=== PATIENT | female | born 1940 | race Caucasian/White ===

== ENCOUNTER → 2018-03-22 08:29 | Outpatient (CLI) | payer MEDICARE, SELFPAY ==
[2018-03-22 12:20] LABS: Absolute Lymphocyte Count 1.37 X10^3/ul (0.83-4.51); Absolute Neutrophil Count 1.4 X10^3/uL (2.0-7.7); Basophil# 0.06 X10^3/uL; Basophil% 1.7 % (0-1); Eosinophil# 0.22 X10^3/uL; Eosinophils% 6.2 % (0-5); Hematocrit 38.2 % (37-47); Hemoglobin 12.8 g/dl (12.0-15.0); Lymphocyte # 1.37 X10^3/ul (4.0); Lymphocyte % 38.5 % (19-41); Mean Corp Hgb Conc 33.5 g/gl (32-36); Mean Corpuscular Volume 83.6 fL (81-99); Monocyte# 0.47 X10^3/uL; Monocyte% 13.2 % (0-10); Neutrophil # 1.43 X10^3/uL (2.7-7.7); Neutrophil % 40.1 % (47-70); Platelet Count 198 K/mm3 (150-450); RBC Distribution Width CV 13.5 % (11.6-14.6); RBC Distribution Width SD 40.8 fl (35.1-43.9); Red Blood Count 4.57 M/mm3 (4.2-5.4); White Blood Count 3.6 K/mm3 (4.4-11.0)
[2018-03-22 12:26] LABS: POSITIVE COUNT NO; POSITIVE DIFFERENTIAL NO; POSITIVE MORPHOLOGY NO
[2018-03-22 12:29] LABS: Anion Gap 8 (5-15); BUN 16 mg/dL (7-18); BUN/Creat Ratio 24.5 RATIO (10-20); Calcium,Total 9.2 mg/dL (8.5-10.1); Chloride 95 mmol/L (98-107); Cholesterol 213 mg/dL (200); Creatinine, Serum 0.65 mg/dL (0.55-1.02); EST Glomerular Filtration Rate 93 mL/min (>60); Est Glom Filt Rate - Afr Amer 113 mL/min (>60); Glucose 96 mg/dL (74-106); High Density Lipoprotein 111 mg/dL; Sodium Level 131 mmol/L (136-145); T4 Free Direct 1.42 ng/dL (0.76-1.46); Thyroid Stim Hormone (TSH) 1.17 uIU/mL (0.358-3.74); Triglycerides 45 mg/dL; Very Low Density Lipoprotein 9 mg/dL (5-40)
== END ==
PROVIDERS: Family Provider Family Medicine; PCP Family Medicine; Visit Provider Family Medicine
DX: E11.9 Type 2 diabetes mellitus without complications (principal); I10 Essential (primary) hypertension; E03.9 Hypothyroidism, unspecified
CPT/HCPCS: 36415; 80048; 80061; 84439; 84443; 85025

== ENCOUNTER → 2018-09-07 10:05 | Outpatient (CLI) | payer MEDICARE, SELFPAY ==
--- NOTE | 2018-09-07 10:21 | CDU_ITS ---
Reason For Study: Vertigo Rt. Velocities/BP Lt. Velocities/BP Prox CCA 79.2/8.79 cm/sec. Prox CCA 112/13.4 cm/sec. Mid CCA 92.6/14.1 cm/sec. Mid CCA 130/17.3 cm/sec. Dist CCA 91.5/13.5 cm/sec. Dist CCA 97.4/15.7 cm/sec. Prox ICA 169/22.3 cm/sec. Prox ICA 128/18.9 cm/sec. Mid ICA 156/20.6 cm/sec. Mid ICA 75.4/21.2 cm/sec. Dist ICA 106/25.5 cm/sec. Dist ICA 93.5/21.2 cm/sec. Rt. ICA/CCA = 1.85. Lt. ICA/CCA = 1.14. Prox ECA 541 cm/sec. Prox ECA 145 cm/sec. Rt. Vert. 82.1 cm/sec. Lt. Vert. 53.4/88.25 cm/sec. Right Extracranial There is homogeneous, smooth atherosclerotic plaque noted in the right common carotid artery. There is heterogeneous, irregular atherosclerotic plaque noted in the right internal carotid artery. The atherosclerotic plaque causes acoustic shadowing. There is intimal thickening but no significant atherosclerotic plaque noted in the right external carotid artery. Antegrade flow is noted in the right vertebral artery. Left Extracranial There is intimal thickening but no significant atherosclerotic plaque noted in the left common carotid artery. There is heterogeneous, irregular atherosclerotic plaque noted in the left internal carotid artery. There is heterogeneous, irregular atherosclerotic plaque noted in the left external carotid artery. Antegrade flow is noted in the left vertebral artery. Procedure Carotid Duplex [id number]. Exam performed in department. 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 Severe stenosis right external carotid Irregular plague at the proximal left internal carotid with 50-69% stenosis. Mild disease left external carotid Patent and antegrade vertebrals bilaterally though higher resistence on the right. Progression of bilateral internal carotid disease is noted from the remote exam of 03/19/09. Ordering Physician: Lyle Oconnell Referring Physician: Daniel Garcia Performed By: Nuzhat Mejia RVT and Student
== END ==
PROVIDERS: Family Provider Family Medicine; PCP Family Medicine; Referring Provider Internal Medicine Cardiovascular Disease; Visit Provider Internal Medicine Cardiovascular Disease
DX: R42 Dizziness and giddiness (principal); R09.89 Other specified symptoms and signs involving the circulatory and respiratory systems
CPT/HCPCS: 93880

== ENCOUNTER → 2018-09-12 11:40 | Outpatient (CLI) | payer MEDICARE, SELFPAY ==
[2018-09-12 12:38] LABS: Hematocrit 38.3 % (37-47); Hemoglobin 12.8 g/dl (12.0-15.0); Mean Corp Hgb Conc 33.4 g/gl (32-36); Mean Corpuscular Hgb 28.6 pg (27.0-32.0); Mean Corpuscular Volume 85.5 fL (81-99); Mean Platelet Vol. 10.5 fl (6.2-12.0); Platelet Count 199 K/mm3 (150-450); RBC Distribution Width CV 12.9 % (11.6-14.6); RBC Distribution Width SD 39.5 fl (35.1-43.9); Red Blood Count 4.48 M/mm3 (4.2-5.4); White Blood Count 4.3 K/mm3 (4.4-11.0)
[2018-09-12 12:42] LABS: Scan Indicated on CBC? Y/N NO
== END ==
PROVIDERS: Family Provider Family Medicine; PCP Family Medicine; Referring Provider Internal Medicine Cardiovascular Disease; Visit Provider Internal Medicine Cardiovascular Disease
DX: R09.89 Other specified symptoms and signs involving the circulatory and respiratory systems (principal); R23.8 Other skin changes
CPT/HCPCS: 36415; 85027

== ENCOUNTER → 2018-12-08 13:40 | Outpatient (CLI) | payer MEDICARE, SELFPAY ==
[2018-09-29 09:36] VITALS: BMI 20.1
--- NOTE | 2018-12-08 13:43 | RAD_ITS ---
STUDY: X-RAY CHEST REASON FOR EXAM: Female, 78 years old. Cough. TECHNIQUE: PA and lateral views of the chest were obtained. Good film quality COMPARISON: X-ray April 26, 2015 FINDINGS: The lungs are clear and expanded. There is no demonstrated pleural abnormality. Normal size heart. Normal mediastinum and dave. Normal visualized pulmonary arteries. Normal visualized aortic arch and descending thoracic aorta. There is prominent dextroscoliosis of the thoracolumbar spine. Normal visualized ribs, clavicles, and shoulders. There is no demonstrated abnormality of the visualized soft tissue structures of the upper abdomen. RAD/Chest PA and Lateral IMPRESSION: No active chest disease. Electronically Signed: Lyle Iqbal, at 12:01 EST Tel , Service support ,
== END ==
PROVIDERS: Family Provider Family Medicine; PCP Family Medicine; Referring Provider Family Medicine; Visit Provider Family Medicine
DX: J18.9 Pneumonia, unspecified organism (principal)
CPT/HCPCS: 71046

== ENCOUNTER → 2019-01-02 12:58 | Outpatient (CLI) | payer MEDICARE, SELFPAY ==
[2018-12-21 10:32] VITALS: BMI 21.0
--- NOTE | 2019-01-02 13:03 | ECHOD_ITS ---
Reason For Study: MURMUR Procedure This was a 2D Doppler, Color Flow transthoracic echocardiogram. Exam performed in department. Left Ventricle Normal size and thickness. The estimated ejection fraction is 65 %. Stage 2 diastolic dysfunction. No regional wall motion abnormalities noted. Right Ventricle Normal size and thickness. Normal systolic function. Atria The left atrium is moderately enlarged. The right atrium is severely enlarged. Normal atrial septum. Mitral Valve Severe mitral annular calcification extending into the posterior leaflet. Mild diffuse mitral valve thickening. Trivial mitral valve insufficiency. Tricuspid Valve Normal tricuspid valve. Mild (1+) tricuspid valve insufficiency. Right ventricular systolic pressure estimated to be 44 mmHg. Mild pulmonary hypertension. Aortic Valve Trisinus/trileaflet aortic valve. Aortic sclerosis, no stenosis. Pulmonic Valve Normal pulmonic valve. Trivial pulmonic valve insufficiency. Great Vessels Normal aortic root. Normal arch. Normal inferior vena cava. Inferior vena cava collapse with sniff. Pericardium/Pleural No pericardial effusion. MMode/2D Measurements & Calculations LVIDd: 4.1 cm IVSd: 1.0 cm Ao root diam: 2.1 cm LVIDs: 2.4 cm LVPWd: 0.99 cm RVDd: 2.8 cm FS: 42.5 % LAV(MOD-sp4): 87.9 ml LVAd ap4: 24.7 cm2 SV(MOD-sp4): 46.2 ml EDV(MOD-sp4): 70.2 ml EDV(sp4-el): 74.0 ml LVAs ap4: 12.6 cm2 ESV(MOD-sp4): 24.1 ml ESV(sp4-el): 23.6 ml EF(MOD-sp4): 65.7 % EF(sp4-el): 68.1 % SV(sp4-el): 50.4 ml LA A4 area: 25.6 cm2 LA dimension(2D): 3.8 cm RA A4 area: 22.4 cm2 Time Measurements MV dec time: 0.39 sec Doppler Measurements & Calculations MV E max juancarlos: 129.0 cm/sec Lat Peak E' Juancarlos: 5.4 cm/sec Med Peak E' Juancarlos: 8.1 cm/sec MV A max juancarlos: 68.0 cm/sec E/E' lat: 24.1 E/E' med: 15.9 MV E/A: 1.9 MV V2 max: 151.1 cm/sec Ao V2 max: 142.0 cm/sec LV V1 max: 86.9 cm/sec MV max P.1 mmHg Ao max P.1 mmHg LV V1 max P.0 mmHg MV V2 mean: 73.3 cm/sec Ao V2 mean: 99.8 cm/sec LV V1 mean P.9 mmHg MV mean P.6 mmHg Ao mean P.4 mmHg LV V1 mean: 66.0 cm/sec MV V2 VTI: 40.4 cm Ao V2 VTI: 35.4 cm LV V1 VTI: 24.7 cm PA V2 max: 71.1 cm/sec PI end-d juancarlos: 63.7 cm/sec TR max juancarlos: 291.9 cm/sec TR max P.1 mmHg MV P1/2t-pr_phl: 76.3 msec Interpretation Summary The estimated ejection fraction is 65 %. Stage 2 diastolic dysfunction. The left atrium is moderately enlarged. The right atrium is severely enlarged. Trivial mitral valve insufficiency. Mild (1+) tricuspid valve insufficiency. Right ventricular systolic pressure estimated to be 44 mmHg. Mild pulmonary hypertension. Compared to echo report dated 12/14/2014, LV function has remained the same, but RVSP has gone from 28 to 44 mm Hg. Ordering Physician: Janice Chavez/Lyle Oconnell Referring Physician: BERNARD MALIK Performed By: Karlene Lubin, UTE, RVT
== END ==
PROVIDERS: Family Provider Family Medicine; PCP Family Medicine; Referring Provider Physician Assistant Medical; Visit Provider Physician Assistant Medical
DX: R01.1 Cardiac murmur, unspecified (principal)
CPT/HCPCS: 93306

== ENCOUNTER 2019-02-13 07:28 | Day surgery (SDC) | payer MEDICARE, SELFPAY ==
[2019-02-01 10:10] VITALS: BMI 19.7
[2019-02-13 07:47] VITALS: BP 126/64; PULSE 55; RESP 18; TEMP 36.8; O2SAT 100; BMI 20.7
[2019-02-13 08:01] LABS: Bedside Glucose 141 mg/dL (70-110)
--- NOTE | 2019-02-13 08:30 | RAD_ITS ---
FLUOROSCOPIC GUIDED CERVICAL FACET C4-C7 LEFT PAIN BLOCK INJECTION: REASON FOR EXAM: Female, 78 years old. Neck pain FLUOROSCOPY TIME (if supplied): 17.8 S 1.22 MGY TECHNIQUE: Intraoperative fluoroscopy. For intraoperative views. COMPARISON: None. FINDINGS: Degenerative changes are noted in the cervical spine RAD/Cerv Spine 2 or 3 Views IMPRESSION: Successful cervical spine fluoroscopic guided injection. Electronically Signed: Aditya Calvert, at 14:11 EDT Tel , Service support ,
[2019-02-13] MEDS: MethylPREDNISolone Acetate 80 MG/ML Vial (08:48)
[2019-02-13] MEDS: Bupivacaine 0.25% 30 ML Vial (08:48)
[2019-02-13 08:57] VITALS: BP 126/64; BP 134/51; PULSE 55; RESP 16; TEMP 36.5; O2SAT 98
[2019-02-13 09:05] VITALS: BP 126/64; BP 133/51; PULSE 62; RESP 16; O2SAT 98
[2019-02-13 09:10] VITALS: BP 126/64; BP 133/51; PULSE 65; RESP 16; O2SAT 98
[2019-02-13 09:15] VITALS: BP 126/64; BP 159/62; PULSE 68; RESP 16; TEMP 36.6; O2SAT 100
[2019-02-13 10:07] VITALS: BP 126/64
--- NOTE | 2019-02-13 10:55 | OP.PCM_ITS ---
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 Report of Operation Date of Procedure: 02/13/19 Pre-Operative Diagnosis: Cervical spondylosis, cervical degenerative disc disease, cervical facet arthropathy Post-Operative Diagnosis: Cervical spondylosis, cervical degenerative disc disease, cervical facet arthropathy Surgery/Procedure Performed:: Right sided cervical facet steroid injection C4, C5, C6, C7 Description of Surgical Findings:: PROCEDURE: Right-sided cervical facet steroid injection C4, C5, C6, C7 PREOPERATIVE DIAGNOSES: Cervical spondylosis, cervical degenerative disc disease, and cervical facet arthropathy POSTOPERATIVE DIAGNOSES: Cervical spondylosis, cervical degenerative disc disease, and cervical facet arthropathy ANESTHESIA: MAC COMPLICATIONS: None BLOOD LOSS: Minimal PROCEDURE IN DETAIL: History and physical today was reviewed. Risks and benefits of the procedure were explained. The patient understood, agreed to our procedure, and informed consent was obtained. IV inserted per routine protocol. The patient was taken to the operating room, placed in a prone position with a pillow positioned underneath the chest. The neck area was prepped and draped in a sterile fashion using iodine x3. Under fluoroscopy guidance, on AP view, C4 through C7 vertebral bodies were visualized, at approximately 10 degrees starting on the right C4 ending on the right C7 passing through the C5- C6 using a 25-gauge 3-1/2 inch spinal needle the needle was advanced via the skin through the needle's maneuver and directed towards the epiphyseal junction of each corresponding vertebra once the tip of the needle was at the vicinity of the medial branch and contact with the bone after negative aspiration for blood or CSF and confirmation AP oblique as well as lateral view a total of 4 cc of preservative-free 0.25% Marcaine with 80 mg of Depo-Medrol were injected in divided doses between those 4 levels the needles were then removed intact patient experienced no sinus symptoms of intrathecal or intravascular injection patient experienced no paresthesia the procedure was completed without any apparent difficulty any complication the patient appeared to tolerate well. ASSESSMENT AND PLAN: This is an 78-year-old Female with cervical spondylosis, cervical degenerative disc disease, and cervical facet arthropathy, status post right-sided cervical facet steroid injection C4 through C7. The patient will continue her current medications. The patient will follow up in approximately 2 weeks fo reevaluation.
== END 2019-02-13 10:08 | disposition home or self-care (01) ==
LOC: SDC 07:31 → AC 07:31
PROVIDERS: Family Provider Family Medicine; PCP Family Medicine; Referring Provider Anesthesiology Pain Medicine; Visit Provider Anesthesiology Pain Medicine
PROC: 3E0U3BZ Introduction of Anesthetic Agent into Joints, Percutaneous Approach (ICD-10-PCS; CPT 64490; principal; 2019-02-13 08:25)
DX: M47.892 Other spondylosis, cervical region (principal); M50.321 Other cervical disc degeneration at C4-C5 level; M46.82 Other specified inflammatory spondylopathies, cervical region; F32.9 Major depressive disorder, single episode, unspecified; F41.9 Anxiety disorder, unspecified; I34.1 Nonrheumatic mitral (valve) prolapse; I10 Essential (primary) hypertension; I48.92 Unspecified atrial flutter; E78.5 Hyperlipidemia, unspecified; E03.9 Hypothyroidism, unspecified; M19.90 Unspecified osteoarthritis, unspecified site; M51.36 Other intervertebral disc degeneration, lumbar region; M48.061 Spinal stenosis, lumbar region without neurogenic claudication; R73.03 Prediabetes; Z79.82 Long term (current) use of aspirin; Z79.891 Long term (current) use of opiate analgesic; Z79.01 Long term (current) use of anticoagulants; Z79.899 Other long term (current) drug therapy
CPT/HCPCS: 64491; 64492; 64490; 72040; 82962; J7120

== ENCOUNTER → 2019-03-01 14:27 | Outpatient (CLI) | payer MEDICARE, SELFPAY ==
[2019-02-13 07:47] VITALS: BMI 20.7
--- NOTE | 2019-03-01 14:33 | RAD_ITS ---
STUDY: X-RAY - THORACIC SPINE REASON FOR EXAM: Female, 78 years old. Chronic back pain. TECHNIQUE: 2 view(s) of the thoracic spine were obtained. COMPARISON: Comparison is made with prior study dated June 18, 2014. FINDINGS: There is an increase in the normal thoracic kyphosis. Stable dextroscoliosis of the lower thoracic and upper lumbar spine. There is demineralization of the thoracic spine with endplate spondylosis. There is multilevel disc space narrowing of the thoracic spine. Calcification of the aortic arch and descending thoracic aorta. RAD/Thoracic Spine 2 Views IMPRESSION: Dextroscoliosis. Multilevel spondylosis and the disc space narrowing. Electronically Signed: Holland Ferreira, at 8:49 EDT , Service support ,
== END ==
PROVIDERS: Family Provider Family Medicine; PCP Family Medicine; Referring Provider Nurse Practitioner Family; Visit Provider Nurse Practitioner Family
DX: M54.6 Pain in thoracic spine (principal)
CPT/HCPCS: 72070

== ENCOUNTER → 2019-04-27 13:40 | Outpatient (CLI) | payer MEDICARE, SELFPAY ==
--- NOTE | 2019-04-27 13:46 | CT_ITS ---
STUDY: CT BRAIN WITHOUT CONTRAST REASON FOR EXAM: Female, 78 years old. Memory loss. RADIATION DOSAGE (If Supplied By Facility): CTDIvol = ( 44.99 ) mGy, DLP = ( 796.11 ) mGycm TECHNIQUE: Transaxial CT imaging of the brain was performed without administration of intravenous contrast material. Individualized dose optimization techniques were used for this CT. COMPARISON: No relevant priors. FINDINGS: Normal soft tissue structures. Normal calvarium. Normal size ventricles and extra-axial spaces for the patient's age. There are areas of decreased attenuation within the white matter tracts of the supratentorial brain, consistent with microvascular disease changes. Normal basal ganglia and thalami. Normal brainstem. Normal cerebellum. There is no intracranial hemorrhage. There are no findings of an acute ischemic infarction. Normal visualized paranasal sinuses. CT/Brain/Head without Contrast IMPRESSION: Chronic involutional changes without evidence of acute intracranial or calvarial abnormality. Electronically Signed: Kings Hammond DO at 17:27 EDT Tel [phone], Service support ,
== END ==
PROVIDERS: Family Provider Family Medicine Geriatric Medicine; PCP Family Medicine Geriatric Medicine; Referring Provider Internal Medicine; Visit Provider Internal Medicine
DX: R41.3 Other amnesia (principal)
CPT/HCPCS: 70450

== ENCOUNTER → 2019-05-18 | Outpatient (CLI) | payer MEDICARE, SELFPAY ==
--- NOTE | 2019-05-18 14:23 | BI_ITS ---
MAMMOGRAPHY - BILATERAL SCREENING 3-D TOMOSYNTHESIS REASON FOR EXAM: Female, 78 years old. Bilateral Screening 3-D tomosynthesis PERTINENT HISTORY: No significant family history. TECHNIQUE: 2-D mammograms and 3-D Tomosynthesis of the breast (s) were performed. CAD was performed. COMPARISON: August 30, 2014. FINDINGS: The breast composition is heterogeneous prominence of the fibroglandular tissue without obvious spiculated lesion, microcalcifications, bilateral skin thickening noted but no nipple retraction in either side. There are clusters of microcalcification seen within the skin in the upper and inferior aspect of the left base. Benign calcifications noted within the parenchyma bilaterally. BI/SCREEN MAMM (CAD) W/MERRILL BILAT IMPRESSION: No mammographic signs of malignancy. Routine yearly mammograms recommended. BIRADS-2 FOLLOW UP RECOMMENDATION: Yearly follow up mammogram recommended. (A) Approximately 10% of breast cancers are not detected by mammography. A normal mammogram should not delay biopsy of a clinically suspicious abnormality. Electronically Signed: Ghazala Finnegan, at 12:08 EDT Tel , Service support ,
--- NOTE | 2019-05-18 14:26 | BD_ITS ---
STUDY: DUAL ENERGY X-RAY ABSORPTIOMETRY / DXA REASON FOR EXAM: Female, 78 years old. The patient is postmenopausal. Loss of height. TECHNIQUE: Bone Mineral Density (BMD) measurements of lumbar spine and bilateral hips were obtained. COMPARISON: Comparison is made with prior examination dated April 02, 2015. FINDINGS: Lumbar Spine (L1-L4): g/cm2 (0.833) / T-score (-3.1) / Z-score (-1.2) Findings are suggestive of osteoporosis with a high fracture risk. Left Femur Total: g/cm2 (0.723) / T-score (-2.3) / Z-score (-0.2) Left Femoral Neck: g/cm2 (0.712) / T-score (-2.3) / Z-score (-0.2) Right Femur Total: g/cm2 (0.669) / T-score (-2.7) / Z-score (-0.6) Right Femoral Neck: g/cm2 (0.7-1) / T-score (-2.3) / Z-score (-0.1) The T-Scores on the most recent prior examination were: Lumbar Spine (L1-L4): There has been worsening of bone density since the previous examination. Left Femur Total: which represents a worsening of 6.6%. Right Femur Total: which represents a worsening of 9.8% . BD/Dexa Bone Density Study IMPRESSION: The patient is considered osteoporotic as outlined below according to World Miss[employer] Organization (WHO) criteria with a high fracture risk. There has been worsening of bone density since the previous examination. Reference Information: The T-score is the number of standard deviations above or below the standard which is normal for young adults at their peak bone mineral density. The World Health Organization (WHO) interprets the T-scores as follows: Above -1 Normal bone density Between -1 and -2.5 Osteopenia Equal to / or below -2.5 Osteoporosis As a practical clinical guideline, osteopenia may be graded as follows: Mild -1 through -1.5 Moderate -1.6 through -2.0 Severe -2.1 through -2.4 The Z-score is the number of standard deviations above or below age-matched controls. A Z-score of less than -1.5 would be considered abnormal. References: 1. NIH Osteoporosis and Related Bone Diseases http://www.osteo.org 2. International Society for Clinical Densitometry http://www.iscd.org 3. National Osteoporosis Foundation http://www.nof.org Electronically Signed: Holland Ferreira, at 15:09 EDT , Service support ,
== END | disposition home or self-care (01) ==
LOC: OPBD 14:20
PROVIDERS: Family Provider Internal Medicine; PCP Internal Medicine; Referring Provider Internal Medicine; Visit Provider Internal Medicine
DX: Z12.31 Encounter for screening mammogram for malignant neoplasm of breast (principal); Z78.0 Asymptomatic menopausal state
CPT/HCPCS: 77063; 77067; 77080

== ENCOUNTER → 2019-05-30 15:58 | Outpatient (CLI) | payer MEDICARE, SELFPAY ==
--- NOTE | 2019-05-30 16:01 | VDLE_ITS ---
Reason For Study: swelling RIGHT LEFT GSV is normal. CFV is compressible, spontaneous, phasic, CFV is compressible, spontaneous, phasic, competent, and demonstrates normal competent and demonstrates normal augmentation. augmentation. FV is compressible, spontaneous, phasic, competent and demonstrates normal augmentation. POP V is compressible, spontaneous, phasic, competent and demonstrates normal augmentation. T/P Trunk is compressible. PTV is compressible. RT PerV is compressible. Hypoechoic area behind the knee measuring 2.57 x .94 cm. Area is nonvascular. Procedure Exam performed in department. The exam was diagnostic. A preliminary report was called and/or faxed to [facility]. Interpretation Summary Deep veins of the right lower extremity are patent and compressible segmentally. There is no evidence of right lower extremity deep vein thrombosis. Valvular competence appears intact within the proximal deep venous system on the right . The right greater saphenous vein appears patent and compressible segmentally. A non-vascular, hypoechoic structure is noted in the right popliteal space, measuring 2.57 cm x 0.94 cm. This probably represents a popliteal cyst. Clinical correlation is advised. Ordering Physician: Karla Bhagat Performed By: Anant Doan, RVT
--- NOTE | 2019-05-30 16:25 | RAD_ITS ---
STUDY: X-RAY - RIGHT FOOT CLINICAL: Female, 78 years old. Right foot pain. Stubbed toe 2 weeks ago. TECHNIQUE: 3 view(s) of the foot. COMPARISON: None. FINDINGS: Generalized osteopenia. Normal talus, calcaneus, and tarsal bones. Hemarthrosis of the visualized subtalar, talonavicular, calcaneocuboid, tarsal and tarsometatarsal articulations. Normal metatarsi. There is mild degenerative arthrosis of the metatarsophalangeal joint of the hallux with a hallux valgus deformity. Normal tibial and fibular sesamoid bones. Normal interphalangeal joint of the great toe. Normal phalanges of the great toe. Normal second through fifth metatarsophalangeal joints. Normal interphalangeal joints and phalanges of the lesser toes. The soft tissue structures are unremarkable. RAD/Foot min 3 Views IMPRESSION: Osteopenia and degenerative changes right foot. There is no fracture or dislocation. Electronically Signed: Kings Hammond DO at 16:37 EDT Tel [phone], Service support ,
== END ==
PROVIDERS: Family Provider Internal Medicine; PCP Internal Medicine; Referring Provider Internal Medicine; Visit Provider Internal Medicine
DX: M79.89 Other specified soft tissue disorders (principal); M79.674 Pain in right toe(s)
CPT/HCPCS: 73630; 93971

== ENCOUNTER → 2019-09-14 11:03 | Outpatient (CLI) | payer MEDICARE, SELFPAY ==
--- NOTE | 2019-09-14 11:05 | CDU_ITS ---
Reason For Study: carotid stenosis Rt. Velocities/BP Lt. Velocities/BP Prox CCA 68.2/9.5 cm/sec. Prox CCA 84.9/9.1 cm/sec. Mid CCA 70.8/13.4 cm/sec. Mid CCA 105.8/16.8 cm/sec. Dist CCA 70.8/13.4 cm/sec. Dist CCA 84.9/11.3 cm/sec. Prox ICA 202.9/29.3 cm/sec. Prox ICA 117.5/18.8 cm/sec. Mid ICA 132.3/20.4 cm/sec. Mid ICA 66.7/13.9 cm/sec. Dist ICA 103.8/24.8 cm/sec. Dist ICA 80.2/23.7 cm/sec. Rt. ICA/CCA = 2.9. Lt. ICA/CCA = 1.1. Prox ECA 508.9 cm/sec. Prox ECA 161.3 cm/sec. Rt. Vert. 58.6 cm/sec. Lt. Vert. 64.2/16.3 cm/sec. Right Extracranial There is homogeneous, smooth atherosclerotic plaque noted in the right common carotid artery. There is heterogeneous, irregular atherosclerotic plaque noted in the right internal carotid artery. There is homogeneous, smooth atherosclerotic plaque noted in the right external carotid artery. Antegrade flow is noted in the right vertebral artery. Left Extracranial There is homogeneous, smooth atherosclerotic plaque noted in the left common carotid artery. There is heterogeneous, irregular atherosclerotic plaque noted in the left internal carotid artery. There is heterogeneous, irregular atherosclerotic plaque noted in the left external carotid artery. Antegrade flow is noted in the left vertebral artery. Procedure Carotid Duplex [id number]. The exam was diagnostic. Exam performed in department. Interpretation Summary Irregular calcific plague at the proximal right internal and external carotid arteries. 50-69% stenosis right internal carotid >50% stenosis right external carotid Irregular plague at the proximal left internal and external carotid arteries. <50% stenosis left internal carotid <50% stenosis left external carotid Patent and antegrade vertebrals bilaterally Slight velocity elevation right internal carotid since previous exam of 09/07/18 Ordering Physician: Enmanuel Matthews Performed By: Anant Doan RVT
== END ==
PROVIDERS: Family Provider Internal Medicine; PCP Internal Medicine; Referring Provider Surgery; Visit Provider Surgery
DX: I65.23 Occlusion and stenosis of bilateral carotid arteries (principal); R09.89 Other specified symptoms and signs involving the circulatory and respiratory systems
CPT/HCPCS: 93880

== ENCOUNTER → 2019-12-11 10:38 | Outpatient (CLI) | payer MEDICARE, SELFPAY ==
[2019-09-22 13:31] VITALS: BMI 19.1
--- NOTE | 2019-12-11 10:45 | RAD_ITS ---
STUDY: X-RAY - PELVIS AND RIGHT HIP REASON FOR EXAM: Female, 79 years old. PAIN AFTER FALL TECHNIQUE: 3 views of the pelvis and hip. COMPARISON: Comparison is made with prior examination dated July 31, 2017. FINDINGS: There is a non-specific bowel gas pattern. Calcified fibroid uterus. Normal bilateral iliac wings, sacroiliac joints and visualized sacrum. Normal bilateral superior and inferior pubic rami. Normal pubic symphysis. Normal bilateral ischial tuberosities. Normal visualized femoral head. Normal acetabulum. There is moderate articular joint space narrowing of the hip. Dextroscoliosis of the lumbar spine with the disc space narrowing in the lower lumbar spine. RAD/HIP, UNI W/ Pelvis 2-3 Views IMPRESSION: Degenerative changes of the hip joint. No acute fracture is seen. Electronically Signed: Holland Ferreira, at 11:14 EST , Service support ,
== END ==
PROVIDERS: Family Provider Internal Medicine; PCP Internal Medicine; Referring Provider Internal Medicine; Visit Provider Internal Medicine
DX: M25.551 Pain in right hip (principal)
CPT/HCPCS: 73502

== ENCOUNTER 2020-01-29 10:30 | Outpatient (RCR) | payer MEDICARE, SELFPAY ==
[2019-09-22 13:31] VITALS: BMI 19.1
--- NOTE | 2019-12-26 12:30 | HP.PTEVAL_ITS ---
Patient's Visit Information ELLEN ESTRADA is a 79 year old F referred to Physical Therapy by Karla Bhagat MD with a diagnosis of RIGHT HIP BURSITIS, WEAKNESS AND FALLS.. Date of Evaluation: 12/26/19 Physical Therapist: Divina Leblanc PT, Cert MDT - Visit Plan Frequency: 2-3x /Week Duration: 4-6 Weeks Plan: GAIT TRAINING. CORE STABILITY. SANDI LE ROM, STRETCHING AND STRENGTHENING. - Subjective Findings: Present symptoms: RIGHT HIP PAIN FROM FALL TWO WEEKS AGO. STATES SHE HAD AN INJECTION FROM DR. BHAGAT AND SHE REPORTS THAT HELPED. PATIENT REPORTS SHE ALSO HAS BACK PAIN. SHE HAS GOOD DAYS AND BAD DAYS. SHE HAS SCOLIOSIS. SHE REPORT SHE HAS BEEN FALLING. SHE REPORTS SHE FELL ABOUT 2 AND A HALF WEEKS AGO AT A RESTRAUNT FOR NO APPARENT REASON. SHE STATES SHE HAD A FALL AT HOME LAST SPRING TOO. FX'D PELVIC BONE ABOUT 3 YEARS AGO FALLING BACKWARDS TOO. Pain Scale: WORST 5/10, LEAST 0/10. Currently: 4/10. Commenced as a result of: FALL? Symptoms at onset: THE PAIN WAS MORE IN THE BACK OF THE HIP BEFORE AND NOW IT IS MORE IN THE FRONT OF THE HIP. Worse: STANDING, TRYING TO WALK OUTSIDE. Better: SITTING. Disturbed sleep: SOMETIMES. Previous history/Previous treatment: UNREMARKABLE. Gait: PRETTY NORMAL FOR ME. Imaging: HIP AND PELVIC X-RAY: There is moderate. articular joint space narrowing of the hip. Dextroscoliosis of the lumbar spine with the disc space narrowing in the. lower lumbar spine. OTHER: PATIENT REPORTS HER PAIN AND TOLERANCE TO WEIGHT BEARING IS GETTING BETTER. - Objective Sitting/Standing Posture: POOR. SCOLIOSIS. INCREASED TRUNK FLEXION. Other Observations: PATIENT AMUBLATES INDEP'LY INTO PT WITHOUT ANY ASSISTIVE DEVICES AND NO LOB. SHE REPORTS SHE DOES HAVE A CANE AND A WALKING STICK BUT SHE OFTEN DOESN'T USE THEM. PATIENT IS UE DEPENDENT TO TRANSFER FROM SIT TO STAND AND REVERSE. LARGE RIGHT RIB HUMP. UNABLE TO SLS ON THE RIGHT LE. ABLE TO SLS ON THE LLE X 5 SEC. Motor deficit: SANDI LE'S GROSSLY 4/5. Sensory deficit: SANDI LE LIGHT TOUCH SENSATION IS INTACT AND SYMMETRICAL. ROM deficit: TIGHT SANDI LE HS'S AND GASTROC SOLEUS COMPLEX'S. DURAL SIGNS: NEGATIVE. Lumbar mvmt loss: flex - NIL. ext - TAMI. R SG - TAMI. L SG - MOD. Core strength: POOR. Palpation: MILD RIGHT ANTERIOR HIP PAIN WITH PALPATION. TREATMENT: NEUROMUSCULAR REEDUCATION - RETRAINING OF MVMT AND POSTURE FOR SITTING, LYING AND STANDING ACTIVITIES INCLUDING GAIT TRAINING WITH STRAIGHT CANE. PATIENTS TECHNIQUE WITH THE CANE IMPROVED A LOT WITH TRAINING. ALSO SHOWED PATIENT HOW TO ADJUST HER CANE AT HOME PROPERLY AND WILL BRING WITH HER NEXT TIME. ANTICIPATE REINFORCEMENT OF PROPER TECHNIQUE WITH CANE BEING NEEDED. - Goals Goal 1:: INDEP AND SAFE GAIT ON ALL SURFACES WITH LEAST ASSSITIVE DEVICE. Goal Time Frame: 4-6 Weeks Goal 2:: INCREASE SANDI LE FUNCTIONAL STRENGTH Goal Time Frame: 4-6 Weeks Goal 3:: DECREASE C/O RIGHT HIP PAIN Goal Time Frame: 4-6 Weeks Goal 4:: PATIENT WILL BE INDEP WITH A HEP FOR CONTINUED IMPROVEMENT ONCE FORMAL PHYSICAL THERPAY CONCLUDES. Goal Time Frame: 4-6 Weeks - Rehabilitation Potential Rehabilitation Potential: Fair - Anticipated Interventions Patient/Client Instruction: Educate patient on: Condition, Plan of Care, Risk Factors, Benefits of Fitness Program For the Purpose of:: To improve self management Therapeutic Exercise to Include: Strength training, Balance training, Body mechanics, Postural training, Flexibilty training, Gait and locomotor training, Dynamic Lumbar Stabilization For the Purpose of:: To decrease pain, To improve muscle performance and motor function, To increase tolerance to activity/condition/position, To improve ability of physical actions for home/community/work/leisure, To improve gait and locomotor functions Thank you for the opportunity to evaluate your patient. For Medicare and Medicare HMO plans, please review the plan of care and approve it. It will need to be FAXED BACK to us at [phone] for Medicare purposes. For Medicare only, by signing this I certify the plan of care. Please let me know if there are questions or concerns regarding this plan of care. Physician Signature: ___Date:
--- NOTE | 2020-01-29 12:23 | HP.PTDCSUM ---
HP - PT D/C Summary It has been my pleasure to treat ELLEN ESTRADA under orders from Karla Bhagat MD, for the diagnosis of RIGHT HIP BURSITIS, WEAKNESS AND FALLS. for a total of 9 visit(s). Discharge Date: Please see the following information for a summary of their discharge status. - Subjective Subjective: PATIENT REPORTS HER HIP IS BETTER. SHE REPORTS IT IS RARELY A PROBLEM NOW. BY EVENING SOME LEFT HIP PAIN BECAUSE ON HER FEET MOST OF THE DAY. REPORTS SHE IS DOING HER HEP AND THE EX'S ARE GOING OK. - Pain R hip Pain Intensity (Out of 10): 0 R back pain Pain Intensity (Out of 10): 0 Left Hip Pain Intensity (Out of 10): 1 - Overall Improvement % Improvement: 90 - Objective Objective/Function: PATIENT WAS SEEN TODAY FOR RE-ASSESSMENT OF PROGRESS TOWARD THE SET PT GOALS AND THE NEED FOR FURTHER PHYSICAL THERAPY VS READINESS FOR DISCHARGE. UPON EXAM TODAY PATIENT FINDINGS ARE SIMILAR TO INITIAL EVAL BUT WITH DECREASED C/O PAIN AND INCREASED FUNCTION. - Goals Goal 1:: INDEP AND SAFE GAIT ON ALL SURFACES WITH LEAST ASSSITIVE DEVICE. Goal Progress: Progressing Goal 2:: INCREASE SANDI LE FUNCTIONAL STRENGTH Goal Progress: Progressing Goal 3:: DECREASE C/O RIGHT HIP PAIN Goal Progress: Progressing Goal 4:: PATIENT WILL BE INDEP WITH A HEP FOR CONTINUED IMPROVEMENT ONCE FORMAL PHYSICAL THERPAY CONCLUDES. Goal Progress: Progressing - Plan Plan: D/C TO INDEP EX. PATIENT IS AGREEABLE. - D/C Information If there are questions or concerns regarding this patient's physical therapy, please feel free to call me at [phone]. Thank you for the referral of this patient. Sincerely, Divina Leblanc, PT, Cert MDT
== END 2020-01-29 19:00 | disposition home or self-care (01) ==
LOC: PT 10:30
PROVIDERS: PCP Internal Medicine; Referring Provider Internal Medicine; Visit Provider Internal Medicine
DX: M70.71 Other bursitis of hip, right hip (principal); M25.551 Pain in right hip; W19.XXXA Unspecified fall, initial encounter
CPT/HCPCS: 97110; 97112; 97162; 97164

== ENCOUNTER 2020-02-08 18:15 | Observation (INO) | payer MEDICARE, SELFPAY ==
[2020-02-06 15:29] VITALS: BMI 19.4
[2020-02-08 18:15] VITALS: BP 152/65; PULSE 83; RESP 16; TEMP 36.8; O2SAT 97; BMI 19.7
--- NOTE | 2020-02-08 18:36 | ED.DCSUM_ITS ---
History of Present Illness Chief Complaint: Lower Extremity Injury Informant: Patient Onset: Today Current Severity: Moderate Maximum Severity: Moderate Narrative: Patient presents with left knee injury after a fall. She states around 830 this morning she was rushing around home trying to get to the hospital where her is being treated. She caught her foot on the floor and fell landing on her left knee. As the day goes on her knee gets more stiff and she has had more difficulty ambulating. She states she is able to stand but has difficulty with bending the knee. She denies any other injury from her fall. She is on Plavix. 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 Past Medical History - Allergies and Home Meds Allergies/Adverse Reactions: Allergies neomycin [Neomycin] Allergy (Severe, Verified 02/06/20 15:38) Unknown Tetracyclines Allergy (Severe, Verified 02/06/20 15:38) Anaphylaxis Sulfa (Sulfonamide Antibiotics) Allergy (Verified 02/06/20 15:38) Unknown Primary Care Physician: Karla Bhagat MD [Primary Care Provider] - 1 Week if not improving Prior records reviewed: Yes Surgical History: tonsillectomy, - Lives: Spouse/ Significant Other Smoking Status: Never smoker Review of Systems General: Denies: Chills, Fever Eyes: Denies: Visual changes - bilaterally ENT: Denies: Bilateral ear pain Cardiovascular: Denies: Chest pain Respiratory: Denies: Dyspnea, Cough Gastrointestinal: Denies: Abdominal pain, Nausea, Vomiting, Diarrhea Musculoskeletal: Reports: Extremity Pain. Denies: Neck pain, Back pain Neurological: Denies: Headache Allergy: Denies: Uticaria Physical Exam Vital Signs/Narrative: Vital Signs Temp Pulse Resp BP Pulse Ox 02/08/20 18:15 98.3 F 83 16 152/65 H 97 Inital Vital Signs reviewed: Yes General: Well nourished, Well developed Head: Normocephalic ENT: Moist mucous membranes Neck: Supple Cardiovascular: Regular rate, Regular rhythm Respiratory: No distress, CTA bilaterally Abdomen: Soft, Nontender Extremities: - - Patient has edema and ecchymosis of the left anterior knee. Sh e is able to hold her heel off the bed. She has significant tenderness with palpation over the distal femur. No tenderness over the proximal and mid thigh. No tenderness of the lower leg. Strong distal pulses are noted. Neurological: Alert, Oriented x3 Psychological: Normal affect Diagnostic/Tx/Re-eval Impressions Knee X-Ray 02/08/20 18:48 IMPRESSION: Marked soft tissue swelling without acute fracture or dislocation identified. 02/08/20 18:48 Knee 4 or More Views [RAD] Stat - Medical Decision Making Test results are discussed with the patient. She is able to get up to the bedside commode while here. She will be given a tab of [place] now and a prescription for the same. Arnoldo wrap will be applied. Patient's son will be with her tonight. She denies need for a walker or crutches. Addendum: Nursing staff wrapped the patient's knee. She complained of severe pain with this it is now not so sure that she can go home. Friend at bedside is quite concerned and thinks there may be something broken that we missed. I exp lained to the patient that there is no evidence of bony injury, however there are multiple structures in the knee that could only be visualized with MRI. I am not able to get this tonight. Family does not believe they can get her in her home tonight. I will speak with hospitalist regarding admission for pain control and physical therapy evaluation. ED Disposition - Plan for ED Patient: Disposition: Acute Care Hospital [facility] Diagnosis: Contusion of left knee Instructions: CONTUSION, Lower Extremity Prescriptions: Hydrocodone Bitart/Apap 5-325 [[place] 5MG-325MG] 1 tab PO Q6H PRN PRN 3 Days #10 tab PRN Reason: Pain Transmission Status: Received by ERMELINDA CANDELARIA-[address] [facility] Referrals: Karla Bhagat MD [Primary Care Provider] - 1 Week if not improving
--- NOTE | 2020-02-08 18:48 | RAD_ITS ---
STUDY: X-RAY - LEFT KNEE REASON FOR EXAM: Female, 79 years old. LEFT KNEE PAIN AFTER FALL THIS MORNING TECHNIQUE: 4 view(s) of the knee. COMPARISON: None. FINDINGS: No acute fracture, dislocation or osseous destruction. No significant joint space narrowing. No significant productive changes. Marked anterior and suprapatellar soft tissue swelling. IMPRESSION: Marked soft tissue swelling without acute fracture or dislocation identified. Electronically Signed: Reese Malcolm, at 19:47 EDT Tel , Service support , RAD/Knee 4 or More Views
--- NOTE | 2020-02-08 19:18 | CM.ED ---
SOCIAL WORK INFORMANT: NURSE REASON FOR REFERRAL: RESOURCES FOR MET WITH PATIENT AND PATIENT'S FRIEND IN ROOM. PATIENT GAVE PERMISSION FOR THIS WORKER TO SPEAK OPENLY WITH FRIEND PRESENT. INTRODUCED ROLE AND REASON FOR REFERRAL. 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 PATIENT REPORTS SPOKE WITH SONKOBE AND HE WILL BE STAYING WITH PATIENT AND THIS EVENING AND TOMORROW. DISCUSSED FUTURE PLANNING FOR . MUCH EMOTIONAL SUPPORT AND ACTIVE LISTENING PROVIDED. RESOURCES GIVEN ON PRIVATE DUTY SERVICES, ASSISTED LIVING AND LONGTERM. PATIENT REPORTS WILL DISCUSS WITH SON. Paulina SAGASTUME MSW, BED SETTER.
[2020-02-08] MEDS: HYDROcodone Bitartrate/Apap 5/325 Tablet PO (21:02)
--- NOTE | 2020-02-08 21:21 | PCM.HP.STD ---
Problem List (1) Contusion of left knee Status: Acute Qualifiers: Encounter type: initial encounter Qualified Code(s): S80.02XA - Contusion of left knee, initial encounter (2) Diabetes mellitus, type II Status: Chronic Qualifiers: Diabetes mellitus fpc insulin use: without fpc use Diabetes mellitus complication status: with other specified complication Qualified Code(s): E11.69 - Type 2 diabetes mellitus with other specified complication (3) Carotid stenosis, bilateral Status: Chronic (4) Essential hypertension Status: Chronic (5) Hypothyroidism Status: Chronic Qualifiers: Hypothyroidism type: unspecified Qualified Code(s): E03.9 - Hypothyroidism, unspecified (6) Hyperlipidemia Status: Chronic Qualifiers: Hyperlipidemia type: pure hypercholesterolemia Qualified Code(s): E78.00 - Pure hypercholesterolemia, unspecified; E78.0 - Pure hypercholesterolemia History of Present Illness Date of Admission: 02/08/20 Chief Complaint: Fall, L knee pain, debility The patient is a 79 y/o F w/ PMHx: HTN, HLD, Depression, BL Carotid stenosis, Hypothyroidism, Diabetes mellitus type II who presents to the [facility] ED on 02/08/20 with history of mechanical fall on day of ED presentation with noted unfortunate fall after catching her foot, landing hard directly on her left knee with severe knee edema, pain, inability to bear weight prompting eventual ED presentation. Patient rates pain 10/10 with movement attempts or palpation attempts with more severe sharp pain otherwise ongoing dull aching throb 5-7/10. Work-up in the ED included T 98.3, heart rate 83, BP 152/65, respiratory rate 16, 87% on room air, plain film of the left knee with marked soft tissue edema with no evidence of acute fracture or dislocation identified. In the ED patient ministered [place]. 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 carotid bruits (Chronic) History of thyroidectomy (Chronic) History of left heart catheterization (Chronic 12/28/14) normal coronary arteries Hypothyroidism (Chronic) Hyperlipidemia (Chronic) Medical History: Medical History (Last Reviewed 02/05/20 @ 09:07 by Adela Soto) Carotid stenosis, bilateral (Acute) I65.23 Essential hypertension (Chronic) I10 Bilateral carotid bruits (Chronic) R09.89 Dizziness (Resolved) R42 Hypothyroidism (Chronic) E03.9 Hyperlipidemia (Chronic) E78.5 Carotid artery stenosis I65.29 Depression F32.9 Allergies neomycin [Neomycin] Allergy (Severe, Verified 02/06/20 15:38) Unknown Tetracyclines Allergy (Severe, Verified 02/06/20 15:38) Anaphylaxis Sulfa (Sulfonamide Antibiotics) Allergy (Verified 02/06/20 15:38) Unknown Home Medications: Ambulatory Orders Medication Instructions Recorded biotin 1 mg capsule 1 mg PO DAILY 09/14/19 cholecalciferol (vitamin D3) 25 1,000 unit PO DAILY 09/14/19 mcg (1,000 unit) tablet levothyroxine 88 mcg tablet 88 mcg PO DAILY 09/14/19 sennosides 8.6 mg tablet 8.6 mg PO DAILY PRN 09/14/19 venlafaxine 37.5 mg 37.5 mg PO QHS 09/14/19 capsule,extended release 24 hr amlodipine 5 mg tablet 5 mg PO QHS #90 tab 02/06/20 clopidogrel 75 mg tablet 75 mg PO DAILY #90 tab 02/06/20 hydralazine 25 mg tablet 25 mg PO TID #270 tab 02/06/20 losartan 100 mg tablet 100 mg PO DAILY #90 tab 02/06/20 pioglitazone 15 mg tablet 15 mg PO DAILY 02/06/20 Hydrocodone Bitart/Apap 5-325 1 tab PO Q6H PRN PRN 3 Days #10 tab 02/08/20 [[place] 5MG-325MG] Surgical History: Surgical History (Last Reviewed 02/05/20 @ 09:07 by Adela Soto) History of thyroidectomy (Chronic) E89.0 History of left heart catheterization (Chronic) Onset Date: 12/28/14 Z98.890 normal coronary arteries History of foot surgery Z98.890 History of tonsillectomy and adenoidectomy Z98.890 Surgical History: tonsillectomy, - - Partial thyroidectomy, tonsillectomy, left foot surgery. 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 Paternal History Items: - - Patient notes paternal family history of Alzheimer's disease. Review of Systems Constitutional: Reports: Malaise, Weakness, Fatigue. Denies: Chills, Fever, Weight Change HEENT: Denies: Head Aches, Sinus Congestion, Sinus Drainage Cardiovascular: Denies: Chest Pain, Palpitations Respiratory: Denies: Cough, Shortness of breath at rest, Sputum production Gastrointestinal: Denies: Abdominal Pain, Nausea, Vomiting Genitourinary: Denies: Dysuria Musculoskeletal: Reports: Joint Pain, Joint swelling, Joint Tenderness, Leg Pain Skin: Reports: Skin Changes. Denies: Rash, Wounds Neurological: Denies: Numbness, Tingling, Focal weakness Psychiatric: Reports: Depression. Denies: Anxiety, Homicidal Ideations, Suicidal Ideations Hematologic/ Lymphatic: Reports: Easy Bruising, Easy Bleeding VTE Information - Inpt Only VTE Present on Admission: No VTE Mechan Device Prophylaxis: SCD's VTE Pharm Prophylaxis ordered?: Yes Patient Problems: Active and Suspected Problems (Last Reviewed 02/05/20 @ 09:07 by Adela Soto) Contusion of left knee (Acute) Subjective: Patient seated upright in ED bed, fatigued appearance, severe discomfort with any movement or palpation attempts. Objective: Physical Examination: General: awake, alert, oriented x 3 and cooperative, seated upright in the ED bed in no apparent distress but significant discomfort with any movement attempts or palpation. Skin: normal color, turgor, no icterus, cyanosis except noted left knee significant effusion and ecchymoses. HEENT: AT/NC, EOMI, PERRLA, mildly dry MM, no JVD noted, noted significant bilateral carotid disease history but unable to discern bruit. Lungs: CTA bilaterally, moderate effort, moderate decrease BL bases, no rales, ronchi or wheezing. Heart: Regular rate and rhythm; no gallop, rub audible. Abdomen: soft, NTTP, ND, normal BS, no HSM. Extremities: no cyanosis, clubbing, significant left knee edema, effusion, ecchymoses, unable to bear weight or bend extremity, severe pain with any palpation attempts. Neurological: patient awake, alert, oriented x 3; cognitive function intact; pupils equally reactive to light and accomodation; cranial nerves II-XII grossly normal, moving all 4 extremities however significantly limited left lower extremity given acute presentation, strength accordingly severely global decrease. Psychiatric: affect appears mildly fatigued, uncomfortable, no acute evidence of depressive or anxiety feelings. - Physical Exam Vitals/I&O's: Vital Signs Temp Pulse Resp BP Pulse Ox 98.3 F 83 16 152/65 H 97 02/08/20 18:15 02/08/20 18:15 02/08/20 18:15 02/08/20 18:15 02/08/20 18:15 Weight: 108 lb Body Mass Index (BMI) 19.7 Assessment/Plan All Active Problems (Last Reviewed 02/05/20 @ 09:07 by Adela Soto) Contusion of left knee (Acute) Dizziness (Resolved) Otitis media (Acute) The patient is a 79 y/o F w/ PMHx: HTN, HLD, Depression, BL Carotid stenosis, Hypothyroidism, Diabetes mellitus type II who presents to the [facility] ED on 02/08/20 with history of mechanical fall on day of ED presentation with noted unfortunate fall after catching her foot, landing hard directly on her left knee with severe knee edema, pain, inability to bear weight prompting eventual ED presentation. 1. Intractable left knee pain status post mechanical fall, likely sprained: Failed conservative treatments in the ED with ongoing debility, inability to ambulate well, unsafe for discharge to home with fall possibility, will admit to medical surgical floor, maintain on fall precautions, consult physical and occupational therapies for evaluation as well as case management for discharge planning, continue oral and IV breakthrough pain regimen, given severity of examination will request MRI L knee as some concern for possible tibial plateau injury, maintain NWB status LLE pending imaging. 2. Carotid artery disease: We will continue patient home Plavix, BP regimen, per current list not on statin therapy, will clarify. Noted most recent carotid duplex 09/14/19 with irregular calcific plague at the proximal right internal and external carotid arteries w/ 50-69% stenosis right internal carotid, >50% stenosis right external carotid, irregular plague at the proximal left internal and external carotid arteries, <50% stenosis left internal and external carotid, patent and antegrade vertebrals bilaterally with slight velocity elevation right internal carotid since previous exam of 09/07/18. 3. Diabetes mellitus type II: Hold oral home regimen, ADA diet, accu checks w/ ISS. 4. Hypertension: Continue home regimen including amlodipine, losartan, hydralazine, PRN hydralazine. 5. Hypothyroidism: Continue home synthroid regimen. 6. Depression: We will continue patient home venlafaxine regimen. 7. DVT prophylaxis: SCDs, Lovenox. 8. CODE status: Patient ZEESHAN is her however he does have underlying dementia unsure secondary is her son and living will is currently in place. Discussed CODE status at length including difference between FULL code, DNR-CCA and DNR-CC status. Following discussions about the differences in these status, requested full CODE STATUS. Advanced Care Planning Face to Face Time: 16 minutes. OBSV E&M: 01598 Initial observation care L3 Procedures: 58042 Advncd Care Plan 30 Min
[2020-02-08 21:44] VITALS: BP 160/67; PULSE 69; RESP 16; TEMP 36.6; O2SAT 97
--- NOTE | 2020-02-08 23:13 | MRI_ITS ---
STUDY: MRI LEFT KNEE REASON FOR EXAM: Pain and swelling for one day after a fall. TECHNIQUE: Standardized fat and water weighted pulse sequences were obtained in all 3 orthogonal planes. COMPARISON: Radiographs 02/08/2020. FINDINGS: There is mild intrasubstance myxoid degeneration of the posterior horn of the medial meniscus without discrete medial meniscal tear. Normal hyaline cartilage of the medial femorotibial compartment. There is a cyst in the posterior aspect of the medial femoral condyle measuring 1.3 cm in length with mild adjacent bone edema (T2 coronal images 11-13). Normal medial collateral ligamentous complex (MCL). Normal distal semimembranosus, gracilis and semitendinosus tendons. There is a horizontal tear of the free margin of the posterior horn of the lateral meniscus (proton density coronal image 9; proton density sagittal image 33) and a complex tear of the anterior horn of the lateral meniscus (proton density sagittal images 31-33). Normal hyaline cartilage of the lateral femorotibial compartment. Normal lateral femoral condyle and tibial plateau. Normal proximal tibiofibular articulation. Normal lateral collateral (fibular) ligament. Normal popliteus tendon. Normal biceps femoris tendon. Normal anterior cruciate ligament (ACL). Normal posterior cruciate ligament (PCL). Normal congruent patellofemoral articulation. There is a subchondral lesion of the patella at the median ridge measuring 0.9 cm in length (proton density sagittal image 24) with thinning of the overlying articular cartilage (T2 sagittal image 14). Normal medial and lateral patellar retinaculum. Normal visualized quadriceps tendon. Normal patellar tendon. Normal Hoffa''s fat pad. There is a minimal volume of fluid in the knee joint. There is a hematoma in the anterior subcutis adipose space (T2 sagittal images 5-19) measuring 8.7 cm in length. There is a strain of the distal vastus medialis muscle (T2 sagittal image 5). There is edema in the subcutis adipose space. The otherwise visualized osseous structures are unremarkable. MRI/Lower Ext Joint Only (Routine) IMPRESSION: Hematoma in the anterior subcutis adipose space. Lateral meniscal tear. Subchondral lesion of the patella. Strain of the vastus medialis muscle. Cyst in the posterior aspect of the medial femoral condyle. Electronically Signed: Alcides Martínez MD at 14:33 EDT Tel , Service support ,
[2020-02-08 23:20] VITALS: BP 169/70; PULSE 80; RESP 18; TEMP 37.2; O2SAT 96
[2020-02-08 23:21] VITALS: BMI 18.9
[2020-02-08 23:32] VITALS: BMI 18.9
[2020-02-08 23:35] LABS: Absolute Lymphocyte Count 1.55 X10^3/uL (0.83-4.51); Absolute Neutrophil Count 2.7 X10^3/uL (2.0-7.7); Basophil# 0.05 X10^3/uL; Eosinophils% 3.8 % (0-5); Hematocrit 34.6 % (37-47); Hemoglobin 11.5 g/dL (12.0-15.0); Lymphocyte # 1.55 X10^3/ul (4.0); Lymphocyte % 29.7 % (19-41); Mean Corp Hgb Conc 33.2 g/dL (32-36); Mean Corpuscular Hgb 28.5 pg (27.0-32.0); Mean Corpuscular Volume 85.9 fL (81-99); Mean Platelet Vol. 9.4 fl (6.2-12.0); Monocyte# 0.76 X10^3/uL; Monocyte% 14.6 % (0-10); NRBC Flagged by Analyzer 0 % (0-5); Neutrophil # 2.65 X10^3/uL (2.7-7.7); Neutrophil % 50.7 % (47-70); Platelet Count 168 K/mm3 (150-450); RBC Distribution Width CV 13.1 % (11.6-14.6); RBC Distribution Width SD 40.7 fl (35.1-43.9); Red Blood Count 4.03 M/mm3 (4.2-5.4); White Blood Count 5.2 K/mm3 (4.4-11.0)
[2020-02-09] VITALS (10 sets, daily range): BP systolic 124–166; BP diastolic 45–72; PULSE 72–80; RESP 16–18; TEMP 36.9–37.2; O2SAT 94–97
[2020-02-09] LABS: Anion Gap 6 (5-15); BUN 18 mg/dL (7-18); BUN/Creat Ratio 33.3 RATIO (10-20); Calcium,Total 9.2 mg/dL (8.5-10.1); Chloride 103 mmol/L (98-107); Creatinine, Serum 0.54 mg/dL (0.55-1.02); EST Glomerular Filtration Rate 115 mL/min (>60); Est Glom Filt Rate - Afr Amer 139 mL/min (>60); Estimated Creatinine Clearance 33.22 ml/min; Glucose 124 mg/dL (74-106); Potassium 3.7 mmol/L (3.5-5.1); Sodium Level 136 mmol/L (136-145)
[2020-02-09] MEDS: oxyCODONE 5 MG Tablet PO (00:13)
[2020-02-09] MEDS: Venlafaxine XR 37.5 MG Capsule PO ×2 (00:35→21:10)
[2020-02-09] MEDS: hydrALAZINE 50 MG Tablet PO ×4 (00:35→21:10)
[2020-02-09] MEDS: Famotidine 20 MG Tablet PO ×2 (00:35→21:11)
[2020-02-09] MEDS: amLODIPine 5 MG Tablet PO ×2 (00:36→21:10)
[2020-02-09 06:45] LABS: Bedside Glucose 105 mg/dL (70-110)
--- NOTE | 2020-02-09 10:30 | CASEMGMT ---
RN MANOLO Face to Face with patient for initial transition planning/care coordination assessment. RN CM introduced self and role at [facility]. Patient lying in bed, alert and oriented. Patient willing to participate in assessment and is able to answer all questions appropriately. Care providers, pharmacy, and demographics verified. Patient wishes to discharge home, denies need for home health at this time, will monitor need for HHC. Patient states she has no further needs or concerns at this time. CM to follow for discharge planning needs that may arise. 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 Patient independent and caring for . Son helping with care. 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 Transportation: self/son/friends DME/HHC: Patient states she has walker, cane, and raised toilet. Patient is currently non-weightbearing pending MRI. Will monitor therapy. Disposition Plan: Patient to discharge home pending therapy, will monitor for HHC. Jess LARSEN, RN, CM
[2020-02-09] MEDS: Enoxaparin 40 MG/0.4 ML Syringe SC (11:05)
[2020-02-09] MEDS: Losartan Potassium 100 MG Tablet PO (11:05)
[2020-02-09 12:01] LABS: Bedside Glucose 193 mg/dL (70-110)
--- NOTE | 2020-02-09 13:07 | NURSING ---
off unit to MRI. has not eaten lunch yet. will recheck blood sugar when she arrives back to floor after MRI.
--- NOTE | 2020-02-09 14:09 | PN_ITS ---
<Pat Santiago - Last Filed: 02/09/20 15:55> Patient Problems: Active and Suspected Problems (Last Reviewed 02/05/20 @ 09:07 by Adela Soto) Contusion of left knee (Acute) Subjective: Patient seen and examined. Resting in chair with feet elevated. Reports she is unable to bear weight to left lower extremity due to severe pain. Patient has pain significant pain with minimal palpation left knee. Awaiting MRI for further evaluation. - Physical Exam Vitals/I&O's: Vital Signs Temp Pulse Resp BP Pulse Ox 98.9 F 72 18 124/45 H 96 02/09/20 10:56 02/09/20 10:56 02/09/20 10:56 02/09/20 10:56 02/09/20 10:56 Oxygen Delivery Method Room Air Weight: 105 lb 2.568 oz Body Mass Index (BMI) 18.9 Intake and Output for Last 24 Hours 02/07/20 02/08/20 02/09/20 23:59 23:59 23:59 Intake Total 250 / 250 Output Total 1150 / 1150 Balance -900 / -900 General: Alert, Oriented x3, Cooperative HEENT: Atraumatic, PERRLA, EOMI, Normocephalic Neck: Supple, No JVD, Negative Carotid Bruits Lungs: Clear to auscultation, Normal air movement Cardiovascular: Regular rate, Regular Rhythm, Normal S1, Normal S2, No murmurs Abdomen: Bowel Sounds Present, Soft, Non Tender, Non-Distended Extremities: No clubbing, No cyanosis, Capillary Refill Less than 3 Seconds, Edema - Left knee Skin: No rashes, No breakdown Musculoskeletal: Tenderness - Left knee Neurological: Cranial nerves II-XII grossly intact, Neuro grossly intact Psych/Mental Status: Normal Affect, Appropriate Laboratory Results 02/08/20 23:26: WBC 5.2, RBC 4.03 L, Hgb 11.5 L, Hct 34.6 L, MCV 85.9, MCH 28.5, MCHC 33.2, RDW Std Deviation 40.7, RDW Coeff of Obed 13.1, Plt Count 168, MPV 9.4, Immature Gran % (Auto) 0.200, Neut % (Auto) 50.7, Lymph % (Auto) 29.7, [place] % (Auto) 14.6 H, Eos % (Auto) 3.8, Baso % (Auto) 1.0, Absolute Neuts (auto) 2.7, Absolute Lymphs (auto) 1.55, Nucleated RBC % 0 02/08/20 23:26: Sodium 136, Potassium 3.7, Chloride 103, Carbon Dioxide 27.0, Anion Gap 6, BUN 18, Creatinine 0.54 L, Estim Creat Clear Calc 33.22, Est GFR (MDRD) Af Amer 139, Est GFR (MDRD) Non-Af 115, BUN/Creatinine Ratio 33.3 H, Glucose 124 H, Calcium 9.2 02/09/20 06:35: POC Glucose 105 02/09/20 11:03: POC Glucose 193 H Current Medications Acetaminophen (Tylenol) 650 mg PO Q6H PRN PRN PRN Reason: Pain Score 1-10/Temp > 100.7 F Al Hydroxide/Mg Hydroxide (Mylanta Ii) 30 ml PO Q6H PRN PRN PRN Reason: Gastric Burning Albuterol Sulfate (Ventolin Aerosols) 2.5 mg INHALATION Q2H PRN PRN PRN Reason: Shortness of Breath/Wheezing Amlodipine Besylate (Norvasc) 5 mg PO QHS [facility] Last Admin: 02/09/20 00:36 Dose: 5 mg Documented by: Clopidogrel Bisulfate (Plavix) 75 mg PO QODAY [facility] Enoxaparin Sodium (Lovenox) 40 mg SC DAILY [facility] Last Admin: 02/09/20 11:05 Dose: 40 mg Documented by: Famotidine (Pepcid) 20 mg PO BID [facility] Last Admin: 02/09/20 10:58 Dose: Not Given Documented by: Glucagon () 1 mg IM .X1 PRN PRN Reason: Hypoglycemia Guaifenesin (Robitussin) 20 ml PO Q4H PRN PRN PRN Reason: COUGH Hydralazine HCl (Apresoline) 50 mg PO TID [facility] Last Admin: 02/09/20 05:29 Dose: 50 mg Documented by: Dextrose (Dextrose 10%-Water) 250 mls @ 999 mls/hr IV .Q16M PRN; Protocol PRN Reason: HYPOGLYCEMIA Ibuprofen (Motrin) 400 mg PO Q4H PRN PRN PRN Reason: Pain Score 1-10/Temp > 100.7 F Insulin Human Lispro (Humalog Kwikpen (Bkc)) 0 unit SC ACHS [facility]; Protocol Last Admin: 02/09/20 06:36 Dose: Not Given Documented by: Levothyroxine Sodium (Synthroid) 88 mcg PO DAILY [facility] Losartan Potassium (Cozaar) 100 mg PO DAILY [facility] Last Admin: 02/09/20 11:05 Dose: 100 mg Documented by: Magnesium Hydroxide (Milk Of Magnesia) 30 ml PO DAILY PRN PRN PRN Reason: Constipation Melatonin (Melatonin) 3 mg PO QHS PRN PRN PRN Reason: INSOMNIA Morphine Sulfate () 2 mg IV Q3H PRN PRN PRN Reason: Pain Score 6-10/10 Ondansetron HCl (Zofran) 4 mg IV Q8H PRN PRN PRN Reason: NAUSEA/VOMITING Oxycodone HCl (Oxyir) 5 mg PO Q4H PRN PRN PRN Reason: Pain Score 4-5/10 Last Admin: 02/09/20 00:13 Dose: 5 mg Documented by: Prochlorperazine Edisylate (Compazine Iv) 5 mg IV Q4H PRN PRN PRN Reason: Breakthrough nausea/vomiting Psyllium Hydrophilic Mucilloid (Metamucil) 1 packet PO DAILY PRN PRN PRN Reason: Constipation Senna/Docusate Sodium (Senokot-S, Malissa-Colace) 2 tablet PO BID PRN PRN PRN Reason: Constipation Sodium Chloride () 10 - 40 ml IV UD PRN PRN Reason: SALINE FLUSH Throat Lozenges (Cepacol Sore Throat Lozenge) 1 lozenge MUCOUS MEM Q2H PRN PRN PRN Reason: SORE THROAT Venlafaxine HCl (Effexor Xr) 37.5 mg PO QHS [facility] Last Admin: 02/09/20 00:35 Dose: 37.5 mg Documented by: Medical Necessity - Tobacco Use Smoking Status: Never smoker Tobacco Use: Non-smoker Assessment/Plan All Active Problems (Last Reviewed 02/05/20 @ 09:07 by Adela Soto) Contusion of left knee (Acute) Dizziness (Resolved) Otitis media (Acute) 1. Intractable left knee pain status post mechanical fall, prior to admission- patient unable to ambulate due to left lower extremity pain. Plain x-ray shows marked soft tissue swelling without acute fracture or dislocation. MRI of knee completed, report pending. Continue ice, elevation. PT/OT. PRN pain regimen. If MRI is remarkable, will consult orthopedic medicine. 2. CAD-continue Plavix, BP regimen. Not on statin. 3. Type 2 diabetes mellitus-hold oral regimen. Accu-Cheks with sliding scale insulin. 4. Hypertension-stable, continue amlodipine, losartan, hydralazine. 5. Hypothyroidism-continue home Synthroid regimen. 6. Depression-continue venlafaxine regimen. DVT prophylaxis-Lovenox, SCDs This patient was seen by RADHA Montano under the supervision of Dr. Darby. <Anthony Darby F - Last Filed: 02/09/20 19:35> - Physical Exam Vitals/I&O's: Vital Signs Temp Pulse Resp BP Pulse Ox 98.4 F 75 18 166/66 H 96 02/09/20 14:33 02/09/20 14:44 02/09/20 14:33 02/09/20 14:33 02/09/20 14:33 Oxygen Delivery Method Room Air Weight: 105 lb 2.568 oz Body Mass Index (BMI) 18.9 Intake and Output for Last 24 Hours 02/07/20 02/08/20 02/09/20 23:59 23:59 23:59 Intake Total 650 / 650 Output Total 1650 / 1650 Balance -1000 / -1000 Laboratory Results 02/08/20 23:26: WBC 5.2, RBC 4.03 L, Hgb 11.5 L, Hct 34.6 L, MCV 85.9, MCH 28.5, MCHC 33.2, RDW Std Deviation 40.7, RDW Coeff of Obed 13.1, Plt Count 168, MPV 9.4, Immature Gran % (Auto) 0.200, Neut % (Auto) 50.7, Lymph % (Auto) 29.7, [place] % (Auto) 14.6 H, Eos % (Auto) 3.8, Baso % (Auto) 1.0, Absolute Neuts (auto) 2.7, Absolute Lymphs (auto) 1.55, Nucleated RBC % 0 02/08/20 23:26: Sodium 136, Potassium 3.7, Chloride 103, Carbon Dioxide 27.0, Anion Gap 6, BUN 18, Creatinine 0.54 L, Estim Creat Clear Calc 33.22, Est GFR (MDRD) Af Amer 139, Est GFR (MDRD) Non-Af 115, BUN/Creatinine Ratio 33.3 H, Glucose 124 H, Calcium 9.2 02/09/20 06:35: POC Glucose 105 02/09/20 11:03: POC Glucose 193 H 02/09/20 14:31: POC Glucose 155 H 02/09/20 18:00: POC Glucose 285 H Current Medications Acetaminophen (Tylenol) 1,000 mg PO Q8 [facility] Al Hydroxide/Mg Hydroxide (Mylanta Ii) 30 ml PO Q6H PRN PRN PRN Reason: Gastric Burning Albuterol Sulfate (Ventolin Aerosols) 2.5 mg INHALATION Q2H PRN PRN PRN Reason: Shortness of Breath/Wheezing Amlodipine Besylate (Norvasc) 5 mg PO QHS [facility] Last Admin: 02/09/20 00:36 Dose: 5 mg Documented by: Clopidogrel Bisulfate (Plavix) 75 mg PO QODAY [facility] Enoxaparin Sodium (Lovenox) 40 mg SC DAILY [facility] Last Admin: 02/09/20 11:05 Dose: 40 mg Documented by: Famotidine (Pepcid) 20 mg PO BID [facility] Last Admin: 02/09/20 10:58 Dose: Not Given Documented by: Glucagon () 1 mg IM .X1 PRN PRN Reason: Hypoglycemia Guaifenesin (Robitussin) 20 ml PO Q4H PRN PRN PRN Reason: COUGH Hydralazine HCl (Apresoline) 50 mg PO TID [facility] Last Admin: 02/09/20 14:44 Dose: 50 mg Documented by: Dextrose (Dextrose 10%-Water) 250 mls @ 999 mls/hr IV .Q16M PRN; Protocol PRN Reason: HYPOGLYCEMIA Ibuprofen (Motrin) 400 mg PO Q4H PRN PRN PRN Reason: Pain Score 1-10/Temp > 100.7 F Insulin Human Lispro (Humalog Kwikpen (Bkc)) 0 unit SC [facility]; Protocol Last Admin: 02/09/20 18:02 Dose: 4 u Documented by: Levothyroxine Sodium (Synthroid) 88 mcg PO DAILY [facility] Losartan Potassium (Cozaar) 100 mg PO DAILY [facility] Last Admin: 02/09/20 11:05 Dose: 100 mg Documented by: Magnesium Hydroxide (Milk Of Magnesia) 30 ml PO DAILY PRN PRN PRN Reason: Constipation Melatonin (Melatonin) 3 mg PO QHS PRN PRN PRN Reason: INSOMNIA Morphine Sulfate () 2 mg IV Q3H PRN PRN PRN Reason: Pain Score 6-10/10 Ondansetron HCl (Zofran) 4 mg IV Q8H PRN PRN PRN Reason: NAUSEA/VOMITING Oxycodone HCl (Oxyir) 5 mg PO Q4H PRN PRN PRN Reason: Pain Score 4-5/10 Last Admin: 02/09/20 00:13 Dose: 5 mg Documented by: Prednisone () 40 mg PO DAILY@0800 [facility] Stop: 02/14/20 08:01 Prochlorperazine Edisylate (Compazine Iv) 5 mg IV Q4H PRN PRN PRN Reason: Breakthrough nausea/vomiting Psyllium Hydrophilic Mucilloid (Metamucil) 1 packet PO DAILY PRN PRN PRN Reason: Constipation Senna/Docusate Sodium (Senokot-S, Malissa-Colace) 2 tablet PO BID PRN PRN PRN Reason: Constipation Sodium Chloride () 10 - 40 ml IV UD PRN PRN Reason: SALINE FLUSH Throat Lozenges (Cepacol Sore Throat Lozenge) 1 lozenge MUCOUS MEM Q2H PRN PRN PRN Reason: SORE THROAT Venlafaxine HCl (Effexor Xr) 37.5 mg PO QHS [facility] Last Admin: 02/09/20 00:35 Dose: 37.5 mg Documented by: Addendum: Dr. Darby I personally examined the patient and reviewed the chart. I agree with the above. 79-year-old female with a history of carotid stenosis, hypertension, hyperlipidemia, and diabetes presents after a fall at home. She states she landed on her left knee and has had significant knee pain and edema since then. She had an MRI today that showed a lateral meniscal tear, and orthopedic surgery was consulted. Initially she was started on prednisone pending their e valuation. OBSV E&M: [id number] Subsequent observation care L2
[2020-02-09 14:40] LABS: Bedside Glucose 155 mg/dL (70-110)
[2020-02-09] MEDS: Insulin Lispro 100 UNIT/ML INSULN.PEN SC ×3 (14:44→21:11)
--- NOTE | 2020-02-09 16:02 | CASEMGMT ---
AMBER CM in to discuss RODRIGUEZ form with patient. RN MANOLO explained RODRIGUEZ form and patient voiced understanding. Patient signed form and filed in chart. copy provided to patient.
[2020-02-09] MEDS: predniSONE 20 MG Tablet 40 MG PO (16:49)
[2020-02-09 18:10] LABS: Bedside Glucose 285 mg/dL (70-110)
[2020-02-09] MEDS: Magnesium Hydroxide 30 ML UDC PO (21:24)
[2020-02-09] MEDS: Acetaminophen 500 MG Tablet 1000 MG PO (21:24)
[2020-02-09 22:26] LABS: Bedside Glucose 191 mg/dL (70-110)
[2020-02-10] VITALS (8 sets, daily range): BP systolic 122–150; BP diastolic 52–80; PULSE 72–94; RESP 18–20; TEMP 36.5–37.1; O2SAT 94–100
[2020-02-10] MEDS: hydrALAZINE 50 MG Tablet PO ×3 (06:40→22:04)
[2020-02-10] MEDS: Acetaminophen 500 MG Tablet 1000 MG PO ×3 (06:43→22:04)
[2020-02-10] MEDS: Levothyroxine 88 MCG Tablet PO (06:43)
[2020-02-10] MEDS: Insulin Lispro 100 UNIT/ML INSULN.PEN SC ×4 (06:49→22:05)
[2020-02-10 07:11] LABS: Hematocrit 36.5 % (37-47); Mean Corp Hgb Conc 32.9 g/dL (32-36); Mean Corpuscular Hgb 28.4 pg (27.0-32.0); Mean Corpuscular Volume 86.3 fL (81-99); Mean Platelet Vol. 10.1 fl (6.2-12.0); Platelet Count 194 K/mm3 (150-450); RBC Distribution Width CV 13.1 % (11.6-14.6); RBC Distribution Width SD 40.5 fl (35.1-43.9); Red Blood Count 4.23 M/mm3 (4.2-5.4)
[2020-02-10] MEDS: predniSONE 20 MG Tablet 40 MG PO (10:34)
[2020-02-10] MEDS: Famotidine 20 MG Tablet PO ×2 (10:35→22:04)
[2020-02-10] MEDS: Losartan Potassium 100 MG Tablet PO (10:35)
[2020-02-10] MEDS: Enoxaparin 40 MG/0.4 ML Syringe SC (10:35)
[2020-02-10] MEDS: Clopidogrel Bisulfate 75 MG Tablet PO (10:36)
--- NOTE | 2020-02-10 11:28 | CON.PCM_ITS ---
Reason for Consult Date of Consultation: 02/10/20 Reason for Consultation: Left knee pain, requested by Pat Santiago History of Present Illness: The patient is a 79 year old F presents today with left knee pain and medial knee swelling. Patient reports a history of previous corticosteroid injections in that knee with my former partner Dr. Ledezma. Patient is on Plavix, on discussions with the medical team they are still determining exactly why. 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 She was rushing to the hospital to bring him home on Wednesday when she had a mechanical fall tripping on the carpet. Patient notes that after this fall she was able to come to the hospital and get her . After she got home she noticed swelling over her knee. She was brought to the hospital with significant pain. She has pain with flexion of the knee. She has pain when they get her up to walk. She cannot determine if the pain is with weightbearing or motion of the knee. Pain is located over the anterior medial knee where there is swelling and ecchymosis associated with this. She does report some chronic knee pain. Pain is a 8 out of 10 with bending. Minimal pain when the knee is elevated and supported in extension. 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 carotid bruits (Chronic) History of thyroidectomy (Chronic) History of left heart catheterization (Chronic 12/28/14) normal coronary arteries Hypothyroidism (Chronic) Hyperlipidemia (Chronic) Medical History: Medical History (Last Reviewed 02/05/20 @ 09:07 by Adela Soto) Carotid stenosis, bilateral (Chronic) I65.23 Essential hypertension (Chronic) I10 Bilateral carotid bruits (Chronic) R09.89 Dizziness (Resolved) R42 Hypothyroidism (Chronic) E03.9 Hyperlipidemia (Chronic) E78.5 Carotid artery stenosis I65.29 Depression F32.9 Allergies neomycin [Neomycin] Allergy (Severe, Verified 02/06/20 15:38) Unknown Tetracyclines Allergy (Severe, Verified 02/06/20 15:38) Anaphylaxis Sulfa (Sulfonamide Antibiotics) Allergy (Verified 02/06/20 15:38) Unknown Home Medications: Ambulatory Orders Medication Instructions Recorded biotin 1 mg capsule 1 mg PO DAILY 09/14/19 cholecalciferol (vitamin D3) 25 1,000 unit PO DAILY 09/14/19 mcg (1,000 unit) tablet levothyroxine 88 mcg tablet 88 mcg PO DAILY 09/14/19 sennosides 8.6 mg tablet 8.6 mg PO DAILY PRN 09/14/19 venlafaxine 37.5 mg 37.5 mg PO QHS 09/14/19 capsule,extended release 24 hr amlodipine 5 mg tablet 5 mg PO QHS #90 tab 02/06/20 losartan 100 mg tablet 100 mg PO DAILY #90 tab 02/06/20 pioglitazone 15 mg tablet 15 mg PO DAILY 02/06/20 Clopidogrel Bisulfate [Clopidogrel] 75 mg PO QODAY 02/08/20 hydrALAZINE [Apresoline] 50 mg PO TID 02/08/20 Surgical History: Surgical History (Last Reviewed 02/05/20 @ 09:07 by Adela Soto) History of thyroidectomy (Chronic) E89.0 History of left heart catheterization (Chronic) Onset Date: 12/28/14 Z98.890 normal coronary arteries History of foot surgery Z98.890 History of tonsillectomy and adenoidectomy Z98.890 Surgical History: tonsillectomy, - - Partial thyroidectomy, tonsillectomy, left foot surgery. 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 Paternal History Items: - - Patient notes paternal family history of Alzheimer's disease. Review of Systems Constitutional: Denies: Chills, Fever, Weight Change HEENT: Denies: Head Aches, Sinus Congestion, Sinus Drainage Cardiovascular: Denies: Chest Pain, Palpitations Respiratory: Denies: Cough, Shortness of breath at rest, Sputum production Gastrointestinal: Denies: Abdominal Pain, Nausea, Vomiting Genitourinary: Denies: Dysuria Musculoskeletal: Reports: Joint Pain - Left knee, Joint Tenderness Skin: Reports: - - Medial knee ecchymosis. Denies: Rash, Wounds Neurological: Denies: Numbness, Tingling, Focal weakness Psychiatric: Denies: Anxiety, Depression, Homicidal Ideations, Suicidal Ideations Hematologic/ Lymphatic: Denies: Easy Bruising, Easy Bleeding Patient Problems: Active and Suspected Problems (Last Reviewed 02/05/20 @ 09:07 by Adela Soto) Contusion of left knee (Acute) Objective: MRI without contrast was reviewed with the patient. This shows a hematoma over the anteromedial knee and quadricep strain. There is also an incidental finding of lateral meniscus tear and degenerative changes of the lateral compartment as well as medial distal femoral condyle cyst at the epicondyle. Nonweightbearing x-rays show valgus alignment with medial joint space narrowing. - Physical Exam Vitals/I&O's: Vital Signs Temp Pulse Resp BP Pulse Ox 97.7 F L 79 18 125/65 H 100 02/10/20 08:40 02/10/20 08:40 02/10/20 08:40 02/10/20 08:40 02/10/20 08:40 Oxygen Delivery Method Room Air Weight: 105 lb 2.568 oz Body Mass Index (BMI) 18.9 Intake and Output for Last 24 Hours 02/08/20 02/09/20 02/10/20 23:59 23:59 23:59 Intake Total 890 / 890 500 / 500 Output Total 1750 / 1750 350 / 350 Balance -860 / -860 150 / 150 General: Alert, Oriented x3, Cooperative Extremities: - - Left lower extremity: Patient has ecchymosis and swelling over the anterior medial knee just proximal to the patella. This area is exquisitely tender to palpate. There is underlying fluctuance. Minimal tenderness palpation at medial and lateral joint lines. Minimal joint effusion. Patient has pain over the swollen and ecchymotic area with knee flexion. She allows me to flex the knee to 70 degrees. She obtains full extension. She does not report significant pain with axial loading of the knee joint in full extension. Sensations intact to light touch saphenous, sural, superficial peroneal, deep peroneal, and tibial distributions Motors intact EHL, DF, PF calves are soft and supple Laboratory Results 02/09/20 11:03: POC Glucose 193 H 02/09/20 14:31: POC Glucose 155 H 02/09/20 18:00: POC Glucose 285 H 02/09/20 21:07: POC Glucose 191 H 02/10/20 06:48: WBC 7.0, RBC 4.23, Hgb 12.0, Hct 36.5 L, MCV 86.3, MCH 28.4, MCHC 32.9, RDW Std Deviation 40.5, RDW Coeff of Obed 13.1, Plt Count 194, MPV 10.1 Current Medications Acetaminophen (Tylenol) 1,000 mg PO Q8 [facility] Last Admin: 02/10/20 06:43 Dose: 1,000 mg Documented by: Al Hydroxide/Mg Hydroxide (Mylanta Ii) 30 ml PO Q6H PRN PRN PRN Reason: Gastric Burning Albuterol Sulfate (Ventolin Aerosols) 2.5 mg INHALATION Q2H PRN PRN PRN Reason: Shortness of Breath/Wheezing Amlodipine Besylate (Norvasc) 5 mg PO QHS [facility] Last Admin: 02/09/20 21:10 Dose: 5 mg Documented by: Clopidogrel Bisulfate (Plavix) 75 mg PO QODAY [facility] Last Admin: 02/10/20 10:36 Dose: 75 mg Documented by: Enoxaparin Sodium (Lovenox) 40 mg SC DAILY [facility] Last Admin: 02/10/20 10:35 Dose: 40 mg Documented by: Famotidine (Pepcid) 20 mg PO BID [facility] Last Admin: 02/10/20 10:35 Dose: 20 mg Documented by: Glucagon () 1 mg IM .X1 PRN PRN Reason: Hypoglycemia Guaifenesin (Robitussin) 20 ml PO Q4H PRN PRN PRN Reason: COUGH Hydralazine HCl (Apresoline) 50 mg PO TID [facility] Last Admin: 02/10/20 06:40 Dose: 50 mg Documented by: Dextrose (Dextrose 10%-Water) 250 mls @ 999 mls/hr IV .Q16M PRN; Protocol PRN Reason: HYPOGLYCEMIA Ibuprofen (Motrin) 400 mg PO Q4H PRN PRN PRN Reason: Pain Score 1-10/Temp > 100.7 F Insulin Human Lispro (Humalog Kwikpen (Bkc)) 0 unit SC ACHS [facility]; Protocol Last Admin: 02/10/20 06:49 Dose: 1 u Documented by: Levothyroxine Sodium (Synthroid) 88 mcg PO DAILY@0600 [facility] Last Admin: 02/10/20 06:43 Dose: 88 mcg Documented by: Losartan Potassium (Cozaar) 100 mg PO DAILY [facility] Last Admin: 02/10/20 10:35 Dose: 100 mg Documented by: Magnesium Hydroxide (Milk Of Magnesia) 30 ml PO DAILY PRN PRN PRN Reason: Constipation Last Admin: 02/09/20 21:24 Dose: 30 ml Documented by: Melatonin (Melatonin) 3 mg PO QHS PRN PRN PRN Reason: INSOMNIA Morphine Sulfate () 2 mg IV Q3H PRN PRN PRN Reason: Pain Score 6-10/10 Ondansetron HCl (Zofran) 4 mg IV Q8H PRN PRN PRN Reason: NAUSEA/VOMITING Oxycodone HCl (Oxyir) 5 mg PO Q4H PRN PRN PRN Reason: Pain Score 4-5/10 Last Admin: 02/09/20 00:13 Dose: 5 mg Documented by: Prednisone () 40 mg PO DAILY@0800 [facility] Stop: 02/14/20 08:01 Last Admin: 02/10/20 10:34 Dose: 40 mg Documented by: Prochlorperazine Edisylate (Compazine Iv) 5 mg IV Q4H PRN PRN PRN Reason: Breakthrough nausea/vomiting Psyllium Hydrophilic Mucilloid (Metamucil) 1 packet PO DAILY PRN PRN PRN Reason: Constipation Senna/Docusate Sodium (Senokot-S, Malissa-Colace) 2 tablet PO BID PRN PRN PRN Reason: Constipation Sodium Chloride () 10 - 40 ml IV UD PRN PRN Reason: SALINE FLUSH Throat Lozenges (Cepacol Sore Throat Lozenge) 1 lozenge MUCOUS MEM Q2H PRN PRN PRN Reason: SORE THROAT Venlafaxine HCl (Effexor Xr) 37.5 mg PO QHS [facility] Last Admin: 02/09/20 21:10 Dose: 37.5 mg Documented by: Assessment/Plan All Active Problems (Last Reviewed 02/05/20 @ 09:07 by Adela Soto) Contusion of left knee (Acute) Dizziness (Resolved) Otitis media (Acute) Left knee pain quadricep strain and associated hematoma. 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 Natural history of the disease process and treatment options were discussed the patient. At this time I explained to patient that the meniscus tear and arthrosis of the knee are unlikely the cause of her immediate pain. She has a hematoma over the anterior medial knee and quadricep strain which are exacerbated with flexion of the knee. I explained to the patient the importance of maintaining range of motion to avoid contractures and loss of motion of the knee. At this point she has been on restricted weightbearing. However, we need to advance her to weightbearing as tolerated. I explained to the patient that she will be sore but she is allowed to put weight on the knee. While physical therapy work for the patient she is anxious to return home if she is stable and can pass physical therapy this can likely be managed as an outpatient. I would like to see her all in the office again in 2 weeks. In addition of this that she can discontinue her Plavix for period of time appropriate from the medicine service she will likely decrease the chance of progressing hematoma. At this time the hematoma appears to be stable without progressive swelling. It is unlikely aspiration or surgical debridement offers greater benefit than risk. She was instructed to take Tylenol on a scheduled basis to help with pain, she will use heat as appropriate. I explained the patient that sometimes ice can be better but hematomas usually respond better to heat. She was instructed on appropriate elevation. I do not want a pillow behind her knee but she should support her calf and ankle. Should be given home exercise program to maintain range of motion at home. She would likely benefit from outpatient physical therapy once she is discharged home in order to maintain mobility, improve strength and maintain range of motion. In light of her hematoma I would like to avoid NSAIDs I think she may benefit from a short course of prednisone/Medrol Dosepak upon discharge to help with inflammation. [facility] Office:
[2020-02-10 11:50] LABS: Bedside Glucose 278 mg/dL (70-110)
--- NOTE | 2020-02-10 11:59 | PCM.DC ---
- Discharge Diagnoses Current Active Problems: Current Active and Chronic Problems (Last Reviewed 02/05/20 @ 09:07 by Adela Soto) Contusion of left knee (Acute) You will use the following diet at home:: No restrictions Discharge Activity: - - Weightbearing as tolerated left lower extremity Call your doctor if you observe: Shortness of breath, Dizziness, Fainting spells, Chest pain, Uncontrolled pain Instructions: CONTUSION, Lower Extremity Additional Instructions: Recommend discontinuing Plavix for 2 weeks. May resume pending follow-up with orthopedic medicine. If knee swelling and pain is improved, may resume Plavix at that time. Continue as needed Tylenol for pain. Apply heat to affected area 20 to 30 minutes 3 times daily. Allergies/Adverse Reactions: Allergies neomycin [Neomycin] Allergy (Severe, Verified 02/06/20 15:38) Unknown Tetracyclines Allergy (Severe, Verified 02/06/20 15:38) Anaphylaxis Sulfa (Sulfonamide Antibiotics) Allergy (Verified 02/06/20 15:38) Unknown Medications to take at Discharge biotin 1 mg capsule 1 mg PO DAILY 09/14/19 cholecalciferol (vitamin D3) 25 mcg (1,000 unit) tablet 1,000 unit PO DAILY 09/14/19 levothyroxine 88 mcg tablet 88 mcg PO DAILY 09/14/19 sennosides 8.6 mg tablet 8.6 mg PO DAILY PRN 09/14/19 venlafaxine 37.5 mg capsule,extended release 24 hr 37.5 mg PO QHS 09/14/19 amlodipine 5 mg tablet 5 mg PO QHS #90 tab 02/06/20 losartan 100 mg tablet 100 mg PO DAILY #90 tab 02/06/20 pioglitazone 15 mg tablet 15 mg PO DAILY 02/06/20 Clopidogrel Bisulfate [Clopidogrel] 75 mg PO QODAY 02/08/20 hydrALAZINE [Apresoline] 50 mg PO TID 02/08/20 MethylPREDNISolone DosePak [Medrol DosePak] 4 mg PO UD #1 box 02/10/20 The following prescriptions were given: MethylPREDNISolone DosePak [Medrol DosePak] 4 mg PO UD #1 box Transmission Status: Pending to [facility] Primary Care Physician: Karla Bhagat MD [Primary Care Provider] - 1 Week if not improving Please follow up with your Primary Care Physician in: 1 Week Test Results: Test results from this visit will be discussed in further detail at your follow-up appointment, if applicable. Please Follow Up With: Magdiel Kline MD When: 2 Weeks Proposed Discharge Date: 02/10/20
--- NOTE | 2020-02-10 12:14 | DS.PCM_ITS ---
<Pat Santiago - Last Filed: 02/12/20 12:43> Discharge Date and Diagnosis Date of Admission: 02/08/20 Date of Discharge: 02/10/20 - Primary Discharge Diagnosis Active and Suspected Problems (Last Reviewed 02/05/20 @ 09:07 by Adela Soto) 1. Intractable left knee pain secondary to quadricep strain and hematoma, incidental finding lateral meniscus tear 2. Carotid artery disease 3. Type 2 diabetes mellitus 4. Hypertension 5. Hypothyroidism 6. 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 Lateral meniscal tear. Subchondral lesion of the patella. Strain of the vastus medialis muscle. Cyst in the posterior aspect of the medial femoral condyle. Electronically Signed: Alcides Martínez MD at 14:33 EDT Tel , Service support , Dr. Kline- Orthopedic Surgery Operations: None Procedures: None Summary of Care Provided: The patient is a 79 year old F admitted 02/08/2020 due to fall with left knee pain and debility. 1. Intractable left knee pain secondary to quadricep strain and hematoma, incidental finding lateral meniscus tear- Dr. Kline, orthopedic surgery consulted during admission. MRI revealed hematoma over the anteromedial knee and quadricep strain. Incidental lateral meniscus tear and degenerative changes of the lateral compartment noted as well as medial distal femoral condyle cyst at the epicondyle. Patient recommended to continue weightbearing as tolerated. Recommended discontinuing Plavix for at least 2 weeks to prevent hematoma progression until follow-up with orthopedic medicine, at that time if swelling and pain is improved, may resume Plavix. Continue as needed Tylenol. Recommend heat application 2-3 times per day. Discharged on Medrol Dosepak. Follow-up with Dr. Kline in 2 weeks. Prescription given for outpatient PT. 2. Carotid artery disease-carotid duplex ultrasound August 2019 demonstrated 50 to 69% stenosis right internal carotid, greater than 50% stenosis right external carotid, less than 50% stenosis left internal and external carotid. Patent and antegrade vertebrals bilaterally. Patient follows with Dr. Matthews. Patient is on Plavix every other day for CVA prevention. As noted above, recommend holding Plavix short-term to prevent progression of hematoma. If left knee appears stable at 2-week follow-up, recommend resuming Plavix every other day as previously scheduled. Patient states she takes Plavix for high blood pressure -review of cardiology and vascular surgery outpatient notes, patient is taking Plavix for stroke prevention related to carotid artery disease. 3. Type 2 diabetes mellitus-continue home oral regimen. 4. Hypertension-stable, continue amlodipine, losartan, hydralazine. 5. Hypothyroidism-continue home Synthroid regimen. 6. Depression-continue venlafaxine regimen. General: Alert, Oriented x3, Cooperative HEENT: Atraumatic, PERRLA, EOMI, Normocephalic Neck: Supple, No JVD, Negative Carotid Bruits Lungs: Clear to auscultation, Normal air movement Cardiovascular: Regular rate, Regular Rhythm, Normal S1, Normal S2, No murmurs Abdomen: Bowel Sounds Present, Soft, Non Tender, Non-Distended Extremities: No clubbing, No cyanosis, Capillary Refill Less than 3 Seconds, Edema - Left knee Skin: No rashes, No breakdown, left knee ecchymosis Musculoskeletal: Tenderness - Left knee Neurological: Cranial nerves II-XII grossly intact, Neuro grossly intact Psych/Mental Status: Normal Affect, Appropriate Patient seen and examined prior to discharge. Physical assessment as noted above. Patient is stable for discharge with follow up recommendations as noted above. This patient was seen by RADHA Montano under the supervision of Dr. Darby. - Physical Exam Vitals/I&O's: Vital Signs Temp Pulse Resp BP Pulse Ox 97.7 F L 79 18 125/65 H 100 02/10/20 08:40 02/10/20 08:40 02/10/20 08:40 02/10/20 08:40 02/10/20 08:40 Oxygen Delivery Method Room Air Weight: 105 lb 2.568 oz Body Mass Index (BMI) 18.9 Intake and Output for Last 24 Hours 02/08/20 02/09/20 02/10/20 23:59 23:59 23:59 Intake Total 890 / 890 500 / 500 Output Total 1750 / 1750 350 / 350 Balance -860 / -860 150 / 150 Laboratory Results 02/09/20 14:31: POC Glucose 155 H 02/09/20 18:00: POC Glucose 285 H 02/09/20 21:07: POC Glucose 191 H 02/10/20 06:48: WBC 7.0, RBC 4.23, Hgb 12.0, Hct 36.5 L, MCV 86.3, MCH 28.4, MCHC 32.9, RDW Std Deviation 40.5, RDW Coeff of Obed 13.1, Plt Count 194, MPV 10.1 02/10/20 11:45: POC Glucose 278 H Current Medications Acetaminophen (Tylenol) 1,000 mg PO Q8 [facility] Last Admin: 02/10/20 06:43 Dose: 1,000 mg Documented by: Al Hydroxide/Mg Hydroxide (Mylanta Ii) 30 ml PO Q6H PRN PRN PRN Reason: Gastric Burning Albuterol Sulfate (Ventolin Aerosols) 2.5 mg INHALATION Q2H PRN PRN PRN Reason: Shortness of Breath/Wheezing Amlodipine Besylate (Norvasc) 5 mg PO QHS [facility] Last Admin: 02/09/20 21:10 Dose: 5 mg Documented by: Clopidogrel Bisulfate (Plavix) 75 mg PO QODAY [facility] Last Admin: 02/10/20 10:36 Dose: 75 mg Documented by: Enoxaparin Sodium (Lovenox) 40 mg SC DAILY [facility] Last Admin: 02/10/20 10:35 Dose: 40 mg Documented by: Famotidine (Pepcid) 20 mg PO BID [facility] Last Admin: 02/10/20 10:35 Dose: 20 mg Documented by: Glucagon () 1 mg IM .X1 PRN PRN Reason: Hypoglycemia Guaifenesin (Robitussin) 20 ml PO Q4H PRN PRN PRN Reason: COUGH Hydralazine HCl (Apresoline) 50 mg PO TID [facility] Last Admin: 02/10/20 06:40 Dose: 50 mg Documented by: Dextrose (Dextrose 10%-Water) 250 mls @ 999 mls/hr IV .Q16M PRN; Protocol PRN Reason: HYPOGLYCEMIA Ibuprofen (Motrin) 400 mg PO Q4H PRN PRN PRN Reason: Pain Score 1-10/Temp > 100.7 F Insulin Human Lispro (Humalog Kwikpen (Bkc)) 0 unit SC ACHS [facility]; Protocol Last Admin: 02/10/20 06:49 Dose: 1 u Documented by: Levothyroxine Sodium (Synthroid) 88 mcg PO DAILY@0600 [facility] Last Admin: 02/10/20 06:43 Dose: 88 mcg Documented by: Losartan Potassium (Cozaar) 100 mg PO DAILY [facility] Last Admin: 02/10/20 10:35 Dose: 100 mg Documented by: Magnesium Hydroxide (Milk Of Magnesia) 30 ml PO DAILY PRN PRN PRN Reason: Constipation Last Admin: 02/09/20 21:24 Dose: 30 ml Documented by: Melatonin (Melatonin) 3 mg PO QHS PRN PRN PRN Reason: INSOMNIA Morphine Sulfate () 2 mg IV Q3H PRN PRN PRN Reason: Pain Score 6-10/10 Ondansetron HCl (Zofran) 4 mg IV Q8H PRN PRN PRN Reason: NAUSEA/VOMITING Oxycodone HCl (Oxyir) 5 mg PO Q4H PRN PRN PRN Reason: Pain Score 4-5/10 Last Admin: 02/09/20 00:13 Dose: 5 mg Documented by: Prednisone () 40 mg PO DAILY@0800 [facility] Stop: 02/14/20 08:01 Last Admin: 02/10/20 10:34 Dose: 40 mg Documented by: Prochlorperazine Edisylate (Compazine Iv) 5 mg IV Q4H PRN PRN PRN Reason: Breakthrough nausea/vomiting Psyllium Hydrophilic Mucilloid (Metamucil) 1 packet PO DAILY PRN PRN PRN Reason: Constipation Senna/Docusate Sodium (Senokot-S, Malissa-Colace) 2 tablet PO BID PRN PRN PRN Reason: Constipation Sodium Chloride () 10 - 40 ml IV UD PRN PRN Reason: SALINE FLUSH Throat Lozenges (Cepacol Sore Throat Lozenge) 1 lozenge MUCOUS MEM Q2H PRN PRN PRN Reason: SORE THROAT Venlafaxine HCl (Effexor Xr) 37.5 mg PO QHS [facility] Last Admin: 02/09/20 21:10 Dose: 37.5 mg Documented by: Discharge Diet: No Restrictions Discharge Activity: - - Weightbearing as tolerated left lower extremity Call your doctor if you observe: Shortness of breath, Dizziness, Fainting spells, Chest pain, Uncontrolled pain Home Medications: Medications to take at Discharge biotin 1 mg capsule 1 mg PO DAILY 09/14/19 cholecalciferol (vitamin D3) 25 mcg (1,000 unit) tablet 1,000 unit PO DAILY 09/14/19 levothyroxine 88 mcg tablet 88 mcg PO DAILY 09/14/19 sennosides 8.6 mg tablet 8.6 mg PO DAILY PRN 09/14/19 venlafaxine 37.5 mg capsule,extended release 24 hr 37.5 mg PO QHS 09/14/19 amlodipine 5 mg tablet 5 mg PO QHS #90 tab 02/06/20 losartan 100 mg tablet 100 mg PO DAILY #90 tab 02/06/20 pioglitazone 15 mg tablet 15 mg PO DAILY 02/06/20 Clopidogrel Bisulfate [Clopidogrel] 75 mg PO QODAY 02/08/20 hydrALAZINE [Apresoline] 50 mg PO TID 02/08/20 MethylPREDNISolone DosePak [Medrol DosePak] 4 mg PO UD #1 box 02/10/20 Following Prescrptions Were Given to Patient: MethylPREDNISolone DosePak [Medrol DosePak] 4 mg PO UD #1 box Transmission Status: Received by [facility] [facility] Primary Care Physician: Karla Bhagat MD [Primary Care Provider] - 1 Week if not improving Please follow up with your Primary Care Physician in: 1 Week Please Follow Up With: Magdiel Kline MD When: 2 Weeks Patient Instructions: CONTUSION, Lower Extremity Disposition: Home Minutes spent on discharge:: 35 Patient Condition:: Stable Medical Necessity - Tobacco Use Smoking Status: Never smoker Tobacco Use: Non-smoker Meaningful Use Info Meaningful Use Diagnoses (Choose all that apply): None applicable <Anthony Darby - Last Filed: 02/12/20 13:39> Discharge Date and Diagnosis - Secondary Discharge Diagnosis Chronic Problems (Last Reviewed 02/05/20 @ 09:07 by Adela Soto) Diabetes mellitus, type II (Chronic) Carotid stenosis, bilateral (Chronic) Essential hypertension (Chronic) 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 carotid bruits (Chronic) History of thyroidectomy (Chronic) History of left heart catheterization (Chronic 12/28/14) normal coronary arteries Hypothyroidism (Chronic) Hyperlipidemia (Chronic) Hospital Course and Treatment Summary of Care Provided: The patient is a 79 year old F [] - Physical Exam Vitals/I&O's: Vital Signs Temp Pulse Resp BP Pulse Ox 98.2 F 84 16 139/53 H 98 02/12/20 09:16 02/12/20 09:16 02/12/20 09:16 02/12/20 09:16 02/12/20 09:16 Oxygen Delivery Method Room Air Weight: 105 lb 2.568 oz Body Mass Index (BMI) 18.9 Intake and Output for Last 24 Hours 02/10/20 02/11/20 02/12/20 23:59 23:59 23:59 Intake Total 1380 / 1380 1200 / 1200 260 / 260 Output Total 350 / 600 1503 / 2103 1500 / 1500 Balance 1030 / 780 -303 / -903 -1240 / -1240 Microbiology Past 72 Hours 02/11/20 16:15 Urine, Clean Catch Urine Culture - Preliminary Culture exhibits no growth. Laboratory Results 02/11/20 16:15: Urine Color Yellow, Urine Clarity Sl. Cloudy, Urine pH 7.0, Ur Specific [place] 1.005, Urine Protein Negative, Urine Glucose (UA) 1000 H, Urine Ketones Negative, Urine Occult Blood Negative, Urine Nitrite Negative, Urine Bilirubin Negative, Urine Urobilinogen Normal, Ur Leukocyte Esterase Negative, Urine RBC 0 SEEN, Urine WBC 0 SEEN, Ur Squamous Epith Cells 0 SEEN, Urine Bacteria 0 SEEN, Urine Mucus 0 SEEN 02/11/20 16:59: POC Glucose 388 H 02/11/20 22:19: POC Glucose 358 H 02/12/20 06:21: POC Glucose 189 H 02/12/20 11:33: POC Glucose 332 H Current Medications Acetaminophen (Tylenol) 1,000 mg PO Q8 [facility] Last Admin: 02/12/20 06:22 Dose: 1,000 mg Documented by: Al Hydroxide/Mg Hydroxide (Mylanta Ii) 30 ml PO Q6H PRN PRN PRN Reason: Gastric Burning Albuterol Sulfate (Ventolin Aerosols) 2.5 mg INHALATION Q2H PRN PRN PRN Reason: Shortness of Breath/Wheezing Amlodipine Besylate (Norvasc) 5 mg PO QHS [facility] Last Admin: 02/11/20 22:23 Dose: 5 mg Documented by: Bisacodyl (Dulcolax) 10 mg RECTAL DAILY PRN PRN PRN Reason: Constipation Last Admin: 02/12/20 09:35 Dose: 10 mg Documented by: Enoxaparin Sodium (Lovenox) 40 mg SC DAILY [facility] Last Admin: 02/12/20 09:18 Dose: 40 mg Documented by: Famotidine (Pepcid) 20 mg PO BID [facility] Last Admin: 02/12/20 09:18 Dose: 20 mg Documented by: Glucagon () 1 mg IM .X1 PRN PRN Reason: Hypoglycemia Guaifenesin (Robitussin) 20 ml PO Q4H PRN PRN PRN Reason: COUGH Hydralazine HCl (Apresoline) 50 mg PO TID [facility] Last Admin: 02/12/20 06:23 Dose: 50 mg Documented by: Dextrose (Dextrose 10%-Water) 250 mls @ 999 mls/hr IV .Q16M PRN; Protocol PRN Reason: HYPOGLYCEMIA Ibuprofen (Motrin) 400 mg PO Q4H PRN PRN PRN Reason: Pain Score 1-10/Temp > 100.7 F Last Admin: 02/10/20 16:55 Dose: 400 mg Documented by: Insulin Human Lispro (Humalog Kwikpen (Bkc)) 0 unit SC ACHS [facility]; Protocol Last Admin: 02/12/20 11:35 Dose: 3 u Documented by: Levothyroxine Sodium (Synthroid) 88 mcg PO DAILY@0600 [facility] Last Admin: 02/12/20 06:22 Dose: 88 mcg Documented by: Losartan Potassium (Cozaar) 100 mg PO DAILY [facility] Last Admin: 02/12/20 09:18 Dose: 100 mg Documented by: Magnesium Hydroxide (Milk Of Magnesia) 30 ml PO DAILY PRN PRN PRN Reason: Constipation Last Admin: 02/10/20 16:59 Dose: 30 ml Documented by: Melatonin (Melatonin) 3 mg PO QHS PRN PRN PRN Reason: INSOMNIA Last Admin: 02/11/20 22:23 Dose: 3 mg Documented by: Morphine Sulfate () 2 mg IV Q3H PRN PRN PRN Reason: Pain Score 6-10/10 Ondansetron HCl (Zofran) 4 mg IV Q8H PRN PRN PRN Reason: NAUSEA/VOMITING Oxycodone HCl (Oxyir) 5 mg PO Q4H PRN PRN PRN Reason: Pain Score 4-5/10 Last Admin: 02/11/20 09:16 Dose: 5 mg Documented by: Prednisone () 40 mg PO DAILY@0800 [facility] Stop: 02/14/20 08:01 Last Admin: 02/12/20 09:18 Dose: 40 mg Documented by: Prochlorperazine Edisylate (Compazine Iv) 5 mg IV Q4H PRN PRN PRN Reason: Breakthrough nausea/vomiting Psyllium Hydrophilic Mucilloid (Metamucil) 1 packet PO DAILY PRN PRN PRN Reason: Constipation Last Admin: 02/11/20 20:53 Dose: 1 packet Documented by: Senna/Docusate Sodium (Senokot-S, Malissa-Colace) 2 tablet PO BID PRN PRN PRN Reason: Constipation Last Admin: 02/11/20 20:52 Dose: 2 tablet Documented by: Sodium Chloride () 10 - 40 ml IV UD PRN PRN Reason: SALINE FLUSH Throat Lozenges (Cepacol Sore Throat Lozenge) 1 lozenge MUCOUS MEM Q2H PRN PRN PRN Reason: SORE THROAT Venlafaxine HCl (Effexor Xr) 37.5 mg PO QHS [facility] Last Admin: 02/11/20 22:23 Dose: 37.5 mg Documented by: Addendum: Dr. Darby I personally examined the patient and reviewed the chart. I agree with the above. 79-year-old female status post mechanical fall with left knee pain. X- rays were negative however an MRI showed a lateral meniscal tear, orthopedic surgery was consulted and they felt that that was likely an incidental finding and that most of her pain is due to hematoma. She was able to ambulate around the entire third floor nursing unit and states that she did not know that she would have to go to a skilled nursing for several weeks for therapy and therefore she would prefer to go home today. OBSV E&M: [id number] Observation care discharge
[2020-02-10 12:21] LABS: Bedside Glucose 177 mg/dL (70-110)
[2020-02-10] MEDS: oxyCODONE 5 MG Tablet PO ×2 (13:49→20:26)
--- NOTE | 2020-02-10 14:23 | PN_ITS ---
<Pat Santiago - Last Filed: 02/10/20 14:42> Subjective: Patient seen and examined. Reports mild improvement in left knee pain today however during physical therapy, she had difficulty bearing weight or ambulating. Will continue current treatment and reevaluate tomorrow. Patient is hopeful she can return home. - Physical Exam Vitals/I&O's: Vital Signs Temp Pulse Resp BP Pulse Ox 98.5 F 72 18 122/57 H 97 02/10/20 13:45 02/10/20 13:49 02/10/20 13:45 02/10/20 13:49 02/10/20 13:45 Oxygen Delivery Method Room Air Weight: 105 lb 2.568 oz Body Mass Index (BMI) 18.9 Intake and Output for Last 24 Hours 02/08/20 02/09/20 02/10/20 23:59 23:59 23:59 Intake Total 890 / 890 500 / 500 Output Total 1750 / 1750 350 / 350 Balance -860 / -860 150 / 150 General: Alert, Oriented x3, Cooperative HEENT: Atraumatic, PERRLA, EOMI, Normocephalic Neck: Supple, No JVD, Negative Carotid Bruits Lungs: Clear to auscultation, Normal air movement Cardiovascular: Regular rate, Regular Rhythm, Normal S1, Normal S2, No murmurs Abdomen: Bowel Sounds Present, Soft, Non Tender, Non-Distended Extremities: No clubbing, No cyanosis, Capillary Refill Less than 3 Seconds, Edema - Left knee Skin: No rashes, No breakdown, - - Left knee ecchymosis Musculoskeletal: No Tenderness to Palpation of Joints or Extremities, Tenderness - Left knee Neurological: Cranial nerves II-XII grossly intact, Neuro grossly intact Psych/Mental Status: Normal Affect, Appropriate Laboratory Results 02/09/20 14:31: POC Glucose 155 H 02/09/20 18:00: POC Glucose 285 H 02/09/20 21:07: POC Glucose 191 H 02/10/20 06:48: WBC 7.0, RBC 4.23, Hgb 12.0, Hct 36.5 L, MCV 86.3, MCH 28.4, MCHC 32.9, RDW Std Deviation 40.5, RDW Coeff of Obed 13.1, Plt Count 194, MPV 10.1 02/10/20 06:48: POC Glucose 177 H 02/10/20 11:45: POC Glucose 278 H Current Medications Acetaminophen (Tylenol) 1,000 mg PO Q8 [facility] Last Admin: 02/10/20 13:49 Dose: 1,000 mg Documented by: Al Hydroxide/Mg Hydroxide (Mylanta Ii) 30 ml PO Q6H PRN PRN PRN Reason: Gastric Burning Albuterol Sulfate (Ventolin Aerosols) 2.5 mg INHALATION Q2H PRN PRN PRN Reason: Shortness of Breath/Wheezing Amlodipine Besylate (Norvasc) 5 mg PO QHS [facility] Last Admin: 02/09/20 21:10 Dose: 5 mg Documented by: Clopidogrel Bisulfate (Plavix) 75 mg PO QODAY [facility] Last Admin: 02/10/20 10:36 Dose: 75 mg Documented by: Enoxaparin Sodium (Lovenox) 40 mg SC DAILY [facility] Last Admin: 02/10/20 10:35 Dose: 40 mg Documented by: Famotidine (Pepcid) 20 mg PO BID [facility] Last Admin: 02/10/20 10:35 Dose: 20 mg Documented by: Glucagon () 1 mg IM .X1 PRN PRN Reason: Hypoglycemia Guaifenesin (Robitussin) 20 ml PO Q4H PRN PRN PRN Reason: COUGH Hydralazine HCl (Apresoline) 50 mg PO TID [facility] Last Admin: 02/10/20 13:49 Dose: 50 mg Documented by: Dextrose (Dextrose 10%-Water) 250 mls @ 999 mls/hr IV .Q16M PRN; Protocol PRN Reason: HYPOGLYCEMIA Ibuprofen (Motrin) 400 mg PO Q4H PRN PRN PRN Reason: Pain Score 1-10/Temp > 100.7 F Insulin Human Lispro (Humalog Kwikpen (Bkc)) 0 unit SC ACHS [facility]; Protocol Last Admin: 02/10/20 12:13 Dose: 4 u Documented by: Levothyroxine Sodium (Synthroid) 88 mcg PO DAILY@0600 [facility] Last Admin: 02/10/20 06:43 Dose: 88 mcg Documented by: Losartan Potassium (Cozaar) 100 mg PO DAILY [facility] Last Admin: 02/10/20 10:35 Dose: 100 mg Documented by: Magnesium Hydroxide (Milk Of Magnesia) 30 ml PO DAILY PRN PRN PRN Reason: Constipation Last Admin: 02/09/20 21:24 Dose: 30 ml Documented by: Melatonin (Melatonin) 3 mg PO QHS PRN PRN PRN Reason: INSOMNIA Morphine Sulfate () 2 mg IV Q3H PRN PRN PRN Reason: Pain Score 6-10/10 Ondansetron HCl (Zofran) 4 mg IV Q8H PRN PRN PRN Reason: NAUSEA/VOMITING Oxycodone HCl (Oxyir) 5 mg PO Q4H PRN PRN PRN Reason: Pain Score 4-5/10 Last Admin: 02/10/20 13:49 Dose: 5 mg Documented by: Prednisone () 40 mg PO DAILY@0800 [facility] Stop: 02/14/20 08:01 Last Admin: 02/10/20 10:34 Dose: 40 mg Documented by: Prochlorperazine Edisylate (Compazine Iv) 5 mg IV Q4H PRN PRN PRN Reason: Breakthrough nausea/vomiting Psyllium Hydrophilic Mucilloid (Metamucil) 1 packet PO DAILY PRN PRN PRN Reason: Constipation Senna/Docusate Sodium (Senokot-S, Malissa-Colace) 2 tablet PO BID PRN PRN PRN Reason: Constipation Sodium Chloride () 10 - 40 ml IV UD PRN PRN Reason: SALINE FLUSH Throat Lozenges (Cepacol Sore Throat Lozenge) 1 lozenge MUCOUS MEM Q2H PRN PRN PRN Reason: SORE THROAT Venlafaxine HCl (Effexor Xr) 37.5 mg PO QHS [facility] Last Admin: 02/09/20 21:10 Dose: 37.5 mg Documented by: Medical Necessity - Tobacco Use Smoking Status: Never smoker Tobacco Use: Non-smoker Assessment/Plan All Active Problems (Last Reviewed 02/05/20 @ 09:07 by Adela Soto) Contusion of left knee (Acute) Dizziness (Resolved) Otitis media (Acute) 1. Intractable left knee pain secondary to quadricep strain and hematoma, incidental finding lateral meniscus tear- Dr. Kline, orthopedic surgery consulted during admission. MRI revealed hematoma over the anteromedial knee and quadricep strain. Incidental lateral meniscus tear and degenerative changes of the lateral compartment noted as well as medial distal femoral condyle cyst at the epicondyle. Patient recommended to continue weightbearing as tolerated. Recommended discontinuing Plavix for at least 2 weeks to prevent hematoma progression until follow-up with orthopedic medicine, at that time if swelling and pain is improved, may resume Plavix. Continue as needed Tylenol. Recommend heat application 2-3 times per day. Continue prednisone. Will repeat PT eval tomorrow, patient is able to tolerate weightbearing, will discharge for further outpatient follow-up. 2. Carotid artery disease-carotid duplex ultrasound August 2019 demonstrated 50 to 69% stenosis right internal carotid, greater than 50% stenosis right external carotid, less than 50% stenosis left internal and external carotid. Patent and antegrade vertebrals bilaterally. Patient follows with Dr. Matthews. Patient is on Plavix every other day for CVA prevention. As noted above, recommend holding Plavix short-term to prevent progression of hematoma. If left knee appears stable at 2-week follow-up, recommend resuming Plavix every other day as previously scheduled. Patient states she takes Plavix for high blood pressure -review of cardiology and vascular surgery outpatient notes, patient is taking Plavix for stroke prevention related to carotid artery disease. 3. Type 2 diabetes mellitus-continue home oral regimen. 4. Hypertension-stable, continue amlodipine, losartan, hydralazine. 5. Hypothyroidism-continue home Synthroid regimen. 6. Depression-continue venlafaxine regimen. DVT prophylaxis-Lovenox, SCDs This patient was seen by RADHA Montano under the supervision of Dr. Darby. <Anthony Darby F - Last Filed: 02/10/20 14:50> - Physical Exam Vitals/I&O's: Vital Signs Temp Pulse Resp BP Pulse Ox 98.5 F 72 18 122/57 H 97 02/10/20 13:45 02/10/20 13:49 02/10/20 13:45 02/10/20 13:49 02/10/20 13:45 Oxygen Delivery Method Room Air Weight: 105 lb 2.568 oz Body Mass Index (BMI) 18.9 Intake and Output for Last 24 Hours 02/08/20 02/09/20 02/10/20 23:59 23:59 23:59 Intake Total 890 / 890 500 / 500 Output Total 1750 / 1750 350 / 350 Balance -860 / -860 150 / 150 Laboratory Results 02/09/20 18:00: POC Glucose 285 H 02/09/20 21:07: POC Glucose 191 H 02/10/20 06:48: WBC 7.0, RBC 4.23, Hgb 12.0, Hct 36.5 L, MCV 86.3, MCH 28.4, MCHC 32.9, RDW Std Deviation 40.5, RDW Coeff of Obed 13.1, Plt Count 194, MPV 10.1 02/10/20 06:48: POC Glucose 177 H 02/10/20 11:45: POC Glucose 278 H Current Medications Acetaminophen (Tylenol) 1,000 mg PO Q8 [facility] Last Admin: 02/10/20 13:49 Dose: 1,000 mg Documented by: Al Hydroxide/Mg Hydroxide (Mylanta Ii) 30 ml PO Q6H PRN PRN PRN Reason: Gastric Burning Albuterol Sulfate (Ventolin Aerosols) 2.5 mg INHALATION Q2H PRN PRN PRN Reason: Shortness of Breath/Wheezing Amlodipine Besylate (Norvasc) 5 mg PO QHS [facility] Last Admin: 02/09/20 21:10 Dose: 5 mg Documented by: Enoxaparin Sodium (Lovenox) 40 mg SC DAILY [facility] Last Admin: 02/10/20 10:35 Dose: 40 mg Documented by: Famotidine (Pepcid) 20 mg PO BID [facility] Last Admin: 02/10/20 10:35 Dose: 20 mg Documented by: Glucagon () 1 mg IM .X1 PRN PRN Reason: Hypoglycemia Guaifenesin (Robitussin) 20 ml PO Q4H PRN PRN PRN Reason: COUGH Hydralazine HCl (Apresoline) 50 mg PO TID [facility] Last Admin: 02/10/20 13:49 Dose: 50 mg Documented by: Dextrose (Dextrose 10%-Water) 250 mls @ 999 mls/hr IV .Q16M PRN; Protocol PRN Reason: HYPOGLYCEMIA Ibuprofen (Motrin) 400 mg PO Q4H PRN PRN PRN Reason: Pain Score 1-10/Temp > 100.7 F Insulin Human Lispro (Humalog Kwikpen (Bkc)) 0 unit SC ACHS [facility]; Protocol Last Admin: 02/10/20 12:13 Dose: 4 u Documented by: Levothyroxine Sodium (Synthroid) 88 mcg PO DAILY@0600 [facility] Last Admin: 02/10/20 06:43 Dose: 88 mcg Documented by: Losartan Potassium (Cozaar) 100 mg PO DAILY [facility] Last Admin: 02/10/20 10:35 Dose: 100 mg Documented by: Magnesium Hydroxide (Milk Of Magnesia) 30 ml PO DAILY PRN PRN PRN Reason: Constipation Last Admin: 02/09/20 21:24 Dose: 30 ml Documented by: Melatonin (Melatonin) 3 mg PO QHS PRN PRN PRN Reason: INSOMNIA Morphine Sulfate () 2 mg IV Q3H PRN PRN PRN Reason: Pain Score 6-10/10 Ondansetron HCl (Zofran) 4 mg IV Q8H PRN PRN PRN Reason: NAUSEA/VOMITING Oxycodone HCl (Oxyir) 5 mg PO Q4H PRN PRN PRN Reason: Pain Score 4-5/10 Last Admin: 02/10/20 13:49 Dose: 5 mg Documented by: Prednisone () 40 mg PO DAILY@0800 [facility] Stop: 02/14/20 08:01 Last Admin: 02/10/20 10:34 Dose: 40 mg Documented by: Prochlorperazine Edisylate (Compazine Iv) 5 mg IV Q4H PRN PRN PRN Reason: Breakthrough nausea/vomiting Psyllium Hydrophilic Mucilloid (Metamucil) 1 packet PO DAILY PRN PRN PRN Reason: Constipation Senna/Docusate Sodium (Senokot-S, Malissa-Colace) 2 tablet PO BID PRN PRN PRN Reason: Constipation Sodium Chloride () 10 - 40 ml IV UD PRN PRN Reason: SALINE FLUSH Throat Lozenges (Cepacol Sore Throat Lozenge) 1 lozenge MUCOUS MEM Q2H PRN PRN PRN Reason: SORE THROAT Venlafaxine HCl (Effexor Xr) 37.5 mg PO QHS [facility] Last Admin: 02/09/20 21:10 Dose: 37.5 mg Documented by: Addendum: Dr. Darby I personally examined the patient and reviewed the chart. I agree with the above. 79-year-old female status post mechanical fall with left knee pain. X- rays were negative however an MRI showed a lateral meniscal tear, orthopedic surgery was consulted and they felt that that was likely an incidental finding and that most of her pain is due to hematoma. We attempted to get her up today with PT/OT however she said that it was too painful to be safe enough to go home. Therefore we will plan to keep her 1 more day and evaluate her in the morning. OBSV E&M: 27855 Subsequent observation care L2
[2020-02-10] MEDS: Ibuprofen 400 MG Tablet PO (16:55)
[2020-02-10 16:56] LABS: Bedside Glucose 397 mg/dL (70-110)
[2020-02-10] MEDS: Magnesium Hydroxide 30 ML UDC PO (16:59)
[2020-02-10] MEDS: amLODIPine 5 MG Tablet PO (22:04)
[2020-02-10] MEDS: Venlafaxine XR 37.5 MG Capsule PO (22:04)
[2020-02-10] MEDS: Senna/Docusate Sodium 1 Tablet 2 TABLET PO (22:04)
[2020-02-10] MEDS: MELATONIN 3 MG TABLET PO (22:04)
[2020-02-10 22:10] LABS: Bedside Glucose 365 mg/dL (70-110)
[2020-02-11] VITALS (8 sets, daily range): BP systolic 154–158; BP diastolic 56–76; PULSE 72–84; RESP 18; TEMP 36.6–36.8; O2SAT 95–97
[2020-02-11] MEDS: hydrALAZINE 50 MG Tablet PO ×3 (06:23→22:23)
[2020-02-11] MEDS: Acetaminophen 500 MG Tablet 1000 MG PO ×3 (06:23→22:23)
[2020-02-11] MEDS: Insulin Lispro 100 UNIT/ML INSULN.PEN SC ×4 (06:31→22:24)
[2020-02-11] MEDS: Levothyroxine 88 MCG Tablet PO (06:34)
[2020-02-11 06:51] LABS: Bedside Glucose 170 mg/dL (70-110)
[2020-02-11] MEDS: predniSONE 20 MG Tablet 40 MG PO (08:56)
[2020-02-11] MEDS: Losartan Potassium 100 MG Tablet PO (08:57)
[2020-02-11] MEDS: Famotidine 20 MG Tablet PO ×2 (08:57→22:23)
[2020-02-11] MEDS: oxyCODONE 5 MG Tablet PO (09:16)
[2020-02-11] MEDS: Enoxaparin 40 MG/0.4 ML Syringe SC (09:19)
[2020-02-11 11:40] LABS: Bedside Glucose 333 mg/dL (70-110)
--- NOTE | 2020-02-11 13:15 | NURSING ---
SPOKE TO FREDDIE Gallegos IN CASE MANAGEMENT. WILL BEGIN POSSIBLE REHAB/TCU/SNF PAPERWORK ON WEDNESDAY.
--- NOTE | 2020-02-11 13:42 | PCM.PROGNOTE ---
<Pat Santiago - Last Filed: 02/11/20 13:45> Subjective: Patient seen and examined. Ambulating with walker independently in room and denies significant knee pain. PT evaluated patient later today and patient documented to be tearful and voiced concerns on ability to return home given she is caring for her . Patient now agreeable to short-term rehab. - Physical Exam Vitals/I&O's: Vital Signs Temp Pulse Resp BP Pulse Ox 98.3 F 77 18 154/62 H 95 02/11/20 08:05 02/11/20 08:05 02/11/20 08:05 02/11/20 08:05 02/11/20 08:09 Oxygen Delivery Method Room Air Weight: 105 lb 2.568 oz Body Mass Index (BMI) 18.9 Intake and Output for Last 24 Hours 02/09/20 02/10/20 02/11/20 23:59 23:59 23:59 Intake Total 890 / 890 1380 / 1380 Output Total 1750 / 1750 350 / 600 750 / 750 Balance -860 / -860 1030 / 780 -750 / -750 General: Alert, Oriented x3, Cooperative HEENT: Atraumatic, PERRLA, EOMI, Normocephalic Neck: Supple, No JVD, Negative Carotid Bruits Lungs: Clear to auscultation, Normal air movement Cardiovascular: Regular rate, Regular Rhythm, Normal S1, Normal S2, No murmurs Abdomen: Bowel Sounds Present, Soft, Non Tender, Non-Distended Extremities: No clubbing, No cyanosis, Edema - Left knee, improved Skin: - - Left knee ecchymosis Musculoskeletal: No Tenderness to Palpation of Joints or Extremities Neurological: Cranial nerves II-XII grossly intact, Neuro grossly intact Psych/Mental Status: Normal Affect, Appropriate Laboratory Results 02/10/20 16:47: POC Glucose 397 H 02/10/20 22:03: POC Glucose 365 H 02/11/20 06:22: POC Glucose 170 H 02/11/20 11:33: POC Glucose 333 H Current Medications Acetaminophen (Tylenol) 1,000 mg PO Q8 [facility] Last Admin: 02/11/20 06:23 Dose: 1,000 mg Documented by: Al Hydroxide/Mg Hydroxide (Mylanta Ii) 30 ml PO Q6H PRN PRN PRN Reason: Gastric Burning Albuterol Sulfate (Ventolin Aerosols) 2.5 mg INHALATION Q2H PRN PRN PRN Reason: Shortness of Breath/Wheezing Amlodipine Besylate (Norvasc) 5 mg PO QHS [facility] Last Admin: 02/10/20 22:04 Dose: 5 mg Documented by: Enoxaparin Sodium (Lovenox) 40 mg SC DAILY [facility] Last Admin: 02/11/20 09:19 Dose: 40 mg Documented by: Famotidine (Pepcid) 20 mg PO BID [facility] Last Admin: 02/11/20 08:57 Dose: 20 mg Documented by: Glucagon () 1 mg IM .X1 PRN PRN Reason: Hypoglycemia Guaifenesin (Robitussin) 20 ml PO Q4H PRN PRN PRN Reason: COUGH Hydralazine HCl (Apresoline) 50 mg PO TID [facility] Last Admin: 02/11/20 06:23 Dose: 50 mg Documented by: Dextrose (Dextrose 10%-Water) 250 mls @ 999 mls/hr IV .Q16M PRN; Protocol PRN Reason: HYPOGLYCEMIA Ibuprofen (Motrin) 400 mg PO Q4H PRN PRN PRN Reason: Pain Score 1-10/Temp > 100.7 F Last Admin: 02/10/20 16:55 Dose: 400 mg Documented by: Insulin Human Lispro (Humalog Kwikpen (Bkc)) 0 unit SC [facility]; Protocol Last Admin: 02/11/20 12:13 Dose: 5 u Documented by: Levothyroxine Sodium (Synthroid) 88 mcg PO DAILY@0600 [facility] Last Admin: 02/11/20 06:34 Dose: 88 mcg Documented by: Losartan Potassium (Cozaar) 100 mg PO DAILY [facility] Last Admin: 02/11/20 08:57 Dose: 100 mg Documented by: Magnesium Hydroxide (Milk Of Magnesia) 30 ml PO DAILY PRN PRN PRN Reason: Constipation Last Admin: 02/10/20 16:59 Dose: 30 ml Documented by: Melatonin (Melatonin) 3 mg PO QHS PRN PRN PRN Reason: INSOMNIA Last Admin: 02/10/20 22:04 Dose: 3 mg Documented by: Morphine Sulfate () 2 mg IV Q3H PRN PRN PRN Reason: Pain Score 6-10/10 Ondansetron HCl (Zofran) 4 mg IV Q8H PRN PRN PRN Reason: NAUSEA/VOMITING Oxycodone HCl (Oxyir) 5 mg PO Q4H PRN PRN PRN Reason: Pain Score 4-5/10 Last Admin: 02/11/20 09:16 Dose: 5 mg Documented by: Prednisone () 40 mg PO DAILY@0800 [facility] Stop: 02/14/20 08:01 Last Admin: 02/11/20 08:56 Dose: 40 mg Documented by: Prochlorperazine Edisylate (Compazine Iv) 5 mg IV Q4H PRN PRN PRN Reason: Breakthrough nausea/vomiting Psyllium Hydrophilic Mucilloid (Metamucil) 1 packet PO DAILY PRN PRN PRN Reason: Constipation Senna/Docusate Sodium (Senokot-S, Malissa-Colace) 2 tablet PO BID PRN PRN PRN Reason: Constipation Last Admin: 02/10/20 22:04 Dose: 2 tablet Documented by: Sodium Chloride () 10 - 40 ml IV UD PRN PRN Reason: SALINE FLUSH Throat Lozenges (Cepacol Sore Throat Lozenge) 1 lozenge MUCOUS MEM Q2H PRN PRN PRN Reason: SORE THROAT Venlafaxine HCl (Effexor Xr) 37.5 mg PO QHS [facility] Last Admin: 02/10/20 22:04 Dose: 37.5 mg Documented by: Medical Necessity - Tobacco Use Smoking Status: Never smoker Tobacco Use: Non-smoker Assessment/Plan All Active Problems (Last Reviewed 02/05/20 @ 09:07 by Adela Soto) Contusion of left knee (Acute) Dizziness (Resolved) Otitis media (Acute) 1. Intractable left knee pain secondary to quadricep strain and hematoma, incidental finding lateral meniscus tear- Dr. Kline, orthopedic surgery consulted during admission. MRI revealed hematoma over the anteromedial knee and quadricep strain. Incidental lateral meniscus tear and degenerative changes of the lateral compartment noted as well as medial distal femoral condyle cyst at the epicondyle. Patient recommended to continue weightbearing as tolerated. Recommended discontinuing Plavix for at least 2 weeks to prevent hematoma progression until follow-up with orthopedic medicine, at that time if swelling and pain is improved, may resume Plavix. Continue as needed Tylenol. Recommend heat application 2-3 times per day. Continue prednisone. PT recommending SNF, consult case management for discharge planning. 2. Carotid artery disease-carotid duplex ultrasound August 2019 demonstrated 50 to 69% stenosis right internal carotid, greater than 50% stenosis right external carotid, less than 50% stenosis left internal and external carotid. Patent and antegrade vertebrals bilaterally. Patient follows with Dr. Matthews. Patient is on Plavix every other day for CVA prevention. As noted above, recommend holding Plavix short-term to prevent progression of hematoma. If left knee appears stable at 2-week follow-up, recommend resuming Plavix every other day as previously scheduled. Patient states she takes Plavix for high blood pressure -review of cardiology and vascular surgery outpatient notes, patient is taking Plavix for stroke prevention related to carotid artery disease. 3. Type 2 diabetes mellitus-continue home oral regimen. 4. Hypertension-stable, continue amlodipine, losartan, hydralazine. 5. Hypothyroidism-continue home Synthroid regimen. 6. Depression-continue venlafaxine regimen. DVT prophylaxis-Lovenox, SCDs Discharge planning: SNF pending pre-CERT. This patient was seen by RADHA Montano under the supervision of Dr. Darby. <Anthony Darby F - Last Filed: 02/11/20 14:51> - Physical Exam Vitals/I&O's: Vital Signs Temp Pulse Resp BP Pulse Ox 98.3 F 77 18 154/62 H 95 02/11/20 08:05 02/11/20 08:05 02/11/20 08:05 02/11/20 08:05 02/11/20 08:09 Oxygen Delivery Method Room Air Weight: 105 lb 2.568 oz Body Mass Index (BMI) 18.9 Intake and Output for Last 24 Hours 02/09/20 02/10/20 02/11/20 23:59 23:59 23:59 Intake Total 890 / 890 1380 / 1380 Output Total 1750 / 1750 350 / 600 750 / 750 Balance -860 / -860 1030 / 780 -750 / -750 Laboratory Results 02/10/20 16:47: POC Glucose 397 H 02/10/20 22:03: POC Glucose 365 H 02/11/20 06:22: POC Glucose 170 H 02/11/20 11:33: POC Glucose 333 H Current Medications Acetaminophen (Tylenol) 1,000 mg PO Q8 [facility] Last Admin: 02/11/20 06:23 Dose: 1,000 mg Documented by: Al Hydroxide/Mg Hydroxide (Mylanta Ii) 30 ml PO Q6H PRN PRN PRN Reason: Gastric Burning Albuterol Sulfate (Ventolin Aerosols) 2.5 mg INHALATION Q2H PRN PRN PRN Reason: Shortness of Breath/Wheezing Amlodipine Besylate (Norvasc) 5 mg PO QHS [facility] Last Admin: 02/10/20 22:04 Dose: 5 mg Documented by: Enoxaparin Sodium (Lovenox) 40 mg SC DAILY [facility] Last Admin: 02/11/20 09:19 Dose: 40 mg Documented by: Famotidine (Pepcid) 20 mg PO BID [facility] Last Admin: 02/11/20 08:57 Dose: 20 mg Documented by: Glucagon () 1 mg IM .X1 PRN PRN Reason: Hypoglycemia Guaifenesin (Robitussin) 20 ml PO Q4H PRN PRN PRN Reason: COUGH Hydralazine HCl (Apresoline) 50 mg PO TID [facility] Last Admin: 02/11/20 06:23 Dose: 50 mg Documented by: Dextrose (Dextrose 10%-Water) 250 mls @ 999 mls/hr IV .Q16M PRN; Protocol PRN Reason: HYPOGLYCEMIA Ibuprofen (Motrin) 400 mg PO Q4H PRN PRN PRN Reason: Pain Score 1-10/Temp > 100.7 F Last Admin: 02/10/20 16:55 Dose: 400 mg Documented by: Insulin Human Lispro (Humalog Kwikpen (Bkc)) 0 unit SC ACHS [facility]; Protocol Last Admin: 02/11/20 12:13 Dose: 5 u Documented by: Levothyroxine Sodium (Synthroid) 88 mcg PO DAILY@0600 [facility] Last Admin: 02/11/20 06:34 Dose: 88 mcg Documented by: Losartan Potassium (Cozaar) 100 mg PO DAILY [facility] Last Admin: 02/11/20 08:57 Dose: 100 mg Documented by: Magnesium Hydroxide (Milk Of Magnesia) 30 ml PO DAILY PRN PRN PRN Reason: Constipation Last Admin: 02/10/20 16:59 Dose: 30 ml Documented by: Melatonin (Melatonin) 3 mg PO QHS PRN PRN PRN Reason: INSOMNIA Last Admin: 02/10/20 22:04 Dose: 3 mg Documented by: Morphine Sulfate () 2 mg IV Q3H PRN PRN PRN Reason: Pain Score 6-10/10 Ondansetron HCl (Zofran) 4 mg IV Q8H PRN PRN PRN Reason: NAUSEA/VOMITING Oxycodone HCl (Oxyir) 5 mg PO Q4H PRN PRN PRN Reason: Pain Score 4-5/10 Last Admin: 02/11/20 09:16 Dose: 5 mg Documented by: Prednisone () 40 mg PO DAILY@0800 [facility] Stop: 02/14/20 08:01 Last Admin: 02/11/20 08:56 Dose: 40 mg Documented by: Prochlorperazine Edisylate (Compazine Iv) 5 mg IV Q4H PRN PRN PRN Reason: Breakthrough nausea/vomiting Psyllium Hydrophilic Mucilloid (Metamucil) 1 packet PO DAILY PRN PRN PRN Reason: Constipation Senna/Docusate Sodium (Senokot-S, Malissa-Colace) 2 tablet PO BID PRN PRN PRN Reason: Constipation Last Admin: 02/10/20 22:04 Dose: 2 tablet Documented by: Sodium Chloride () 10 - 40 ml IV UD PRN PRN Reason: SALINE FLUSH Throat Lozenges (Cepacol Sore Throat Lozenge) 1 lozenge MUCOUS MEM Q2H PRN PRN PRN Reason: SORE THROAT Venlafaxine HCl (Effexor Xr) 37.5 mg PO QHS [facility] Last Admin: 02/10/20 22:04 Dose: 37.5 mg Documented by: Addendum: Dr. Darby I personally examined the patient and reviewed the chart. I agree with the above. 79-year-old female status post mechanical fall with left knee pain. X-rays were negative however an MRI showed a lateral meniscal tear, orthopedic surgery was consulted and they felt that that was likely an incidental finding and that most of her pain is due to hematoma. We attempted to get her up today with PT/OT however she said that it was too painful to be safe enough to go home. She states today that she is too painful to go home and is okay with going to a [place] [facility] facility. We will plan to discharge to transitional care unit another residential if able, if unable to secondary to coronavirus fears then she will end up going home. OBSV E&M: 09324 Subsequent observation care L2
[2020-02-11 16:33] LABS: Bacteria 0 SEEN /hpf (None Seen); Mucous, Urine 0 SEEN /hpf (<or=2+); Red Blood Cells-Urine 0 SEEN /hpf (0-5); Squamous Epithelial Cells - UA 0 SEEN /hpf (5-10); White Blood Cells 0 SEEN /hpf (0-5)
[2020-02-11 16:40] LABS: Color, Urine Yellow (Yellow); Glucose, Dipstick 1000 mg/dl (Normal); Ketone-Dipstick Negative (Negative); Leukocyte Esterase-Dipstick Negative /ul (Negative); Nitrite-Dipstick Negative (Negative); Occult Blood-Urine Negative /ul (Negative); Protein-Dipstick Negative (Negative); Specific Gravity, Urine 1.005 (1.002-1.030); Urine Bilirubin Dipstick Negative (Negative); Urine Clarity Sl. Cloudy (Clear); Urine Urobilinogen Normal (Normal)
[2020-02-11 17:11] LABS: Bedside Glucose 388 mg/dL (70-110)
[2020-02-11] MEDS: Senna/Docusate Sodium 1 Tablet 2 TABLET PO (20:52)
[2020-02-11] MEDS: Psyllium 1 PACKET PO (20:53)
[2020-02-11] MEDS: MELATONIN 3 MG TABLET PO (22:23)
[2020-02-11] MEDS: amLODIPine 5 MG Tablet PO (22:23)
[2020-02-11] MEDS: Venlafaxine XR 37.5 MG Capsule PO (22:23)
[2020-02-11 22:41] LABS: Bedside Glucose 358 mg/dL (70-110)
[2020-02-12 03:00] VITALS: BP 156/71; PULSE 82; RESP 18; TEMP 36.7; O2SAT 96
[2020-02-12] MEDS: Levothyroxine 88 MCG Tablet PO (06:22)
[2020-02-12] MEDS: Acetaminophen 500 MG Tablet 1000 MG PO ×2 (06:22→14:26)
[2020-02-12 06:23] VITALS: PULSE 82
[2020-02-12] MEDS: Insulin Lispro 100 UNIT/ML INSULN.PEN SC ×2 (06:23→11:35)
[2020-02-12] MEDS: hydrALAZINE 50 MG Tablet PO ×2 (06:23→14:25)
[2020-02-12 06:31] LABS: Bedside Glucose 189 mg/dL (70-110)
[2020-02-12 09:16] VITALS: BP 139/53; PULSE 84; RESP 16; TEMP 36.8; O2SAT 98
[2020-02-12] MEDS: Losartan Potassium 100 MG Tablet PO (09:18)
[2020-02-12] MEDS: predniSONE 20 MG Tablet 40 MG PO (09:18)
[2020-02-12] MEDS: Famotidine 20 MG Tablet PO (09:18)
[2020-02-12] MEDS: Enoxaparin 40 MG/0.4 ML Syringe SC (09:18)
[2020-02-12] MEDS: Bisacodyl 10 MG Suppository RECTAL (09:35)
--- NOTE | 2020-02-12 10:45 | CASEMGMT ---
AMBER FRENCH updated by LUIS ANGEL that patient would like [facility] at discharge. RN MANOLO sent referral to [facility] and they are able to accept the patient.
--- NOTE | 2020-02-12 10:57 | CASEMGMT ---
Social Work Note SW met with pt to discuss discharge plans. SW reviewed notes from weekend, pt had stated that she felt like she needed to go to SNF before returning home. SW reviewed PT/OT notes, pt walked 250ft with PT/OT over the weekend. SW spoke with pt regarding going to SNF. Pt states she didn't realize that going for rehab meant going to [place] [facility]. Pt states that she should just go home. Pt states that her son is taking care of her and they will figure out a schedule between them to assist in taking care of pt's . SW explained that pt may get denied SNF if she wants to go to SNF. Pt again states, she will return home with HHC. Pt states her was set up with [facility] through [facility] and she prefers [facility] for her as well. SW updated pt that pt is medically ready for discharge today. Pt states understanding. LUIS ANGEL updated RN CM on referral for HHC and [facility] for HHC. Plan: Home with HHC today [facility] [employer], [employer]
[2020-02-12 11:41] LABS: Bedside Glucose 332 mg/dL (70-110)
[2020-02-12 14:25] VITALS: BP 158/78; PULSE 80
[2020-02-12 14:27] VITALS: BP 158/78; PULSE 80; RESP 18; TEMP 37.2; O2SAT 97
== END 2020-02-12 15:05 | disposition home health service (06) ==
LOC: ED 21:21 → MS3 21:38
PROVIDERS: Nurse Practitioner Family; Admitting Provider Family Medicine; Emergency Provider Emergency Medicine; PCP Internal Medicine; Visit Provider Family Medicine
DX: S76.112A Strain of left quadriceps muscle, fascia and tendon, initial encounter (principal); S83.282A Other tear of lateral meniscus, current injury, left knee, initial encounter; W18.39XA Other fall on same level, initial encounter; Y93.89 Activity, other specified; Y92.009 Unspecified place in unspecified non-institutional (private) residence as the place of occurrence of the external cause; I10 Essential (primary) hypertension; E78.5 Hyperlipidemia, unspecified; E03.9 Hypothyroidism, unspecified; I25.10 Atherosclerotic heart disease of native coronary artery without angina pectoris; M47.812 Spondylosis without myelopathy or radiculopathy, cervical region; E11.9 Type 2 diabetes mellitus without complications; F32.9 Major depressive disorder, single episode, unspecified; Z79.899 Other long term (current) drug therapy; Z79.02 Long term (current) use of antithrombotics/antiplatelets
CPT/HCPCS: 36415; 73564; 73721; 80048; 81001; 82962; 85025; 85027; 87086; 87088; 96372; 97110; 97116; 97162; 97166; 97530; 97535; 99218; 99251; 99283; G0378; G0463

== ENCOUNTER → 2020-05-21 12:52 | Outpatient (CLI) | payer MEDICARE, SELFPAY ==
[2020-05-21 12:46] VITALS: BMI 18.9
--- NOTE | 2020-05-21 12:52 | RAD_ITS ---
STUDY: THORACOLUMBAR SPINE REASON FOR EXAM: Female, 79 years old. Scoliosis TECHNIQUE: AP and lateral views of the thoracolumbar spine COMPARISON: 03/01/2019 FINDINGS: There is an essentially stable dextroscoliosis apex at L1/2. Scoliotic curvature is approximately 27 degrees. Normal kyphosis in the thoracic spine. There is no demonstrated fracture or absent pedicle. No suspicious paraspinal mass, peripheral calcifications in the thoracic and abdominal aorta. RAD/Scoliosis 2 or 3 views IMPRESSION: Stable dextroscoliosis of approximately 27 degrees apex at L1/2 Electronically Signed: Evens Kate MD at 13:20 EDT , Service support ,
== END ==
PROVIDERS: PCP Internal Medicine; Referring Provider Orthopaedic Surgery; Visit Provider Orthopaedic Surgery
DX: M54.5 Low back pain (principal)
CPT/HCPCS: 72082

== ENCOUNTER → 2020-08-07 12:56 | Outpatient (CLI) | payer MEDICARE, SELFPAY ==
[2020-02-06 15:29] VITALS: BMI 19.4
[2020-07-16 09:29] VITALS: BMI 19.2
--- NOTE | 2020-08-07 12:56 | ECHOD_ITS ---
Reason For Study: PHTN Procedure This was a 2D Doppler, Color Flow transthoracic echocardiogram. The exam was of adequate technical quality. Exam performed in department. Left Ventricle Normal LV size. Left ventricular systolic function is normal. The estimated ejection fraction is 65 %. No regional wall motion abnormalities noted. Right Ventricle Normal RV size. Normal systolic function. Atria The left atrium is severely enlarged. The right atrium is moderately enlarged. No doppler evidence for ASD. Mitral Valve There is moderate mitral annular calcification. Extension of the mitral annular calcification onto the base of the posterior mitral valve leaflet. Mild diffuse mitral valve thickening. Equivocal mitral valve prolapse. Mild (1+) mitral valve insufficiency. Tricuspid Valve Normal tricuspid valve. Mild to moderate (1-2+) tricuspid valve insufficiency. Right ventricular systolic pressure estimated to be 42 mmHg. Aortic Valve Trisinus/trileaflet aortic valve. Mild diffuse aortic valve thickening. 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 Pulmonic Valve Normal pulmonic valve. Mild (1+) pulmonic valve insufficiency. Great Vessels Normal sized aortic root. Pericardium/Pleural Trivial pericardial effusion. There are no echocardiographic indications of cardiac tamponade. MMode/2D Measurements & Calculations LVIDd: 3.8 cm IVSd: 1.1 cm Ao root diam: 3.0 cm LVIDs: 1.9 cm LVPWd: 1.1 cm LA dimension: 4.4 cm RVDd: 3.0 cm FS: 48.1 % LAV(MOD-bp): 95.7 ml LA A4 area: 26.8 cm2 RA A4 area: 19.1 cm2 LAV(MOD-bp) Indexed: 65.0 ml/m2 LAV(MOD-sp2): 94.8 ml LAV(MOD-sp4): 94.5 ml Time Measurements MV dec time: 0.24 sec Doppler Measurements & Calculations MV E max juancarlos: 143.4 cm/sec Lat Peak E' Juancarlos: 5.1 cm/sec Med Peak E' Juancarlos: 5.8 cm/sec MV A max juancarlos: 79.3 cm/sec E/E' lat: 28.1 E/E' med: 24.7 MV E/A: 1.8 MV V2 max: 181.1 cm/sec MV P1/2t max juancarlos: 181.1 cm/sec Ao V2 max: 165.7 cm/sec MV max P.1 mmHg MV P1/2t: 62.7 msec Ao max P.0 mmHg MV V2 mean: 92.5 cm/sec MV dec slope: 845.7 cm/sec2 MV mean P.1 mmHg MVA(P1/2t): 3.5 cm2 MV V2 VTI: 40.8 cm LV V1 max: 109.5 cm/sec PA V2 max: 105.0 cm/sec TR max juancarlos: 311.4 cm/sec LV V1 max P.8 mmHg TR max P.8 mmHg Interpretation Summary Left ventricular systolic function is normal. The estimated ejection fraction is 65 %. The left atrium is severely enlarged. The right atrium is moderately enlarged. There is moderate mitral annular calcification. Extension of the mitral annular calcification onto the base of the posterior mitral valve leaflet. Mild diffuse mitral valve thickening. Equivocal mitral valve prolapse. Mild (1+) mitral valve insufficiency. Mild to moderate (1-2+) tricuspid valve insufficiency. Mild diffuse aortic valve thickening. 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 Mild (1+) pulmonic valve insufficiency. Trivial pericardial effusion. There are no echocardiographic indications of cardiac tamponade. Right ventricular systolic pressure estimated to be 42 mmHg. Transmitral diastolic flow velocities suggest diastolic dysfunction (pseudonormal pattern). Ordering Physician: Lyle Oconnell Referring Physician: Karla Bhagat M.D. Performed By: Ulysses Sifuentes RCS
== END ==
PROVIDERS: PCP Internal Medicine; Referring Provider Internal Medicine Cardiovascular Disease; Visit Provider Internal Medicine Cardiovascular Disease
DX: Z98.890 Other specified postprocedural states (principal)
CPT/HCPCS: 93306

== ENCOUNTER 2020-09-03 10:00 | Outpatient (RCR) | payer MEDICARE, SELFPAY ==
[2020-05-21 12:46] VITALS: BMI 18.9
[2020-07-16 09:29] VITALS: BMI 19.2
--- NOTE | 2020-07-19 11:06 | HP.PTEVAL_ITS ---
Patient's Visit Information ELLEN ESTRADA is a 79 year old F referred to Physical Therapy by Dr. Ana Alegria MD with a diagnosis of BACK PAIN WITH SCOLIOSIS,OSTEOPROSIS. Date of Evaluation: 07/19/20 Physical Therapist: Ede Tavera, PT, Cert MDT, OCS - Visit Plan Frequency: 2x /Week Duration: 8WEEKS Plan: PT INTERVENTIONS INTIALLY AQUATIC THERAPY DLS,STRENGTHENING UE/LE ,WB ACTIVITIES ,POSTURAL EX'S 2XWEEK FOR 4WEEKS THEN PROGRESS TO LAND BASED - Subjective This 79 y/o female presents to physical therapy with back pain with scoliosis /osteoprosis. Patient has had back pain with scoliosis for many years and h/o osteoprosis. [facility] severe hematoma left knee . Patient seen DR Sommer did discussed surgery but patient would rather do PT. Patinet has pain mainly lumbar pain symmtical.Patient has had series of scoliosis testing,x-rays. Aggraveting factors standing and extended walking,lifting. 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 Patient takes tramadol. Patient has been in PT in, past. H/O no compreesion frcatures.Denies parathesia/tingling. Bowel/bladder-. Coughing/sneezing -. Patient symptoms affects sleeping. Patient pain affects housework tasks and ADLS', Patient symtoms affects QOL,. 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 VOCATION: single - Objective POSTURE: foward posture ,thoracickyohosis scoliosis left ,right mod thoracic rotation hump,distended abdominal. GAIT: mild unsteady leans to left with scoliosis. NEURO: inact. PALAPTION: tender SI. MMT: quads/hams 4-/5,hip flexors 3+/5,hip abd 3+/5 ,ankle 4/5. LUMBAR ROM: flexion mod loss extension severe loss,side glides left mod right severe - Special Tests L/S Slump test left side: Negative L/S Slump test right side: Negative L/S Left Straight Leg Raise: Negative L/S Right Straight Leg Raise: Negative - Balance Scores Functional Gait Assessment Score: 13 % Disability: 56.6700 CATSIB Score (Max score 120 seconds): 85 - Goals Goal 1:: Patient to be I with HEP and land based WB ex's and aquatic program Goal Time Frame: 6-8 Weeks Goal 2:: Patient improve CATSIB by 5 points to improve gait Goal Time Frame: 6-8 Weeks Goal 3:: Patient to improve strength BLE by 1/2 grade to improve gait Goal Time Frame: 6-8 Weeks Goal 4:: Patient to improve functional gait assessment by 5points or > to improve gait. Goal Time Frame: 6-8 Weeks Goal 5:: Patient improve back owestry score by 5 points or > to improve QOL Goal Time Frame: 6-8 Weeks - Rehabilitation Potential Physical Therapy Diagnosis: This patient has thoracickyphosis scoliosis with h/o osteoprosis with pain,weakness,unstaedy gait h/o falls thus benifit from skilled PT Rehabilitation Potential: Good - Anticipated Interventions Patient/Client Instruction: Educate patient on: Condition, Plan of Care For the Purpose of:: To decrease pain, To increase ROM, To improve muscle performance and motor function, To improve ability to perform ADL's, To increase tolerance to activity/condition/position, To improve ability of physical actions for home/community/work/leisure, To improve health of tissue, To decrease soft tissue restriction, To increase flexibility/ROM, To improve ability to perform tasks related to life management Therapeutic Exercise to Include: Strength training, Endurance training, Balance training, Postural training, Flexibilty training, In an aquatic setting, Dynamic Lumbar Stabilization Comment: BLE UE/LE For the Purpose of:: To decrease pain, To improve muscle performance and motor function, To improve ability to perform ADL's, To increase tolerance to activity/condition/position, To improve ability of physical actions for home/community/work/leisure, To improve gait and locomotor functions, To increase flexibility/ROM, To improve endurance, To improve balance, To reduce risk of recurrence, To improve ability to perform tasks related to life management Thank you for the opportunity to evaluate your patient. For Medicare and Medicare HMO plans, please review the plan of care and approve it. It will need to be FAXED BACK to us at [phone] for Medicare purposes. For Medicare only, by signing this I certify the plan of care. Please let me know if there are questions or concerns regarding this plan of care. Physician Signature:__ Date:
--- NOTE | 2020-09-03 10:43 | HP.PTREVAL ---
Dr. Ana Alegria MD, It has been my pleasure to treat ELLEN ESTRADA over the last 2 visits for BACK PAIN WITH SCOLIOSIS,OSTEOPROSIS. Please see the progress note below for an update on the physical therapy plan of care! Subjective: Doing okay ,I wasnt feeling well last wk ,getting stronger. But wearing these masks I get SOB easy. Objective/Function: POSTURE: right thoracic -lumbar scoliosis scoliosis leans to left. GAIT: reciprocal with right side scoliosis. MMT: BUE 4/5 SHOULDWERS 3+/5,quads/hams 4/5 ,hip flexion 4-/5 ,ankle 4/5. LUMBAR ROM: flexion mod loss,extension severe loss Plan Plan: PT INTERVENTIONS 2 xweek for 4weeks DLS,STRENGTHENING UE/LE ,WB ACTIVITIES ,POSTURAL EX'S Goals Goal 1:: Patient to be I with HEP and land based WB ex's and aquatic program Goal Time Frame: 6-8 Weeks Goal Progress: Progressing Goal 2:: Patient improve CATSIB by 5 points to improve gait Goal Time Frame: 6-8 Weeks Goal Progress: Progressing Goal 3:: Patient to improve strength BLE by 1/2 grade to improve gait Goal Time Frame: 6-8 Weeks Goal Progress: Progressing Goal 4:: Patient to improve functional gait assessment by 5points or > to improve gait. Goal Time Frame: 6-8 Weeks Goal Progress: Progressing Goal 5:: Patient improve back owestry score by 5 points or > to improve QOL Goal Time Frame: 6-8 Weeks Goal Progress: Progressing Anticipated Interventions Patient/Client Instruction: Educate patient on: Condition, Plan of Care For the Purpose of:: To decrease pain, To increase ROM, To improve muscle performance and motor function, To improve ability to perform ADL's, To increase tolerance to activity/condition/position, To improve ability of physical actions for home/community/work/leisure, To improve health of tissue, To decrease soft tissue restriction, To increase flexibility/ROM, To improve ability to perform tasks related to life management Therapeutic Exercise to Include: Strength training, Endurance training, Balance training, Postural training, Flexibilty training, In an aquatic setting, Dynamic Lumbar Stabilization Comment: BLE UE/LE For the Purpose of:: To decrease pain, To improve muscle performance and motor function, To improve ability to perform ADL's, To increase tolerance to activity/condition/position, To improve ability of physical actions for home/community/work/leisure, To improve gait and locomotor functions, To increase flexibility/ROM, To improve endurance, To improve balance, To reduce risk of recurrence, To improve ability to perform tasks related to life management Please do not hesitate to contact me at [phone] by phone or if you have questions or concerns regarding this new plan of care! Sincerely, Ede Tavera, PT, Cert MDT, OCS
--- NOTE | 2020-12-04 11:11 | HP.PTDCSUM ---
It has been my pleasure to treat ELLEN ESTRADA referred by Dr. Ana Alegria MD, with the diagnosis of BACK PAIN WITH SCOLIOSIS,OSTEOPROSIS for a total of 2 visit(s). Discharge Date: Please see the following information for a summary of their discharge status. Subjective: Doing okay ,I wasnt feeling well last wk ,getting stronger. But wearing these masks I get SOB easy. Left Back Pain Intensity (Out of 10): 2 % Improvement: 40 Objective/Function: POSTURE: right thoracic -lumbar scoliosis scoliosis leans to left. GAIT: reciprocal with right side scoliosis. MMT: BUE 4/5 SHOULDWERS 3+/5,quads/hams 4/5 ,hip flexion 4-/5 ,ankle 4/5. LUMBAR ROM: flexion mod loss,extension severe loss Goal 1:: Patient to be I with HEP and land based WB ex's and aquatic program Goal Progress: Progressing Goal 2:: Patient improve CATSIB by 5 points to improve gait Goal Progress: Progressing Goal 3:: Patient to improve strength BLE by 1/2 grade to improve gait Goal Progress: Progressing Goal 4:: Patient to improve functional gait assessment by 5points or > to improve gait. Goal Progress: Progressing Goal 5:: Patient improve back owestry score by 5 points or > to improve QOL Goal Progress: Progressing Plan: d/c If there are questions or concerns regarding this patient's physical therapy, please feel free to call me at [phone]. Thank you for the referral of this patient. Sincerely, Ede Tavera, PT, Cert MDT, OCS
== END 2020-09-03 19:00 | disposition home or self-care (01) ==
LOC: PT 10:00
PROVIDERS: PCP Internal Medicine; Referring Provider Orthopaedic Surgery; Visit Provider Orthopaedic Surgery
DX: M41.9 Scoliosis, unspecified (principal); M81.0 Age-related osteoporosis without current pathological fracture
CPT/HCPCS: 97110; 97162

== ENCOUNTER → 2020-09-23 13:06 | Outpatient (CLI) | payer MEDICARE, SELFPAY ==
[2020-07-16 09:29] VITALS: BMI 19.2
--- NOTE | 2020-09-23 13:07 | CDU_ITS ---
Reason For Study: Carotid stenosis Rt. Velocities/BP Lt. Velocities/BP Prox CCA 79.9/14.7 cm/sec. Prox CCA 147.7/13.8 cm/sec. Mid CCA 86.5/16 cm/sec. Mid CCA 158.7/16 cm/sec. Dist CCA 89.1/13.4 cm/sec. Dist CCA 141.1/11.6 cm/sec. Prox ICA 354.1/43.2 cm/sec. Prox ICA 156.3/18.9 cm/sec. Mid ICA 178.8/23.6 cm/sec. Mid ICA 99.2/18.8 cm/sec. Dist ICA 101.8/18.9 cm/sec. Dist ICA 95.5/18.8 cm/sec. Rt. ICA/CCA = 4.1. Lt. ICA/CCA = 1.1. Prox ECA 396.1 cm/sec. Prox ECA 252.2 cm/sec. Rt. Vert. 79.1 cm/sec. Lt. Vert. 69.5/13.5 cm/sec. Right Extracranial There is homogeneous, smooth atherosclerotic plaque noted in the right common carotid artery. There is homogeneous, irregular atherosclerotic plaque noted in the right internal carotid artery. There is homogeneous, irregular atherosclerotic plaque noted in the right external carotid artery. The atherosclerotic plaque causes acoustic shadowing. Antegrade flow is noted in the right vertebral artery. Left Extracranial There is homogeneous, smooth atherosclerotic plaque noted in the left common carotid artery. There is heterogeneous, irregular atherosclerotic plaque noted in the left internal carotid artery. There is heterogeneous, irregular atherosclerotic plaque noted in the left external carotid artery. Antegrade flow is noted in the left vertebral artery. Procedure Carotid Duplex 10202. This is a Carotid Duplex examination using B-mode, color flow and specral Doppler. Exam performed in department. Interpretation Summary Irregular calcific plaque with shadowing at the proximal right internal carotid with greater than 70% stenosis. >50% stenosis right external carotid Irregular calcific plaque at the proximal left internal carotid with 50 to 69% stenosis. >50% stenosis left external carotid Patent and antegrade vertebrals bilaterally Progression of disease bilateral internal carotids noted from the previous exam of September 14, 2019. Ordering Physician: Enmanuel Matthews Referring Physician: Karla Bhagat M.D. Performed By: Jess Keith RVT
== END ==
PROVIDERS: PCP Internal Medicine; Referring Provider Surgery; Visit Provider Surgery
DX: I65.23 Occlusion and stenosis of bilateral carotid arteries (principal)
CPT/HCPCS: 93880

== ENCOUNTER → 2020-11-07 07:56 | Outpatient (CLI) | payer MEDICARE, SELFPAY ==
[2020-07-16 09:29] VITALS: BMI 19.2
[2020-10-30 16:05] VITALS: BMI 19.8
--- NOTE | 2020-11-07 08:00 | CT_ITS ---
STUDY: CT ABDOMEN AND PELVIS WITHOUT CONTRAST REASON FOR EXAM: Female, 80 years old. ABD PAIN/DIARRHEA/CONSTIPATION RADIATION DOSAGE (If Supplied By Facility): CTDIvol = ( 6.04 ) mGy, DLP = ( 271.80 ) mGycm TECHNIQUE: Transaxial images were obtained from the dome of the diaphragm to the symphysis pubis without oral contrast, and without intravenous contrast. Sagittal and coronal images were reconstructed. Limited evaluation due to lack of oral and intravenous contrast administration. Individualized dose optimization techniques were used for this CT. COMPARISON: Comparison is made with prior study dated 10/27/2016. FINDINGS: Minimal linear scarring at the lung bases. Coronary artery calcification. Hepatomegaly. A normal-appearing gallbladder is not seen. Correlation with ultrasound is recommended. There is mild splenomegaly. Normal pancreas. Normal bilateral adrenal glands. Normal right kidney. Normal left kidney. Normal visualized stomach. Normal small intestine. Normal colon. The appendix is visualized and appears normal. Normal abdominal aorta. Normal inferior vena cava. Normal retroperitoneum. Normal urinary bladder. Calcified fibroid uterus. Normal abdominal wall. Severe degree of dextroscoliosis. CT/Abdomen/Pelvis without Cont IMPRESSION: Limited examination. Hepatosplenomegaly. Electronically Signed: Holland Ferreira, at 10:07 EST , Service support ,
--- NOTE | 2020-11-07 08:00 | CT_ITS ---
STUDY: CTA NECK WITH CONTRAST REASON FOR EXAM: Female, 80 years old. CAROTID STENOSIS RADIATION DOSAGE (If Supplied By Facility): CTDIvol = ( 6.63 ) mGy, DLP = ( 225.11 ) mGycm TECHNIQUE: CT angiography with multi-detector data acquisition was performed from the aortic arch to the skull base following intravenous administration of IV 100mL Isovue-370. MIP images were reconstructed from the axial data set. Post-processing of the angiographic images was performed, with multiplanar reformation and 3D reconstruction. Individualized dose optimization techniques were used for this CT. COMPARISON: None. FINDINGS: 6.3 mm hypodense nodule in the left lobe of the thyroid. AORTIC ARCH: There is atherosclerotic calcific plaque formation of the aortic arch and great vessels arising from the aortic arch, without a hemodynamically significant stenosis. There is a normal origin of the brachiocephalic, left common carotid, and left subclavian arteries. RIGHT CAROTID ARTERIES: Normal right common carotid artery (CCA). Normal right common carotid bulb. There is extensive atherosclerotic plaque formation of the origin of the right internal carotid artery with an estimated stenosis of greater than 70%. Normal visualized cervical portion of the right internal carotid artery. Normal origin of the right external carotid artery (ECA). LEFT CAROTID ARTERIES: Normal left common carotid artery (CCA). Normal left common carotid bulb. There is mild atherosclerotic plaque formation of the origin of the left internal carotid artery with less than 50% cross sectional diameter stenosis. Normal visualized cervical portion of the left internal carotid artery. Normal origin of the left external carotid artery (ECA). VERTEBRAL ARTERIES: There is enhancement within the bilateral vertebral arteries with a small right vertebral artery, and a dominant left vertebral artery. CT/CTA Neck W/WO Contrast IMPRESSION: Greater than 70% stenosis at the origin of the right internal carotid artery due to atherosclerotic plaque formation. Electronically Signed: Holland Ferreira, at 10:10 EST , Service support ,
[2020-11-07 08:30] LABS: CREATININE FINGERSTICK 0.9 mg/dL (0.55-1.02); EGFR FINGERSTICK > 60.0000 mL/min (>60)
== END ==
PROVIDERS: PCP Internal Medicine; Referring Provider Surgery; Visit Provider Surgery
DX: I65.23 Occlusion and stenosis of bilateral carotid arteries (principal); R10.9 Unspecified abdominal pain; K59.00 Constipation, unspecified
CPT/HCPCS: 70498; 74176; Q9967

== ENCOUNTER → 2020-11-14 12:14 | Outpatient (CLI) | payer MEDICARE, SELFPAY ==
[2020-07-16 09:29] VITALS: BMI 19.2
[2020-10-30 16:05] VITALS: BMI 19.8
--- NOTE | 2020-11-14 12:16 | BI_ITS ---
MAMMOGRAPHY - BILATERAL SCREENING REASON FOR EXAM: Female, 80 years old. Routine annual screening examination. PERTINENT HISTORY: Mother with breast cancer. Aunt with breast cancer. TECHNIQUE: Digital bilateral breast merrill (3D mammographic acquisition) in the CC and MLO projections. 2-D mediolateral oblique (MLO) and craniocaudad (CC) views of both breasts were obtained. CAD: Full Field Digital Mammography with Computer Added Detection was performed. COMPARISON: Comparison is made with prior study dated 05/18/2019 and 08/30/2014. FINDINGS: Breast Composition: The breasts are heterogeneously dense, which may obscure small masses. There are no dominant masses or suspicious calcifications. No other significant abnormalities are identified. There has been no significant change since the prior study. BI/SCREEN MAMM (CAD) W/MERRILL BILAT IMPRESSION: Stable bilateral screening mammogram. Yearly follow-up mammogram recommended. (A) ASSESSMENT CATEGORY: BIRADS Category 1: Negative. A letter regarding these results will be sent to the patient by the facility within 30 days. Approximately 10% of breast cancers are not detected by mammography. A normal mammogram should not delay biopsy of a clinically suspicious abnormality. [id number] Electronically Signed: Holland Ferreira, at 13:27 EST , Service support ,
== END ==
PROVIDERS: PCP Internal Medicine; Referring Provider Internal Medicine; Visit Provider Internal Medicine
DX: Z12.31 Encounter for screening mammogram for malignant neoplasm of breast (principal)
CPT/HCPCS: 77063; 77067

== ENCOUNTER → 2021-06-06 15:30 | Outpatient (CLI) | payer MEDICARE, SELFPAY ==
[2021-04-30 10:41] VITALS: BMI 19.8
--- NOTE | 2021-06-06 15:33 | CT_ITS ---
[employer]Script[employer] Unformatted Report Format: Options: n 2f 2i act cap dr de anda wm wcta sl lj Gender: Female : 1940 Exam: CT Head or Brain W/O Contrast Injection Comparison: 04/27/2019 History: HEAD TRAUMA Contrast: There is hypoattenuation in the periventricular white matter. Impression. No acute intracranial abnormality. There has been no change from the reference exam. Impression. Periventricular hypoattenuation compatible with small vessel ischemia. Individualized dose optimization techniques were used for this CT. at 1557 Reported and signed by: Alex Sanders MD Electronically Signed: Alex Sanders MD at 15:56 EDT Tel , Service support , CT/Brain/Head without Contrast
== END ==
PROVIDERS: PCP Internal Medicine; Referring Provider Internal Medicine; Visit Provider Internal Medicine
DX: S09.90XA Unspecified injury of head, initial encounter (principal)
CPT/HCPCS: 70450

== ENCOUNTER 2021-06-16 14:57 | Outpatient (RCR) | payer MEDICARE, SELFPAY ==
[2021-04-30 10:41] VITALS: BMI 19.8
== END 2021-06-28 23:59 ==
LOC: DC 14:57
PROVIDERS: PCP Internal Medicine; Visit Provider Internal Medicine
DX: E11.9 Type 2 diabetes mellitus without complications (principal)
CPT/HCPCS: 97802

== ENCOUNTER 2021-07-22 10:27 | Outpatient (RCR) | payer MEDICARE, SELFPAY ==
[2021-04-30 10:41] VITALS: BMI 19.8
== END 2021-07-29 23:59 ==
LOC: DC 10:27
PROVIDERS: PCP Internal Medicine; Visit Provider Internal Medicine
DX: E11.9 Type 2 diabetes mellitus without complications (principal)
CPT/HCPCS: G0270

== ENCOUNTER 2021-08-20 11:00 | Outpatient (RCR) | payer MEDICARE, SELFPAY ==
[2021-07-30 00:39] VITALS: BMI 19.8
== END 2021-08-28 23:59 ==
LOC: DC 11:00
PROVIDERS: PCP Internal Medicine; Visit Provider Internal Medicine
DX: E11.9 Type 2 diabetes mellitus without complications (principal)
CPT/HCPCS: 97803; G0108

== ENCOUNTER 2021-09-03 12:00 | Outpatient (RCR) | payer MEDICARE, SELFPAY ==
[2021-08-29 00:30] VITALS: BMI 19.8
== END 2021-09-28 23:59 ==
LOC: DC 12:00
PROVIDERS: PCP Internal Medicine; Visit Provider Internal Medicine
DX: E11.9 Type 2 diabetes mellitus without complications (principal)
CPT/HCPCS: 97803

== ENCOUNTER 2021-09-20 13:55 | Inpatient (IN) | payer MEDICARE, SELFPAY ==
[2021-09-20] VITALS (11 sets, daily range): BP systolic 136–156; BP diastolic 55–91; PULSE 64–85; RESP 14–22; TEMP 36.7–37.3; O2SAT 87–99; BMI 20.4; BMI 19.9
--- NOTE | 2021-09-20 13:58 | EKG12_ITS ---
Test Reason : CP Blood Pressure : / mmHG Vent. Rate : 081 BPM Atrial Rate : 081 BPM P-R Int : 172 ms QRS Dur : 084 ms QT Int : 394 ms P-R-T Axes : 055 025 005 degrees QTc Int : 457 ms Sinus rhythm with Premature supraventricular complexes Septal infarct , age undetermined Abnormal ECG Confirmed by NIDHI JOLLY, LAINE ([id number]), editor in chief CELESTE RODRIGUEZ ([id number]) on 09/23/2021 8:52:49 AM Referred By: SOPHY Confirmed By:LAINE TERRELL MD
--- NOTE | 2021-09-20 13:58 | RAD_ITS ---
HISTORY: chest pain. TECHNIQUE: XR Chest 1 View. # of images incl. paperwork: 1. COMPARISON: 12/08/2018. FINDINGS: CARDIOMEDIASTINAL STRUCTURES: Cardiac silhouette again enlarged. Mediastinal contour unchanged with calcification of the aorta. LUNGS: New opacities in the left upper and midlung. Mild opacity in the right lung base. PLEURA: Mild right pleural thickening or loculation. OSSEOUS STRUCTURES: Degenerative change with marked scoliosis. RAD/Chest 1 View (Portable) IMPRESSION: Multifocal opacities concerning for pneumonia. Recommend follow-up to resolution. at 1429 Reported and signed by: Margie Garrett MD Electronically Signed: Margie Garrett MD at 14:28 EDT Tel , Service support ,
[2021-09-20 14:35] LABS: Absolute Lymphocyte Count 0.45 X10^3/uL (0.83-4.51); Basophil# 0.04 X10^3/uL; Basophil% 0.4 % (0-1); Hematocrit 35.1 % (37-47); Hemoglobin 11.8 g/dL (12.0-15.0); Lymphocyte # 0.45 X10^3/ul (0.83-4.51); Lymphocyte % 4.7 % (19-41); Mean Corp Hgb Conc 33.6 g/dL (32-36); Mean Corpuscular Hgb 28.6 pg (27.0-32.0); Mean Corpuscular Volume 85.2 fL (81-99); Mean Platelet Vol. 9.9 fl (6.2-12.0); Monocyte# 1.06 X10^3/uL; Monocyte% 11.1 % (0-10); NRBC Flagged by Analyzer 0 % (0-5); Neutrophil # 7.97 X10^3/uL (2.7-7.7); Neutrophil % 83.1 % (47-70); POSITIVE DIFFERENTIAL YES; Platelet Count 160 K/mm3 (150-450); RBC Distribution Width CV 14.1 % (11.6-14.6); RBC Distribution Width SD 43.5 fl (35.1-43.9); Red Blood Count 4.12 M/mm3 (4.2-5.4); White Blood Count 9.6 K/mm3 (4.4-11.0)
[2021-09-20 14:43] LABS: International Normalized Ratio 1.2; Prothrombin Time (Protime)PT. 14.9 SECONDS (11.7-14.9)
--- NOTE | 2021-09-20 14:43 | EX.ED.DYSGE1 ---
HPI History of Present Illness Chief Complaint: Fever Informant: patient Narrative Narrative: [age]-year-old female presenting to the emergency room with fever and chest pain. Patient states that yesterday she felt poorly. She noted a fever of 100.7 and again today. During the night last night she began to feel a tightness in her chest developed cough bloody nose and diarrhea. She is Covid vaccinated. She recently returned home on an airplane from a trip to see family. Patient denies any nausea or vomiting. No headache or myalgias. She feels fatigued [facility] Medical History (Updated 09/20/21 @ 17:[address] Lyle Dillon, DO) Bilateral carotid bruits Carotid artery stenosis Carotid stenosis, bilateral Chronic constipation Depression Diabetes mellitus Dizziness Essential hypertension Hyperlipidemia Hypothyroidism Valvular heart disease Home Medications sennosides 8.6 mg tablet 8.6 mg PO DAILY PRN 09/14/19 [History Last Taken 02/06/20] Synthroid 88 mcg tablet 88 mcg PO DAILY #90 tab NS 07/16/20 [Rx Last Taken Unknown] losartan 100 mg tablet 100 mg PO DAILY #90 tab 07/16/20 [Rx Last Taken Unknown] rosuvastatin 5 mg tablet 5 mg PO DAILY tab 10/21/20 [History Last Taken Unknown] cholecalciferol (vitamin D3) 125 mcg (5,000 unit) capsule 125 mcg PO DAILY 10/30/20 [History Last Taken Unknown] clopidogrel 75 mg tablet 75 mg PO DAILY tab 10/30/20 [History Last Taken Unknown] omega-3 fatty acids 1,000 mg capsule 1,000 mg PO DAILY 10/30/20 [History Last Taken Unknown] venlafaxine 75 mg tablet 75 mg PO DAILY 10/30/20 [History Last Taken Unknown] amlodipine 5 mg tablet 5 mg PO QHS #1 tab 04/30/21 [Rx Last Taken Unknown] biotin 10,000 mcg capsule 10,000 mcg PO DAILY cap 04/30/21 [History Last Taken Unknown] glipizide 5 mg tablet 5 mg PO DAILY 04/30/21 [History Last Taken Unknown] hydralazine 25 mg tablet 25 mg PO TID 04/30/21 [History Last Taken Unknown] sitagliptin 100 mg tablet 100 mg PO DAILY 04/30/21 [History Last Taken Unknown] tramadol 50 mg tablet 50 mg PO TID PRN 04/30/21 [History Last Taken Unknown] Allergy/AdvReac Type Severity Reaction Status Date / Time metformin Allergy Severe Rash Verified 09/20/21 14:49 neomycin [Neomycin] Allergy Severe Unknown Verified 09/20/21 14:49 Tetracyclines Allergy Severe Anaphylaxis Verified 09/20/21 14:49 Sulfa (Sulfonamide Allergy Unknown Verified 09/20/21 14:49 Antibiotics) Surgical History History of foot surgery History of left heart catheterization (12/28/14) History of thyroidectomy History of tonsillectomy and adenoidectomy Social History Smoking Status: Former smoker alcohol intake: current alcohol intake frequency: a few times a week Alcohol type: wine substance use type: does not use caffeine: Yes Type: coffee Number of servings: 1 ROS ROS ED ROS Narrative Generalized fatigue Constitutional Constitutional ED: Reports fever(s); Denies chills or weight loss Eyes Eyes: Denies change in vision or diplopia ENT ENT ED: Reports other Details: Epistaxis ; Denies ear pain, rhinorrhea or sore throat Cardiovascular Cardiovascular: Reports chest pain; Denies orthopnea, palpitations or racing heartbeat Respiratory/Chest Respiratory/Chest: Reports cough and dyspnea; Denies orthopnea Gastrointestinal Gastrointestinal: Reports diarrhea; Denies abdominal pain, nausea or vomiting Genitourinary Genitourinary ED: Denies dysuria, hematuria or urinary frequency Musculoskeletal Musculoskeletal: Denies arthralgias or myalgias Integumentary Denies abscess or rash Neurologic Neurologic: Denies headache(s) or weakness Psychiatric Psychiatric: Denies anxiety, depression, suicidal ideation or suicidal thoughts Endocrine Endocrinology: Denies polydipsia, polyphagia or polyuria Allergic/Immunologic Allergic/Immunologic ED: Denies mouth swelling, tongue swelling or urticaria EXAM Physical Exam Const Vital Signs: 09/20/21 13:56 09/20/21 14:44 09/20/21 15:32 Temperature 98.4 F Temperature Source Oral Pulse Rate 85 77 Respiratory Rate 22 H 19 H Respiratory Effort Normal Blood Pressure 148/60 H 143/80 H Blood Pressure Mean 89 101 Pulse Ox 94 96 Oxygen Delivery Method Room Air Nasal Cannula Oxygen Flow Rate (L/min) 4 09/20/21 17:47 Temperature 99.1 F Temperature Source Oral Pulse Rate 64 Respiratory Rate 14 Respiratory Effort Blood Pressure 152/72 H Blood Pressure Mean 98 Pulse Ox 96 Oxygen Delivery Method Nasal Cannula Oxygen Flow Rate (L/min) 4 Positive well nourished and well developed General Appearance ED: well developed HEENT Reports normocephalic, head/scalp atraumatic and moist mucous membranes Eyes PERRL and EOMs intact bilaterally Neck no lymphadenopathy, supple and no JVD Resp normal respiratory effort and clear to auscultation bilaterally Cardio regular rate, regular rhythm and no murmurs GI normal to inspection, nondistended, normoactive bowel sounds and non-tender Palpation: soft Back/Spine no CVA tenderness and normal ROM Back/Spine Narrative: Scoliotic back Extremity normal to inspection General Extremety ED: Negative for edema General Extremity: Negative for edema Neuro oriented x3 and CN's II-XII intact bilaterally Sensorium / Orientation: alert Motor Exam: strength 5/5 throughout Psych mental status grossly normal Mood & Affect: Negative for depressed or tearful Skin no rashes or lesions noted and no wounds MDM MDM MDM Narrative Medical decision making narrative: Patient's white blood cell count is 9.6. INR 1.2. BMP showed a glucose of 242 BUN 26 creatinine 0.79. Troponin 47 D-dimer is significantly elevated at 3.41. Slight elevation of the transaminases. Patient received some albuterol MDI. Her rapid Covid came back negative and Covid PCR is also negative. Chest x-ray was concerning for multifocal areas of infiltrate. Because elevated D-dimer CTA was ordered which demonstrates bibasilar infiltrates versus atelectasis with small pleural effusions. The patient's oxygen level decreased to 87 while at rest with good waveform. She was placed on supplemental oxygen. Patient received a DuoNeb Rocephin and azithromycin. Plan will be for admission Lab Data Attestation: I reviewed the patient's lab results. Labs: Laboratory Results - last 24 hr 09/20/21 09/20/21 09/20/21 14:26 14:26 14:26 WBC 9.6 RBC 4.12 L Hgb 11.8 L Hct 35.1 L MCV 85.2 MCH 28.6 MCHC 33.6 RDW Std Deviation 43.5 RDW Coeff of Obed 14.1 Plt Count 160 MPV 9.9 Immature Gran % (Auto) 0.700 Neut % (Auto) 83.1 H Lymph % (Auto) 4.7 L Rhea % (Auto) 11.1 H Eos % (Auto) 0.0 Baso % (Auto) 0.4 Absolute Neuts (auto) 8.0 H Absolute Lymphs (auto) 0.45 L Nucleated RBC % 0 Differential Comment SCANNED Reactive Lymphocytes 2+ PT 14.9 INR 1.2 D-Dimer Quant (PE/DVT) Sodium 130 L Potassium 3.9 Chloride 97 L Carbon Dioxide 24.0 Anion Gap 9 BUN 26 H Creatinine 0.79 Estim Creat Clear Calc 33.71 Est GFR (MDRD) Af Amer 89 Est GFR (MDRD) Non-Af 74 BUN/Creatinine Ratio 32.8 H Glucose 242 H Calcium 9.4 Total Bilirubin Direct Bilirubin AST ALT Alkaline Phosphatase Troponin I High Sens 47 Total Protein Albumin Globulin COVID-19 ([facility]REA) 09/20/21 09/20/21 09/20/21 14:26 14:26 15:05 WBC RBC Hgb Hct MCV MCH MCHC RDW Std Deviation RDW Coeff of Obed Plt Count MPV Immature Gran % (Auto) Neut % (Auto) Lymph % (Auto) Rhea % (Auto) Eos % (Auto) Baso % (Auto) Absolute Neuts (auto) Absolute Lymphs (auto) Nucleated RBC % Differential Comment Reactive Lymphocytes PT INR D-Dimer Quant (PE/DVT) 3.41 H* Sodium Potassium Chloride Carbon Dioxide Anion Gap BUN Creatinine Estim Creat Clear Calc Est GFR (MDRD) Af Amer Est GFR (MDRD) Non-Af BUN/Creatinine Ratio Glucose Calcium Total Bilirubin 1.70 H Direct Bilirubin 0.54 H AST 61 H ALT 78 H Alkaline Phosphatase 116 Troponin I High Sens Total Protein 6.5 Albumin 3.2 Globulin 3.3 COVID-19 ([facility]REA) Not Detected Radiography Diagnostic Testing: Clinical Impression(s) from Imaging Studies Chest X-Ray 09/20/21 13:58 IMPRESSION: Multifocal opacities concerning for pneumonia. Recommend follow-up to resolution. at 1429 Reported and signed by: Margie Garrett MD Electronically Signed: Margie Garrett MD at 14:28 EDT Tel , Service support , Chest CTA 09/20/21 16:19 IMPRESSION: 1. No central or segmental pulmonary embolism. 2. Bilateral lower lobe peribronchial infiltrates may represent atelectasis versus pneumonia. No cavitating process. 3. Small bilateral pleural effusions. Electronically Signed: Sergei Bhardwaj MD ([place]) at 17:20 EDT , Service support , EKG Initial EKG: Attestation: I personally reviewed and interpreted this EKG as follows: Comments: Sinus rhythm with a ventricular rate of 81 bpm Discharge Plan Dx/Rx/DC Orders Clinical Impression: Pneumonia, Acute hypoxemic respiratory failure Disposition Disposition: Acute Care [facility]
[2021-09-20 14:46] LABS: Differential Indicated SCAN CRITERIA MET
[2021-09-20 14:54] LABS: Anion Gap 9 (5-15); BUN 26 mg/dL (7-18); BUN/Creat Ratio 32.8 RATIO (10-20); Calcium,Total 9.4 mg/dL (8.5-10.1); Chloride 97 mmol/L (98-107); Creatinine, Serum 0.79 mg/dL (0.55-1.02); EST Glomerular Filtration Rate 74 mL/min (>60); Est Glom Filt Rate - Afr Amer 89 mL/min (>60); Estimated Creatinine Clearance 33.71 ml/min; Glucose 242 mg/dL (74-106); Potassium 3.9 mmol/L (3.5-5.1); Sodium Level 130 mmol/L (136-145); Troponin-I HS 47 pg/mL (3.0-54.0)
[2021-09-20 15:01] LABS: Differential Comment SCANNED; Reactive Lymphocyte 2+
[2021-09-20 15:04] LABS: AST(SGOT) 61 U/L (15-37); Alanine Aminotransfer ALT/SGPT 78 U/L (13-56); Albumin, Serum 3.2 g/dL (3.2-5.0); Alkaline Phosphatase 116 U/L (45-117); Bilirubin, Direct 0.54 mg/dL (0.00-0.30); Globulin 3.3 g/dL (2.2-4.2); Protein, Total 6.5 g/dL (6.4-8.2)
[2021-09-20] MEDS: INHALER, ASSIST DEVICES 1 EACH SPACER INHALATION (15:14)
[2021-09-20 15:57] LABS: D-Dimer Quantitative (DVT/PE) 3.41 FEU/ug/m (0.27-0.49)
--- NOTE | 2021-09-20 16:19 | CT_ITS ---
EXAM: CT ANGIOGRAPHY CHEST WITHOUT AND WITH INTRAVENOUS CONTRAST CLINICAL INDICATION: Shortness of breath TECHNIQUE: Helically acquired angiography images were obtained of the chest without and with intravenous contrast. This CT exam was performed using one or more of the following dose reduction techniques: automated exposure control, adjustment of the mA and/or kV according to patient size, and/or use of iterative reconstruction technique. This report was created using i[employer] report generation technology. MIP reconstructed images were created and reviewed. CONTRAST: IV 75mL [id number] COMPARISON: CT 11/07/2020 FINDINGS: PULMONARY ARTERIES: Unremarkable. Normal in caliber. No evidence of pulmonary embolism. AORTA: Atherosclerosis. Normal in caliber. No evidence of dissection. GREAT VESSELS OF AORTIC ARCH: Unremarkable. Normal in caliber. No evidence of dissection. LUNGS AND PLEURAL SPACES: Small bilateral pleural effusions. Peribronchial consolidation of the bilateral lower lobes. Pneumonia versus atelectasis. Chronic fibrotic changes throughout the lungs. Bronchiectasis. No mass. HEART: Stable cardiomegaly. No pericardial effusion. No signs of right heart strain, ratio of right ventricle to left ventricle measures less than 1. MEDIASTINUM: Unremarkable. No mediastinal or hilar adenopathy. Esophagus is unremarkable. No hiatal hernia. THYROID: Unremarkable. No thyroid lesions. BONES/JOINTS: Severe scoliosis of the thoracolumbar spine. Multilevel degenerative changes of the thoracic spine. No suspicious lytic or blastic abnormality. LIVER: Enlargement of the left hepatic lobe is not substantially changed since prior abdomen/pelvis CT. CT/CTA Chest W/WO Contrast IMPRESSION: 1. No central or segmental pulmonary embolism. 2. Bilateral lower lobe peribronchial infiltrates may represent atelectasis versus pneumonia. No cavitating process. 3. Small bilateral pleural effusions. Electronically Signed: Sergei Bhardwaj MD ([place]) at 17:20 EDT , Service support ,
--- NOTE | 2021-09-20 18:09 | PCM.HP.STD ---
Documented by User: Pat Santiago NP, [employer] 09/20/21 18:18 HPI - General General Date of Admission: 09/20/21 HPI Narrative MICHELLE REDMAN, is a 81 F who presents to the emergency room due to shortness of breath and fever. Patient reports this began yesterday morning. She also reports fatigue and diarrhea. She states she took a Covid test at home yesterday due to recent travel which was negative. She reports recent plane travel from [place]. She denies significant cough. Denies sore throat, change in taste/smell. She is fully vaccinated for Covid. Patient denies other symptoms or complaints. She has a past medical history of right carotid artery disease, type 2 diabetes mellitus, hypertension, hypothyroidism, depression. [facility] Medical History Bilateral carotid bruits Carotid artery stenosis Carotid stenosis, bilateral Chronic constipation Depression Diabetes mellitus Dizziness Essential hypertension Hyperlipidemia Hypothyroidism Valvular heart disease Home Medications sennosides 8.6 mg tablet 8.6 mg PO DAILY PRN 09/14/19 [History Last Taken 02/06/20] Synthroid 88 mcg tablet 88 mcg PO DAILY #90 tab NS 07/16/20 [Rx Last Taken Unknown] losartan 100 mg tablet 100 mg PO DAILY #90 tab 07/16/20 [Rx Last Taken Unknown] rosuvastatin 5 mg tablet 5 mg PO DAILY tab 10/21/20 [History Last Taken Unknown] cholecalciferol (vitamin D3) 125 mcg (5,000 unit) capsule 125 mcg PO DAILY 10/30/20 [History Last Taken Unknown] clopidogrel 75 mg tablet 75 mg PO DAILY tab 10/30/20 [History Last Taken Unknown] omega-3 fatty acids 1,000 mg capsule 1,000 mg PO DAILY 10/30/20 [History Last Taken Unknown] venlafaxine 75 mg tablet 75 mg PO DAILY 10/30/20 [History Last Taken Unknown] amlodipine 5 mg tablet 5 mg PO QHS #1 tab 04/30/21 [Rx Last Taken Unknown] biotin 10,000 mcg capsule 10,000 mcg PO DAILY cap 04/30/21 [History Last Taken Unknown] glipizide 5 mg tablet 5 mg PO DAILY 04/30/21 [History Last Taken Unknown] hydralazine 25 mg tablet 25 mg PO TID 04/30/21 [History Last Taken Unknown] sitagliptin 100 mg tablet 100 mg PO DAILY 04/30/21 [History Last Taken Unknown] tramadol 50 mg tablet 50 mg PO TID PRN 04/30/21 [History Last Taken Unknown] Allergy/AdvReac Type Severity Reaction Status Date / Time metformin Allergy Severe Rash Verified 09/20/21 14:49 neomycin [Neomycin] Allergy Severe Unknown Verified 09/20/21 14:49 Tetracyclines Allergy Severe Anaphylaxis Verified 09/20/21 14:49 Sulfa (Sulfonamide Allergy Unknown Verified 09/20/21 14:49 Antibiotics) Family History Mother Thyroid disorder Father Alzheimer disease Surgical History History of foot surgery History of left heart catheterization (12/28/14) History of thyroidectomy History of tonsillectomy and adenoidectomy Social History Smoking Status: Former smoker alcohol intake: current alcohol intake frequency: a few times a week Alcohol type: wine substance use type: does not use caffeine: Yes Type: coffee Number of servings: 1 ROS Constitutional Constitutional: Reports chills, fatigue, fever(s) and malaise; Denies change in weight or weakness Cardiovascular Cardiovascular: Denies chest pain, edema, lightheadedness, palpitations or syncope Respiratory/Chest Respiratory/Chest: Reports dyspnea; Denies cough or wheezing Gastrointestinal Gastrointestinal: Reports diarrhea; Denies abdominal pain, constipation, nausea or vomiting Genitourinary Genitourinary: Denies burning urination, difficulty urinating, dysuria, hematuria, urinary frequency, urinary incontinence or urinary urgency Musculoskeletal Musculoskeletal: Denies back pain, joint pain or muscle weakness Integumentary Integumentary: Denies erythema, lesions, rash or wounds Neurologic Neurologic: Denies abnormal speech, confusion, dizziness, focal weakness, numbness, paresthesias, seizure-like activity or syncope Psychiatric Psychiatric: Denies anxiety or depression Hematologic/Lymphatic Hematologic/Lymphatic: Denies anemia, easy bleeding or easy bruising Allergic/Immunologic Allergic/Immunologic: Denies hives or asthma Vital Signs Vital Signs Vital Signs: 09/20/21 13:56 09/20/21 14:44 09/20/21 15:32 Temperature 98.4 F Temperature Source Oral Pulse Rate 85 77 Respiratory Rate 22 H 19 H Respiratory Effort Normal Blood Pressure 148/60 H 143/80 H Blood Pressure Mean 89 101 Pulse Ox 94 96 Oxygen Delivery Method Room Air Nasal Cannula Oxygen Flow Rate (L/min) 4 09/20/21 17:47 Temperature 99.1 F Temperature Source Oral Pulse Rate 64 Respiratory Rate 14 Respiratory Effort Blood Pressure 152/72 H Blood Pressure Mean 98 Pulse Ox 96 Oxygen Delivery Method Nasal Cannula Oxygen Flow Rate (L/min) 4 Weight Weight: 111 lb 11.2 oz Body Mass Index (BMI) 20.4 Physical Exam Const alert, oriented x3 and no apparent distress Orientation / Consciousness: awake, oriented to person, oriented to place and oriented to time HEENT normocephalic and moist oral mucous membranes Eyes PERRL, EOMs intact bilaterally and conjunctivae normal Neck no lymphadenopathy Resp clear to auscultation bilaterally Auscultation: diminished lung sounds Cardio regular rate, regular rhythm and no murmurs Peripheral Pulses: pulses 2+ throughout GI normal to inspection, nondistended, normoactive bowel sounds, non-tender and non-distended Extremity normal to inspection Extremity Narrative: + right carotid bruit Skin no rashes or lesions noted Lesions: no lesions Rashes: no rashes Trauma: no lacerations or abrasions Neuro CN's II-XII intact bilaterally, no focal motor deficits, no sensory deficits noted and deep tendon reflexes 2+ bilaterally Psych mental status grossly normal and affect normal Results Lab / Micro Data Result Diagrams: 09/20/21 14:26 09/20/21 14:26 Labs: Laboratory Results - last 24 hr 09/20/21 14:26: WBC 9.6, RBC 4.12 L, Hgb 11.8 L, Hct 35.1 L, MCV 85.2, MCH 28.6, MCHC 33.6, RDW Std Deviation 43.5, RDW Coeff of Obed 14.1, Plt Count 160, MPV 9.9, Immature Gran % (Auto) 0.700, Neut % (Auto) 83.1 H, Lymph % (Auto) 4.7 L, [place] % (Auto) 11.1 H, Eos % (Auto) 0.0, Baso % (Auto) 0.4, Absolute Neuts (auto) 8.0 H, Absolute Lymphs (auto) 0.45 L, Nucleated RBC % 0, Differential Comment SCANNED, Reactive Lymphocytes 2+ 09/20/21 14:26: PT 14.9, INR 1.2 09/20/21 14:26: Sodium 130 L, Potassium 3.9, Chloride 97 L, Carbon Dioxide 24.0, Anion Gap 9, BUN 26 H, Creatinine 0.79, Estim Creat Clear Calc 33.71, Est GFR (MDRD) Af Amer 89, Est GFR (MDRD) Non-Af 74, BUN/Creatinine Ratio 32.8 H, Glucose 242 H, Calcium 9.4, Troponin I High Sens 47 09/20/21 14:26: Total Bilirubin 1.70 H, Direct Bilirubin 0.54 H, AST 61 H, ALT 78 H, Alkaline Phosphatase 116, Total Protein 6.5, Albumin 3.2, Globulin 3.3 09/20/21 14:26: D-Dimer Quant (PE/DVT) 3.41 H* 09/20/21 15:05: COVID-19 (ANDREA) Not Detected Micro: Microbiology 09/20/21 14:20 Nasal Secretion SARS-CoV-2 Antigen (Rapid) - Final Radiology Impression Chest X-Ray 09/20/21 13:58 IMPRESSION: Multifocal opacities concerning for pneumonia. Recommend follow-up to resolution. at 1429 Reported and signed by: Margie Garrett MD Electronically Signed: Margie Garrett MD at 14:28 EDT Tel , Service support , Chest CTA 09/20/21 16:19 IMPRESSION: 1. No central or segmental pulmonary embolism. 2. Bilateral lower lobe peribronchial infiltrates may represent atelectasis versus pneumonia. No cavitating process. 3. Small bilateral pleural effusions. Electronically Signed: Sergei Bhardwaj MD ([place]) at 17:20 EDT , Service support , Assessment & Plan Assessment/Plan (1) Acute hypoxemic respiratory failure: (2) Pneumonia: PLAN: 1. Acute hypoxic respiratory failure secondary to bilateral community-acquired pneumonia-Covid negative. CTA of chest negative for PE, bilateral lower lobe infiltrates. Obtain respiratory panel. IV azithromycin and IV Rocephin. Send sputum for culture. Blood cultures drawn in ER. Albuterol and DuoNeb aerosols. Continue supplement oxygen to maintain O2 at above 90%. 2. Elevated liver enzymes-suspect secondary to acute infection. Trend liver profile. 3. Type 2 diabetes mellitus-continue oral regimen. Accu-Cheks with sliding scale insulin. 4. Right carotid artery disease-following with vascular surgery. Most recent CTA of neck 11/07/2020 demonstrated greater than 70% stenosis of the right internal carotid. Patient reports she was referred to [facility] and has appointment in November for further evaluation. Continue Plavix, statin. 5. Hypertension-stable, continue amlodipine, hydralazine, losartan. 6. Hyperlipidemia-continue statin. 7. Hypothyroidism-continue Synthroid regimen. 8. Depression-on venlafaxine. DVT prophylaxis- Lovenox sc This patient was seen by RADHA Montano under the supervision of Dr. Redman. Documented by User: Dr. Bethany Redman DO 09/20/21 19:17 HPI - General General Date of Admission: 09/20/21 Date of Service: 09/20/21 Chief Complaint: Shortness of breath/fever HPI Narrative Michelle Redman is an 81-year-old white female presented to the emergency department after developing fever cough and shortness of breath at home in the last 48 hours. She states prior to this she was well and has just returned to a trip from [facility] where she was visiting her daughter. She lives at home alone but her son lives close around the corner. She had a T-max yesterday of 101.2. She states her cough has been fairly nonproductive but present and she has had increasing shortness of breath especially with exertion. In the emergency department she was afebrile for her stay there and her blood pressure was elevated mildly her respiratory rate was slightly elevated on admission but normalized and she was placed on 4 L nasal cannula with resolution of hypoxia. On room air she was 87%. Her CBC was unremarkable other than some chronic anemia with a stable hemoglobin however she did have a left shift with neutrophilia. Her BMP showed some mild hyponatremia which seems to fluctuate but her most recent labs shows normal natremia, mildly elevated BUN at 26 and an elevated creatinine from her baseline although she has no ZAHIDA at this time. Her blood sugar is elevated at 242 and this may be contributing to her hyponatremia. She had a normal lactic acid however her bilirubin was elevated at 1.7 and and her TRAM and Eminase's were elevated as well which is abnormal for her. A troponin was obtained and was normal. Given her recent travel and shortness of breath D-dimer was collected and was found to be 3.41 for which a CTA of her chest was performed. The CTA was negative for pulmonary emboli but showed bilateral lower lobe peribronchial infiltrates as well as small bilateral pleural effusions right greater than left. [facility] Medical History Bilateral carotid bruits Carotid artery stenosis Carotid stenosis, bilateral Chronic constipation Depression Diabetes mellitus Dizziness Essential hypertension Hyperlipidemia Hypothyroidism Valvular heart disease Home Medications sennosides 8.6 mg tablet 8.6 mg PO DAILY PRN 09/14/19 [History Last Taken 02/06/20] Synthroid 88 mcg tablet 88 mcg PO DAILY #90 tab NS 07/16/20 [Rx Last Taken Unknown] losartan 100 mg tablet 100 mg PO DAILY #90 tab 07/16/20 [Rx Last Taken Unknown] rosuvastatin 5 mg tablet 5 mg PO DAILY tab 10/21/20 [History Last Taken Unknown] cholecalciferol (vitamin D3) 125 mcg (5,000 unit) capsule 125 mcg PO DAILY 10/30/20 [History Last Taken Unknown] clopidogrel 75 mg tablet 75 mg PO DAILY tab 10/30/20 [History Last Taken Unknown] omega-3 fatty acids 1,000 mg capsule 1,000 mg PO DAILY 10/30/20 [History Last Taken Unknown] venlafaxine 75 mg tablet 75 mg PO DAILY 10/30/20 [History Last Taken Unknown] amlodipine 5 mg tablet 5 mg PO QHS #1 tab 04/30/21 [Rx Last Taken Unknown] biotin 10,000 mcg capsule 10,000 mcg PO DAILY cap 04/30/21 [History Last Taken Unknown] glipizide 5 mg tablet 5 mg PO DAILY 04/30/21 [History Last Taken Unknown] hydralazine 25 mg tablet 25 mg PO TID 04/30/21 [History Last Taken Unknown] sitagliptin 100 mg tablet 100 mg PO DAILY 04/30/21 [History Last Taken Unknown] tramadol 50 mg tablet 50 mg PO TID PRN 04/30/21 [History Last Taken Unknown] Allergy/AdvReac Type Severity Reaction Status Date / Time metformin Allergy Severe Rash Verified 09/20/21 14:49 neomycin [Neomycin] Allergy Severe Unknown Verified 09/20/21 14:49 Tetracyclines Allergy Severe Anaphylaxis Verified 09/20/21 14:49 Sulfa (Sulfonamide Allergy Unknown Verified 09/20/21 14:49 Antibiotics) Family History Mother Thyroid disorder Father Alzheimer disease Surgical History History of foot surgery History of left heart catheterization (12/28/14) History of thyroidectomy History of tonsillectomy and adenoidectomy Social History Smoking Status: Former smoker alcohol intake: current alcohol intake frequency: a few times a week Alcohol type: wine substance use type: does not use caffeine: Yes Type: coffee Number of servings: 1 ROS Constitutional Constitutional: Reports anorexia, chills, fatigue, fever(s), malaise and weakness; Denies change in weight, night sweats or other Eyes Eyes: Denies blurry vision, change in eye color, change in vision, discharge from eye(s), double vision, erythema, eye pain, loss of vision or other ENT HEENT: Denies abnormal hearing, dysphagia, ear pain, epistaxis, headache(s), hearing loss, nasal congestion, nasal discharge, post nasal drip, sinus pressure, sore throat or other Cardiovascular Cardiovascular: Reports dyspnea on exertion; Denies chest pain, claudication, edema, lightheadedness, orthopnea, palpitations, paroxysmal nocturnal dyspnea, rapid heart rate, syncope or other Respiratory/Chest Respiratory/Chest: Reports cough, dyspnea, productive cough, shortness of breath at rest and shortness of breath with exertion; Denies excessive phlegm production, hemoptysis, wheezing or other Gastrointestinal Gastrointestinal: Reports loose stools; Denies abdominal pain, coffee ground emesis, constipation, diarrhea, dyspepsia, hematemesis, hematochezia, melena, nausea, vomiting or other Genitourinary Genitourinary: Denies burning urination, difficulty urinating, dysuria, hematuria, nocturia, urinary frequency, urinary hesitancy, urinary incontinence, urinary urgency or other Musculoskeletal Musculoskeletal: Denies arthralgias, back pain, joint pain, joint stiffness, joint swelling, myalgias, neck pain or other Neurologic Neurologic: Denies abnormal gait, abnormal speech, confusion, disequilibrium, dizziness, focal weakness, headache(s), numbness, paresthesias, seizure-like activity, seizures, syncope, tingling, tremor(s) or other Psychiatric Psychiatric: Denies anxiety, depression, homicidal ideation, suicidal ideation or other Endocrine Endocrinology: Reports other Details: Recent elevated blood sugars ; Denies change in body appearance, cold intolerance, excessive sweating, heat intolerance, polydipsia or polyuria Hematologic/Lymphatic Hematologic/Lymphatic: Denies anemia, easy bleeding, easy bruising, lymphadenopathy or other Allergic/Immunologic Allergic/Immunologic: Denies rhinitis, hives, eczemia, asthma or other Physical Exam Const alert, oriented x3 and no apparent distress Constitutional Narrative: Very pleasant elderly white female sitting up in bed, son at bedside, nontoxic, very pleasant General Appearance: cooperative HEENT normocephalic, head/scalp atraumatic, hearing grossly normal bilaterally and moist oral mucous membranes HEENT Narrative: Mallampati 2, no thrush Eyes PERRL, EOMs intact bilaterally and conjunctivae normal Eyes Narrative: No scleral icterus Neck no lymphadenopathy, supple and no JVD Neck Narrative: Right-sided carotid bruit, Trachea midline, no thyroid enlargement r Resp no retractions and no use of accessory muscles Resp Narrative: Mild tachycardia, diminished at right base Auscultation: Negative for crackles, rales, rhonchi or wheezes Cardio regular rate, regular rhythm, S1 normal heart sound, S2 normal heart sound, no rub, no gallops, no clicks and no JVD Cardio Narrative: 2 out of 6 systolic murmur loudest at the right upper sternal border GI normal to inspection, nondistended, normoactive bowel sounds, soft to palpation, non-tender and non-distended; Negative for hepatosplenomegaly Extremity Extremity Narrative: Trace bilateral lower extremity edema, no cyanosis or clubbing, compression hose in place Peripheral Pulses: Yes pulses 2+ throughout Skin no rashes or lesions noted, no wounds, skin turgor normal, no jaundice, no petechiae and no mottling Skin Narrative: Pale skin Neuro oriented x3, CN's II-XII intact bilaterally, moves all extremities and no focal motor deficits Neuro Narrative: Mild generalized weakness, proximal greater than distal Sensorium / Orientation: awake, alert, oriented to person, oriented to place and oriented to time Speech: speech normal Psych affect normal Psych Narrative: Extremely pleasant Results Lab / Micro Data Attestation: I reviewed the patient's lab results. 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 Diabetes mellitus complication status: with other specified complication Qualified Code(s): E11.69 - Type 2 diabetes mellitus with other specified complication (5) Transaminitis: PLAN: Assessment: Hypoxic respiratory failure secondary to community-acquired pneumonia Bilateral pleural effusion-small right greater than left Transaminitis DM-2 uncontrolled Mild hyponatremia Mild acute anemia-normocytic Right carotid artery stenosis Hypertension Hyperlipidemia Hypothyroidism Vitamin D deficiency Depression Plan: -Supplemental oxygen as needed to maintain sats greater than 92% -Ceftriaxone and azithromycin -As needed nebulizers -Check urine Legionella and strep pneumo antigens -Check PCR viral panel -Check sputum culture -Blood cultures obtained in the emergency department however I do not anticipate that these will be positive -Mucinex -I-S and Acapella -Possible parapneumonic effusion but there is currently not enough fluid to perform thoracentesis on to obtain culture or light's criteria -Continue to monitor -Patient's blood sugars have been elevated--> hold home oral agents--> discussed with Dr. Bhagat and will start Lantus 10 units at at bedtime and a sliding scale for now with the intent that she will be discharged on insulin -We will titrate up as needed -We will run 1 L of IV fluids and reassess tomorrow Charges/Coding Visit Charges Inpatient E&M: 85771 Init Hosp L3
[2021-09-20] MEDS: Ipratropium/Albuterol Sulfate 3 ML AMPUL.NEB INHALATION (18:23)
[2021-09-20] MEDS: Ceftriaxone 1 GM/50 ML BAG IV (18:30)
[2021-09-20 18:43] LABS: Lactic Acid 0.8 mmol/L (0.4-1.9)
[2021-09-20] MEDS: 0.9% Normal Saline 1,000 ML 70 ML IV (19:06)
--- NOTE | 2021-09-20 20:14 | EKG12_ITS ---
Test Reason : CP Blood Pressure : / mmHG Vent. Rate : 071 BPM Atrial Rate : 071 BPM P-R Int : 178 ms QRS Dur : 086 ms QT Int : 416 ms P-R-T Axes : 079 006 -05 degrees QTc Int : 452 ms Normal sinus rhythm Septal infarct , age undetermined Abnormal ECG Confirmed by TRAVIS JOLLY, KATT ([id number]), commercial production editor CELESTE RODRIGUEZ ([id number]) on 09/24/2021 9:35:52 AM Referred By: FELECIA Confirmed By:KATT ROBLES MD
[2021-09-20 20:59] LABS: Troponin-I HS 43 pg/mL (3.0-54.0)
[2021-09-20] MEDS: Atorvastatin Calcium 10 MG Tablet PO (22:40)
[2021-09-20] MEDS: guaiFENesin 600 MG Tablet PO (22:41)
[2021-09-20] MEDS: amLODIPine 10 MG Tablet PO (22:43)
[2021-09-20 23:06] LABS: Bedside Glucose 176 mg/dL (70-110)
[2021-09-20] MEDS: hydrALAZINE 25 MG Tablet PO (23:23)
[2021-09-20 23:31] LABS: Troponin-I HS 42 pg/mL (3.0-54.0)
[2021-09-21] VITALS (8 sets, daily range): BP systolic 113–156; BP diastolic 34–64; PULSE 58–80; RESP 14–16; TEMP 36.1–38.2; O2SAT 92–96
[2021-09-21] MEDS: Acetaminophen 325 MG Tablet 650 MG PO ×2 (02:54→20:56)
[2021-09-21 03:00] LABS: Absolute Lymphocyte Count 0.56 X10^3/uL (0.83-4.51); Absolute Neutrophil Count 5.7 X10^3/uL (2.0-7.7); Basophil# 0.03 X10^3/uL; Basophil% 0.4 % (0-1); Eosinophil# 0.09 X10^3/uL; Eosinophils% 1.2 % (0-5); Hematocrit 31.4 % (37-47); Hemoglobin 10.4 g/dL (12.0-15.0); Lymphocyte # 0.56 X10^3/ul (0.83-4.51); Lymphocyte % 7.8 % (19-41); Mean Corp Hgb Conc 33.1 g/dL (32-36); Mean Corpuscular Hgb 28.3 pg (27.0-32.0); Mean Corpuscular Volume 85.3 fL (81-99); Mean Platelet Vol. 10.4 fl (6.2-12.0); Monocyte# 0.86 X10^3/uL; Monocyte% 11.9 % (0-10); NRBC Flagged by Analyzer 0 % (0-5); Neutrophil # 5.65 X10^3/uL (2.7-7.7); Neutrophil % 78.3 % (47-70); POSITIVE DIFFERENTIAL YES; Platelet Count 152 K/mm3 (150-450); RBC Distribution Width SD 43.5 fl (35.1-43.9); Red Blood Count 3.68 M/mm3 (4.2-5.4); White Blood Count 7.2 K/mm3 (4.4-11.0)
[2021-09-21 03:18] LABS: Differential Indicated SCAN CRITERIA MET
[2021-09-21 03:47] LABS: Troponin-I HS 40 pg/mL (3.0-54.0)
[2021-09-21 04:12] LABS: ALB/GLOB Ratio 0.7 RATIO (0.9-2.4); AST(SGOT) 49 U/L (15-37); Alanine Aminotransfer ALT/SGPT 67 U/L (13-56); Albumin, Serum 2.3 g/dL (3.2-5.0); Alkaline Phosphatase 96 U/L (45-117); Anion Gap 7 (5-15); BUN 18 mg/dL (7-18); BUN/Creat Ratio 34.2 RATIO (10-20); Calcium,Total 8.4 mg/dL (8.5-10.1); Chloride 102 mmol/L (98-107); Creatinine, Serum 0.53 mg/dL (0.55-1.02); EST Glomerular Filtration Rate 118 mL/min (>60); Est Glom Filt Rate - Afr Amer 143 mL/min (>60); Estimated Creatinine Clearance 33.31 ml/min; Globulin 3.1 g/dL (2.2-4.2); Glucose 109 mg/dL (74-106); Magnesium 1.9 mg/dL (1.6-2.6); Phosphorus 1.7 mg/dL (2.5-4.9); Potassium 3.5 mmol/L (3.5-5.1); Protein, Total 5.4 g/dL (6.4-8.2); Sodium Level 135 mmol/L (136-145)
[2021-09-21 06:40] LABS: Differential Comment SCANNED
[2021-09-21] MEDS: hydrALAZINE 25 MG Tablet PO ×3 (06:55→20:56)
[2021-09-21] MEDS: Enoxaparin 40 MG/0.4 ML Syringe SC (06:56)
[2021-09-21] MEDS: CLARIFY ORDER NOTE (07:01)
[2021-09-21 07:10] LABS: Bedside Glucose 72 mg/dL (70-110)
[2021-09-21 09:08] LABS: M R Staph aureus DNA By PCR Negative (Negative); Probe Check PASS; Specimen Processing Control PASS
[2021-09-21] MEDS: Cholecalciferol (VIT D3) 25 MCG TABLET (1,000 UNITS) 125 MCG PO (09:53)
[2021-09-21] MEDS: guaiFENesin 600 MG Tablet PO ×2 (09:53→20:56)
[2021-09-21] MEDS: Clopidogrel Bisulfate 75 MG Tablet PO (09:54)
[2021-09-21] MEDS: Losartan Potassium 100 MG Tablet PO (09:54)
--- NOTE | 2021-09-21 10:24 | PCM.PN.HOSP ---
Documented by User: Pat Santiago MID LEVEL PRACTITIONER, MID LEVEL PRACTITIONER-C 09/21/21 10:29 Subjective Subjective Patient seen and examined. Reports fever overnight. Feels shortness of breath is improving. Denies cough. Remains on supplemental oxygen however decreased to 2 L. Objective Data Objective Data Vital Signs: Vital Signs Temp Pulse Resp BP Pulse Ox 97.7 F L 64 16 113/48 L 96 09/21/21 09:46 09/21/21 09:46 09/21/21 09:46 09/21/21 09:46 09/21/21 09:46 Oxygen Flow Rate (L/min) 2 Oxygen Delivery Method Nasal Cannula Weight: 109 lb 2.061 oz Body Mass Index (BMI) 19.9 Intake & Output: Intake and Output for Last 24 Hours 09/19/21 09/20/21 09/21/21 23:59 23:59 23:59 Intake Total 305 / 305 Balance 305 / 305 Lab / Micro Data Result Diagrams: 09/21/21 02:45 09/21/21 02:45 Labs: Laboratory Results - last 24 hr 09/20/21 14:26: WBC 9.6, RBC 4.12 L, Hgb 11.8 L, Hct 35.1 L, MCV 85.2, MCH 28.6, MCHC 33.6, RDW Std Deviation 43.5, RDW Coeff of Obed 14.1, Plt Count 160, MPV 9.9, Immature Gran % (Auto) 0.700, Neut % (Auto) 83.1 H, Lymph % (Auto) 4.7 L, [place] % (Auto) 11.1 H, Eos % (Auto) 0.0, Baso % (Auto) 0.4, Absolute Neuts (auto) 8.0 H, Absolute Lymphs (auto) 0.45 L, Nucleated RBC % 0, Differential Comment SCANNED, Reactive Lymphocytes 2+ 09/20/21 14:26: PT 14.9, INR 1.2 09/20/21 14:26: Sodium 130 L, Potassium 3.9, Chloride 97 L, Carbon Dioxide 24.0, Anion Gap 9, BUN 26 H, Creatinine 0.79, Estim Creat Clear Calc 33.71, Est GFR (MDRD) Af Amer 89, Est GFR (MDRD) Non-Af 74, BUN/Creatinine Ratio 32.8 H, Glucose 242 H, Calcium 9.4, Troponin I High Sens 47 09/20/21 14:26: Total Bilirubin 1.70 H, Direct Bilirubin 0.54 H, AST 61 H, ALT 78 H, Alkaline Phosphatase 116, Total Protein 6.5, Albumin 3.2, Globulin 3.3 09/20/21 14:26: D-Dimer Quant (PE/DVT) 3.41 H* 09/20/21 15:05: COVID-19 (ANDREA) Not Detected 09/20/21 18:09: Lactic Acid 0.8 09/20/21 20:25: Troponin I High Sens 43 09/20/21 22:37: POC Glucose 176 H 09/20/21 22:40: Troponin I High Sens 42 09/21/21 02:45: WBC 7.2, RBC 3.68 L, Hgb 10.4 L, Hct 31.4 L, MCV 85.3, MCH 28.3, MCHC 33.1, RDW Std Deviation 43.5, RDW Coeff of Obed 14.0, Plt Count 152, MPV 10.4, Immature Gran % (Auto) 0.400, Neut % (Auto) 78.3 H, Lymph % (Auto) 7.8 L, [place] % (Auto) 11.9 H, Eos % (Auto) 1.2, Baso % (Auto) 0.4, Absolute Neuts (auto) 5.7, Absolute Lymphs (auto) 0.56 L, Nucleated RBC % 0, Differential Comment SCANNED 09/21/21 02:45: Sodium 135 L, Potassium 3.5, Chloride 102, Carbon Dioxide 26.0, Anion Gap 7, BUN 18, Creatinine 0.53 L, Estim Creat Clear Calc 33.31, Est GFR (MDRD) Af Amer 143, Est GFR (MDRD) Non-Af 118, BUN/Creatinine Ratio 34.2 H, Glucose 109 H, Calcium 8.4 L, Phosphorus 1.7 L, Magnesium 1.9, Total Bilirubin 1.10 H, AST 49 H, ALT 67 H, Alkaline Phosphatase 96, Total Protein 5.4 L, Albumin 2.3 L, Globulin 3.1, Albumin/Globulin Ratio 0.7 L 09/21/21 02:45: Troponin I High Sens 40 09/21/21 05:15: MRSA (PCR) Negative 09/21/21 06:54: POC Glucose 72 Micro: Microbiology 09/21/21 07:35 Urine, Clean Catch Legionella Antigen - Final 09/21/21 07:35 Urine, Clean Catch Streptococcus pneumoniae Antigen (M - Final 09/20/21 20:30 Mucosa - Nasopharyngeal Respiratory Panel (PCR) - Final 09/20/21 14:20 Nasal Secretion SARS-CoV-2 Antigen (Rapid) - Final Radiography Diagnostic Testing: Radiology Impression Chest X-Ray 09/20/21 13:58 IMPRESSION: Multifocal opacities concerning for pneumonia. Recommend follow-up to resolution. at 1429 Reported and signed by: Margie Garrett MD Electronically Signed: Margie Garrett MD at 14:28 EDT Tel , Service support , Chest CTA 09/20/21 16:19 IMPRESSION: 1. No central or segmental pulmonary embolism. 2. Bilateral lower lobe peribronchial infiltrates may represent atelectasis versus pneumonia. No cavitating process. 3. Small bilateral pleural effusions. Electronically Signed: Sergei Bhardwaj MD ([place]) at 17:20 EDT , Service support , Physical Exam Const alert, oriented x3 and no apparent distress Orientation / Consciousness: awake, oriented to person, oriented to place and oriented to time HEENT normocephalic and moist oral mucous membranes Eyes PERRL, EOMs intact bilaterally and conjunctivae normal Neck no lymphadenopathy Neck Narrative: + right carotid bruit Resp clear to auscultation bilaterally Auscultation: diminished lung sounds Cardio regular rate and regular rhythm Peripheral Pulses: pulses 2+ throughout GI normal to inspection, nondistended, normoactive bowel sounds, non-tender and non-distended Extremity normal to inspection Skin no rashes or lesions noted Lesions: no lesions Rashes: no rashes Trauma: no lacerations or abrasions Neuro CN's II-XII intact bilaterally, no focal motor deficits, no sensory deficits noted and deep tendon reflexes 2+ bilaterally Psych mental status grossly normal and affect normal Assessment & Plan Assessment/Plan (1) Community acquired pneumonia: PLAN: 1. Acute hypoxic respiratory failure secondary to bilateral community-acquired pneumonia-Covid negative. CTA of chest negative for PE, bilateral lower lobe infiltrates. Respiratory panel negative. IV azithromycin and IV Rocephin. Send sputum for culture. Blood cultures pending. Albuterol and DuoNeb aerosols. Continue supplement oxygen to maintain O2 at above 90%. Walking pulse ox prior to discharge. 2. Elevated liver enzymes-suspect secondary to acute infection. Trend liver profile. Repeat improved. 3. Type 2 diabetes mellitus-Metformin on hold. Per PCP, patient has been resistant to insulin. Now amendable. Lantus 8 units nightly. Accu-Cheks with sliding scale insulin. 4. Right carotid artery disease-following with vascular surgery. Most recent CTA of neck 11/07/2020 demonstrated greater than 70% stenosis of the right internal carotid. Patient reports she was referred to [facility] and has appointment in November for further evaluation. Continue Plavix, statin. 5. Hypertension-stable, continue amlodipine, hydralazine, losartan. 6. Hyperlipidemia-continue statin. 7. Hypothyroidism-continue Synthroid regimen. 8. Depression-on venlafaxine. DVT prophylaxis- Lovenox sc This patient was seen by Pat Santiago NP-C under the supervision of Dr. Redman. Documented by User: Dr. Bethany Redman DO 09/21/21 12:26 Subjective Subjective This patient was seen in conjunction with Pat Santiago NP. The following is representation my independent history and physical examination. Please see below for any addendum to the above. The patient states she is overall feeling better. Cough is still nonproductive. Currently on 2 L nasal cannula down from 4 L. Oxygen saturations are stable. I discussed with the patient the initiation of Lantus and my discussion with Dr. Martino with regards to discharging her on subcu insulin. She was hesitant but agreeable. Blood sugars are much better on Lantus and we will continue to monitor. I discussed with nursing and they are going to teach her how to inject herself and how to use a pen. T-max overnight of 100.7 at approximately 4 AM. Objective Data Lab / Micro Data Result Diagrams: 09/21/21 02:45 09/21/21 02:45 Physical Exam Const alert, oriented x3 and no apparent distress Constitutional Narrative: Very pleasant elderly white female sitting up in bed, reading the menu picking at her lunch, nontoxic, very pleasant, currently on 2 L nasal cannula with oxygen saturations consistently greater than 92% General Appearance: cooperative Orientation / Consciousness: awake, oriented to person, oriented to place and oriented to time Exam Limitations: no limitations HEENT normocephalic, head/scalp atraumatic, hearing grossly normal bilaterally and moist oral mucous membranes Head and Scalp: normocephalic Resp normal respiratory effort, no retractions and no use of accessory muscles Resp Narrative: Remains slightly diminished at the right base Auscultation: diminished lung sounds; Negative for crackles, rales, rhonchi or wheezes Cardio regular rate, regular rhythm, S1 normal heart sound, S2 normal heart sound, no rub, no gallops, no clicks and no JVD Cardio Narrative: 2 out of 6 systolic murmur loudest at the right upper sternal border Peripheral Pulses: pulses 2+ throughout GI normal to inspection, nondistended, normoactive bowel sounds, soft to palpation, non-tender and non-distended; Negative for hepatosplenomegaly Extremity normal to inspection Extremity Narrative: Trace by lower extremity edema, no cyanosis or clubbing Peripheral Pulses: Yes pulses 2+ throughout Skin Lesions: no lesions Rashes: no rashes Trauma: no lacerations or abrasions Neuro oriented x3, moves all extremities, no focal motor deficits and deep tendon reflexes 2+ bilaterally Neuro Narrative: Mild generalized weakness, proximal greater than distal Sensorium / Orientation: awake and alert Speech: speech normal Psych mental status grossly normal Assessment & Plan Assessment/Plan (1) Community acquired pneumonia: (2) Transaminitis: (3) Pleural effusion, right: (4) Diabetes mellitus, type II: QUALIFIERS: Diabetes mellitus care home insulin use: without care home use Diabetes mellitus complication status: with other specified complication Qualified Code(s): E11.69 - Type 2 diabetes mellitus with other specified complication PLAN: Assessment: Hypoxic respiratory failure secondary to community-acquired pneumonia Bilateral pleural effusion-small right greater than left Transaminitis DM-2 uncontrolled Mild hyponatremia Mild acute anemia-normocytic Right carotid artery stenosis Hypertension Hyperlipidemia Hypothyroidism Vitamin D deficiency Depression Plan: -Supplemental oxygen as needed to maintain sats greater than 92% -Continue ceftriaxone and azithromycin -As needed nebulizers -urine Legionella and strep pneumo antigens were negative -PCR viral panel was negative -Sputum culture still pending as patient has not been able to produce -Blood cultures pending -Continue Mucinex -Continue I-S and Acapella -Possible parapneumonic effusion but there is currently not enough fluid to perform thoracentesis on to obtain culture or light's criteria -Continue to monitor -Patient's blood sugars have been elevated--> hold home oral agents--> discussed with Dr. Bhagat and started Lantus 10 units at at bedtime--> decreased to 8 units today as a.m. fasting sugar was 72 -Would recommend discontinuation of glipizide at discharge with close follow-up to Dr. Bhagat -Discontinue IV fluids -Transaminase elevation is improved and LFTs are normalizing
[2021-09-21] MEDS: Insulin Lispro 100 UNIT/ML INSULN.PEN SC ×2 (12:25→17:39)
[2021-09-21] MEDS: Na Biphos/Potassium Phosphate PACKET 1 PACKET PO ×2 (15:22→22:05)
[2021-09-21] MEDS: Atorvastatin Calcium 10 MG Tablet PO (20:56)
[2021-09-21] MEDS: amLODIPine 10 MG Tablet PO (20:56)
[2021-09-22] VITALS (12 sets, daily range): BP systolic 123–140; BP diastolic 52–72; PULSE 58–72; RESP 14–18; TEMP 36.8–37.3; O2SAT 90–97
[2021-09-22] MEDS: Na Biphos/Potassium Phosphate PACKET 1 PACKET PO ×2 (06:08→14:06)
[2021-09-22] MEDS: hydrALAZINE 25 MG Tablet PO ×3 (06:09→20:33)
[2021-09-22] MEDS: Levothyroxine 88 MCG Tablet PO (06:11)
[2021-09-22] MEDS: Enoxaparin 40 MG/0.4 ML Syringe SC (06:11)
[2021-09-22 06:13] LABS: Absolute Lymphocyte Count 0.71 X10^3/uL (0.83-4.51); Absolute Neutrophil Count 3.8 X10^3/uL (2.0-7.7); Basophil# 0.03 X10^3/uL; Basophil% 0.5 % (0-1); Eosinophil# 0.24 X10^3/uL; Eosinophils% 4.3 % (0-5); Hematocrit 30.5 % (37-47); Hemoglobin 10.3 g/dL (12.0-15.0); Lymphocyte # 0.71 X10^3/ul (0.83-4.51); Lymphocyte % 12.6 % (19-41); Mean Corp Hgb Conc 33.8 g/dL (32-36); Mean Corpuscular Hgb 28.9 pg (27.0-32.0); Mean Corpuscular Volume 85.7 fL (81-99); Mean Platelet Vol. 10.6 fl (6.2-12.0); Monocyte# 0.79 X10^3/uL; NRBC Flagged by Analyzer 0 % (0-5); Neutrophil # 3.83 X10^3/uL (2.7-7.7); Neutrophil % 68.1 % (47-70); Platelet Count 169 K/mm3 (150-450); RBC Distribution Width CV 14.2 % (11.6-14.6); RBC Distribution Width SD 44.6 fl (35.1-43.9); Red Blood Count 3.56 M/mm3 (4.2-5.4); White Blood Count 5.6 K/mm3 (4.4-11.0)
[2021-09-22] MEDS: Insulin Lispro 100 UNIT/ML INSULN.PEN SC ×4 (06:30→20:36)
[2021-09-22 06:39] LABS: Phosphorus 2.1 mg/dL (2.5-4.9)
[2021-09-22 06:40] LABS: ALB/GLOB Ratio 0.7 RATIO (0.9-2.4); AST(SGOT) 41 U/L (15-37); Alanine Aminotransfer ALT/SGPT 58 U/L (13-56); Albumin, Serum 2.2 g/dL (3.2-5.0); Alkaline Phosphatase 111 U/L (45-117); Anion Gap 8 (5-15); BUN 18 mg/dL (7-18); BUN/Creat Ratio 31.8 RATIO (10-20); Calcium,Total 8.2 mg/dL (8.5-10.1); Chloride 102 mmol/L (98-107); Creatinine, Serum 0.57 mg/dL (0.55-1.02); EST Glomerular Filtration Rate 109 mL/min (>60); Est Glom Filt Rate - Afr Amer 131 mL/min (>60); Estimated Creatinine Clearance 33.31 ml/min; Glucose 166 mg/dL (74-106); Potassium 3.5 mmol/L (3.5-5.1); Protein, Total 5.2 g/dL (6.4-8.2); Sodium Level 135 mmol/L (136-145)
[2021-09-22] MEDS: guaiFENesin 600 MG Tablet PO ×2 (09:55→20:34)
[2021-09-22] MEDS: Cholecalciferol (VIT D3) 25 MCG TABLET (1,000 UNITS) 125 MCG PO (09:55)
[2021-09-22] MEDS: Losartan Potassium 100 MG Tablet PO (09:56)
[2021-09-22] MEDS: Clopidogrel Bisulfate 75 MG Tablet PO (09:57)
--- NOTE | 2021-09-22 11:06 | PCM.PN.HOSP ---
Documented by User: Pat Santiago VICE PRESIDENT RESIDENTIAL SOLAR SALES, VICE PRESIDENT RESIDENTIAL SOLAR SALES-C 09/22/21 11:18 Subjective Subjective Patient seen and examined. Reports ongoing shortness of breath, mostly with conversation and exertion. Reports she has been able to cough up a small amount of sputum. Reports intermittent fever, chills. Objective Data Objective Data Vital Signs: Vital Signs Temp Pulse Resp BP Pulse Ox 98.9 F 62 14 133/59 H 97 09/22/21 08:10 09/22/21 08:10 09/22/21 08:10 09/22/21 08:10 09/22/21 08:10 Oxygen Flow Rate (L/min) 2 Oxygen Delivery Method Nasal Cannula Weight: 109 lb 2.061 oz Body Mass Index (BMI) 19.9 Intake & Output: Intake and Output for Last 24 Hours 09/20/21 09/21/21 09/22/21 23:59 23:59 23:59 Intake Total 305 / 305 1305 / 1455 200 / 200 Output Total 200 / 200 Balance 305 / 305 1305 / 1455 0 / 0 Lab / Micro Data Result Diagrams: 09/22/21 05:26 09/22/21 05:26 Labs: Laboratory Results - last 24 hr 09/22/21 05:26: WBC 5.6, RBC 3.56 L, Hgb 10.3 L, Hct 30.5 L, MCV 85.7, MCH 28.9, MCHC 33.8, RDW Std Deviation 44.6 H, RDW Coeff of Obed 14.2, Plt Count 169, MPV 10.6, Immature Gran % (Auto) 0.500, Neut % (Auto) 68.1, Lymph % (Auto) 12.6 L, [place] % (Auto) 14.0 H, Eos % (Auto) 4.3, Baso % (Auto) 0.5, Absolute Neuts (auto) 3.8, Absolute Lymphs (auto) 0.71 L, Nucleated RBC % 0 09/22/21 05:26: Sodium 135 L, Potassium 3.5, Chloride 102, Carbon Dioxide 25.0, Anion Gap 8, BUN 18, Creatinine 0.57, Estim Creat Clear Calc 33.31, Est GFR (MDRD) Af Amer 131, Est GFR (MDRD) Non-Af 109, BUN/Creatinine Ratio 31.8 H, Glucose 166 H, Calcium 8.2 L, Total Bilirubin 0.90, AST 41 H, ALT 58 H, Alkaline Phosphatase 111, Total Protein 5.2 L, Albumin 2.2 L, Globulin 3.0, Albumin/Globulin Ratio 0.7 L 09/22/21 05:26: Phosphorus 2.1 L Micro: Microbiology 09/21/21 07:35 Urine, Clean Catch Legionella Antigen - Final 09/21/21 07:35 Urine, Clean Catch Streptococcus pneumoniae Antigen (M - Final 09/20/21 20:30 Mucosa - Nasopharyngeal Respiratory Panel (PCR) - Final 09/20/21 14:20 Nasal Secretion SARS-CoV-2 Antigen (Rapid) - Final Physical Exam Const alert, oriented x3 and no apparent distress Orientation / Consciousness: awake, oriented to person, oriented to place and oriented to time HEENT normocephalic and moist oral mucous membranes Eyes PERRL, EOMs intact bilaterally and conjunctivae normal Neck no lymphadenopathy Resp clear to auscultation bilaterally Cardio regular rate, regular rhythm and no murmurs Peripheral Pulses: pulses 2+ throughout GI normal to inspection, nondistended, normoactive bowel sounds, non-tender and non-distended Extremity normal to inspection Skin no rashes or lesions noted Lesions: no lesions Rashes: no rashes Trauma: no lacerations or abrasions Neuro CN's II-XII intact bilaterally, no focal motor deficits, no sensory deficits noted and deep tendon reflexes 2+ bilaterally Psych mental status grossly normal and affect normal Assessment & Plan Assessment/Plan (1) Acute hypoxemic respiratory failure: (2) Community acquired pneumonia: PLAN: 1. Acute hypoxic respiratory failure secondary to bilateral community-acquired pneumonia-Covid negative. CTA of chest negative for PE, bilateral lower lobe infiltrates. Respiratory panel negative. IV azithromycin and IV Rocephin. Send sputum for culture. Blood cultures pending. Albuterol and DuoNeb aerosols. Continue supplement oxygen to maintain O2 at above 90%. Walking pulse ox prior to discharge. Remains dyspneic and on supplemental oxygen. Continue current regimen. 2. Elevated liver enzymes-suspect secondary to acute infection. Trend liver profile. Repeat improved. 3. Type 2 diabetes mellitus-Metformin on hold. Per PCP, patient has been resistant to insulin. Now amendable. Lantus 8 units nightly. Accu-Cheks with sliding scale insulin. 4. Right carotid artery disease-following with vascular surgery. Most recent CTA of neck 11/07/2020 demonstrated greater than 70% stenosis of the right internal carotid. Patient reports she was referred to [facility] and has appointment in November for further evaluation. Continue Plavix, statin. 5. Hypertension-stable, continue amlodipine, hydralazine, losartan. 6. Hyperlipidemia-continue statin. 7. Hypothyroidism-continue Synthroid regimen. 8. Depression-on venlafaxine. DVT prophylaxis- Lovenox sc This patient was seen by RADHA Montano under the supervision of Dr. Serra. Documented by User: Dr. Radha Serra MD 09/22/21 18:03 Objective Data Lab / Micro Data Result Diagrams: 09/22/21 05:26 09/22/21 05:26 Charges/Coding Addendum Addendum: This patient was seen in conjunction with Pat Santiago. I have independently interviewed and examined the patient and reviewed pertinent historical, laboratory, and other data. I have reviewed her note and concur with her documentation Patient was seen and examined. She remains on 2 L of oxygen. Denied any new complaints. Physical Exam: Gen: Appears comfortable, on 2 L oxygen, not pale, not jaundiced CVS:HS I +II, regular, no murmurs RESP: Diminished at lung bases GI: BS present and normal, soft, nontender, no palpable organs EXT:No edema ASSESSMENT: 1. Acute hypoxic respiratory failure 2. Acute bilateral community-acquired pneumonia 3. Elevated liver enzymes 4. Type II DM 5. Hypertension 6. Right carotid artery stenosis 7. Hyperlipidemia 8. Hypothyroidism 9. Depression Plan: Continue to wean off oxygen Continue on breathing treatments Continue on IV antibiotics for now Rest of her meds reviewed Visit Charges Inpatient E&M: 74949 Subs Hosp L2
--- NOTE | 2021-09-22 11:37 | CASEMGMT ---
Assessment- SW completed assessment with patient at bedside. SW also confirmed address, phone numbers, and contacts. Living situation- Patient lives alone in a condo with a couple entry steps. She has a basement, but does not use it. PCP: Dr Bhagat Specialists: Dr Tena Pharmacy: [facility] DME: walker, walking stick, raised toilet seat, grab bars, and medical alert ADL's/IADL's: Patient is normally independent with bathing, ambulating, dressing, toileting, tool marker, and bills. She does have a lady come in on Wednesday evenings to arrange her pills for the week. Past SNF/rehab: None Past HH: None LW: Yes. She is aware it is not on file at [facility] POA: Yes. She is aware it is not on file at [facility]. Her healthcare POA is her son Mathew. Plan: Patient said she may want to go to TCU when she is ready for discharge if she does not feel safe enough to go home by herself. LUIS ANGEL told her SW can put her on the TCU list. Should she choose to go home and need O2 she does not have a preference for a provider. SW did call Betty with TCU and put patient's name on the list. However, PT saw her yesterday and did not recommend further therapy. She was ataxic and unsteady per PT note. Patient is still on the TCU list. LUIS ANGEL and AMBER CM will follow. Kareen RED HIGH RAW SUGAR BOILER
[2021-09-22 12:05] LABS: Bedside Glucose 299 mg/dL (70-110)
--- NOTE | 2021-09-22 15:49 | NURSING ---
This RN reviewed all SN charting and was with SN during all medication administration.
[2021-09-22] MEDS: 0.9% Saline Lock 10 ML Syringe IV ×2 (18:28→20:32)
[2021-09-22] MEDS: Furosemide 20 MG/2 ML VIAL IV (18:28)
[2021-09-22] MEDS: Acetaminophen 325 MG Tablet 650 MG PO (20:32)
[2021-09-22] MEDS: Atorvastatin Calcium 10 MG Tablet PO (20:33)
[2021-09-22] MEDS: amLODIPine 10 MG Tablet PO (20:34)
[2021-09-23] VITALS (7 sets, daily range): BP systolic 119–134; BP diastolic 52–63; PULSE 61–65; RESP 12–18; TEMP 36.8–36.9; O2SAT 86–99
[2021-09-23] MEDS: hydrALAZINE 25 MG Tablet PO ×2 (06:00→13:27)
[2021-09-23] MEDS: Levothyroxine 88 MCG Tablet PO (06:01)
[2021-09-23] MEDS: Enoxaparin 40 MG/0.4 ML Syringe SC (06:01)
[2021-09-23] MEDS: Cholecalciferol (VIT D3) 25 MCG TABLET (1,000 UNITS) 125 MCG PO (09:18)
[2021-09-23] MEDS: Losartan Potassium 100 MG Tablet PO (09:18)
[2021-09-23] MEDS: guaiFENesin 600 MG Tablet PO (09:18)
[2021-09-23] MEDS: Clopidogrel Bisulfate 75 MG Tablet PO (09:18)
--- NOTE | 2021-09-23 10:23 | PN.HOSP_ITS ---
Subjective Subjective Patient seen and examined. Reports improvement in breathing. Denies further fever, chills. Reports generalized weakness, amendable to TCU pending acceptance. Objective Data Objective Data Vital Signs: Vital Signs Temp Pulse Resp BP Pulse Ox 98.5 F 64 12 119/52 L 99 09/23/21 08:50 09/23/21 08:50 09/23/21 08:50 09/23/21 08:50 09/23/21 08:50 Oxygen Flow Rate (L/min) 1 Oxygen Delivery Method Nasal Cannula Weight: 109 lb 2.061 oz Body Mass Index (BMI) 19.9 Intake & Output: Intake and Output for Last 24 Hours 09/21/21 09/22/21 09/23/21 23:59 23:59 23:59 Intake Total 1305 / 1455 455.25 / 455.25 220 / 220 Output Total 200 / 200 1500 / 1500 Balance 1305 / 1455 255.25 / 255.25 -1280 / -1280 Lab / Micro Data Result Diagrams: 09/22/21 05:26 09/22/21 05:26 Labs: Laboratory Results - last 24 hr 09/22/21 11:55: POC Glucose 299 H Micro: Microbiology 09/20/21 18:21 Blood Culture (Wb) - Anticubital Right Blood Culture - Preliminary No growth in 48 hours. 09/20/21 18:09 Blood Culture (Wb) - Anticubital Left Blood Culture - Preliminary No growth in 48 hours. 09/21/21 07:35 Urine, Clean Catch Legionella Antigen - Final 09/21/21 07:35 Urine, Clean Catch Streptococcus pneumoniae Antigen (M - Final 09/20/21 20:30 Mucosa - Nasopharyngeal Respiratory Panel (PCR) - Final 09/20/21 14:20 Nasal Secretion SARS-CoV-2 Antigen (Rapid) - Final Physical Exam Const alert, oriented x3 and no apparent distress Orientation / Consciousness: awake, oriented to person, oriented to place and oriented to time HEENT normocephalic and moist oral mucous membranes Eyes PERRL, EOMs intact bilaterally and conjunctivae normal Neck no lymphadenopathy Resp Auscultation: crackles bilateral (Scattered) and diminished lung sounds Cardio regular rate, regular rhythm and no murmurs Peripheral Pulses: pulses 2+ throughout GI normal to inspection, nondistended, normoactive bowel sounds, non-tender and non-distended Extremity normal to inspection Skin no rashes or lesions noted Lesions: no lesions Rashes: no rashes Trauma: no lacerations or abrasions Neuro CN's II-XII intact bilaterally, no focal motor deficits, no sensory deficits noted and deep tendon reflexes 2+ bilaterally Psych mental status grossly normal and affect normal Assessment & Plan Assessment/Plan (1) Community acquired pneumonia: (2) Acute hypoxemic respiratory failure: PLAN: 1. Acute hypoxic respiratory failure secondary to bilateral co mmunity-acquired pneumonia-Covid negative. CTA of chest negative for PE, bilateral lower lobe infiltrates. Respiratory panel negative. IV azithromycin and IV Rocephin. Send sputum for culture if patient is able to produce sample. Blood cultures with no growth. Albuterol and DuoNeb aerosols. Continue supplement oxygen to maintain O2 at above 90%. Wean oxygen as tolerated. Patient overall improving. Awaiting SNF acceptance. 2. Elevated liver enzymes-suspect secondary to acute infection. Trend liver profile. Repeat improved. 3. Type 2 diabetes mellitus-Metformin on hold. Per PCP, patient has been resistant to insulin. Now amendable. Lantus 8 units nightly. Accu-Cheks with sliding scale insulin. Plan to continue Januvia at discharge and hold glipizide. 4. Right carotid artery disease-following with vascular surgery. Most recent CTA of neck 11/07/2020 demonstrated greater than 70% stenosis of the right internal carotid. Patient reports she was referred to [facility] and has appointment in November for further evaluation. Continue Plavix, statin. 5. Hypertension-stable, continue amlodipine, hydralazine, losartan. 6. Hyperlipidemia-continue statin. 7. Hypothyroidism-continue Synthroid regimen. 8. Depression-on venlafaxine. DVT prophylaxis- Lovenox sc Discharge plan: TCU pending acceptance. This patient was seen by RADHA Montano under the supervision of Dr. Serra.
[2021-09-23] MEDS: Insulin Lispro 100 UNIT/ML INSULN.PEN SC (10:55)
--- NOTE | 2021-09-23 11:22 | CASEMGMT ---
LUIS ANGEL spoke with patient this am and she is agreeable to go to TCU. LUIS ANGEL then told her we will have to wait on her insurance to approve her before she can go. She asked if this would happen before tomorrow. LUIS ANGEL told her it will likely happen today. LUIS ANGEL told her SW will let her know when SW hears something. LUIS ANGEL then received a call from Betty in TCU and patient was approved. LUIS ANGEL notified Nurse Practitioner. LUIS ANGEL went to notify patient, but she was getting patient care. LUIS ANGEL will try again. Kareen Starr LIQUOR DEPARTMENT MANAGER [employer]
--- NOTE | 2021-09-23 11:28 | CASEMGMT ---
SW did notify RN and patient about patient's approval and that she will go to TCU today. Plan: d/c to [facility] TCU under skilled level of care. Kareen RED
--- NOTE | 2021-09-23 11:57 | PCM.TXEXTCAR ---
Documented by User: Pat Santiago [employer], [employer] 09/23/21 12:13 Diet 09/20/21 18:40 Diet: Consistent Carb - Calorie Controlled Food consistency:: Regular Liquid Consistency:: Regular/Thin Dietary Modifications:: Cardiac / Heart Healthy Type of Dietary Supplement:: Glucerna Shake Diet Comments: 120ml glucerna shake TID w/ meals How many daily calories?: 1600 calorie Routine Orders/Code Status Enema Type: Fleetz Enema Frequency: Daily PRN Suppository Type: Dulcolax 10mg Suppository Frequency: Daily PRN O2 Liters per Minute: 2 O2 Frequency: Continuous Keep PO Greater than or Equal to (%): 90 Routine Lab Work: - (Weekly CBC, BMP) Code Status: DNRCC-A (No intubation) Suggestions for Active Care Change Position every (hours): 2 Times a day to sit in chair: 3 Therapies Physical Therapy: Eval and Treat Occupational Therapy: Eval and Treat Problem/Diagnosis (1) Community acquired pneumonia: Status: Acute (2) Acute hypoxemic respiratory failure: Status: Acute Allergies/Procedures Done in Hospital Allergies metformin Allergy (Severe, Verified 09/20/21 14:49) Rash neomycin [Neomycin] Allergy (Severe, Verified 09/20/21 14:49) Unknown Tetracyclines Allergy (Severe, Verified 09/20/21 14:49) Anaphylaxis Sulfa (Sulfonamide Antibiotics) Allergy (Verified 09/20/21 14:49) Unknown Procedures: None Type of Care/Length of Stay Estimated LOS: Convalescent Care Less Than 30 days Type of Care Needed: Skilled Rehab Potential: Fair Prognosis: Fair Additional Orders/Day of Discharge H&P will serve as current which was dated: 09/20/21 Day of Discharge: 09/23/21 Dietary and Speech Recommendations Dietitian Recommendations/Changes: Continue 1600 calorie; consistent carbohydrate/cardiac diet as ordered. Will add 120ml glucerna shake TID w/ meals. Discharge Plan Admission Admit Date/Time: 09/20/21 18:27 Primary Reason for Your Visit: bilateral community-acquired pneumonia Attending Provider: Radha Serra Primary Care Provider: Karla Bhagat Discharge Orders/Prescriptions Prescriptions: New Lantus Solostar U-100 Insulin 100 unit/mL (3 mL) Insulin Pen 8 units subcut QHS Qty: 0 RF: 0 albuterol sulfate 2.5 mg /3 mL (0.083 %) Solution For Nebulization 2.5 mg inhalation Q2H PRN PRN (Reason: Shortness of Breath/Wheezing) Qty: 0 RF: 0 furosemide 40 mg Tablet 40 mg PO DAILY Qty: 0 RF: 0 amoxicillin-pot clavulanate 875-125 mg Tablet 875 mg PO BID 5 Days Qty: 9 RF: 0 Continued levothyroxine [Synthroid] 88 mcg tablet 88 mcg PO DAILY Qty: 90 RF: 3 losartan 100 mg tablet 100 mg PO DAILY Qty: 90 RF: 3 rosuvastatin 5 mg tablet 5 mg PO DAILY RF: 0 clopidogrel 75 mg tablet 75 mg PO DAILY RF: 0 cholecalciferol (vitamin D3) 125 mcg (5,000 unit) capsule 125 mcg PO DAILY RF: 0 hydralazine 25 mg tablet 50 mg PO TID RF: 0 tramadol 50 mg tablet 50 mg PO TID PRN (Reason: Pain) RF: 0 amlodipine 10 mg tablet 10 mg PO QHS RF: 0 Januvia 100 mg tablet 100 mg PO DAILY RF: 0 Discontinued glipizide 5 mg tablet 2.5 mg PO DAILY RF: 0 Referrals / Follow Up: Karla Bhagat MD [Primary Care Provider] - In 1 Week Aaron Wilkerson NP, [employer]-C [Nurse Practitioner] - See Referral Note (As scheduled 11/05/2021) Disposition Disposition (needs filled in before D/C Order can be placed): Care Home Facility Documented by User: Dr. Radha Serra MD 09/23/21 13:09 Allergies/Procedures Done in Hospital Allergies metformin Allergy (Severe, Verified 09/20/21 14:49) Rash neomycin [Neomycin] Allergy (Severe, Verified 09/20/21 14:49) Unknown Tetracyclines Allergy (Severe, Verified 09/20/21 14:49) Anaphylaxis Sulfa (Sulfonamide Antibiotics) Allergy (Verified 09/20/21 14:49) Unknown Discharge Plan Admission Admit Date/Time: 09/20/21 18:27 Primary Reason for Your Visit: bilateral community-acquired pneumonia Attending Provider: Radha Serra Primary Care Provider: Karla Bhagat Discharge Orders/Prescriptions Prescriptions: New Lantus Solostar U-100 Insulin 100 unit/mL (3 mL) Insulin Pen 8 units subcut QHS Qty: 0 RF: 0 albuterol sulfate 2.5 mg /3 mL (0.083 %) Solution For Nebulization 2.5 mg inhalation Q2H PRN PRN (Reason: Shortness of Breath/Wheezing) Qty: 0 RF: 0 furosemide 40 mg Tablet 40 mg PO DAILY Qty: 0 RF: 0 amoxicillin-pot clavulanate 875-125 mg Tablet 875 mg PO BID 5 Days Qty: 9 RF: 0 Continued levothyroxine [Synthroid] 88 mcg tablet 88 mcg PO DAILY Qty: 90 RF: 3 losartan 100 mg tablet 100 mg PO DAILY Qty: 90 RF: 3 rosuvastatin 5 mg tablet 5 mg PO DAILY RF: 0 clopidogrel 75 mg tablet 75 mg PO DAILY RF: 0 cholecalciferol (vitamin D3) 125 mcg (5,000 unit) capsule 125 mcg PO DAILY RF: 0 hydralazine 25 mg tablet 50 mg PO TID RF: 0 tramadol 50 mg tablet 50 mg PO TID PRN (Reason: Pain) RF: 0 amlodipine 10 mg tablet 10 mg PO QHS RF: 0 Januvia 100 mg tablet 100 mg PO DAILY RF: 0 Discontinued glipizide 5 mg tablet 2.5 mg PO DAILY RF: 0 Referrals / Follow Up: Karla Bhagat MD [Primary Care Provider] - In 1 Week Aaron Wilkerson NP, [employer]-C [Nurse Practitioner] - See Referral Note (As scheduled 11/05/2021) Disposition Disposition (needs filled in before D/C Order can be placed): Care Home Facility
--- NOTE | 2021-09-23 12:13 | DS.PCM_ITS ---
Documented by User: Pat Santiago NP, [employer] CLERK-[employer] 09/23/21 12:25 Providers Date of Admission: 09/20/21 Date of Discharge: 09/23/21 Primary Care Physician: Dr. Karla Bhagat MD Reason For Visit: ACUTE HYPOXIC RESPIRATORY FAILURE/CAP Diagnosis Discharge Diagnosis (1) Community acquired pneumonia: Status: Acute Code(s): J18.9 - Pneumonia, unspecified organism (2) Acute hypoxemic respiratory failure: Status: Acute Code(s): J96.01 - Acute respiratory failure with hypoxia Medications at Discharge Home Medications Synthroid 88 mcg tablet 88 mcg PO DAILY #90 tab NS 07/16/20 rosuvastatin 5 mg tablet 5 mg PO DAILY tab 10/21/20 cholecalciferol (vitamin D3) 125 mcg (5,000 unit) capsule 125 mcg PO DAILY 10/30/20 clopidogrel 75 mg tablet 75 mg PO DAILY tab 10/30/20 hydralazine 25 mg tablet 50 mg PO TID 04/30/21 tramadol 50 mg tablet 50 mg PO TID PRN 04/30/21 amlodipine 10 mg PO QHS 09/20/21 Januvia 100 mg PO DAILY 09/21/21 albuterol sulfate 2.5 mg INHALATION Q2H PRN PRN #0 ml 09/23/21 amoxicillin-pot clavulanate 875 mg PO BID 09/23/21 furosemide 40 mg PO DAILY 09/23/21 insulin glargine [Lantus Solostar U-100 Insulin] 8 units SUBCUT QHS 09/23/21 losartan 100 mg PO DAILY 09/23/21 Hospital Course Operations None Procedures None Summary of Care Provided Minutes Spent on Discharge: 35 Hospital Course: Patient is a 81-year-old female admitted 09/20/2021 due to shortness of breath, fever. 1. Acute hypoxic respiratory failure secondary to bilateral community-acquired pneumonia, small bilateral pleural effusions-Covid negative. CTA of chest negative for PE, bilateral lower lobe infiltrates. Respiratory panel negative. IV azithromycin and IV Rocephin during admission. Oral Augmentin at discharge to complete course. Blood cultures with no growth. Continue supplemental oxygen to maintain O2 at or above 90%, wean as tolerated. Patient noted to have fine crackles on exam, echocardiogram from July 2020 demonstrated an EF of 65%, RVSP estimated to be 42 mmHg. IV Lasix x2 during admission. Discharged on Lasix 40 mg daily. Follow-up with PCP in 1 week and cardiology as scheduled. TCU at discharge for rehab. 2. Elevated liver enzymes-suspect secondary to acute infection. Liver enzymes trended down. 3. Type 2 diabetes mellitus- Per PCP, patient has been resistant to insulin. Now amendable. Lantus 8 units nightly. Hold glipizide at discharge. Continue Januvia. Follow-up with PCP for further insulin adjustment. 4. Right carotid artery disease-following with vascular surgery. Most recent CTA of neck 11/07/2020 demonstrated greater than 70% stenosis of the right i nternal carotid. Patient reports she was referred to [facility] and has appointment in November for further evaluation. Continue Plavix, statin. 5. Hypertension-stable, continue amlodipine, hydralazine, losartan. 6. Hyperlipidemia-continue statin. 7. Hypothyroidism-continue Synthroid regimen. 8. Depression-on venlafaxine. Physical Exam Const alert, oriented x3 and no apparent distress Orientation / Consciousness: awake, oriented to person, oriented to place and oriented to time HEENT normocephalic and moist oral mucous membranes Eyes PERRL, EOMs intact bilaterally and conjunctivae normal Neck no lymphadenopathy Resp Scattered fine crackles Auscultation: diminished lung sounds Cardio regular rate, regular rhythm and no murmurs Peripheral Pulses: pulses 2+ throughout GI normal to inspection, nondistended, normoactive bowel sounds, non-tender and non-distended Extremity normal to inspection Extremity Narrative: + right carotid bruit Skin no rashes or lesions noted Lesions: no lesions Rashes: no rashes Trauma: no lacerations or abrasions Neuro CN's II-XII intact bilaterally, no focal motor deficits, no sensory deficits noted and deep tendon reflexes 2+ bilaterally Psych mental status grossly normal and affect normal Patient seen and examined prior to discharge. Physical assessment as noted above. Patient is stable for discharge with follow up recommendations as noted above. This patient was seen by RADHA Montano under the supervision of Dr. Serra. Weight / BMI Weight Weight: 109 lb 2.061 oz Body Mass Index (BMI) 19.9 ABG / Lab / Microbiology Data Result Diagrams: 09/22/21 05:26 09/22/21 05:26 Microbiology: Microbiology 09/20/21 18:21 Blood Culture (Wb) - Anticubital Right Blood Culture - Preliminary No growth in 48 hours. 09/20/21 18:09 Blood Culture (Wb) - Anticubital Left Blood Culture - Preliminary No growth in 48 hours. 09/21/21 07:35 Urine, Clean Catch Legionella Antigen - Final 09/21/21 07:35 Urine, Clean Catch Streptococcus pneumoniae Antigen (M - Final 09/20/21 20:30 Mucosa - Nasopharyngeal Respiratory Panel (PCR) - Final 09/20/21 14:20 Nasal Secretion SARS-CoV-2 Antigen (Rapid) - Final Meaningful Use Info Meaningful Use Diagnoses (Choose all that apply): None applicable Discharge Plan Admission Admit Date/Time: 09/20/21 18:27 Primary Reason for Your Visit: bilateral community-acquired pneumonia Attending Provider: Radha Serra Primary Care Provider: Karla Bhagat Discharge Orders/Prescriptions Prescriptions: New albuterol sulfate 2.5 mg /3 mL (0.083 %) Solution For Nebulization 2.5 mg inhalation Q2H PRN PRN (Reason: Shortness of Breath/Wheezing) Qty: 0 RF: 0 Continued levothyroxine [Synthroid] 88 mcg tablet 88 mcg PO DAILY Qty: 90 RF: 3 rosuvastatin 5 mg tablet 5 mg PO DAILY RF: 0 clopidogrel 75 mg tablet 75 mg PO DAILY RF: 0 cholecalciferol (vitamin D3) 125 mcg (5,000 unit) capsule 125 mcg PO DAILY RF: 0 hydralazine 25 mg tablet 50 mg PO TID RF: 0 tramadol 50 mg tablet 50 mg PO TID PRN (Reason: Pain) RF: 0 amlodipine 10 mg tablet 10 mg PO QHS RF: 0 Januvia 100 mg tablet 100 mg PO DAILY RF: 0 Discontinued glipizide 5 mg tablet 2.5 mg PO DAILY RF: 0 No Action furosemide 40 mg tablet 40 mg PO DAILY RF: 0 losartan 100 mg tablet 100 mg PO DAILY RF: 0 amoxicillin-pot clavulanate 875-125 mg tablet 875 mg PO BID RF: 0 Lantus Solostar U-100 Insulin 100 unit/mL (3 mL) insulin pen 8 units subcut QHS RF: 0 Referrals / Follow Up: Karla Bhagat MD [Primary Care Provider] - In 1 Week Aaron Wilkerson NP, [employer]-C [Nurse Practitioner] - See Referral Note (As scheduled 11/05/2021) Disposition Disposition (needs filled in before D/C Order can be placed): [facility] Documented by User: Dr. Radha Serra MD 09/23/21 16:39 Providers Date of Admission: 09/20/21 Reason For Visit: ACUTE HYPOXIC RESPIRATORY FAILURE/CAP Medications at Discharge Home Medications Synthroid 88 mcg tablet 88 mcg PO DAILY #90 tab NS 07/16/20 rosuvastatin 5 mg tablet 5 mg PO DAILY tab 10/21/20 cholecalciferol (vitamin D3) 125 mcg (5,000 unit) capsule 125 mcg PO DAILY 10/30/20 clopidogrel 75 mg tablet 75 mg PO DAILY tab 10/30/20 hydralazine 25 mg tablet 50 mg PO TID 04/30/21 tramadol 50 mg tablet 50 mg PO TID PRN 04/30/21 amlodipine 10 mg PO QHS 09/20/21 Januvia 100 mg PO DAILY 09/21/21 albuterol sulfate 2.5 mg INHALATION Q2H PRN PRN #0 ml 09/23/21 amoxicillin-pot clavulanate 875 mg PO BID 09/23/21 furosemide 40 mg PO DAILY 09/23/21 insulin glargine [Lantus Solostar U-100 Insulin] 8 units SUBCUT QHS 09/23/21 losartan 100 mg PO DAILY 09/23/21 ABG / Lab / Microbiology Data Result Diagrams: 09/22/21 05:26 09/22/21 05:26 Discharge Plan Admission Admit Date/Time: 09/20/21 18:27 Primary Reason for Your Visit: bilateral community-acquired pneumonia Attending Provider: Radha Serra Primary Care Provider: Karla Bhagat Discharge Orders/Prescriptions Prescriptions: New albuterol sulfate 2.5 mg /3 mL (0.083 %) Solution For Nebulization 2.5 mg inhalation Q2H PRN PRN (Reason: Shortness of Breath/Wheezing) Qty: 0 RF: 0 Continued levothyroxine [Synthroid] 88 mcg tablet 88 mcg PO DAILY Qty: 90 RF: 3 rosuvastatin 5 mg tablet 5 mg PO DAILY RF: 0 clopidogrel 75 mg tablet 75 mg PO DAILY RF: 0 cholecalciferol (vitamin D3) 125 mcg (5,000 unit) capsule 125 mcg PO DAILY RF: 0 hydralazine 25 mg tablet 50 mg PO TID RF: 0 tramadol 50 mg tablet 50 mg PO TID PRN (Reason: Pain) RF: 0 amlodipine 10 mg tablet 10 mg PO QHS RF: 0 Januvia 100 mg tablet 100 mg PO DAILY RF: 0 Discontinued glipizide 5 mg tablet 2.5 mg PO DAILY RF: 0 No Action furosemide 40 mg tablet 40 mg PO DAILY RF: 0 losartan 100 mg tablet 100 mg PO DAILY RF: 0 amoxicillin-pot clavulanate 875-125 mg tablet 875 mg PO BID RF: 0 Lantus Solostar U-100 Insulin 100 unit/mL (3 mL) insulin pen 8 units subcut QHS RF: 0 Referrals / Follow Up: Karla Bhagat MD [Primary Care Provider] - In 1 Week Aaron Wilkerson NP, [employer] CLERK-C [Nurse Practitioner] - See Referral Note (As scheduled 11/05/2021) Disposition Disposition (needs filled in before D/C Order can be placed): [facility] Charges/Coding Addendum Addendum: This patient was seen in conjunction with Pat Santiago. I have independently interviewed and examined the patient and reviewed pertinent historical, laboratory, and other data. I have reviewed her note and concur with her documentation 81-year-old female with multiple comorbidities who comes in with progressive shortness of breath, fever and diarrhea. She is fully vaccinated for acute COVID-19 infection. She had just returned from [place]. Her CTA of the chest was negative for acute PE. Showed bilateral infiltrates. Her admitting blood work was unremarkable. Patient was managed as community-acquired pneumonia. She continued to improve She was skilled for discharge to [facility] facility. On the day of discharge, patient was seen and examined. Physical Exam: Gen: Appears comfortable, frail, on 2 L oxygen, not pale, not jaundiced CVS:HS I +II, regular, no murmurs RESP: Diminished at lung bases GI: BS present and normal, soft, nontender, no palpable organs EXT:No edema Visit Charges Inpatient E&M: 25209 Disch Hosp
--- NOTE | 2021-09-23 12:35 | PHA.DC.MR ---
Pharmacy Service has performed discharge medication reconciliation for this patient. The patient's discharge medication list was reviewed for discrepancies and discrepancies were resolved. Home Medications Synthroid 88 mcg tablet 88 mcg PO DAILY #90 tab NS 07/16/20 losartan 100 mg tablet 100 mg PO DAILY #90 tab 07/16/20 rosuvastatin 5 mg tablet 5 mg PO DAILY tab 10/21/20 cholecalciferol (vitamin D3) 125 mcg (5,000 unit) capsule 125 mcg PO DAILY 10/30/20 clopidogrel 75 mg tablet 75 mg PO DAILY tab 10/30/20 hydralazine 25 mg tablet 50 mg PO TID 04/30/21 tramadol 50 mg tablet 50 mg PO TID PRN 04/30/21 amlodipine 10 mg PO QHS 09/20/21 Januvia 100 mg PO DAILY 09/21/21 albuterol sulfate 2.5 mg INHALATION Q2H PRN PRN #0 ml 09/23/21 amoxicillin-pot clavulanate 875 mg PO BID 5 Days #9 tab 09/23/21 furosemide 40 mg PO DAILY #0 tab 09/23/21 insulin glargine [Lantus Solostar U-100 Insulin] 8 units SUBCUT QHS #0 ml 09/23/21
[2021-09-23] MEDS: Furosemide 40 MG/4 ML Vial IV (13:25)
--- NOTE | 2021-09-23 14:32 | NURSING ---
Report called to Enedina SANFORD at 1412.
== END 2021-09-23 14:35 | disposition skilled nursing facility (03) | DRG 195 ==
LOC: ED 17:52 → PCU 19:08
PROVIDERS: Family Medicine; Nurse Practitioner Family; Admitting Provider Internal Medicine; Emergency Provider Emergency Medicine; PCP Internal Medicine; Visit Provider Internal Medicine
DX: J18.9 Pneumonia, unspecified organism (principal); D64.9 Anemia, unspecified; E11.65 Type 2 diabetes mellitus with hyperglycemia; E03.9 Hypothyroidism, unspecified; E55.9 Vitamin D deficiency, unspecified; I77.9 Disorder of arteries and arterioles, unspecified; E78.5 Hyperlipidemia, unspecified; I10 Essential (primary) hypertension; E89.0 Postprocedural hypothyroidism; I65.23 Occlusion and stenosis of bilateral carotid arteries; Z79.02 Long term (current) use of antithrombotics/antiplatelets; Z23 Encounter for immunization; R74.01 Elevation of levels of liver transaminase levels; F32.A Depression, unspecified; Z79.899 Other long term (current) drug therapy; Z79.84 Long term (current) use of oral hypoglycemic drugs; Z79.890 Hormone replacement therapy; Z79.891 Long term (current) use of opiate analgesic
CPT/HCPCS: 36415; 71045; 71275; 80048; 80053; 80076; 82962; 83605; 83735; 84100; 84484; 85025; 85379; 85610; 87040; 87426; 87449; 87633; 87635; 87641; 93005; 94640; 94667; 97162; 97165; 97530; 97535; 99283; G0008; J7030; J7040; J7050; Q9967; U0005; 90686; A4216; J0696; J1940; U0003

== ENCOUNTER 2021-09-23 14:54 | Inpatient (IN) | payer MEDICARE, SELFPAY ==
[2021-09-23 15:13] VITALS: BP 124/63; PULSE 59; RESP 16; TEMP 36.3; O2SAT 98; BMI 20.4
--- NOTE | 2021-09-23 16:04 | NURSING ---
PT TAKES OWN BLOOD SUGAR WITH HER FREE STYLE METER.
--- NOTE | 2021-09-23 16:05 | NURSING ---
HS BLOOD SUGAR 299.
[2021-09-23 16:15] VITALS: PULSE 59; RESP 16; O2SAT 97
[2021-09-23] MEDS: Glucerna Shake 120 ML LIQUID PO (18:40)
[2021-09-23 20:04] VITALS: O2SAT 94
[2021-09-23] MEDS: LINAGLIPTIN 5 MG TABLET PO (20:04)
[2021-09-23] MEDS: Amox/Clavulanate 875 MG Tablet PO (20:04)
--- NOTE | 2021-09-23 20:48 | HP.PCM_ITS ---
HPI - General General Date of Admission: 09/23/21 HPI Narrative 09/20/2021 ELLEN ESTRADA, is a 81 Female who presents to [facility] with fever. 09/20/2021 EKG sinus rhythm with premature supraventricular contractions, septal infarct, age undetermined. Fever, chest pain, malaise x 2 days. Fever 100.7, Chest tightness, bloody nose, diarrhea. Covid vaccine up to date. Recent airplane travel to [place] to see family. D-dimer 3.41, CTA chest negative negative pulmonary embolism, but showed bibasilar infiltrates versus atelectasis with small bilateral pleural effusions. Albuterol given. covid19 antigen/PCR negative. Chest X-ray shows multilobar pneumonia. Pulsox 87% on room air, oxygen applied. Rocephin, Azithromycin, Duoneb given. 09/20/2021 Admit to Hospital. Rocephin, Azithromycin, Respiratory panel, blood cultures, sputum cultures for pneumonia. Trend liver enzymes for elevated liver enzymes. 09/21/2021 Fever overnight, shortness of breath improving, oxygen decreased to 2 liters per nasal cannula. Continue Rocephin, Azithromycin for pneumonia. Liver enzymes improved. Lantus started for diabetes. 09/22/2021 Ongoing shortness of breath, fever, chills continue. 09/23/2021 Respiratory panel negative, blood culture negative. Antibiotics changed to Augmentin. Lasix added for crackles on lung exam. 09/23/2021 Admit to TCU with debility, here for rehabilitation, strengthening, prior to discharge home alone. [facility] Medical History Bilateral carotid bruits Carotid artery stenosis Carotid stenosis, bilateral Chronic constipation Depression Diabetes mellitus Dizziness Essential hypertension Hyperlipidemia Hypothyroidism Valvular heart disease Home Medications Synthroid 88 mcg tablet 88 mcg PO DAILY #90 tab NS 07/16/20 [Rx Last Taken Unknown] rosuvastatin 5 mg tablet 5 mg PO DAILY tab 10/21/20 [History Last Taken Unknown] cholecalciferol (vitamin D3) 125 mcg (5,000 unit) capsule 125 mcg PO DAILY 10/30/20 [History Last Taken Unknown] clopidogrel 75 mg tablet 75 mg PO DAILY tab 10/30/20 [History Last Taken Unknown] hydralazine 25 mg tablet 50 mg PO TID 04/30/21 [History Last Taken Unknown] tramadol 50 mg tablet 50 mg PO TID PRN 04/30/21 [History Last Taken Unknown] amlodipine 10 mg PO QHS 09/20/21 [History Last Taken Unknown] Januvia 100 mg PO DAILY 09/21/21 [History Last Taken Unknown] albuterol sulfate 2.5 mg INHALATION Q2H PRN PRN #0 ml 09/23/21 [Rx Last Taken Unknown] amoxicillin-pot clavulanate 875 mg PO BID 09/23/21 [History Last Taken Unknown] furosemide 40 mg PO DAILY 09/23/21 [History Last Taken Unknown] insulin glargine [Lantus Solostar U-100 Insulin] 8 units SUBCUT QHS 09/23/21 [History Last Taken Unknown] losartan 100 mg PO DAILY 09/23/21 [History Last Taken Unknown] Allergy/AdvReac Type Severity Reaction Status Date / Time metformin Allergy Severe Rash Verified 09/20/21 14:49 neomycin [Neomycin] Allergy Severe Unknown Verified 09/20/21 14:49 Tetracyclines Allergy Severe Anaphylaxis Verified 09/20/21 14:49 Sulfa (Sulfonamide Allergy Unknown Verified 09/20/21 14:49 Antibiotics) Family History Mother Thyroid disorder Father Alzheimer disease Surgical History History of foot surgery History of left heart catheterization (12/28/14) History of thyroidectomy History of tonsillectomy and adenoidectomy Social History (Updated 09/23/21 @ 20:[address] Sohail Grande MD) household members: none Smoking Status: Former smoker alcohol intake: current alcohol intake frequency: a few times a week Alcohol type: wine substance use type: does not use caffeine: Yes Type: coffee Number of servings: 1 ROS Constitutional Constitutional: Denies chills, fever(s) or weight gain ENT HEENT: Denies headache(s), nasal congestion or nasal discharge Cardiovascular Cardiovascular: Denies chest pain or palpitations Respiratory/Chest Respiratory/Chest: Denies cough, excessive phlegm production or shortness of breath with exertion Gastrointestinal Gastrointestinal: Denies abdominal pain, nausea or vomiting Genitourinary Genitourinary: Denies dysuria Musculoskeletal Musculoskeletal: Denies joint pain or joint swelling Integumentary Integumentary: Denies rash or wounds Neurologic Neurologic: Denies focal weakness, numbness or tingling Psychiatric Psychiatric: Reports auditory hallucinations; Denies anxiety, depression, homicidal ideation or suicidal ideation Vital Signs Vital Signs Vital Signs: 09/23/21 15:13 09/23/21 16:15 Temperature 97.3 F L Temperature Source Temporal Pulse Rate 59 L 59 L Pulse Rhythm Irregular Pulse Strength Normal (2+) Respiratory Rate 16 16 Respiratory Effort Normal Respiratory Depth Normal Respiratory Pattern Normal Blood Pressure 124/63 H Blood Pressure Mean 83 Blood Pressure Source Monitor Blood Pressure Position Sitting Blood Pressure Location Left Arm Pulse Ox 98 97 Oxygen Delivery Method Nasal Cannula Nasal Cannula Oxygen Flow Rate (L/min) 2 2 Weight Weight: 50.576 kg Body Mass Index (BMI) 20.4 Physical Exam Const alert and oriented x3 General Appearance: cooperative HEENT normocephalic Eyes PERRL and EOMs intact bilaterally Neck supple, no JVD and no carotid bruits Resp normal respiratory effort, normal air movement and clear to auscultation bilaterally Cardio regular rate and regular rhythm GI normal to inspection, nondistended, normoactive bowel sounds, non-tender and non-distended Extremity normal capillary refill General Extremity: Negative for edema Skin no rashes or lesions noted General Skin Exam: no breakdown Psych affect normal Appearance: appropriate Assessment & Plan Assessment/Plan (1) Debility: (2) Pneumonia: (3) Acute respiratory failure with hypoxia: (4) Elevated liver enzymes: (5) Acute diastolic congestive heart failure: (6) Hypothyroidism: (7) Hypertension: (8) Hyperlipidemia: (9) Vitamin D deficiency: (10) Depression: (11) Diabetes mellitus: (12) Coronary artery disease: PLAN: 81 year old female with below past medical history hospitalized for acute respiratory failure with hypoxia secondary to pneumonia, complicated by acute diastolic congestive heart failure, admitted to TCU with debility, here for rehabilitation, strengthening, prior to discharge home alone. * Debility - PT/OT. * Pain - Tramadol 50mg tid prn pain (1-10). * Bowel - Miralax 17gm daily, Senna/colace 1 tablet twice daily, Dulcolax 5mg daily prn. * Adult immunization - Administer prevnar 13, pneumovax 23, fluzone, covid19 vaccine as appropriate. * DVT prophylaxis - Hold, on plavix. * Shortness of breath - Albuterol 2.5mg Q2H prn. * Hypertension - Amlodipine 10mg daily, Losartan 100mg daily, Hydralazine 50mg tid. * Pneumonia - Augmentin 875mg bid thru 09/28/2021. * Hyperlipidemia - Atorvastatin 10mg daily. * Vitamin D deficiency - D3 125mcg daily. * Coronary artery disease - Losartan 100mg daily, Plavix 75mg daily. * Acute diastolic congestive heart failure - Losartan 100mg daily, Hydralazine 50mg tid, Lasix 40mg daily. * Nutrition - Glucerna shake 120ml tidcm. * Diabetes Mellitus II - Tradjenta 5mg daily, Lantus 8 units daily. * Hypothyroidism - Levothyroxine 88mcg daily. * Skin irritation - Calmoseptine topical twice daily.
[2021-09-23 21:38] VITALS: BP 145/69; PULSE 54
[2021-09-23 21:40] VITALS: BP 145/69; PULSE 54
[2021-09-23] MEDS: amLODIPine 10 MG Tablet PO (21:40)
[2021-09-23] MEDS: hydrALAZINE 50 MG Tablet PO (21:40)
[2021-09-23] MEDS: Senna/Docusate Sodium 1 Tablet PO (21:45)
[2021-09-24] VITALS (7 sets, daily range): BP systolic 128–137; BP diastolic 48–59; PULSE 58–64; RESP 16; TEMP 36.4; O2SAT 92–94
[2021-09-24] MEDS: traMADol 50 MG Tablet PO ×3 (05:16→21:03)
[2021-09-24] MEDS: Cholecalciferol (VIT D3) 25 MCG TABLET (1,000 UNITS) 125 MCG PO (05:17)
[2021-09-24] MEDS: Furosemide 40 MG Tablet PO (05:17)
[2021-09-24] MEDS: Atorvastatin Calcium 10 MG Tablet PO (05:17)
[2021-09-24] MEDS: Clopidogrel Bisulfate 75 MG Tablet PO (05:17)
[2021-09-24] MEDS: Polyethylene Glycol 3350 17 GM PACKET PO (05:19)
[2021-09-24] MEDS: Senna/Docusate Sodium 1 Tablet PO ×2 (05:19→17:32)
[2021-09-24] MEDS: Menthol/Lanolin/Calamine/Znox 113 GM Tube 1 APPLIC TOPICAL ×2 (05:22→17:32)
[2021-09-24 06:03] LABS: Absolute Lymphocyte Count 0.79 X10^3/uL (0.83-4.51); Basophil# 0.05 X10^3/uL; Basophil% 1.3 % (0-1); Eosinophil# 0.34 X10^3/uL; Eosinophils% 8.8 % (0-5); Hematocrit 34.2 % (37-47); Hemoglobin 11.6 g/dL (12.0-15.0); Lymphocyte # 0.79 X10^3/ul (0.83-4.51); Lymphocyte % 20.5 % (19-41); Mean Corp Hgb Conc 33.9 g/dL (32-36); Mean Corpuscular Hgb 28.7 pg (27.0-32.0); Mean Corpuscular Volume 84.7 fL (81-99); Mean Platelet Vol. 9.9 fl (6.2-12.0); Monocyte# 0.68 X10^3/uL; Monocyte% 17.7 % (0-10); NRBC Flagged by Analyzer 0 % (0-5); Neutrophil # 1.96 X10^3/uL (2.7-7.7); Neutrophil % 50.9 % (47-70); Platelet Count 206 K/mm3 (150-450); RBC Distribution Width CV 13.8 % (11.6-14.6); RBC Distribution Width SD 43.1 fl (35.1-43.9); Red Blood Count 4.04 M/mm3 (4.2-5.4); White Blood Count 3.9 K/mm3 (4.4-11.0)
[2021-09-24 06:33] LABS: Anion Gap 5 (5-15); BUN 15 mg/dL (7-18); BUN/Creat Ratio 32.7 RATIO (10-20); Calcium,Total 8.9 mg/dL (8.5-10.1); Chloride 102 mmol/L (98-107); Creatinine, Serum 0.46 mg/dL (0.55-1.02); EST Glomerular Filtration Rate 138 mL/min (>60); Est Glom Filt Rate - Afr Amer 167 mL/min (>60); Estimated Creatinine Clearance 33.71 ml/min; Glucose 119 mg/dL (74-106); Potassium 3.7 mmol/L (3.5-5.1); Sodium Level 136 mmol/L (136-145)
[2021-09-24] MEDS: Losartan Potassium 100 MG Tablet PO (06:40)
[2021-09-24] MEDS: hydrALAZINE 50 MG Tablet PO ×3 (06:40→20:50)
--- NOTE | 2021-09-24 07:11 | NURSING ---
Pt BS 128 this morning
[2021-09-24] MEDS: Amox/Clavulanate 875 MG Tablet PO ×2 (08:07→17:31)
[2021-09-24] MEDS: Glucerna Shake 120 ML LIQUID PO ×3 (08:08→17:32)
[2021-09-24] MEDS: Levothyroxine 88 MCG Tablet PO (09:53)
[2021-09-24] MEDS: Tuberculin,Purif.prot.deriv. 50 TU/ML Vial 0.1 ML ID (09:54)
--- NOTE | 2021-09-24 11:31 | CASEMGMT ---
Social Work SW met w/pt for initial assessment. Maintenance Technician 2Nd Shift for [place] present, SW asked her to step out for much of the assessment. SW reviewed code status, pt confirmed her code status is DNRCC-A, pt completed MOLST form, communication to physician, form placed in chart. SW explained to pt that she will have a care plan meeting, likely next week, to review how she is doing and anticipated plan for discharge, discharge date. SW explained to pt that insurance will let us know how long she is authorized to be here. Pt is already stating wants to go home. Pt lives alone, has Alzheimer's and lives at [place], has been there since [facility]. Pt's plan is to return home at discharge, she is open to home health if needed or outpt PT. Pt may need home O2, also may want a referral for Meals on Wheels. SW will continue to follow for discharge needs. STUART Velasquez
--- NOTE | 2021-09-24 11:42 | NURSING ---
BS 199 at lunch time, pt checked with continuous glucose monitoring device
--- NOTE | 2021-09-24 16:13 | PCM.PN.RX ---
Progress Note - Pharmacy Subjective: TCU Admission Objective: Allergies metformin Allergy (Severe, Verified 09/20/21 14:49) Rash neomycin [Neomycin] Allergy (Severe, Verified 09/20/21 14:49) Unknown Tetracyclines Allergy (Severe, Verified 09/20/21 14:49) Anaphylaxis Sulfa (Sulfonamide Antibiotics) Allergy (Verified 09/20/21 14:49) Unknown Current Medications Generic Name Dose Route Start Last Admin Trade Name Freq PRN Reason Stop Dose Admin Albuterol Sulfate 2.5 mg 09/23/21 15:39 Albuterol 2.5 Mg/3 Ml Vial.Neb. INHALATION Q2H PRN PRN Shortness of Breath/Wheezing Amlodipine Besylate 10 mg 09/23/21 22:00 09/23/21 21:40 Amlodipine 10 Mg Tablet PO 10 mg QHS FEDE Administration Amoxicillin/Clavulanate Potassium 875 mg 09/23/21 17:00 09/24/21 08:07 Amox/Clavulanate 875 Mg Tablet PO 09/28/21 17:01 875 mg BIDCM FEDE Administration Atorvastatin Calcium 10 mg 09/24/21 06:00 09/24/21 05:17 Atorvastatin Calcium 10 Mg Tablet PO 10 mg DAILY FEDE Administration Bisacodyl 5 mg 09/23/21 15:50 Bisacodyl 5 Mg Tablet PO DAILY PRN PRN Constipation Calamine/Phenol 1 applic 09/24/21 06:00 09/24/21 05:22 Menthol/Lanolin/Calamine/Znox 113 Gm Tube TOPICAL 1 applic BID FEDE Administration Protocol Cholecalciferol 125 mcg 09/24/21 06:00 09/24/21 05:17 Cholecalciferol (Vit D3) 25 Mcg Tablet (1,000 Units) PO 125 mcg DAILY FEDE Administration Clopidogrel Bisulfate 75 mg 09/24/21 06:00 09/24/21 05:17 Clopidogrel Bisulfate 75 Mg Tablet PO 75 mg DAILY FEDE Administration Furosemide 40 mg 09/24/21 06:00 09/24/21 05:17 Furosemide 40 Mg Tablet PO 40 mg DAILY FEDE Administration Hydralazine HCl 50 mg 09/23/21 22:00 09/24/21 14:53 Hydralazine 50 Mg Tablet PO 50 mg TID FEDE Administration Insulin Glargine 8 units 09/23/21 22:00 09/23/21 21:40 Insulin Glargine 100 Units/Ml Pen SC 8 units QHS FEDE Administration Levothyroxine Sodium 88 mcg 09/24/21 06:00 09/24/21 09:53 Levothyroxine 88 Mcg Tablet PO 88 mcg DAILY EFDE Administration Linagliptin 5 mg 09/23/21 17:00 09/23/21 20:04 Linagliptin 5 Mg Tablet PO 5 mg DINNER FEDE Administration Losartan Potassium 100 mg 09/24/21 06:00 09/24/21 06:40 Losartan Potassium 100 Mg Tablet PO 100 mg DAILY FEDE Administration Nutritional Formula (Lactose Free) 120 ml 09/23/21 17:45 09/24/21 14:05 Glucerna Shake 120 Ml Liquid PO 120 ml TIDCM FEDE Administration Pneumococcal 13-Valent Conj Vacc 0.5 ml 09/25/21 10:00 Pneumoc 13-Erinn Conj-Dip Crm/Pf 0.5 Ml Syringe IM 09/25/21 10:01 .ONCE ONE Polyethylene Glycol 17 gm 09/24/21 06:00 09/24/21 05:19 Polyethylene Glycol 3350 17 Gm Packet PO 17 gm DAILY FEDE Administration Senna/Docusate Sodium 1 tablet 09/23/21 21:15 09/24/21 05:19 Senna/Docusate Sodium 1 Tablet PO 1 tablet BID FEDE Administration Tramadol HCl 50 mg 09/23/21 15:39 09/24/21 14:06 Tramadol 50 Mg Tablet PO 50 mg TID PRN PRN Administration Pain Score 1-10 Tuberculin PPD 0.1 ml 10/01/21 10:00 Tuberculin,Purif.Prot.Deriv. 50 Tu/Ml Vial ID 10/01/21 10:01 X1 ONE Problem List (Last Reviewed 09/23/21 @ 20:[address] Sohail Grande MD) Coronary artery disease (Acute) Diabetes mellitus (Acute) Depression (Acute) Vitamin D deficiency (Acute) Hyperlipidemia (Acute) Hypertension (Chronic) Hypothyroidism (Acute) Acute diastolic congestive heart failure (Acute) Elevated liver enzymes (Acute) Acute respiratory failure with hypoxia (Acute) Pneumonia (Acute) Debility (Acute) Vital Signs Temp Pulse Resp BP Pulse Ox 97.5 F L 63 16 128/48 H 94 09/24/21 16:09 09/24/21 16:09 09/24/21 16:09 09/24/21 16:09 09/24/21 16:09 Oxygen Flow Rate (L/min) 1 Oxygen Delivery Method Nasal Cannula Weight: 50.576 kg Body Mass Index (BMI) 20.4 Sodium 136 mmol/L (136-145) 09/24/21 05:16 Potassium 3.7 mmol/L (3.5-5.1) 09/24/21 05:16 Chloride 102 mmol/L (98-107) 09/24/21 05:16 Carbon Dioxide 29.0 mmol/L (21.0-32.0) 09/24/21 05:16 Anion Gap 5 (5-15) 09/24/21 05:16 BUN 15 mg/dL (7-18) 09/24/21 05:16 Creatinine 0.46 mg/dL (0.55-1.02) L 09/24/21 05:16 Est GFR (MDRD) Af Amer 167 mL/min (>60) 09/24/21 05:16 Est GFR (MDRD) Non-Af 138 mL/min (>60) 09/24/21 05:16 BUN/Creatinine Ratio 32.7 RATIO (10-20) H 09/24/21 05:16 Glucose 119 mg/dL (74-106) H 09/24/21 05:16 Assessment/Plan: 1. Pain: tramadol 50mg PO TID PRN pain 1-10. Please continue to monitor for increased pain, renal function, constipation, PRN usage and respiratory depression. 2. Pneumonia: Augmentin 875mg PO BIDCM thru 09/28/21. Please continue to monitor for S/S of infection and diarrhea. 3. Hypertension/CAD/CHF: amlodipine 10mg PO QHS, losartan 100mg PO daily, hydralazine 50mg PO TID, clopidogrel 75mg PO daily and furosemide 40mg PO daily. Please continue to monitor for S/S of bleeding, hemoglobin (last 11.6g/dL), BP (last 128/48), HR (last 63), swelling, renal function, potassium (last 3.7mmol/L) and sodium (last 136mmol/L). *4. Hyperlipidemia: atorvastatin 10mg PO daily. Please consider ordering a lipid panel if clinically appropriate.Last level from 03/22/2018. Thanks. Please continue to monitor for muscle pain. 5. Shortness of breath: albuterol nebulized solution 2.5mg inhalation Q2H PRN shortness of breath/wheezing. Please continue to monitor for PRN usage. *6. Diabetes Mellitus II: linagliptin 5mg PO dinner and insulin glargine 8units SC QHS. Please consider ordering a hemoglobin A1c (no record in chart) if clinically appropriate. Thanks. Please continue to monitor glucose (last 299mg/dL). *7. Hypothyroidism: Synthroid 88mcg PO daily. Please consider ordering a TSH if clinically appropriate. Last TSH from 03/22/2018. Thanks. Please continue to monitor for S/S of hypo/hyperthyroidism. *8. Vitamin D deficiency: cholecalciferol 125mcg PO daily. Please consider ordering a vitamin D level. Last level from 03/27/2016. Thanks. Psychotropic Medications: None Unnecessary Medications: None Bowel Regimen: Miralax 17gm PO daily, senna/docusate 1T PO BID and bisacodyl 5mg PO daily PRN constipation. Please continue to monitor for constipation and PRN usage. Date of Note:: 09/24/21
[2021-09-24] MEDS: LINAGLIPTIN 5 MG TABLET PO (17:31)
--- NOTE | 2021-09-24 17:50 | NURSING ---
Pt blood sugrar prio
--- NOTE | 2021-09-24 17:50 | NURSING ---
pt blood sugar prior to dinner was 254, checked with pt's continuous glucose monitoring device
[2021-09-24] MEDS: amLODIPine 10 MG Tablet PO (20:45)
[2021-09-24] MEDS: Acetaminophen 500 MG Tablet 1000 MG PO (20:45)
--- NOTE | 2021-09-24 21:24 | NURSING ---
Blood glucose level at this time was 276 mg/dL.
[2021-09-25] VITALS (8 sets, daily range): BP systolic 110–143; BP diastolic 43–64; PULSE 54–65; RESP 18; TEMP 36.2; O2SAT 96–97
[2021-09-25] MEDS: traMADol 50 MG Tablet PO ×3 (05:47→22:12)
[2021-09-25] MEDS: Cholecalciferol (VIT D3) 25 MCG TABLET (1,000 UNITS) 125 MCG PO (05:47)
[2021-09-25] MEDS: Senna/Docusate Sodium 1 Tablet PO ×2 (05:47→16:56)
[2021-09-25] MEDS: Atorvastatin Calcium 10 MG Tablet PO (05:47)
[2021-09-25] MEDS: Polyethylene Glycol 3350 17 GM PACKET PO (05:47)
[2021-09-25] MEDS: Clopidogrel Bisulfate 75 MG Tablet PO (05:47)
[2021-09-25] MEDS: Levothyroxine 88 MCG Tablet PO (05:47)
[2021-09-25] MEDS: Bisacodyl 5 MG Tablet PO (05:47)
[2021-09-25] MEDS: Furosemide 40 MG Tablet PO (05:47)
[2021-09-25] MEDS: Menthol/Lanolin/Calamine/Znox 113 GM Tube 1 APPLIC TOPICAL ×2 (05:51→22:23)
--- NOTE | 2021-09-25 05:52 | NURSING ---
Blood glucose level at 124 mg/dL.
[2021-09-25] MEDS: Amox/Clavulanate 875 MG Tablet PO ×2 (08:38→16:55)
[2021-09-25] MEDS: hydrALAZINE 25 MG Tablet PO ×3 (08:41→22:11)
--- NOTE | 2021-09-25 11:43 | NURSING ---
PT REFUSED THE PREVAR 13. PT STATED SHE WILL GET IT AT HER DOCTORS OFFICE. RN AWARE
[2021-09-25] MEDS: Glucerna Shake 120 ML LIQUID PO ×2 (11:53→16:58)
[2021-09-25] MEDS: Magnesium Citrate 300 ML PO (14:26)
--- NOTE | 2021-09-25 15:11 | NURSING ---
MAG CITRATE GIVEN PER ORDER.
--- NOTE | 2021-09-25 15:16 | NURSING ---
PT BLOOD SUGAR WAS 198 AT LUNCH.
--- NOTE | 2021-09-25 16:54 | CHAPLAIN ---
Type of Pastoral Visit _x__ Initial Visit ___ Follow-up Visit ___ On-call Visit ___ General Patient Visit ___ Spiritual Assessment ___ Family Conference ___ Bereavement ___ Rapid Response ___ Code Blue ___ Other (describe below) Pastoral Care Referral From _x__ Patient ___ Family ___ Nurse ___ Physician ___ Absorption And Adsorption Engineer ___ Recruiter Manager ___ Other (describe below) Sacrament/Intervention _x__ Active listening ___ Anointing ___ Shinto ___ Bereavement ___ Communion _x__ Emilie exploration ___ _x__ Life review _x__ Prayer ___ Reconciliation ___ Sacrament of Sick _x__ Supportive presence ___ Wedding ___ Other (describe below) Pastoral Comments met this patient in a previous admission and was able to reconnect and receive update on situation; pt talks about her spouse that is [facility] of [facility]; pt admits to having feelings of being overwhelmed by the changes in their lives and of her concern for her ; pt has family, friends, and scientology for support; pt welcomes spiritual care and prayer; pt welcomes future visits for support
[2021-09-25] MEDS: LINAGLIPTIN 5 MG TABLET PO (16:56)
--- NOTE | 2021-09-25 17:15 | NURSING ---
PT SUPPER BLOOD SUGAR WAS 214.
[2021-09-25] MEDS: amLODIPine 10 MG Tablet PO (22:09)
[2021-09-26 05:00] VITALS: BP 100/58; PULSE 60
[2021-09-26] MEDS: Cholecalciferol (VIT D3) 25 MCG TABLET (1,000 UNITS) 125 MCG PO (05:51)
[2021-09-26] MEDS: Senna/Docusate Sodium 1 Tablet PO ×2 (05:52→16:53)
[2021-09-26] MEDS: Atorvastatin Calcium 10 MG Tablet PO (05:52)
[2021-09-26 05:53] VITALS: PULSE 60
[2021-09-26] MEDS: Furosemide 40 MG Tablet PO (05:53)
[2021-09-26] MEDS: Clopidogrel Bisulfate 75 MG Tablet PO (05:53)
[2021-09-26] MEDS: Polyethylene Glycol 3350 17 GM PACKET PO (05:54)
[2021-09-26] MEDS: Levothyroxine 88 MCG Tablet PO (05:56)
--- NOTE | 2021-09-26 06:34 | NURSING ---
Patient's blood sugar was 246 last night and 155 this AM @ 0600.
[2021-09-26] MEDS: Amox/Clavulanate 875 MG Tablet PO ×2 (08:23→16:52)
[2021-09-26] MEDS: Menthol/Lanolin/Calamine/Znox 113 GM Tube 1 APPLIC TOPICAL (08:29)
[2021-09-26] MEDS: Nystatin Powder 15gm Bottle 1 APPLIC TOPICAL (08:29)
[2021-09-26] MEDS: Bisacodyl 10 MG Suppository RC (08:30)
--- NOTE | 2021-09-26 10:40 | NURSING ---
PT WAS GIVEN A SUPPOSITORY THIS MORNING AND HAD A POSITIVE RESULT.
--- NOTE | 2021-09-26 11:49 | NURSING ---
PT BLOOD SUGAR WAS 226 AT LUNCH. PT DOES OWN BS WITH FREE STYLE METER.
[2021-09-26 13:00] VITALS: BP 132/62; PULSE 62
[2021-09-26] MEDS: hydrALAZINE 25 MG Tablet PO ×2 (13:00→22:21)
[2021-09-26 13:02] VITALS: BP 132/62; PULSE 62
[2021-09-26 13:38] VITALS: BP 142/67; PULSE 63; RESP 16; TEMP 36.5; O2SAT 94
[2021-09-26] MEDS: Glucerna Shake 120 ML LIQUID PO (16:51)
[2021-09-26] MEDS: LINAGLIPTIN 5 MG TABLET PO (16:52)
--- NOTE | 2021-09-26 16:56 | NURSING ---
PT BLOOD SUGAR 184 FOR SUPPER.
[2021-09-26 22:21] VITALS: BP 135/61; PULSE 68
[2021-09-26] MEDS: amLODIPine 10 MG Tablet PO (22:22)
[2021-09-26] MEDS: traMADol 50 MG Tablet PO (22:22)
--- NOTE | 2021-09-26 22:35 | NURSING ---
Pt's blood sugar 227. Given Andreina Doone cookies for a snack. Did not take insulin at home. Pt observed this nurse administer Lantus [address] order as she reports not being on insulin at home. Instructed pt site for administration include the abdomen, bilateral upper arms, and thighs.
[2021-09-27] VITALS (7 sets, daily range): BP systolic 117–156; BP diastolic 49–78; PULSE 59–66; RESP 16; TEMP 36.3–37; O2SAT 92–96
[2021-09-27] MEDS: Polyethylene Glycol 3350 17 GM PACKET PO (05:50)
[2021-09-27] MEDS: Cholecalciferol (VIT D3) 25 MCG TABLET (1,000 UNITS) 125 MCG PO (05:51)
[2021-09-27] MEDS: Clopidogrel Bisulfate 75 MG Tablet PO (05:52)
[2021-09-27] MEDS: Atorvastatin Calcium 10 MG Tablet PO (05:53)
[2021-09-27] MEDS: Senna/Docusate Sodium 1 Tablet PO ×2 (05:53→17:09)
[2021-09-27] MEDS: Levothyroxine 88 MCG Tablet PO (05:55)
--- NOTE | 2021-09-27 06:00 | NURSING ---
Jeffrey held at this time due to BP at 117/49.
[2021-09-27] MEDS: Amox/Clavulanate 875 MG Tablet PO ×2 (08:24→17:08)
[2021-09-27] MEDS: Glucerna Shake 120 ML LIQUID PO ×3 (08:48→17:08)
--- NOTE | 2021-09-27 12:49 | NURSING ---
Blood sugar before lunch was 189, checked with her continuous glucose monitoring device.
[2021-09-27] MEDS: traMADol 50 MG Tablet PO ×2 (13:34→21:47)
[2021-09-27] MEDS: hydrALAZINE 25 MG Tablet PO ×2 (13:34→21:49)
[2021-09-27] MEDS: Acetaminophen 500 MG Tablet 1000 MG PO (16:17)
[2021-09-27] MEDS: LINAGLIPTIN 5 MG TABLET PO (17:08)
[2021-09-27] MEDS: Menthol/Lanolin/Calamine/Znox 113 GM Tube 1 APPLIC TOPICAL (17:10)
[2021-09-27] MEDS: Nystatin Powder 15gm Bottle 1 APPLIC TOPICAL (17:10)
--- NOTE | 2021-09-27 19:15 | NURSING ---
Pt rang call light and this nurse went into room to answer it. Pt was crying and when asked what was wrong pt stated she was trying to open her salad dressing with her teeth and broke her tooth off. This nurse immediately assessed pt and noted front right tooth was missing and looks like it broke off at gum line, pt c/o of some pain but no bleeding, redness or other injury noted. Pt stated she is going to save her took and will call her dentist and try to get in and see him at the beginning of the week. This nurse sat with patient and provided emotional support until pt was calm. Charge nurse updated.
--- NOTE | 2021-09-27 21:44 | NURSING ---
Addendum entered by Ignacia Jaeger 09/28/21 00:49: correction: blood sugar was 174 Original Note: Patient's blood sugar is 186 tonight.
[2021-09-27] MEDS: amLODIPine 10 MG Tablet PO (21:49)
[2021-09-28 05:57] VITALS: BP 123/54; PULSE 61
[2021-09-28] MEDS: Levothyroxine 88 MCG Tablet PO (05:58)
[2021-09-28] MEDS: Polyethylene Glycol 3350 17 GM PACKET PO (05:58)
[2021-09-28] MEDS: Cholecalciferol (VIT D3) 25 MCG TABLET (1,000 UNITS) 125 MCG PO (05:59)
[2021-09-28 06:00] VITALS: PULSE 61
[2021-09-28] MEDS: Atorvastatin Calcium 10 MG Tablet PO (06:00)
[2021-09-28] MEDS: hydrALAZINE 25 MG Tablet PO ×3 (06:00→21:24)
[2021-09-28] MEDS: Clopidogrel Bisulfate 75 MG Tablet PO (06:00)
[2021-09-28] MEDS: Senna/Docusate Sodium 1 Tablet PO ×2 (06:00→18:07)
[2021-09-28] MEDS: Losartan Potassium 100 MG Tablet PO (06:00)
[2021-09-28] MEDS: traMADol 50 MG Tablet PO ×3 (06:05→21:29)
[2021-09-28] MEDS: Amox/Clavulanate 875 MG Tablet PO ×2 (08:20→18:06)
[2021-09-28] MEDS: Glucerna Shake 120 ML LIQUID PO ×3 (08:20→18:06)
[2021-09-28 13:16] VITALS: BP 161/63; PULSE 66
[2021-09-28 13:17] VITALS: BP 161/63; PULSE 66; RESP 16; TEMP 36.5; O2SAT 98
--- NOTE | 2021-09-28 14:10 | NURSING ---
Pt Blood sugar before lunch was 148, checked with her continuous glucose monitoring device
[2021-09-28] MEDS: LINAGLIPTIN 5 MG TABLET PO (18:07)
[2021-09-28] MEDS: Menthol/Lanolin/Calamine/Znox 113 GM Tube 1 APPLIC TOPICAL (18:12)
[2021-09-28] MEDS: Nystatin Powder 15gm Bottle 1 APPLIC TOPICAL (18:13)
--- NOTE | 2021-09-28 18:16 | NURSING ---
Pt Blood sugar before dinner was 204, measured with continuous glucose monitoring device
[2021-09-28 21:24] VITALS: BP 144/57; PULSE 56
[2021-09-28] MEDS: amLODIPine 10 MG Tablet PO (21:24)
[2021-09-28 21:29] VITALS: PULSE 54; RESP 16; O2SAT 96
--- NOTE | 2021-09-28 21:29 | NURSING ---
Blood glucose level at HS was 218 mg/dL.
--- NOTE | 2021-09-28 22:06 | NURSING ---
Patient refusing daily lasix. She also wound like senna dose increased to [address] Grande, verbal order to DC lasix and increase senna dose.
[2021-09-29 05:00] VITALS: BP 111/44; PULSE 57
[2021-09-29] MEDS: Levothyroxine 88 MCG Tablet PO (05:27)
[2021-09-29] MEDS: Polyethylene Glycol 3350 17 GM PACKET PO (05:27)
[2021-09-29] MEDS: Senna/Docusate Sodium 1 Tablet 2 TABLET PO ×2 (05:30→16:45)
[2021-09-29] MEDS: traMADol 50 MG Tablet PO ×3 (05:30→22:18)
[2021-09-29] MEDS: Cholecalciferol (VIT D3) 25 MCG TABLET (1,000 UNITS) 125 MCG PO (05:30)
[2021-09-29] MEDS: Clopidogrel Bisulfate 75 MG Tablet PO (05:30)
[2021-09-29] MEDS: Atorvastatin Calcium 10 MG Tablet PO (05:30)
[2021-09-29 06:46] VITALS: BP 126/76; PULSE 57
[2021-09-29] MEDS: hydrALAZINE 25 MG Tablet PO ×3 (06:46→22:10)
[2021-09-29] MEDS: Losartan Potassium 100 MG Tablet PO (06:46)
--- NOTE | 2021-09-29 06:50 | NURSING ---
Blood glucose level this AM was 92 mg/dL.
[2021-09-29 09:25] VITALS: PULSE 66; RESP 18; O2SAT 96
--- NOTE | 2021-09-29 11:54 | NURSING ---
PT LEFT AT 9:45 AM FOR DENTIST APPOINTMENT,FRIEND TO TRANSPORT. RETURNED AT11:50 AM WITH FRIEND. PER PT SHE WILL BE GETTING A RETAINER TEMPORARY AND THEN A IMPLANT. RN AWARE
[2021-09-29] MEDS: Glucerna Shake 120 ML LIQUID PO ×2 (12:44→16:47)
[2021-09-29 12:52] VITALS: BP 149/58; PULSE 66; RESP 18; TEMP 36.9; O2SAT 96
[2021-09-29 13:00] VITALS: BP 149/58; PULSE 66
--- NOTE | 2021-09-29 13:33 | NURSING ---
PT BLOOD SUGAR WAS 121 FOR LUNCH. PT DOES OWN AND HAS FREE STYLE METER.
--- NOTE | 2021-09-29 13:51 | NURSING ---
Left message for son, Ramin, to call.
--- NOTE | 2021-09-29 15:04 | NURSING ---
Mathew Best, updated on COVID status on the unit.
--- NOTE | 2021-09-29 15:18 | CASEMGMT ---
Social Work Spoke with pt requesting to DC 09/30. IDT agreeable. Pt denies therapy or DME needs. Family to transport. Plan: DC home 09/30, no needs PAULA KirkW
--- NOTE | 2021-09-29 15:39 | NURSING ---
Resident does not want to get the booster at this time.
[2021-09-29] MEDS: LINAGLIPTIN 5 MG TABLET PO (16:44)
--- NOTE | 2021-09-29 17:41 | NURSING ---
pt blood sugar was 184 for supper per pt.
--- NOTE | 2021-09-29 19:43 | PCM.DC.SUM ---
Providers Date of Admission: 09/23/21 Primary Care Physician: Dr. Karla Bhagat MD Reason For Visit: RESPIRATORY FAILURE/PNEUMONIA Diagnosis Discharge Diagnosis (1) Debility: Status: Acute Code(s): R53.81 - Other malaise (2) Pneumonia: Status: Acute Code(s): J18.9 - Pneumonia, unspecified organism (3) Acute respiratory failure with hypoxia: Status: Acute Code(s): J96.01 - Acute respiratory failure with hypoxia (4) Elevated liver enzymes: Status: Acute Code(s): R74.8 - Abnormal levels of other serum enzymes (5) Acute diastolic congestive heart failure: Status: Acute Code(s): I50.31 - Acute diastolic (congestive) heart failure (6) Hypothyroidism: Status: Acute Code(s): E03.9 - Hypothyroidism, unspecified (7) Hypertension: Status: Chronic Code(s): I10 - Essential (primary) hypertension (8) Hyperlipidemia: Status: Acute Code(s): E78.5 - Hyperlipidemia, unspecified (9) Vitamin D deficiency: Status: Acute Code(s): E55.9 - Vitamin D deficiency, unspecified (10) Depression: Status: Acute Code(s): F32.A - Depression, unspecified (11) Diabetes mellitus: Status: Acute Code(s): E11.9 - Type 2 diabetes mellitus without complications (12) Coronary artery disease: Status: Acute Code(s): I25.10 - Atherosclerotic heart disease of [place] coronary artery without angina pectoris Medications at Discharge Home Medications Synthroid 88 mcg tablet 88 mcg PO DAILY #90 tab NS 07/16/20 rosuvastatin 5 mg tablet 5 mg PO DAILY tab 10/21/20 cholecalciferol (vitamin D3) 125 mcg (5,000 unit) capsule 125 mcg PO DAILY 10/30/20 clopidogrel 75 mg tablet 75 mg PO DAILY tab 10/30/20 tramadol 50 mg tablet 50 mg PO TID PRN 04/30/21 Januvia 100 mg PO DAILY 09/21/21 losartan 100 mg PO DAILY 09/23/21 amlodipine 10 mg PO QHS 30 Days #30 tab 09/29/21 hydralazine 25 mg PO TID #0 tab 09/29/21 Hospital Course Operations None Procedures None Summary of Care Provided Minutes Spent on Discharge: 30 Hospital Course: 81 year old female with below past medical history hospitalized for acute respiratory failure with hypoxia secondary to pneumonia, complicated by acute diastolic congestive heart failure, admitted to TCU with debility, here for rehabilitation, strengthening, prior to discharge home alone. Discharge home alone 09/30/2021, No needs. Physical Exam Const alert and oriented x3 General Appearance: cooperative HEENT normocephalic Eyes PERRL and EOMs intact bilaterally Neck supple, no JVD and no carotid bruits Resp normal respiratory effort, normal air movement and clear to auscultation bilaterally Cardio regular rate and regular rhythm GI normal to inspection, nondistended, normoactive bowel sounds, non-tender and non-distended Extremity normal capillary refill General Extremity: Negative for edema Skin no rashes or lesions noted General Skin Exam: no breakdown Psych affect normal Appearance: appropriate Weight / BMI Weight Weight: 50.576 kg Body Mass Index (BMI) 20.4 ABG / Lab / Microbiology Data Result Diagrams: 09/24/21 05:16 09/24/21 05:16 D/C Instructions Discharge Diet: No restrictions Discharge Activity: Return to Normal Activity, May Shower and Use Walker Weight Bearing Status: Weight bearing as tolerated Call your doctor if you observe: Fever of 101 or Higher, Inability to urinate, Inability to have a bowel movement, Shortness of breath, Dizziness, Fainting spells, Swelling in the ankles, Chest pain and Uncontrolled pain Additional Instructions: Discharge home alone 09/30/2021, No needs. Please Follow Up With: Aaron Wilkerson BLAST FURNACE SUPERVISOR, BLAST FURNACE SUPERVISOR-C When: As scheduled. Meaningful Use Info Meaningful Use Diagnoses (Choose all that apply): None applicable Discharge Plan Admission Admit Date/Time: 09/23/21 14:54 Primary Reason for Your Visit: Debility. Attending Provider: Sohail Grande Chi Primary Care Provider: Karla Bhagat Instructions Additional Instructions / Restrictions: Discharge home alone 09/30/2021, No needs. Discharge Orders/Prescriptions Prescriptions: New hydralazine 25 mg Tablet 25 mg PO TID Qty: 0 RF: 0 Continued levothyroxine [Synthroid] 88 mcg tablet 88 mcg PO DAILY Qty: 90 RF: 3 rosuvastatin 5 mg tablet 5 mg PO DAILY RF: 0 clopidogrel 75 mg tablet 75 mg PO DAILY RF: 0 cholecalciferol (vitamin D3) 125 mcg (5,000 unit) capsule 125 mcg PO DAILY RF: 0 tramadol 50 mg tablet 50 mg PO TID PRN (Reason: Pain) RF: 0 Januvia 100 mg tablet 100 mg PO DAILY RF: 0 losartan 100 mg tablet 100 mg PO DAILY RF: 0 amlodipine 10 mg tablet 10 mg PO QHS 30 Days Qty: 30 RF: 0 Discontinued hydralazine 25 mg tablet 50 mg PO TID RF: 0 albuterol sulfate 2.5 mg /3 mL (0.083 %) Solution For Nebulization 2.5 mg inhalation Q2H PRN PRN (Reason: Shortness of Breath/Wheezing) Qty: 0 RF: 0 furosemide 40 mg tablet 40 mg PO DAILY RF: 0 amoxicillin-pot clavulanate 875-125 mg tablet 875 mg PO BID RF: 0 Lantus Solostar U-100 Insulin 100 unit/mL (3 mL) insulin pen 8 units subcut QHS RF: 0 Referrals / Follow Up: Karla Bhagat MD [Primary Care Provider] - Within 1 Week Disposition Disposition (needs filled in before D/C Order can be placed): Home, Self Care
[2021-09-29 22:10] VITALS: BP 139/62; PULSE 61
[2021-09-29] MEDS: Nystatin Powder 15gm Bottle 1 APPLIC TOPICAL (22:10)
[2021-09-29] MEDS: amLODIPine 10 MG Tablet PO (22:13)
--- NOTE | 2021-09-30 06:22 | NURSING ---
Addendum entered by Allen Hernandez 09/30/21 06:47: Pt. requests PB and shaquille mccoy, provided per pt. request. Blood glucose level per continuous glucose monitoring device 141, no s/sx hypo/hyperglycemia observed or reported. Call light in reach. Original Note: BLADDER CHANGER reports Blood glucose per pt. continuous glucose monitoring device at 58 and pt. provided with juice and snack. Recheck blood glucose at this time per pt. continuous glucose monitoring device 121
[2021-09-30] MEDS: Atorvastatin Calcium 10 MG Tablet PO (06:29)
[2021-09-30] MEDS: Cholecalciferol (VIT D3) 25 MCG TABLET (1,000 UNITS) 125 MCG PO (06:29)
[2021-09-30] MEDS: Polyethylene Glycol 3350 17 GM PACKET PO (06:29)
[2021-09-30] MEDS: Clopidogrel Bisulfate 75 MG Tablet PO (06:29)
[2021-09-30 06:30] VITALS: BP 113/42; PULSE 50; RESP 14; O2SAT 96
[2021-09-30] MEDS: Senna/Docusate Sodium 1 Tablet 2 TABLET PO (06:30)
[2021-09-30] MEDS: Levothyroxine 88 MCG Tablet PO (06:31)
[2021-09-30] MEDS: traMADol 50 MG Tablet PO (06:37)
--- NOTE | 2021-09-30 06:44 | NURSING ---
Cozaar and apresoline not administered at this time due to BP 113/42 and pulse 50, Pt. states would like held until later this morning. No distress observed or reported. A&Ox3. Pleasant and talkative. Call light in reach.
[2021-09-30 09:00] VITALS: PULSE 62; RESP 18; O2SAT 99
[2021-09-30 09:05] VITALS: BP 143/63; PULSE 62
[2021-09-30] MEDS: hydrALAZINE 25 MG Tablet PO ×2 (09:05→15:59)
[2021-09-30] MEDS: Losartan Potassium 100 MG Tablet PO (09:06)
[2021-09-30 09:07] VITALS: BP 143/63; PULSE 62; O2SAT 99
[2021-09-30] MEDS: Glucerna Shake 120 ML LIQUID PO (11:16)
--- NOTE | 2021-09-30 11:39 | NURSING ---
PT TAKES OWN BLOOD SUGAR WITH FREE STYLE HOME METER. PT BLOOD SUGAR WAS 153 AT LUNCH.
[2021-09-30 15:56] VITALS: BP 169/81; PULSE 75; RESP 18; TEMP 36.9; O2SAT 96
[2021-09-30 15:59] VITALS: BP 169/81; PULSE 75
[2021-09-30] MEDS: LINAGLIPTIN 5 MG TABLET PO (16:01)
--- NOTE | 2021-10-03 13:44 | MDS.RN ---
Information for the mds was obtained from review of the clinical record, interview of resident, staff, and direct observation of resident's care.
== END 2021-09-30 04:10 | disposition home or self-care (01) | DRG 193 ==
PROVIDERS: Admitting Provider Family Medicine Geriatric Medicine; PCP Internal Medicine; Visit Provider Family Medicine Geriatric Medicine
DX: J18.9 Pneumonia, unspecified organism (principal); I50.31 Acute diastolic (congestive) heart failure; I11.0 Hypertensive heart disease with heart failure; E78.5 Hyperlipidemia, unspecified; E11.9 Type 2 diabetes mellitus without complications; E89.0 Postprocedural hypothyroidism; E55.9 Vitamin D deficiency, unspecified; I25.10 Atherosclerotic heart disease of native coronary artery without angina pectoris; Z79.02 Long term (current) use of antithrombotics/antiplatelets; Z79.01 Long term (current) use of anticoagulants; Z79.4 Long term (current) use of insulin; Z79.899 Other long term (current) drug therapy; Z87.891 Personal history of nicotine dependence
CPT/HCPCS: 36415; 80048; 85025; 87426; 97110; 97116; 97162; 97166; 97530; 97535; 97802

== ENCOUNTER 2021-12-01 15:27 | Outpatient (CLI) | payer MEDICARE, SELFPAY ==
--- NOTE | 2021-12-01 15:29 | RAD_ITS ---
STUDY: X-RAY - PELVIS AND RIGHT HIP REASON FOR EXAM: Female, 81 years old. PAIN TECHNIQUE: 3 views of the pelvis and hip. COMPARISON: 12/11/2019 FINDINGS: There is a non-specific bowel gas pattern. Normal visualized soft tissue structures. Normal bilateral iliac wings, sacroiliac joints and visualized sacrum. Normal bilateral superior and inferior pubic rami. Normal pubic symphysis. Normal bilateral ischial tuberosities. Normal visualized femoral head. Normal acetabulum. Normal hip joint. RAD/HIP, UNI W/ Pelvis 2-3 Views IMPRESSION: Normal x-ray examination of the pelvis and hip. Electronically Signed: Yahir Blankenship MD at 14:12 EST Tel , Service support ,
== END 2021-12-01 23:59 | disposition short-term general hospital (02) ==
LOC: MTRAD 15:28
PROVIDERS: PCP Internal Medicine; Referring Provider Internal Medicine; Visit Provider Internal Medicine
DX: M25.551 Pain in right hip (principal)
CPT/HCPCS: 73502

== ENCOUNTER 2021-12-24 10:30 | Outpatient (RCR) | payer MEDICARE, SELFPAY ==
--- NOTE | 2021-12-12 12:38 | HP.PTEVAL ---
Patient's Visit Information ELLEN ESTRADA is a 81 year old F referred to Physical Therapy by Dr. Karla Bhagat MD with a diagnosis of R hip pain. Date of Evaluation: 12/12/21 Physical Therapist: Kirt Arellano DPT, OCS, CSCS - Visit Plan Frequency: 2-3x /Week Duration: 4-6 Weeks Plan: 3x/week for 2-4 weeks for. 1. ROM and gentle NWB strength R hip. 2. STM To r piiformis and gluts and stretch same including ITB, leg pull R. 3. Progress function. 4. TENS with MH as needed. - Subjective R hip pain hurts all over since 11/23/21 for no reason but had been on feet alot that week. Has scoliosis and breathing problems from that. is in memory care and she lives in [facility] by herself. Had a number of falls prior to being so busy. Took it easy for a week. Went to see doctor who gave her some exercises that hurt including describing ROM supine. Did x ray which was clear of fracture. Hurts the most Rlateral hip and posterior to 8/10. Got steroid injection whcih did not help. Uses walking stick to get aaround and has for long time due to scoliosis. uses rollator walker at home due to hip pain. Is mostly I living alone without need for steps. Dresses I, makes meals but it is more difficult with this pain. Hobbies: reading and visit [employer]. Used to do water aerobics but not lately. - Pain R hip Pain Intensity (Out of 10): 8 Pain Intensity Range: 1, 9 - Objective R rib hump present and hunched over in posture forward adn L. Severe scoliosis present. R hip is tender laterally at GT and into posterior muscles attached and glut on R Max, not on L. Walks safe and mod I with cane stick in L UE hunched and slow but I, tired after 100 feet but able to continue. Trasnfers are I chair and bed. Balance is fair. LE AROM WFL and with pain only extending R hiup to neutral as in supine lie, PROM WFL except R hip extension to neutral due to pain and abduction to 15 but painful, rotations are patent and painfree, slight end range R IR. strength is 3/5 in R hip abd and ext, 3+ in all other LE muscle groups. reflexes 2/3 patella and achilles. sensation WNL to gross light touch in LE. -DELFINO, only slight positive FADDIR. LB AROM WFL for her deformities, not tender in soft tissue. - Balance/Special Test Scores Lower Extremity Functional Score: 9 - Goals Goal 1:: Patient feel ambulation back to baseline without increased R hip pain Goal Time Frame: 4-6 Weeks Goal 2:: Lie comfortably without symptoms. Goal Time Frame: 4-6 Weeks Goal 3:: I ex to manage hip pain. Goal Time Frame: 4-6 Weeks Goal 4:: Activities back to baseline. Goal Time Frame: 4-6 Weeks Goal 5:: LEFS score 29 to show improved mobility. Goal Time Frame: 2-4 Weeks - Rehabilitation Potential Physical Therapy Diagnosis: R hip pain likely soft tissue limiting mobility. Rehabilitation Potential: Fair - Anticipated Interventions Patient/Client Instruction: Educate patient on: Condition, Plan of Care For the Purpose of:: To decrease pain, To improve muscle performance and motor function, To improve ability of physical actions for home/community/work/leisure Therapeutic Exercise to Include: Strength training, Flexibilty training, Gait and locomotor training, Passive ROM, Active ROM For the Purpose of:: To decrease pain, To increase ROM, To improve muscle performance and motor function, To increase tolerance to activity/condition/position Manual Therapy Techniques to Include: Mobilization, Soft tissue mobilization For the Purpose of:: To decrease pain, To improve muscle performance and motor function, To improve gait and locomotor functions TENS: Yes Thermo therapy (hot pack): Yes For the Purpose of:: To decrease pain Thank you for the opportunity to evaluate your patient. For Medicare and Medicare HMO plans, please review the plan of care and approve it. It will need to be FAXED BACK to us at [phone] for Medicare purposes. For Medicare only, by signing this I certify the plan of care. Please let me know if there are questions or concerns regarding this plan of care. Physician Signature: Date:
--- NOTE | 2021-12-24 11:04 | HP.PTCOM ---
PT Communication Note 12/24/[address] Karla Bhagat MD , I appreciate the referral of héctor to [facility] for physical therapy. We have treated her for 3 visits of manaul therapy on the back and hip, massage and modalities to help with her pain. Thus far, she has had no lasting improvement in her pain level or function. She is in a high amount of pain each day. Since she follows up with you tomorrow, I felt it prudent to let you know that she is in a lot of pain and not improving. I understand that she may require a certain amount of therapy to move on with the next step of her treatment. That being said, she is not responding as we would hope in therapy and would benefit from her next step(MRI?) prudently if able. I will be happy to keep seeing her in an attempt to help her pain until which time she is improved or can take the next appropriate step in her care. I have offered pool therapy if other therapies become intolerable. Please do not hesitate to contact me if there are questions regarding her care. Thank you. Sincerely, Kirt Arellano, ALINT, OCS, CSCS Contact Information
--- NOTE | 2022-02-13 10:29 | HP.PT.NRP ---
ELLEN ESTRADA was seen in my office for initial evaluation on 12/12/21. The following Plan of Care was established for this patient: Initial Frequency: 2-3x /Week Initial Duration: 4-6 Weeks Patient/Client Instruction: Educate patient on: Condition, Plan of Care For the Purpose of:: To decrease pain, To improve muscle performance and motor function, To improve ability of physical actions for home/community/work/leisure Therapeutic Exercise to Include: Strength training, Flexibilty training, Gait and locomotor training, Passive ROM, Active ROM For the Purpose of:: To decrease pain, To increase ROM, To improve muscle performance and motor function, To increase tolerance to activity/condition/position Manual Therapy Techniques to Include: Mobilization, Soft tissue mobilization For the Purpose of:: To decrease pain, To improve muscle performance and motor function, To improve gait and locomotor functions TENS: Yes Thermo therapy (hot pack): Yes For the Purpose of:: To decrease pain This patient was last seen in our office 12/24/21. Pertinent comments regarding their Physical therapy will appear below: Pt seen 3 visits of POC and was not improving, asked her to schedule with doctor due to her pain level. She did not attend any visits after that. I will discontinue as it has been over 6 weeks. At this point I will be discontinuing this patient from physical therapy. I would be happy to see this patient again in the future if found appropriate by the physician. Thank you! Kirt Arellano, DPT, OCS, CSCS Balance/Gait/Functional tests - Balance/Special Test Scores Lower Extremity Functional Score: 9
== END 2021-12-24 19:00 | disposition home or self-care (01) ==
LOC: PT 10:30
PROVIDERS: PCP Internal Medicine; Referring Provider Internal Medicine; Visit Provider Internal Medicine
DX: M25.551 Pain in right hip (principal)
CPT/HCPCS: 97140; 97161

== ENCOUNTER 2022-01-21 10:11 | Outpatient (CLI) | payer MEDICARE, SELFPAY ==
--- NOTE | 2022-01-21 10:18 | MRI_ITS ---
STUDY: MR Spine Lumbar W/O Contrast 01/21/2022 3:31 PM REASON FOR EXAM: Female, 81 years old. Back pain LUMBAR RADICULOPATHY, pain into R leg, severe scoliosis TECHNIQUE: MR Spine Lumbar W/O Contrast Standardized fat and water weighted pulse sequences were obtained. COMPARISON: 12.03.16 FINDINGS: T12-L1: Normal endplates. Normal disc height, hydration and morphology. Normal bilateral facet joints. Normal central canal and bilateral lateral recesses. Normal bilateral intervertebral neural foramina. Normal lumbar lordosis. There is a dextroscoliosis of the lumbar spine. Normal conus medullaris that terminates at the L1. L1-2: Normal endplates. Normal disc height and morphology. Normal central canal and intervertebral neuroforamina. L2-3: Loss of intervertebral disc height. There is endplate spondylosis of the vertebral body. Normal central canal and intervertebral neuroforamina. There is bilateral facet arthropathy. Posterior disc bulge osteophyte complex. L3-4: Loss of intervertebral disc height. There is endplate spondylosis of the vertebral body. Normal central canal and intervertebral neuroforamina. There is bilateral facet arthropathy. Posterior disc bulge osteophyte complex. L4-5: Loss of intervertebral disc height. There is endplate spondylosis of the vertebral body. Normal central canal and intervertebral neuroforamina. There is bilateral facet arthropathy. 5.8 mm grade 1 anterolisthesis of L4 on L5. L5-S1: Loss of intervertebral disc height. There is endplate spondylosis of the vertebral body. There is bilateral facet arthropathy. Normal central canal and intervertebral neuroforamina. Small central disc herniation Normal visualized sacral ala. Normal visualized paraspinous soft tissue structures. MRI/Spine Lumbar (Routine) IMPRESSION: Multilevel degenerative changes, as described above. There is a dextroscoliosis of the lumbar spine. L5-S1: Small central disc herniation L4-5: 5.8 mm grade 1 anterolisthesis of L4 on L5. L2-3: Posterior disc bulge osteophyte complex. L3-4: Posterior disc bulge osteophyte complex. Electronically Signed: Ronald Paige MD at 15:36 EST ,
== END 2022-01-21 23:59 | disposition home or self-care (01) ==
PROVIDERS: PCP Internal Medicine; Referring Provider Internal Medicine; Visit Provider Internal Medicine
DX: M54.16 Radiculopathy, lumbar region (principal)
CPT/HCPCS: 72148

== ENCOUNTER 2022-03-08 13:58 | Observation (INO) | payer MEDICARE, SELFPAY ==
[2022-03-08 13:59] VITALS: BP 131/56; PULSE 77; RESP 15; TEMP 36.7; O2SAT 98; BMI 18.3
--- NOTE | 2022-03-08 14:17 | RAD_ITS ---
STUDY: X-RAY - RIGHT KNEE REASON FOR EXAM: Female, 81 years old. pain TECHNIQUE: 4 view(s) of the knee. COMPARISON: None. FINDINGS: There is demineralization of the visualized distal femur. There is demineralization of the tibia and fibula. Normal proximal tibiofibular articulation. There is severe degenerative arthrosis of the medial femorotibial compartment with severe joint space narrowing. There is moderate degenerative arthrosis of the lateral femorotibial compartment with moderate joint space narrowing. There is moderate degenerative arthrosis of the patellofemoral articulation. The soft tissue structures are unremarkable. RAD/Knee 4 or More Views IMPRESSION: Tricompartmental osteoarthrosis as above. Electronically Signed: Steven Figueroa DO at 15:50 EDT ,
--- NOTE | 2022-03-08 14:18 | EDS_ITS ---
HPI History of Present Illness Chief Complaint: Lower Extremity Injury Detail of Chief Complaint: Back and hip and right knee pain Informant: patient Narrative Narrative: Patient presents to the emergency department with complaint of pain in her back and right hip and right knee that started around of 2020. Patient denies any injury. She does have history of scoliosis. Patient had an MRI of her lumbar spine in December that showed some degenerative changes but really nothing surgical with some mild disc protrusions. Patient also had x- rays of her right hip and pelvis that were unremarkable in January. Patient was given [place] for pain but continues to have severe pain in [place] is not helping at all. Patient will be scheduled to see pain management for injections. She tells me her primary care physician try to order an MRI of her hip but it was denied by her insurance company. Patient states that over the last 6 weeks she is had to start using a walker because of the amount of pain she is having. She denies any change in bowel or bladder function. She denies weakness in extremities but does complain of pain. [facility] Medical History Bilateral carotid bruits Carotid artery stenosis Carotid stenosis, bilateral Chronic constipation Depression Diabetes mellitus Diabetes mellitus, type II Dizziness Essential hypertension Hyperlipidemia Hypothyroidism Transaminitis Valvular heart disease Home Medications Synthroid 88 mcg tablet 88 mcg PO DAILY #90 tab NS 07/16/20 [Rx Last Taken Unknown] rosuvastatin 5 mg tablet 5 mg PO DAILY tab 10/21/20 [History Last Taken Unknown] cholecalciferol (vitamin D3) 125 mcg (5,000 unit) capsule 125 mcg PO DAILY 10/30/20 [History Last Taken Unknown] clopidogrel 75 mg tablet 75 mg PO DAILY tab 10/30/20 [History Last Taken Unknown] Januvia 100 mg PO DAILY 09/21/21 [History Last Taken Unknown] losartan 100 mg PO DAILY 09/23/21 [History Last Taken Unknown] hydralazine 50 mg tablet 50 mg PO TID tab 11/04/21 [History Last Taken Unknown] amlodipine 10 mg tablet 10 mg PO QHS 30 Days #30 tab 02/09/22 [Rx Last Taken Unknown] Allergy/AdvReac Type Severity Reaction Status Date / Time metformin Allergy Severe Rash Verified 03/08/22 13:59 neomycin [Neomycin] Allergy Severe Unknown Verified 03/08/22 13:59 Tetracyclines Allergy Severe Anaphylaxis Verified 03/08/22 13:59 Sulfa (Sulfonamide Allergy Unknown Verified 03/08/22 13:59 Antibiotics) Family History Mother Thyroid disorder Father Alzheimer disease Surgical History History of foot surgery History of left heart catheterization (12/28/14) History of thyroidectomy History of tonsillectomy and adenoidectomy Social History household members: none Smoking Status: Former smoker how long ago did patient quit smokin years ago alcohol intake: current alcohol intake frequency: a few times a month Alcohol type: wine substance use type: does not use caffeine: Yes Type: coffee Number of servings: 2 ROS ROS ED Constitutional Constitutional ED: Reports systems reviewed and no addt'l complaints, except as documented; Denies body ache(s), change in weight or chills Eyes Eyes: Denies acute decrease in peripheral vision, change in vision, double vision or loss of vision ENT ENT ED: Reports none; Denies ear pain, lip swelling, loss taste/smell, neck pain, otalgia or sore throat Cardiovascular Cardiovascular: Reports none; Denies abdominal pain, chest pain with activity, leg edema, lightheadedness, palpitations, rapid heart rate or syncope Respiratory/Chest Respiratory/Chest: Reports none; Denies change in mental status, dry cough, dyspnea, hemoptysis, shortness of breath at rest or shortness of breath with exertion Gastrointestinal Gastrointestinal: Reports none; Denies abdominal pain, change in stool character, diarrhea, hematemesis, hematochezia, melena, rectal bleeding or v omiting Genitourinary Genitourinary ED: Reports none; Denies abdominal discomfort, anuria, dysuria, genital pain or polyuria Musculoskeletal Musculoskeletal: Reports none, back pain and other Details: Right knee and right hip pain ; Denies arthralgias, difficulty walking, extremity pain, muscle weakness or myalgias Integumentary Reports none; Denies abscess or rash Neurologic Neurologic: Reports none; Denies abnormal gait, confusion, focal weakness, frequent falls, headache(s), loss of vision, numbness, paresthesias, radicular pain, vertigo or weakness Psychiatric Psychiatric: Reports systems reviewed and no addt'l complaints, except as documented and none; Denies behavioral changes, confusion, difficulty concentrating, hallucinations, suicidal ideation, tactile hallucinations or visual hallucinations Endocrine Endocrinology: Denies none, cold intolerance, excessive sweating, fatigue or heat intolerance Hematologic/Lymphatic Hematologic/Lymphatic: Reports none; Denies anemia, easy bleeding or easy bruising Allergic/Immunologic Allergic/Immunologic ED: Denies as per HPI, none, lip swelling, mouth swelling, throat swelling, tongue swelling or hives EXAM Physical Exam Const Vital Signs: 03/08/22 13:59 Temperature 98.1 F Temperature Source Temporal Pulse Rate 77 Respiratory Rate 15 Blood Pressure 131/56 H Blood Pressure Mean 81 Pulse Ox 98 Oxygen Delivery Method Room Air Positive well nourished and well developed General Appearance ED: well developed and NAD HEENT Reports TM's clear and moist mucous membranes normocephalic and atraumatic; Negative for trauma or tenderness Tympanic Membrane ED: Yes TM's clear Eyes PERRL and EOMs intact bilaterally General Eye ED: Negative for pale conjunctiva or scleral icterus Neck no lymphadenopathy, supple and no JVD General: Negative for tenderness Chest Wall inspection of chest normal and palpation of chest normal Chest: Negative for tenderness Resp normal respiratory effort and clear to auscultation bilaterally Effort and Inspection: Negative for respiratory distress or pain with movement Auscultation: Negative for rhonchi, wheezes or diminished lung sounds Cardio regular rate, regular rhythm, S1 normal heart sound, S2 normal heart sound and no murmurs Peripheral Pulses: pulses 2+ throughout GI normal to inspection, nondistended, normoactive bowel sounds, soft to palpation, non-tender, non-distended and no masses Back/Spine no CVA tenderness and no thoracic nor lumbar tenderness Back/Spine Narrative: Patient with tenderness palpation over the right lumbar paraspinal musculature that seems to reproduce her pain. Patient does have a severe scoliosis. Patient has positive straight leg raise while seated at approximately 30 degrees. He has tenderness palpation over the right performance muscle as well as the right hip and right knee diffusely. Neurovascularly intact distally. Deep tendon reflexes are plus 1 out of 4 bilaterally at the patella and Achilles. Patient has normal L5 extension bilaterally. Patient has normal sensation to light touch bilaterally. Extremity normal to inspection General Extremety ED: Negative for edema General Extremity: Negative for edema Neuro oriented x3, CN's II-XII intact bilaterally, no sensory deficits noted and gait normal Sensorium / Orientation: awake, alert, oriented to person, oriented to place and oriented to time Motor Exam: strength 5/5 throughout and strength abnormal Psych mental status grossly normal Skin no rashes or lesions noted and no wounds MDM MDM MDM Narrative Medical decision making narrative: IV line established. Patient was medicated with morphine and Zofran initially and she did not have much pain relief with that. She was then given a milligram of Dilaudid IV. And she started to feel some relief. Patient continues to experience pain and requiring assistance with standing and walking. Case will be discussed with hospitalist evaluate patient for admission for intractable back and right hip and right knee pain. Patient did have x-rays here of the right knee that showed a lot of degenerative changes otherwise nothing acute. I also did order some basic labs. Radiography Diagnostic Testing: Clinical Impression(s) from Imaging Studies Knee X-Ray 03/08/22 14:17 IMPRESSION: Tricompartmental osteoarthrosis as above. Electronically Signed: Steven Figueroa DO at 15:50 EDT Reading Location ID and State: [facility] / [place] , Service support , Three-view x-rays of the right knee obtained showed degenerative changes on my inspection without evidence of fracture or dislocation. Radiology in agreement. Discharge Plan Dx/Rx/DC Orders Clinical Impression: Intractable back pain, Acute pain of right hip, Acute pain of right knee Disposition Disposition: Acute Care Hospital [facility]
[2022-03-08] MEDS: Morphine 4 MG/ML Syringe IV (14:40)
[2022-03-08] MEDS: Ondansetron 4 MG/2 ML Vial IV ×3 (14:41→23:44)
[2022-03-08] MEDS: HYDROmorphone 1 MG/ML Syringe IV (15:55)
[2022-03-08 16:16] LABS: Absolute Lymphocyte Count 0.55 X10^3/uL (0.83-4.51); Absolute Neutrophil Count 3.3 X10^3/uL (2.0-7.7); Basophil# 0.07 X10^3/uL; Basophil% 1.6 % (0-1); Eosinophil# 0.04 X10^3/uL; Eosinophils% 0.9 % (0-5); Hematocrit 36.4 % (37-47); Hemoglobin 12.5 g/dL (12.0-15.0); Lymphocyte # 0.55 X10^3/ul (0.83-4.51); Lymphocyte % 12.2 % (19-41); Mean Corp Hgb Conc 34.3 g/dL (32-36); Mean Corpuscular Hgb 28.8 pg (27.0-32.0); Mean Corpuscular Volume 83.9 fL (81-99); Mean Platelet Vol. 10.2 fl (6.2-12.0); Monocyte# 0.52 X10^3/uL; Monocyte% 11.6 % (0-10); NRBC Flagged by Analyzer 0 % (0-5); Neutrophil % 73.3 % (47-70); POSITIVE DIFFERENTIAL YES; Platelet Count 235 K/mm3 (150-450); RBC Distribution Width CV 13.5 % (11.6-14.6); Red Blood Count 4.34 M/mm3 (4.2-5.4); White Blood Count 4.5 K/mm3 (4.4-11.0)
[2022-03-08 16:18] VITALS: BP 156/54; PULSE 66; RESP 12; TEMP 36.6; O2SAT 97
[2022-03-08 16:22] LABS: Differential Indicated SCAN CRITERIA MET
[2022-03-08 16:24] LABS: Anion Gap 5 (5-15); BUN 25 mg/dL (7-18); BUN/Creat Ratio 39.6 RATIO (10-20); Calcium,Total 9.2 mg/dL (8.5-10.1); Chloride 102 mmol/L (98-107); Creatinine, Serum 0.63 mg/dL (0.55-1.02); EST Glomerular Filtration Rate 95 mL/min (>60); Est Glom Filt Rate - Afr Amer 116 mL/min (>60); Estimated Creatinine Clearance 30.52 ml/min; Glucose 261 mg/dL (74-106); Potassium 3.8 mmol/L (3.5-5.1); Sodium Level 134 mmol/L (136-145)
--- NOTE | 2022-03-08 16:42 | PCM.HP.STD ---
Documented by User: Pat Santiago NP, HEALTH INSURANCE ASSESSOR-C 03/08/22 17:35 HPI - General HPI Narrative ELLEN ESTRADA, is a 81 F who presents to the Emergency Department due to intractable pain and debility. Patient has a history of severe scoliosis with chronic back pain. Patient states she has had back and joint pain for many years however up until this past Nafisa, had been doing fairly well. She states since Nafisa she has had increased back pain and right hip pain which goes down to right knee. She lives alone as she states she recently had to put her in a memory care unit. She reports two falls within the past month at home. She states over the past week her pain has been unbearable and she is unable to care for herself at home. Patient states her PCP placed her on Humphrey last week which has not helped with her pain. She states in the past she has used tramadol however it is no longer effective. She has an appointment with Dr. Abarca, pain management in 1 week for back injection. She denies numbness of her legs or loss of bowel/bladder function. She has a past medical history of chronic pain with severe scoliosis, type 2 diabetes mellitus, carotid artery disease, hypertension, hyperlipidemia, hypothyroidism, depression. [facility] Medical History Bilateral carotid bruits Carotid artery stenosis Carotid stenosis, bilateral Chronic constipation Depression Diabetes mellitus Diabetes mellitus, type II Dizziness Essential hypertension Hyperlipidemia Hypothyroidism Transaminitis Valvular heart disease Home Medications Synthroid 88 mcg tablet 88 mcg PO DAILY #90 tab NS 07/16/20 [Rx Last Taken Unknown] rosuvastatin 5 mg tablet 5 mg PO DAILY tab 10/21/20 [History Last Taken Unknown] cholecalciferol (vitamin D3) 125 mcg (5,000 unit) capsule 125 mcg PO DAILY 10/30/20 [History Last Taken Unknown] clopidogrel 75 mg tablet 75 mg PO DAILY tab 10/30/20 [History Last Taken Unknown] Januvia 100 mg PO DAILY 09/21/21 [History Last Taken Unknown] losartan 100 mg PO DAILY 09/23/21 [History Last Taken Unknown] hydralazine 50 mg tablet 50 mg PO TID tab 11/04/21 [History Last Taken Unknown] amlodipine 10 mg tablet 10 mg PO QHS 30 Days #30 tab 02/09/22 [Rx Last Taken Unknown] Allergy/AdvReac Type Severity Reaction Status Date / Time metformin Allergy Severe Rash Verified 03/08/22 13:59 neomycin [Neomycin] Allergy Severe Unknown Verified 03/08/22 13:59 Tetracyclines Allergy Severe Anaphylaxis Verified 03/08/22 13:59 Sulfa (Sulfonamide Allergy Constipatio Verified 03/08/22 17:29 Antibiotics) n Family History Mother Thyroid disorder Father Alzheimer disease Surgical History History of foot surgery History of left heart catheterization (12/28/14) History of thyroidectomy History of tonsillectomy and adenoidectomy Social History household members: none Smoking Status: Former smoker how long ago did patient quit smokin years ago alcohol intake: current alcohol intake frequency: a few times a month Alcohol type: wine substance use type: does not use caffeine: Yes Type: coffee Number of servings: 2 ROS Constitutional Constitutional: Reports weakness; Denies change in weight, chills, fatigue or fever(s) Cardiovascular Cardiovascular: Denies chest pain, edema, lightheadedness, palpitations or syncope Respiratory/Chest Respiratory/Chest: Denies cough, dyspnea, productive cough, shortness of breath at rest, shortness of breath with exertion or wheezing Gastrointestinal Gastrointestinal: Denies abdominal pain, constipation, diarrhea, nausea or vomiting Genitourinary Genitourinary: Denies burning urination, difficulty urinating, dysuria, hematuria, urinary frequency, urinary incontinence or urinary urgency Musculoskeletal Musculoskeletal: Reports back pain, joint pain and other Details: Right hip pain which radiates down to right knee ; Denies muscle weakness Integumentary Integumentary: Denies erythema, lesions, rash or wounds Neurologic Neurologic: Denies abnormal speech, confusion, dizziness, focal weakness, numbness, paresthesias, seizure-like activity or syncope Psychiatric Psychiatric: Denies anxiety or depression Hematologic/Lymphatic Hematologic/Lymphatic: Denies anemia, easy bleeding or easy bruising Allergic/Immunologic Allergic/Immunologic: Denies hives or asthma Vital Signs Vital Signs Vital Signs: 03/08/22 13:59 03/08/22 16:18 Temperature 98.1 F 97.8 F Temperature Source Temporal Oral Pulse Rate 77 66 Respiratory Rate 15 12 Blood Pressure 131/56 H 156/54 H Blood Pressure Mean 81 88 Pulse Ox 98 97 Oxygen Delivery Method Room Air Room Air Weight Weight: 100 lb Body Mass Index (BMI) 18.3 Physical Exam Const alert, oriented x3 and no apparent distress Orientation / Consciousness: awake, oriented to person, oriented to place and oriented to time Nutritional Appearance: cachectic HEENT normocephalic and moist oral mucous membranes Eyes PERRL, EOMs intact bilaterally and conjunctivae normal Neck no lymphadenopathy Resp normal respiratory effort and clear to auscultation bilaterally Cardio regular rate, regular rhythm and no murmurs Peripheral Pulses: pulses 2+ throughout GI normal to inspection, nondistended, normoactive bowel sounds, non-tender and non-distended Extremity normal to inspection Skin no rashes or lesions noted Lesions: no lesions Rashes: no rashes Trauma: no lacerations or abrasions Neuro CN's II-XII intact bilaterally, no focal motor deficits, no sensory deficits noted and deep tendon reflexes 2+ bilaterally Psych mental status grossly normal Mood & Affect: tearful Results Lab / Micro Data Result Diagrams: 03/08/22 16:00 03/08/22 16:00 Labs: Laboratory Results - last 24 hr 03/08/22 16:00: WBC 4.5, RBC 4.34, Hgb 12.5, Hct 36.4 L, MCV 83.9, MCH 28.8, MCHC 34.3, RDW Std Deviation 42.0, RDW Coeff of Obed 13.5, Plt Count 235, MPV 10.2, Immature Gran % (Auto) 0.400, Neut % (Auto) 73.3 H, Lymph % (Auto) 12.2 L, [place] % (Auto) 11.6 H, Eos % (Auto) 0.9, Baso % (Auto) 1.6 H, Absolute Neuts (auto) 3.3, Absolute Lymphs (auto) 0.55 L, Nucleated RBC % 0 03/08/22 16:00: Sodium 134 L, Potassium 3.8, Chloride 102, Carbon Dioxide 27.0, Anion Gap 5, BUN 25 H, Creatinine 0.63, Estim Creat Clear Calc 30.52, Est GFR (MDRD) Af Amer 116, Est GFR (MDRD) Non-Af 95, BUN/Creatinine Ratio 39.6 H, Glucose 261 H, Calcium 9.2 Radiology Impression Knee X-Ray 03/08/22 14:17 IMPRESSION: Tricompartmental osteoarthrosis as above. Electronically Signed: Steven FigueroaDO at 15:50 EDT , Assessment & Plan Assessment/Plan (1) Intractable back pain: PLAN: 1. Intractable back pain with debility, chronic severe scoliosis-upcoming appointment with Dr. Abarca, pain management. IV Decadron. As needed pain regimen. PT/OT. Patient requesting TCU. MRI of lumbar spine shows multilevel generative changes, dextroscoliosis of the lumbar spine, L5-S1 small central disc herniation, L2-L3 posterior disc bulge osteophyte complex as well as L3-L4 posterior disc bulge osteophyte complex. Patient reports severe right hip pain which radiates to her right knee. Prior hip x-ray normal. Obtain CT of right hip. 2. Severe protein calorie malnutrition-as evidenced by cachectic appearance, reduced BMI, muscle and fat loss. From last admission, patient has lost 10 pounds. Dietitian consult. 3. Type 2 diabetes mellitus- on Januvia. Accu-Cheks with sliding scale insulin. 4. Right carotid artery disease-following with vascular surgery. Continue Plavix, statin. 5. Hypertension-stable, continue amlodipine, hydralazine, losartan. 6. Hyperlipidemia-continue statin. 7. Hypothyroidism-continue Synthroid regimen. 8. Depression-on citalopram. DVT prophylaxis- Lovenox sc CODE STATUS: Discussed with patient, elects to remain full code. This patient was seen by RADHA Montano under the supervision of Dr. Coburn. Documented by User: Dr. Mustapha Coburn DO 03/08/22 17:35 HPI - General General Date of Admission: 03/08/22 [facility] Medical History Bilateral carotid bruits Carotid artery stenosis Carotid stenosis, bilateral Chronic constipation Depression Diabetes mellitus Diabetes mellitus, type II Dizziness Essential hypertension Hyperlipidemia Hypothyroidism Transaminitis Valvular heart disease Home Medications Synthroid 88 mcg tablet 88 mcg PO DAILY #90 tab NS 07/16/20 [Rx Last Taken Unknown] rosuvastatin 5 mg tablet 5 mg PO DAILY tab 10/21/20 [History Last Taken Unknown] cholecalciferol (vitamin D3) 125 mcg (5,000 unit) capsule 125 mcg PO DAILY 10/30/20 [History Last Taken Unknown] clopidogrel 75 mg tablet 75 mg PO DAILY tab 10/30/20 [History Last Taken Unknown] Januvia 100 mg PO DAILY 09/21/21 [History Last Taken Unknown] losartan 100 mg PO DAILY 09/23/21 [History Last Taken Unknown] hydralazine 50 mg tablet 50 mg PO TID tab 11/04/21 [History Last Taken Unknown] amlodipine 10 mg tablet 10 mg PO QHS 30 Days #30 tab 02/09/22 [Rx Last Taken Unknown] Allergy/AdvReac Type Severity Reaction Status Date / Time metformin Allergy Severe Rash Verified 03/08/22 13:59 neomycin [Neomycin] Allergy Severe Unknown Verified 03/08/22 13:59 Tetracyclines Allergy Severe Anaphylaxis Verified 03/08/22 13:59 Sulfa (Sulfonamide Allergy Constipatio Verified 03/08/22 17:29 Antibiotics) n Family History Mother Thyroid disorder Father Alzheimer disease Surgical History History of foot surgery History of left heart catheterization (12/28/14) History of thyroidectomy History of tonsillectomy and adenoidectomy Social History household members: none Smoking Status: Former smoker how long ago did patient quit smokin years ago alcohol intake: current alcohol intake frequency: a few times a month Alcohol type: wine substance use type: does not use caffeine: Yes Type: coffee Number of servings: 2 Results Lab / Micro Data Result Diagrams: 03/08/22 16:00 03/08/22 16:00 Charges/Coding Addendum Addendum: Patient was seen and examined dependently of Pat Santiago, she came to the ER today with complaints of right knee pain, right hip pain, and generalized right lower back pain. Patient has had pain in these areas for quite some time, she lives by herself, her is in assisted living at this time due to memory issues. She talked to her PCP today and was told to go to the ER for pain relief and possibly to get her placed into a snf facility for short-term rehab services. On examination she appeared frail and older than her stated age, she does not appear to be in any distress. Vital signs as documented. Skin warm and dry and without overt rashes. Neck without JVD, thyroid appears normal, trachea is midline, neck is supple. Lungs clear, normal air movement was noted. Heart exam notable for regular rhythm, normal sounds and absence of murmurs, rubs or gallops. Abdomen unremarkable and without evidence of organomegaly, masses, or abdominal aortic enlargement, bowel sounds are present in all 4 quadrants, no abdominal tenderness was noted. Extremities nonedematous, no cyanosis was noted, no clubbing was noted. Neuro: Cranial nerves II through XII are grossly intact, no focal motor deficits were noted, sensation to light touch and pinprick is intact, motor exam 5/5 throughout. Psych: Patient is alert and oriented x3, she does not appear anxious or depressed, she does not appear agitated. Patient had right knee x-rays performed in the emergency room, it showed severe osteoarthritic changes, she was given IV morphine and IV Dilaudid with minimal pain relief. I talked at length with the patient and told her that if she was to be placed into the hospital she would have to agree to short-term placement in a snf facility, she states she would like to go to TCU if possible but would entertain other snf home placement. 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 Patient will be seen by PT and OT, social services director will see the patient for short-term [facility] placement. #2 degenerative disc disease of the lumbar spine-treatment as above #3 complaints of right hip pain-etiology unclear, patient has had recent x-rays done of her right hip which shows no abnormality, I have decided to order a CT of her hip to better delineate the joint, according to her PCP, patient's insurance would not pay for the patient to undergo an MRI as an outpatient. #4 essential hypertension-patient will remain on her present medications #5 hyperlipidemia-patient is on a statin #6 generalized debility-again patient will be seen by PT and OT, she will need short-term placement in a snf facility #7 hypothyroidism-patient is on Synthroid #8 type 2 diabetes-patient will be placed on sliding scale insulin, she will be monitored with fingerstick blood sugars. I have reviewed Pat Santiago's history and physical including her medical assessment and plan of care with the above additions endorse it. Total clinical time spent by myself addressing the patient's medical issues, reviewing the patient's data, and communicating with the patient's care team: 50 minutes Visit Charges OBSV E&M: [id number] Initial observation care L3
[2022-03-08 16:48] LABS: Differential Comment SCANNED; Platelet Estimate ADEQUATE (ADEQ)
[2022-03-08 16:49] LABS: Red Cell Morphology NORM C+C NORMAL (NORM C&C)
--- NOTE | 2022-03-08 17:16 | CT_ITS ---
EXAM: CT Hip W/O Contrast Injection HISTORY: right hip pain TECHNIQUE: Axial images obtained with sagittal and coronal reformats. Without IV contrast. RADIATION DOSAGE (If Supplied By Facility): CTDIvol = ( 12.25 ) mGy, DLP = ( 324.25 ) mGycm Individualized dose optimization techniques were used for this CT. COMPARISON: X-rays right hip 12/01/2021. CT abdomen pelvis 11/07/2020. LIMITATIONS: None. FINDINGS: There is marked joint space narrowing of the hip with subchondral sclerosis and subchondral cystic changes with osteophytes at the acetabular and femoral head component. Irregularity of the femoral head with slight flattening of the superior component and subchondral lucency may suggest avascular necrosis. These changes appear increased compared to the recent hip x-ray on the previous CT abdomen and pelvis. No acute fracture demonstrated. No dislocation at the hip. Small joint effusion at the hip. Bones appear mildly osteopenic. CT/Extremity Lower without Contra IMPRESSION: Flattening of the right femoral head may be consistent with avascular necrosis or related to degenerative changes. Marked joint space narrowing progressed compared to prior imaging studies. Joint effusion. Cannot exclude septic joint in the proper clinical setting. MRI may be helpful for further evaluation. Electronically Signed: Karlene Hawkins MD at 4:24 EDT ,
[2022-03-08 17:17] VITALS: BP 156/54; PULSE 66; RESP 12; TEMP 36.6; O2SAT 97
[2022-03-08 17:27] VITALS: BMI 17.6
[2022-03-08 17:36] VITALS: BP 166/69; PULSE 77; RESP 16; TEMP 36.6; O2SAT 96
[2022-03-08] MEDS: dexAMETHasone 4 MG/ML Vial IV (18:49)
[2022-03-08] MEDS: 0.9% Saline Lock 10 ML Syringe IV ×2 (18:55→23:44)
[2022-03-08] MEDS: Heparin Injection (Vial) 5,000 UNIT/ML VIAL 5000 UNIT SC (21:09)
[2022-03-08 21:10] VITALS: PULSE 65
[2022-03-08] MEDS: morphine SR 15 MG Tablet 30 MG PO (21:10)
[2022-03-08] MEDS: hydrALAZINE 50 MG Tablet PO (21:10)
[2022-03-08] MEDS: amLODIPine 10 MG Tablet PO (21:10)
[2022-03-08] MEDS: Atorvastatin Calcium 10 MG Tablet PO (21:10)
[2022-03-08] MEDS: LINAGLIPTIN 5 MG TABLET PO (21:11)
[2022-03-08] MEDS: Insulin Lispro 100 UNIT/ML INSULN.PEN SC (21:23)
[2022-03-08 21:25] LABS: Bedside Glucose 345 mg/dL (74-106)
[2022-03-08 21:38] VITALS: BP 134/60; PULSE 65; RESP 16; TEMP 37; O2SAT 99
[2022-03-09] VITALS (7 sets, daily range): BP systolic 120–163; BP diastolic 49–67; PULSE 64–81; RESP 16–18; TEMP 36.9–37.3; O2SAT 95–98
[2022-03-09] MEDS: Morphine 2 MG/ML Syringe 4 MG IV (00:58)
[2022-03-09] MEDS: 0.9% Saline Lock 10 ML Syringe IV ×4 (00:58→20:54)
[2022-03-09] MEDS: hydrALAZINE 50 MG Tablet PO ×3 (06:15→20:48)
[2022-03-09] MEDS: dexAMETHasone 4 MG/ML Vial IV ×3 (06:15→20:54)
[2022-03-09] MEDS: Levothyroxine 88 MCG Tablet PO (06:16)
[2022-03-09] MEDS: Ondansetron 4 MG/2 ML Vial IV (06:16)
[2022-03-09] MEDS: Insulin Lispro 100 UNIT/ML INSULN.PEN SC ×6 (06:26→20:57)
[2022-03-09 06:41] LABS: Bedside Glucose 171 mg/dL (74-106)
--- NOTE | 2022-03-09 10:50 | CASEMGMT ---
Social Work Note SW reviewed chart. Pt is requesting TCU. SW placed a call to TCU and provided referral to [facility]. TCU to review referral. Plan: TCU pending acceptance and pre-cert Jess Hopkins MSW, MEAT DRESSER
--- NOTE | 2022-03-09 10:54 | PCM.PN.HOSP ---
Documented by User: Pat Santiago NP, PROFESSOR OF LITERATURE-C 03/09/22 11:04 Subjective Subjective Patient seen and examined. States pain is better controlled. Plan for MRI of right hip given CT findings consistent with avascular necrosis. Discussed findings with patient. She denies new symptoms or complaints. Discussed plan of care. Objective Data Objective Data Vital Signs: Vital Signs Temp Pulse Resp BP Pulse Ox 98.4 F 73 16 143/49 H 96 03/09/22 10:47 03/09/22 10:47 03/09/22 10:47 03/09/22 10:47 03/09/22 10:47 Oxygen Delivery Method Room Air Weight: 96 lb 8 oz Body Mass Index (BMI) 17.6 Intake & Output: Intake and Output for Last 24 Hours 03/07/22 03/08/22 03/09/22 23:59 23:59 23:59 Intake Total 500 / 500 200 / 200 Balance 500 / 500 200 / 200 Lab / Micro Data Result Diagrams: 03/08/22 16:00 03/08/22 16:00 Labs: Laboratory Results - last 24 hr 03/08/22 16:00: WBC 4.5, RBC 4.34, Hgb 12.5, Hct 36.4 L, MCV 83.9, MCH 28.8, MCHC 34.3, RDW Std Deviation 42.0, RDW Coeff of Obed 13.5, Plt Count 235, MPV 10.2, Immature Gran % (Auto) 0.400, Neut % (Auto) 73.3 H, Lymph % (Auto) 12.2 L, [place] % (Auto) 11.6 H, Eos % (Auto) 0.9, Baso % (Auto) 1.6 H, Absolute Neuts (auto) 3.3, Absolute Lymphs (auto) 0.55 L, Nucleated RBC % 0, Differential Comment SCANNED, Platelet Estimate ADEQUATE, RBC Morphology NORM C+C 03/08/22 16:00: Sodium 134 L, Potassium 3.8, Chloride 102, Carbon Dioxide 27.0, Anion Gap 5, BUN 25 H, Creatinine 0.63, Estim Creat Clear Calc 30.52, Est GFR (MDRD) Af Amer 116, Est GFR (MDRD) Non-Af 95, BUN/Creatinine Ratio 39.6 H, Glucose 261 H, Calcium 9.2 03/08/22 21:20: POC Glucose 345 H 03/09/22 06:26: POC Glucose 171 H Radiography Diagnostic Testing: Radiology Impression Knee X-Ray 03/08/22 14:17 IMPRESSION: Tricompartmental osteoarthrosis as above. Electronically Signed: Steven Figueroa DO at 15:50 EDT , Lower Extremity CT 03/08/22 17:16 IMPRESSION: Flattening of the right femoral head may be consistent with avascular necrosis or related to degenerative changes. Marked joint space narrowing progressed compared to prior imaging studies. Joint effusion. Cannot exclude septic joint in the proper clinical setting. MRI may be helpful for further evaluation. Electronically Signed: Karlene Hawkins MD at 4:24 EDT , Physical Exam Const alert, oriented x3 and no apparent distress Orientation / Consciousness: awake, oriented to person, oriented to place and oriented to time Nutritional Appearance: cachectic HEENT normocephalic and moist oral mucous membranes Eyes PERRL, EOMs intact bilaterally and conjunctivae normal Neck no lymphadenopathy Resp normal respiratory effort and clear to auscultation bilaterally Cardio regular rate, regular rhythm and no murmurs Peripheral Pulses: pulses 2+ throughout GI normal to inspection, nondistended, normoactive bowel sounds, non-tender and non-distended Extremity normal to inspection Skin no rashes or lesions noted Lesions: no lesions Rashes: no rashes Trauma: no lacerations or abrasions Neuro CN's II-XII intact bilaterally, no focal motor deficits, no sensory deficits noted and deep tendon reflexes 2+ bilaterally Psych mental status grossly normal and affect normal Assessment & Plan Assessment/Plan (1) Acute pain of right hip: PLAN: 1. Intractable right hip pain with debility, chronic severe scoliosis/back pain-upcoming appointment with Dr. Abarca, pain management. IV Decadron. As needed pain regimen. PT/OT. Recent MRI of lumbar spine shows multilevel generative changes, dextroscoliosis of the lumbar spine, L5-S1 small central disc herniation, L2-L3 posterior disc bulge osteophyte complex as well as L3-L4 posterior disc bulge osteophyte complex. CT of right hip shows flattening of the right femoral head consistent with avascular necrosis, joint effusion. Cannot exclude septic joint. Obtain MRI of right hip. Pending results, consider orthopedic medicine consult. 2. Severe protein calorie malnutrition-as evidenced by cachectic appearance, reduced BMI, muscle and fat loss. From last admission, patient has lost 10 pounds. Dietitian consulted. 3. Type 2 diabetes mellitus- on Januvia. Accu-Cheks with sliding scale insulin. Add scheduled lispro 5 units TID AC and glargine 10 units QHS. 4. Right carotid artery disease-following with vascular surgery. Continue Plavix, statin. 5. Hypertension-stable, continue amlodipine, hydralazine, losartan. 6. Hyperlipidemia-continue statin. 7. Hypothyroidism-continue Synthroid regimen. 8. Depression-on citalopram. DVT prophylaxis- Lovenox sc This patient was seen by Pat Santiago, VIRAL-C under the supervision of Dr. Coburn. Discharge planning: TCU at discharge pending acceptance. Time spent examining patient, reviewing data and subsequent management of care: 12 Minutes Documented by User: Dr. 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 I talked with Dr. Shah today about seeing the patient in consultation and he is agreed to see the patient. Patient's pain is better today, she states she feels a little bit dizzy from the medications-I believe this is probably from the MS Contin, but the patient walked approximately 200 feet with minimal assistance in the hallway and I think overall she is better. I talked by phone with her PCP who was on vacation (Dr. Bhagat) about her care. On examination she appeared older than her stated age, she does not appear to be in any distress. Vital signs as documented. Skin warm and dry and without overt rashes. Neck without JVD, thyroid appears normal, trachea is midline, neck is supple. Lungs clear, normal air movement was noted. Heart exam notable for regular rhythm, normal sounds and absence of murmurs, rubs or gallops. Abdomen unremarkable and without evidence of organomegaly, masses, or abdominal aortic enlargement, bowel sounds are present in all 4 quadrants, no abdominal tenderness was noted. Extremities nonedematous, no cyanosis was noted, no clubbing was noted. Neuro: Cranial nerves II through XII are grossly intact, no focal motor deficits were noted, sensation to light touch and pinprick is intact, motor exam 5/5 throughout. Psych: Patient is alert and oriented x3, she does not appear anxious or depressed, she does not appear agitated. 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 #4 essential hypertension-patient will remain on her present medications #5 hyperlipidemia-patient is on a statin #6 generalized debility-again patient will be seen by PT and OT, it is unknown whether her insurance will approve the patient to go to a short-term half-way facility. #7 hypothyroidism-patient is on Synthroid #8 type 2 diabetes-patient remains on sliding scale insulin, fingerstick blood sugars will be continued I have reviewed Pat Santiago's progress note including her medical assessment and plan of care and with the above additions endorse it. Total clinical time spent by myself addressing the patient's medical issues, reviewing the patient's data, and collaborating with the patient's care team: 26 minutes Visit Charges OBSV E&M: [id number] Subsequent observation care L3
[2022-03-09] MEDS: morphine SR 15 MG Tablet 30 MG PO ×2 (11:03→21:00)
[2022-03-09] MEDS: Clopidogrel Bisulfate 75 MG Tablet PO (11:03)
[2022-03-09] MEDS: Losartan Potassium 100 MG Tablet PO (11:04)
[2022-03-09] MEDS: Heparin Injection (Vial) 5,000 UNIT/ML VIAL 5000 UNIT SC ×2 (11:04→20:51)
--- NOTE | 2022-03-09 11:20 | CASEMGMT ---
RN MANOLO CERTIFIED INDOOR ENVIRONMENTALIST CM to room to meet with patient for initial transition planning/care coordination assessment. AMBER FRENCH introduced self and role at [facility]. Pt voices understanding and consents to assessment at this time. Pt sitting up in no distress at this time. Pt is A/O at this time and answers all questions appropriately. Care providers, pharmacy, and demographics verified/updated at this time. PCP: Dr Bhagat Specialists: Dr Tena--cardiology, Dr Abarca-pain mgmt Preferred Pharmacy: [facility] Retail Insurance: [employer] Prescription Benefit: Yes Living Will/HPOA: Does not have LW and would like to complete. LUIS ANGEL Mercado, made aware. Pt has HPOA, who is her son, Ramin Redman. LNOK: Son, Ramin. Dtr who lives in [facility] Living Arrangements: Lives alone in [facility] w/2 steps to enter. Has a basement but does not use. is @ [facility]. Pt usually independent w/ADL's and home mgmt tasks, but d/t increased pain, this is becoming more difficult. Pt hires a cleaning lady every 2 weeks. [employer] through [employer] [facility] helps provide transportation as needed, grocery shopping, and some meals. Pt also states she has The most wonderful support system w/friends, family, and mu-ism members, who help w/meals. Pt pays for a lady to come in weekly to arrange her pills for the week. She states this is affordable/does not have any financial issues w/this. Transportation: Pt usually drives self, but d/t pain, this is difficult at times. DME: States has the following DME: rollator, walking stick, RTS, grab bars, medical alert button Pt states no need for further DME at this time. HHC/SNF: Pt has been to [facility] TCU in the past. No hx of HHC. Pt originally had stated she wanted to go to TCU at discharge. Per PT/OT, pt ambulated 250 ft this AM w/therapy w/use of walker. Discussed insurance and prior-auth needed to go to SNF for therapy. Pt states her pain is much better today after being medicated and states the Morphine is helping. She states, if her pain continues to be managed, she feels she would be safe to return home. Discussed options of HHC and OP therapy. Pt interested in HHC. Pt was provided with list of HHC providers including quality and resource use data and consistent with the patient's preferred geographic region, medical needs, and insurance network. The pt's preferred provider is [facility]. Pt states does not feel she needs a nurse or aide, just therapy. Pt wishes to return home and states has no concerns with going home at time of discharge, as long as pain is managed. CM to follow for any further discharge planning/needs. Pt voices no further concerns/needs at this time. Advised pt to ask for CM if any further questions/concerns/needs arise. Voices understanding. PLAN: Home w/HHC, depending on MRI results, ortho consult, and pain level/ability to be managed @ time of discharge. Aishwarya LARSEN RN CM
[2022-03-09] MEDS: Menthol/Lanolin/Calamine/Znox 113 GM Tube 1 APPLIC TOPICAL ×2 (13:56→20:48)
--- NOTE | 2022-03-09 14:25 | CASEMGMT ---
Addendum entered by Jess Watkins 03/09/22 14:43: AMBER FRENCH received call back from Vikash at [facility] and they are able to accept the patient. AMBER FRENCH to update [facility] when patient is discharged. AMBER FRENCH updated patient regarding acceptance of [facility]. Patient had no further questions or concerns at this time. Original Note: AMBER FRENCH updated by CM that patiente is requesting HHC at discharge and preferred provider is [facility]. AMBER FRENCH called and left message with jessica Suhison, at [facility]. Referral faxed to [facility], awaiting call back regarding acceptance. CM will continue to follow this patient and plan for a safe discharge.
--- NOTE | 2022-03-09 14:50 | MRI_ITS ---
EXAM: MR RIGHT LOWER EXTREMITY WITHOUT INTRAVENOUS CONTRAST, HIP CLINICAL INDICATION: avascular necrosis RIGHT HIP PAIN X 3-4 MONTHS TECHNIQUE: Multiplanar and multisequence MR images of the right hip without intravenous contrast. This report was created using [employer] report generation technology. COMPARISON: CT Mar 08 2022 6:09pm FINDINGS: TENDONS: FLEXORS: Unremarkable. Intact. EXTENSORS/HAMSTRING: Unremarkable. Intact. ABDUCTORS: Unremarkable. Intact. ADDUCTORS: Unremarkable. Intact. ROTATORS: Unremarkable. Intact. MUSCLES: Increased STIR signal around the muscles of the right hip suggesting muscular strain. FLUID: See below. LABRUM: Unremarkable. No evidence of a tear on this non-arthrogram exam. CARTILAGE: Unremarkable. Articular cartilage intact. BONES/JOINTS: There is marked joint space narrowing of the RIGHT hip with subchondral sclerosis and subchondral cystic changes. Irregularity of the right and left femoral head with a geographic appearance of STIR signal suggesting old LEFT avascular necrosis. However, there is significantly increased STIR signal in the right femoral head and neck. There is flattening of the superior component and subchondral area of the right femoral head. This suggests acute avascular necrosis. Small joint effusion at the hip. OTHER SOFT TISSUES: Unremarkable. OTHER FINDINGS: Partially visualized right lower quadrant kidney. MRI/Lower Ext Joint Only (Routine) IMPRESSION: 1. The right femoral head has MRI findings consistent with avascular necrosis. 2. 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 3. Increased STIR signal around the muscles of the right hip suggesting muscular strain. Electronically Signed: Ronald Paige MD at 16:07 EDT ,
--- NOTE | 2022-03-09 15:00 | CASEMGMT ---
Social Work Note LUIS ANGEL received call from Lidia with [facility]. LUIS ANGEL updated Lidia with TCU that pt is now stating she would like to return home with [facility]. Jess Hopkins DRYWALL WORKER, HEELER
--- NOTE | 2022-03-09 16:15 | CASEMGMT ---
AMBER FRENCH in to discuss RODRIGUEZ form with patient. RN MANOLO explained RODRIGUEZ form to patient, patient voiced understanding. Patient signed RODRIGUEZ form and filed in chart. Patient provided with copy of signed RODRIGUEZ form. Patient had no further questions or concerns at this time.
--- NOTE | 2022-03-09 20:46 | NURSING ---
blood sugar is 242 via pt's freestyle/jeff
[2022-03-09] MEDS: amLODIPine 10 MG Tablet PO (20:47)
[2022-03-09] MEDS: LINAGLIPTIN 5 MG TABLET PO (20:48)
[2022-03-09] MEDS: Insulin Glargine-YFGN 100 UNIT/ML Pen 10 UNIT SC (20:58)
[2022-03-09] MEDS: Atorvastatin Calcium 10 MG Tablet PO (21:01)
[2022-03-10] VITALS (8 sets, daily range): BP systolic 151–164; BP diastolic 59–79; PULSE 62–79; RESP 14–16; TEMP 36.4–37.2; O2SAT 95–97
--- NOTE | 2022-03-10 02:18 | NURSING ---
blood glucose is 117 via freestyle
[2022-03-10] MEDS: Levothyroxine 88 MCG Tablet PO (05:42)
[2022-03-10] MEDS: 0.9% Saline Lock 10 ML Syringe IV (05:42)
[2022-03-10] MEDS: hydrALAZINE 50 MG Tablet PO ×3 (05:42→21:00)
[2022-03-10] MEDS: dexAMETHasone 4 MG/ML Vial IV (05:42)
[2022-03-10] MEDS: Insulin Lispro 100 UNIT/ML INSULN.PEN SC ×6 (08:25→17:29)
[2022-03-10] MEDS: Menthol/Lanolin/Calamine/Znox 113 GM Tube 1 APPLIC TOPICAL (11:08)
--- NOTE | 2022-03-10 11:10 | CASEMGMT ---
Social Work Note SW participated in rounds. Pt is now stating she would like to hear from insurance from TCU as her family is telling her she needs to go to a SNF. Pt's family is also telling her that she is a burden and using her friends/anabaptist for help. SW in to speak with pt. SW introduced self and role at [facility]. Pt is alert and orientated, engages appropriately in conversation. SW spoke with pt about discharge plans. Pt states that her family and PCP are telling her that she needs to go to SNF/Assisted Living. Pt states well I am of sound mind, and I make my own decisions. SW informed pt that she is her own decision maker and can make her own decisions. Pt states that she has lots of help and support at home. Pt states that there is a Program that will help pt with grocery shopping, meal prep, commercial truck driver, etc. Pt states that she also has a [facility] at [facility] that for two weeks will provide pt with meals 2x a week. Pt states that she also has about four friends that will provide food and assistance. Pt states that she really is set up up good for home. Pt states that she also has a grandson Hung that is willing and able to assist. Pt states that Hung is going over to her home today to work in the garden. Pt states that her son Ramin is telling her though that she is taking advantage of her friends. Pt states that she has told her friends that if they feel she is taking advantage of them to let her know. SW offered support to pt. SW asked pt what she wanted to do. Pt states that she would like to see what her insurance says regarding TCU and if they deny it that she would just go home with [facility]. SW informed pt that this worker typically hears same day from her insurance so she needs to be thinking about also the likeliness of discharging home soon. Pt states understanding. LUIS ANGEL placed a call to Lidia with TCU and left message asking if she can submit for pre-cert if there is still a bed available for pt. LUIS ANGEL waiting for call back. Plan: TCU pending pre-cert vs home with [facility]. Jess Hopkins SHANK SORTER, FURNACE COMBUSTION TESTER
[2022-03-10] MEDS: Heparin Injection (Vial) 5,000 UNIT/ML VIAL 5000 UNIT SC ×2 (11:11→21:04)
[2022-03-10] MEDS: Losartan Potassium 100 MG Tablet PO (11:13)
[2022-03-10] MEDS: Clopidogrel Bisulfate 75 MG Tablet PO (11:14)
[2022-03-10] MEDS: morphine SR 15 MG Tablet 30 MG PO ×2 (11:19→21:00)
--- NOTE | 2022-03-10 12:15 | CASEMGMT ---
Social Work Note SW placed a call to TCU and spoke with Lidia. Lidia states she is getting ready to submit for pre-cert. Plan: TCU pending pre-cert vs Home with [facility] Jess Hopkins MSW, HEEL TOP LIFT SPLITTER
--- NOTE | 2022-03-10 12:48 | PN.HOSP_ITS ---
Documented by User: Pat Santiago NP, INTEGRATION TECHNICIAN-C 03/10/22 13:07 Subjective Subjective Patient seen and examined. Reports pain remains under better control. Still unsure about returning home, would like to proceed with TCU pending insurance approval. Objective Data Objective Data Vital Signs: Vital Signs Temp Pulse Resp BP Pulse Ox 97.7 F L 68 14 154/59 H 97 03/10/22 07:28 03/10/22 07:28 03/10/22 07:31 03/10/22 07:28 03/10/22 07:31 Oxygen Delivery Method Room Air Weight: 96 lb 8 oz Body Mass Index (BMI) 17.6 Intake & Output: Intake and Output for Last 24 Hours 03/08/22 03/09/22 03/10/22 23:59 23:59 23:59 Intake Total 500 / 500 450 / 450 100 / 100 Balance 500 / 500 450 / 450 100 / 100 Lab / Micro Data Result Diagrams: 03/08/22 16:00 03/08/22 16:00 Radiography Diagnostic Testing: Radiology Impression Lower Extremity MRI 03/09/22 14:50 IMPRESSION: 1. The right femoral head has MRI findings consistent with avascular necrosis. 2. 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 3. Increased STIR signal around the muscles of the right hip suggesting muscular strain. Electronically Signed: Ronald Paige MD at 16:07 EDT Reading Location ID and State: [facility] / [place] , Service support , Physical Exam Const alert, oriented x3 and no apparent distress Orientation / Consciousness: awake, oriented to person, oriented to place and oriented to time Nutritional Appearance: cachectic HEENT normocephalic and moist oral mucous membranes Eyes PERRL, EOMs intact bilaterally and conjunctivae normal Neck no lymphadenopathy Resp normal respiratory effort and clear to auscultation bilaterally Cardio regular rate, regular rhythm and no murmurs Peripheral Pulses: pulses 2+ throughout GI normal to inspection, nondistended, normoactive bowel sounds, non-tender and non-distended Extremity normal to inspection Skin no rashes or lesions noted Lesions: no lesions Rashes: no rashes Trauma: no lacerations or abrasions Neuro CN's II-XII intact bilaterally, no focal motor deficits, no sensory deficits noted and deep tendon reflexes 2+ bilaterally Psych mental status grossly normal and affect normal Assessment & Plan Assessment/Plan (1) Acute pain of right hip: PLAN: 1. Intractable right hip pain with debility, chronic severe scoliosis/back pain-upcoming appointment with Dr. Abarca, pain management. As needed pain regimen. PT/OT. Recent MRI of lumbar spine shows multilevel gene rative changes, dextroscoliosis of the lumbar spine, L5-S1 small central disc herniation, L2-L3 posterior disc bulge osteophyte complex as well as L3-L4 posterior disc bulge osteophyte complex. CT of right hip shows flattening of the right femoral head consistent with avascular necrosis, joint effusion. Cannot exclude septic joint. 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 Orthopedic medicine consul pending. 2. Severe protein calorie malnutrition-as evidenced by cachectic appearance, reduced BMI, muscle and fat loss. From last admission, patient has lost 10 pounds. Dietitian consulted. 3. Type 2 diabetes mellitus- on Januvia. Accu-Cheks with sliding scale insulin. Scheduled lispro 5 units TID AC and glargine 10 units QHS. 4. Right carotid artery disease-following with vascular surgery. Continue Plavix, statin. 5. Hypertension-stable, continue amlodipine, hydralazine, losartan. 6. Hyperlipidemia-continue statin. 7. Hypothyroidism-continue Synthroid regimen. 8. Depression-on citalopram. DVT prophylaxis- Heparin sc This patient was seen by Pat Santiago NP-C under the supervision of Dr. Reji austin. Discharge planning: TCU pending pre-cert vs [facility]. Time spent examining patient, reviewing data and subsequent management of care: 12 minutes Documented by User: Dr. Kirt Reardon DO 03/10/22 13:27 Subjective Subjective Feels well. Pain in her right hip is doing much better. Patient is ambulating without significant difficulty. Objective Data Lab / Micro Data Result Diagrams: 03/08/22 16:00 03/08/22 16:00 Physical Exam Const alert and no apparent distress Resp normal respiratory effort, no retractions, no use of accessory muscles and clear to auscultation bilaterally Cardio regular rate, regular rhythm, S1 normal heart sound and S2 normal heart sound GI normal to inspection, nondistended, normoactive bowel sounds, soft to palpation, non-tender and non-distended Extremity Extremity Narrative: Full range of motion of right hip. Assessment & Plan Assessment/Plan (1) Avascular necrosis of bone of hip: PLAN: Patient seen and examined independently. Data and vitals reviewed. I agree with the above note by the nurse practitioner. 1. Avascular necrosis of the right hip Pain is manageable at this time. Orthopedics on consult. Patient aware that any surgery would likely be done at a later point. 2. Debility due to pain Looking at TCU patient aware that that may not work out due to how much she is able to ambulate but is open to the possibility of going to the TCU. She is not against going home with home care. Greater than 25 minutes of which greater than 50% of time was counseling patient at bedside about her hip, avascular necrosis and rehab. Charges/Coding Visit Charges OBSV E&M: 81961 Subsequent observation care L3
[2022-03-10] MEDS: Glucerna Shake 120 ML LIQUID PO ×3 (15:02→21:02)
--- NOTE | 2022-03-10 16:00 | CASEMGMT ---
Social Work Note SW placed a call to Lidia with TCU and left message requesting update on pre-cert. SW in to speak with pt. SW updated pt that this worker is leaving soon for the day and that pre-cert for TCU is still pending. Pt states she would like to remain at [facility] until determination is made for TCU as she is too tired to leave today anyway. SW informed pt that this worker is hoping to hear something from insurance tomorrow. Pt states understanding, state that if she goes home her son would not be able to transport pt home until after 4:00pm. SW to continue to follow. Plan: TCU pending pre-cert Jess Hopkins WINE MASTER, DRIP BOX TENDER
--- NOTE | 2022-03-10 17:14 | CONS.ORTHO ---
HPI Consult Data Date of Consult: 03/10/22 HPI Narrative HPI Narrative: ELLEN ESTRADA, is a 81 F who presents to [facility] due to intractable pain and debility. She has a known history of severe scoliosis and chronic back pain. Since [place] time, patient has had worsening posterior right low back pain/hip pain. She also reports right knee pain. She has been on tramadol and some [place] from her PCP. [facility] She was advised by her PCP to go to emergency department due to intractable pain. She was admitted under the service of the hospitalist. Multimodal pain control was utilized. Her pain was much improved with oral narcotics and IV steroids. An MRI of her right hip was obtained due to negative hip x-rays which demonstrated AVN. I was consulted for recommendations. At time of my examination, patient states her pain is much more improved. Denies numbness or tingling. States she has been up with PT and OT walking with a walker. COUNTS INCLUDE 234 BEDS AT THE [facility] Medical History (Updated 03/10/22 @ 13:[address] Kirt Reardon, ) Bilateral carotid bruits Carotid artery stenosis Carotid stenosis, bilateral Chronic constipation Depression Diabetes mellitus Diabetes mellitus, type II Dizziness Essential hypertension Hyperlipidemia Hypothyroidism Osteoporosis Transaminitis Valvular heart disease Home Medications Synthroid 88 mcg tablet 88 mcg PO DAILY #90 tab NS 07/16/20 [Rx Last Taken 03/08/22] rosuvastatin 5 mg tablet 5 mg PO DAILY tab 10/21/20 [History Last Taken 03/08/22] cholecalciferol (vitamin D3) 125 mcg (5,000 unit) capsule 125 mcg PO DAILY 10/30/20 [History Last Taken 03/08/22] clopidogrel 75 mg tablet 75 mg PO DAILY tab 10/30/20 [History Last Taken 03/08/22] Januvia 100 mg PO DAILY 09/21/21 [History Last Taken 03/07/22] losartan 100 mg PO DAILY 09/23/21 [History Last Taken 03/08/22] hydralazine 50 mg tablet 50 mg PO TID tab 11/04/21 [History Last Taken 03/08/22] amlodipine 10 mg tablet 10 mg PO QHS 30 Days #30 tab 02/09/22 [Rx Last Taken 03/07/22] Allergy/AdvReac Type Severity Reaction Status Date / Time metformin Allergy Severe Rash Verified 03/08/22 13:59 neomycin [Neomycin] Allergy Severe Unknown Verified 03/08/22 13:59 Tetracyclines Allergy Severe Anaphylaxis Verified 03/08/22 13:59 Sulfa (Sulfonamide Allergy Constipatio Verified 03/08/22 17:29 Antibiotics) n Family History Mother Thyroid disorder Father Alzheimer disease Surgical History History of foot surgery History of left heart catheterization (12/28/14) History of thyroidectomy History of tonsillectomy and adenoidectomy Social History household members: none Smoking Status: Former smoker how long ago did patient quit smokin years ago alcohol intake: current alcohol intake frequency: a few times a month Alcohol type: wine substance use type: does not use caffeine: Yes Type: coffee Number of servings: 2 ROS ROS Narrative 12 point review of systems obtained, negative less otherwise noted in HPI. Vital Signs Vital Signs Vital Signs: 03/09/22 19:24 03/09/22 19:30 03/09/22 20:40 Temperature 99 F Temperature Source Oral Pulse Rate 64 81 Pulse Strength Respiratory Rate 18 Respiratory Effort Normal Respiratory Depth Normal Respiratory Pattern Normal Blood Pressure 152/56 H Blood Pressure [BP] 163/67 H Blood Pressure Mean 88 Blood Pressure Mean [BP] 99 Blood Pressure Source Blood Pressure Position Blood Pressure Location Pulse Ox 95 Oxygen Delivery Method Room Air Room Air 03/09/22 20:48 03/09/22 21:04 03/10/22 02:19 Temperature 99 F Temperature Source Temporal Pulse Rate 81 79 Pulse Strength Normal (2+) Respiratory Rate 16 Respiratory Effort Respiratory Depth Respiratory Pattern Blood Pressure 163/67 H 161/79 H Blood Pressure [BP] Blood Pressure Mean 106 Blood Pressure Mean [BP] Blood Pressure Source Blood Pressure Position Blood Pressure Location Pulse Ox 95 Oxygen Delivery Method Room Air 03/10/22 05:36 03/10/22 05:42 03/10/22 07:28 Temperature 97.7 F L Temperature Source Oral Pulse Rate 72 72 68 Pulse Strength Respiratory Rate 14 Respiratory Effort Respiratory Depth Respiratory Pattern Blood Pressure 156/62 H 154/59 H Blood Pressure [BP] 156/62 H Blood Pressure Mean 90 Blood Pressure Mean [BP] 93 Blood Pressure Source Monitor Blood Pressure Position Supine Blood Pressure Location Right Arm Pulse Ox 97 Oxygen Delivery Method Room Air 03/10/22 07:31 03/10/22 13:50 03/10/22 15:00 Temperature 97.6 F L Temperature Source Oral Pulse Rate 72 72 Pulse Strength Respiratory Rate 14 16 Respiratory Effort Normal Respiratory Depth Normal Respiratory Pattern Normal Blood Pressure 151/64 H Blood Pressure [BP] Blood Pressure Mean 93 Blood Pressure Mean [BP] Blood Pressure Source Monitor Blood Pressure Position Sitting Blood Pressure Location Right Arm Pulse Ox 97 97 Oxygen Delivery Method Room Air Room Air Weight Weight: 96 lb 8.012 oz Body Mass Index (BMI) 17.6 Physical Exam Narrative General -A&Ox3, NAD, appears stated age. Vital signs stable, afebrile. Respiratory -normal work of breathing, no intercostal retractions. CV -pulses regular, brisk capillary refill ?4 limbs. Abdomen-soft, nontender, nondistended. No guarding, rigidity, rebound tenderness. Musculoskeletal/neurologic -full range of motion nontender throughout bilateral upper extremities, left lower extremity with full sensation and strength in all dermatomes and myotomes. No midline cervical tenderness.Left lower extremity-no obvious deformity. Pain with logroll of the left lower extremity. Nontender throughout the right knee femoral shaft, tibial shaft and right foot/ankle. Brisk capillary refill. Sensation intact light touch L3-S1 dermatomes. DF, PF, EHL intact. DP, PT 2+. Pelvis is stable, nontender. Skin is intact without lacerations, abrasions. No ecchymosis noted. No pain with internal or external rotation of the right hip. Tenderness to palpation along the medial joint line right knee. SI joint tenderness as well as lumbar spine paraspinal tenderness. Marked kyphotic posture is noted. Medical Records Data Medical Nutrition Assessment Dietitian: Malnutrition Criteria Met Start: 03/10/22 13:59 Freq: Status: Active Protocol: Document 03/10/22 14:15 AG (Rec: 03/10/22 14:15 [id number]) Nutrition Malnutrition Evidence of Malnutrition Exists Yes Malnutrition (severe): Chronic Evidenced By Weight Loss (Severe),Physical Changes (Severe) Clinical Problem Chronic Disease or Condition Related Malnutrition Etiology severe, chronic malnutrition r /t inadequate energy intake d/ t inconsistent PO intake Signs/Symptoms as evidenced by unintentional wt loss of 15#/13% x 6 months, severe muscle wasting/fat loss per physical exam in upper extremities, clavicle, acromion, and temporal areas, estimated PO intake meeting < 75% of estimated energy needs >3 months, BMI 17.6 Status Active Problem Recommendation Dietitian Recommendations/Changes continue 1800 calorie controlled, consistent CHO diet; will consider liberalizing diet if PO intake declines; will add 120mL glucerna 4x/day w/medpass for additional protein/calories if consumed given evidence of malnutrition. Lab / Micro Data Result Diagrams: 03/08/22 16:00 03/08/22 16:00 Assessment & Plan Assessment/Plan (1) Avascular necrosis of bone of hip: PLAN: Patient seen and examined. Diagnosis reviewed with the patient. I explained based on her MRI findings and flattening of the femoral head she has near end-stage avascular necrosis of her right hip. I explained that sometimes this is tolerated and is able be treated without surgery. Certainly, if pain is no longer able to be controlled with pain medication in the future, she may require a right total hip arthroplasty. Patient expressed understanding. I would recommend continued analgesics per primary, WBAT RLE. Follow-up with Dr. Abarca for pain management. I would be happy to see the patient in the office if pain is no longer controlled to discuss possible right hip surgery. Thank you for this consultation. I will sign off. Do not hesitate to call if any questions or concerns arise.
[2022-03-10] MEDS: LINAGLIPTIN 5 MG TABLET PO (21:00)
[2022-03-10] MEDS: amLODIPine 10 MG Tablet PO (21:00)
[2022-03-10] MEDS: Atorvastatin Calcium 10 MG Tablet PO (21:00)
[2022-03-10] MEDS: Insulin Glargine-YFGN 100 UNIT/ML Pen 10 UNIT SC (21:04)
[2022-03-11] VITALS (7 sets, daily range): BP systolic 129–158; BP diastolic 40–64; PULSE 58–71; RESP 16–18; TEMP 36.4–37.6; O2SAT 95–97
[2022-03-11] MEDS: hydrALAZINE 50 MG Tablet PO ×2 (04:17→14:03)
[2022-03-11] MEDS: Lactulose 20 GM/30 ML UDC PO (04:17)
[2022-03-11] MEDS: Levothyroxine 88 MCG Tablet PO (04:17)
[2022-03-11] MEDS: predniSONE 20 MG Tablet 40 MG PO (08:01)
--- NOTE | 2022-03-11 08:38 | CASEMGMT ---
Addendum entered by Jess Hopkins 03/11/22 09:56: SW in to speak with pt. SW informed pt that she was denied TCU. Pt states she is agreeable to returning home with [facility]. Pt states that she will call around to see if someone is able to transport her home today. PA updated. Plan: Home with [facility] today Original Note: Social Work Note SW received message from Lidia with TCU stating pt was denied TCU. Jses Hopkins ANGLEDOZER OPERATOR, BENZENE WORKER
[2022-03-11] MEDS: Insulin Lispro 100 UNIT/ML INSULN.PEN SC (10:12)
[2022-03-11] MEDS: BENZOCAINE/MENTHOL 1 LOZENGE MUCOUS MEM (10:21)
[2022-03-11] MEDS: Menthol/Lanolin/Calamine/Znox 113 GM Tube 1 APPLIC TOPICAL (10:21)
[2022-03-11] MEDS: Clopidogrel Bisulfate 75 MG Tablet PO (10:21)
[2022-03-11] MEDS: Losartan Potassium 100 MG Tablet PO (10:21)
[2022-03-11] MEDS: Glucerna Shake 120 ML LIQUID PO (10:21)
[2022-03-11] MEDS: morphine SR 15 MG Tablet 30 MG PO (10:21)
[2022-03-11] MEDS: Heparin Injection (Vial) 5,000 UNIT/ML VIAL 5000 UNIT SC (10:21)
--- NOTE | 2022-03-11 10:49 | PCM.DC ---
Discharge Instructions Diet Discharge Diet: No restrictions Activity Discharge Activity: Return to Normal Activity Dressing / Incision Call your doctor if you observe: Uncontrolled pain Follow Up Care Test Results: Test results from this visit will be discussed in further detail at your follow-up appointment, if applicable. Discharge Plan Admission Admit Date/Time: 03/08/22 16:48 Primary Reason for Your Visit: Intractable pain, right hip avascular necrosis Attending Provider: Kirt Reardon Primary Care Provider: Karla Bhagat Consulting Providers: Anthony Shah Instructions Additional Instructions / Restrictions: If hip pain is uncontrolled, call Dr. Shah for follow-up to discuss hip replacement. Discharge Orders/Prescriptions Prescriptions: New acetaminophen [Tylenol] 325 mg Tablet 650 mg PO Q6H PRN PRN (Reason: Pain Score 1-10/Temp > 100.7 F) Qty: 0 RF: 0 prednisone 20 mg Tablet 40 mg PO BREAKFAST 3 Days Qty: 6 RF: 0 oxycodone 5 mg Tablet 5 mg PO Q6H PRN PRN (Reason: Pain Score 6-10) 7 Days Qty: 15 RF: 0 Continued levothyroxine [Synthroid] 88 mcg tablet 88 mcg PO DAILY Qty: 90 RF: 3 rosuvastatin 5 mg tablet 5 mg PO DAILY RF: 0 clopidogrel 75 mg tablet 75 mg PO DAILY RF: 0 cholecalciferol (vitamin D3) 125 mcg (5,000 unit) capsule 125 mcg PO DAILY RF: 0 hydralazine 50 mg tablet 50 mg PO TID RF: 0 Januvia 100 mg tablet 100 mg PO DAILY RF: 0 losartan 100 mg tablet 100 mg PO DAILY RF: 0 amlodipine 10 mg tablet 10 mg PO QHS 30 Days Qty: 30 RF: 0 Referrals / Follow Up: Karla Bhagat MD [Primary Care Provider] - Within 1 Week Scooby Monroy MD [STAFF PHYSICIAN] - See Referral Note (As scheduled) Anthony Shah DO [STAFF PHYSICIAN] - Within 2 Weeks (If right hip pain is uncontrolled, follow-up in office to discuss to right hip surgery.) Disposition Disposition (needs filled in before D/C Order can be placed): Home Health Service
--- NOTE | 2022-03-11 11:07 | DS.PCM_ITS ---
Documented by User: Pat Santiago NP, [employer] 03/11/22 11:16 Providers Date of Admission: 03/08/22 Date of Discharge: 03/11/22 Primary Care Physician: Dr. Karla Bhagat MD Consultations 03/09/22 17:15 Consult: Orthopedics Routine Consulting Provider: Anthony Shah Reason for Consult: asvascular necrosis EMERGENT Consult: No MD Notified: Yes Date Notified: 03/09/22 Time Notified: 17:15 Method of Notification: Verbal Reason For Visit: INTRACTABLE PAIN AND DEBILITY Diagnosis Discharge Diagnosis (1) Avascular necrosis of bone of hip: Status: Acute Code(s): M87.059 - Idiopathic aseptic necrosis of unspecified femur Medications at Discharge Home Medications Synthroid 88 mcg tablet 88 mcg PO DAILY #90 tab NS 07/16/20 rosuvastatin 5 mg tablet 5 mg PO DAILY tab 10/21/20 cholecalciferol (vitamin D3) 125 mcg (5,000 unit) capsule 125 mcg PO DAILY 10/30/20 clopidogrel 75 mg tablet 75 mg PO DAILY tab 10/30/20 Januvia 100 mg PO DAILY 09/21/21 losartan 100 mg PO DAILY 09/23/21 hydralazine 50 mg tablet 50 mg PO TID tab 11/04/21 amlodipine 10 mg tablet 10 mg PO QHS 30 Days #30 tab 02/09/22 acetaminophen [Tylenol] 650 mg PO Q6H PRN PRN #0 tab 03/11/22 oxycodone 5 mg PO Q6H PRN PRN 7 Days #15 tab 03/11/22 prednisone 40 mg PO BREAKFAST 3 Days #6 tab 03/11/22 Hospital Course Operations None Procedures None Summary of Care Provided Hospital Course: Patient is an 81-year-old female admitted 03/08/22 due to intractable right hip pain with debility. 1. Intractable right hip pain with debility secondary to avascular necrosis, chronic severe scoliosis/back pain-upcoming appointment with Dr. Abarca, pain management. Recent MRI of lumbar spine shows multilevel generative changes, dextroscoliosis of the lumbar spine, L5-S1 small central disc herniation, L2-L3 posterior disc bulge osteophyte complex as well as L3-L4 posterior disc bulge osteophyte complex. CT of right hip shows flattening of the right femoral head consistent with avascular necrosis, joint effusion. Cannot exclude septic joint. 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 Orthopedic medicine consulted. Noted near end-stage avascular necrosis of the right hip. If patient's pain is controlled, may be able to be treated without surgery. If patient continues to have significant pain upon discharge, follow-up with orthopedic medicine to discuss surgery. As needed pain regimen. Home health with PT/OT at discharge. Patient amendable to transitional care unit however she was denied by insurance based on her capability with therapy. 2. Severe protein calorie malnutrition-as evidenced by cachectic appearance, reduced BMI, muscle and fat loss. From last admission, patient has lost 10 pounds. Dietitian consulted during admission. Continue dietary supplementation with Glucerna 4 times a day as recommended by dietitian. 3. Type 2 diabetes mellitus- on Januvia. Patient has been on insulin in the past. She states she was taken off due to hypoglycemia. She would not like to begin any new medications for glucose control. Follow-up with primary care provider. 4. Right carotid artery disease-following with vascular surgery. Continue Plavix, statin. 5. Hypertension-stable, continue amlodipine, hydralazine, losartan. 6. Hyperlipidemia-continue statin. 7. Hypothyroidism-continue Synthroid regimen. 8. Depression-on citalopram. Physical Exam Const alert, oriented x3 and no apparent distress Orientation / Consciousness: awake, oriented to person, oriented to place and oriented to time Nutritional Appearance: cachectic HEENT normocephalic and moist oral mucous membranes Eyes PERRL, EOMs intact bilaterally and conjunctivae normal Neck no lymphadenopathy Resp normal respiratory effort and clear to auscultation bilaterally Cardio regular rate, regular rhythm and no murmurs Peripheral Pulses: pulses 2+ throughout GI normal to inspection, nondistended, normoactive bowel sounds, non-tender and non-distended Extremity normal to inspection Skin no rashes or lesions noted Lesions: no lesions Rashes: no rashes Trauma: no lacerations or abrasions Neuro CN's II-XII intact bilaterally, no focal motor deficits, no sensory deficits noted and deep tendon reflexes 2+ bilaterally Psych mental status grossly normal and affect normal Patient seen and examined prior to discharge. Physical assessment as noted above. Patient is stable for discharge with follow up recommendations as noted above. This patient was seen by Pat Santiago NP-[place] under the supervision of Dr. Reardon. Time spent examining patient, reviewing data and subsequent management of care: 16 minutes Medical Records Data Medical Nutrition Assessment Dietitian: Malnutrition Criteria Met Start: 03/10/22 13:59 Freq: Status: Active Protocol: Document 03/10/22 14:15 AG (Rec: 03/10/22 14:15 AG [id number]) Nutrition Malnutrition Evidence of Malnutrition Exists Yes Malnutrition (severe): Chronic Evidenced By Weight Loss (Severe),Physical Changes (Severe) Clinical Problem Chronic Disease or Condition Related Malnutrition Etiology severe, chronic malnutrition r /t inadequate energy intake d/ t inconsistent PO intake Signs/Symptoms as evidenced by unintentional wt loss of 15#/13% x 6 months, severe muscle wasting/fat loss per physical exam in upper extremities, clavicle, acromion, and temporal areas, estimated PO intake meeting < 75% of estimated energy needs >3 months, BMI 17.6 Status Active Problem Recommendation Dietitian Recommendations/Changes continue 1800 calorie controlled, consistent CHO diet; will consider liberalizing diet if PO intake declines; will add 120mL glucerna 4x/day w/medpass for additional protein/calories if consumed given evidence of malnutrition. Weight / BMI Weight Weight: 96 lb 8.012 oz Body Mass Index (BMI) 17.6 ABG / Lab / Microbiology Data Result Diagrams: 03/08/22 16:00 03/08/22 16:00 D/C Instructions Discharge Diet: No restrictions Call your doctor if you observe: Uncontrolled pain Meaningful Use Info Meaningful Use Diagnoses (Choose all that apply): None applicable Discharge Plan Admission Admit Date/Time: 03/08/22 16:48 Primary Reason for Your Visit: Intractable pain, right hip avascular necrosis Attending Provider: Kirt Reardon Primary Care Provider: Karla Bhagat Consulting Providers: Anthony Shah Instructions Additional Instructions / Restrictions: If hip pain is uncontrolled, call Dr. Shah for follow-up to discuss hip replacement. Discharge Orders/Prescriptions Prescriptions: New acetaminophen [Tylenol] 325 mg Tablet 650 mg PO Q6H PRN PRN (Reason: Pain Score 1-10/Temp > 100.7 F) Qty: 0 RF: 0 prednisone 20 mg Tablet 40 mg PO BREAKFAST 3 Days Qty: 6 RF: 0 oxycodone 5 mg Tablet 5 mg PO Q6H PRN PRN (Reason: Pain Score 6-10) 7 Days Qty: 15 RF: 0 Continued levothyroxine [Synthroid] 88 mcg tablet 88 mcg PO DAILY Qty: 90 RF: 3 rosuvastatin 5 mg tablet 5 mg PO DAILY RF: 0 clopidogrel 75 mg tablet 75 mg PO DAILY RF: 0 cholecalciferol (vitamin D3) 125 mcg (5,000 unit) capsule 125 mcg PO DAILY RF: 0 hydralazine 50 mg tablet 50 mg PO TID RF: 0 Januvia 100 mg tablet 100 mg PO DAILY RF: 0 losartan 100 mg tablet 100 mg PO DAILY RF: 0 amlodipine 10 mg tablet 10 mg PO QHS 30 Days Qty: 30 RF: 0 Referrals / Follow Up: Karla Bhagat MD [Primary Care Provider] - Within 1 Week Scooby Monryo MD [STAFF PHYSICIAN] - See Referral Note (As scheduled) Anthony Shah DO [STAFF PHYSICIAN] - Within 2 Weeks (If right hip pain is uncontrolled, follow-up in office to discuss to right hip surgery.) Disposition Disposition (needs filled in before D/C Order can be placed): Home Health Service Documented by User: Dr. Krit Reardon DO 03/11/22 12:41 Providers Date of Admission: 03/08/22 Reason For Visit: INTRACTABLE PAIN AND DEBILITY Medications at Discharge Home Medications Synthroid 88 mcg tablet 88 mcg PO DAILY #90 tab NS 07/16/20 rosuvastatin 5 mg tablet 5 mg PO DAILY tab 10/21/20 cholecalciferol (vitamin D3) 125 mcg (5,000 unit) capsule 125 mcg PO DAILY 10/30/20 clopidogrel 75 mg tablet 75 mg PO DAILY tab 10/30/20 Januvia 100 mg PO DAILY 09/21/21 losartan 100 mg PO DAILY 09/23/21 hydralazine 50 mg tablet 50 mg PO TID tab 11/04/21 amlodipine 10 mg tablet 10 mg PO QHS 30 Days #30 tab 02/09/22 acetaminophen [Tylenol] 650 mg PO Q6H PRN PRN #0 tab 03/11/22 oxycodone 5 mg PO Q6H PRN PRN 7 Days #15 tab 03/11/22 prednisone 40 mg PO BREAKFAST 3 Days #6 tab 03/11/22 Hospital Course Procedures None Summary of Care Provided Minutes Spent on Discharge: 32 Hospital Course: Patient seen and examined independently. Data and vitals reviewed. I agree with the above note by the nurse practitioner. 1. Avascular necrosis of the right hip Pain is manageable at this time. Orthopedics on consult. No plans for surgery at this point time. Patient was seen by orthopedics. Patient aware that any surgery would likely be done at a later point. 2. Debility due to pain Declined for TCU by insurance. Patient will be going home with home health ca re. Looking at TCU patient aware that that may not work out due to how much she is able to ambulate but is open to the possibility of going to the TCU. She is not against going home with home care. Physical Exam HEENT normocephalic and head/scalp atraumatic Resp normal respiratory effort, no retractions, no use of accessory muscles and clear to auscultation bilaterally Cardio regular rate, regular rhythm, S1 normal heart sound and S2 normal heart sound GI normal to inspection, nondistended, normoactive bowel sounds Neuro Sensorium / Orientation: awake and alert ABG / Lab / Microbiology Data Result Diagrams: 03/08/22 16:00 03/08/22 16:00 Discharge Plan Admission Admit Date/Time: 03/08/22 16:48 Primary Reason for Your Visit: Intractable pain, right hip avascular necrosis Attending Provider: Kirt Reardon Primary Care Provider: Karla Bhagat Consulting Providers: Anthony Shah Instructions Additional Instructions / Restrictions: If hip pain is uncontrolled, call Dr. Shah for follow-up to discuss hip replacement. Discharge Orders/Prescriptions Prescriptions: New acetaminophen [Tylenol] 325 mg Tablet 650 mg PO Q6H PRN PRN (Reason: Pain Score 1-10/Temp > 100.7 F) Qty: 0 RF: 0 prednisone 20 mg Tablet 40 mg PO BREAKFAST 3 Days Qty: 6 RF: 0 oxycodone 5 mg Tablet 5 mg PO Q6H PRN PRN (Reason: Pain Score 6-10) 7 Days Qty: 15 RF: 0 Continued levothyroxine [Synthroid] 88 mcg tablet 88 mcg PO DAILY Qty: 90 RF: 3 rosuvastatin 5 mg tablet 5 mg PO DAILY RF: 0 clopidogrel 75 mg tablet 75 mg PO DAILY RF: 0 cholecalciferol (vitamin D3) 125 mcg (5,000 unit) capsule 125 mcg PO DAILY RF: 0 hydralazine 50 mg tablet 50 mg PO TID RF: 0 Januvia 100 mg tablet 100 mg PO DAILY RF: 0 losartan 100 mg tablet 100 mg PO DAILY RF: 0 amlodipine 10 mg tablet 10 mg PO QHS 30 Days Qty: 30 RF: 0 Referrals / Follow Up: Karla Bhagat MD [Primary Care Provider] - Within 1 Week Scooby Monroy MD [STAFF PHYSICIAN] - See Referral Note (As scheduled) Anthony Shah DO [STAFF PHYSICIAN] - Within 2 Weeks (If right hip pain is uncontrolled, follow-up in office to discuss to right hip surgery.) Disposition Disposition (needs filled in before D/C Order can be placed): Home Health Service Charges/Coding Visit Charges OBSV E&M: 12372 Observation care discharge
--- NOTE | 2022-03-11 11:28 | CASEMGMT ---
AMBER FRENCH updated Vikash at [facility] that patient will be discharging today. Per Vikash, she will be seen tomorrow. AMBER FRENCH updated patient regarding start of care for tomorrow with [facility].
[2022-03-11] MEDS: oxyCODONE 5 MG Tablet PO (11:46)
--- NOTE | 2022-03-11 14:22 | PHA.DC.MC ---
Pharmacy Service has performed discharge medication reconciliation and counseling for this patient. 1. ACETAMINOPHEN 650MG PO Q6H PRN PAIN 2. OXYCODONE 5MG PO Q6H PRN PAIN 6-10 3. PREDNISONE 40MG PO BREAKFAST X 3 DAYS The patient's discharge medication list was reviewed for discrepancies and discrepancies were resolved. Home Medications Synthroid 88 mcg tablet 88 mcg PO DAILY #90 tab NS 07/16/20 rosuvastatin 5 mg tablet 5 mg PO DAILY tab 10/21/20 cholecalciferol (vitamin D3) 125 mcg (5,000 unit) capsule 125 mcg PO DAILY 10/30/20 clopidogrel 75 mg tablet 75 mg PO DAILY tab 10/30/20 Januvia 100 mg PO DAILY 09/21/21 losartan 100 mg PO DAILY 09/23/21 hydralazine 50 mg tablet 50 mg PO TID tab 11/04/21 amlodipine 10 mg tablet 10 mg PO QHS 30 Days #30 tab 02/09/22 acetaminophen [Tylenol] 650 mg PO Q6H PRN PRN #0 tab 03/11/22 oxycodone 5 mg PO Q6H PRN PRN 7 Days #15 tab 03/11/22 prednisone 40 mg PO BREAKFAST 3 Days #6 tab 03/11/22 The patient was counseled on the following discharge medications and changes in medications for homegoing were reviewed. The Reason for Use, instructions for use, and potential side effects were reviewed for all new medications. The patient's questions regarding all of their medications were answered. The patient was able to verbally demonstrate an understanding of their discharge medications.
== END 2022-03-11 14:33 | disposition home health service (06) ==
LOC: ED 15:57 → MS3 17:31
PROVIDERS: Admitting Provider Internal Medicine; Emergency Provider Emergency Medicine; PCP Internal Medicine
DX: M87.059 Idiopathic aseptic necrosis of unspecified femur (principal); E43 Unspecified severe protein-calorie malnutrition; I77.9 Disorder of arteries and arterioles, unspecified; E11.9 Type 2 diabetes mellitus without complications; R53.81 Other malaise; E89.0 Postprocedural hypothyroidism; M41.9 Scoliosis, unspecified; E78.5 Hyperlipidemia, unspecified; F32.A Depression, unspecified; Z79.02 Long term (current) use of antithrombotics/antiplatelets; Z87.891 Personal history of nicotine dependence; I10 Essential (primary) hypertension; Z79.899 Other long term (current) drug therapy; Z79.890 Hormone replacement therapy; R29.6 Repeated falls; Z68.1 Body mass index [BMI] 19.9 or less, adult; M51.27 Other intervertebral disc displacement, lumbosacral region; M51.36 Other intervertebral disc degeneration, lumbar region
CPT/HCPCS: 73564; 73700; 73721; 80048; 82962; 85025; 96372; 96374; 96375; 96376; 97110; 97162; 97166; 97530; 97535; 97802; 99218; 99284; A4216; G0378; J2405

== ENCOUNTER 2022-03-16 08:40 | Day surgery (SDC) | payer MEDICARE, SELFPAY ==
[2022-03-16] MEDS: Lactated Ringers 1,000 ML 15 ML IV (09:00)
[2022-03-16 09:16] VITALS: BP 137/55; PULSE 64; RESP 16; TEMP 36.9; O2SAT 100
[2022-03-16 09:36] LABS: Bedside Glucose 235 mg/dL (74-106)
--- NOTE | 2022-03-16 09:50 | RAD_ITS ---
INDICATION: RT HIP INJECTION EXAMINATION/TECHNIQUE: X-RAY - XR Hip Unilateral with Pelvis when performed; 1 View COMPARISON: 12/01/2021. FLUOROSCOPY TIME: 3.8 seconds FLUOROSCOPY DOSE: 0.48 mGy FINDINGS: Two fluoroscopic images were obtained intraoperatively. Images demonstrate the needle placement and contrast injection. No radiologist was present for the procedure, please refer to operative report for details. RAD/Fluoro Guided Needle Placement IMPRESSION: Please refer to operative report for details. Electronically Signed: Anmol Edwards MD at 14:16 EDT ,
[2022-03-16] MEDS: Bupivacaine 0.25% 30 ML Vial (09:54)
[2022-03-16] MEDS: Lidocaine 1% (5 ml sdv) 5 ML Vial (09:54)
[2022-03-16] MEDS: MethylPREDNISolone Acetate 80 MG/ML Vial (09:54)
[2022-03-16 10:05] VITALS: BP 137/55; BP 158/67; PULSE 66; RESP 16; TEMP 36.9; O2SAT 98
[2022-03-16 10:10] VITALS: BP 137/55; BP 174/73; PULSE 65; RESP 16; O2SAT 97
[2022-03-16 10:15] VITALS: BP 137/55; BP 163/65; PULSE 67; RESP 16; O2SAT 98
[2022-03-16 10:21] VITALS: BP 137/55; BP 162/65; PULSE 67; RESP 16; TEMP 36.4; O2SAT 97
[2022-03-16 10:44] VITALS: BP 137/55
--- NOTE | 2022-03-16 12:12 | PCM.OPRPT ---
Report of Operation Date of Procedure: 03/16/22 Description of Surgical Findings:: PREOPERATIVE DIAGNOSIS: Osteoarthritis of the right hip POSTOPERATIVE DIAGNOSIS: Osteoarthritis of the right hip PROCEDURE PERFORMED: Right hip intraarticular steroid injection under fluoroscopy guidance. ANESTHESIA: MAC. BLOOD LOSS: Minimal. COMPLICATIONS: None. DESCRIPTION OF PROCEDURE: History and physical of today was reviewed. Risks and benefits of the procedure were explained. The patient understood and agreed to proceed. Informed consent was obtained. IV inserted per routine protocol. The patient was taken to the operating room and placed in the supine position. The right hip area was prepped and draped in a sterile fashion using iodine x3. Under fluoroscopy guidance on AP view, the right hip joint was visualized. The skin and subcutaneous tissue was anesthetized with approximately 3 mL of 1% lidocaine using a 25-gauge regular needle approximately 3 cm cephalad to the right greater trochanter. Under direct visualization with fluoroscopy on an AP view, using a 22-gauge 3.5-inch spinal needle, the needle was advanced via the skin using the lateral approach. The tip of the needle was maneuvered and directed towards the superiormost aspect of the hip joint. Once the tip of the needle was at the vicinity of the joint, after negative aspiration for blood and positive aspiration of synovial fluid, a total of 1 mL of contrast was injected to confirm correct placement of the needle as well as halo spread around the hip joint. After repeated negative aspiration for blood and confirmation on AP as well as oblique view, a total of 10 mL of preservative-free 0.25% Marcaine with 80 mg of Depo-Medrol was injected easily. The needle was then removed intact. The patient experienced no sign or symptoms of intrathecal or intravascular injection. The patient experienced no paresthesia. The procedure was completed without any apparent difficulty or any complications. The patient appeared to tolerate it well. ASSESSMENT AND PLAN: This is an 81-year-old female with osteoarthritis of the right hip status post right hip intra-articular steroid injection under fluoroscopic guidance, patient will continue her current medications, patient will follow in approximately 2 weeks for reevaluation.
== END 2022-03-16 11:09 | disposition home or self-care (01) ==
LOC: SDC 08:44 → AC 08:47
PROVIDERS: PCP Internal Medicine; Referring Provider Anesthesiology Pain Medicine; Visit Provider Anesthesiology Pain Medicine
PROC: 3E0U3GC Introduction of Other Therapeutic Substance into Joints, Percutaneous Approach (ICD-10-PCS; CPT 20610; principal; 2022-03-16 09:45)
DX: M16.11 Unilateral primary osteoarthritis, right hip (principal)
CPT/HCPCS: 20610; 01991; 76000; 77002; 82962; J7120

== ENCOUNTER 2022-04-15 09:16 | Inpatient (IN) | payer MEDICARE, SELFPAY ==
[2022-04-15] VITALS (7 sets, daily range): BP systolic 118–188; BP diastolic 45–73; PULSE 60–80; RESP 16–18; TEMP 36.3–36.9; O2SAT 93–97; BMI 19.7; BMI 18.7
--- NOTE | 2022-04-15 10:36 | EKG12_ITS ---
Test Reason : Blood Pressure : / mmHG Vent. Rate : 086 BPM Atrial Rate : 086 BPM P-R Int : 182 ms QRS Dur : 078 ms QT Int : 378 ms P-R-T Axes : 085 089 053 degrees QTc Int : 452 ms Normal sinus rhythm Septal infarct , age undetermined Abnormal ECG Confirmed by LORY JOLLY, NASH ([id number]), news videotape editor CELESTE RODRIGUEZ ([id number]) on 04/17/2022 10:55:04 A M Referred By: Confirmed By:JOSETTE HENLEY MD
--- NOTE | 2022-04-15 10:58 | EDS_ITS ---
HPI History of Present Illness Chief Complaint: Lower Extremity Injury Narrative Narrative: 81-year-old female presenting with right hip pain. This has been an issue since November. She was seen seen by Dr. Kline and Dr. Bhagat outpatient. She has had some issues with her A1c not being under control secondary to steroids and in addition to this Dr. Bhagat has told her that has had low sodiums. Dr. Bhagat has been trying to medically optimize her for surgery with Dr. Kline due to avascular necrosis of the hip. Dr. Kline was unable to set up outpatient surgery. Given the patient's continued pain and inability to ambulate secondary to pain patient was sent to the ER for ev aluation. [facility] Medical History Anxiety Back pain Bilateral carotid bruits Bladder disease Cancer Cardiology follow-up encounter Carotid artery stenosis Carotid stenosis, bilateral Chronic constipation Constipation Depression Diabetes Diabetes mellitus Diabetes mellitus, type II Dietary restriction Dizziness Easy bruising Essential hypertension Heartburn High cholesterol History of CHF (congestive heart failure) History of echocardiogram History of edema History of irregular heartbeat History of pain when walking History of renal disease History of steroid therapy History of stress test Hyperlipidemia Hypothyroidism Injury of head and neck Leg cramps Loss of hearing Osteoporosis Pain Pneumonia Shortness of breath on exertion Syncope Thyroid disease Transaminitis Uses wheelchair Valvular heart disease Wears glasses Wears partial dentures Home Medications Synthroid 88 mcg tablet 88 mcg PO DAILY #90 tab NS 07/16/20 [Rx Last Taken 03/16/22] rosuvastatin 5 mg tablet 5 mg PO DAILY tab 10/21/20 [History Last Taken 03/08/22] cholecalciferol (vitamin D3) 125 mcg (5,000 unit) capsule 125 mcg PO DAILY 10/30/20 [History Last Taken 03/08/22] clopidogrel 75 mg tablet 75 mg PO DAILY tab 10/30/20 [History Last Taken 03/08/22] Januvia 100 mg PO DAILY 09/21/21 [History Last Taken 03/07/22] losartan 100 mg PO DAILY 09/23/21 [History Last Taken 03/08/22] hydralazine 50 mg tablet 50 mg PO TID tab 11/04/21 [History Last Taken 03/16/22] amlodipine 10 mg tablet 10 mg PO QHS 30 Days #30 tab 02/09/22 [Rx Last Taken 03/16/22] acetaminophen [Tylenol] 650 mg PO Q6H PRN PRN #0 tab 03/11/22 [Rx Last Taken Unknown] oxycodone 5 mg PO Q6H PRN PRN 7 Days #15 tab 03/11/22 [Rx Last Taken Unknown] prednisone 40 mg PO BREAKFAST 3 Days #6 tab 03/11/22 [Rx Last Taken Unknown] Allergy/AdvReac Type Severity Reaction Status Date / Time metformin Allergy Severe Rash Verified 04/15/22 09:17 neomycin [Neomycin] Allergy Severe Unknown Verified 04/15/22 09:17 Tetracyclines Allergy Severe Anaphylaxis Verified 04/15/22 09:17 Sulfa (Sulfonamide Allergy Constipatio Verified 04/15/22 09:17 Antibiotics) n Family History Mother Thyroid disorder Father Alzheimer disease Surgical History History of cardiac catheterization History of foot surgery History of left heart catheterization (12/28/14) History of thyroidectomy History of tonsillectomy and adenoidectomy Hx of colonoscopy Social History household members: none Smoking Status: Former smoker how long ago did patient quit smokin years ago alcohol intake: current alcohol intake frequency: a few times a month Alcohol type: wine substance use type: does not use caffeine: Yes Type: coffee Number of servings: 2 ROS ROS ED Constitutional Constitutional ED: Denies chills or fever(s) Eyes Eyes: Denies blurry vision ENT ENT ED: Denies rhinorrhea or sore throat Cardiovascular Cardiovascular: Denies chest pain or palpitations Respiratory/Chest Respiratory/Chest: Denies cough or dyspnea Gastrointestinal Gastrointestinal: Denies abdominal pain, nausea or vomiting Genitourinary Genitourinary ED: Denies dysuria or hematuria Musculoskeletal Musculoskeletal: Reports other Details: Right hip pain Integumentary Denies rash Neurologic Neurologic: Denies headache(s) Psychiatric Psychiatric: Denies anxiety or depression EXAM Physical Exam Const Vital Signs: 04/15/22 09:19 Temperature 98.3 F Temperature Source Oral Pulse Rate 80 Respiratory Rate 16 Blood Pressure 180/73 H Blood Pressure Mean 108 Pulse Ox 97 Oxygen Delivery Method Room Air Positive well nourished General Appearance ED: NAD HEENT normocephalic and atraumatic Resp normal respiratory effort and clear to auscultation bilaterally Cardio regular rate and regular rhythm GI non-tender and non-distended Palpation: soft Extremity Extremity Narrative: Limited range of motion of right hip secondary to pain. There is tenderness palpation located here as well. No obvious deformity. Neuro oriented x3 Sensorium / Orientation: alert Psych mental status grossly normal Skin Lesions: no lesions Rashes: no rashes MDM MDM MDM Narrative Medical decision making narrative: 81-year-old female presenting with right hip pain. I spoke with Dr. Kline on her arrival and he recommended admitting to medicine to medically optimize her and she would go to the OR likely on Wednesday. Patient was given morphine and Zofran. EKG is obtained and on my interpretation this is a normal sinus rhythm with a ventricular rate of 86 bpm without sign of ischemic change or dysrhythmia. Chest x-ray my interpretation shows cardiomegaly without any acute cardiopulmonary process. The radiologist agree. EKG on my interpretation shows a normal sinus rhythm with a ventricular rate of 86 bpm without sign of ischemic change or dysrhythmia. Right hip x-ray shows severe degenerative changes on my interpretation without acute fracture. This is consistent with previous diagnosis of avascular necrosis. Patient was given 2 doses of morphine in the ER for pain control. Discussed with hospitalist for admission. Impression: 1. Avascular necrosis right hip 2. Failure to thrive Lab Data Attestation: I reviewed the patient's lab results. Labs: Laboratory Results - last 24 hr 04/15/22 04/15/22 11:00 11:00 WBC 5.3 RBC 4.47 Hgb 12.9 Hct 39.2 MCV 87.7 MCH 28.9 MCHC 32.9 RDW Std Deviation 45.9 H RDW Coeff of Obed 14.4 Plt Count 261 MPV 9.5 Immature Gran % (Auto) 0.900 Neut % (Auto) 71.6 H Lymph % (Auto) 12.9 L [place] % (Auto) 11.6 H Eos % (Auto) 1.7 Baso % (Auto) 1.3 H Absolute Neuts (auto) 3.8 Absolute Lymphs (auto) 0.68 L Nucleated RBC % 0 Sodium 134 L Potassium 3.9 Chloride 100 Carbon Dioxide 28.0 Anion Gap 6 BUN 18 Creatinine 0.52 L Estim Creat Clear Calc 32.91 Est GFR (MDRD) Af Amer 144 Est GFR (MDRD) Non-Af 119 BUN/Creatinine Ratio 34.4 H Glucose 191 H Calcium 10.0 Total Bilirubin 0.60 AST 35 ALT 42 Alkaline Phosphatase 120 H Total Protein 7.3 Albumin 3.7 Globulin 3.6 Albumin/Globulin Ratio 1.0 Radiography Diagnostic Testing: Clinical Impression(s) from Imaging Studies Hip/Pelvis X-Ray 04/15/22 11:26 IMPRESSION: Marked degree of joint space narrowing of the right hip joint with findings suggesting avascular necrosis of the femoral head. Electronically Signed: Holland Ferreira MD at 12:20 EDT , Chest X-Ray 04/15/22 11:45 IMPRESSION: Moderate cardiomegaly. Marked degree of dextroscoliosis. Electronically Signed: Holland Ferreira MD at 12:21 EDT , Discharge Plan Triage Chief Complaint: Lower Extremity Injury ED Provider: Zafar Lopez Dx/Rx/DC Orders Prescriptions: No Action levothyroxine [Synthroid] 88 mcg tablet 88 mcg PO DAILY Qty: 90 RF: 3 rosuvastatin 5 mg tablet 5 mg PO DAILY RF: 0 clopidogrel 75 mg tablet 75 mg PO DAILY RF: 0 cholecalciferol (vitamin D3) 125 mcg (5,000 unit) capsule 125 mcg PO DAILY RF: 0 hydralazine 50 mg tablet 50 mg PO TID RF: 0 Januvia 100 mg tablet 100 mg PO DAILY RF: 0 losartan 100 mg tablet 100 mg PO DAILY RF: 0 acetaminophen [Tylenol] 325 mg Tablet 650 mg PO Q6H PRN PRN (Reason: Pain Score 1-10/Temp > 100.7 F) Qty: 0 RF: 0 prednisone 20 mg Tablet 40 mg PO BREAKFAST 3 Days Qty: 6 RF: 0 oxycodone 5 mg Tablet 5 mg PO Q6H PRN PRN (Reason: Pain Score 6-10) 7 Days Qty: 15 RF: 0 amlodipine 10 mg tablet 10 mg PO QHS 30 Days Qty: 30 RF: 0 Primary Care Provider: Karla Bhagat
[2022-04-15 11:14] LABS: Absolute Lymphocyte Count 0.68 X10^3/uL (0.83-4.51); Absolute Neutrophil Count 3.8 X10^3/uL (2.0-7.7); Basophil# 0.07 X10^3/uL; Basophil% 1.3 % (0-1); Eosinophil# 0.09 X10^3/uL; Eosinophils% 1.7 % (0-5); Hematocrit 39.2 % (37-47); Hemoglobin 12.9 g/dL (12.0-15.0); Lymphocyte # 0.68 X10^3/ul (0.83-4.51); Lymphocyte % 12.9 % (19-41); Mean Corp Hgb Conc 32.9 g/dL (32-36); Mean Corpuscular Hgb 28.9 pg (27.0-32.0); Mean Corpuscular Volume 87.7 fL (81-99); Mean Platelet Vol. 9.5 fl (6.2-12.0); Monocyte# 0.61 X10^3/uL; Monocyte% 11.6 % (0-10); NRBC Flagged by Analyzer 0 % (0-5); Neutrophil # 3.78 X10^3/uL (2.7-7.7); Neutrophil % 71.6 % (47-70); Platelet Count 261 K/mm3 (150-450); RBC Distribution Width CV 14.4 % (11.6-14.6); RBC Distribution Width SD 45.9 fl (35.1-43.9); Red Blood Count 4.47 M/mm3 (4.2-5.4); White Blood Count 5.3 K/mm3 (4.4-11.0)
--- NOTE | 2022-04-15 11:26 | RAD_ITS ---
STUDY: X-RAY - PELVIS AND RIGHT HIP REASON FOR EXAM: Female, 81 years old. Right hip pain. No known injury. TECHNIQUE: 3 views of the pelvis and hip. COMPARISON: None. FINDINGS: Large amount of fecal material is seen in the colon. Calcified fibroid. Normal bilateral iliac wings, sacroiliac joints and visualized sacrum. Normal bilateral superior and inferior pubic rami. Normal pubic symphysis. Normal bilateral ischial tuberosities. Deformity of the right femoral head most likely secondary to avascular necrosis. Normal acetabulum. There is severe articular joint space narrowing of the hip. RAD/HIP, UNI W/ Pelvis 2-3 Views IMPRESSION: Marked degree of joint space narrowing of the right hip joint with findings suggesting avascular necrosis of the femoral head. Electronically Signed: Holland Ferreira MD at 12:20 EDT ,
[2022-04-15 11:29] LABS: AST(SGOT) 35 U/L (15-37); Alanine Aminotransfer ALT/SGPT 42 U/L (13-56); Albumin, Serum 3.7 g/dL (3.2-5.0); Alkaline Phosphatase 120 U/L (45-117); Anion Gap 6 (5-15); BUN 18 mg/dL (7-18); BUN/Creat Ratio 34.4 RATIO (10-20); Chloride 100 mmol/L (98-107); Creatinine, Serum 0.52 mg/dL (0.55-1.02); EST Glomerular Filtration Rate 119 mL/min (>60); Est Glom Filt Rate - Afr Amer 144 mL/min (>60); Estimated Creatinine Clearance 32.91 ml/min; Globulin 3.6 g/dL (2.2-4.2); Glucose 191 mg/dL (74-106); Potassium 3.9 mmol/L (3.5-5.1); Protein, Total 7.3 g/dL (6.4-8.2); Sodium Level 134 mmol/L (136-145)
--- NOTE | 2022-04-15 11:45 | RAD_ITS ---
STUDY: X-RAY CHEST REASON FOR EXAM: Female, 81 years old. PREOP TECHNIQUE: Single AP portable view of the chest. COMPARISON: Comparison is made with prior study dated 09/20/2021. FINDINGS: There is hyperinflation of the lungs consistent with chronic obstructive lung disease (COPD). There is no demonstrated pleural abnormality. There is moderate cardiac enlargement. Normal mediastinum and dave. Normal visualized pulmonary arteries. There is atherosclerotic calcification of the aortic arch with tortuosity. There are diffuse degenerative changes of the visualized thoracic spine. Dextroscoliosis. Normal visualized ribs, clavicles, and shoulders. There is no demonstrated abnormality of the visualized soft tissue structures of the upper abdomen. RAD/Chest 1 View (Portable) IMPRESSION: Moderate cardiomegaly. Marked degree of dextroscoliosis. Electronically Signed: Holland Ferreira MD at 12:21 EDT ,
[2022-04-15] MEDS: Morphine 4 MG/ML Syringe IV (12:22)
[2022-04-15 13:15] LABS: Magnesium 2.2 mg/dL (1.6-2.6)
--- NOTE | 2022-04-15 13:26 | PCM.HP.STD ---
[facility] - General General Date of Admission: 04/15/22 Date of Service: 04/15/22 Chief Complaint: Right hip pain, avascular necrosis [facility] Narrative ELLEN REDMAN, is a 81 F history of severe osteoporosis, right hip avascular necrosis, severe right hip pain worse since November 2020. Prior to that she was able to move on cane and walker. She cannot flex or extend her right hip. She also has severe scoliosis. She follows Dr. Kline and Dr. Bhagat as an outpatient. There has been issues controlling her blood sugar, serum sodium as preoperative optimization for surgery. Due to high risk of perioperative management, patient was sent to ED for admission. Orthopedic surgeon Dr. Kline is consulted from ER and plan for OR on Wednesday. Complain of right hip pain mainly on movement, 10/10 in intensity. She lays on her left side difficulty in turning around. She denies chest pain, shortness of breath but difficult to evaluate her exercise capacity since she has been mostly bedridden/laying since November 2021. She is able to climb few steps with the help of walker. Denied any chest pain, shortness of breath on exertion when she was moving around. She follows Dr. Tena as an outpatient for hypertension, dyslipidemia, valvular heart disease and chronic HFpEF. Denies coronary artery disease/PCI or stenting. She also has right carotid artery stenosis follows Dr. Matthews. CTA of neck of 11/17/2020 showed more than 70% stenosis of right ICA. She was on Plavix she is allergic to aspirin which has been discontinued. She was last admitted in February 2022 for intractable right hip pain secondary to avascular necrosis. She also history of diabetes mellitus type 2 and uses insulin at home She had work-up as an outpatient for hyponatremia including, serum sodium 130, urine sodium 25 and osmolality 277 on April 13, 2020. Glucose was elevated 261 March 2022. [facility], [facility] Medical History Anxiety Back pain Bilateral carotid bruits Bladder disease Cancer Cardiology follow-up encounter Carotid artery stenosis Carotid stenosis, bilateral Chronic constipation Constipation Depression Diabetes Diabetes mellitus Diabetes mellitus, type II Dietary restriction Dizziness Easy bruising Essential hypertension Heartburn High cholesterol History of CHF (congestive heart failure) History of echocardiogram History of edema History of irregular heartbeat History of pain when walking History of renal disease History of steroid therapy History of stress test Hyperlipidemia Hypothyroidism Injury of head and neck Leg cramps Loss of hearing Osteoporosis Pain Pneumonia Shortness of breath on exertion Syncope Thyroid disease Transaminitis Uses wheelchair Valvular heart disease Wears glasses Wears partial dentures Home Medications Synthroid 88 mcg tablet 88 mcg PO DAILY #90 tab NS 07/16/20 [Rx Last Taken 03/16/22] rosuvastatin 5 mg tablet 5 mg PO DAILY tab 10/21/20 [History Last Taken 03/08/22] cholecalciferol (vitamin D3) 125 mcg (5,000 unit) capsule 125 mcg PO DAILY 10/30/20 [History Last Taken 03/08/22] Januvia 100 mg PO DAILY 09/21/21 [History Last Taken 03/07/22] losartan 100 mg PO DAILY 09/23/21 [History Last Taken 03/08/22] hydralazine 50 mg tablet 50 mg PO TID tab 11/04/21 [History Last Taken 03/16/22] amlodipine 10 mg tablet 10 mg PO QHS 30 Days #30 tab 02/09/22 [Rx Last Taken 03/16/22] acetaminophen 1,000 mg PO Q6H PRN 04/15/22 [History Last Taken Unknown] ferrous sulfate [iron] 325 mg PO BID 04/15/22 [History Last Taken Unknown] folic acid 1 mg PO DAILY 04/15/22 [History Last Taken Unknown] insulin glargine [Lantus Solostar U-100 Insulin] 6 unit SUBCUT BREAKFAST 04/15/22 [History Last Taken Unknown] insulin lispro [Humalog KwikPen Insulin] 3 - 4 sliding scale dose SUBCUT 04/15/22 [History Last Taken Unknown] lactulose 15 ml PO DAILY PRN 04/15/22 [History Last Taken Unknown] mirabegron [Myrbetriq] mg PO 04/15/22 [History Last Taken Unknown] oxycodone 10 mg PO Q6H PRN PRN 04/15/22 [History Last Taken Unknown] Allergy/AdvReac Type Severity Reaction Status Date / Time metformin Allergy Severe Rash Verified 04/15/22 09:17 neomycin [Neomycin] Allergy Severe Unknown Verified 04/15/22 09:17 Tetracyclines Allergy Severe Anaphylaxis Verified 04/15/22 09:17 Sulfa (Sulfonamide Allergy Constipatio Verified 04/15/22 09:17 Antibiotics) n Family History Mother Thyroid disorder Father Alzheimer disease Surgical History History of cardiac catheterization History of foot surgery History of left heart catheterization (12/28/14) History of thyroidectomy History of tonsillectomy and adenoidectomy Hx of colonoscopy Social History household members: none Smoking Status: Former smoker how long ago did patient quit smokin years ago alcohol intake: current alcohol intake frequency: a few times a month Alcohol type: wine substance use type: does not use caffeine: Yes Type: coffee Number of servings: 2 ROS ROS Narrative Constitutional: Reports fatigue and weakness. Severe malnutrition. HEENT: Reports systems reviewed and no addt'l complaints, except as documented Respiratory/Chest: Denies chest pain, shortness of breath at rest Gastrointestinal: Denies coffee ground emesis, hematemesis or vomiting Genitourinary: Denies burning urination or new urinary tract symptoms Musculoskeletal/spine: Severe osteoporosis of the spine and hip and pelvis. Right hip avascular necrosis, severe limitation of movement. Severe back pain reports joint pain and limited range of motion Neurologic: Denies seizure-like activity skin: No ulcer. No rash Endocrinology: Hyperglycemia, diabetes mellitus type 2 reports systems reviewed and no addt'l complaints, except as documented Hematologic/Lymphatic: Reports systems reviewed and no addt'l complaints, except as documented Rest 14 ROS are negative except as mentioned in HPI Vital Signs Vital Signs Vital Signs: 04/15/22 09:19 04/15/22 12:38 Temperature 98.3 F 98.3 F Temperature Source Oral Oral Pulse Rate 80 66 Respiratory Rate 16 18 Blood Pressure 180/73 H 188/59 H Blood Pressure Mean 108 102 Pulse Ox 97 97 Oxygen Delivery Method Room Air Room Air Weight Weight: 107 lb 12.897 oz Body Mass Index (BMI) 19.7 Physical Exam Narrative General: Alert, Oriented x3, Cooperative HEENT: Atraumatic, PERRLA, EOMI, Normocephalic Oral: Oral mucosa dry. No Gingival or Mucosal Lesions/ Ulcerations Neck: Supple, No JVD, Negative Carotid Bruits Lungs: Air entry diminished in bilateral lung bases. No crepitation/rhonchi Cardiovascular: Regular rate, Regular Rhythm, Normal S1, Normal S2, systolic murmur over LLSB and cardiac apex Abdomen: Bowel Sounds Present, Soft, Non Tender, Non-Distended : No renal angle tenderness. No suprapubic tenderness. Extremities: No edema, Capillary Refill Less than 3 Seconds Skin: No rashes, No breakdown Musculoskeletal: No Tenderness to Palpation of Joints or Extremities Neurological: Cranial nerves II-XII grossly intact, DTR 2+/4 and Symmetrical, Neuro grossly intact Psych/Mental Status: Flat affect. Results Lab / Micro Data Result Diagrams: 04/15/22 11:00 04/15/22 11:00 Labs: Laboratory Results - last 24 hr 04/15/22 11:00: WBC 5.3, RBC 4.47, Hgb 12.9, Hct 39.2, MCV 87.7, MCH 28.9, MCHC 32.9, RDW Std Deviation 45.9 H, RDW Coeff of Obed 14.4, Plt Count 261, MPV 9.5, Immature Gran % (Auto) 0.900, Neut % (Auto) 71.6 H, Lymph % (Auto) 12.9 L, [place] % (Auto) 11.6 H, Eos % (Auto) 1.7, Baso % (Auto) 1.3 H, Absolute Neuts (auto) 3.8, Absolute Lymphs (auto) 0.68 L, Nucleated RBC % 0 04/15/22 11:00: Sodium 134 L, Potassium 3.9, Chloride 100, Carbon Dioxide 28.0, Anion Gap 6, BUN 18, Creatinine 0.52 L, Estim Creat Clear Calc 32.91, Est GFR (MDRD) Af Amer 144, Est GFR (MDRD) Non-Af 119, BUN/Creatinine Ratio 34.4 H, Glucose 191 H, Calcium 10.0, Total Bilirubin 0.60, AST 35, ALT 42, Alkaline Phosphatase 120 H, Total Protein 7.3, Albumin 3.7, Globulin 3.6, Albumin/Globulin Ratio 1.0 04/15/22 11:00: Magnesium 2.2 Micro: Microbiology 04/15/22 11:00 Nasal Secretion SARS-CoV-2 Antigen (Rapid) - Final Radiology Impression Hip/Pelvis X-Ray 04/15/22 11:26 IMPRESSION: Marked degree of joint space narrowing of the right hip joint with findings suggesting avascular necrosis of the femoral head. Chest X-Ray 04/15/22 11:45 IMPRESSION: Moderate cardiomegaly. Marked degree of dextroscoliosis. Assessment & Plan Assessment/Plan (1) Avascular necrosis of bone of hip: PLAN: 80-year-old full is being admitted for perioperative optimization for surgery for right hip avascular necrosis 1. Right hip avascular necrosis with severe osteoporosis, marked right dextroscoliosis, degenerative cervical thoracic and lumbar spine: Patient is being admitted on [facility]. QIP surgical risk calculated. It is above average for serious complication, any complication, cardiac complication, pneumonia, SSI, UTI, venous thromboembolism and renal failure. Patient is also high risk for readmission, sepsis, and discharged to SNF. I think patient did not ambulate therefore difficult to calculate exercise capacity but seems less than 4 mets. Incentive spirometry ordered. Heparin subcu for VT prophylaxis ordered. High surgical risk explained to the patient and her friend near the bedside. This was also discussed with lens grinding machine operator Dr. Raymond advised to continue her home cardiac medications. Twelve-lead EKG normal sinus rhythm 86 bpm, QTC 452 ms. QRS 78 ms. Chest x-ray shows moderate cardiomegaly with marked degree of dextroscoliosis. 2. Cardiovascular disease: Valvular heart disease, bilateral carotid artery stenosis, hypertension, dyslipidemia, chronic diastolic heart failure: Last echo 08/18/2020 EF 65% LA severely enlarged, RA moderately enlarged. Mild MR, 1-2+ TR, mild CT. Also reported small mobile echodensity on aortic side of aortic valve compatible with a small limbal's excrescence. Patient last heart cath in November 2014 reported angiographically normal coronary artery disease. Stress treadmill echo was also normal and negative for ischemia by ECG and echocardiogram but reported very poor exercise capacity for age and test was terminated due to severe dyspnea and fatigue. Fasting profile tomorrow a.m. Patient denies any chest pain pressure tightness or shortness of breath recently and before during exertion. Blood pressure is elevated in ED. Heart rate 66 Patient was admitted in August 2021 for acute hypoxic respiratory failure secondary to bilateral community-acquired pneumonia and acute on chronic diastolic heart failure exacerbation. Last carotid duplex in August 2020 shows more than 70% irregular calcific plaque proximal right ICA, more than 50% right ECA. 50 to 69% proximal left ICA more than 50% left ECA. Patient saw Dr. Rich for carotid restenosis and was on Plavix before but discontinued probably as preop preparation. 3. Severe protein calorie malnutrition-BMI 18.7 but patient is severely malnourished with loss of subcutaneous fat and atrophy of muscles of extremities. 4. Type 2 diabetes mellitus-patient on insulin glargine and lispro at home along with Januvia. Hold Januvia. Accu-Chek H&H's coverage with Humalog sliding scale. Continue home dose of Lantus insulin 5. Hypothyroidism-continue Synthroid regimen. TSH tomorrow a.m. 6. CKD stage IIIb: Estimated creatinine clearance 32 mL/min although creatinine 0.52. Creatinine low because of low muscle mass. 7. Hypotonic hypovolemic hyponatremia: There is suspicion of SIADH as an outpatient. TSH and serum cortisol ordered for tomorrow a.m. Sodium is 134. The patient outpatient labs showed serum sodium 130, urine sodium 25 and osmolality 277 on April 13, 2020. Glucose was elevated 261 March 2022. Monitor sodium. I think serum sodium is not bad as perioperative requirement. DVT prophylaxis- Heparin sc 5000 subcutaneous twice daily Total time of the visit including total time spent in counseling or coordination of care, (more than 50% of the total time, spent in obtaining medical information from nurses and other ancillary care providers,explaining to the patient about labs, imaging, diagnosis and management), discussion with the lens grinding machine operator, review of previous medical record, admission and cardiology visit, review of labs and imaging is 45 minutes. Living will/advanced directive/end of life care: Patient does have living will or advanced directive. His son Mr. Mckinley Redman is next of kin and power of district attorney for health. After discussion of benefits/risks procedures involved with full code, DNR CC arrest and DNR CC, the patient opted for DNRCC arrest with no intubation Patient does want artificial life support including intubation, tube feed, ventilator and/chest compression, central venous catheter, vasopressor and DC shock if needed Total time spent in [id number] encounter in discussion of advanced directive 16 minutes. Charges/Coding Visit Charges Inpatient E&M: 18511 Init Hosp L3 Procedures Hospitalists Procedures: 08647 Advncd Care Plan 30 Min
--- NOTE | 2022-04-15 14:35 | ECHOD_ITS ---
Reason For Study: Valve Disease Procedure This was a 2D Doppler, Color Flow transthoracic echocardiogram. Patient unable to lay in proper positioning due to hip pain. Exam performed portable in patient room. Left Ventricle Normal LV size. Left ventricular systolic function is normal. The estimated ejection fraction is 70 %. Transmitral diastolic flow velocities suggest moderate (stage 2) diastolic dysfunction (pseudonormal pattern). No regional wall motion abnormalities noted. Right Ventricle Normal RV size. Normal systolic function. Atria The left atrium is severely enlarged. The right atrium is severely enlarged. No doppler evidence for ASD. Mitral Valve There is moderate mitral annular calcification. Extension of the mitral annular calcification onto the base of the posterior mitral valve leaflet. Anterior leaflet diffuse mitral valve thickening. Mild (1+) mitral valve insufficiency. Tricuspid Valve Normal tricuspid valve. Mild tricuspid valve insufficiency. Right ventricular systolic pressure estimated to be 37 mmHg. Aortic Valve Trisinus/trileaflet aortic valve. Mild diffuse aortic valve thickening. Mild focal aortic valve calcification. 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 Pulmonic Valve The pulmonic valve is not well visualized. Trivial pulmonic valve insufficiency. Great Vessels The aortic root is not well visualized. Pericardium/Pleural Trivial pericardial effusion. There are no echocardiographic indications of cardiac tamponade. MMode/2D Measurements & Calculations LVIDd: 3.7 cm IVSd: 1.2 cm LA dimension: 4.0 cm LVIDs: 2.0 cm LVPWd: 1.4 cm RVDd: 3.2 cm FS: 45.5 % LAV(MOD-bp): 76.2 ml LA A4 area: 23.5 cm2 RA A4 area: 21.7 cm2 LAV(MOD-bp) Indexed: 53.5 ml/m2 LAV(MOD-sp2): 78.3 ml LAV(MOD-sp4): 75.2 ml Time Measurements MV dec time: 0.25 sec Doppler Measurements & Calculations MV E max juancarlos: 157.9 cm/sec Lat Peak E' Juancarlos: 7.0 cm/sec Med Peak E' Juancarlos: 5.9 cm/sec MV A max juancarlos: 72.5 cm/sec E/E' lat: 22.4 E/E' med: 26.9 MV E/A: 2.2 MV V2 max: 178.5 cm/sec MV P1/2t max juancarlos: 179.8 cm/sec Ao V2 max: 168.2 cm/sec MV max P.7 mmHg MV P1/2t: 82.4 msec Ao max P.3 mmHg MV V2 mean: 77.6 cm/sec MV dec slope: 639.2 cm/sec2 MV mean P.1 mmHg MVA(P1/2t): 2.7 cm2 MV V2 VTI: 47.7 cm LV V1 max: 106.8 cm/sec PA V2 max: 99.2 cm/sec TR max juancarlos: 291.8 cm/sec LV V1 max P.6 mmHg TR max P.1 mmHg ECHO/Echo Complete Interpretation Summary Left ventricular systolic function is normal. The estimated ejection fraction is 70 %. The left atrium is severely enlarged. The right atrium is severely enlarged. There is moderate mitral annular calcification. Extension of the mitral annular calcification onto the base of the posterior mi tral valve leaflet. Anterior leaflet diffuse mitral valve thickening. Mild (1+) mitral valve insufficiency. Mild tricuspid valve insufficiency. Mild diffuse aortic valve thickening. Mild focal aortic valve calcification. 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 Trivial pulmonic valve insufficiency. Trivial pericardial effusion. There are no echocardiographic indications of cardiac tamponade. Right ventricular systolic pressure estimated to be 37 mmHg. Transmitral diastolic flow velocities suggest diastolic dysfunction (pseudonorm al pattern). Ordering Physician: Chalino Mckay Referring Physician: Karla Bhagat M.D. Performed By: Ulysses Sifuentes RCS
[2022-04-15 15:47] LABS: Urine Chloride 91 mmol/L (Not Establ.); Urine Sodium 100 mmol/L (Not Establ.)
--- NOTE | 2022-04-15 15:47 | CON.PCM_ITS ---
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 She also has some degenerative disc disease and lower lumbar pain which may present with some overlapping symptoms. Patient understands that the symptoms would not be resolve the total hip replacement. Natural history of her disease process and treatment options were discussed. At this point patient has failed numerous conservative measures and is seen significant functional decline. Additionally her albumin level has improved to above 3.5 but her electrolytes have seen some imbalance. She is requiring significant narcotic pain medications on a regular basis and is seeing again considerable functional decline. Based on this we have elected to discuss total replacement. Patient understands she has some unique risk factors and that she has numerous medical comorbidities which put her risk for infection including diabetes mellitus, heart disease, malnutrition. Additionally patient has medical comorbidities that pose a risk for complications with anesthesia. In addition to this patient has had a recent corticosteroid injection within the last 90 days which increases her risk of infection with surgery. Additionally the standard risks of total replacement were discussed with the patient including but onto blood loss, DVTs, PEs, nervous damage, infection, the risk of anesthesia, dislocations, fractures, leg length discrepancies including loss of life. Patient demonstrates an understanding based on her current condition, I believe at this time the risks of foregoing surgery likely outweigh the benefits of continued optimization. In fact patient has shown some decline and optimization due to our current delay. After thorough discussion of risks and benefits with the patient's family at the bedside we will agree that while she has elevated risks now is an appropriate time to proceed with surgical intervention. Patient denies any active sores wound Patient denies any previous history of VTE Patient denies any history of anesthesia complications Patient reports stated allergies are correct. Remaining diagnoses are accompanying with the assessment as they relate to patient's medical frailty. (3) Acute diastolic congestive heart failure: (4) Hypothyroidism: (5) Hypertension: (6) Vitamin D deficiency: (7) Diabetes mellitus: (8) Coronary artery disease: HPI Consult Data Date of Consult: 04/15/22 HPI Narrative Reason for Consultation: Right hip pain HPI Narrative: ELLEN ESTRADA, is a 81 F with history of multiple medical comorbidities who presents with right hip pain. Patient has been experiencing right hip pain since November of this year. Initial x-rays in November showed some mild joint space narrowing with marginal osteophyte formation and osteopenic bone. Patient continued to have pain. She was eventually admitted to the hospital in February where a CT scan and MRI were obtained confirming avascular necrosis. Subsequently she was referred to pain management where she received a intra-articular right hip corticosteroid injection. Shortly thereafter she presented to my office with progressive collapse of her femoral head. Based on the proximity of her corticosteroid injection we recommended optimizing the patient and attempting to delay surgery in order to mitigate the risk of infections postoperatively around the time of surgical intervention. Based on her avascular necrosis with collapsed femoral head total replacement was recommended to the patient. Patient was initially noted to have poor nutritional markers and started on protein shakes and dietary counseling. However, patient's primary care physician called me this morning stating patient is in continued functional decline. Her electrolytes are being affected by the narcotic pain medications. She is unable to maintain her activities of daily living and self independence at home. She was concerned patient was going to need further specialty care. In addition patient is taking narcotics regularly and would be unable to be weaned from narcotics until after surgery. Based on these parameters of continued functional decline and her radiographic evidence of femoral head collapse with severe pain and dysfunction she was directed towards hospital for medical optimization. At this time she would also like to proceed with surgical intervention. Currently patient son accompanies her at the bedside and notes she has having increasing difficulty getting around her home. She is requiring 24-hour assistance at this time. Her pain is 10 out of 10 located in the groin and anterior thigh. She also has posterior thigh buttocks and back pain. [facility] Medical History Anxiety Back pain Bilateral carotid bruits Bladder disease Cancer Cardiology follow-up encounter Carotid artery stenosis Carotid stenosis, bilateral Chronic constipation Constipation Depression Diabetes Diabetes mellitus Diabetes mellitus, type II Dietary restriction Dizziness Easy bruising Essential hypertension Heartburn High cholesterol History of CHF (congestive heart failure) History of echocardiogram History of edema History of irregular heartbeat History of pain when walking History of renal disease History of steroid therapy History of stress test Hyperlipidemia Hypothyroidism Injury of head and neck Leg cramps Loss of hearing Osteoporosis Pain Pneumonia Shortness of breath on exertion Syncope Thyroid disease Transaminitis Uses wheelchair Valvular heart disease Wears glasses Wears partial dentures Home Medications Synthroid 88 mcg tablet 88 mcg PO DAILY #90 tab NS 07/16/20 [Rx Last Taken 03/16/22] rosuvastatin 5 mg tablet 5 mg PO DAILY tab 10/21/20 [History Last Taken 03/08/22] cholecalciferol (vitamin D3) 125 mcg (5,000 unit) capsule 125 mcg PO DAILY 10/30/20 [History Last Taken 03/08/22] Januvia 100 mg PO DAILY 09/21/21 [History Last Taken 03/07/22] losartan 100 mg PO DAILY 09/23/21 [History Last Taken 03/08/22] hydralazine 50 mg tablet 50 mg PO TID tab 11/04/21 [History Last Taken 03/16/22] amlodipine 10 mg tablet 10 mg PO QHS 30 Days #30 tab 02/09/22 [Rx Last Taken 03/16/22] acetaminophen 1,000 mg PO Q6H PRN 04/15/22 [History Last Taken Unknown] ferrous sulfate [iron] 325 mg PO BID 04/15/22 [History Last Taken 04/14/22 17:0 0] folic acid 1 mg PO DAILY 04/15/22 [History Last Taken Unknown] insulin glargine [Lantus Solostar U-100 Insulin] 6 unit SUBCUT BREAKFAST 04/15/22 [History Last Taken Unknown] insulin lispro [Humalog KwikPen Insulin] 3 - 4 sliding scale dose SUBCUT 04/15/22 [History Last Taken Unknown] lactulose 15 ml PO DAILY PRN 04/15/22 [History Last Taken Unknown] mirabegron [Myrbetriq] 25 mg PO DAILY 04/15/22 [History Last Taken Unknown] oxycodone 10 mg PO Q6H PRN PRN 04/15/22 [History Last Taken Unknown] Allergy/AdvReac Type Severity Reaction Status Date / Time metformin Allergy Severe Rash Verified 04/15/22 09:17 neomycin [Neomycin] Allergy Severe Unknown Verified 04/15/22 09:17 Tetracyclines Allergy Severe Anaphylaxis Verified 04/15/22 09:17 Sulfa (Sulfonamide Allergy Constipatio Verified 04/15/22 09:17 Antibiotics) n Family History Mother Thyroid disorder Father Alzheimer disease Surgical History History of cardiac catheterization History of foot surgery History of left heart catheterization (12/28/14) History of thyroidectomy History of tonsillectomy and adenoidectomy Hx of colonoscopy Social History household members: none Smoking Status: Former smoker how long ago did patient quit smokin years ago alcohol intake: current alcohol intake frequency: a few times a month Alcohol type: wine substance use type: does not use caffeine: Yes Type: coffee Number of servings: 2 ROS Constitutional Constitutional: Reports systems reviewed and no addt'l complaints, except as documented Eyes Eyes: Reports systems reviewed and no addt'l complaints, except as documented ENT HEENT: Reports systems reviewed and no addt'l complaints, except as documented Cardiovascular Cardiovascular: Reports systems reviewed and no addt'l complaints, except as documented Respiratory/Chest Respiratory/Chest: Reports systems reviewed and no addt'l complaints, except as documented Gastrointestinal Gastrointestinal: Reports systems reviewed and no addt'l complaints, except as documented Genitourinary Genitourinary: Reports systems reviewed and no addt'l complaints, except as documented Musculoskeletal Musculoskeletal: Reports systems reviewed and no addt'l complaints, except as documented Integumentary Integumentary: Reports systems reviewed and no addt'l complaints, except as documented Neurologic Neurologic: Reports systems reviewed and no addt'l complaints, except as documented Psychiatric Psychiatric: Reports systems reviewed and no addt'l complaints, except as documented Endocrine Endocrinology: Reports systems reviewed and no addt'l complaints, except as documented Hematologic/Lymphatic Hematologic/Lymphatic: Reports systems reviewed and no addt'l complaints, except as documented Allergic/Immunologic Allergic/Immunologic: Reports systems reviewed and no addt'l complaints, except as documented Physical Exam Const alert, oriented x3 and no apparent distress General Appearance: cooperative, comfortable and well kempt HEENT normocephalic Eyes PERRL Neck No nuchal rigidity Resp normal respiratory effort Cardio no JVD Extremity Extremity Narrative: Right lower extremity: Neurovascular intact distally. Pain with internal/external rotation of the hip. Slightly shorter on the right than the left. Skin is intact. Skin no wounds Psych mental status grossly normal and affect normal Lab / Micro Data Result Diagrams: 04/15/22 11:00 04/15/22 11:00 Labs: Laboratory Results - last 24 hr 04/15/22 11:00: WBC 5.3, RBC 4.47, Hgb 12.9, Hct 39.2, MCV 87.7, MCH 28.9, MCHC 32.9, RDW Std Deviation 45.9 H, RDW Coeff of Obed 14.4, Plt Count 261, MPV 9.5, Immature Gran % (Auto) 0.900, Neut % (Auto) 71.6 H, Lymph % (Auto) 12.9 L, Dorado % (Auto) 11.6 H, Eos % (Auto) 1.7, Baso % (Auto) 1.3 H, Absolute Neuts (auto) 3.8, Absolute Lymphs (auto) 0.68 L, Nucleated RBC % 0 04/15/22 11:00: Sodium 134 L, Potassium 3.9, Chloride 100, Carbon Dioxide 28.0, Anion Gap 6, BUN 18, Creatinine 0.52 L, Estim Creat Clear Calc 32.91, Est GFR (MDRD) Af Amer 144, Est GFR (MDRD) Non-Af 119, BUN/Creatinine Ratio 34.4 H, Glucose 191 H, Calcium 10.0, Total Bilirubin 0.60, AST 35, ALT 42, Alkaline Phosphatase 120 H, Total Protein 7.3, Albumin 3.7, Globulin 3.6, Albumin/Globulin Ratio 1.0 04/15/22 11:00: Magnesium 2.2 04/15/22 11:00: Vitamin D 25-Hydroxy 50.0 Micro: Microbiology 04/15/22 11:00 Nasal Secretion SARS-CoV-2 Antigen (Rapid) - Final Radiology Impression Hip/Pelvis X-Ray 04/15/22 11:26 IMPRESSION: Marked degree of joint space narrowing of the right hip joint with findings suggesting avascular necrosis of the femoral head. Electronically Signed: Holland Ferreira MD at 12:20 EDT , Chest X-Ray 04/15/22 11:45 IMPRESSION: Moderate cardiomegaly. Marked degree of dextroscoliosis. Electronically Signed: Holland Ferreira MD at 12:21 EDT ,
[2022-04-15 16:14] LABS: Creatinine, Urine (random) < 13.00 mg/dL (NO RANGE EST.); Protein, Urine (Random) 8.2 mg/dL (<11.9)
[2022-04-15 16:17] LABS: Osmolality, Urine 283 mOsm/KG
[2022-04-15] MEDS: Losartan Potassium 100 MG Tablet PO (16:58)
[2022-04-15] MEDS: amLODIPine 10 MG Tablet PO (16:59)
[2022-04-15] MEDS: 0.9% Saline Lock 10 ML Syringe IV ×2 (16:59→23:44)
[2022-04-15] MEDS: HYDROmorphone 0.5 MG/0.5 ML SYRINGE IV ×2 (16:59→23:44)
[2022-04-15] MEDS: Insulin Lispro 100 UNIT/ML INSULN.PEN SC (17:12)
[2022-04-15] MEDS: Insulin Glargine-YFGN 100 UNIT/ML Pen 6 UNIT SC (17:56)
[2022-04-15] MEDS: oxyCODONE 5 MG Tablet 10 MG PO (20:06)
[2022-04-15] MEDS: Atorvastatin Calcium 10 MG Tablet PO (22:53)
[2022-04-15] MEDS: Senna/Docusate Sodium 1 Tablet 2 TABLET PO (22:53)
[2022-04-15] MEDS: hydrALAZINE 50 MG Tablet PO (22:53)
[2022-04-15] MEDS: Heparin Injection (Vial) 5,000 UNIT/ML VIAL 5000 UNIT SC (22:57)
[2022-04-16] VITALS (9 sets, daily range): BP systolic 126–148; BP diastolic 43–56; PULSE 65–78; RESP 16–18; TEMP 36.4–36.8; O2SAT 92–98
[2022-04-16] MEDS: HYDROmorphone 0.5 MG/0.5 ML SYRINGE IV ×4 (03:52→21:47)
[2022-04-16] MEDS: 0.9% Saline Lock 10 ML Syringe IV ×3 (03:52→16:38)
[2022-04-16] MEDS: oxyCODONE 5 MG Tablet 10 MG PO ×3 (06:20→20:26)
[2022-04-16] MEDS: hydrALAZINE 50 MG Tablet PO ×3 (06:22→21:30)
[2022-04-16 06:24] LABS: Absolute Lymphocyte Count 1.11 X10^3/uL (0.83-4.51); Absolute Neutrophil Count 2.8 X10^3/uL (2.0-7.7); Basophil# 0.05 X10^3/uL; Eosinophil# 0.14 X10^3/uL; Eosinophils% 2.9 % (0-5); Hematocrit 34.4 % (37-47); Hemoglobin 11.2 g/dL (12.0-15.0); Lymphocyte # 1.11 X10^3/ul (0.83-4.51); Lymphocyte % 22.9 % (19-41); Mean Corp Hgb Conc 32.6 g/dL (32-36); Mean Corpuscular Volume 89.1 fL (81-99); Mean Platelet Vol. 9.5 fl (6.2-12.0); Monocyte# 0.75 X10^3/uL; Monocyte% 15.5 % (0-10); NRBC Flagged by Analyzer 0 % (0-5); Neutrophil # 2.75 X10^3/uL (2.7-7.7); Neutrophil % 56.7 % (47-70); Platelet Count 239 K/mm3 (150-450); RBC Distribution Width CV 14.5 % (11.6-14.6); RBC Distribution Width SD 47.2 fl (35.1-43.9); Red Blood Count 3.86 M/mm3 (4.2-5.4); White Blood Count 4.9 K/mm3 (4.4-11.0)
[2022-04-16] MEDS: Levothyroxine 88 MCG Tablet PO (06:24)
[2022-04-16 06:55] LABS: Anion Gap 5 (5-15); BUN 24 mg/dL (7-18); BUN/Creat Ratio 43.6 RATIO (10-20); Calcium,Total 8.9 mg/dL (8.5-10.1); Chloride 100 mmol/L (98-107); Creatinine, Serum 0.55 mg/dL (0.55-1.02); EST Glomerular Filtration Rate 112 mL/min (>60); Est Glom Filt Rate - Afr Amer 136 mL/min (>60); Estimated Creatinine Clearance 31.96 ml/min; Glucose 157 mg/dL (74-106); Potassium 3.9 mmol/L (3.5-5.1); Sodium Level 132 mmol/L (136-145); Thyroid Stim Hormone (TSH) 2.75 uIU/mL (0.358-3.74)
[2022-04-16 08:33] LABS: Osmolality, Serum 282 mOsm/KG (280-301)
[2022-04-16] MEDS: Psyllium 1 PACKET PO (08:51)
[2022-04-16] MEDS: Ferrous Sulfate 325 MG Tablet PO (08:52)
[2022-04-16] MEDS: Folic Acid 1 MG Tablet PO (08:52)
[2022-04-16] MEDS: Mirabegron 25 MG TAB.ER.24H PO (08:52)
[2022-04-16] MEDS: Senna/Docusate Sodium 1 Tablet 2 TABLET PO ×2 (08:52→21:29)
[2022-04-16] MEDS: Losartan Potassium 100 MG Tablet PO (08:53)
[2022-04-16] MEDS: Cholecalciferol (Vit D3) 125 MCG CAPSULE (5,000 UNITS) PO (08:53)
[2022-04-16] MEDS: Insulin Glargine-YFGN 100 UNIT/ML Pen 6 UNIT SC (08:58)
[2022-04-16] MEDS: Heparin Injection (Vial) 5,000 UNIT/ML VIAL 5000 UNIT SC ×2 (08:58→21:38)
--- NOTE | 2022-04-16 09:47 | CASEMGMT ---
Per Betty in TCU, pt's family member called into TCU requesting pt go there at discharge. Per Betty, pt is on TCU list. Pt scheduled for OR 04/17/22 per note. Valeria CLARK CM
--- NOTE | 2022-04-16 10:20 | PCM.CONS.R ---
Assessment & Plan Assessment/Plan (1) Hyponatremia with extracellular fluid depletion: (2) Hip pain, right: (3) Depression: (4) Diabetes mellitus: PLAN: We were consulted for hyponatremia. In reviewing past sodium trends, patient has had multiple episodes of low sodium levels dating back to at least 2014. Baseline sodium ranging around 130-136. Sodium was 134 on admission and today is 132. Patient reports she has not been started on any new medications. She states she has been on citalopram for at least the last 5 years. No diuretics. Patient appears to be euvolemic. 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 Her TSH and cortisol levels are normal. Serum Osmo 282, urine Osmo 283, urine sodium 100, urine potassium 14. She has a history of chronic diastolic heart failure, last echo 04/15/2022 EF 70%, mild mitral valve insufficiency, mild tricuspid valve insufficiency, mild diffuse aortic valve thickening, LV systolic function normal. Previous echo in July 2020 EF 65%. From renal standpoint and with current sodium levels/trends, patient is okay to move forward with surgery tomorrow for avascular necrosis of hip. Patient does not need tolvaptan, salt tabs or IVF. No need to stop Citalopram at this time. Further orders forthcoming as hospitalization evolves. Thank you for allowing us to participate in the care of Ms. Redman. HPI Consult Data Date of Consult: 04/16/22 HPI Narrative HPI Narrative: ELLEN REDMAN, is a 81 F with past medical history significant for diabetes mellitus type 2, hypertension, depression, and history of right hip pain, diagnosed with avascular necrosis of right hip who has been following with Ortho who presented to the ER with complaints of worsening pain in right hip and was admitted for further evaluation and treatment. Apparently because of significant pain patient has also had a decline in her functional status and nutritional status, she reports she has lost about 8 pounds. She has been taking pain medications and also received steroid injections with minimal relief. We were consulted for hyponatremia. Patient reports she had lab work drawn through [facility] on 04/13 and was called at home and informed that her sodium was low, apparently told to be 130. At the time of that phone call patient states she was asked to add salt to her diet. She states she normally does not use salt shaker. She has not increased or decreased fluid intake. Patient denies any recent nausea or vomiting, denies any recent diarrhea. She is not and has not been on any diuretics. She reports she has been taking Celexa for at least the last 5 years. Denies any headache or vision changes. FOR[facility]LY [facility] Medical History Anxiety Back pain Bilateral carotid bruits Bladder disease Cancer Cardiology follow-up encounter Carotid artery stenosis Carotid stenosis, bilateral Chronic constipation Constipation Depression Diabetes Diabetes mellitus Diabetes mellitus, type II Dietary restriction Dizziness Easy bruising Essential hypertension Heartburn High cholesterol History of CHF (congestive heart failure) History of echocardiogram History of edema History of irregular heartbeat History of pain when walking History of renal disease History of steroid therapy History of stress test Hyperlipidemia Hypothyroidism Injury of head and neck Leg cramps Loss of hearing Osteoporosis Pain Pneumonia Shortness of breath on exertion Syncope Thyroid disease Transaminitis Uses wheelchair Valvular heart disease Wears glasses Wears partial dentures Home Medications Synthroid 88 mcg tablet 88 mcg PO DAILY #90 tab NS 07/16/20 [Rx Last Taken 03/16/22] rosuvastatin 5 mg tablet 5 mg PO DAILY tab 10/21/20 [History Last Taken 03/08/22] cholecalciferol (vitamin D3) 125 mcg (5,000 unit) capsule 125 mcg PO DAILY 10/30/20 [History Last Taken 03/08/22] Januvia 100 mg PO DAILY 09/21/21 [History Last Taken 03/07/22] losartan 100 mg PO DAILY 09/23/21 [History Last Taken 03/08/22] hydralazine 50 mg tablet 50 mg PO TID tab 11/04/21 [History Last Taken 03/16/22] amlodipine 10 mg tablet 10 mg PO QHS 30 Days #30 tab 02/09/22 [Rx Last Taken 03/16/22] acetaminophen 1,000 mg PO Q6H PRN 04/15/22 [History Last Taken Unknown] ferrous sulfate [iron] 325 mg PO BID 04/15/22 [History Last Taken 04/14/22 17:00] folic acid 1 mg PO DAILY 04/15/22 [History Last Taken Unknown] insulin glargine [Lantus Solostar U-100 Insulin] 6 unit SUBCUT BREAKFAST 04/15/22 [History Last Taken Unknown] insulin lispro [Humalog KwikPen Insulin] 3 - 4 sliding scale dose SUBCUT 04/15/22 [History Last Taken Unknown] lactulose 15 ml PO DAILY PRN 04/15/22 [History Last Taken Unknown] mirabegron [Myrbetriq] 25 mg PO DAILY 04/15/22 [History Last Taken Unknown] oxycodone 10 mg PO Q6H PRN PRN 04/15/22 [History Last Taken Unknown] Allergy/AdvReac Type Severity Reaction Status Date / Time metformin Allergy Severe Rash Verified 04/15/22 09:17 neomycin [Neomycin] Allergy Severe Unknown Verified 04/15/22 09:17 Tetracyclines Allergy Severe Anaphylaxis Verified 04/15/22 09:17 Sulfa (Sulfonamide Allergy Constipatio Verified 04/15/22 09:17 Antibiotics) n Family History Mother Thyroid disorder Father Alzheimer disease Surgical History History of cardiac catheterization History of foot surgery History of left heart catheterization (12/28/14) History of thyroidectomy History of tonsillectomy and adenoidectomy Hx of colonoscopy Social History household members: none Smoking Status: Former smoker how long ago did patient quit smokin years ago alcohol intake: current alcohol intake frequency: a few times a month Alcohol type: wine substance use type: does not use caffeine: Yes Type: coffee Number of servings: 2 Physical Exam Narrative Const: Alert and oriented x3 HEENT: Head is normocephalic, atraumatic, pupils equal reactive to light, nation, oral mucosa and lips moist Resp: Lung sounds clear anteriorly and posteriorly, no wheezes rhonchi rales noted Cardio: S1, S2, RRR GI: Abdomen soft, nontender, +BSx4 quadrants Extremities: no edema. Lab / Micro Data Result Diagrams: 04/16/22 06:00 04/16/22 06:00 Labs: Laboratory Results - last 24 hr 04/15/22 11:00: WBC 5.3, RBC 4.47, Hgb 12.9, Hct 39.2, MCV 87.7, MCH 28.9, MCHC 32.9, RDW Std Deviation 45.9 H, RDW Coeff of Obed 14.4, Plt Count 261, MPV 9.5, Immature Gran % (Auto) 0.900, Neut % (Auto) 71.6 H, Lymph % (Auto) 12.9 L, [place] % (Auto) 11.6 H, Eos % (Auto) 1.7, Baso % (Auto) 1.3 H, Absolute Neuts (auto) 3.8, Absolute Lymphs (auto) 0.68 L, Nucleated RBC % 0 04/15/22 11:00: Sodium 134 L, Potassium 3.9, Chloride 100, Carbon Dioxide 28.0, Anion Gap 6, BUN 18, Creatinine 0.52 L, Estim Creat Clear Calc 32.91, Est GFR (MDRD) Af Amer 144, Est GFR (MDRD) Non-Af 119, BUN/Creatinine Ratio 34.4 H, Glucose 191 H, Calcium 10.0, Total Bilirubin 0.60, AST 35, ALT 42, Alkaline Phosphatase 120 H, Total Protein 7.3, Albumin 3.7, Globulin 3.6, Albumin/Globulin Ratio 1.0 04/15/22 11:00: Magnesium 2.2 04/15/22 11:00: Vitamin D 25-Hydroxy 50.0 04/15/22 14:50: Ur Random Sodium 100, Urine Potassium 14.0, Urine Chloride 91 04/15/22 14:50: Urine Osmolality 283, U Random Total Protein 8.2, Urine Creatinine < 13.00, Protein/Creatinin Ratio TNP 04/16/22 06:00: WBC 4.9, RBC 3.86 L, Hgb 11.2 L, Hct 34.4 L, MCV 89.1, MCH 29.0, MCHC 32.6, RDW Std Deviation 47.2 H, RDW Coeff of Obed 14.5, Plt Count 239, MPV 9.5, Immature Gran % (Auto) 1.000 H, Neut % (Auto) 56.7, Lymph % (Auto) 22.9, [place] % (Auto) 15.5 H, Eos % (Auto) 2.9, Baso % (Auto) 1.0, Absolute Neuts (auto) 2.8, Absolute Lymphs (auto) 1.11, Nucleated RBC % 0 04/16/22 06:00: Sodium 132 L, Potassium 3.9, Chloride 100, Carbon Dioxide 27.0, Anion Gap 5, BUN 24 H, Creatinine 0.55, Estim Creat Clear Calc 31.96, Est GFR (MDRD) Af Amer 136, Est GFR (MDRD) Non-Af 112, BUN/Creatinine Ratio 43.6 H, Glucose 157 H, Calcium 8.9, TSH 2.75 04/16/22 06:00: Cortisol 7.60 04/16/22 06:00: Serum Osmolality 282 Micro: Microbiology 04/15/22 11:00 Nasal Secretion SARS-CoV-2 Antigen (Rapid) - Final Radiology Impression Hip/Pelvis X-Ray 04/15/22 11:26 IMPRESSION: Marked degree of joint space narrowing of the right hip joint with findings suggesting avascular necrosis of the femoral head. Electronically Signed: Holland Ferreira MD at 12:20 EDT , Chest X-Ray 04/15/22 11:45 IMPRESSION: Moderate cardiomegaly. Marked degree of dextroscoliosis. Electronically Signed: Holland Ferreira MD at 12:21 EDT , Echocardiogram 04/15/22 14:35 Interpretation Summary Left ventricular systolic function is normal. The estimated ejection fraction is 70 %. The left atrium is severely enlarged. The right atrium is severely enlarged. There is moderate mitral annular calcification. Extension of the mitral annular calcification onto the base of the posterior mitral valve leaflet. Anterior leaflet diffuse mitral valve thickening. Mild (1+) mitral valve insufficiency. Mild tricuspid valve insufficiency. Mild diffuse aortic valve thickening. Mild focal aortic valve calcification. 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 Trivial pulmonic valve insufficiency. Trivial pericardial effusion. There are no echocardiographic indications of cardiac tamponade. Right ventricular systolic pressure estimated to be 37 mmHg. Transmitral diastolic flow velocities suggest diastolic dysfunction (pseudonormal pattern). Ordering Physician: Chalino Mckay Referring Physician: Karla Bhagat M.D. Performed By: Ulysses Sifuentes RCS
--- NOTE | 2022-04-16 10:48 | NURSING ---
Pt's. Aaron Barrera , assisted pt to change per request. No complications, pt tolerated well.
--- NOTE | 2022-04-16 10:55 | CASEMGMT ---
RN MANOLO Face to Face with patient for initial transition planning/care coordination assessment. RN CM introduced self and role at [facility]. Patient sitting in chair, alert and oriented. Patient willing to participate in assessment and is able to answer all questions appropriately. Care providers, pharmacy, and demographics verified. Patient wishes to discharge to TCU. Patient states she has no further needs or concerns at this time. CM to follow for discharge planning needs that may arise. PCP: Olay[place]a Specialists: Darinel ignition expert Preferred Pharmacy: [facility] Insurance: [employer] [facility] Prescription Benefit: yes Living Will/HPOA: yes, son Ramin Redman LNOK: son Living Arrangements: Patient lives alone in [place] with 2 steps to enter. Patient states she has private aides to assist with ADLs Transportation: son DME/HHC: Patient has rollator, cane, raised toilet, grab bars, and medical alert at home. Patient has previously had [facility]. Patient requesting TCU at discharge. Disposition Plan: Patient to discharge to TCU pending precert Jess LARSEN, RN, CM
[2022-04-16] MEDS: Insulin Lispro 100 UNIT/ML INSULN.PEN SC ×3 (12:06→21:41)
--- NOTE | 2022-04-16 14:01 | CHAPLAIN ---
Type of Pastoral Visit _x__ Initial Visit ___ Follow-up Visit ___ On-call Visit ___ General Patient Visit ___ Spiritual Assessment ___ Family Conference ___ Bereavement ___ Rapid Response ___ Code Blue ___ Other (describe below) Pastoral Care Referral From _x__ Patient ___ Family ___ Nurse ___ Physician ___ Reinsurance Accountant ___ Secondary Social Studies Teacher ___ Other (describe below) Sacrament/Intervention x Active listening ___ Anointing ___ Christianity ___ Bereavement ___ Communion ___ Emilie exploration ___ ___ Life review _x__ Prayer ___ Reconciliation ___ Sacrament of Sick ___ Supportive presence ___ Wedding ___ Other (describe below) Pastoral Comments patient describes her situation and the need to move up hip surgery; pt welcomes prayer support and spiritual care; son is with the patient; son sees ER as a blessing because it moves up her surgery date for better pain relieft;
--- NOTE | 2022-04-16 14:08 | PN.HOSP_ITS ---
Subjective Subjective Seen and examined. Follow-up for perioperative management for hyponatremia and hyperglycemia, diabetes mellitus type 2 Objective Data Objective Data Vital Signs: Vital Signs Temp Pulse Resp BP Pulse Ox 97.7 F L 67 18 137/43 H 94 04/16/22 13:40 04/16/22 13:44 04/16/22 13:40 04/16/22 13:44 04/16/22 13:40 Oxygen Delivery Method Room Air Weight: 104 lb 11.513 oz Body Mass Index (BMI) 18.7 Intake & Output: Intake and Output for Last 24 Hours 04/14/22 04/15/22 04/16/22 23:59 23:59 23:59 Intake Total 240 / 640 960 / 960 Output Total 600 / 600 Balance -360 / 40 960 / 960 Medical Nutrition Assessment Dietitian: Malnutrition Criteria Met Start: 04/16/22 11:28 Freq: Status: Active Protocol: Document 04/16/22 11:28 AG (Rec: 04/16/22 11:28 [id number]) Nutrition Malnutrition Evidence of Malnutrition Exists Yes Malnutrition (moderate): Chronic Evidenced By Suboptimal Energy Intake ( Moderate),Physical Changes ( Mild) Clinical Problem Chronic Disease or Condition Related Malnutrition Etiology moderate, chronic malnutrition r/t inadequate energy intake Signs/Symptoms as evidenced by muscle wasting /fat loss per physical exam in upper extremities, clavicle, acromion, and temporal areas per physical exam; estimated PO intake meeting 75% of estimated energy needs > 3 months; BMI 19.2 Status Active Problem Recommendation Dietitian Recommendations/Changes continue consistent CHO diet; will adjust to 1600 calories/ day; 120mL glucerna ONS 4x/day w/ medpass d/t malnutrition Lab / Micro Data Result Diagrams: 04/16/22 06:00 04/16/22 06:00 Labs: Laboratory Results - last 24 hr 04/15/22 11:00: Vitamin D 25-Hydroxy 50.0 04/15/22 14:50: Ur Random Sodium 100, Urine Potassium 14.0, Urine Chloride 91 04/15/22 14:50: Urine Osmolality 283, U Random Total Protein 8.2, Urine Creatinine < 13.00, Protein/Creatinin Ratio TNP 04/16/22 06:00: WBC 4.9, RBC 3.86 L, Hgb 11.2 L, Hct 34.4 L, MCV 89.1, MCH 29.0, MCHC 32.6, RDW Std Deviation 47.2 H, RDW Coeff of Obed 14.5, Plt Count 239, MPV 9.5, Immature Gran % (Auto) 1.000 H, Neut % (Auto) 56.7, Lymph % (Auto) 22.9, Bond % (Auto) 15.5 H, Eos % (Auto) 2.9, Baso % (Auto) 1.0, Absolute Neuts (auto) 2.8, Absolute Lymphs (auto) 1.11, Nucleated RBC % 0 04/16/22 06:00: Sodium 132 L, Potassium 3.9, Chloride 100, Carbon Dioxide 27.0, Anion Gap 5, BUN 24 H, Creatinine 0.55, Estim Creat Clear Calc 31.96, Est GFR (MDRD) Af Amer 136, Est GFR (MDRD) Non-Af 112, BUN/Creatinine Ratio 43.6 H, Glucose 157 H, Calcium 8.9, TSH 2.75 04/16/22 06:00: Cortisol 7.60 04/16/22 06:00: Serum Osmolality 282 Micro: Microbiology 04/15/22 11:00 Nasal Secretion SARS-CoV-2 Antigen (Rapid) - Final Radiography Diagnostic Testing: Radiology Impression Echocardiogram 04/15/22 14:35 Interpretation Summary Left ventricular systolic function is normal. The estimated ejection fraction is 70 %. The left atrium is severely enlarged. The right atrium is severely enlarged. There is moderate mitral annular calcification. Extension of the mitral annular calcification onto the base of the posterior mitral valve leaflet. Anterior leaflet diffuse mitral valve thickening. Mild (1+) mitral valve insufficiency. Mild tricuspid valve insufficiency. Mild diffuse aortic valve thickening. Mild focal aortic valve calcification. 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 Trivial pulmonic valve insufficiency. Trivial pericardial effusion. There are no echocardiographic indications of cardiac tamponade. Right ventricular systolic pressure estimated to be 37 mmHg. Transmitral diastolic flow velocities suggest diastolic dysfunction (pseudonormal pattern). Ordering Physician: Chalino Mckay Referring Physician: Karla Bhagat M.D. Performed By: Ulysses Sifuentes, CASEY Physical Exam Narrative General: Alert, Oriented x3, Cooperative HEENT: Atraumatic, PERRLA, EOMI, Normocephalic Oral: Oral mucosa dry. No Gingival or Mucosal Lesions/ Ulcerations Neck: Supple, No JVD, Negative Carotid Bruits Lungs/chest: Mild dextroscoliosis. Air entry diminished in bilateral lung bases. No crepitation/rhonchi Cardiovascular: Regular rate, Regular Rhythm, Normal S1, Normal S2, systolic murmur over LLSB and cardiac apex Abdomen: Bowel Sounds Present, Soft, Non Tender, Non-Distended : No renal angle tenderness. No suprapubic tenderness. Extremities: No edema, Capillary Refill Less than 3 Seconds Skin: No rashes, No breakdown Musculoskeletal: Right hip tender, ROM very restricted over right hip. Tenderness is better than yesterday. Neurological: Cranial nerves II-XII grossly intact, DTR 2+/4 and Symmetrical, Neuro grossly intact Psych/Mental Status: Flat affect. Assessment & Plan Assessment/Plan (1) Avascular necrosis of bone of hip: PLAN: 80-year-old full is being admitted for perioperative optimization for surgery for right hip avascular necrosis 1. Right hip avascular necrosis with severe osteoporosis, marked right dextroscoliosis, degenerative cervical thoracic and lumbar spine: Patient is being admitted on [facility]. NSQIP surgical risk calculated. It is above average for serious complication, any complication, cardiac complication, pneumonia, SSI, UTI, venous thromboembolism and renal failure. Patient is also high risk for readmission, sepsis, and discharged to SNF. I think patient did not ambulate therefore difficult to calculate exercise capacity but seems less than 4 mets. Incentive spirometry ordered. Heparin subcu for VT prophylaxis ordered. High surgical risk explained to the patient and her friend near the bedside. This was also discussed with grinder set up operator centerless Dr. Raymond advised to continue her home cardiac medications. Twelve-lead EKG normal sinus rhythm 86 bpm, QTC 452 ms. QRS 78 ms. Chest x-ray shows moderate cardiomegaly with marked degree of dextroscoliosis. 04/[address] Bhagat yesterday on 04/15. We discussed about hyponatremia, diabetes mellitus type 2 and her cardiac history. Vitamin D 25- hydroxy 50 normal. Albumin 3.7. 2. Cardiovascular disease: Valvular heart disease, bilateral carotid artery stenosis, hypertension, dyslipidemia, chronic diastolic heart failure: Last echo 08/18/2020 EF 65% LA severely enlarged, RA moderately enlarged. Mild MR, 1-2+ TR, mild IN. Also reported small mobile echodensity on aortic side of aortic valve compatible with a small limbal's excrescence. Patient last heart cath in November 2014 reported angiographically normal coronary artery disease. Stress treadmill echo was also normal and negative for ischemia by ECG and echocardiogram but reported very poor exercise capacity for age and test was terminated due to severe dyspnea and fatigue. 04/16 2D echo shows EF 70% severely enlarged right and left atrium. Mild MR, TR with degenerative changes of mitral and aortic valves. I also discussed with Dr. Tena yesterday. Overall echo is suggestive of chronic HFpEF and valvular heart disease. As patient heart rate is on the low 60s therefore will not recommend starting beta-edilson just prior to surgery as some patient might decompensate. Patient denies any chest pain pressure tightness or shortness of breath recently and before during exertion. Last carotid duplex in August 2020 shows more than 70% irregular calcific plaque proximal right ICA, more than 50% right ECA. 50 to 69% proximal left ICA more than 50% left ECA. Patient saw Dr. Enmanuel Matthews for carotid restenosis and was on Plavix before but discontinued probably as preop preparation. I also discussed with Dr. Tena yesterday. Overall echo is suggestive of chronic HFpEF and valvular heart disease. As patient heart rate is on the low 60s therefore will not recommend starting beta-edilosn just prior to surgery as some patient might decompensate. 3. Severe protein calorie malnutrition-BMI 18.7 but patient is severely malnourished with loss of subcutaneous fat and atrophy of muscles of extremities. 4. Type 2 diabetes mellitus-patient on insulin glargine and lispro at home along with Januvia. Hold Januvia. Accu-Chek H&H's coverage with Humalog sliding scale. Continue home dose of Lantus insulin 5. Hypothyroidism-continue Synthroid regimen. 6. CKD stage IIIb: Estimated creatinine clearance 32 mL/min although creatinine 0.52. Creatinine low because of low muscle mass. 7. Hypotonic hypovolemic hyponatremia: There is suspicion of SIADH as an outpatient. TSH and serum cortisol ordered for tomorrow a.m. Sodium is 134. The patient outpatient labs showed serum sodium 130, urine sodium 25 and osmolality 277 on April 13, 2020. Glucose was elevated 261 March 2022. Monitor sodium. I think serum sodium is not bad as perioperative requirement. 04/16: Sodium 132. Urine sodium 100, urine osmolality 283, serum sodium 282, TSH and cortisol level normal. As per Dr. Fox her serum sodium was about 340s as an outpatient. Overall clinical and lab features suggestive of SIADH. Nephr ology consult reviewed. Patient on fluid restriction. DVT prophylaxis- Heparin sc 5000 subcutaneous twice daily Total time of the visit including total time spent in counseling or coordination of care, (more than 50% of the total time, spent in obtaining medical information from nurses and other ancillary care providers,explaining to the patient about labs, imaging, diagnosis and management), discussion with the grinder set up operator centerless, review of previous medical record, admission and cardiology visit, review of labs and imaging is 45 minutes. Living will/advanced directive/end of life care: Patient does have living will or advanced directive. His son Mr. Mckinley Redman is next of kin and power of commercial litigation attorney for health. After discussion of benefits/risks procedures involved with full code, DNR CC arrest and DNR CC, the patient opted for DNRCC arrest with no intubation Patient does want artificial life support including intubation, tube feed, ventilator and/chest compression, central venous catheter, vasopressor and DC shock if needed Total time spent in [id number] encounter in discussion of advanced directive 16 minutes. Charges/Coding Visit Charges Inpatient E&M: 01129 Subs Hosp L2
[2022-04-16] MEDS: Glucerna Shake 120 ML LIQUID PO ×2 (14:33→18:23)
--- NOTE | 2022-04-16 15:19 | PN.ORTHO_ITS ---
Subjective Subjective This is an 81-year-old female who has avascular necrosis of the right hip. She was admitted to the hospital and orthopedics was consulted. Patient also has severe degenerative disc disease with scoliosis. Patient states her chief complaint today is pain in the right hip. Pain is with ambulation. Patient is currently being managed by the hospitalist team as well as nephrology. Nephrology gave okay to proceed with surgery as she has been having some problems with her electrolytes. The plan is for patient to undergo right total hip arthroplasty tomorrow April 17, 2022. She currently denies any chest pain or shortness of breath. Objective Data Objective Data Vital Signs: Vital Signs Temp Pulse Resp BP Pulse Ox 97.7 F L 67 18 137/43 H 94 04/16/22 13:40 04/16/22 13:44 04/16/22 13:40 04/16/22 13:44 04/16/22 13:40 Oxygen Delivery Method Room Air Weight: 47.5 kg Body Mass Index (BMI) 18.7 Intake & Output: Intake and Output for Last 24 Hours 04/14/22 04/15/22 04/16/22 23:59 23:59 23:59 Intake Total 240 / 640 960 / 960 Output Total 600 / 600 Balance -360 / 40 960 / 960 Medical Nutrition Assessment Dietitian: Malnutrition Criteria Met Start: 04/16/22 11:28 Freq: Status: Active Protocol: Document 04/16/22 11:28 (Rec: 04/16/22 11:28 [id number]) Nutrition Malnutrition Evidence of Malnutrition Exists Yes Malnutrition (moderate): Chronic Evidenced By Suboptimal Energy Intake ( Moderate),Physical Changes ( Mild) Clinical Problem Chronic Disease or Condition Related Malnutrition Etiology moderate, chronic malnutrition r/t inadequate energy intake Signs/Symptoms as evidenced by muscle wasting /fat loss per physical exam in upper extremities, clavicle, acromion, and temporal areas per physical exam; estimated PO intake meeting 75% of estimated energy needs > 3 months; BMI 19.2 Status Active Problem Recommendation Dietitian Recommendations/Changes continue consistent CHO diet; will adjust to 1600 calories/ day; 120mL glucerna ONS 4x/day w/ medpass d/t malnutrition Lab / Micro Data Result Diagrams: 04/16/22 06:00 04/16/22 06:00 Labs: Laboratory Results - last 24 hr 04/15/22 14:50: Ur Random Sodium 100, Urine Potassium 14.0, Urine Chloride 91 04/15/22 14:50: Urine Osmolality 283, U Random Total Protein 8.2, Urine Creatinine < 13.00, Protein/Creatinin Ratio TNP 04/16/22 06:00: WBC 4.9, RBC 3.86 L, Hgb 11.2 L, Hct 34.4 L, MCV 89.1, MCH 29.0, MCHC 32.6, RDW Std Deviation 47.2 H, RDW Coeff of Obed 14.5, Plt Count 239, MPV 9.5, Immature Gran % (Auto) 1.000 H, Neut % (Auto) 56.7, Lymph % (Auto) 22.9, [place] % (Auto) 15.5 H, Eos % (Auto) 2.9, Baso % (Auto) 1.0, Absolute Neuts (auto) 2.8, Absolute Lymphs (auto) 1.11, Nucleated RBC % 0 04/16/22 06:00: Sodium 132 L, Potassium 3.9, Chloride 100, Carbon Dioxide 27.0, Anion Gap 5, BUN 24 H, Creatinine 0.55, Estim Creat Clear Calc 31.96, Est GFR (MDRD) Af Amer 136, Est GFR (MDRD) Non-Af 112, BUN/Creatinine Ratio 43.6 H, Glucose 157 H, Calcium 8.9, TSH 2.75 04/16/22 06:00: Cortisol 7.60 04/16/22 06:00: Serum Osmolality 282 Micro: Microbiology 04/15/22 11:00 Nasal Secretion SARS-CoV-2 Antigen (Rapid) - Final Radiography Diagnostic Testing: Radiology Impression Echocardiogram 04/15/22 14:35 Interpretation Summary Left ventricular systolic function is normal. The estimated ejection fraction is 70 %. The left atrium is severely enlarged. The right atrium is severely enlarged. There is moderate mitral annular calcification. Extension of the mitral annular calcification onto the base of the posterior mitral valve leaflet. Anterior leaflet diffuse mitral valve thickening. Mild (1+) mitral valve insufficiency. Mild tricuspid valve insufficiency. Mild diffuse aortic valve thickening. Mild focal aortic valve calcification. 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 Trivial pulmonic valve insufficiency. Trivial pericardial effusion. There are no echocardiographic indications of cardiac tamponade. Right ventricular systolic pressure estimated to be 37 mmHg. Transmitral diastolic flow velocities suggest diastolic dysfunction (pseudonormal pattern). __ Ordering Physician: Chalino Mckay Referring Physician: Karla Bhagat M.D. Performed By: Ulysses Sifuentes RCS Physical Exam Narrative Vital signs stable and afebrile. Patient is able to plantarflex and dorsiflex actively. Sensation is intact to light touch to saphenous, sural, superficial and deep peroneal, and tibial distribution. Right thigh is cool to touch without signs of infection. She has tenderness to palpation of the anterior and lateral thigh. Negative Homans bilaterally, negative signs and symptoms of DVT. Const alert, oriented x3 and no apparent distress Assessment & Plan Assessment/Plan (1) Hip pain, right: PLAN: 1. Right hip pain with avascular necrosis: Patient is currently planned for right total hip arthroplasty tomorrow April 17, 2022. Patient overall is doing well this afternoon with her chief complaint as pain in the hip particularly with ambulation. Medicine is involved with optimizing patient perioperatively. Nephrology has been involved and given clearance for surgery. Vitals are stable as well as lab work. We are still planning to move forward with surgery tomorrow. Dr. Magdiel Kline did discuss risks and benefits of the surgery. Case management has been involved as well and plan is for patient to go to the transitional care unit postoperatively once pre-CERT has been obtained. Continue current treatment while in hospital prior to surgery per hospitalist. This dictation was created using voice recognition software. Phonetic and/or grammatical errors may exist.
[2022-04-16] MEDS: Atorvastatin Calcium 10 MG Tablet PO (21:38)
[2022-04-16] MEDS: amLODIPine 10 MG Tablet PO (21:38)
[2022-04-17] VITALS (23 sets, daily range): BP systolic 106–157; BP diastolic 41–93; PULSE 65–137; RESP 14–20; TEMP 35.7–37.2; O2SAT 93–99; BMI 18.5
--- NOTE | 2022-04-17 05:55 | EKG12_ITS ---
Test Reason : AM Blood Pressure : / mmHG Vent. Rate : 075 BPM Atrial Rate : 075 BPM P-R Int : 178 ms QRS Dur : 082 ms QT Int : 384 ms P-R-T Axes : 084 -16 038 degrees QTc Int : 428 ms Normal sinus rhythm Septal infarct , age undetermined Abnormal ECG When compared with ECG of 15-APR-2022 10:36, MANUAL COMPARISON REQUIRED, DATA IS UNCONFIRMED Confirmed by LORY JOLLY, NASH ([id number]), magazine editor CELESTE RODRIGUEZ ([id number]) on 04/20/2022 10:10:31 A M Referred By: [place] Confirmed By:JOSETTE HENLEY MD
[2022-04-17 06:20] LABS: Absolute Lymphocyte Count 1.17 X10^3/uL (0.83-4.51); Absolute Neutrophil Count 2.9 X10^3/uL (2.0-7.7); Basophil# 0.06 X10^3/uL; Basophil% 1.2 % (0-1); Eosinophil# 0.16 X10^3/uL; Eosinophils% 3.1 % (0-5); Hematocrit 33.9 % (37-47); Hemoglobin 11.1 g/dL (12.0-15.0); Lymphocyte # 1.17 X10^3/ul (0.83-4.51); Lymphocyte % 22.7 % (19-41); Mean Corp Hgb Conc 32.7 g/dL (32-36); Mean Corpuscular Hgb 28.8 pg (27.0-32.0); Mean Corpuscular Volume 88.1 fL (81-99); Mean Platelet Vol. 9.9 fl (6.2-12.0); Monocyte# 0.83 X10^3/uL; Monocyte% 16.1 % (0-10); NRBC Flagged by Analyzer 0 % (0-5); Neutrophil # 2.88 X10^3/uL (2.7-7.7); Neutrophil % 55.9 % (47-70); Platelet Count 243 K/mm3 (150-450); RBC Distribution Width CV 14.4 % (11.6-14.6); RBC Distribution Width SD 46.1 fl (35.1-43.9); Red Blood Count 3.85 M/mm3 (4.2-5.4); White Blood Count 5.2 K/mm3 (4.4-11.0)
[2022-04-17 06:28] LABS: Partial Thromboplast Time 31.5 Seconds (24.1-36.2)
[2022-04-17] MEDS: hydrALAZINE 50 MG Tablet PO ×2 (06:39→23:25)
[2022-04-17] MEDS: Levothyroxine 88 MCG Tablet PO (06:39)
[2022-04-17] MEDS: oxyCODONE 5 MG Tablet 10 MG PO (06:43)
[2022-04-17 06:54] LABS: Anion Gap 6 (5-15); BUN 36 mg/dL (7-18); BUN/Creat Ratio 55.1 RATIO (10-20); Calcium,Total 9.1 mg/dL (8.5-10.1); Chloride 101 mmol/L (98-107); Cholesterol 168 mg/dL (200); Creatinine, Serum 0.65 mg/dL (0.55-1.02); EST Glomerular Filtration Rate 92 mL/min (>60); Est Glom Filt Rate - Afr Amer 111 mL/min (>60); Estimated Creatinine Clearance 31.49 ml/min; Glucose 112 mg/dL (74-106); High Density Lipoprotein 97 mg/dL; Sodium Level 133 mmol/L (136-145); Triglycerides 38 mg/dL; Very Low Density Lipoprotein 8 mg/dL (5-40)
--- NOTE | 2022-04-17 08:45 | PN.RENAL_ITS ---
Subjective Subjective Following for hyponatremia No overnight events. Denies any complaints today. Sitting in chair. Objective Data Objective Data Vital Signs: Vital Signs Temp Pulse Resp BP Pulse Ox 98.9 F 72 16 140/60 H 97 04/17/22 04:30 04/17/22 06:39 04/17/22 04:30 04/17/22 06:39 04/17/22 07:30 Oxygen Delivery Method Room Air Weight: 46.8 kg Body Mass Index (BMI) 18.5 Intake & Output: Intake and Output for Last 24 Hours 04/15/22 04/16/22 04/17/22 23:59 23:59 23:59 Intake Total 240 / 640 1320 / 1320 Output Total 600 / 600 Balance -360 / 40 1320 / 1320 Medical Nutrition Assessment Dietitian: Malnutrition Criteria Met Start: 04/16/22 11:28 Freq: Status: Active Protocol: Document 04/16/22 11:28 (Rec: 04/16/22 11:28 [id number]) Nutrition Malnutrition Evidence of Malnutrition Exists Yes Malnutrition (moderate): Chronic Evidenced By Suboptimal Energy Intake ( Moderate),Physical Changes ( Mild) Clinical Problem Chronic Disease or Condition Related Malnutrition Etiology moderate, chronic malnutrition r/t inadequate energy intake Signs/Symptoms as evidenced by muscle wasting /fat loss per physical exam in upper extremities, clavicle, acromion, and temporal areas per physical exam; estimated PO intake meeting 75% of estimated energy needs > 3 months; BMI 19.2 Status Active Problem Recommendation Dietitian Recommendations/Changes continue consistent CHO diet; will adjust to 1600 calories/ day; 120mL glucerna ONS 4x/day w/ medpass d/t malnutrition Lab / Micro Data Result Diagrams: 04/17/22 05:35 04/17/22 05:35 Labs: Laboratory Results - last 24 hr 04/17/22 05:35: WBC 5.2, RBC 3.85 L, Hgb 11.1 L, Hct 33.9 L, MCV 88.1, MCH 28.8, MCHC 32.7, RDW Std Deviation 46.1 H, RDW Coeff of Obed 14.4, Plt Count 243, MPV 9.9, Immature Gran % (Auto) 1.000 H, Neut % (Auto) 55.9, Lymph % (Auto) 22.7, [place] % (Auto) 16.1 H, Eos % (Auto) 3.1, Baso % (Auto) 1.2 H, Absolute Neuts (auto) 2.9, Absolute Lymphs (auto) 1.17, Nucleated RBC % 0 04/17/22 05:35: Sodium 133 L, Potassium 4.0, Chloride 101, Carbon Dioxide 26.0, Anion Gap 6, BUN 36 H, Creatinine 0.65, Estim Creat Clear Calc 31.49, Est GFR (MDRD) Af Amer 111, Est GFR (MDRD) Non-Af 92, BUN/Creatinine Ratio 55.1 H, Glucose 112 H, Calcium 9.1, Triglycerides 38, Cholesterol 168, LDL Cholesterol 63, VLDL Cholesterol 8, HDL Cholesterol 97 04/17/22 05:35: APTT 31.5 Micro: Microbiology 04/15/22 11:00 Nasal Secretion SARS-CoV-2 Antigen (Rapid) - Final Physical Exam Narrative Const: Alert and oriented x3 HEENT: Head is normocephalic, atraumatic, pupils equal reactive to light, nation, oral mucosa and lips moist Resp: Lung sounds clear anteriorly and posteriorly, no wheezes rhonchi rales noted Cardio: S1, S2, RRR GI: Abdomen soft, nontender, +BSx4 quadrants Extremities: no edema. 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 Sodium 134 on admission, went to 132 yesterday and today is 133. In reviewing past sodium trends, patient has had multiple episodes of low sodium levels dating back to at least 2015; but sodium will also normalize. Baseline sodium ranging around 130- 136. No new medications. She states she has been on citalopram for at least the last 5 years. Not on diuretics. TSH and cortisol levels are normal. Serum Osmo 282, urine Osmo 283, urine sodium 100, urine potassium 14. - Currently on FR. Once able to eat and once home encouraged patient to increase solute intake - history of chronic diastolic heart failure, last echo 04/15/2022 EF 70%, mild mitral valve insufficiency, mild tricuspid valve insufficiency, mild diffuse aortic valve thickening, LV systolic function normal. Previous echo in July 2020 EF 65%. - right hip pain with avascular necrosis; for surgery today -From renal standpoint and with current sodium levels/trends, patient is okay to move forward with surgery. Patient does not need tolvaptan, salt tabs or IVF. No need to stop Citalopram at this time.
[2022-04-17] MEDS: 0.9% Saline Lock 10 ML Syringe IV (09:05)
[2022-04-17] MEDS: HYDROmorphone 0.5 MG/0.5 ML SYRINGE IV (09:05)
[2022-04-17] MEDS: Losartan Potassium 100 MG Tablet PO (09:05)
--- NOTE | 2022-04-17 11:05 | PCM.PN.BLA ---
Progress Note The patient was seen [id number] independently. I agree with the assessment and plan as outlined by nephrology nurse practitioner, Bharati Fisher NP. The patient likely has chronic mild hyponatremia due to SIADH/reset osmostat. She is asymptomatic. Continue to encourage solute such as protein intake. There is no need to add sodium chloride tablet. No need to stop SSRI since serum sodium is stable. Okay from nephrology standpoint to proceed with any necessary surgery or procedures. Will continue to monitor serum sodium perioperatively.
--- NOTE | 2022-04-17 12:26 | NURSING ---
report called to ac patient taken down to surgery
--- NOTE | 2022-04-17 12:47 | PN.HOSP_ITS ---
Subjective Subjective Follow-up perioperative for right hip surgery. Objective Data Objective Data Vital Signs: Vital Signs Temp Pulse Resp BP Pulse Ox 97.9 F 65 14 141/56 H 98 04/17/22 08:59 04/17/22 08:59 04/17/22 08:59 04/17/22 08:59 04/17/22 08:59 Oxygen Delivery Method Room Air Weight: 103 lb 2.821 oz Body Mass Index (BMI) 18.5 Intake & Output: Intake and Output for Last 24 Hours 04/15/22 04/16/22 04/17/22 23:59 23:59 23:59 Intake Total 240 / 640 1320 / 1320 Output Total 600 / 600 Balance -360 / 40 1320 / 1320 Medical Nutrition Assessment Dietitian: Malnutrition Criteria Met Start: 04/16/22 11:28 Freq: Status: Active Protocol: Document 04/16/22 11:28 (Rec: 04/16/22 11:28 [id number]) Nutrition Malnutrition Evidence of Malnutrition Exists Yes Malnutrition (moderate): Chronic Evidenced By Suboptimal Energy Intake ( Moderate),Physical Changes ( Mild) Clinical Problem Chronic Disease or Condition Related Malnutrition Etiology moderate, chronic malnutrition r/t inadequate energy intake Signs/Symptoms as evidenced by muscle wasting /fat loss per physical exam in upper extremities, clavicle, acromion, and temporal areas per physical exam; estimated PO intake meeting 75% of estimated energy needs > 3 months; BMI 19.2 Status Active Problem Recommendation Dietitian Recommendations/Changes continue consistent CHO diet; will adjust to 1600 calories/ day; 120mL glucerna ONS 4x/day w/ medpass d/t malnutrition Lab / Micro Data Result Diagrams: 04/17/22 05:35 04/17/22 05:35 Labs: Laboratory Results - last 24 hr 04/17/22 05:35: WBC 5.2, RBC 3.85 L, Hgb 11.1 L, Hct 33.9 L, MCV 88.1, MCH 28.8, MCHC 32.7, RDW Std Deviation 46.1 H, RDW Coeff of Obed 14.4, Plt Count 243, MPV 9.9, Immature Gran % (Auto) 1.000 H, Neut % (Auto) 55.9, Lymph % (Auto) 22.7, [place] % (Auto) 16.1 H, Eos % (Auto) 3.1, Baso % (Auto) 1.2 H, Absolute Neuts (auto) 2.9, Absolute Lymphs (auto) 1.17, Nucleated RBC % 0 04/17/22 05:35: Sodium 133 L, Potassium 4.0, Chloride 101, Carbon Dioxide 26.0, Anion Gap 6, BUN 36 H, Creatinine 0.65, Estim Creat Clear Calc 31.49, Est GFR (MDRD) Af Amer 111, Est GFR (MDRD) Non-Af 92, BUN/Creatinine Ratio 55.1 H, Glucose 112 H, Calcium 9.1, Triglycerides 38, Cholesterol 168, LDL Cholesterol 63, VLDL Cholesterol 8, HDL Cholesterol 97 04/17/22 05:35: APTT 31.5 Micro: Microbiology 04/15/22 11:00 Nasal Secretion SARS-CoV-2 Antigen (Rapid) - Final Physical Exam Narrative General: Alert, Oriented x3, Cooperative HEENT: Atraumatic, PERRLA, EOMI, Normocephalic Oral: Oral mucosa dry. No Gingival or Mucosal Lesions/ Ulcerations Neck: Supple, No JVD, Negative Carotid Bruits Lungs/chest: Mild dextroscoliosis. Air entry diminished in bilateral lung bases. No crepitation/rhonchi Cardiovascular: Regular rate, Regular Rhythm, Normal S1, Normal S2, systolic murmur over LLSB and cardiac apex Abdomen: Bowel Sounds Present, Soft, Non Tender, Non-Distended : No renal angle tenderness. No suprapubic tenderness. Extremities: No edema, Capillary Refill Less than 3 Seconds Skin: No rashes, No breakdown Musculoskeletal: Right hip tender on movement, ROM very restricted over right hip. On pain medication. Neurological: Cranial nerves II-XII grossly intact, DTR 2+/4 and Symmetrical, Neuro grossly intact Psych/Mental Status: Flat affect. Assessment & Plan Assessment/Plan (1) Avascular necrosis of bone of hip: PLAN: 80-year-old full is being admitted for perioperative optimization for surgery for right hip avascular necrosis 1. Right hip avascular necrosis with severe osteoporosis, marked right dextroscoliosis, degenerative cervical thoracic and lumbar spine: Patient is kiko ng admitted on [facility]. NSQIP surgical risk calculated. It is above average for serious complication, any complication, cardiac complication, pneumonia, SSI, UTI, venous thromboembolism and renal failure. Patient is also high risk for readmission, sepsis, and discharged to SNF. I think patient did not ambulate therefore difficult to calculate exercise capacity but seems less than 4 mets. Incentive spirometry ordered. Heparin subcu for VT prophylaxis ordered. High surgical risk explained to the patient and her friend near the bedside. This was also discussed with wireless internet installer Dr. Raymond advised to continue her home cardiac medications. Twelve-lead EKG normal sinus rhythm 86 bpm, QTC 452 ms. QRS 78 ms. Chest x-ray shows moderate cardiomegaly with marked degree of dextroscoliosis. 04/[address] Bhagat yesterday on 04/15. We discussed about hyponatremia, diabetes mellitus type 2 and her cardiac history. Vitamin D 25- hydroxy 50 normal. Albumin 3.7. 04/17: Plan for right hip arthroplasty. Patient is perioperatively optimized in regards to hyponatremia and hyperglycemia. I also discussed with the wireless internet installer as mentioned below. 2. Cardiovascular disease: Valvular heart disease, bilateral carotid artery stenosis, hypertension, dyslipidemia, chronic diastolic heart failure: Last echo 08/18/2020 EF 65% LA severely enlarged, RA moderately enlarged. Mild MR, 1-2+ TR, mild VT. Also reported small mobile echodensity on aortic side of aortic valve compatible with a small limbal's excrescence. Patient last heart cath in November 2014 reported angiographically normal coronary artery disease. Stress treadmill echo was also normal and negative for ischemia by ECG and echocardiogram but reported very poor exercise capacity for age and test was terminated due to severe dyspnea and fatigue. 04/16 2D echo shows EF 70% severely enlarged right and left atrium. Mild MR, TR with degenerative changes of mitral and aortic valves. I also discussed with Dr. Tena yesterday. Overall echo is suggestive of chronic HFpEF and valvular heart disease. As patient heart rate is on the low 60s therefore will not recommend starting beta-edilson just prior to surgery as some patient might decompensate. Patient denies any chest pain pressure tightness or shortness of breath recently and before during exertion. Last carotid duplex in August 2020 shows more than 70% irregular calcific plaque proximal right ICA, more than 50% right ECA. 50 to 69% proximal left ICA more than 50% left ECA. Patient saw Dr. Enmanuel Matthews for carotid restenosis and was on Plavix before but discontinued probably as preop preparation. I also discussed with Dr. Tena yesterday. Overall echo is suggestive of chronic HFpEF and valvular heart disease. As patient heart rate is on the low 60s therefore will not recommend starting beta-edilson just prior to surgery as some patient might decompensate. 3. Severe protein calorie malnutrition-BMI 18.7 but patient is severely malnourished with loss of subcutaneous fat and atrophy of muscles of extremities. 4. Type 2 diabetes mellitus-patient on insulin glargine and lispro at home along with Januvia. Hold Januvia. Accu-Chek H&H's coverage with Humalog sliding scale. Continue home dose of Lantus insulin 5. Hypothyroidism-continue Synthroid regimen. 6. CKD stage IIIb: Estimated creatinine clearance 32 mL/min although creatinine 0.52. Creatinine low because of low muscle mass. 7. 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 Sodium is 134. The patient outpatient labs showed serum sodium 130, urine sodium 25 and osmolality 277 on April 13, 2020. Glucose was elevated 261 March 2022. Monitor sodium. I think serum sodium is not bad as perioperative requirement. 04/16: Sodium 132. Urine sodium 100, urine osmolality 283, serum sodium 282, TSH and cortisol level normal. As per Dr. Fox her serum sodium was about 340s as an outpatient. Overall clinical and lab features suggestive of SIADH. Nephrology consult reviewed. Patient on fluid restriction. 04/17: Serum sodium 133. Spudder agreed with diagnosis of SIADH. Fluid restriction to be resumed after surgery when hemodynamically stable. After surgery she will be encouraged for to increase solute intake. Spudder recommendation appreciated DVT prophylaxis- Heparin sc 5000 subcutaneous twice daily Total time of the visit including total time spent in counseling or coordination of care, (more than 50% of the total time, spent in obtaining medical information from nurses and other ancillary care providers,explaining to the patient about labs, imaging, diagnosis and management), discussion with the wireless internet installer, review of previous medical record, admission and cardiology visit, review of labs and imaging is 45 minutes. Living will/advanced directive/end of life care: Patient does have living will or advanced directive. His son Mr. Mckinley Redman is next of kin and power of quarter lining smoother for health. After discussion of benefits/risks procedures involved with full code, DNR CC arrest and DNR CC, the patient opted for DNRCC arrest with no intubation Patient does want artificial life support including intubation, tube feed, ventilator and/chest compression, central venous catheter, vasopressor and DC shock if needed Total time spent in [id number] encounter in discussion of advanced directive 16 minutes. Charges/Coding Visit Charges Inpatient E&M: 50155 Subs Hosp L2
[2022-04-17] MEDS: Lactated Ringers 1,000 ML 15 ML IV (13:00)
--- NOTE | 2022-04-17 13:00 | HIP_PTH ---
PATIENT: ELLEN REDMAN LOC: [facility] U#:[id number] AGE/SX: 81/F ROOM: [facility] RE04/15/[address]: Dr. Bethany Redman DO : 1940 BED: 1 DIS: 04/20/2022 SPEC #: [id number] RECD: 04/20/22 07:29 STATUS: SWAPNIL REInocencia #: [id number] CHELITA: 04/17/22 13:[address]: Magdiel Kline DEPT: SURGICAL PATHOLOGY RECD BY: Juhi Enrique ENTERED: 04/20/22 08:34 SP TYPE: TOTAL HIP OTHR DR: MD Dr. Levon Ruby MD Dr. Kathryn Lee, DO Dr. Prakash Chand, MD Tissues: Hip, NOS Procedures: Decalcification bone/plaque Surgery Specimen Level IV HEADER OPERATION: Total hip anterior approach PRE-OP DIAGNOSIS: Avascular necrosis of bone of hip TISSUE SUBMITTED: Right hip bone and soft tissue MICROSCOPIC DIAGNOSIS Right hip bone and soft tissue, total hip replacement/resection: Femoral head with degenerative osteoarthritic changes. Focal changes consistent with avascular necrosis. Fibroadipose tissue, fibroconnective tissue and reactive synovial tissue. Focal changes consistent with pseudogout. SJ:danica 04/23/2022 MICROSCOPIC DESCRIPTION Slides are reviewed. GROSS DESCRIPTION Received is one container labeled with the patient's name and designated right hip bone and soft tissue. The specimen consists of a distorted femoral head measuring 4.5 x 4.5 x 3.8 cm. The articular surface displays prominent bone erosion and a geographic area of yellow discoloration measuring 3.5 x 1.5 cm. Sections reveal this area extends up to the depth of 1.0 cm. Also present in the specimen container are multiple irregular fragments of bone and soft tissue measuring in aggregate 9 x 5 x 3 cm. Engineer [employer] Ex[employer]er sections are submitted in two cassettes as follows: 1 - soft tissue, 2 - bone after decalcification. / AM:danica 04/20/2022 TC:5 [facility]: [id number], [id number]
[2022-04-17] MEDS: Cefazolin 2 GM in 0.9% Normal Saline 100 ML IV (13:30)
--- NOTE | 2022-04-17 14:16 | RAD_ITS ---
STUDY: X-RAY - PELVIS AND RIGHT HIP REASON FOR EXAM: Female, 81 years old. Post Op -- AP both hips on single dawna/lateral of op hip PACU TECHNIQUE: 2 views of the pelvis and hip. COMPARISON: 04/15/2022 FINDINGS: There is a non-specific bowel gas pattern. Normal visualized soft tissue structures. Normal bilateral iliac wings, sacroiliac joints and visualized sacrum. Normal bilateral superior and inferior pubic rami. Normal pubic symphysis. Normal bilateral ischial tuberosities. New right total hip arthroplasty in anatomic alignment.. RAD/Hip 1 view with Pelvis IMPRESSION: Status post right total hip arthroplasty Electronically Signed: Prashanth Caban MD at 16:45 EDT ,
--- NOTE | 2022-04-17 15:02 | OP.PCM_ITS ---
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 Insignia Jassi femoral stem size 3, high offset 2. Jassi trident 2 acetabular shell size 48 mm 3. [place] X3 polyethylene D 4. Jassi Biolox delta 36mm, -5mm femoral head Brief history operative indications: 81 yo F who failed conservative measures for their hip osteoarthritis and acute collapse of avascular necrosis. X-rays were consistent with osteoarthritis including joint space narrowing, osteophyte formation and subchondral cysts and acute avascular necrosis collapse. We attempted to optimize the patient based on her medical comorbidities however she had progressive decline in function and significant side effects from ankle medications resulting in electrolyte abnormalities based on this her primary care physician call me with concerns 2 days ago she was admitted to the hospital for medical optimization and acute treatment. Total hip replacement was discussed with the patient with risks and benefits including but not limited to blood loss, DVTs, PEs, neurovascular damage, dislocation, general risks of anesthesia including loss of life. Patient demonstrated an understanding medical clearance is obtained the patient was consented for surgery. Procedure: On the date of procedure the patient's right hip was marked in the preoperative area. Patient was then taken back to the operating room where anesthesia assumed control of the C-spine and airway and administered anesthetic. Patient was transferred to the operating table and placed in the supine position. The hips were placed at the break of the bed and a sacral bump was placed. The right lower extremity was then prepped out in a sterile fashion using chlorhexidine while the surgeon scrubbed. The PA was vital in the positioning of the patient. Upon reentering the room the right lower extremity was draped in the standard orthopedic fashion and the incision was marked. A timeout was called and everyone agreed upon the side, the site, the procedure be performed, antibody given, and patient's identity. At this time incision was made through skin, subcutaneous tissue, and fat down to fascia. The fascia was then incised and the TFL was retracted laterally. A retractor was placed on the lateral border of the femoral neck. Attention was directed to the inferior portion of the approach and all crossing vessels were identified and appropriately coagulated. A retractor was then placed on the medial portion of the femoral neck. The anterior capsule was then cleared of all soft tissue and then H shaped capsulotomy was made. The retractors were then placed inside the capsule. The femoral neck was identified and a cleanup cut was made. At this time a power corkscrew was used to remove the femoral head. Attention was then turned toward the acetabulum where the soft tissues were appropriately retracted and the acetabulum was sequentially reamed to 50 mm. A 50 mm cup was then selected and impacted into place. A 40 mm screw was placed in the safe zone with good purchase. Acetabular liner was impacted into place and locking mechanism was verified. The position of the acetabular cup was then verified under live fluoroscopy. Attention was then turned to the femur. Soft tissue releases on the medial and lateral femoral neck were appropriately done, the leg was externally rotated and lateralized. A Velasco retractor was placed medially and proximally to the greater trochanter this allowed appropriate visualization and exposure of the femoral canal. Rongeour was then used to remove excess lateral bone. A canal finder and entry broach were used to open the proximal canal. Once we verified we were down the femoral canal we subsequently broached up to a size 3 femur. The appropriate neck was placed in the previously selected head was trialed with a -5 mm neck. Traction was pulled and the hip was reduced with internal rotation. Once it was appropriately reduced and stability was checked. There was minimal shuck, equal leg lengths and appropriate stability with hyperextension and external rotation as well as with 90? flexion and internal rotation. Fluoroscopy was then also used to verify the position of the components and leg lengths using the contralateral side for comparison. The trial components were then dislocated the proximal femur was again exposed and the components were removed from the wound. The final components were verif ied and opened. The wound was copiously irrigated out with normal saline. The acetabulum was checked for any residual debris. The final components were placed and impacted. Traction and internal rotation were again used to reduce the hip. After adequate reduction the hip remained stable with appropriate leg lengths. The final components were once again checked with live fluoroscopy and were found to be satisfactory. The wound was then copiously irrigated with normal saline once more, and hemostasis was obtained. Closure was then done using #1 Vicryl runner to close the fascia. A 2-0 vicryl interuppted sutures were used to close the subcutaneous skin. A 3-0 Monocryl and Steri-Strips were used for final skin closure. A Silverlon dressing was placed. Patient was awakened by anesthesia and transferred to the rsamoa. Patient was then transferred to the PACU for recovery. During the course of the procedure the physician manager country (PE) played a vital role. Their intimate knowledge of my steps in the procedure aided in safe and expedient completion of the procedure. The PE played a vital rolls in positioning particularly in obtaining the appropriate positioning of the sacral bump. The PE was also vital in the retraction of soft tissues during the exposure and especially the femoral work as this is a vital part of the procedure to prevent complications and fractures. The PE was also vital and protecting soft tissues during times of bony cuts and reaming. He also played a vital role in closure with my direct supervision. The PE was also important during reduction and dislocation of the joint and trials intraoperatively. Postoperative plan: Patient will get 24 hours postop antibiotics. Patient will get in-house physical therapy and will be weight-bear as tolerated. Patient will follow up in office in 2 weeks for a wound check and x-rays. Aspirin 81 mg twice daily. Complications No intraoperative complications Admit VTE Documentation VTE Present on Admission: No VTE Mechan Device Prophylaxis: SCD's and Thigh High MIGUELINA Hose VTE Pharm Prophylaxis ordered?: Yes
--- NOTE | 2022-04-17 15:56 | EKG12_ITS ---
Test Reason : RYTHM CHANGE Blood Pressure : / mmHG Vent. Rate : 068 BPM Atrial Rate : 068 BPM P-R Int : 160 ms QRS Dur : 080 ms QT Int : 410 ms P-R-T Axes : 069 -26 042 degrees QTc Int : 435 ms Sinus rhythm with marked sinus arrhythmia Septal infarct , age undetermined Abnormal ECG When compared with ECG of 17-APR-2022 16:08, MANUAL COMPARISON REQUIRED, DATA IS UNCONFIRMED Confirmed by NIDHI JOLLY, LAINE ([id number]), online editor CELESTE RODRIGUEZ ([id number]) on 04/20/2022 12:56:48 PM Referred By: [place] Confirmed By:LAINE TERRELL MD
--- NOTE | 2022-04-17 16:15 | RAD_ITS ---
STUDY: X-RAY - PELVIS AND RIGHT HIP REASON FOR EXAM: Female, 81 years old. Post Op -- AP both hips on single dawna/lateral of op hip PACU TECHNIQUE: 2 views of the pelvis and hip. COMPARISON: 04/15/2022 FINDINGS: There is a non-specific bowel gas pattern. Normal visualized soft tissue structures. Normal bilateral iliac wings, sacroiliac joints and visualized sacrum. Normal bilateral superior and inferior pubic rami. Normal pubic symphysis. Normal bilateral ischial tuberosities. New right total hip arthroplasty in anatomic alignment.. RAD/Hip Min 2 Views (Portable) IMPRESSION: Status post right total hip arthroplasty Electronically Signed: Prashanth Caban MD at 16:45 EDT ,
--- NOTE | 2022-04-17 19:17 | EKG12_ITS ---
Test Reason : AFIB RVR Blood Pressure : / mmHG Vent. Rate : 132 BPM Atrial Rate : 110 BPM P-R Int : 000 ms QRS Dur : 080 ms QT Int : 290 ms P-R-T Axes : 000 -58 -73 degrees QTc Int : 429 ms Atrial fibrillation Left axis deviation Septal infarct , age undetermined Marked ST abnormality, possible inferolateral subendocardial injury Abnormal ECG When compared with ECG of 17-APR-2022 05:53, MANUAL COMPARISON REQUIRED, DATA IS UNCONFIRMED Confirmed by NIDHI JOLLY, LAINE ([id number]), content editor CELESTE RODRIGUEZ ([id number]) on 04/20/2022 12:59:51 PM Referred By: [place] Confirmed By:LAINE TERRELL MD
[2022-04-17] MEDS: Acetaminophen 500 MG Tablet 1000 MG PO (21:05)
[2022-04-17] MEDS: amLODIPine 10 MG Tablet PO (21:05)
[2022-04-17] MEDS: Senna/Docusate Sodium 1 Tablet 2 TABLET PO (21:05)
[2022-04-17] MEDS: Atorvastatin Calcium 10 MG Tablet PO (21:05)
[2022-04-17] MEDS: oxyCODONE 5 MG Tablet PO (21:06)
[2022-04-17] MEDS: Cefazolin 1 GM/50 ML BAG IV (23:22)
[2022-04-17] MEDS: Insulin Lispro 100 UNIT/ML INSULN.PEN SC (23:24)
[2022-04-17 23:35] LABS: Bedside Glucose 275 mg/dL (74-106)
[2022-04-18] VITALS (13 sets, daily range): BP systolic 127–148; BP diastolic 44–60; PULSE 60–74; RESP 16–20; TEMP 36.1–37.2; O2SAT 96–100
[2022-04-18] MEDS: Acetaminophen 500 MG Tablet 1000 MG PO ×3 (06:07→21:23)
[2022-04-18] MEDS: hydrALAZINE 50 MG Tablet PO ×3 (06:08→21:24)
[2022-04-18] MEDS: Levothyroxine 88 MCG Tablet PO (06:09)
[2022-04-18] MEDS: Cefazolin 1 GM/50 ML BAG IV (06:15)
[2022-04-18] MEDS: oxyCODONE 5 MG Tablet 10 MG PO (06:25)
[2022-04-18 06:35] LABS: Absolute Neutrophil Count 9.3 X10^3/uL (2.0-7.7); Basophil# 0.02 X10^3/uL; Basophil% 0.2 % (0-1); Eosinophil# 0.01 X10^3/uL; Eosinophils% 0.1 % (0-5); Hematocrit 34.9 % (37-47); Hemoglobin 11.5 g/dL (12.0-15.0); Lymphocyte % 6.2 % (19-41); Mean Corpuscular Volume 88.1 fL (81-99); Mean Platelet Vol. 9.9 fl (6.2-12.0); Monocyte# 1.27 X10^3/uL; Monocyte% 11.2 % (0-10); NRBC Flagged by Analyzer 0 % (0-5); Neutrophil # 9.29 X10^3/uL (2.7-7.7); Neutrophil % 81.7 % (47-70); Platelet Count 254 K/mm3 (150-450); RBC Distribution Width CV 14.3 % (11.6-14.6); RBC Distribution Width SD 46.3 fl (35.1-43.9); Red Blood Count 3.96 M/mm3 (4.2-5.4); White Blood Count 11.4 K/mm3 (4.4-11.0)
[2022-04-18 07:33] LABS: Anion Gap 6 (5-15); BUN 25 mg/dL (7-18); BUN/Creat Ratio 46.2 RATIO (10-20); Calcium,Total 8.8 mg/dL (8.5-10.1); Chloride 104 mmol/L (98-107); Creatinine, Serum 0.54 mg/dL (0.55-1.02); EST Glomerular Filtration Rate 114 mL/min (>60); Est Glom Filt Rate - Afr Amer 138 mL/min (>60); Estimated Creatinine Clearance 25.84 ml/min; Glucose 171 mg/dL (74-106); Sodium Level 135 mmol/L (136-145)
--- NOTE | 2022-04-18 07:40 | PCM.PN.ORT ---
Subjective Subjective The patient was sitting in bed upon examination. Patient denies any chest pain, shortness of breath, dizziness, lightheadedness, nausea or vomiting, or calf pain. Pain is controlled on medications. No adverse overnight events. Patient states her pain in the right hip feels better than prior to surgery. She does have pain in the right anterior thigh. Patient also denies any history of previous DVT or pulmonary embolism in the past. Plan is for discharge to the transitional care unit at [facility] pending pre-CERT. Objective Data Objective Data Vital Signs: Vital Signs Temp Pulse Resp BP Pulse Ox 97.3 F L 60 18 148/51 H 99 04/18/22 06:50 04/18/22 06:50 04/18/22 06:50 04/18/22 06:50 04/18/22 06:50 Oxygen Delivery Method Room Air Weight: 38.4 kg Body Mass Index (BMI) 18.5 Intake & Output: Intake and Output for Last 24 Hours 04/16/22 04/17/22 04/18/22 23:59 23:59 23:59 Intake Total 1320 / 1320 496.5 / 616.5 370 / 370 Output Total 100 / 400 550 / 550 Balance 1320 / 1320 396.5 / 216.5 -180 / -180 Medical Nutrition Assessment Dietitian: Malnutrition Criteria Met Start: 04/16/22 11:28 Freq: Status: Active Protocol: Document 04/16/22 11:28 (Rec: 04/16/22 11:28 [id number]) Nutrition Malnutrition Evidence of Malnutrition Exists Yes Malnutrition (moderate): Chronic Evidenced By Suboptimal Energy Intake ( Moderate),Physical Changes ( Mild) Clinical Problem Chronic Disease or Condition Related Malnutrition Etiology moderate, chronic malnutrition r/t inadequate energy intake Signs/Symptoms as evidenced by muscle wasting /fat loss per physical exam in upper extremities, clavicle, acromion, and temporal areas per physical exam; estimated PO intake meeting 75% of estimated energy needs > 3 months; BMI 19.2 Status Active Problem Recommendation Dietitian Recommendations/Changes continue consistent CHO diet; will adjust to 1600 calories/ day; 120mL glucerna ONS 4x/day w/ medpass d/t malnutrition Lab / Micro Data Result Diagrams: 04/18/22 05:34 04/18/22 05:34 Labs: Laboratory Results - last 24 hr 04/17/22 23:19: POC Glucose 275 H 04/18/22 05:34: WBC 11.4 H, RBC 3.96 L, Hgb 11.5 L, Hct 34.9 L, MCV 88.1, MCH 29.0, MCHC 33.0, RDW Std Deviation 46.3 H, RDW Coeff of Obed 14.3, Plt Count 254, MPV 9.9, Immature Gran % (Auto) 0.600, Neut % (Auto) 81.7 H, Lymph % (Auto) 6.2 L, [place] % (Auto) 11.2 H, Eos % (Auto) 0.1, Baso % (Auto) 0.2, Absolute Neuts (auto) 9.3 H, Absolute Lymphs (auto) 0.70 L, Nucleated RBC % 0 04/18/22 05:34: Sodium 135 L, Potassium 4.0, Chloride 104, Carbon Dioxide 25.0, Anion Gap 6, BUN 25 H, Creatinine 0.54 L, Estim Creat Clear Calc 25.84, Est GFR (MDRD) Af Amer 138, Est GFR (MDRD) Non-Af 114, BUN/Creatinine Ratio 46.2 H, Glucose 171 H, Calcium 8.8 Micro: Microbiology 04/15/22 11:00 Nasal Secretion SARS-CoV-2 Antigen (Rapid) - Final Radiography Diagnostic Testing: Radiology Impression Hip X-Ray 04/17/22 16:15 IMPRESSION: Status post right total hip arthroplasty Electronically Signed: Prashanth Caban MD at 16:45 EDT Reading Location ID and State: [address] [place] [address] , Service support , Physical Exam Narrative Vital signs stable and afebrile. Patient is able to plantarflex and dorsiflex actively. Sensation is intact to light touch to saphenous, sural, superficial and deep peroneal, and tibial distribution. Mepilex dressing is clean dry and intact. Negative Homans bilaterally, negative signs and symptoms of DVT. Right thigh is soft and supple SCDs and MIGUELINA hose are in place bilaterally Const alert, oriented x3 and no apparent distress Assessment & Plan Assessment/Plan (1) S/P total right hip arthroplasty: PLAN: 1. S/P right direct anterior total hip arthroplasty POD #1 2. Continue Pain Medications: Tylenol and oxycodone as needed for pain 3. DVT Prophylaxis: Take 81 mg aspirin twice daily for 4 weeks postoperatively for DVT prophylaxis. Patient denies any previous history of DVT or pulmonary embolism in the past. 4. PT/OT: Weightbearing as tolerated with walker. Follow direct anterior precaution with no combination external rotation of the hip with extension. 5. H & H: 11.5/34.9, asymptomatic. Postoperative anemia secondary to acute blood loss from surgery without any intra operative complications. 6. Reactive leukocytosis: Currently 11.4, afebrile. Patient did receive Decadron intraoperatively. No clinical signs of underlying infection. 7. Continue postoperative medical management per medicine: Discussed with the patient to follow recommendations from medicine for postoperative care for her hyponatremia and other medical problems. Will most likely require 2-week follow-up with her primary care physician or possible aged or disabled carer. 8. Encouraged Incentive Spirometry 9. Disposition: Patient appears to be doing well today orthopedically. Would like recommendations from formal physical therapy for discharge planning. Patient does live home alone and will need somewhere for postoperative recovery. Patient is weightbearing as tolerated with walker. Patient will utilize extra strength Tylenol 500 mg 2 tablets twice daily for primary pain control. Oxycodone will be used for breakthrough pain. We discussed transitioning off of narcotics postoperatively. Patient will be on aspirin 81 mg twice daily for 4 weeks postoperatively for DVT prophylaxis. The Mepilex dressing can be removed on April 23, 2022. She is able to shower with this dressing. Once the dressing has been removed she is to only placed gentle soap and water over the incision. No lotions, ointments, tape, Neosporin over the incision. Do not submerge underwater for 6 weeks postoperatively. Postoperative course of treatment was discussed with the patient in detail. All questions were answered. Patient will require 2-week postoperative follow-up with Dr. Magdiel Kline for x-rays of the right hip and incision check. Case management is involved with appropriate discharge planning. I have reviewed the [place] Automated Rx Reporting System (OARRS) report for this patient for refill pattern and other prescriber involvement as part of the appropriate surveillance for the provision of acute and chronic controlled medications. The report was requested and reviewed on the date of this entry and was considered in the prescribing process. This dictation was created using voice recognition software. Phonetic and/or grammatical errors may exist.
[2022-04-18] MEDS: Losartan Potassium 100 MG Tablet PO (09:48)
[2022-04-18] MEDS: Psyllium 1 PACKET PO (09:48)
[2022-04-18] MEDS: Insulin Glargine-YFGN 100 UNIT/ML Pen 6 UNIT SC (09:48)
[2022-04-18] MEDS: Folic Acid 1 MG Tablet PO (09:49)
[2022-04-18] MEDS: Senna/Docusate Sodium 1 Tablet 2 TABLET PO ×2 (09:49→21:24)
[2022-04-18] MEDS: Aspirin 81 MG TAB.CHEW PO ×2 (09:49→17:06)
[2022-04-18] MEDS: Ferrous Sulfate 325 MG Tablet PO (09:49)
[2022-04-18] MEDS: Cholecalciferol (Vit D3) 125 MCG CAPSULE (5,000 UNITS) PO (09:49)
[2022-04-18] MEDS: Mirabegron 25 MG TAB.ER.24H PO (09:49)
[2022-04-18] MEDS: oxyCODONE 5 MG Tablet PO ×2 (09:57→14:44)
[2022-04-18] MEDS: Glucerna Shake 120 ML LIQUID PO ×2 (09:57→14:44)
[2022-04-18] MEDS: Polyethylene Glycol 3350 17 GM PACKET PO (11:44)
[2022-04-18] MEDS: Insulin Lispro 100 UNIT/ML INSULN.PEN SC ×2 (11:46→17:06)
[2022-04-18] MEDS: Bisacodyl 5 MG Tablet PO (14:44)
--- NOTE | 2022-04-18 15:24 | PCM.PN.HOSP ---
Subjective Subjective Patient underwent A. fib RVR during surgery. Discussed with anesthesiologist. From medication review, it seems patient did not get diltiazem or other rate control medication and it got resolved spontaneously. Objective Data Objective Data Vital Signs: Vital Signs Temp Pulse Resp BP Pulse Ox 99.0 F 65 16 135/50 H 100 04/18/22 14:38 04/18/22 14:44 04/18/22 14:38 04/18/22 14:44 04/18/22 14:38 Oxygen Delivery Method Room Air Weight: 84 lb 10.52 oz Body Mass Index (BMI) 18.5 Intake & Output: Intake and Output for Last 24 Hours 04/16/22 04/17/22 04/18/22 23:59 23:59 23:59 Intake Total 1320 / 1320 496.5 / 616.5 370 / 370 Output Total 100 / 400 550 / 550 Balance 1320 / 1320 396.5 / 216.5 -180 / -180 Medical Nutrition Assessment Dietitian: Malnutrition Criteria Met Start: 04/16/22 11:28 Freq: Status: Active Protocol: Document 04/16/22 11:28 (Rec: 04/16/22 11:28 [id number]) Nutrition Malnutrition Evidence of Malnutrition Exists Yes Malnutrition (moderate): Chronic Evidenced By Suboptimal Energy Intake ( Moderate),Physical Changes ( Mild) Clinical Problem Chronic Disease or Condition Related Malnutrition Etiology moderate, chronic malnutrition r/t inadequate energy intake Signs/Symptoms as evidenced by muscle wasting /fat loss per physical exam in upper extremities, clavicle, acromion, and temporal areas per physical exam; estimated PO intake meeting 75% of estimated energy needs > 3 months; BMI 19.2 Status Active Problem Recommendation Dietitian Recommendations/Changes continue consistent CHO diet; will adjust to 1600 calories/ day; 120mL glucerna ONS 4x/day w/ medpass d/t malnutrition Lab / Micro Data Result Diagrams: 04/18/22 05:34 04/18/22 05:34 Labs: Laboratory Results - last 24 hr 04/17/22 23:19: POC Glucose 275 H 04/18/22 05:34: WBC 11.4 H, RBC 3.96 L, Hgb 11.5 L, Hct 34.9 L, MCV 88.1, MCH 29.0, MCHC 33.0, RDW Std Deviation 46.3 H, RDW Coeff of Obed 14.3, Plt Count 254, MPV 9.9, Immature Gran % (Auto) 0.600, Neut % (Auto) 81.7 H, Lymph % (Auto) 6.2 L, [place] % (Auto) 11.2 H, Eos % (Auto) 0.1, Baso % (Auto) 0.2, Absolute Neuts (auto) 9.3 H, Absolute Lymphs (auto) 0.70 L, Nucleated RBC % 0 04/18/22 05:34: Sodium 135 L, Potassium 4.0, Chloride 104, Carbon Dioxide 25.0, Anion Gap 6, BUN 25 H, Creatinine 0.54 L, Estim Creat Clear Calc 25.84, Est GFR (MDRD) Af Amer 138, Est GFR (MDRD) Non-Af 114, BUN/Creatinine Ratio 46.2 H, Glucose 171 H, Calcium 8.8 Micro: Microbiology 04/15/22 11:00 Nasal Secretion SARS-CoV-2 Antigen (Rapid) - Final Radiography Diagnostic Testing: Radiology Impression Hip X-Ray 04/17/22 16:15 IMPRESSION: Status post right total hip arthroplasty Electronically Signed: Prashanth Caban MD at 16:45 EDT Reading Location ID and State: [facility] / [place] , Service support , Physical Exam Narrative Seen and examined. Mild to moderate expected postoperative right hip pain. Patient denies any cough. ekg monitor shows sinus rhythm at 63 bpm. General: Alert, Oriented x3, Cooperative HEENT: Atraumatic, PERRLA, EOMI, Normocephalic Oral: Oral mucosa dry. No Gingival or Mucosal Lesions/ Ulcerations Neck: Supple, No JVD, Negative Carotid Bruits Lungs/chest: Mild dextroscoliosis. Air entry diminished in bilateral lung bases. No crepitation/rhonchi Cardiovascular: Regular rate, Regular Rhythm, Normal S1, Normal S2, systolic murmur over LLSB and cardiac apex Abdomen: Bowel Sounds Present, Soft, Non Tender, Non-Distended : No renal angle tenderness. No suprapubic tenderness. Extremities: No edema, Capillary Refill Less than 3 Seconds Skin: No rashes, No breakdown Musculoskeletal: Right hip tender on movement, ROM very restricted over right hip. On pain medication. Neurological: Cranial nerves II-XII grossly intact, DTR 2+/4 and Symmetrical, Neuro grossly intact Psych/Mental Status: Flat affect. Assessment & Plan Assessment/Plan (1) Avascular necrosis of bone of hip: PLAN: 80-year-old full is being admitted for perioperative optimization for surgery for right hip avascular necrosis 1. Right hip avascular necrosis with severe osteoporosis, marked right dextroscoliosis, degenerative cervical thoracic and lumbar spine: Patient is being admitted on [facility]. QIP surgical risk calculated. It is above average for serious complication, any complication, cardiac complication, pneumonia, SSI, UTI, venous thromboembolism and renal failure. Patient is also high risk for readmission, sepsis, and discharged to SNF. I think patient did not ambulate therefore difficult to calculate exercise capacity but seems less than 4 mets. Incentive spirometry ordered. Heparin subcu for VT prophylaxis ordered. High surgical risk explained to the patient and her friend near the bedside. This was also discussed with mortgage assistant Dr. Raymond advised to continue her home cardiac medications. Twelve-lead EKG normal sinus rhythm 86 bpm, QTC 452 ms. QRS 78 ms. Chest x-ray shows moderate cardiomegaly with marked degree of dextroscoliosis. 04/[address] Bhagat yesterday on 04/15. We discussed about hyponatremia, diabetes mellitus type 2 and her cardiac history. Vitamin D 25-hydroxy 50 normal. Albumin 3.7. 04/17: Plan for right hip arthroplasty. Patient is perioperatively optimized in regards to hyponatremia and hyperglycemia. I also discussed with the mortgage assistant as mentioned below. 04/18: Transient A. fib with RVR spontaneously resolved, probably precipitated by anesthetic medications/hemodynamic changes of fluid shift. Patient does not have history of A. fib. Currently patient is back to the baseline sinus rhythm. Right hip surgical dressing is dry. No hematoma or bruise. Patient doing good with physical therapy. 2. Cardiovascular disease: Valvular heart disease, bilateral carotid artery stenosis, hypertension, dyslipidemia, chronic diastolic heart failure: Last echo 08/18/2020 EF 65% LA severely enlarged, RA moderately enlarged. Mild MR, 1-2+ TR, mild [place]. Also reported small mobile echodensity on aortic side of aortic valve compatible with a small limbal's excrescence. Patient last heart cath in November 2014 reported angiographically normal coronary artery disease. Stress treadmill echo was also normal and negative for ischemia by ECG and echocardiogram but reported very poor exercise capacity for age and test was terminated due to severe dyspnea and fatigue. 04/16 2D echo shows EF 70% severely enlarged right and left atrium. Mild MR, TR with degenerative changes of mitral and aortic valves. I also discussed with Dr. Tena yesterday. Overall echo is suggestive of chronic HFpEF and valvular heart disease. As patient heart rate is on the low 60s therefore will not recommend starting beta-edilson just prior to surgery as some patient might decompensate. Patient denies any chest pain pressure tightness or shortness of breath recently and before during exertion. Last carotid duplex in August 2020 shows more than 70% irregular calcific plaque proximal right ICA, more than 50% right ECA. 50 to 69% proximal left ICA more than 50% left ECA. Patient saw Dr. Enmanuel Matthews for carotid restenosis and was on Plavix before but discontinued probably as preop preparation. I also discussed with Dr. Tena yesterday. Overall echo is suggestive of chronic HFpEF and valvular heart disease. As patient heart rate is on the low 60s therefore will not recommend starting beta-edilson just prior to surgery as some patient might decompensate. 3. Severe protein calorie malnutrition-BMI 18.7 but patient is severely malnourished with loss of subcutaneous fat and atrophy of muscles of extremities. 4. Type 2 diabetes mellitus-patient on insulin glargine and lispro at home along with Januvia. Hold Januvia. Accu-Chek H&H's coverage with Humalog sliding scale. Continue home dose of Lantus insulin 5. Hypothyroidism-continue Synthroid regimen. 6. CKD stage IIIb: Estimated creatinine clearance 32 mL/min although creatinine 0.52. Creatinine low because of low muscle mass. 7. 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 Sodium is 134. The patient outpatient labs showed serum sodium 130, urine sodium 25 and osmolality 277 on April 13, 2020. Glucose was elevated 261 March 2022. Monitor sodium. I think serum sodium is not bad as perioperative requirement. 04/16: Sodium 132. Urine sodium 100, urine osmolality 283, serum sodium 282, TSH and cortisol level normal. As per Dr. Fox her serum sodium was about 340s as an outpatient. Overall clinical and lab features suggestive of SIADH. Nephrology consult reviewed. Patient on fluid restriction. 04/17: Serum sodium 133. [employer] agreed with diagnosis of SIADH. Fluid restriction to be resumed after surgery when hemodynamically stable. After surgery she will be encouraged for to increase solute intake. [employer] recommendation appreciated 04/18: Sodium 135. Continue fluid restriction DVT prophylaxis- Heparin sc 5000 subcutaneous twice daily Total time of the visit including total time spent in counseling or coordination of care, (more than 50% of the total time, spent in obtaining medical information from nurses and other ancillary care providers,explaining to the patient about labs, imaging, diagnosis and management), discussion with the mortgage assistant, review of previous medical record, admission and cardiology visit, review of labs and imaging is 45 minutes. Living will/advanced directive/end of life care: Patient does have living will or advanced directive. His son Mr. Mckinley Redman is next of kin and power of senior attorney for health. After discussion of benefits/risks procedures involved with full code, DNR CC arrest and DNR CC, the patient opted for DNRCC arrest with no intubation Patient does want artificial life support including intubation, tube feed, ventilator and/chest compression, central venous catheter, vasopressor and DC shock if needed Total time spent in [id number] encounter in discussion of advanced directive 16 minutes. Charges/Coding Visit Charges Inpatient E&M: 85597 Subs Hosp L2
[2022-04-18] MEDS: Morphine 2 MG/ML Syringe IV ×2 (17:09→21:22)
[2022-04-18] MEDS: 0.9% Saline Lock 10 ML Syringe IV (21:22)
[2022-04-18] MEDS: amLODIPine 10 MG Tablet PO (21:24)
[2022-04-18] MEDS: Atorvastatin Calcium 10 MG Tablet PO (21:24)
[2022-04-18] MEDS: Heparin Injection (Vial) 5,000 UNIT/ML VIAL 5000 UNIT SC (21:24)
--- NOTE | 2022-04-18 22:28 | NURSING ---
Pt checked her HS blood sugar using her home monitor, 127. No insulin coverage needed. Pt asked for a snack to prevent hypoglycemia overnight.
[2022-04-19] VITALS (12 sets, daily range): BP systolic 124–148; BP diastolic 41–52; PULSE 63–73; RESP 16–18; TEMP 36.1–37.1; O2SAT 95–99
[2022-04-19] MEDS: Morphine 2 MG/ML Syringe IV (00:51)
[2022-04-19] MEDS: 0.9% Saline Lock 10 ML Syringe IV (00:51)
[2022-04-19] MEDS: Acetaminophen 500 MG Tablet 1000 MG PO ×3 (06:24→22:50)
[2022-04-19] MEDS: hydrALAZINE 50 MG Tablet PO ×2 (06:24→22:44)
[2022-04-19] MEDS: oxyCODONE 5 MG Tablet PO ×3 (06:25→16:48)
[2022-04-19] MEDS: Levothyroxine 88 MCG Tablet PO (06:35)
[2022-04-19] MEDS: Glucerna Shake 120 ML LIQUID PO ×3 (08:01→16:52)
[2022-04-19] MEDS: Psyllium 1 PACKET PO (08:01)
[2022-04-19] MEDS: Aspirin 81 MG TAB.CHEW PO ×2 (08:02→16:52)
[2022-04-19] MEDS: Polyethylene Glycol 3350 17 GM PACKET PO (08:02)
[2022-04-19] MEDS: Insulin Glargine-YFGN 100 UNIT/ML Pen 10 UNIT SC (08:02)
[2022-04-19] MEDS: Mirabegron 25 MG TAB.ER.24H PO (08:02)
[2022-04-19] MEDS: Losartan Potassium 100 MG Tablet PO (08:02)
[2022-04-19] MEDS: Folic Acid 1 MG Tablet PO (08:02)
[2022-04-19] MEDS: Senna/Docusate Sodium 1 Tablet 2 TABLET PO ×2 (08:02→22:49)
[2022-04-19] MEDS: Cholecalciferol (Vit D3) 125 MCG CAPSULE (5,000 UNITS) PO (08:02)
[2022-04-19] MEDS: Heparin Injection (Vial) 5,000 UNIT/ML VIAL 5000 UNIT SC ×2 (08:03→22:47)
[2022-04-19 08:05] LABS: Absolute Lymphocyte Count 0.65 X10^3/uL (0.83-4.51); Absolute Neutrophil Count 7.4 X10^3/uL (2.0-7.7); Basophil# 0.04 X10^3/uL; Basophil% 0.4 % (0-1); Eosinophil# 0.09 X10^3/uL; Hematocrit 32.4 % (37-47); Lymphocyte # 0.65 X10^3/ul (0.83-4.51); Lymphocyte % 7.2 % (19-41); Mean Corpuscular Hgb 29.3 pg (27.0-32.0); Mean Corpuscular Volume 86.4 fL (81-99); Mean Platelet Vol. 9.5 fl (6.2-12.0); Monocyte# 0.83 X10^3/uL; Monocyte% 9.2 % (0-10); NRBC Flagged by Analyzer 0 % (0-5); Neutrophil # 7.37 X10^3/uL (2.7-7.7); Neutrophil % 81.6 % (47-70); Platelet Count 219 K/mm3 (150-450); RBC Distribution Width CV 14.1 % (11.6-14.6); RBC Distribution Width SD 44.7 fl (35.1-43.9); Red Blood Count 3.75 M/mm3 (4.2-5.4)
[2022-04-19 08:16] LABS: Anion Gap 7 (5-15); BUN 25 mg/dL (7-18); Calcium,Total 8.7 mg/dL (8.5-10.1); Chloride 101 mmol/L (98-107); Creatinine, Serum 0.46 mg/dL (0.55-1.02); EST Glomerular Filtration Rate 137 mL/min (>60); Est Glom Filt Rate - Afr Amer 165 mL/min (>60); Estimated Creatinine Clearance 30.69 ml/min; Glucose 159 mg/dL (74-106); Potassium 4.2 mmol/L (3.5-5.1); Sodium Level 133 mmol/L (136-145)
--- NOTE | 2022-04-19 08:27 | PN.HOSP_ITS ---
Subjective Subjective Follow-up for right avascular necrosis status post hip replacement. Objective Data Objective Data Vital Signs: Vital Signs Temp Pulse Resp BP Pulse Ox 98.4 F 71 16 148/48 H 99 04/19/22 06:22 04/19/22 07:02 04/19/22 06:22 04/19/22 06:24 04/19/22 06:22 Oxygen Delivery Method Room Air Weight: 100 lb 8.493 oz Body Mass Index (BMI) 18.5 Intake & Output: Intake and Output for Last 24 Hours 04/17/22 04/18/22 04/19/22 23:59 23:59 23:59 Intake Total 496.5 / 616.5 370 / 470 100 / 100 Output Total 100 / 400 550 / 850 1100 / 1100 Balance 396.5 / 216.5 -180 / -380 -1000 / -1000 Medical Nutrition Assessment Dietitian: Malnutrition Criteria Met Start: 04/16/22 11:28 Freq: Status: Active Protocol: Document 04/16/22 11:28 (Rec: 04/16/22 11:28 [id number]) Nutrition Malnutrition Evidence of Malnutrition Exists Yes Malnutrition (moderate): Chronic Evidenced By Suboptimal Energy Intake ( Moderate),Physical Changes ( Mild) Clinical Problem Chronic Disease or Condition Related Malnutrition Etiology moderate, chronic malnutrition r/t inadequate energy intake Signs/Symptoms as evidenced by muscle wasting /fat loss per physical exam in upper extremities, clavicle, acromion, and temporal areas per physical exam; estimated PO intake meeting 75% of estimated energy needs > 3 months; BMI 19.2 Status Active Problem Recommendation Dietitian Recommendations/Changes continue consistent CHO diet; will adjust to 1600 calories/ day; 120mL glucerna ONS 4x/day w/ medpass d/t malnutrition Lab / Micro Data Result Diagrams: 04/19/22 07:45 04/19/22 07:45 Labs: Laboratory Results - last 24 hr 04/19/22 07:45: Sodium 133 L, Potassium 4.2, Chloride 101, Carbon Dioxide 25.0, Anion Gap 7, BUN 25 H, Creatinine 0.46 L, Estim Creat Clear Calc 30.69, Est GFR (MDRD) Af Amer 165, Est GFR (MDRD) Non-Af 137, BUN/Creatinine Ratio 54.0 H, Glucose 159 H, Calcium 8.7 04/19/22 07:45: WBC 9.0, RBC 3.75 L, Hgb 11.0 L, Hct 32.4 L, MCV 86.4, MCH 29.3, MCHC 34.0, RDW Std Deviation 44.7 H, RDW Coeff of Obed 14.1, Plt Count 219, MPV 9.5, Immature Gran % (Auto) 0.600, Neut % (Auto) 81.6 H, Lymph % (Auto) 7.2 L, [place] % (Auto) 9.2, Eos % (Auto) 1.0, Baso % (Auto) 0.4, Absolute Neuts (auto) 7.4, Absolute Lymphs (auto) 0.65 L, Nucleated RBC % 0 Micro: Microbiology 04/15/22 11:00 Nasal Secretion SARS-CoV-2 Antigen (Rapid) - Final Radiography Diagnostic Testing: Radiology Impression Hip X-Ray 04/17/22 16:15 IMPRESSION: Status post right total hip arthroplasty Electronically Signed: Prashanth Caban MD at 16:45 EDT Reading Location ID and State: [facility] / [place] , Service support , Physical Exam Narrative Seen and examined. Mild to moderate expected postoperative right hip pain. In sinus rhythm. Discussed with Ortho PA General: Alert, Oriented x3, Cooperative HEENT: Atraumatic, PERRLA, EOMI, Normocephalic Oral: Oral mucosa moist. No Gingival or Mucosal Lesions/ Ulcerations Neck: Supple, No JVD, Negative Carotid Bruits Lungs/chest: Mild dextroscoliosis. Air entry diminished in bilateral lung bases. No crepitation/rhonchi Cardiovascular: Regular rate, Regular Rhythm, Normal S1, Normal S2, systolic murmur over LLSB and cardiac apex Abdomen: Bowel Sounds Present, Soft, Non Tender, Non-Distended : No renal angle tenderness. No suprapubic tenderness. Extremities: No edema, Capillary Refill Less than 3 Seconds Skin: No rashes, No breakdown Musculoskeletal: Right hip tender on movement, ROM very restricted over right hip. On pain medication. Neurological: Cranial nerves II-XII grossly intact, DTR 2+/4 and Symmetrical, Neuro grossly intact Psych/Mental Status: Flat affect. Assessment & Plan Assessment/Plan (1) Avascular necrosis of bone of hip: PLAN: 80-year-old full is being admitted for perioperative optimization for surgery for right hip avascular necrosis 1. Right hip avascular necrosis with severe osteoporosis, marked right dextroscoliosis, degenerative cervical thoracic and lumbar spine: Patient is being admitted on [facility]. NSQIP surgical risk calculated. It is above average for serious complication, any complication, cardiac complication, pneumonia, SSI, UTI, venous thromboembolism and renal failure. Patient is also high risk for readmission, sepsis, and discharged to SNF. I think patient did not ambulate therefore difficult to calculate exercise capacity but seems less than 4 mets. Incentive spirometry ordered. Heparin subcu for VT prophylaxis ordered. High surgical risk explained to the patient and her friend near the bedside. This was also discussed with splitting machine tender Dr. Raymond advised to continue her home cardiac medications. Twelve-lead EKG normal sinus rhythm 86 bpm, QTC 452 ms. QRS 78 ms. Chest x-ray shows moderate cardiomegaly with marked degree of dextroscoliosis. 04/[address] Bhagat yesterday on 04/15. We discussed about hyponatremia, diabetes mellitus type 2 and her cardiac history. Vitamin D 25- hydroxy 50 normal. Albumin 3.7. 04/17: Plan for right hip arthroplasty. Patient is perioperatively optimized in regards to hyponatremia and hyperglycemia. I also discussed with the splitting machine tender as mentioned below. 04/18: Transient A. fib with RVR spontaneously resolved, probably precipitated by anesthetic medications/hemodynamic changes of fluid shift. Patient does not have history of A. fib. Currently patient is back to the baseline sinus rhythm. Right hip surgical dressing is dry. No hematoma or bruise. Patient doing good with physical therapy. 04/19: Heart rate blood pressure is controlled. Sinus rhythm. Continue PT and OT. Incentive spirometry. 2. Cardiovascular disease: Valvular heart disease, bilateral carotid artery stenosis, hypertension, dyslipidemia, chronic diastolic heart failure: Last echo 08/18/2020 EF 65% LA severely enlarged, RA moderately enlarged. Mild MR, 1-2+ TR, mild [place]. Also reported small mobile echodensity on aortic side of aortic valve compatible with a small limbal's excrescence. Patient last heart cath in November 2014 reported angiographically normal coronary artery disease. Stress treadmill echo was also normal and negative for ischemia by ECG and echocardiogram but reported very poor exercise capacity for age and test was terminated due to severe dyspnea and fatigue. 04/16 2D echo shows EF 70% severely enlarged right and left atrium. Mild MR, TR with degenerative changes of mitral and aortic valves. I also discussed with Dr. Tena yesterday. Overall echo is suggestive of chronic HFpEF and valvular heart disease. As patient heart rate is on the low 60s therefore will not recommend starting beta-edilson just prior to surgery as some patient might decompensate. Patient denies any chest pain pressure tightness or shortness of breath recently and before during exertion. Last carotid duplex in August 2020 shows more than 70% irregular calcific plaque proximal right ICA, more than 50% right ECA. 50 to 69% proximal left ICA more than 50% left ECA. Patient saw Dr. Enmanuel Matthews for carotid restenosis and was on Plavix before but discontinued probably as preop preparation. I also discussed with Dr. Tena yesterday. Overall echo is suggestive of chronic HFpEF and valvular heart disease. As patient heart rate is on the low 60s therefore will not recommend starting beta-edilson just prior to surgery as some patient might decompensate. 3. Severe protein calorie malnutrition-BMI 18.7 but patient is severely malnourished with loss of subcutaneous fat and atrophy of muscles of extremities. 4. Type 2 diabetes mellitus-patient on insulin glargine and lispro at home along with Januvia. Hold Januvia. Accu-Chek H&H's coverage with Humalog sliding scale. Continue home dose of Lantus insulin : Glucose in the range of 1 70-275. Insulin is dosed titrated up. Started on scheduled Humalog insulin and Lantus dose increased 5. Hypothyroidism-continue Synthroid regimen. 6. CKD stage IIIb: Estimated creatinine clearance 32 mL/min although creatinine 0.52. Creatinine low because of low muscle mass. 7. 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 Sodium is 134. The patient outpatient labs showed serum sodium 130, urine sodium 25 and osmolality 277 on April 13, 2020. Glucose was elevated 261 March 2022. Monitor sodium. I think serum sodium is not bad as perioperative requirement. 04/16: Sodium 132. Urine sodium 100, urine osmolality 283, serum sodium 282, TSH and cortisol level normal. As per Dr. Fox her serum sodium was about 340s as an outpatient. Overall clinical and lab features suggestive of SIADH. Nephrology consult reviewed. Patient on fluid restriction. 04/17: Serum sodium 133. [employer] agreed with diagnosis of SIADH. Fluid restriction to be resumed after surgery when hemodynamically stable. After surgery she will be encouraged for to increase solute intake. [employer] recommendation appreciated 04/18: Sodium 135. Continue fluid restriction 04/19: Sodium is on baseline DVT prophylaxis- Heparin sc 5000 subcutaneous twice daily Total time of the visit including total time spent in counseling or coordination of care, (more than 50% of the total time, spent in obtaining medical information from nurses and other ancillary care providers,explaining to the patient about labs, imaging, diagnosis and management), discussion with the splitting machine tender, review of previous medical record, admission and cardiology visit, review of labs and imaging is 45 minutes. Living will/advanced directive/end of life care: Patient does have living will or advanced directive. His son Mr. Mckinley Redman is next of kin and power of manager facility for health. After discussion of benefits/risks procedures involved with full code, DNR CC arrest and DNR CC, the patient opted for DNRCC arrest with no intubation Patient does want artificial life support including intubation, tube feed, ventilator and/chest compression, central venous catheter, vasopressor and DC shock if needed Total time spent in [id number] encounter in discussion of advanced directive 16 minutes. Charges/Coding Visit Charges Inpatient E&M: 08679 Subs Hosp L2
[2022-04-19] MEDS: Insulin Lispro 100 UNIT/ML INSULN.PEN SC ×5 (11:57→22:47)
--- NOTE | 2022-04-19 12:21 | NURSING ---
Blood sugar obtained using pt blood glucose scanner- per pt request, see MAR for coverage and blood sugar
--- NOTE | 2022-04-19 12:23 | NURSING ---
Blood sugar was 270 on patient scanner
--- NOTE | 2022-04-19 16:47 | NURSING ---
Pt checks BS with own glucose scanner, BS is 179 see MAR.
--- NOTE | 2022-04-19 18:46 | PCM.PN.REN ---
Subjective Subjective Following for hyponatremia. There is no new complaints. She denies headache, nausea, or confusion Objective Data Objective Data Vital Signs: Vital Signs Temp Pulse Resp BP Pulse Ox 97.3 F L 65 18 135/52 H 97 04/19/22 15:00 04/19/22 15:02 04/19/22 15:00 04/19/22 16:23 04/19/22 15:00 Oxygen Delivery Method Room Air Weight: 45.6 kg Body Mass Index (BMI) 18.5 Intake & Output: Intake and Output for Last 24 Hours 04/17/22 04/18/22 04/19/22 23:59 23:59 23:59 Intake Total 496.5 / 616.5 370 / 470 1660 / 1660 Output Total 100 / 400 550 / 850 1100 / 1100 Balance 396.5 / 216.5 -180 / -380 560 / 560 Medical Nutrition Assessment Dietitian: Malnutrition Criteria Met Start: 04/16/22 11:28 Freq: Status: Active Protocol: Document 04/16/22 11:28 (Rec: 04/16/22 11:28 [id number]) Nutrition Malnutrition Evidence of Malnutrition Exists Yes Malnutrition (moderate): Chronic Evidenced By Suboptimal Energy Intake ( Moderate),Physical Changes ( Mild) Clinical Problem Chronic Disease or Condition Related Malnutrition Etiology moderate, chronic malnutrition r/t inadequate energy intake Signs/Symptoms as evidenced by muscle wasting /fat loss per physical exam in upper extremities, clavicle, acromion, and temporal areas per physical exam; estimated PO intake meeting 75% of estimated energy needs > 3 months; BMI 19.2 Status Active Problem Recommendation Dietitian Recommendations/Changes continue consistent CHO diet; will adjust to 1600 calories/ day; 120mL glucerna ONS 4x/day w/ medpass d/t malnutrition Lab / Micro Data Result Diagrams: 04/19/22 07:45 04/19/22 07:45 Labs: Laboratory Results - last 24 hr 04/19/22 07:45: Sodium 133 L, Potassium 4.2, Chloride 101, Carbon Dioxide 25.0, Anion Gap 7, BUN 25 H, Creatinine 0.46 L, Estim Creat Clear Calc 30.69, Est GFR (MDRD) Af Amer 165, Est GFR (MDRD) Non-Af 137, BUN/Creatinine Ratio 54.0 H, Glucose 159 H, Calcium 8.7 04/19/22 07:45: WBC 9.0, RBC 3.75 L, Hgb 11.0 L, Hct 32.4 L, MCV 86.4, MCH 29.3, MCHC 34.0, RDW Std Deviation 44.7 H, RDW Coeff of Obed 14.1, Plt Count 219, MPV 9.5, Immature Gran % (Auto) 0.600, Neut % (Auto) 81.6 H, Lymph % (Auto) 7.2 L, Hood % (Auto) 9.2, Eos % (Auto) 1.0, Baso % (Auto) 0.4, Absolute Neuts (auto) 7.4, Absolute Lymphs (auto) 0.65 L, Nucleated RBC % 0 Micro: Microbiology 04/15/22 11:00 Nasal Secretion SARS-CoV-2 Antigen (Rapid) - Final Radiography Diagnostic Testing: Radiology Impression Hip X-Ray 04/17/22 16:15 IMPRESSION: Status post right total hip arthroplasty Electronically Signed: Prashanth Caban MD at 16:45 EDT Reading Location ID and State: [facility] / [place] , Service support , Physical Exam Narrative Const: Alert and oriented x3 HEENT: Head is normocephalic, atraumatic, pupils equal reactive to light, nation, oral mucosa and lips moist Resp: Lung sounds clear anteriorly and posteriorly, no wheezes rhonchi rales noted Cardio: S1, S2, RRR GI: Abdomen soft, nontender, +BSx4 quadrants Extremities: no edema. 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 -Serum sodium has been stable between 133 to 135 mmol/L. The patient does not have any worrisome symptoms of hyponatremia. -Continue to encourage oral protein intake. -Patient does not need tolvaptan, salt tabs or IVF. No need to stop Citalopram at this time.
[2022-04-19] MEDS: Atorvastatin Calcium 10 MG Tablet PO (22:49)
[2022-04-19] MEDS: amLODIPine 10 MG Tablet PO (22:49)
[2022-04-20] VITALS (9 sets, daily range): BP systolic 138–160; BP diastolic 48–69; PULSE 62–92; RESP 12–18; TEMP 36.6–37.1; O2SAT 96–99
[2022-04-20] MEDS: hydrALAZINE 50 MG Tablet PO ×2 (05:19→13:50)
[2022-04-20 05:21] LABS: Absolute Lymphocyte Count 1.07 X10^3/uL (0.83-4.51); Absolute Neutrophil Count 6.5 X10^3/uL (2.0-7.7); Basophil# 0.04 X10^3/uL; Basophil% 0.5 % (0-1); Eosinophil# 0.21 X10^3/uL; Eosinophils% 2.4 % (0-5); Hematocrit 32.8 % (37-47); Lymphocyte # 1.07 X10^3/ul (0.83-4.51); Lymphocyte % 12.5 % (19-41); Mean Corp Hgb Conc 33.5 g/dL (32-36); Mean Corpuscular Hgb 28.8 pg (27.0-32.0); Mean Corpuscular Volume 85.9 fL (81-99); Mean Platelet Vol. 10.1 fl (6.2-12.0); Monocyte# 0.74 X10^3/uL; Monocyte% 8.6 % (0-10); NRBC Flagged by Analyzer 0 % (0-5); Neutrophil # 6.47 X10^3/uL (2.7-7.7); Neutrophil % 75.3 % (47-70); Platelet Count 222 K/mm3 (150-450); RBC Distribution Width CV 14.3 % (11.6-14.6); RBC Distribution Width SD 44.8 fl (35.1-43.9); Red Blood Count 3.82 M/mm3 (4.2-5.4); White Blood Count 8.6 K/mm3 (4.4-11.0)
[2022-04-20] MEDS: Acetaminophen 500 MG Tablet 1000 MG PO ×2 (05:21→13:50)
[2022-04-20] MEDS: Levothyroxine 88 MCG Tablet PO (05:21)
[2022-04-20 05:57] LABS: Anion Gap 5 (5-15); BUN 24 mg/dL (7-18); BUN/Creat Ratio 55.9 RATIO (10-20); Calcium,Total 8.7 mg/dL (8.5-10.1); Chloride 100 mmol/L (98-107); Creatinine, Serum 0.43 mg/dL (0.55-1.02); EST Glomerular Filtration Rate 149 mL/min (>60); Est Glom Filt Rate - Afr Amer 181 mL/min (>60); Estimated Creatinine Clearance 30.69 ml/min; Glucose 170 mg/dL (74-106); Potassium 4.1 mmol/L (3.5-5.1); Sodium Level 132 mmol/L (136-145)
[2022-04-20] MEDS: Insulin Lispro 100 UNIT/ML INSULN.PEN SC ×3 (08:26→11:04)
[2022-04-20] MEDS: Insulin Glargine-YFGN 100 UNIT/ML Pen 13 UNIT SC (08:27)
[2022-04-20] MEDS: Folic Acid 1 MG Tablet PO (08:30)
[2022-04-20] MEDS: Losartan Potassium 100 MG Tablet PO (08:30)
[2022-04-20] MEDS: Aspirin 81 MG TAB.CHEW PO (08:30)
[2022-04-20] MEDS: Ferrous Sulfate 325 MG Tablet PO (08:30)
[2022-04-20] MEDS: Cholecalciferol (Vit D3) 125 MCG CAPSULE (5,000 UNITS) PO (08:32)
[2022-04-20] MEDS: Polyethylene Glycol 3350 17 GM PACKET PO (08:32)
[2022-04-20] MEDS: Senna/Docusate Sodium 1 Tablet 2 TABLET PO (08:32)
[2022-04-20] MEDS: Heparin Injection (Vial) 5,000 UNIT/ML VIAL 5000 UNIT SC (08:32)
[2022-04-20] MEDS: Mirabegron 25 MG TAB.ER.24H PO (08:32)
[2022-04-20] MEDS: Psyllium 1 PACKET PO (08:33)
--- NOTE | 2022-04-20 08:40 | CASEMGMT ---
LUIS ANGEL spoke with Betty in TCU and pre-cert will be initiated. Plan: [facility] pending insurance approval. Kareen RED
[2022-04-20 09:25] LABS: Bedside Glucose 220 mg/dL (74-106)
[2022-04-20] MEDS: oxyCODONE 5 MG Tablet PO (11:02)
--- NOTE | 2022-04-20 11:25 | PCM.PN.REN ---
Subjective Subjective no new events Objective Data Objective Data Vital Signs: Vital Signs Temp Pulse Resp BP Pulse Ox 98.4 F 72 16 152/59 H 96 04/20/22 08:14 04/20/22 08:14 04/20/22 08:14 04/20/22 11:02 04/20/22 08:14 Oxygen Delivery Method Room Air Weight: 50.3 kg Body Mass Index (BMI) 18.5 Intake & Output: Intake and Output for Last 24 Hours 04/18/22 04/19/22 04/20/22 23:59 23:59 23:59 Intake Total 370 / 470 1660 / 1660 Output Total 550 / 850 1100 / 1100 Balance -180 / -380 560 / 560 Medical Nutrition Assessment Dietitian: Malnutrition Criteria Met Start: 04/16/22 11:28 Freq: Status: Active Protocol: Document 04/16/22 11:28 (Rec: 04/16/22 11:28 [id number]) Nutrition Malnutrition Evidence of Malnutrition Exists Yes Malnutrition (moderate): Chronic Evidenced By Suboptimal Energy Intake ( Moderate),Physical Changes ( Mild) Clinical Problem Chronic Disease or Condition Related Malnutrition Etiology moderate, chronic malnutrition r/t inadequate energy intake Signs/Symptoms as evidenced by muscle wasting /fat loss per physical exam in upper extremities, clavicle, acromion, and temporal areas per physical exam; estimated PO intake meeting 75% of estimated energy needs > 3 months; BMI 19.2 Status Active Problem Recommendation Dietitian Recommendations/Changes continue consistent CHO diet; will adjust to 1600 calories/ day; 120mL glucerna ONS 4x/day w/ medpass d/t malnutrition Lab / Micro Data Result Diagrams: 04/20/22 04:30 04/20/22 04:30 Labs: Laboratory Results - last 24 hr 04/20/22 04:30: Sodium 132 L, Potassium 4.1, Chloride 100, Carbon Dioxide 27.0, Anion Gap 5, BUN 24 H, Creatinine 0.43 L, Estim Creat Clear Calc 30.69, Est GFR (MDRD) Af Amer 181, Est GFR (MDRD) Non-Af 149, BUN/Creatinine Ratio 55.9 H, Glucose 170 H, Calcium 8.7 04/20/22 04:30: WBC 8.6, RBC 3.82 L, Hgb 11.0 L, Hct 32.8 L, MCV 85.9, MCH 28.8, MCHC 33.5, RDW Std Deviation 44.8 H, RDW Coeff of Obed 14.3, Plt Count 222, MPV 10.1, Immature Gran % (Auto) 0.700, Neut % (Auto) 75.3 H, Lymph % (Auto) 12.5 L, [place] % (Auto) 8.6, Eos % (Auto) 2.4, Baso % (Auto) 0.5, Absolute Neuts (auto) 6.5, Absolute Lymphs (auto) 1.07, Nucleated RBC % 0 04/20/22 08:23: POC Glucose 220 H Micro: Microbiology 04/15/22 11:00 Nasal Secretion SARS-CoV-2 Antigen (Rapid) - Final Radiography Diagnostic Testing: Radiology Impression Hip/Pelvis X-Ray 04/15/22 11:26 IMPRESSION: Marked degree of joint space narrowing of the right hip joint with findings suggesting avascular necrosis of the femoral head. Electronically Signed: Holland Ferreira MD at 12:20 EDT , Chest X-Ray 04/15/22 11:45 IMPRESSION: Moderate cardiomegaly. Marked degree of dextroscoliosis. Electronically Signed: Holland Ferreira MD at 12:21 EDT , Hip X-Ray 04/17/22 16:15 IMPRESSION: Status post right total hip arthroplasty Electronically Signed: Prashanth Caban MD at 16:45 EDT , Physical Exam Narrative Const: Alert and oriented x3 HEENT: Head is normocephalic, atraumatic, pupils equal reactive to light, nation, oral mucosa and lips moist Resp: Lung sounds clear anteriorly and posteriorly, no wheezes rhonchi rales noted Cardio: S1, S2, RRR GI: Abdomen soft, nontender, +BSx4 quadrants Extremities: no edema. 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 -Serum sodium has been stable between 133 to 135 mmol/L. The patient does not have any worrisome symptoms of hyponatremia. -Continue to encourage oral protein intake. -Patient does not need tolvaptan, salt tabs or IVF.
--- NOTE | 2022-04-20 12:56 | CASEMGMT ---
Patient was approved to go to [facility]. SW notified physician, patient, RN, and real estate legal secretary. Patient has her home Sythroid which she will be taking over to TCU. Plan: d/c to [facility] under skilled level of care.
[2022-04-20] MEDS: Glucerna Shake 120 ML LIQUID PO (13:50)
--- NOTE | 2022-04-20 14:06 | DS.PCM_ITS ---
Providers Date of Admission: 04/15/22 Date of Discharge: 04/20/22 Primary Care Physician: Dr. Karla Bhagat MD Consultations 04/15/22 13:46 Consult: Orthopedics Routine Consulting Provider: Magdiel Kline Reason for Consult: right hip avascular necrosisi EMERGENT Consult: No Notified: Yes Date Notified: 04/15/22 Time Notified: 12:00 Method of Notification: ED Physician Initiated 04/16/22 08:03 Consult: Nephrology Routine Consulting Provider: Levon Nguyen Reason for Consult: Hyponatremia, suspicion of SIADH. EMERGENT Consult: No Notified: Yes Date Notified: 04/16/22 Time Notified: 08:04 Method of Notification: Verbal Reason For Visit: RIGHT HIP AVASCULAR NECROSIS Diagnosis Discharge Diagnosis (1) Hyponatremia with extracellular fluid depletion: Status: Acute Code(s): E87.1 - Hypo-osmolality and hyponatremia (2) Hip pain, right: Status: Acute Code(s): M25.551 - Pain in right hip (3) Depression: Status: Acute Code(s): F32.A - Depression, unspecified (4) Diabetes mellitus: Status: Acute Code(s): E11.9 - Type 2 diabetes mellitus without complications Medications at Discharge Home Medications Synthroid 88 mcg tablet 88 mcg PO DAILY #90 tab NS 07/16/20 rosuvastatin 5 mg tablet 5 mg PO DAILY tab 10/21/20 cholecalciferol (vitamin D3) 125 mcg (5,000 unit) capsule 125 mcg PO DAILY 10/30/20 Januvia 100 mg PO DAILY 09/21/21 losartan 100 mg PO DAILY 09/23/21 hydralazine 50 mg tablet 50 mg PO TID tab 11/04/21 amlodipine 10 mg tablet 10 mg PO QHS 30 Days #30 tab 02/09/22 Myrbetriq 25 mg PO DAILY 04/15/22 acetaminophen 1,000 mg PO Q6H PRN 04/15/22 ferrous sulfate [iron] 325 mg PO BID 04/15/22 folic acid 1 mg PO DAILY 04/15/22 insulin glargine [Lantus Solostar U-100 Insulin] 6 unit SUBCUT BREAKFAST 04/15/22 insulin lispro [Humalog KwikPen Insulin] 3 - 4 sliding scale dose SUBCUT 04/15/22 oxycodone 10 mg PO Q6H PRN PRN 04/15/22 aspirin 81 mg PO BIDCM #0 tab 04/20/22 lactulose 20 g PO DAILY PRN #1200 ml 04/20/22 Hospital Course Operations total hip replacement Procedures 2-D Echocardiogram Summary of Care Provided Minutes Spent on Discharge: 39 Hospital Course: Mrs. Redman is an 81-year-old white female who presented to the emergency department at [facility] on 04/15/2022 for admission in the immediate preoperative period secondary to the fact that she is high risk with a history of diabetes and hard to control blood pressures. She was sent to the em ergency department for admission and was evaluated by Dr. Kline, orthopedic surgery, in the emergency department and the plan was to take her to the operating room on 04/17/2022. 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 She indicated she has had significant difficulty with exercise and functional capacity secondary to her pain and has recently been bed ridden and lying around since approximately November 2021. She was able to climb a few steps with the help of a walker. She followed with Dr. Tena as an outpatient for hypertension and has a known history of carotid artery stenosis for which she follows with Dr. Herve trevizo. She was last admitted in February 2022 secondary to intractable right hip pain. She was seen in consultation by Dr. Kline as noted above and taken the operating room on 04/17/2022 at which time a total right hip arthroplasty was performed. Given her chronic hyponatremia nephrology followed the patient during her hospital course and it was felt stable for her to be operated on from their standpoint. She was medically optimized prior to surgical intervention. The patient did have some transient A. fib with RVR that spontaneously resolved and it was felt to be precipitated by anesthesia and hemodynamic changes of fluid during surgery. She did not have any history of atrial fibrillation and has maintained normal sinus rhythm since that brief episode. Her blood pressure and blood sugars have been well maintained since her admission. She did have some postoperative hyperglycemia which since has resolved. With regards to her sodium is felt that she has chronic SIADH and she is on of chronic fluid restriction which is to be maintained at discharge. Her sodium has been stable. With regards to her postoperative management of her hip she is to continue aspirin 81 mg twice daily for 4 weeks in the postoperative period and then may discontinue this after. She is to be weightbearing as tolerated with a walker and follow direct anterior precautions. The plan is discharge to TCU for continued therapy with recommended follow-up with her primary care physician within the next 4 weeks and follow-up with Dr. Kline for postoperative x-rays and wound assessment in 2 weeks. She was discharged to TCU in stable condition on 02/18/2022. Discharge diagnoses: Avascular necrosis of the right hip Right total hip arthroplasty Postoperative A. 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 Chronic constipation Physical Exam Const alert, oriented x3 and no apparent distress Constitutional Narrative: Thin, elderly white female, sitting up in bed, appears comfortable and nontoxic, very pleasant, watching television General Appearance: cooperative, comfortable, well kempt and well developed Orientation / Consciousness: awake Exam Limitations: no limitations Nutritional Appearance: thin HEENT normocephalic, head/scalp atraumatic, hearing grossly normal bilaterally and moist oral mucous membranes HEENT Narrative: Mallampati 2, no thrush Eyes PERRL, EOMs intact bilaterally and conjunctivae normal Eyes Narrative: No scleral icterus Neck no lymphadenopathy, supple and no JVD Neck Narrative: Trachea midline, no thyroid enlargement Resp normal respiratory effort, no retractions, no use of accessory muscles and clear to auscultation bilaterally Auscultation: Negative for crackles, rales, rhonchi or wheezes Cardio regular rate, regular rhythm, S1 normal heart sound, S2 normal heart sound, no rub, no gallops, no clicks and no JVD Cardio Narrative: 2 out of 6 systolic murmur GI normal to inspection, nondistended, normoactive bowel sounds, soft to palpation, non-tender and non-distended; Negative for hepatosplenomegaly Extremity Extremity Narrative: Trace to 1+ bilateral lower extremity edema-right greater than left, no cyanosis or clubbing Neuro oriented x3, CN's II-XII intact bilaterally, moves all extremities, no focal mot or deficits and no sensory deficits noted Neuro Narrative: Generalized weakness but no focal deficits Sensorium / Orientation: awake and alert Speech: speech normal Psych affect normal Psych Narrative: Extremely pleasant and appropriately interactive Medical Records Data Medical Nutrition Assessment Dietitian: Malnutrition Criteria Met Start: 04/16/22 11:28 Freq: Status: Active Protocol: Document 04/16/22 11:28 (Rec: 04/16/22 11:28 [id number]) Nutrition Malnutrition Evidence of Malnutrition Exists Yes Malnutrition (moderate): Chronic Evidenced By Suboptimal Energy Intake ( Moderate),Physical Changes ( Mild) Clinical Problem Chronic Disease or Condition Related Malnutrition Etiology moderate, chronic malnutrition r/t inadequate energy intake Signs/Symptoms as evidenced by muscle wasting /fat loss per physical exam in upper extremities, clavicle, acromion, and temporal areas per physical exam; estimated PO intake meeting 75% of estimated energy needs > 3 months; BMI 19.2 Status Active Problem Recommendation Dietitian Recommendations/Changes continue consistent CHO diet; will adjust to 1600 calories/ day; 120mL glucerna ONS 4x/day w/ medpass d/t malnutrition Weight / BMI Weight Weight: 50.3 kg Body Mass Index (BMI) 18.5 ABG / Lab / Microbiology Data Result Diagrams: 04/20/22 04:30 04/20/22 04:30 Laboratory: Laboratory Results - last 24 hr 04/20/22 04:30: Sodium 132 L, Potassium 4.1, Chloride 100, Carbon Dioxide 27.0, Anion Gap 5, BUN 24 H, Creatinine 0.43 L, Estim Creat Clear Calc 30.69, Est GFR (MDRD) Af Amer 181, Est GFR (MDRD) Non-Af 149, BUN/Creatinine Ratio 55.9 H, Glucose 170 H, Calcium 8.7 04/20/22 04:30: WBC 8.6, RBC 3.82 L, Hgb 11.0 L, Hct 32.8 L, MCV 85.9, MCH 28.8, MCHC 33.5, RDW Std Deviation 44.8 H, RDW Coeff of Obed 14.3, Plt Count 222, MPV 10.1, Immature Gran % (Auto) 0.700, Neut % (Auto) 75.3 H, Lymph % (Auto) 12.5 L, [place] % (Auto) 8.6, Eos % (Auto) 2.4, Baso % (Auto) 0.5, Absolute Neuts (auto) 6.5, Absolute Lymphs (auto) 1.07, Nucleated RBC % 0 04/20/22 08:23: POC Glucose 220 H Microbiology: Microbiology 04/20/22 13:00 Nasal Secretion SARS-CoV-2 Antigen (Rapid) - Final 04/15/22 11:00 Nasal Secretion SARS-CoV-2 Antigen (Rapid) - Final Radiography Diagnostic Testing: Radiology Impression Hip/Pelvis X-Ray 04/15/22 11:26 IMPRESSION: Marked degree of joint space narrowing of the right hip joint with findings suggesting avascular necrosis of the femoral head. Electronically Signed: Holland Ferreira MD at 12:20 EDT , Chest X-Ray 04/15/22 11:45 IMPRESSION: Moderate cardiomegaly. Marked degree of dextroscoliosis. Electronically Signed: Holland Ferreira MD at 12:21 EDT , Hip X-Ray 04/17/22 16:15 IMPRESSION: Status post right total hip arthroplasty Electronically Signed: Prashanth Caban MD at 16:45 EDT , Meaningful Use Info Meaningful Use Diagnoses (Choose all that apply): None applicable Discharge Plan Admission Admit Date/Time: 04/15/22 12:53 Primary Reason for Your Visit: Right hip pain Attending Provider: Bethany Redman Primary Care Provider: Karla Bhagat Consulting Providers: Magdiel Kline ; Levon Nguyen ; Chalino Mckay Instructions Additional Instructions / Restrictions: Patient is weightbearing as tolerated with walker. Patient will utilize extra strength Tylenol 500 mg 2 tablets twice daily for primary pain control. Oxycodone will be used for breakthrough pain. We discussed transitioning off of narcotics postoperatively. Patient will be on aspirin 81 mg twice daily for 4 weeks postoperatively for DVT prophylaxis. The Mepilex dressing can be removed on April 23, 2022. She is able to shower with this dressing. Once the dressing has been removed she is to only placed gentle soap and water over the incision. No lotions, ointments, tape, Neosporin over the incision. Do not submerge underwater for 6 weeks postoperatively. Postoperative course of treatment was discussed with the patient in detail. All questions were answered. Patient will require 2-week postoperative follow-up with Dr. Magdiel Kline for x-rays of the right hip and incision check. Case management is involved with appropriate discharge planning. Discharge Orders/Prescriptions Prescriptions: New aspirin 81 mg Tablet,Chewable 81 mg PO BIDCM Qty: 0 RF: 0 lactulose 20 gram/30 mL solution 20 g PO DAILY PRN (Reason: constipation) Qty: 1200 RF: 0 Continued levothyroxine [Synthroid] 88 mcg tablet 88 mcg PO DAILY Qty: 90 RF: 3 rosuvastatin 5 mg tablet 5 mg PO DAILY RF: 0 cholecalciferol (vitamin D3) 125 mcg (5,000 unit) capsule 125 mcg PO DAILY RF: 0 hydralazine 50 mg tablet 50 mg PO TID RF: 0 Januvia 100 mg tablet 100 mg PO DAILY RF: 0 losartan 100 mg tablet 100 mg PO DAILY RF: 0 acetaminophen 500 mg Tablet 1,000 mg PO Q6H PRN (Reason: Pain) RF: 0 oxycodone 5 mg tablet 10 mg PO Q6H PRN PRN (Reason: Pain Score 6-10) RF: 0 ferrous sulfate [iron] 325 mg (65 mg iron) Tablet 325 mg PO BID RF: 0 folic acid 1 mg Tablet 1 mg PO DAILY RF: 0 insulin lispro [Humalog KwikPen Insulin] 100 unit/mL insulin pen 3 - 4 sliding scale dose SUBCUT RF: 0 insulin glargine [Lantus Solostar U-100 Insulin] 100 unit/mL (3 mL) insulin pen 6 unit SUBCUT BREAKFAST RF: 0 Myrbetriq 25 mg Tablet Extended Release 24 Hr 25 mg PO DAILY RF: 0 amlodipine 10 mg tablet 10 mg PO QHS 30 Days Qty: 30 RF: 0 Discontinued lactulose 10 gram/15 mL (15 mL) Solution 15 ml PO DAILY PRN (Reason: Constipation) RF: 0 Referrals / Follow Up: Karla Bhagat MD [Primary Care Provider] - Within 1 Month Magdiel Kline MD [STAFF PHYSICIAN] - Within 2 Weeks Disposition Disposition (needs filled in before D/C Order can be placed): [facility] Charges/Coding Visit Charges Inpatient E&M: 52628 SNF Disch >30 Min
--- NOTE | 2022-04-20 14:28 | PCM.TXEXTCAR ---
Diet 04/18/22 07:33 Diet: Consistent Carb - Calorie Controlled Food consistency:: Regular Liquid Consistency:: Regular/Thin Is pt able to select menu?: Yes Fluid restriction:: 1500 mL How many daily calories?: 1600 calorie Routine Orders/Code Status O2 Frequency: PRN Keep PO Greater than or Equal to (%): 92 Routine Lab Work: CBC and BMP Code Status: DNRCC-A (No intubation) Wound(s) RIGHT ANTERIOR HIP: Wound Type: Surgical Incision Therapies Weight Bearing: Weight bearing as tolerated Physical Therapy: Eval and Treat Occupational Therapy: Eval and Treat Problem/Diagnosis (1) Hyponatremia with extracellular fluid depletion: Status: Acute (2) Hip pain, right: Status: Acute (3) Depression: Status: Acute (4) Diabetes mellitus: Status: Acute Allergies/Procedures Done in Hospital Allergies metformin Allergy (Severe, Verified 04/15/22 09:17) Rash neomycin [Neomycin] Allergy (Severe, Verified 04/15/22 09:17) Unknown Tetracyclines Allergy (Severe, Verified 04/15/22 09:17) Anaphylaxis Sulfa (Sulfonamide Antibiotics) Allergy (Verified 04/15/22 09:17) Constipation Procedures: None Type of Care/Length of Stay Estimated LOS: Convalescent Care Less Than 30 days Type of Care Needed: Skilled Rehab Potential: Good Prognosis: Good Additional Orders/Day of Discharge Day of Discharge: 04/20/22 Dietary and Speech Recommendations Dietitian Recommendations/Changes: continue consistent CHO diet; will adjust to 1600 calories/day; 120mL glucerna ONS 4x/day w/ medpass d/t malnutrition Discharge Plan Admission Admit Date/Time: 04/15/22 12:53 Primary Reason for Your Visit: Right hip pain Attending Provider: Bethany Redman Primary Care Provider: Karla Bhagat Consulting Providers: Magdiel Kline ; Levon Nguyen ; Chalino Mckay Instructions Additional Instructions / Restrictions: Patient is weightbearing as tolerated with walker. Patient will utilize extra strength Tylenol 500 mg 2 tablets twice daily for primary pain control. Oxycodone will be used for breakthrough pain. We discussed transitioning off of narcotics postoperatively. Patient will be on aspirin 81 mg twice daily for 4 weeks postoperatively for DVT prophylaxis. The Mepilex dressing can be removed on April 23, 2022. She is able to shower with this dressing. Once the dressing has been removed she is to only placed gentle soap and water over the incision. No lotions, ointments, tape, Neosporin over the incision. Do not submerge underwater for 6 weeks postoperatively. Postoperative course of treatment was discussed with the patient in detail. All questions were answered. Patient will require 2-week postoperative follow-up with Dr. Magdiel Kline for x-rays of the right hip and incision check. Case management is involved with appropriate discharge planning. Discharge Orders/Prescriptions Prescriptions: New aspirin 81 mg Tablet,Chewable 81 mg PO BIDCM Qty: 0 RF: 0 lactulose 20 gram/30 mL solution 20 g PO DAILY PRN (Reason: constipation) Qty: 1200 RF: 0 Continued levothyroxine [Synthroid] 88 mcg tablet 88 mcg PO DAILY Qty: 90 RF: 3 rosuvastatin 5 mg tablet 5 mg PO DAILY RF: 0 cholecalciferol (vitamin D3) 125 mcg (5,000 unit) capsule 125 mcg PO DAILY RF: 0 hydralazine 50 mg tablet 50 mg PO TID RF: 0 Januvia 100 mg tablet 100 mg PO DAILY RF: 0 losartan 100 mg tablet 100 mg PO DAILY RF: 0 acetaminophen 500 mg Tablet 1,000 mg PO Q6H PRN (Reason: Pain) RF: 0 oxycodone 5 mg tablet 10 mg PO Q6H PRN PRN (Reason: Pain Score 6-10) RF: 0 ferrous sulfate [iron] 325 mg (65 mg iron) Tablet 325 mg PO BID RF: 0 folic acid 1 mg Tablet 1 mg PO DAILY RF: 0 insulin lispro [Humalog KwikPen Insulin] 100 unit/mL insulin pen 3 - 4 sliding scale dose SUBCUT RF: 0 insulin glargine [Lantus Solostar U-100 Insulin] 100 unit/mL (3 mL) insulin pen 6 unit SUBCUT BREAKFAST RF: 0 Myrbetriq 25 mg Tablet Extended Release 24 Hr 25 mg PO DAILY RF: 0 amlodipine 10 mg tablet 10 mg PO QHS 30 Days Qty: 30 RF: 0 Discontinued lactulose 10 gram/15 mL (15 mL) Solution 15 ml PO DAILY PRN (Reason: Constipation) RF: 0 Referrals / Follow Up: Karla Bhagat MD [Primary Care Provider] - Within 1 Month Magdiel Kline MD [STAFF PHYSICIAN] - Within 2 Weeks Disposition Disposition (needs filled in before D/C Order can be placed): [facility]
--- NOTE | 2022-04-20 14:38 | CASEMGMT ---
LUIS ANGEL asked patient if she would like LUIS ANGEL to notify anyone about her move to TCU today. Patient said she has already done this. Kareen RED
--- NOTE | 2022-04-20 14:43 | PHA.DC.MR ---
Pharmacy Service has performed discharge medication reconciliation for this patient. The patient's discharge medication list was reviewed for discrepancies and discrepancies were resolved. Home Medications Synthroid 88 mcg tablet 88 mcg PO DAILY #90 tab NS 07/16/20 rosuvastatin 5 mg tablet 5 mg PO DAILY tab 10/21/20 cholecalciferol (vitamin D3) 125 mcg (5,000 unit) capsule 125 mcg PO DAILY 10/30/20 Januvia 100 mg PO DAILY 09/21/21 losartan 100 mg PO DAILY 09/23/21 hydralazine 50 mg tablet 50 mg PO TID tab 11/04/21 amlodipine 10 mg tablet 10 mg PO QHS 30 Days #30 tab 02/09/22 Myrbetriq 25 mg PO DAILY 04/15/22 acetaminophen 1,000 mg PO Q6H PRN 04/15/22 ferrous sulfate [iron] 325 mg PO BID 04/15/22 folic acid 1 mg PO DAILY 04/15/22 insulin glargine [Lantus Solostar U-100 Insulin] 6 unit SUBCUT BREAKFAST 04/15/22 insulin lispro [Humalog KwikPen Insulin] 3 - 4 sliding scale dose SUBCUT 04/15/22 oxycodone 10 mg PO Q6H PRN PRN 04/15/22 aspirin 81 mg PO BIDCM #0 tab 04/20/22 lactulose 20 g PO DAILY PRN #1200 ml 04/20/22
--- NOTE | 2022-04-20 14:53 | NURSING ---
Report called to CLARIBEL Armas RN at 1448.
== END 2022-04-20 16:20 | disposition skilled nursing facility (03) | DRG 470 ==
LOC: ED 12:54 → PCU 15:23
PROVIDERS: Anesthesiology; Specialist; Admitting Provider Internal Medicine; Emergency Provider Student in an Organized Health Care Education/Training Program; PCP Internal Medicine; Visit Provider Internal Medicine
PROC: 0SR904Z Replacement of Right Hip Joint with Ceramic on Polyethylene Synthetic Substitute, Open Approach (ICD-10-PCS; CPT 27284; principal; 2022-04-17 12:35)
DX: M87.051 Idiopathic aseptic necrosis of right femur (principal); E22.2 Syndrome of inappropriate secretion of antidiuretic hormone; D62 Acute posthemorrhagic anemia; I13.0 Hypertensive heart and chronic kidney disease with heart failure and stage 1 through stage 4 chronic kidney disease, or unspecified chronic kidney disease; I50.32 Chronic diastolic (congestive) heart failure; I97.89 Other postprocedural complications and disorders of the circulatory system, not elsewhere classified; Z68.1 Body mass index [BMI] 19.9 or less, adult; R62.7 Adult failure to thrive; E86.1 Hypovolemia; E11.22 Type 2 diabetes mellitus with diabetic chronic kidney disease; I27.20 Pulmonary hypertension, unspecified; I48.91 Unspecified atrial fibrillation; Z79.4 Long term (current) use of insulin; E11.65 Type 2 diabetes mellitus with hyperglycemia; N18.32 Chronic kidney disease, stage 3b; F41.9 Anxiety disorder, unspecified; I65.23 Occlusion and stenosis of bilateral carotid arteries; E78.00 Pure hypercholesterolemia, unspecified; E78.5 Hyperlipidemia, unspecified; E03.9 Hypothyroidism, unspecified; I25.10 Atherosclerotic heart disease of native coronary artery without angina pectoris; K59.09 Other constipation; E55.9 Vitamin D deficiency, unspecified; M51.36 Other intervertebral disc degeneration, lumbar region; M51.34 Other intervertebral disc degeneration, thoracic region; M50.30 Other cervical disc degeneration, unspecified cervical region; M41.9 Scoliosis, unspecified; M16.11 Unilateral primary osteoarthritis, right hip; F32.A Depression, unspecified; M81.0 Age-related osteoporosis without current pathological fracture; Z87.01 Personal history of pneumonia (recurrent); Z79.02 Long term (current) use of antithrombotics/antiplatelets; Z79.899 Other long term (current) drug therapy; Z87.891 Personal history of nicotine dependence; R01.1 Cardiac murmur, unspecified
CPT/HCPCS: 36415; 71045; 73501; 73502; 76000; 80048; 80053; 80061; 82306; 82436; 82533; 82570; 82962; 83735; 83930; 83935; 84133; 84156; 84300; 84443; 85025; 85730; 87426; 87811; 88305; 88311; 93005; 93306; 96374; 96375; 97110; 97116; 97162; 97165; 97166; 97530; 97535; 99251; 99284; 99285; C1776; J7120; A4216; G0463; J2405

== ENCOUNTER 2022-04-20 16:45 | Inpatient (IN) | payer MEDICARE, SELFPAY ==
[2022-04-20 17:07] VITALS: BMI 20.2
[2022-04-20 19:00] VITALS: BP 150/87; PULSE 69; RESP 16; TEMP 36.6; O2SAT 97
--- NOTE | 2022-04-20 20:03 | PCM.HP.STD ---
HPI - General General Date of Admission: 04/20/22 HPI Narrative 04/15/2022 ELLEN ESTRADA, is a 81 Female who presents to [facility] Emergency Department with lower extremity injury. 04/15/2022 EKG normal sinus rhythm, septal infarct, age undetermined. Right hip pain, hurting for 4 months, A1c high, sodium low, not optimized for right hip surgery. Dr. Kline seeing her for avascular necrosis of right hip. Morphine, Zofran given. Chest X-ray showed cardiomegaly, no acute changes. 04/15/2022 Admit to Hospital. Optimize for right total hip replacement surgery. 04/15/2022 Echo Left ventricular systolic function normal. EF 70%. Diastolic dysfunction. 04/16/2022 Consult Renal for hyponatremia secondary to SIADH. 04/17/2022 Fluid restriction for hyponatremia secondary to SIADH. 04/17/2022 Dr. Kline performed right minimally invasive direct anterior total hip replacement. 04/18/2022 Atrial fibrillation with rapid ventricular response during surgery, resolved on its own. Sodium 135, continue fluid restriction. 04/19/2022 PT/OT for debility. Long and short acting insulin for diabetes control. 04/20/2022 Admit to TCU with debility, here for rehabilitation, strengthening, prior to discharge home alone. [facility] Medical History Anxiety Back pain Bilateral carotid bruits Bladder disease Cancer Cardiology follow-up encounter Carotid artery stenosis Carotid stenosis, bilateral Chronic constipation Constipation Depression Diabetes Diabetes mellitus Diabetes mellitus, type II Dietary restriction Dizziness Easy bruising Essential hypertension Heartburn High cholesterol History of CHF (congestive heart failure) History of echocardiogram History of edema History of irregular heartbeat History of pain when walking History of renal disease History of steroid therapy History of stress test Hyperlipidemia Hypothyroidism Injury of head and neck Leg cramps Loss of hearing Osteoporosis Pain Pneumonia Shortness of breath on exertion Syncope Thyroid disease Transaminitis Uses wheelchair Valvular heart disease Wears glasses Wears partial dentures Home Medications Synthroid 88 mcg tablet 88 mcg PO DAILY #90 tab NS 07/16/20 [Rx Last Taken 03/16/22] rosuvastatin 5 mg tablet 5 mg PO DAILY tab 10/21/20 [History Last Taken 03/08/22] cholecalciferol (vitamin D3) 125 mcg (5,000 unit) capsule 125 mcg PO DAILY 10/30/20 [History Last Taken 03/08/22] Januvia 100 mg PO DAILY 09/21/21 [History Last Taken 03/07/22] losartan 100 mg PO DAILY 09/23/21 [History Last Taken 03/08/22] hydralazine 50 mg tablet 50 mg PO TID tab 11/04/21 [History Last Taken 03/16/22] amlodipine 10 mg tablet 10 mg PO QHS 30 Days #30 tab 02/09/22 [Rx Last Taken 03/16/22] Myrbetriq 25 mg PO DAILY 04/15/22 [History Last Taken Unknown] acetaminophen 1,000 mg PO Q6H PRN 04/15/22 [History Last Taken Unknown] ferrous sulfate [iron] 325 mg PO BID 04/15/22 [History Last Taken 04/14/22 17:00] folic acid 1 mg PO DAILY 04/15/22 [History Last Taken Unknown] insulin glargine [Lantus Solostar U-100 Insulin] 6 unit SUBCUT BREAKFAST 04/15/22 [History Last Taken Unknown] insulin lispro [Humalog KwikPen Insulin] 3 - 4 sliding scale dose SUBCUT 04/15/22 [History Last Taken Unknown] oxycodone 10 mg PO Q6H PRN PRN 04/15/22 [History Last Taken Unknown] aspirin 81 mg PO BIDCM 04/20/22 [History Last Taken Unknown] lactulose 20 g PO DAILY PRN #1200 ml 04/20/22 [Rx Last Taken Unknown] Allergy/AdvReac Type Severity Reaction Status Date / Time metformin Allergy Severe Rash Verified 04/15/22 09:17 neomycin [Neomycin] Allergy Severe Unknown Verified 04/15/22 09:17 Tetracyclines Allergy Severe Anaphylaxis Verified 04/15/22 09:17 Sulfa (Sulfonamide Allergy Constipatio Verified 04/15/22 09:17 Antibiotics) n Family History Mother Thyroid disorder Father Alzheimer disease Surgical History History of cardiac catheterization History of foot surgery History of left heart catheterization (12/28/14) History of thyroidectomy History of tonsillectomy and adenoidectomy Hx of colonoscopy Social History household members: none Smoking Status: Former smoker how long ago did patient quit smokin years ago alcohol intake: current alcohol intake frequency: a few times a month Alcohol type: wine substance use type: does not use caffeine: Yes Type: coffee Number of servings: 2 ROS Constitutional Constitutional: Denies chills, fever(s) or weight gain ENT HEENT: Denies headache(s), nasal congestion or nasal discharge Cardiovascular Cardiovascular: Denies chest pain or palpitations Respiratory/Chest Respiratory/Chest: Denies cough, excessive phlegm production or shortness of breath with exertion Gastrointestinal Gastrointestinal: Denies abdominal pain, nausea or vomiting Genitourinary Genitourinary: Denies dysuria Musculoskeletal Musculoskeletal: Reports joint pain; Denies joint swelling Integumentary Integumentary: Denies rash or wounds Neurologic Neurologic: Denies focal weakness, numbness or tingling Psychiatric Psychiatric: Denies anxiety, auditory hallucinations, depression, homicidal ideation or suicidal ideation Vital Signs Vital Signs Vital Signs: 04/20/22 19:00 Temperature 97.9 F Temperature Source Temporal Pulse Rate 69 Respiratory Rate 16 Blood Pressure 150/87 H Blood Pressure Mean 108 Blood Pressure Source Monitor Blood Pressure Position Sitting Blood Pressure Location Right Arm Pulse Ox 97 Oxygen Delivery Method Room Air Physical Exam Const alert General Appearance: cooperative HEENT normocephalic Eyes PERRL and EOMs intact bilaterally Neck supple, no JVD and no carotid bruits Resp normal respiratory effort, normal air movement and clear to auscultation bilaterally Cardio regular rate and regular rhythm GI normal to inspection, nondistended, normoactive bowel sounds, non-tender and non-distended Extremity normal capillary refill General Extremity: Negative for edema Skin no rashes or lesions noted General Skin Exam: no breakdown Psych affect normal Appearance: appropriate Assessment & Plan Assessment/Plan (1) Debility: (2) Avascular necrosis of bone of right hip: (3) S/P total right hip arthroplasty: (4) Hyponatremia: (5) SIADH (syndrome of inappropriate ADH production): (6) Hypothyroidism: (7) Hyperlipidemia: (8) Vitamin D deficiency: (9) Carotid artery stenosis: (10) Diabetes mellitus: (11) Hypertension: (12) Chronic diastolic congestive heart failure: PLAN: 81 year old female with below past medical history hospitalized for avascular necrosis right hip, underwent right total hip replacement 04/17/[address] Kline, complicated by intraoperative atrial fibrillation with rapid ventricular response which resolved spontaneously, hyponatremia, hyperglycemia, admitted to TCU with debility, here for rehabilitation, strengthening, prior to discharge home alone. Debility - PT/OT. Pain - Tylenol 1000mg q6h prn pain (1-5), Oxycodone 10mg q4h prn pain (6-10). Bowel - senna/colace 2 tablets bid, Lactulose 20gm daily prn, Dulcolax 10mg daily prn. Adult immunization - Administer pneumonia vaccine, covid19 vaccine, flu vaccine as appropriate. DVT prophylaxis - Aspirin 81mg bidcm per Orthopedics. Hypertension - Losartan 100mg daily, Hydralazine 50mg tid, Amlodipine 10mg daily. Iron deficiency anemia - Ferrous sulfate 325mg bidcm. Folate deficiency - Folic acid 1mg daily. Nutrition - Glucerna shake 120ml po 4x/day. Diabetes Mellitus II - Tradjenta 5mg qhs, Glargine 6 units qam. Hypothyroidism - Levothyroxine 88mcg daily. Overactive bladder - Myrbetriq 25mg daily. Hyperlipidemia - Rosuvastsatin 5mg qhs. Vitamin D deficiency - D3 1.25mcg daily.
[2022-04-20 21:33] VITALS: BP 166/61; PULSE 76
[2022-04-20] MEDS: oxyCODONE 5 MG Tablet 10 MG PO (21:33)
[2022-04-20] MEDS: amLODIPine 10 MG Tablet PO (21:33)
[2022-04-20] MEDS: hydrALAZINE 50 MG Tablet PO (21:33)
[2022-04-20] MEDS: LINAGLIPTIN 5 MG TABLET PO (21:33)
[2022-04-20] MEDS: Rosuvastatin Calcium 5 MG Tablet PO (21:33)
[2022-04-20] MEDS: Glucerna Shake 120 ML LIQUID PO (21:52)
[2022-04-20 23:58] VITALS: PULSE 76; RESP 16; O2SAT 98
[2022-04-21] MEDS: Acetaminophen 500 MG Tablet 1000 MG PO ×3 (00:51→21:58)
[2022-04-21] MEDS: oxyCODONE 5 MG Tablet 10 MG PO ×4 (01:41→18:24)
[2022-04-21 05:26] VITALS: BP 139/60; PULSE 65
[2022-04-21] MEDS: hydrALAZINE 50 MG Tablet PO ×3 (05:26→21:54)
[2022-04-21] MEDS: Losartan Potassium 100 MG Tablet PO (05:28)
[2022-04-21] MEDS: Senna/Docusate Sodium 1 Tablet 2 TABLET PO ×2 (05:28→17:14)
[2022-04-21] MEDS: Mirabegron 25 MG TAB.ER.24H PO (05:28)
[2022-04-21] MEDS: Cholecalciferol (Vit D3) 125 MCG CAPSULE (5,000 UNITS) PO (05:29)
[2022-04-21] MEDS: Levothyroxine 88 MCG Tablet PO (05:30)
[2022-04-21 05:59] LABS: Absolute Lymphocyte Count 1.13 X10^3/uL (0.83-4.51); Absolute Neutrophil Count 4.5 X10^3/uL (2.0-7.7); Basophil# 0.05 X10^3/uL; Basophil% 0.7 % (0-1); Eosinophil# 0.23 X10^3/uL; Eosinophils% 3.4 % (0-5); Hematocrit 28.5 % (37-47); Hemoglobin 9.3 g/dL (12.0-15.0); Lymphocyte # 1.13 X10^3/ul (0.83-4.51); Lymphocyte % 16.9 % (19-41); Mean Corp Hgb Conc 32.6 g/dL (32-36); Mean Corpuscular Hgb 28.7 pg (27.0-32.0); Mean Platelet Vol. 10.1 fl (6.2-12.0); Monocyte# 0.76 X10^3/uL; Monocyte% 11.4 % (0-10); NRBC Flagged by Analyzer 0 % (0-5); Neutrophil # 4.46 X10^3/uL (2.7-7.7); Platelet Count 221 K/mm3 (150-450); RBC Distribution Width CV 14.2 % (11.6-14.6); RBC Distribution Width SD 45.5 fl (35.1-43.9); Red Blood Count 3.24 M/mm3 (4.2-5.4); White Blood Count 6.7 K/mm3 (4.4-11.0)
[2022-04-21 06:25] LABS: Anion Gap 5 (5-15); BUN 20 mg/dL (7-18); BUN/Creat Ratio 44.3 RATIO (10-20); Calcium,Total 8.2 mg/dL (8.5-10.1); Chloride 100 mmol/L (98-107); Creatinine, Serum 0.45 mg/dL (0.55-1.02); EST Glomerular Filtration Rate 141 mL/min (>60); Est Glom Filt Rate - Afr Amer 170 mL/min (>60); Estimated Creatinine Clearance 33.71 ml/min; Glucose 177 mg/dL (74-106); Potassium 4.2 mmol/L (3.5-5.1); Sodium Level 132 mmol/L (136-145)
[2022-04-21 07:55] LABS: Bedside Glucose 192 mg/dL (74-106)
[2022-04-21] MEDS: Folic Acid 1 MG Tablet PO (08:14)
[2022-04-21] MEDS: Aspirin 81 MG TAB.CHEW PO ×2 (08:14→17:14)
[2022-04-21] MEDS: Ferrous Sulfate 325 MG Tablet PO ×2 (08:14→17:13)
[2022-04-21] MEDS: Insulin Glargine-YFGN 100 UNIT/ML Pen 6 UNIT SC (08:15)
[2022-04-21] MEDS: Glucerna Shake 120 ML LIQUID PO ×3 (10:18→19:50)
[2022-04-21] MEDS: Tuberculin,Purif.prot.deriv. 50 TU/ML Vial 0.1 ML ID (10:19)
[2022-04-21 12:20] LABS: Bedside Glucose 244 mg/dL (74-106)
[2022-04-21 13:52] VITALS: BP 147/73; PULSE 71
[2022-04-21 14:29] VITALS: BP 137/43; PULSE 71; RESP 16; TEMP 37; O2SAT 98
--- NOTE | 2022-04-21 14:41 | CHAPLAIN ---
Type of Pastoral Visit ___ Initial Visit _x__ Follow-up Visit ___ On-call Visit ___ General Patient Visit ___ Spiritual Assessment ___ Family Conference ___ Bereavement ___ Rapid Response ___ Code Blue ___ Other (describe below) Pastoral Care Referral From _x__ Patient ___ Family ___ Nurse ___ Physician ___ Bail Bonding Agent ___ Manager Appointment ___ Other (describe below) Sacrament/Intervention _x__ Active listening ___ Anointing ___ Gnosticist ___ Bereavement ___ Communion ___ Emilie exploration ___ ___ Life review _x__ Prayer ___ Reconciliation ___ Sacrament of Sick _x__ Supportive presence ___ Wedding ___ Other (describe below) Pastoral Comments patient was seen prior to surgery in PCU and this is a follow up of care; pt is talkative and welcoming; pt admits that this has been hard but that she has been so blessed with good health all of her life; pt states that friends and family call and stop in for lots of support; pt welcomes prayer and presence; pt concern is for her spouse
--- NOTE | 2022-04-21 16:55 | PHA.CONS1_ITS ---
Progress Note - Pharmacy Subjective: TCU Admission. Resident presented to [facility] with lower extremity injury and was then admitted. Had a hip replacement on 04/17/22. Admitted to TCU with debility for rehabilitation and strengthening. Objective: Allergies metformin Allergy (Severe, Verified 04/15/22 09:17) Rash neomycin [Neomycin] Allergy (Severe, Verified 04/15/22 09:17) Unknown Tetracyclines Allergy (Severe, Verified 04/15/22 09:17) Anaphylaxis Sulfa (Sulfonamide Antibiotics) Allergy (Verified 04/15/22 09:17) Constipation Current Medications Generic Name Dose Route Start Last Admin Trade Name Freq PRN Reason Stop Dose Admin Acetaminophen 1,000 mg 04/20/22 20:22 04/21/22 14:00 Acetaminophen 500 Mg Tablet PO 1,000 mg Q6H PRN PRN Administration Pain Score 1-5 Amlodipine Besylate 10 mg 04/20/22 22:00 04/20/22 21:33 Amlodipine 10 Mg Tablet PO 10 mg QHS FEDE Administration Aspirin 81 mg 04/21/22 08:00 04/21/22 08:14 Aspirin 81 Mg Tab.Chew PO 81 mg BIDCM FEDE Administration Bisacodyl 10 mg 04/20/22 20:21 Bisacodyl 5 Mg Tablet PO DAILY PRN Constipation Cholecalciferol 125 mcg 04/21/22 06:00 04/21/22 05:29 Cholecalciferol (Vit D3) 125 Mcg Capsule (5,000 Units) PO 125 mcg DAILY FEDE Administration Ferrous Sulfate 325 mg 04/21/22 08:00 04/21/22 08:14 Ferrous Sulfate 325 Mg Tablet PO 325 mg BIDCM FEDE Administration Folic Acid 1 mg 04/21/22 08:00 04/21/22 08:14 Folic Acid 1 Mg Tablet PO 1 mg BREAKFAST FEDE Administration Hydralazine HCl 50 mg 04/20/22 22:00 04/21/22 13:52 Hydralazine 50 Mg Tablet PO 50 mg TID FEDE Administration Insulin Glargine 6 unit 04/21/22 08:00 04/21/22 08:15 Insulin Glargine-Yfgn 100 Unit/Ml Pen SC 6 unit BREAKFAST FEDE Administration Lactulose 20 gm 04/20/22 17:16 Lactulose 20 Gm/30 Ml Udc PO DAILY PRN PRN constipation Levothyroxine Sodium 88 mcg 04/21/22 06:00 04/21/22 05:30 Levothyroxine 88 Mcg Tablet PO 88 mcg DAILY@0600 FEDE Administration Linagliptin 5 mg 04/20/22 22:00 04/20/22 21:33 Linagliptin 5 Mg Tablet PO 5 mg QHS FEDE Administration Losartan Potassium 100 mg 04/21/22 06:00 04/21/22 05:28 Losartan Potassium 100 Mg Tablet PO 100 mg DAILY FEDE Administration Mirabegron 25 mg 04/21/22 06:00 04/21/22 05:28 Mirabegron 25 Mg Tab.Er.24h PO 25 mg DAILY FEDE Administration Nutritional Formula (Lactose Free) 120 ml 04/20/22 22:00 04/21/22 15:24 Glucerna Shake 120 Ml Liquid PO 120 ml 4X/DAY FEDE Administration Oxycodone HCl 10 mg 04/20/22 20:22 04/21/22 14:35 Oxycodone 5 Mg Tablet PO 10 mg Q4H PRN PRN Administration Pain Score 6-10 Rosuvastatin Calcium 5 mg 04/20/22 22:00 04/20/22 21:33 Rosuvastatin Calcium 5 Mg Tablet PO 5 mg QHS FEDE Administration Senna/Docusate Sodium 2 tablet 04/21/22 06:00 04/21/22 05:28 Senna/Docusate Sodium 1 Tablet PO 2 tablet BID FEDE Administration Tuberculin PPD 0.1 ml 04/28/22 10:00 Tuberculin,Purif.Prot.Deriv. 50 Tu/Ml Vial ID 04/28/22 10:01 X1 ONE Problem List (Last Reviewed 04/20/22 @ 20:[address] Sohail Grande MD) Chronic diastolic congestive heart failure (Chronic) Hypertension (Chronic) Diabetes mellitus (Acute) Carotid artery stenosis (Acute) Vitamin D deficiency (Acute) Hyperlipidemia (Acute) Hypothyroidism (Acute) SIADH (syndrome of inappropriate ADH production) (Acute) Hyponatremia (Acute) Avascular necrosis of bone of right hip (Acute) Debility (Acute) S/P total right hip arthroplasty (Acute) Vital Signs Temp Pulse Resp BP Pulse Ox 98.6 F 71 16 137/43 H 98 04/21/22 14:29 04/21/22 14:29 04/21/22 14:29 04/21/22 14:29 04/21/22 14:29 Oxygen Delivery Method Room Air Weight: 48.489 kg Body Mass Index (BMI) 20.2 Sodium 132 mmol/L (136-145) L 04/21/22 05:24 Potassium 4.2 mmol/L (3.5-5.1) 04/21/22 05:24 Chloride 100 mmol/L (98-107) 04/21/22 05:24 Carbon Dioxide 27.0 mmol/L (21.0-32.0) 04/21/22 05:24 Anion Gap 5 (5-15) 04/21/22 05:24 BUN 20 mg/dL (7-18) H 04/21/22 05:24 Creatinine 0.45 mg/dL (0.55-1.02) L 04/21/22 05:24 Est GFR (MDRD) Af Amer 170 mL/min (>60) 04/21/22 05:24 Est GFR (MDRD) Non-Af 141 mL/min (>60) 04/21/22 05:24 BUN/Creatinine Ratio 44.3 RATIO (10-20) H 04/21/22 05:24 Glucose 177 mg/dL (74-106) H 04/21/22 05:24 Assessment/Plan: 1. Pain: acetaminophen 1000mg PO Q6H PRN pain 1-5 and oxycodone 10mg PO Q4H PRN pain 6-10. Resident has reported hip pain ranging from a pain score of 5-9/10. Resident has received 3 doses of acetaminophen and 6 doses of oxycodone. Please continue to monitor for S/S of pain, PRN usage, constipation and respiratory depression. 2. Hypertension: losartan 100mg PO daily, hydralazine 50mg PO TID and amlodipine 10mg PO QHS. Please continue to monitor BP (last 145/82), renal function, potassium (last 4.2mmol/L), headache and swelling. 3. Iron deficiency anemia: ferrous sulfate 325mg PO BIDCM. Please continue to monitor hemoglobin, constipation and dark stools.. 5. Hypothyroidism: levothyroxine 88mcg PO daily. Please continue to monitor TSH (WNL, last 04/16/22) and S/S of hypo/hyperthyroidism. 6. Overactive bladder: mirabegron 25mg PO daily. Please continue to monitor for hypertension and GI side effects. 7. Hyperlipidemia: rosuvastatin 5mg PO QHS. Please continue to monitor lipid panel (last 04/15/22) at least annually or as clinically indicated and muscle pain. 8. Folate and vitamin D deficiencies: folic acid 1mg PO DAILYCM and cholecalciferol 125mcg PO daily. Please continue to monitor vitamin D levels (last 04/15/22) at least annually. Psychotropic Medications: None Medications Irregularities: *1. DVT prophylaxis: aspirin 81mg PO BIDCM. Per note from inpatient admission, orthopedics PA recommended aspirin 81mg PO BIDCM for 4 weeks post-operatively. Please consider adding a stop date. Thanks. Please continue to monitor for S/S o f bleeding/DVT and hemoglobin (last 9.3g/dL). *2. Diabetes mellitus II: linagliptin 5mg PO QHS and insulin glargine 6units SC breakfast. Please consider ordering a hemoglobin A1c now and then every 3 months or as clinically appropriate. Resident does not have an A1c in the chart. Thanks. Please continue to monitor for S/S of hypoglycemia, glucose (last 195mg/dL), diarrhea and joint pain Bowel Regimen: senna/docusate 2T PO BID, lactulose 20gm PO daily PRN constipation and bisacodyl 10mg PO daily PRN constipation. Please continue to monitor for S/S of constipation/diarrhea and PRN usage. Date of Note:: 04/22/22
[2022-04-21 17:30] LABS: Bedside Glucose 211 mg/dL (74-106)
[2022-04-21 21:51] LABS: Bedside Glucose 248 mg/dL (74-106)
[2022-04-21 21:54] VITALS: BP 134/51; PULSE 70
[2022-04-21] MEDS: Rosuvastatin Calcium 5 MG Tablet PO (21:55)
[2022-04-21] MEDS: LINAGLIPTIN 5 MG TABLET PO (21:59)
[2022-04-21] MEDS: amLODIPine 10 MG Tablet PO (21:59)
[2022-04-22] MEDS: oxyCODONE 5 MG Tablet 10 MG PO ×4 (03:21→21:33)
[2022-04-22 06:20] VITALS: BP 145/82; PULSE 71
[2022-04-22] MEDS: Losartan Potassium 100 MG Tablet PO (06:20)
[2022-04-22] MEDS: Cholecalciferol (Vit D3) 125 MCG CAPSULE (5,000 UNITS) PO (06:20)
[2022-04-22] MEDS: Senna/Docusate Sodium 1 Tablet 2 TABLET PO ×2 (06:20→17:29)
[2022-04-22] MEDS: hydrALAZINE 50 MG Tablet PO ×3 (06:20→21:35)
[2022-04-22] MEDS: Mirabegron 25 MG TAB.ER.24H PO (06:20)
[2022-04-22] MEDS: Levothyroxine 88 MCG Tablet PO (06:28)
[2022-04-22 06:31] LABS: Bedside Glucose 195 mg/dL (74-106)
[2022-04-22] MEDS: Aspirin 81 MG TAB.CHEW PO ×2 (08:45→17:29)
[2022-04-22] MEDS: Folic Acid 1 MG Tablet PO (08:46)
[2022-04-22] MEDS: Glucerna Shake 120 ML LIQUID PO ×4 (08:46→21:37)
[2022-04-22] MEDS: Ferrous Sulfate 325 MG Tablet PO ×2 (08:46→17:29)
[2022-04-22] MEDS: Insulin Glargine-YFGN 100 UNIT/ML Pen 6 UNIT SC (08:47)
[2022-04-22 10:56] LABS: Bedside Glucose 213 mg/dL (74-106)
[2022-04-22] MEDS: Acetaminophen 500 MG Tablet 1000 MG PO ×2 (11:33→21:34)
--- NOTE | 2022-04-22 12:42 | NURSING ---
Assisted to bathroom. She is requesting that she get miralax when she has her 1400 tylenol. Resident made aware that TCU staff member tested positive for Covid.
[2022-04-22 15:11] VITALS: PULSE 60
[2022-04-22 15:18] VITALS: BP 144/49; PULSE 68; RESP 15; TEMP 36.7; O2SAT 97
[2022-04-22 16:16] LABS: Bedside Glucose 229 mg/dL (74-106)
--- NOTE | 2022-04-22 16:47 | CASEMGMT ---
Social Work Met with patient to complete initial assessment. Introduced self and role. Discussed code status and MOLST form. Pt confirms DNR-CCA, no intubation, as DNR form on file states. No changes to MOLST form on file. Printed both forms and placed on hard chart. Notified nursing to change order. Explained to pt [facility] insurance with [employer]D 04/24 and continued stay is not guaranteed with each review. The goal is for pt to return home alone with 2 steps to enter. Pt states she plans to hire assistance to come into to help her with the transition home. Pt already has aids that she can call - denied JUNIOR SALES ASSISTANT list from . SW to continue to follow for DC planning. Delilah Rushing, ANESTHESIA TECHNICIAN VERIFYING SPECIALIST
[2022-04-22] MEDS: Lactulose 20 GM/30 ML UDC PO (19:20)
[2022-04-22 19:30] VITALS: PULSE 70; RESP 16; O2SAT 97
[2022-04-22 21:32] VITALS: BP 148/42; PULSE 67
[2022-04-22 21:35] VITALS: PULSE 67
[2022-04-22] MEDS: Rosuvastatin Calcium 5 MG Tablet PO (21:35)
[2022-04-22] MEDS: LINAGLIPTIN 5 MG TABLET PO (21:36)
[2022-04-22] MEDS: amLODIPine 10 MG Tablet PO (21:36)
[2022-04-22 21:46] LABS: Bedside Glucose 210 mg/dL (74-106)
[2022-04-23 05:56] LABS: Hematocrit 29.1 % (37-47); Hemoglobin 9.7 g/dL (12.0-15.0)
[2022-04-23 06:29] VITALS: BP 132/52; PULSE 65
[2022-04-23 06:30] LABS: Bedside Glucose 189 mg/dL (74-106)
[2022-04-23] MEDS: Senna/Docusate Sodium 1 Tablet 2 TABLET PO ×2 (06:31→18:18)
[2022-04-23] MEDS: oxyCODONE 5 MG Tablet 10 MG PO ×4 (06:31→20:03)
[2022-04-23] MEDS: Losartan Potassium 100 MG Tablet PO (06:31)
[2022-04-23] MEDS: Acetaminophen 500 MG Tablet 1000 MG PO ×3 (06:31→23:04)
[2022-04-23 06:32] VITALS: PULSE 65
[2022-04-23] MEDS: Mirabegron 25 MG TAB.ER.24H PO (06:32)
[2022-04-23] MEDS: hydrALAZINE 50 MG Tablet PO ×3 (06:32→23:05)
[2022-04-23] MEDS: Cholecalciferol (Vit D3) 125 MCG CAPSULE (5,000 UNITS) PO (06:32)
[2022-04-23] MEDS: Levothyroxine 88 MCG Tablet PO (06:34)
[2022-04-23] MEDS: Glucerna Shake 120 ML LIQUID PO ×4 (06:35→23:12)
[2022-04-23] MEDS: Insulin Glargine-YFGN 100 UNIT/ML Pen 6 UNIT SC (08:32)
[2022-04-23] MEDS: Aspirin 81 MG TAB.CHEW PO ×2 (08:32→18:17)
[2022-04-23] MEDS: Folic Acid 1 MG Tablet PO (08:32)
[2022-04-23] MEDS: Ferrous Sulfate 325 MG Tablet PO ×2 (08:32→18:17)
[2022-04-23] MEDS: Bisacodyl 5 MG Tablet 10 MG PO (08:39)
[2022-04-23 09:29] VITALS: PULSE 68; RESP 14; O2SAT 98
--- NOTE | 2022-04-23 11:12 | PCA ---
Patients sugar was 233 at 11:13am
[2022-04-23 12:56] VITALS: PULSE 68
--- NOTE | 2022-04-23 14:11 | MDS.RN ---
Pain interview for nuno 04/27/22 completed.
[2022-04-23 14:52] VITALS: BP 136/77; PULSE 71; RESP 16; TEMP 36.9; O2SAT 95
--- NOTE | 2022-04-23 16:45 | SUR.OPER ---
patients sugar was 107 at 4:30pm
[2022-04-23 23:05] VITALS: BP 160/65; PULSE 78
[2022-04-23] MEDS: amLODIPine 10 MG Tablet PO (23:05)
[2022-04-23] MEDS: Rosuvastatin Calcium 5 MG Tablet PO (23:06)
[2022-04-23] MEDS: LINAGLIPTIN 5 MG TABLET PO (23:06)
--- NOTE | 2022-04-23 23:10 | PCA ---
HS Blood sugar at 2100 was 178.
--- NOTE | 2022-04-24 06:36 | PCA ---
patient blood sugar 6:00am 158
[2022-04-24] MEDS: Losartan Potassium 100 MG Tablet PO (06:56)
[2022-04-24] MEDS: Senna/Docusate Sodium 1 Tablet 2 TABLET PO ×2 (06:57→16:45)
[2022-04-24] MEDS: Mirabegron 25 MG TAB.ER.24H PO (06:57)
[2022-04-24] MEDS: Cholecalciferol (Vit D3) 125 MCG CAPSULE (5,000 UNITS) PO (06:57)
[2022-04-24 07:00] VITALS: BP 159/68; PULSE 77
[2022-04-24] MEDS: hydrALAZINE 50 MG Tablet PO ×3 (07:00→20:59)
[2022-04-24] MEDS: Glucerna Shake 120 ML LIQUID PO ×4 (07:06→21:10)
[2022-04-24] MEDS: oxyCODONE 5 MG Tablet 10 MG PO ×4 (07:07→20:54)
[2022-04-24] MEDS: Levothyroxine 88 MCG Tablet PO (07:07)
[2022-04-24] MEDS: Acetaminophen 500 MG Tablet 1000 MG PO ×2 (07:08→20:54)
[2022-04-24] MEDS: Insulin Glargine-YFGN 100 UNIT/ML Pen 6 UNIT SC (08:33)
[2022-04-24] MEDS: Folic Acid 1 MG Tablet PO (08:35)
[2022-04-24] MEDS: Ferrous Sulfate 325 MG Tablet PO ×2 (08:35→16:45)
[2022-04-24] MEDS: Aspirin 81 MG TAB.CHEW PO ×2 (08:35→16:46)
[2022-04-24 13:09] VITALS: BP 134/60; PULSE 70
--- NOTE | 2022-04-24 13:11 | NURSING ---
Patient told this nurse she was able to speak with her doctor about getting COVID booster. Doctor says she is due and is okay to receive booster.
--- NOTE | 2022-04-24 14:53 | CASEMGMT ---
Social Work Insurance issued LCD 04/29, DC 04/30. Spoke with pt and she is agreeable. Pt requesting [facility]. Referral made for PT/OT/SN. No DME. Son to transport. BIMS and PHQ-9 completed for MDS assessment. Plan: DC home alone 04/30, [facility] PT/OT/SN Delilah Rushing ,PAULA CADETW
[2022-04-24 16:32] VITALS: BP 134/54; PULSE 70; RESP 16; TEMP 36.6; O2SAT 90
[2022-04-24 20:59] VITALS: BP 151/58; PULSE 76
[2022-04-24] MEDS: Rosuvastatin Calcium 5 MG Tablet PO (20:59)
[2022-04-24] MEDS: LINAGLIPTIN 5 MG TABLET PO (20:59)
[2022-04-24] MEDS: amLODIPine 10 MG Tablet PO (21:00)
--- NOTE | 2022-04-24 21:17 | NURSING ---
Blood sugar per Freestyle is 244.
[2022-04-25] MEDS: oxyCODONE 5 MG Tablet 10 MG PO ×4 (04:10→21:56)
[2022-04-25 06:09] VITALS: BP 144/69; PULSE 69
[2022-04-25] MEDS: Losartan Potassium 100 MG Tablet PO (06:09)
[2022-04-25] MEDS: Cholecalciferol (Vit D3) 125 MCG CAPSULE (5,000 UNITS) PO (06:09)
[2022-04-25] MEDS: Senna/Docusate Sodium 1 Tablet 2 TABLET PO ×2 (06:09→16:46)
[2022-04-25] MEDS: Mirabegron 25 MG TAB.ER.24H PO (06:09)
[2022-04-25] MEDS: hydrALAZINE 50 MG Tablet PO ×3 (06:09→21:57)
[2022-04-25] MEDS: Levothyroxine 88 MCG Tablet PO (06:10)
[2022-04-25] MEDS: Bisacodyl 5 MG Tablet 10 MG PO (06:13)
[2022-04-25] MEDS: Folic Acid 1 MG Tablet PO (08:16)
[2022-04-25] MEDS: Aspirin 81 MG TAB.CHEW PO ×2 (08:16→16:42)
[2022-04-25] MEDS: Ferrous Sulfate 325 MG Tablet PO ×2 (08:17→16:42)
[2022-04-25] MEDS: Insulin Glargine-YFGN 100 UNIT/ML Pen 6 UNIT SC (08:17)
[2022-04-25] MEDS: Glucerna Shake 120 ML LIQUID PO ×2 (10:43→16:46)
--- NOTE | 2022-04-25 11:21 | NURSING ---
Addendum entered by Haydee Rey 04/25/22 14:18: Dr. Loomis entered orders for Gabapentin and cream. Original Note: Dr. Bhagat stopped into see pt this AM. Dr. Bhagat concerned with pt going home and would like to to go to a step down rehab at [facility]. Per Olayinka, pt agrreable and would like RN to notify SW. Dr. Bhagat reported to RN she observed Rt hip incision. Per Dr. Bhagat, she is concerned increased pain to right hip maybe nerve pain with hx scoliosis. Per Olayinka, she will contact Dr. Grande on Wednesday with patient concerns. Dr. Loomis notified.
--- NOTE | 2022-04-25 11:30 | PCA ---
patient sugar was 190 at 11:25am
[2022-04-25 13:28] VITALS: BP 143/53; PULSE 75
[2022-04-25 16:00] VITALS: BP 137/55; PULSE 78; RESP 16; TEMP 36.8; O2SAT 95
--- NOTE | 2022-04-25 16:25 | NURSING ---
Blood sugar at 16:20 was 173.
[2022-04-25] MEDS: Gabapentin 100 MG Capsule PO (16:43)
[2022-04-25] MEDS: Neuropathy Pain Cream Compound 60 CLICK TUBE TOPICAL (16:46)
--- NOTE | 2022-04-25 17:18 | SUR.OPER ---
patients sugar was 173 at 1620
[2022-04-25 21:50] VITALS: BP 130/58; PULSE 67
[2022-04-25] MEDS: Acetaminophen 500 MG Tablet 1000 MG PO (21:56)
[2022-04-25 21:57] VITALS: PULSE 67
[2022-04-25] MEDS: LINAGLIPTIN 5 MG TABLET PO (21:57)
[2022-04-25] MEDS: Rosuvastatin Calcium 5 MG Tablet PO (21:58)
[2022-04-25] MEDS: amLODIPine 10 MG Tablet PO (21:58)
[2022-04-26] MEDS: Cholecalciferol (Vit D3) 125 MCG CAPSULE (5,000 UNITS) PO (06:12)
[2022-04-26] MEDS: Mirabegron 25 MG TAB.ER.24H PO (06:13)
[2022-04-26] MEDS: Senna/Docusate Sodium 1 Tablet 2 TABLET PO ×2 (06:13→17:23)
[2022-04-26] MEDS: Levothyroxine 88 MCG Tablet PO (06:13)
[2022-04-26 06:14] VITALS: PULSE 67
[2022-04-26] MEDS: Losartan Potassium 100 MG Tablet PO (06:14)
[2022-04-26] MEDS: hydrALAZINE 50 MG Tablet PO ×3 (06:14→21:00)
[2022-04-26] MEDS: Neuropathy Pain Cream Compound 60 CLICK TUBE TOPICAL ×2 (06:14→17:22)
--- NOTE | 2022-04-26 06:39 | PCA ---
patient scanned arm and Glucose reading was 148
[2022-04-26] MEDS: Aspirin 81 MG TAB.CHEW PO ×2 (08:01→17:21)
[2022-04-26] MEDS: Ferrous Sulfate 325 MG Tablet PO ×2 (08:01→17:21)
[2022-04-26] MEDS: Folic Acid 1 MG Tablet PO (08:02)
[2022-04-26] MEDS: Insulin Glargine-YFGN 100 UNIT/ML Pen 6 UNIT SC (08:02)
[2022-04-26] MEDS: Gabapentin 100 MG Capsule PO ×2 (08:06→17:20)
[2022-04-26] MEDS: oxyCODONE 5 MG Tablet 10 MG PO ×3 (11:17→20:59)
[2022-04-26] MEDS: Acetaminophen 500 MG Tablet 1000 MG PO ×2 (11:22→21:00)
[2022-04-26] MEDS: Glucerna Shake 120 ML LIQUID PO ×3 (12:28→20:59)
[2022-04-26 14:13] VITALS: PULSE 72
[2022-04-26 16:00] VITALS: BP 127/54; PULSE 69; RESP 16; TEMP 37; O2SAT 93
--- NOTE | 2022-04-26 17:17 | PCA ---
patient sugar was 237 at 1600
[2022-04-26 20:56] VITALS: BP 142/54; PULSE 66
[2022-04-26 21:00] VITALS: PULSE 66
[2022-04-26] MEDS: amLODIPine 10 MG Tablet PO (21:01)
[2022-04-26] MEDS: Rosuvastatin Calcium 5 MG Tablet PO (21:01)
[2022-04-26] MEDS: LINAGLIPTIN 5 MG TABLET PO (21:02)
[2022-04-26 21:24] VITALS: PULSE 65; RESP 16; O2SAT 98
[2022-04-27 06:13] VITALS: BP 143/45; PULSE 67
[2022-04-27] MEDS: Senna/Docusate Sodium 1 Tablet 2 TABLET PO ×2 (06:15→17:40)
[2022-04-27 06:16] VITALS: PULSE 67
[2022-04-27] MEDS: Neuropathy Pain Cream Compound 60 CLICK TUBE TOPICAL ×2 (06:16→22:44)
[2022-04-27] MEDS: Losartan Potassium 100 MG Tablet PO (06:16)
[2022-04-27] MEDS: Mirabegron 25 MG TAB.ER.24H PO (06:16)
[2022-04-27] MEDS: hydrALAZINE 50 MG Tablet PO ×2 (06:16→13:19)
[2022-04-27] MEDS: Cholecalciferol (Vit D3) 125 MCG CAPSULE (5,000 UNITS) PO (06:17)
[2022-04-27] MEDS: Levothyroxine 88 MCG Tablet PO (06:18)
[2022-04-27] MEDS: oxyCODONE 5 MG Tablet 10 MG PO ×3 (06:20→22:43)
[2022-04-27] MEDS: Folic Acid 1 MG Tablet PO (07:54)
[2022-04-27] MEDS: Aspirin 81 MG TAB.CHEW PO ×2 (07:54→16:13)
[2022-04-27] MEDS: Ferrous Sulfate 325 MG Tablet PO ×2 (07:54→16:13)
[2022-04-27] MEDS: Insulin Glargine-YFGN 100 UNIT/ML Pen 8 UNIT SC (07:55)
[2022-04-27] MEDS: Gabapentin 100 MG Capsule PO ×2 (09:11→16:15)
[2022-04-27 09:55] VITALS: PULSE 77; RESP 20; TEMP 37; O2SAT 97
[2022-04-27] MEDS: Acetaminophen 500 MG Tablet 1000 MG PO ×2 (10:00→16:10)
[2022-04-27] MEDS: Glucerna Shake 120 ML LIQUID PO ×2 (11:23→16:11)
[2022-04-27 13:15] VITALS: BP 139/46
[2022-04-27 13:19] VITALS: PULSE 69
--- NOTE | 2022-04-27 21:26 | PCA ---
215 blood sugar at HS
[2022-04-27 22:42] VITALS: BP 130/46; PULSE 69
[2022-04-27] MEDS: Rosuvastatin Calcium 5 MG Tablet PO (22:45)
[2022-04-27] MEDS: amLODIPine 10 MG Tablet PO (22:46)
[2022-04-27] MEDS: LINAGLIPTIN 5 MG TABLET PO (22:46)
[2022-04-28] MEDS: Levothyroxine 88 MCG Tablet PO (05:28)
[2022-04-28] MEDS: Mirabegron 25 MG TAB.ER.24H PO (05:29)
[2022-04-28] MEDS: Senna/Docusate Sodium 1 Tablet 2 TABLET PO ×2 (05:29→16:35)
[2022-04-28] MEDS: Losartan Potassium 100 MG Tablet PO (05:29)
[2022-04-28] MEDS: Neuropathy Pain Cream Compound 60 CLICK TUBE TOPICAL ×2 (05:30→16:36)
[2022-04-28] MEDS: oxyCODONE 5 MG Tablet 10 MG PO ×4 (05:33→22:43)
[2022-04-28 05:36] VITALS: BP 151/53; PULSE 67
[2022-04-28] MEDS: hydrALAZINE 50 MG Tablet PO ×3 (05:36→21:34)
--- NOTE | 2022-04-28 05:47 | NURSING ---
Blood glucose 170 this am per adinayle jeff.
[2022-04-28 06:00] LABS: Absolute Neutrophil Count 3.7 X10^3/uL (2.0-7.7); Basophil% 1.6 % (0-1); Eosinophil# 0.48 X10^3/uL; Eosinophils% 7.5 % (0-5); Hematocrit 29.9 % (37-47); Hemoglobin 9.9 g/dL (12.0-15.0); Lymphocyte % 20.2 % (19-41); Mean Corp Hgb Conc 33.1 g/dL (32-36); Mean Corpuscular Hgb 28.7 pg (27.0-32.0); Mean Corpuscular Volume 86.7 fL (81-99); Mean Platelet Vol. 9.6 fl (6.2-12.0); Monocyte# 0.75 X10^3/uL; Monocyte% 11.6 % (0-10); NRBC Flagged by Analyzer 0 % (0-5); Neutrophil # 3.66 X10^3/uL (2.7-7.7); Neutrophil % 56.8 % (47-70); Platelet Count 333 K/mm3 (150-450); RBC Distribution Width CV 14.2 % (11.6-14.6); RBC Distribution Width SD 44.6 fl (35.1-43.9); Red Blood Count 3.45 M/mm3 (4.2-5.4); White Blood Count 6.4 K/mm3 (4.4-11.0)
[2022-04-28 06:36] LABS: Anion Gap 6 (5-15); BUN 24 mg/dL (7-18); BUN/Creat Ratio 47.9 RATIO (10-20); Calcium,Total 9.1 mg/dL (8.5-10.1); Chloride 99 mmol/L (98-107); EST Glomerular Filtration Rate 125 mL/min (>60); Est Glom Filt Rate - Afr Amer 151 mL/min (>60); Estimated Creatinine Clearance 32.63 ml/min; Glucose 185 mg/dL (74-106); Potassium 4.6 mmol/L (3.5-5.1); Sodium Level 130 mmol/L (136-145)
--- NOTE | 2022-04-28 07:50 | NURSING ---
No Vitamin D in med box in room or in accudose for am med pass. Communication sent to pharmacy.
[2022-04-28] MEDS: Aspirin 81 MG TAB.CHEW PO ×2 (07:59→16:35)
[2022-04-28] MEDS: Cholecalciferol (Vit D3) 125 MCG CAPSULE (5,000 UNITS) PO (07:59)
[2022-04-28] MEDS: Folic Acid 1 MG Tablet PO (07:59)
[2022-04-28] MEDS: Ferrous Sulfate 325 MG Tablet PO ×2 (08:02→16:35)
[2022-04-28] MEDS: Gabapentin 100 MG Capsule PO ×2 (08:02→16:30)
[2022-04-28] MEDS: Insulin Glargine-YFGN 100 UNIT/ML Pen 8 UNIT SC (08:04)
[2022-04-28] MEDS: Acetaminophen 500 MG Tablet 1000 MG PO ×3 (10:15→22:34)
[2022-04-28] MEDS: Tuberculin,Purif.prot.deriv. 50 TU/ML Vial 0.1 ML ID (11:08)
[2022-04-28] MEDS: Glucerna Shake 120 ML LIQUID PO ×3 (11:09→21:32)
--- NOTE | 2022-04-28 12:17 | CASEMGMT ---
Addendum entered by Delilah Rushing 04/28/22 16:45: Dr. Bhagat contacted this worker. SW explained below information. stated she will let pt decide on DC plans. Original Note: Social Work Received voicemail from nurse explaining Dr. Bhagat's recommendations. Spoke with pt. Explained pt is in a short-term rehab facility and insurance issued DC, thus transferring to another facility will not provide any coverage. Pt would receive part B therapies at SNF/AL, home with HHC or OP therapy, about 2-3x/wk. If pt would like additional therapy, per Dr. Bhagat's recommendations, pt would pay privately. Pt does not want to transfer to a SNF or AL. Pt requested prices for HHC. SW contact [facility] and they do not offer private pay or 5 days a week therapy. Updated pt. Pt inquired about private pay in TCU. Explained $660/day, all included, 5x/wk therapy, needing 21 days up front and can reimburse if pt discharges prior. Pt will discuss with family and make decision at care plan meeting scheduled for tomorrow. PAULA Kirk
[2022-04-28 13:27] VITALS: BP 148/61; PULSE 70
[2022-04-28 15:38] VITALS: BP 130/56; PULSE 70; RESP 16; TEMP 36.7; O2SAT 95
[2022-04-28] MEDS: Lactulose 20 GM/30 ML UDC PO (16:35)
--- NOTE | 2022-04-28 21:30 | PCA ---
Patient blood sugar at 21:00 was 233
[2022-04-28] MEDS: amLODIPine 10 MG Tablet PO (21:33)
[2022-04-28] MEDS: LINAGLIPTIN 5 MG TABLET PO (21:33)
[2022-04-28] MEDS: Rosuvastatin Calcium 5 MG Tablet PO (21:33)
[2022-04-28 21:34] VITALS: BP 143/52; PULSE 65
--- NOTE | 2022-04-28 22:08 | NURSING ---
Blood sugar per pt freestyle is 233.
[2022-04-29 05:01] VITALS: BP 145/51; PULSE 80
[2022-04-29] MEDS: hydrALAZINE 50 MG Tablet PO ×3 (05:01→22:11)
[2022-04-29] MEDS: Mirabegron 25 MG TAB.ER.24H PO (05:01)
[2022-04-29] MEDS: Losartan Potassium 100 MG Tablet PO (05:01)
[2022-04-29] MEDS: Levothyroxine 88 MCG Tablet PO (05:01)
[2022-04-29] MEDS: Cholecalciferol (Vit D3) 125 MCG CAPSULE (5,000 UNITS) PO (05:01)
[2022-04-29] MEDS: Senna/Docusate Sodium 1 Tablet 2 TABLET PO ×2 (05:01→17:38)
[2022-04-29] MEDS: Bisacodyl 5 MG Tablet 10 MG PO (05:05)
--- NOTE | 2022-04-29 06:39 | NURSING ---
Blood sugar 169 per Freestyle
--- NOTE | 2022-04-29 07:57 | PCM.DC.SUM ---
Providers Date of Admission: 04/20/22 Primary Care Physician: Dr. Karla Bhagat MD Reason For Visit: RIGHT HIP AVASCULAR NECROSIS Diagnosis Discharge Diagnosis (1) Debility: Status: Acute Code(s): R53.81 - Other malaise (2) Avascular necrosis of bone of right hip: Status: Acute Code(s): M87.051 - Idiopathic aseptic necrosis of right femur (3) S/P total right hip arthroplasty: Code(s): Z96.641 - Presence of right artificial hip joint (4) Hyponatremia: Status: Acute Code(s): E87.1 - Hypo-osmolality and hyponatremia (5) SIADH (syndrome of inappropriate ADH production): Status: Acute Code(s): E22.2 - Syndrome of inappropriate secretion of antidiuretic hormone (6) Hypothyroidism: Status: Acute Code(s): E03.9 - Hypothyroidism, unspecified (7) Hyperlipidemia: Status: Acute Code(s): E78.5 - Hyperlipidemia, unspecified (8) Vitamin D deficiency: Status: Acute Code(s): E55.9 - Vitamin D deficiency, unspecified (9) Carotid artery stenosis: Status: Acute Code(s): I65.29 - Occlusion and stenosis of unspecified carotid artery (10) Diabetes mellitus: Status: Acute Code(s): E11.9 - Type 2 diabetes mellitus without complications (11) Hypertension: Status: Chronic Code(s): I10 - Essential (primary) hypertension (12) Chronic diastolic congestive heart failure: Status: Chronic Code(s): I50.32 - Chronic diastolic (congestive) heart failure Medications at Discharge Home Medications Synthroid 88 mcg tablet 88 mcg PO DAILY #90 tab NS 07/16/20 rosuvastatin 5 mg tablet 5 mg PO DAILY tab 10/21/20 cholecalciferol (vitamin D3) 125 mcg (5,000 unit) capsule 125 mcg PO DAILY 10/30/20 Januvia 100 mg PO DAILY 09/21/21 losartan 100 mg PO DAILY 09/23/21 hydralazine 50 mg tablet 50 mg PO TID tab 11/04/21 amlodipine 10 mg tablet 10 mg PO QHS 30 Days #30 tab 02/09/22 Myrbetriq 25 mg PO DAILY 04/15/22 acetaminophen 1,000 mg PO Q6H PRN 04/15/22 ferrous sulfate [iron] 325 mg PO BID 04/15/22 folic acid 1 mg PO DAILY 04/15/22 insulin glargine [Lantus Solostar U-100 Insulin] 6 unit SUBCUT BREAKFAST 04/15/22 insulin lispro [Humalog KwikPen Insulin] 3 - 4 sliding scale dose SUBCUT 04/15/22 aspirin 81 mg PO BIDCM 04/20/22 lactulose 20 g PO DAILY PRN #1200 ml 04/20/22 gabapentin 100 mg PO BIDCM 30 Days #60 cap 04/29/22 oxycodone 10 mg PO Q6H PRN PRN 3 Days #36 tab 04/29/22 sennosides-docusate sodium [Stool Softener-Stimulant Laxat] 2 tab PO BID 30 Days #120 tab 04/29/22 Hospital Course Operations total hip replacement (Right.) Procedures None Summary of Care Provided Minutes Spent on Discharge: 35 Hospital Course: 81 year old female with below past medical history hospitalized for avascular necrosis right hip, underwent right total hip replacement 04/17/[address] Kline, complicated by intraoperative atrial fibrillation with rapid ventricular response which resolved spontaneously, hyponatremia, hyperglycemia, admitted to TCU with debility, here for rehabilitation, strengthening, prior to discharge home alone. Discharge home alone 04/30/2022, [facility] PT/OT. Physical Exam Const alert General Appearance: cooperative HEENT normocephalic Eyes PERRL and EOMs intact bilaterally Neck supple, no JVD and no carotid bruits Resp normal respiratory effort, normal air movement and clear to auscultation bilaterally Cardio regular rate and regular rhythm GI normal to inspection, nondistended, normoactive bowel sounds, non-tender and non-distended Extremity normal capillary refill General Extremity: Negative for edema Skin no rashes or lesions noted General Skin Exam: no breakdown Psych affect normal Appearance: appropriate Weight / BMI Weight Weight: 47.429 kg Body Mass Index (BMI) 20.2 ABG / Lab / Microbiology Data Result Diagrams: 04/28/22 05:44 04/28/22 05:44 D/C Instructions Discharge Diet: No restrictions Discharge Activity: Return to Normal Activity, May Shower and Use Walker Weight Bearing Status: Weight bearing as tolerated Call your doctor if you observe: Fever of 101 or Higher, Inability to urinate, Inability to have a bowel movement, Shortness of breath, Dizziness, Fainting spells, Swelling in the ankles, Chest pain and Uncontrolled pain Additional Instructions: Discharge home alone 04/30/2022, [facility] PT/OT. Please Follow Up With: Magdiel Kline MD When: As scheduled. Meaningful Use Info Meaningful Use Diagnoses (Choose all that apply): None applicable Discharge Plan Admission Admit Date/Time: 04/20/22 16:45 Primary Reason for Your Visit: Debility. Attending Provider: Sohail Grande Chi Primary Care Provider: Karla Bhagat Instructions Additional Instructions / Restrictions: Discharge home alone 04/30/2022, [facility] PT/OT. Discharge Orders/Prescriptions Prescriptions: New sennosides-docusate sodium [Stool Softener-Stimulant Laxat] 8.6-50 mg Tablet 2 tab PO BID 30 Days Qty: 120 RF: 0 gabapentin 100 mg Capsule 100 mg PO BIDCM 30 Days Qty: 60 RF: 0 Continued levothyroxine [Synthroid] 88 mcg tablet 88 mcg PO DAILY Qty: 90 RF: 3 rosuvastatin 5 mg tablet 5 mg PO DAILY RF: 0 cholecalciferol (vitamin D3) 125 mcg (5,000 unit) capsule 125 mcg PO DAILY RF: 0 hydralazine 50 mg tablet 50 mg PO TID RF: 0 Januvia 100 mg tablet 100 mg PO DAILY RF: 0 losartan 100 mg tablet 100 mg PO DAILY RF: 0 acetaminophen 500 mg Tablet 1,000 mg PO Q6H PRN (Reason: Pain) RF: 0 ferrous sulfate [iron] 325 mg (65 mg iron) Tablet 325 mg PO BID RF: 0 folic acid 1 mg Tablet 1 mg PO DAILY RF: 0 insulin lispro [Humalog KwikPen Insulin] 100 unit/mL insulin pen 3 - 4 sliding scale dose SUBCUT RF: 0 insulin glargine [Lantus Solostar U-100 Insulin] 100 unit/mL (3 mL) insulin pen 6 unit SUBCUT BREAKFAST RF: 0 Myrbetriq 25 mg Tablet Extended Release 24 Hr 25 mg PO DAILY RF: 0 lactulose 20 gram/30 mL solution 20 g PO DAILY PRN (Reason: constipation) Qty: 1200 RF: 0 aspirin 81 mg tablet,chewable 81 mg PO BIDCM RF: 0 oxycodone 5 mg tablet 10 mg PO Q6H PRN PRN (Reason: Pain Score 6-10) 3 Days Qty: 36 RF: 0 amlodipine 10 mg tablet 10 mg PO QHS 30 Days Qty: 30 RF: 0 Referrals / Follow Up: Karla Bhagat MD [Primary Care Provider] - 05/05/22 3:30 pm Disposition Disposition (needs filled in before D/C Order can be placed): Home Health Service
[2022-04-29] MEDS: Aspirin 81 MG TAB.CHEW PO ×2 (08:13→17:37)
[2022-04-29] MEDS: Insulin Glargine-YFGN 100 UNIT/ML Pen 8 UNIT SC (08:13)
[2022-04-29] MEDS: Ferrous Sulfate 325 MG Tablet PO ×2 (08:13→17:37)
[2022-04-29] MEDS: Folic Acid 1 MG Tablet PO (08:13)
[2022-04-29] MEDS: Glucerna Shake 120 ML LIQUID PO ×3 (08:14→22:16)
[2022-04-29] MEDS: Acetaminophen 500 MG Tablet 1000 MG PO ×2 (08:20→19:50)
--- NOTE | 2022-04-29 08:46 | NURSING ---
Back Tacker Note: Interview and Section F of MDS complete for MAUDE 04/27/22.
[2022-04-29] MEDS: Gabapentin 100 MG Capsule PO ×2 (09:52→17:49)
[2022-04-29] MEDS: oxyCODONE 5 MG Tablet 10 MG PO ×3 (09:52→19:49)
--- NOTE | 2022-04-29 09:57 | CASEMGMT ---
Social Work IDT met with patient and son for care plan meeting. Discussed patient's progress in PT/OT/SN. Pt progressing well. Pt is [place], ad janusz in room, completing steps. [facility] Pt expressed staying in TCU longer to get further therapy based on PCP recommendations. Pt has decided she will DC home as planned with [facility] PT/OT/SN. Son agrees. SW notified [facility]. Son to transport home. Plan: Remains DC home 04/30, [facility] PT/OT/SN Delilah Rushing, [employer]
[2022-04-29 14:36] VITALS: BP 125/41; PULSE 68; RESP 14; TEMP 37.3; O2SAT 97
[2022-04-29 15:18] VITALS: BP 125/72; PULSE 70
[2022-04-29] MEDS: Neuropathy Pain Cream Compound 60 CLICK TUBE TOPICAL ×2 (15:19→22:18)
--- NOTE | 2022-04-29 17:51 | NURSING ---
Patient reported blood sugar level at 164
[2022-04-29 22:11] VITALS: BP 140/51; PULSE 80
[2022-04-29] MEDS: amLODIPine 10 MG Tablet PO (22:11)
[2022-04-29] MEDS: LINAGLIPTIN 5 MG TABLET PO (22:11)
[2022-04-29] MEDS: Rosuvastatin Calcium 5 MG Tablet PO (22:12)
--- NOTE | 2022-04-30 06:15 | PCA ---
patient scanned her glucose monitor and her sugar was 166 this morning at 614 am
[2022-04-30] MEDS: Losartan Potassium 100 MG Tablet PO (06:39)
[2022-04-30] MEDS: Mirabegron 25 MG TAB.ER.24H PO (06:40)
[2022-04-30] MEDS: Levothyroxine 88 MCG Tablet PO (06:42)
[2022-04-30] MEDS: Cholecalciferol (Vit D3) 125 MCG CAPSULE (5,000 UNITS) PO (06:42)
[2022-04-30 06:53] VITALS: PULSE 78
[2022-04-30] MEDS: hydrALAZINE 50 MG Tablet PO (06:53)
[2022-04-30] MEDS: Insulin Glargine-YFGN 100 UNIT/ML Pen 8 UNIT SC (08:23)
[2022-04-30] MEDS: Folic Acid 1 MG Tablet PO (08:23)
[2022-04-30] MEDS: Ferrous Sulfate 325 MG Tablet PO (08:23)
[2022-04-30] MEDS: Aspirin 81 MG TAB.CHEW PO (08:23)
[2022-04-30] MEDS: Acetaminophen 500 MG Tablet 1000 MG PO (08:28)
[2022-04-30] MEDS: oxyCODONE 5 MG Tablet 10 MG PO (08:28)
[2022-04-30] MEDS: Gabapentin 100 MG Capsule PO (08:29)
[2022-04-30 08:30] VITALS: PULSE 80; RESP 16; O2SAT 98
[2022-04-30 10:00] VITALS: BP 144/72; PULSE 65; RESP 16; TEMP 36.9; O2SAT 98
--- NOTE | 2022-05-01 11:24 | MDS.RN ---
Information for the mds was obtained from review of the clinical record, interview of resident, staff, and direct observation of resident's care.
== END 2022-04-30 10:00 | disposition home health service (06) | DRG 560 ==
PROVIDERS: Admitting Provider Family Medicine Geriatric Medicine; PCP Internal Medicine; Visit Provider Family Medicine Geriatric Medicine
DX: Z47.1 Aftercare following joint replacement surgery (principal); E22.2 Syndrome of inappropriate secretion of antidiuretic hormone; M87.051 Idiopathic aseptic necrosis of right femur; I50.32 Chronic diastolic (congestive) heart failure; I11.0 Hypertensive heart disease with heart failure; Z79.4 Long term (current) use of insulin; I48.91 Unspecified atrial fibrillation; D50.9 Iron deficiency anemia, unspecified; E53.8 Deficiency of other specified B group vitamins; E55.9 Vitamin D deficiency, unspecified; E89.0 Postprocedural hypothyroidism; E78.5 Hyperlipidemia, unspecified; Z87.891 Personal history of nicotine dependence; Z96.641 Presence of right artificial hip joint; N32.81 Overactive bladder; Z79.899 Other long term (current) drug therapy; Z79.82 Long term (current) use of aspirin; Z23 Encounter for immunization
CPT/HCPCS: 0064A; 36415; 80048; 82962; 85014; 85018; 85025; 91306; 97110; 97116; 97162; 97166; 97530; 97535; 97802

== ENCOUNTER 2022-06-07 10:01 | Emergency (ER) | payer MEDICARE, SELFPAY ==
[2022-06-07] VITALS (7 sets, daily range): BP systolic 154–195; BP diastolic 66–112; PULSE 62–72; RESP 12–18; TEMP 36.3–36.6; O2SAT 96–100; BMI 19.8
--- NOTE | 2022-06-07 10:11 | RAD_ITS ---
STUDY: X-RAY - RIGHT FEMUR REASON FOR STUDY: Female, 81 years old. Trauma TECHNIQUE: 4 view(s) of the femur. COMPARISON: Right hip x-ray dated June 07, 2022 FINDINGS: Complete dislocation of the right femoral prosthetic head from the acetabular cup. There are no demonstrated fractures of the femoral shaft or included portions of the pelvis. Atherosclerotic calcifications are present. There is degenerative narrowing in the knee joint. Normal visualized soft tissue structure. RAD/Femur Min 2 Views IMPRESSION: 1. Complete dislocation of the right femoral prosthetic head from the acetabular cup Electronically Signed: Vikash Baker MD at 11:17 EDT ,
--- NOTE | 2022-06-07 10:11 | RAD_ITS ---
STUDY: X-RAY CHEST REASON FOR EXAM: Female, 81 years old. Trauma TECHNIQUE: Single AP portable view of the chest. COMPARISON: September 20, 2021 FINDINGS: No consolidation is present. There is hyperinflation of the lungs consistent with chronic obstructive lung disease (COPD). There is no demonstrated pleural abnormality. There is borderline cardiomegaly. Normal mediastinum and dave. Normal visualized pulmonary arteries. There is atherosclerotic calcification of the aortic arch with tortuosity. There are diffuse degenerative changes of the visualized thoracic spine. Normal visualized ribs, clavicles, and shoulders. There is no demonstrated abnormality of the visualized soft tissue structures of the upper abdomen. RAD/Chest 1 View (Portable) IMPRESSION: COPD Electronically Signed: Vikash Baker MD at 11:15 EDT ,
--- NOTE | 2022-06-07 10:11 | RAD_ITS ---
STUDY: X-RAY - PELVIS REASON FOR EXAM: Female, 81 years old. Trauma TECHNIQUE: One view of the pelvis was obtained. COMPARISON: Pelvic x-ray dated December 01, 2021 FINDINGS: There is proximal and slightly posterior dislocation of the right femoral prosthetic head from the acetabular cup. No visualized acute fractures of the pelvis or hips. The right femoral prosthesis is a new finding when compared to December 01, 2021 study. There is a non-specific bowel gas pattern. Normal visualized soft tissue structures. Normal bilateral iliac wings, sacroiliac joints and visualized sacrum. Normal visualized bilateral superior and inferior pubic rami. Normal pubic symphysis. Normal ischial tuberosities. Normal visualized left femoral head. Normal left acetabulum. Normal left hip joint. RAD/Pelvis 1 or 2 Views IMPRESSION: 1. Proximal and slightly posterior dislocation of the right femoral prosthetic head from the acetabular cup. No visualized acute fractures of the pelvis or hips. Electronically Signed: Vikash Baker MD at 11:16 EDT ,
--- NOTE | 2022-06-07 10:15 | EDS_ITS ---
HPI History of Present Illness Chief Complaint: Fall Informant: patient Narrative Narrative: Patient had a mechanical fall this morning. She states she was twisting to get an earring in and she just leaned too far and fell. There was no syncope. She did not hit her head or lose consciousness at any time. No abnormal heartbeats chest pain pressure lightheadedness nausea or vomiting. She fell onto her right hip. She just had surgery with Dr. Kline on this hip on 17 April. [facility]. She has been home since. She has been doing well. She does live alone. Nothing really hurts other than the right hip area. It is externally rotated. On review of systems I did find that the patient's been having some soft stools and diarrhea ever since she has been home. She has not had these evaluated. But she has been eating and drinking fine. No history of C. difficile colitis. Not having abdominal pain or blood in the stool. [facility] Medical History Anxiety Avascular necrosis of bone of hip Back pain Bilateral carotid bruits Bladder disease Cancer Cardiology follow-up encounter Carotid artery stenosis Carotid stenosis, bilateral Chronic constipation Constipation Coronary artery disease 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 Depression Diabetes mellitus, type II Dietary restriction Dizziness Easy bruising Essential hypertension Heartburn High cholesterol History of CHF (congestive heart failure) History of echocardiogram History of edema History of irregular heartbeat History of pain when walking History of renal disease History of steroid therapy History of stress test Hyperlipidemia Hypertension Hyponatremia with extracellular fluid depletion Hypothyroidism Injury of head and neck Leg cramps Loss of hearing Osteoporosis Pain Pneumonia Shortness of breath on exertion Syncope Thyroid disease Transaminitis Uses wheelchair Valvular heart disease Vitamin D deficiency Wears glasses Wears partial dentures Home Medications Synthroid 88 mcg tablet (levothyroxine) 88 mcg PO DAILY thyroid #90 tabs 07/16/20 [Rx Last Taken 03/16/22] rosuvastatin 5 mg tablet 5 mg PO DAILY cholesterol 10/21/20 [History Last Taken 03/08/22] cholecalciferol (vitamin D3) 125 mcg (5,000 unit) capsule 125 mcg PO DAILY supplement 10/30/20 [History Last Taken 03/08/22] sitagliptin 100 mg tablet (Januvia) 100 mg PO DAILY Blood sugar 09/21/21 [History Last Taken 03/07/22] losartan 100 mg tablet 100 mg PO DAILY BP 09/23/21 [History Last Taken 03/08/22] hydralazine 50 mg tablet 50 mg PO TID BP 11/04/21 [History Last Taken 03/16/22] amlodipine 10 mg tablet 10 mg PO QHS BP 30 days #30 tabs 02/09/22 [Rx Last Taken 03/16/22] acetaminophen 500 mg tablet 1,000 mg PO Q6H PRN Pain 04/15/22 [History Last Taken Unknown] folic acid 1 mg tablet 1 mg PO DAILY Supplement 04/15/22 [History Last Taken Unknown] insulin glargine 100 unit/mL (3 mL) subcutaneous pen (Lantus Solostar U-100 Insulin) 6 unit subcut BREAKFAST Diabetes 04/15/22 [History Last Taken Unknown] insulin lispro 100 unit/mL subcutaneous pen (Humalog KwikPen (U-100) Insulin) 3 - 4 sliding scale dose subcut Diabetes 04/15/22 [History Last Taken Unknown] mirabegron 25 mg tablet,extended release 24 hr (Myrbetriq) 25 mg PO DAILY Check with primary doctor 04/15/22 [History Last Taken Unknown] lactulose 20 gram/30 mL oral solution 20 g (30 mL) PO DAILY PRN constipation #1,200 mL 04/20/22 [Rx Last Taken Unknown] sennosides 8.6 mg-docusate sodium 50 mg tablet (Stool Softener-Stimulant Laxative) 2 tab PO BID 30 days #120 tabs 04/29/22 [Rx Last Taken Unknown] aspirin 81 mg chewable tablet 81 mg PO DAILY Heart 05/29/22 [History Last Taken Unknown] ferrous sulfate 325 mg (65 mg iron) tablet (iron) 325 mg PO DAILY Supplement 05/29/22 [History Last Taken Unknown] gabapentin 100 mg capsule 100 mg PO DAILY 05/29/22 [History Last Taken Unknown] tramadol 50 mg tablet 50 mg PO DAILY PRN pain 05/29/22 [History Last Taken Unknown] oxycodone-acetaminophen 5 mg-325 mg tablet (Percocet) 1 tab PO Q6H PRN pain 3 days #10 tabs 06/07/22 [Rx Last Taken Unknown] Allergy/AdvReac Type Severity Reaction Status Date / Time metformin Allergy Severe Rash Verified 06/07/22 10:02 neomycin [Neomycin] Allergy Severe Unknown Verified 06/07/22 10:02 Tetracyclines Allergy Severe Anaphylaxis Verified 06/07/22 10:02 Sulfa (Sulfonamide Allergy Constipatio Verified 06/07/22 10:02 Antibiotics) n Family History Mother Thyroid disorder Father Alzheimer disease Surgical History History of cardiac catheterization History of foot surgery History of left heart catheterization (12/28/14) History of right hip replacement History of thyroidectomy History of tonsillectomy and adenoidectomy Hx of colonoscopy S/P total right hip arthroplasty Social History household members: none Smoking Status: Former smoker how long ago did patient quit smokin years ago alcohol intake: current alcohol intake frequency: a few times a month Alcohol type: wine substance use type: does not use caffeine: Yes Type: coffee Number of servings: 2 ROS ROS ED Constitutional Constitutional ED: Denies chills or fever(s) ENT ENT ED: Denies rhinorrhea or sore throat Cardiovascular Cardiovascular: Denies chest pain, palpitations or racing heartbeat Respiratory/Chest Respiratory/Chest: Denies cough or dyspnea Gastrointestinal Gastrointestinal: Reports diarrhea; Denies abdominal pain, melena, nausea or vomiting Genitourinary Genitourinary ED: Denies dysuria or urinary frequency Musculoskeletal Musculoskeletal: Reports other Details: See history of present illness ; Denies back pain Integumentary Denies rash Neurologic Neurologic: Denies headache(s) or paresthesias Endocrine Endocrinology: Denies polydipsia or polyuria Hematologic/Lymphatic Hematologic/Lymphatic: Reports other Details: Patient is on baby aspirin now. She used to be on Plavix but is no longer. ; Denies easy bleeding or easy bruising Allergic/Immunologic Allergic/Immunologic ED: Denies urticaria EXAM Physical Exam Const Vital Signs: 06/07/22 10:02 06/07/22 11:37 06/07/22 11:27 Temperature 97.3 F L 98 F 97.3 F L Temperature Source Temporal Pulse Rate 69 72 70 Pulse Rate [1 (Initial Baseline)] Pulse Rate [2] Pulse Rate [3] Pulse Rate [4] Respiratory Rate 18 18 12 Respiratory Rate [1 (Initial Baseline)] Respiratory Rate [2] Respiratory Rate [3] Respiratory Rate [4] Blood Pressure 158/66 H 195/76 H 181/73 H Blood Pressure [1 (Initial Baseline)] Blood Pressure [2] Blood Pressure [3] Blood Pressure [4] Blood Pressure Mean 96 Pulse Ox 97 100 100 Oxygen Delivery Method Room Air Nasal Cannula Nasal Cannula Oxygen Delivery Method [1 (Initial Baseline)] Oxygen Delivery Method [2] Oxygen Delivery Method [3] Oxygen Delivery Method [4] Oxygen Flow Rate (L/min) 3 Oxygen Flow Rate (L/min) [1 (Initial Baseline)] Oxygen Flow Rate (L/min) [2] Oxygen Flow Rate (L/min) [3] Oxygen Flow Rate (L/min) [4] 06/07/22 11:52 06/07/22 12:03 06/07/22 12:08 Temperature Temperature Source Pulse Rate Pulse Rate [1 (Initial Baseline)] 70 Pulse Rate [2] 62 Pulse Rate [3] 70 Pulse Rate [4] 65 Respiratory Rate Respiratory Rate [1 (Initial Baseline)] 18 Respiratory Rate [2] 16 Respiratory Rate [3] 18 Respiratory Rate [4] 16 Blood Pressure Blood Pressure [1 (Initial Baseline)] 189/81 H Blood Pressure [2] 178/94 H Blood Pressure [3] 176/112 H Blood Pressure [4] 160/84 H Blood Pressure Mean Pulse Ox Oxygen Delivery Method Nasal Cannula Nasal Cannula Oxygen Delivery Method [1 (Initial Baseline)] Nasal Cannula Oxygen Delivery Method [2] Nasal Cannula Oxygen Delivery Method [3] Nasal Cannula Oxygen Delivery Method [4] Nasal Cannula Oxygen Flow Rate (L/min) 5 2 Oxygen Flow Rate (L/min) [1 (Initial Baseline)] 3 Oxygen Flow Rate (L/min) [2] 3 Oxygen Flow Rate (L/min) [3] 3 Oxygen Flow Rate (L/min) [4] 3 06/07/22 12:13 Temperature Temperature Source Pulse Rate Pulse Rate [1 (Initial Baseline)] Pulse Rate [2] Pulse Rate [3] Pulse Rate [4] Respiratory Rate Respiratory Rate [1 (Initial Baseline)] Respiratory Rate [2] Respiratory Rate [3] Respiratory Rate [4] Blood Pressure Blood Pressure [1 (Initial Baseline)] Blood Pressure [2] Blood Pressure [3] Blood Pressure [4] Blood Pressure Mean Pulse Ox Oxygen Delivery Method Room Air Oxygen Delivery Method [1 (Initial Baseline)] Oxygen Delivery Method [2] Oxygen Delivery Method [3] Oxygen Delivery Method [4] Oxygen Flow Rate (L/min) Oxygen Flow Rate (L/min) [1 (Initial Baseline)] Oxygen Flow Rate (L/min) [2] Oxygen Flow Rate (L/min) [3] Oxygen Flow Rate (L/min) [4] Positive well nourished and well developed General Appearance ED: well developed and NAD HEENT atraumatic Eyes EOMs intact bilaterally Neck full ROM General: Negative for tenderness Resp normal respiratory effort and clear to auscultation bilaterally Cardio regular rhythm Rate: regular rate GI normal to inspection, nondistended, normoactive bowel sounds, non-tender and non-distended Back/Spine Thoracic Spine / Upper Back: Negative for thoracic spinal tenderness Extremity Extremity Narrative: Right leg is externally rotated and slightly shortened. No tenderness to the foot ankle leg and knee. Pain seems to occur near the upper femur. She is better after the fentanyl that she has received on the ride in with EMS. But she is still having pain. I will get her more meds for pain and also we do need to get x-rays. Neuro oriented x3 Psych mental status grossly normal Skin no rashes or lesions noted and no wounds MDM MDM MDM Narrative Medical decision making narrative: Patient's blood work shows some mild low white count. Electrolytes are overall unremarkable other than minimally low sodium. Glucose is 203. X-ray shows COPD. X-rays of her hip show a dislocation and not a fracture. When I talked to the patient now she states that she was standing putting an earring and twisted and then her leg just gave out from under her. I think she dislocated and fell. I then discussed the case with Dr. Hayes who is on-call for Dr. Kline. We will attempt reduction of this hip. I discussed risks benefits with her. Procedure: Procedural sedation and hip reduction: Her last meal was about 5-1/2 hours prior to procedure. No problems with anesthesia. Mallampati 1. We did choose to proceed. She received a total of 120 mg of propofol. She received 40 and then 20 more. She was still painful so she got 20 more. We are having trouble getting reduction shows she got 20 and then 20 again. Total was 120. With longitudinal traction and internal and external rotation we are able to get the hip to reduce. It was out to length. It was not externally rotated. Post reduction x-rays show good position and she feels markedly better. She did have a slight desaturation to the upper 80s. We are going to use ambo but her sats responded and came up and she took some deep breaths when requested. She had no difficulties. We did use a little higher dose of dipper Van because we really had to get her muscles to relax and he could feel that they were spasming. We will get her up and walk. Dr. Hayes stated that with her anterior dis location she does not need a knee immobilizer. She has a walker at home. If she is mobile and safe we will get her home. We got the patient up and walk. She is using her walker. But she is rolling around with a walker quite well. She is doing very well walking. I will write for some oxycodone in case she needs it at home. We discussed follow-up and reasons to return. Lab Data Attestation: I reviewed the patient's lab results. Labs: Laboratory Results - last 24 hr 06/07/22 06/07/22 10:10 10:10 WBC 3.8 L RBC 4.42 Hgb 12.7 Hct 39.5 MCV 89.4 MCH 28.7 MCHC 32.2 RDW Std Deviation 44.4 H RDW Coeff of Obed 13.4 Plt Count 213 MPV 9.7 Immature Gran % (Auto) 1.600 H Neut % (Auto) 60.7 Lymph % (Auto) 19.6 [place] % (Auto) 12.2 H Eos % (Auto) 4.0 Baso % (Auto) 1.9 H Absolute Neuts (auto) 2.3 Absolute Lymphs (auto) 0.74 L Nucleated RBC % 0 Sodium 133 L Potassium 4.0 Chloride 98 Carbon Dioxide 29.0 Anion Gap 6 BUN 22 H Creatinine 0.59 Estim Creat Clear Calc 33.17 Est GFR (MDRD) Af Amer 126 Est GFR (MDRD) Non-Af 104 BUN/Creatinine Ratio 37.5 H Glucose 203 H Calcium 9.5 Total Bilirubin 0.60 AST 26 ALT 32 Alkaline Phosphatase 98 Total Protein 6.6 Albumin 3.7 Globulin 2.9 Albumin/Globulin Ratio 1.3 Radiography Diagnostic Testing: Clinical Impression(s) from Imaging Studies Chest X-Ray 06/07/22 10:11 IMPRESSION: COPD Electronically Signed: Vikash Baker MD at 11:15 EDT Reading Location ID and State: [address] [place] [address] , Service support , Femur X-Ray 06/07/22 10:11 IMPRESSION: 1. Complete dislocation of the right femoral prosthetic head from the acetabular cup Electronically Signed: Vikash Baker MD at 11:17 EDT , Pelvis X-Ray 06/07/22 10:11 IMPRESSION: 1. Proximal and slightly posterior dislocation of the right femoral prosthetic head from the acetabular cup. No visualized acute fractures of the pelvis or hips. Electronically Signed: Vikash Baker MD at 11:16 EDT Reading Location ID and State: [address] [place] [address] , Service support , Hip X-Ray 06/07/22 12:01 IMPRESSION: Successful reduction of previously dislocated right femoral prosthesis Electronically Signed: Vikash Baker MD at 12:45 EDT Reading Location ID and State: [facility] / [place] , Service support , Discharge Plan Triage Chief Complaint: Fall Other Complaint: Lower Extremity Injury ED Provider: Jeyson Mike Dx/Rx/DC Orders Clinical Impression: Fall at home, Dislocation of internal right hip prosthesis, initial encounter Instructions: ED Hip Replace Dislocation Reduc Prescriptions: New oxycodone-acetaminophen [Percocet] 5-325 mg tablet 1 tab PO Q6H PRN (Reason: pain) 3 Days Qty: 10 0RF No Action levothyroxine [Synthroid] 88 mcg tablet 88 mcg PO DAILY Qty: 90 3RF Rx Instructions: Patient can only take brand name Synthroid rosuvastatin 5 mg tablet 5 mg PO DAILY cholecalciferol (vitamin D3) 125 mcg (5,000 unit) capsule 125 mcg PO DAILY hydralazine 50 mg tablet 50 mg PO TID gabapentin 100 mg capsule 100 mg PO DAILY tramadol 50 mg tablet 50 mg PO DAILY PRN (Reason: pain) Januvia 100 mg tablet 100 mg PO DAILY Rx Instructions: takes in evening losartan 100 mg tablet 100 mg PO DAILY acetaminophen 500 mg Tablet 1,000 mg PO Q6H PRN (Reason: Pain) folic acid 1 mg Tablet 1 mg PO DAILY insulin lispro [Humalog KwikPen Insulin] 100 unit/mL insulin pen 3 - 4 sliding scale dose SUBCUT Label Comments: inject 6 units subcutaneously with meals insulin glargine [Lantus Solostar U-100 Insulin] 100 unit/mL (3 mL) insulin pen 6 unit SUBCUT BREAKFAST Label Comments: inject 8 units UNDER THE SKIN IN THE MORNING Myrbetriq 25 mg Tablet Extended Release 24 Hr 25 mg PO DAILY lactulose 20 gram/30 mL solution 20 g PO DAILY PRN (Reason: constipation) Qty: 1200 0RF ferrous sulfate [iron] 325 mg (65 mg iron) tablet 325 mg PO DAILY sennosides-docusate sodium [Stool Softener-Stimulant Laxat] 8.6-50 mg Tablet 2 tab PO BID 30 Days Qty: 120 0RF aspirin 81 mg tablet,chewable 81 mg PO DAILY amlodipine 10 mg tablet 10 mg PO QHS 30 Days Qty: 30 0RF Primary Care Provider: Karla Bhagat Referrals: Karla Bhagat MD [Primary Care Provider] - Magdiel Kline MD [STAFF PHYSICIAN] - As soon as possible Disposition Disposition: Home, Self Care
[2022-06-07] MEDS: Morphine 4 MG/ML Syringe IV ×2 (10:20→11:18)
[2022-06-07] MEDS: Ondansetron 4 MG/2 ML Vial IV (10:20)
[2022-06-07 10:32] LABS: Absolute Lymphocyte Count 0.74 X10^3/uL (0.83-4.51); Absolute Neutrophil Count 2.3 X10^3/uL (2.0-7.7); Basophil# 0.07 X10^3/uL; Basophil% 1.9 % (0-1); Eosinophil# 0.15 X10^3/uL; Hematocrit 39.5 % (37-47); Hemoglobin 12.7 g/dL (12.0-15.0); Lymphocyte # 0.74 X10^3/ul (0.83-4.51); Lymphocyte % 19.6 % (19-41); Mean Corp Hgb Conc 32.2 g/dL (32-36); Mean Corpuscular Hgb 28.7 pg (27.0-32.0); Mean Corpuscular Volume 89.4 fL (81-99); Mean Platelet Vol. 9.7 fl (6.2-12.0); Monocyte# 0.46 X10^3/uL; Monocyte% 12.2 % (0-10); NRBC Flagged by Analyzer 0 % (0-5); Neutrophil # 2.29 X10^3/uL (2.7-7.7); Neutrophil % 60.7 % (47-70); Platelet Count 213 K/mm3 (150-450); RBC Distribution Width CV 13.4 % (11.6-14.6); RBC Distribution Width SD 44.4 fl (35.1-43.9); Red Blood Count 4.42 M/mm3 (4.2-5.4); White Blood Count 3.8 K/mm3 (4.4-11.0)
[2022-06-07 10:36] LABS: ALB/GLOB Ratio 1.3 RATIO (0.9-2.4); AST(SGOT) 26 U/L (15-37); Alanine Aminotransfer ALT/SGPT 32 U/L (13-56); Albumin, Serum 3.7 g/dL (3.2-5.0); Alkaline Phosphatase 98 U/L (45-117); Anion Gap 6 (5-15); BUN 22 mg/dL (7-18); BUN/Creat Ratio 37.5 RATIO (10-20); Calcium,Total 9.5 mg/dL (8.5-10.1); Chloride 98 mmol/L (98-107); Creatinine, Serum 0.59 mg/dL (0.55-1.02); EST Glomerular Filtration Rate 104 mL/min (>60); Est Glom Filt Rate - Afr Amer 126 mL/min (>60); Estimated Creatinine Clearance 33.17 ml/min; Globulin 2.9 g/dL (2.2-4.2); Glucose 203 mg/dL (74-106); Protein, Total 6.6 g/dL (6.4-8.2); Sodium Level 133 mmol/L (136-145)
--- NOTE | 2022-06-07 12:01 | RAD_ITS ---
STUDY: X-RAY - PELVIS AND RIGHT HIP REASON FOR EXAM: Female, 81 years old. hip dislocation TECHNIQUE: 2 views of the pelvis and hip. COMPARISON: Pelvic x-ray at 10:44 AM on June 07, 2022 FINDINGS: Follow-up study shows successful reduction of the previously dislocated right femoral prosthesis into the acetabular cup. No visualized acute fractures or displaced bony fragments. The remaining structures are stable. There is a non-specific bowel gas pattern. Normal visualized soft tissue structures. RAD/Hip Min 2 Views (Portable) IMPRESSION: Successful reduction of previously dislocated right femoral prosthesis Electronically Signed: Vikash Baker MD at 12:45 EDT ,
[2022-06-07] MEDS: Propofol 200 MG/20 ML Vial IV BOLUS (12:07)
== END 2022-06-07 14:07 | disposition home or self-care (01) ==
PROVIDERS: Emergency Provider Emergency Medicine; PCP Internal Medicine; Visit Provider Emergency Medicine
DX: S73.004A Unspecified dislocation of right hip, initial encounter (principal); I25.10 Atherosclerotic heart disease of native coronary artery without angina pectoris; Z87.891 Personal history of nicotine dependence; W19.XXXA Unspecified fall, initial encounter
CPT/HCPCS: 71045; 72170; 73502; 73552; 80053; 85025; 93005; 96374; 96375; 96376; 99285; J7030; A4216; J2405

== ENCOUNTER 2022-07-15 16:13 | Emergency (ER) | payer MEDICARE, SELFPAY ==
[2022-07-15] VITALS (9 sets, daily range): BP systolic 130–178; BP diastolic 53–86; PULSE 69–80; RESP 12–22; TEMP 36.8–37.2; O2SAT 14–100; BMI 20.9
--- NOTE | 2022-07-15 16:24 | EDS_ITS ---
HPI History of Present Illness HPI Narrative: Patient presents with right hip dislocation that occurred today. Patient states she was standing with her walker. Patient states she turned and felt her hip dislocate. Patient fell. Patient states she was unable to get up and bear weight. Patient states her pain is worse with any movement. Patient describes her pain as sharp and aching. Patient denies any paresthesias or weakness. Patient denies any head injury or loss of consciousness. Patient denies any other injuries. Patient states she had a similar episode 3 weeks ago. Patient states she has an appointment with her orthopedic surgeon tomorrow. Chief Complaint: Lower Extremity Injury Informant: patient Occured/Mechanism Comment: Turned while standing Onset/Context/Timing Onset: Today Context: Sudden Onset Timing: Continuous Quality of Pain: Sharp and Aching Location: Right hip Worsened by: Movement Relieved by: Nothing Associated Symptoms Associated Symptoms: Negative for Parasthesia, Weakness or Loss of Funtion [facility] Medical History Anxiety Avascular necrosis of bone of hip Back pain Bilateral carotid bruits Bladder disease Cancer Cardiology follow-up encounter Carotid artery stenosis Carotid stenosis, bilateral Chronic constipation Constipation Coronary artery disease 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 Depression Diabetes mellitus, type II Dietary restriction Dizziness Easy bruising Essential hypertension Heartburn High cholesterol History of CHF (congestive heart failure) History of echocardiogram History of edema History of irregular heartbeat History of pain when walking History of renal disease History of steroid therapy History of stress test Hyperlipidemia Hypertension Hyponatremia with extracellular fluid depletion Hypothyroidism Injury of head and neck Leg cramps Loss of hearing Osteoporosis Pain Pneumonia Shortness of breath on exertion Syncope Thyroid disease Transaminitis Uses wheelchair Valvular heart disease Vitamin D deficiency Wears glasses Wears partial dentures Home Medications Synthroid 88 mcg tablet (levothyroxine) 88 mcg PO DAILY thyroid #90 tabs 07/16/20 [Rx Last Taken 03/16/22] rosuvastatin 5 mg tablet 5 mg PO DAILY cholesterol 10/21/20 [History Last Taken 03/08/22] cholecalciferol (vitamin D3) 125 mcg (5,000 unit) capsule 125 mcg PO DAILY supplement 10/30/20 [History Last Taken 03/08/22] sitagliptin 100 mg tablet (Januvia) 100 mg PO DAILY Blood sugar 09/21/21 [History Last Taken 03/07/22] losartan 100 mg tablet 100 mg PO DAILY BP 09/23/21 [History Last Taken 03/08/22] hydralazine 50 mg tablet 50 mg PO TID BP 11/04/21 [History Last Taken 03/16/22] amlodipine 10 mg tablet 10 mg PO QHS BP 30 days #30 tabs 02/09/22 [Rx Last Taken 03/16/22] acetaminophen 500 mg tablet 1,000 mg PO Q6H PRN Pain 04/15/22 [History Last T aken Unknown] folic acid 1 mg tablet 1 mg PO DAILY Supplement 04/15/22 [History Last Taken Unknown] insulin glargine 100 unit/mL (3 mL) subcutaneous pen (Lantus Solostar U-100 Insulin) 6 unit subcut BREAKFAST Diabetes 04/15/22 [History Last Taken Unknown] insulin lispro 100 unit/mL subcutaneous pen (Humalog KwikPen (U-100) Insulin) 3 - 4 sliding scale dose subcut Diabetes 04/15/22 [History Last Taken Unknown] mirabegron 25 mg tablet,extended release 24 hr (Myrbetriq) 25 mg PO DAILY Check with primary doctor 04/15/22 [History Last Taken Unknown] lactulose 20 gram/30 mL oral solution 20 g (30 mL) PO DAILY PRN constipation #1,200 mL 04/20/22 [Rx Last Taken Unknown] sennosides 8.6 mg-docusate sodium 50 mg tablet (Stool Softener-Stimulant Laxative) 2 tab PO BID 30 days #120 tabs 04/29/22 [Rx Last Taken Unknown] aspirin 81 mg chewable tablet 81 mg PO DAILY Heart 05/29/22 [History Last Taken Unknown] ferrous sulfate 325 mg (65 mg iron) tablet (iron) 325 mg PO DAILY Supplement 05/29/22 [History Last Taken Unknown] gabapentin 100 mg capsule 100 mg PO DAILY 05/29/22 [History Last Taken Unknown] tramadol 50 mg tablet 50 mg PO DAILY PRN pain 05/29/22 [History Last Taken Unknown] oxycodone-acetaminophen 5 mg-325 mg tablet (Percocet) 1 tab PO Q6H PRN pain 3 days #10 tabs 06/07/22 [Rx Last Taken Unknown] Allergy/AdvReac Type Severity Reaction Status Date / Time metformin Allergy Severe Rash Verified 07/15/22 16:16 neomycin [Neomycin] Allergy Severe Unknown Verified 07/15/22 16:16 Tetracyclines Allergy Severe Anaphylaxis Verified 07/15/22 16:16 Sulfa (Sulfonamide Allergy Constipatio Verified 07/15/22 16:16 Antibiotics) n Family History Mother Thyroid disorder Father Alzheimer disease Surgical History History of cardiac catheterization History of foot surgery History of left heart catheterization (12/28/14) History of right hip replacement History of thyroidectomy History of tonsillectomy and adenoidectomy Hx of colonoscopy S/P total right hip arthroplasty Social History household members: none Smoking Status: Former smoker how long ago did patient quit smokin years ago alcohol intake: current alcohol intake frequency: a few times a month Alcohol type: wine substance use type: does not use caffeine: Yes Type: coffee Number of servings: 2 ROS ROS ED Constitutional Constitutional ED: Denies chills or fever(s) Eyes Eyes: Denies blurry vision or change in vision ENT ENT ED: Denies rhinorrhea or sore throat Cardiovascular Cardiovascular: Denies chest pain or palpitations Respiratory/Chest Respiratory/Chest: Denies cough or dyspnea Gastrointestinal Gastrointestinal: Denies nausea or vomiting Genitourinary Genitourinary ED: Denies dysuria or hematuria Musculoskeletal Musculoskeletal: Reports back pain; Denies neck pain Integumentary Denies abscess or rash Neurologic Neurologic: Denies headache(s) or weakness Allergic/Immunologic Allergic/Immunologic ED: Denies mouth swelling or urticaria EXAM Physical Exam Const Vital Signs: 07/15/22 16:13 07/15/22 17:13 07/15/22 18:00 Temperature 98.3 F Temperature Source Oral Pulse Rate 77 78 74 Pulse Rate [1 (Initial Baseline)] Pulse Rate [2] Pulse Rate [3] Respiratory Rate 18 12 22 H Respiratory Rate [1 (Initial Baseline)] Respiratory Rate [2] Respiratory Rate [3] Blood Pressure 155/71 H 160/78 H 154/67 H Blood Pressure [1 (Initial Baseline)] Blood Pressure [2] Blood Pressure [3] Blood Pressure Mean 99 105 96 Pulse Ox 97 100 97 Oxygen Delivery Method Room Air Room Air Room Air Oxygen Delivery Method [1 (Initial Baseline)] Oxygen Delivery Method [2] Oxygen Delivery Method [3] Oxygen Flow Rate (L/min) Oxygen Flow Rate (L/min) [2] Oxygen Flow Rate (L/min) [3] Fraction of Inspired Oxygen (FIO2) [3] 07/15/22 18:08 07/15/22 18:10 07/15/22 18:20 Temperature 98.9 F Temperature Source Pulse Rate 72 Pulse Rate [1 (Initial Baseline)] 78 Pulse Rate [2] 80 Pulse Rate [3] 69 Respiratory Rate 16 Respiratory Rate [1 (Initial Baseline)] 16 Respiratory Rate [2] 14 Respiratory Rate [3] 18 Blood Pressure 154/67 H Blood Pressure [1 (Initial Baseline)] 171/76 H Blood Pressure [2] 158/85 H Blood Pressure [3] 130/53 H Blood Pressure Mean Pulse Ox 97 Oxygen Delivery Method Room Air Nasal Cannula Oxygen Delivery Method [1 (Initial Baseline)] Room Air Oxygen Delivery Method [2] Non-Rebreather Oxygen Delivery Method [3] Non-Rebreather Oxygen Flow Rate (L/min) 6 Oxygen Flow Rate (L/min) [2] 15 Oxygen Flow Rate (L/min) [3] 15 Fraction of Inspired Oxygen (FIO2) [3] 15 07/15/22 18:25 07/15/22 18:30 Temperature Temperature Source Pulse Rate Pulse Rate [1 (Initial Baseline)] Pulse Rate [2] Pulse Rate [3] Respiratory Rate Respiratory Rate [1 (Initial Baseline)] Respiratory Rate [2] Respiratory Rate [3] Blood Pressure Blood Pressure [1 (Initial Baseline)] Blood Pressure [2] Blood Pressure [3] Blood Pressure Mean Pulse Ox Oxygen Delivery Method Nasal Cannula Room Air Oxygen Delivery Method [1 (Initial Baseline)] Oxygen Delivery Method [2] Oxygen Delivery Method [3] Oxygen Flow Rate (L/min) 2 Oxygen Flow Rate (L/min) [2] Oxygen Flow Rate (L/min) [3] Fraction of Inspired Oxygen (FIO2) [3] Positive well nourished and well developed General Appearance ED: well developed and NAD HEENT Reports moist mucous membranes Neck full ROM Resp normal respiratory effort and clear to auscultation bilaterally Cardio regular rate GI non-tender and non-distended Auscultation: normoactive bowel sounds Palpation: soft Extremity Extremity Narrative: There is tenderness over the right hip. There is shortening and mild internal rotation of the right lower extremity. Range of motion was limited in all motions of the right hip secondary to pain. Sensation was intact to light touch bilaterally in the lower extremities. Pedal pulses are equal bilaterally. Strength is 5/5 bilaterally in the lower extremities. Neuro oriented x3, CN's II-XII intact bilaterally, moves all extremities and no sensory deficits noted Sensorium / Orientation: alert Motor Exam: strength 5/5 throughout Psych mental status grossly normal Skin no wounds MDM MDM MDM Narrative Medical decision making narrative: Patient was given a dose of morphine initially. Patient was given a dose of Dilaudid. X-rays of the right hip were obtained. There are 3 views. On my interpretation, there is a superior and anterior dislocation of the right hip. There is no acute fracture. Radiologist also interpreted the x-rays and agrees. Patient was advised of the need for procedural sedation. Patient was given the opportunity ask questions. Patient had no further questions. Patient is agreeable with conscious sedation to reduce her hip. Patient was placed on continuous cardiac and pulse oximeter monitors. Timeout was performed. The patient was given a dose of 80 mg of propofol. Patient was sedated with this. The hip was reduced without difficulty. Patient did have a brief hypoxic episode that resolved with nonrebreather mask. Patient tolerated the procedure well. Repeat x-rays were obtained. There are 2 views. On my interpretation, there is good reduction of the previous dislocation. There is no acute frac ture. Patient was advised of her findings. Patient was placed in a knee immobilizer. Patient has an appoint with Dr. Kline tomorrow. Patient was instructed to follow-up with with him as scheduled. Patient understood and was agreeable with the plan. All questions were answered. Radiography Diagnostic Testing: Clinical Impression(s) from Imaging Studies Hip/Pelvis X-Ray 07/15/22 16:50 IMPRESSION: Superior dislocation of the right hip arthroplasty prosthesis. Electronically Signed: Yahir Blankenship MD at 17:30 EDT , Procedures Other Procedures Procedure(s): Patient was advised of the need for procedural sedation. Patient had a procedural sedation done approximately 3 weeks ago with her prior hip dislocation. Patient was given the opportunity ask questions. Patient had no further questions. Patient is agreeable to the procedural sedation. Patient was placed on continuous cardiac and pulse oximeter monitors. Patient was given 80 mg of propofol. While the patient was sedated, the right hip was reduced. The patient tolerated the procedure well. There was a brief hypoxic episode into the 80s. Patient was placed on a nonrebreather mask and this resolved. Patient woke up without difficulties. Total time of sedation was 10 minutes. Discharge Plan Triage Chief Complaint: Lower Extremity Injury ED Provider: Kirt Esteban Dx/Rx/DC Orders Clinical Impression: Dislocation of hip, right, closed, Hip pain, right Instructions: ED Hip Replace Dislocation Reduc Prescriptions: No Action levothyroxine [Synthroid] 88 mcg tablet 88 mcg PO DAILY Qty: 90 3RF Rx Instructions: Patient can only take brand name Synthroid rosuvastatin 5 mg tablet 5 mg PO DAILY cholecalciferol (vitamin D3) 125 mcg (5,000 unit) capsule 125 mcg PO DAILY hydralazine 50 mg tablet 50 mg PO TID gabapentin 100 mg capsule 100 mg PO DAILY tramadol 50 mg tablet 50 mg PO DAILY PRN (Reason: pain) Januvia 100 mg tablet 100 mg PO DAILY Rx Instructions: takes in evening losartan 100 mg tablet 100 mg PO DAILY acetaminophen 500 mg Tablet 1,000 mg PO Q6H PRN (Reason: Pain) folic acid 1 mg Tablet 1 mg PO DAILY insulin lispro [Humalog KwikPen Insulin] 100 unit/mL insulin pen 3 - 4 sliding scale dose SUBCUT Label Comments: inject 6 units subcutaneously with meals insulin glargine [Lantus Solostar U-100 Insulin] 100 unit/mL (3 mL) insulin pen 6 unit SUBCUT BREAKFAST Label Comments: inject 8 units UNDER THE SKIN IN THE MORNING Myrbetriq 25 mg Tablet Extended Release 24 Hr 25 mg PO DAILY lactulose 20 gram/30 mL solution 20 g PO DAILY PRN (Reason: constipation) Qty: 1200 0RF ferrous sulfate [iron] 325 mg (65 mg iron) tablet 325 mg PO DAILY sennosides-docusate sodium [Stool Softener-Stimulant Laxat] 8.6-50 mg Tablet 2 tab PO BID 30 Days Qty: 120 0RF aspirin 81 mg tablet,chewable 81 mg PO DAILY oxycodone-acetaminophen [Percocet] 5-325 mg tablet 1 tab PO Q6H PRN (Reason: pain) 3 Days Qty: 10 0RF amlodipine 10 mg tablet 10 mg PO QHS 30 Days Qty: 30 0RF Primary Care Provider: Karla Bhagat Referrals: Karla Bhagat MD [Primary Care Provider] - 1-2 Weeks Magdiel Kline MD [Med Staff - Active Staff] - Keep Cooper appointment Disposition Disposition: Home, Self Care
[2022-07-15] MEDS: Ondansetron 4 MG/2 ML Vial IV (16:34)
[2022-07-15] MEDS: Morphine 4 MG/ML Syringe IV (16:35)
--- NOTE | 2022-07-15 16:50 | RAD_ITS ---
STUDY: X-RAY - PELVIS AND RIGHT HIP REASON FOR EXAM: Female, 81 years old. Injury/Pain TECHNIQUE: 3 views of the pelvis and hip. COMPARISON: 06/07/2022 FINDINGS: There is a non-specific bowel gas pattern. Normal visualized soft tissue structures. Normal bilateral iliac wings, sacroiliac joints and visualized sacrum. Normal bilateral superior and inferior pubic rami. Normal pubic symphysis. Normal bilateral ischial tuberosities. Status post total hip arthroplasty. Superior dislocation of the femoral head portion of the prosthesis.. RAD/HIP, UNI W/ Pelvis 2-3 Views IMPRESSION: Superior dislocation of the right hip arthroplasty prosthesis. Electronically Signed: Yahir Blankenship MD at 17:30 EDT ,
[2022-07-15] MEDS: HYDROmorphone 1 MG/ML Syringe 0.5 MG IV (16:59)
[2022-07-15] MEDS: Propofol 200 MG/20 ML Vial IV BOLUS (18:23)
--- NOTE | 2022-07-15 18:30 | RAD_ITS ---
STUDY: X-RAY - PELVIS AND RIGHT HIP REASON FOR EXAM: Female, 81 years old. post reduction TECHNIQUE: XR Hip Unilateral with Pelvis when performed; 1 View COMPARISON: Study done earlier today. FINDINGS: There is a non-specific bowel gas pattern. Normal visualized soft tissue structures. There is an irregular calcific structure, with a popcorn morphology, consistent with a calcified uterine fibroid. Normal bilateral iliac wings, sacroiliac joints and visualized sacrum. Normal bilateral superior and inferior pubic rami. Normal pubic symphysis. Normal bilateral ischial tuberosities. Normal visualized femoral head. Normal acetabulum. Normal hip joint. RAD/Hip 1 view with Pelvis IMPRESSION: No acute findings. Successful reduction Electronically Signed: Ronald Paige MD at 18:56 EDT ,
== END 2022-07-15 19:28 | disposition home or self-care (01) ==
PROVIDERS: Emergency Provider Emergency Medicine; PCP Internal Medicine; Visit Provider Emergency Medicine
DX: S73.034A Other anterior dislocation of right hip, initial encounter (principal); I11.0 Hypertensive heart disease with heart failure; I50.9 Heart failure, unspecified; E11.9 Type 2 diabetes mellitus without complications; Z79.4 Long term (current) use of insulin; I25.10 Atherosclerotic heart disease of native coronary artery without angina pectoris; E78.5 Hyperlipidemia, unspecified; Z87.891 Personal history of nicotine dependence; X50.1XXA Overexertion from prolonged static or awkward postures, initial encounter; Z79.82 Long term (current) use of aspirin; Z79.899 Other long term (current) drug therapy; Z96.641 Presence of right artificial hip joint
CPT/HCPCS: 27265; 73501; 73502; 96374; 96375; 99285; J7030; A4216; J2405

== ENCOUNTER → 2022-09-24 | Outpatient (CLI) | payer MEDICARE, SELFPAY ==
--- NOTE | 2022-09-24 15:42 | BD_ITS ---
STUDY: DUAL ENERGY X-RAY ABSORPTIOMETRY / DXA REASON FOR EXAM: Female, 82 years old. [id number] TECHNIQUE: Bone Mineral Density (BMD) measurements of lumbar spine and left hip were obtained. COMPARISON: Comparison is made with prior study dated 05/18/2019. FINDINGS: Lumbar Spine (L1-L4): g/cm2 (0.974) / T-score (-0.9) / Z-score (2.0) Findings are suggestive of normal bone density with a low fracture risk. Left Femur Total: g/cm2 (0.651) / T-score (-2.4) / Z-score (-0.1) Left Femoral Neck: g/cm2 (0.537) / T-score (-2.8) / Z-score (-0.3) The T-Scores on the most recent prior examination were: Lumbar Spine (L1-L4): There has been improvement of bone density since the previous examination. Left Femur Total: which represents a worsening of 2%. BD/Dexa Bone Density Study IMPRESSION: The patient is considered osteoporotic as outlined below according to World [employer] Organization (WHO) criteria with a high fracture risk. There has been worsening of bone density since the previous examination. Reference Information: The T-score is the number of standard deviations above or below the standard which is normal for young adults at their peak bone mineral density. The World Health Organization (WHO) interprets the T-scores as follows: Above -1 Normal bone density Between -1 and -2.5 Osteopenia Equal to / or below -2.5 Osteoporosis As a practical clinical guideline, osteopenia may be graded as follows: Mild -1 through -1.5 Moderate -1.6 through -2.0 Severe -2.1 through -2.4 The Z-score is the number of standard deviations above or below age-matched controls. A Z-score of less than -1.5 would be considered abnormal. References: 1. NIH Osteoporosis and Related Bone Diseases www osteo.org 2. International Society for Clinical Densitometry www iscd.org 3. National Osteoporosis Foundation www nof.org Electronically Signed: Holland Ferreira MD at 13:38 EDT ,
== END | disposition home or self-care (01) ==
LOC: OPBD 15:35
PROVIDERS: PCP Internal Medicine; Visit Provider Internal Medicine
DX: Z78.0 Asymptomatic menopausal state (principal)
CPT/HCPCS: 77080

== ENCOUNTER → 2022-10-30 | Outpatient (CLI) | payer MEDICARE, SELFPAY ==
--- NOTE | 2022-10-30 08:57 | US_ITS ---
STUDY: ULTRASOUND BREAST - LEFT REASON FOR EXAM: Female, 82 years old. Palpable lump left breast. TECHNIQUE: Axial and longitudinal images of the LEFT breast were performed with a high resolution ultrasound transducer. # OF IMAGES: 15 COMPARISON: Comparison is made with prior mammogram done earlier in the day. FINDINGS: LEFT Breast: The palpable abnormality corresponds to an 8 mm x 10 mm x 8 mm hypoechoic irregular solid nodule at the 3 o''clock position of the breast adjacent to the areola. Biopsy recommended. US/Breast Limited Unilateral IMPRESSION: The palpable abnormality corresponds to an 8 mm x 10 mm x 8 mm hypoechoic irregular solid nodule at the 3 o''clock position of the breast adjacent to the areola. Biopsy recommended. ASSESSMENT CATEGORY: BIRADS Category 4: Suspicious - Biopsy Should Be Considered. A letter regarding these results will be sent to the patient by the facility within 30 days. Electronically Signed: Holland Ferreira MD at 10:37 EST ,
--- NOTE | 2022-10-30 08:57 | BI_ITS ---
MAMMOGRAPHY - BILATERAL DIAGNOSTIC REASON FOR EXAM: Female, 82 years old. Left breast lump. PERTINENT HISTORY: Mother with breast cancer. Aunt with breast cancer. TECHNIQUE: Digital bilateral breast josiane (3D mammographic acquisition) in the CC and MLO projections. 2-D mediolateral oblique (MLO) and craniocaudad (CC) views of both breasts were obtained. CAD: Full Field Digital Mammography with Computer Added Detection was performed. COMPARISON: Comparison is made with prior study dated 11/14/2020 and 05/18/2019. FINDINGS: Breast Composition: The breasts are extremely dense, which lowers the sensitivity of mammography. There are no dominant masses or suspicious calcifications. No other significant abnormalities are identified. There has been no significant change since the prior study. BI/DIAG MAMM W/CAD, BILAT IMPRESSION: Stable bilateral diagnostic mammogram. With the patient''s history of a palpable lump in the slightly upper lateral aspect of the left breast, correlation with ultrasound is recommended. ASSESSMENT CATEGORY: BIRADS Category 0: Incomplete. Need additional imaging evaluation. A letter regarding these results will be sent to the patient by the facility within 30 days. Approximately 10% of breast cancers are not detected by mammography. A normal mammogram should not delay biopsy of a clinically suspicious abnormality. Electronically Signed: Holland Ferreira MD at 9:48 EST ,
== END | disposition home or self-care (01) ==
LOC: OPBI 08:55
PROVIDERS: PCP Internal Medicine; Visit Provider Internal Medicine
DX: R92.2 Inconclusive mammogram (principal); N63.0 Unspecified lump in unspecified breast
CPT/HCPCS: 76642; 77062; 77066; G0279

== ENCOUNTER 2022-12-19 10:49 | Inpatient (IN) | payer MEDICARE, SELFPAY ==
[2022-12-19] VITALS (13 sets, daily range): BP systolic 131–149; BP diastolic 61–81; PULSE 67–98; RESP 16–18; TEMP 36.2–37.2; O2SAT 86–98; BMI 20.6
--- NOTE | 2022-12-19 11:00 | EKG12_ITS ---
Test Reason : CP Blood Pressure : / mmHG Vent. Rate : 080 BPM Atrial Rate : 080 BPM P-R Int : 178 ms QRS Dur : 082 ms QT Int : 406 ms P-R-T Axes : 075 086 -29 degrees QTc Int : 468 ms Normal sinus rhythm Possible Left atrial enlargement Septal infarct , age undetermined T wave abnormality, consider anterior ischemia Abnormal ECG Confirmed by NIDHI JOLLY, LAINE ([id number]), editor news CELESTE RODRIGUEZ ([id number]) on 12/21/2022 10:46:47 AM Referred By: Confirmed By:LAINE TERRELL MD
[2022-12-19] MEDS: Aspirin 81 MG TAB.CHEW 324 MG PO (11:12)
--- NOTE | 2022-12-19 11:37 | CT_ITS ---
STUDY: CTA CHEST REASON FOR EXAM: Female, 82 years old. chest pain RADIATION DOSAGE (If Supplied By Facility): CTDIvol = ( 11.96 ) mGy, DLP = ( 226.68 ) mGycm TECHNIQUE: The examination was performed with the intravenous administration of IV 75mL [id number]-370. Post-processing of the angiographic images was performed, with multiplanar reformation and 3D reconstruction. Individualized dose optimization techniques were used for this CT. COMPARISON: Chest x-ray dated December 19, 2022 FINDINGS: Mild to moderate groundglass edema and developing consolidation is present in the bilateral lower lobes and associated with small pleural effusions, right greater than left. There is groundglass pattern is typically associated with Covid-19 pneumonia. Fibrotic scarring and subsegmental atelectasis is seen in the lingula of the left upper lobe. Both lungs are hyperinflated. No nodules are present. Normal enhancement of the main pulmonary artery and right and left pulmonary arteries. Normal enhancement of the bilateral peripheral pulmonary arteries. There is no demonstrated pulmonary embolism. There is atherosclerotic calcification of the aortic arch with tortuosity. There is no demonstrated aortic dissection. There is mild cardiac enlargement. No pericardial effusion is present. There are calcifications of the coronary arteries. Normal mediastinum. Normal hilar regions. Normal visualized trachea and bronchi. The lungs are well expanded. Normal chest wall structures. There are degenerative changes of thoracic spine. Significant S-shaped scoliosis. Normal visualized upper abdomen. CT/CTA Chest W/WO Contrast IMPRESSION: 1. Mild to moderate groundglass edema and developing consolidation is present in the bilateral lower lobes and associated with small pleural effusions, right greater than left. There is groundglass pattern is typically associated with Covid-19 pneumonia. Fibrotic scarring and subsegmental atelectasis is seen in the lingula of the left upper lobe. Both lungs are hyperinflated. 2. Negative CTA chest examination, without a demonstrated pulmonary embolism or arterial dissection. 3. Mild cardiomegaly Electronically Signed: Vikash Baker MD at 12:53 EST ,
--- NOTE | 2022-12-19 11:38 | ED.VIS.DYS ---
HPI History of Present Illness Chief Complaint: Shortness of Breath Narrative Narrative: 82-year-old female presenting with chest pain and shortness of breath. She states that its the upper chest that hurts. She describes it as a dull ache. Patient states this started yesterday. She states that during the day it came and went. It was worse when she stood and walked. Patient denies lightheadedness or dizziness. She does feel short of breath with exertion. She states that her chest hurt all night long while she was sleeping. No history of [place] and reports no history of CAD. Patient does have history of diabetes, hypertension, hyperlipidemia, SIADH, hyponatremia. Patient states that she recently had hip surgery over the summer and she has a recent diagnosis of breast cancer and supposed to have surgery for the breast cancer in December. No history of DVT/PE. Patient's T-max is 99.9 which she states is high for her. Today it is 97 ?F. She reports minimal cough. She does relate body aches and chills. PFSH PFS Medical History Anxiety Avascular necrosis of bone of hip Back pain Bilateral carotid bruits Bladder disease Cancer Cardiology follow-up encounter Carotid artery stenosis Carotid stenosis, bilateral Chronic constipation Constipation Coronary artery disease 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 Depression Diabetes mellitus, type II Dietary restriction Dizziness Easy bruising Essential hypertension Heartburn High cholesterol History of CHF (congestive heart failure) History of echocardiogram History of edema History of irregular heartbeat History of pain when walking History of renal disease History of steroid therapy History of stress test Hyperlipidemia Hypertension Hyponatremia with extracellular fluid depletion Hypothyroidism Injury of head and neck Leg cramps Loss of hearing Osteoporosis Pain Pneumonia Shortness of breath on exertion Syncope Thyroid disease Transaminitis Uses wheelchair Valvular heart disease Vitamin D deficiency Wears glasses Wears partial dentures Home Medications Synthroid 88 mcg tablet (levothyroxine) 88 mcg PO DAILY thyroid #90 tabs 07/16/20 [Rx Last Taken 12/19/22] rosuvastatin 5 mg tablet 5 mg PO DAILY cholesterol 10/21/20 [History Last Taken 12/19/22] cholecalciferol (vitamin D3) 125 mcg (5,000 unit) capsule 125 mcg PO DAILY supplement 10/30/20 [History Last Taken 12/18/22] sitagliptin phosphate 100 mg tablet (Januvia) 100 mg PO DAILY Blood sugar 09/21/21 [History Last Taken 12/18/22] losartan 100 mg tablet 100 mg PO DAILY BP 09/23/21 [History Last Taken 12/19/22] hydralazine 50 mg tablet 50 mg PO TID BP 11/04/21 [History Last Taken 12/19/22] amlodipine 10 mg tablet 10 mg PO QHS BP 30 days #30 tabs 02/09/22 [Rx Last Taken 12/18/22] acetaminophen 500 mg tablet 1,000 mg PO Q6H PRN Pain 04/15/22 [History Last Taken 3 Days Ago ~12/16/22] folic acid 1 mg tablet 1 mg PO DAILY Supplement 04/15/22 [History Last Taken 12/18/22] insulin glargine 100 unit/mL (3 mL) subcutaneous pen (Lantus Solostar U-100 Insulin) 6 unit subcut BREAKFAST Diabetes 04/15/22 [History Last Taken 12/18/22] insulin lispro 100 unit/mL subcutaneous pen (Humalog KwikPen (U-100) Insulin) 3 - 4 sliding scale dose subcut TID DM 04/15/22 [History Last Taken 12/18/22] mirabegron 25 mg tablet,extended release 24 hr (Myrbetriq) 25 mg PO DAILY Check with primary doctor 04/15/22 [History Last Taken 12/18/22] sennosides 8.6 mg-docusate sodium 50 mg tablet (Stool Softener-Stimulant Laxative) 2 tab PO BID 30 days #120 tabs 04/29/22 [Rx Last Taken 12/18/22] aspirin 81 mg chewable tablet 81 mg PO DAILY Heart 05/29/22 [History Last Taken 12/19/22] ferrous sulfate 325 mg (65 mg iron) tablet (iron) 325 mg PO DAILY Supplement 05/29/22 [History Last Taken 12/18/22] tramadol 50 mg tablet 50 mg PO DAILY PRN pain 05/29/22 [History Last Taken 12/19/22] Allergy/AdvReac Type Severity Reaction Status Date / Time metformin Allergy Severe Rash Verified 12/19/22 10:50 neomycin [Neomycin] Allergy Severe Unknown Verified 12/19/22 10:50 Tetracyclines Allergy Severe Anaphylaxis Verified 12/19/22 10:50 Sulfa (Sulfonamide Allergy Constipatio Verified 12/19/22 10:50 Antibiotics) n Family History Mother Thyroid disorder Father Alzheimer disease Surgical History History of cardiac catheterization History of foot surgery History of left heart catheterization (12/28/14) History of right hip replacement History of thyroidectomy History of tonsillectomy and adenoidectomy Hx of colonoscopy S/P total right hip arthroplasty Social History household members: none Smoking Status: Former smoker how long ago did patient quit smokin years ago alcohol intake: current alcohol intake frequency: a few times a month Alcohol type: wine substance use type: does not use caffeine: Yes Type: coffee Number of servings: 2 ROS ROS ED Constitutional Constitutional ED: Reports other Details: Subjective fever Eyes Eyes: Denies change in vision or diplopia ENT ENT ED: Denies rhinorrhea or sore throat Cardiovascular Cardiovascular: Denies chest pain or palpitations Respiratory/Chest Respiratory/Chest: Reports cough and dyspnea Gastrointestinal Gastrointestinal: Denies abdominal pain, melena, nausea or vomiting Genitourinary Genitourinary ED: Denies dysuria or hematuria Musculoskeletal Musculoskeletal: Reports myalgias Integumentary Denies abscess or Abrasions Neurologic Neurologic: Denies headache(s) or paresthesias Psychiatric Psychiatric: Denies anxiety or depression EXAM Physical Exam Const Vital Signs: 12/19/22 10:51 12/19/22 11:03 12/19/22 11:04 Temperature 97.2 F L Temperature Source Temporal Pulse Rate 84 Respiratory Rate 18 Respiratory Effort Blood Pressure 131/61 H Blood Pressure Mean 84 Pulse Ox 94 90 93 Oxygen Delivery Method Room Air Room Air Nasal Cannula Oxygen Flow Rate (L/min) 2 12/19/22 11:07 12/19/22 11:08 12/19/22 12:07 Temperature Temperature Source Pulse Rate Respiratory Rate Respiratory Effort Short of Breath Blood Pressure Blood Pressure Mean Pulse Ox 94 86 Oxygen Delivery Method Nasal Cannula Nasal Cannula Room Air Oxygen Flow Rate (L/min) 2 2 12/19/22 12:58 12/19/22 14:51 Temperature Temperature Source Pulse Rate 67 Respiratory Rate 16 Respiratory Effort Blood Pressure 147/67 H Blood Pressure Mean 93 Pulse Ox 93 93 Oxygen Delivery Method Nasal Cannula Room Air Oxygen Flow Rate (L/min) 2 Positive well nourished General Appearance ED: NAD; Negative for pallor HEENT Reports moist mucous membranes atraumatic Eyes PERRL and EOMs intact bilaterally General Eye ED: Negative for pale conjunctiva or scleral icterus Neck no lymphadenopathy and supple Resp normal respiratory effort and clear to auscultation bilaterally Auscultation: Negative for rales, rhonchi or wheezes Cardio regular rate and regular rhythm GI non-tender Extremity normal to inspection Neuro oriented x3 and CN's II-XII intact bilaterally Sensorium / Orientation: alert Motor Exam: strength 5/5 throughout Psych mental status grossly normal Skin no wounds and skin turgor normal General Skin Exam: Negative for jaundice or pallor MDM MDM MDM Narrative Medical decision making narrative: Patient presenting with chest pain and shortness of breath which started yesterday. She is not had a fever but is felt feverish. She complains of body aches and chills. Differential diagnosis includes but is not limited to is pneumonia, viral illness, ACS, pulmonary embolism. due to her chest pain I did obtain an EKG which shows a sinus rhythm at 80 bpm on my interpretation. T wave inversions noted in V2, V3, lead III. No ST elevation or depression. Chest x-ray was obtained to look for pneumonia given patient's symptoms and on my interpretation shows bilateral lower lobe infiltrate and effusion. CBC was obtained to assess for leukocytosis and differential. White blood cell count is 6.1 and within normal limits. Hemoglobin 11.0, platelets 181. BMP to assess kidney function and electrolytes as well as anion gap. Creatinine 0.74. GFR 79. Glucose slightly elevated at 294 without anion gap. High-sensitivity troponin to assess for cardiac source of this is 40. Patient became hypoxic and desatted down to 86%. Given her history of hip surgery and recent diagnosis of breast cancer we will obtain a CTA to rule out PE. This was negative for PE or dissection. It does show bilateral pneumonia. Given the patient's current need for oxygen with pneumonia I recommended admission. I discussed this with the hospitalist who recommended starting IV Levaquin. First dose was given in the ER. Impression: 1. Bilateral pneumonia 2. Hypoxic respiratory failure Lab Data Attestation: I reviewed the patient's lab results. Labs: Laboratory Results - last 24 hr 12/19/22 12/19/22 12/19/22 11:25 11:25 14:15 WBC 6.1 RBC 3.90 L Hgb 11.0 L Hct 33.5 L MCV 85.9 MCH 28.2 MCHC 32.8 RDW Std Deviation 42.1 RDW Coeff of Obed 13.4 Plt Count 181 MPV 10.4 Immature Gran % (Auto) 0.700 Neut % (Auto) 71.8 H Lymph % (Auto) 10.8 L [place] % (Auto) 14.6 H Eos % (Auto) 1.6 Baso % (Auto) 0.5 Absolute Neuts (auto) 4.4 Absolute Lymphs (auto) 0.66 L Nucleated RBC % 0 Sodium 133 L Potassium 4.1 Chloride 102 Carbon Dioxide 26.0 Anion Gap 5 BUN 22 H Creatinine 0.74 Estim Creat Clear Calc 33.12 Est GFR (MDRD) Af Amer 96 Est GFR (MDRD) Non-Af 79 BUN/Creatinine Ratio 29.7 H Glucose 294 H Calcium 9.2 Troponin I High Sens 40 38 Radiography Diagnostic Testing: Clinical Impression(s) from Imaging Studies Chest CTA 12/19/22 11:37 IMPRESSION: 1. Mild to moderate groundglass edema and developing consolidation is present in the bilateral lower lobes and associated with small pleural effusions, right greater than left. There is groundglass pattern is typically associated with Covid-19 pneumonia. Fibrotic scarring and subsegmental atelectasis is seen in the lingula of the left upper lobe. Both lungs are hyperinflated. 2. Negative CTA chest examination, without a demonstrated pulmonary embolism or arterial dissection. 3. Mild cardiomegaly Electronically Signed: Vikash Baker MD at 12:53 EST Reading Location ID and State: [facility] / [place] , Service support , Chest X-Ray 12/19/22 12:24 IMPRESSION: 1. Mild right lower lobe and moderate left lower lobe pneumonic consolidation is present and associated with small bilateral pleural effusions. Electronically Signed: Vikash Baker MD at 12:39 EST , Discharge Plan Triage Chief Complaint: Shortness of Breath ED Provider: Zafar Lopez Dx/Rx/DC Orders Prescriptions: No Action levothyroxine [Synthroid] 88 mcg tablet 88 mcg PO DAILY Qty: 90 3RF Rx Instructions: Patient can only take brand name Synthroid rosuvastatin 5 mg tablet 5 mg PO DAILY cholecalciferol (vitamin D3) 125 mcg (5,000 unit) capsule 125 mcg PO DAILY hydralazine 50 mg tablet 50 mg PO TID tramadol 50 mg tablet 50 mg PO DAILY PRN (Reason: pain) Januvia 100 mg tablet 100 mg PO DAILY Rx Instructions: takes in evening losartan 100 mg tablet 100 mg PO DAILY acetaminophen 500 mg Tablet 1,000 mg PO Q6H PRN (Reason: Pain) folic acid 1 mg Tablet 1 mg PO DAILY insulin lispro [Humalog KwikPen Insulin] 100 unit/mL insulin pen 3 - 4 sliding scale dose SUBCUT TID Label Comments: inject 6 units subcutaneously with meals insulin glargine [Lantus Solostar U-100 Insulin] 100 unit/mL (3 mL) insulin pen 6 unit SUBCUT BREAKFAST Label Comments: inject 8 units UNDER THE SKIN IN THE MORNING Myrbetriq 25 mg Tablet Extended Release 24 Hr 25 mg PO DAILY ferrous sulfate [iron] 325 mg (65 mg iron) tablet 325 mg PO DAILY sennosides-docusate sodium [Stool Softener-Stimulant Laxat] 8.6-50 mg Tablet 2 tab PO BID 30 Days Qty: 120 0RF aspirin 81 mg tablet,chewable 81 mg PO DAILY amlodipine 10 mg tablet 10 mg PO QHS 30 Days Qty: 30 0RF Primary Care Provider: Karla Bhagat Referrals: Karla Bhagat MD [Primary Care Provider] -
[2022-12-19 11:42] LABS: Absolute Lymphocyte Count 0.66 X10^3/uL (0.83-4.51); Absolute Neutrophil Count 4.4 X10^3/uL (2.0-7.7); Basophil# 0.03 X10^3/uL; Basophil% 0.5 % (0-1); Eosinophils% 1.6 % (0-5); Hematocrit 33.5 % (37-47); Lymphocyte # 0.66 X10^3/ul (0.83-4.51); Lymphocyte % 10.8 % (19-41); Mean Corp Hgb Conc 32.8 g/dL (32-36); Mean Corpuscular Hgb 28.2 pg (27.0-32.0); Mean Corpuscular Volume 85.9 fL (81-99); Mean Platelet Vol. 10.4 fl (6.2-12.0); Monocyte# 0.89 X10^3/uL; Monocyte% 14.6 % (0-10); NRBC Flagged by Analyzer 0 % (0-5); Neutrophil # 4.37 X10^3/uL (2.7-7.7); Neutrophil % 71.8 % (47-70); Platelet Count 181 K/mm3 (150-450); RBC Distribution Width CV 13.4 % (11.6-14.6); RBC Distribution Width SD 42.1 fl (35.1-43.9); White Blood Count 6.1 K/mm3 (4.4-11.0)
[2022-12-19 12:00] LABS: Anion Gap 5 (5-15); BUN 22 mg/dL (7-18); BUN/Creat Ratio 29.7 RATIO (10-20); Calcium,Total 9.2 mg/dL (8.5-10.1); Chloride 102 mmol/L (98-107); Creatinine, Serum 0.74 mg/dL (0.55-1.02); EST Glomerular Filtration Rate 79 mL/min (>60); Est Glom Filt Rate - Afr Amer 96 mL/min (>60); Estimated Creatinine Clearance 33.12 ml/min; Glucose 294 mg/dL (74-106); Potassium 4.1 mmol/L (3.5-5.1); Sodium Level 133 mmol/L (136-145); Troponin-I HS (w/2H Reflex) 40 pg/mL (3.0-54.0)
--- NOTE | 2022-12-19 12:24 | RAD_ITS ---
STUDY: X-RAY CHEST REASON FOR EXAM: Female, 82 years old. chest pain SOB, AND CHEST PAIN WITH BREATHING STARTED YESTERDAY TECHNIQUE: Single AP portable view of the chest. COMPARISON: June 07, 2022 FINDINGS: Mild right lower lobe and moderate left lower lobe pneumonic consolidation is present and associated with small bilateral pleural effusions. The remaining lung holliday are clear. Chronic hyperinflation of both lungs due to COPD. Normal size heart. Normal mediastinum and dave. Normal visualized pulmonary arteries. There is atherosclerotic calcification of the aortic arch with tortuosity. There are diffuse degenerative changes of the visualized thoracic spine. Significant S-shaped scoliosis. Normal visualized ribs, clavicles, and shoulders. There is no demonstrated abnormality of the visualized soft tissue structures of the upper abdomen. RAD/Chest 1 View (Portable) IMPRESSION: 1. Mild right lower lobe and moderate left lower lobe pneumonic consolidation is present and associated with small bilateral pleural effusions. Electronically Signed: Vikash Baker MD at 12:39 EST ,
[2022-12-19 13:40] LABS: Reflex Troponin-HS? (from REC) Y
[2022-12-19 14:39] LABS: Troponin-I HS 38 pg/mL (3.0-54.0)
[2022-12-19] MEDS: levoFLOXacin IV 750 MG/150 ML BAG 100 MG IV (15:09)
--- NOTE | 2022-12-19 16:09 | HP.PCM.HOS_ITS ---
HPI - General General Date of Admission: 12/19/22 HPI Narrative ELLEN ESTRADA, is a 82 F who presents to the hospital with shortness of breath and periodic chest pain. She says that the shortness of breath started about a week ago on she has been having some upper chest pain. Troponins in the ER were negative however CT of the chest was negative for PE but did show bilateral lower lobe pneumonias viral versus bacterial, she does have a cough but is nonproductive. She does have some small pleural effusions as well. Renal function is normal, she is afebrile without any leukocytosis. She did drop her oxygen at rest down to 86% and was started on 2 L nasal cannula. [facility] Medical History Anxiety Avascular necrosis of bone of hip Back pain Bilateral carotid bruits Bladder disease Cancer Cardiology follow-up encounter Carotid artery stenosis Carotid stenosis, bilateral Chronic constipation Constipation Coronary artery disease 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 Depression Diabetes mellitus, type II Dietary restriction Dizziness Easy bruising Essential hypertension Heartburn High cholesterol History of CHF (congestive heart failure) History of echocardiogram History of edema History of irregular heartbeat History of pain when walking History of renal disease History of steroid therapy History of stress test Hyperlipidemia Hypertension Hyponatremia with extracellular fluid depletion Hypothyroidism Injury of head and neck Leg cramps Loss of hearing Osteoporosis Pain Pneumonia Shortness of breath on exertion Syncope Thyroid disease Transaminitis Uses wheelchair Valvular heart disease Vitamin D deficiency Wears glasses Wears partial dentures Home Medications Synthroid 88 mcg tablet (levothyroxine) 88 mcg PO DAILY thyroid #90 tabs 07/16/20 [Rx Last Taken 12/19/22] rosuvastatin 5 mg tablet 5 mg PO DAILY cholesterol 10/21/20 [History Last Taken 12/19/22] cholecalciferol (vitamin D3) 125 mcg (5,000 unit) capsule 125 mcg PO DAILY supplement 10/30/20 [History Last Taken 12/18/22] sitagliptin phosphate 100 mg tablet (Januvia) 100 mg PO DAILY Blood sugar 09/21/21 [History Last Taken 12/18/22] losartan 100 mg tablet 100 mg PO DAILY BP 09/23/21 [History Last Taken 12/19/22] hydralazine 50 mg tablet 50 mg PO TID BP 11/04/21 [History Last Taken 12/19/22] amlodipine 10 mg tablet 10 mg PO QHS BP 30 days #30 tabs 02/09/22 [Rx Last Taken 12/18/22] acetaminophen 500 mg tablet 1,000 mg PO Q6H PRN Pain 04/15/22 [History Last Taken 3 Days Ago ~12/16/22] folic acid 1 mg tablet 1 mg PO DAILY Supplement 04/15/22 [History Last Taken 12/18/22] insulin glargine 100 unit/mL (3 mL) subcutaneous pen (Lantus Solostar U-100 Insulin) 6 unit subcut BREAKFAST Diabetes 04/15/22 [History Last Taken 12/18/22] insulin lispro 100 unit/mL subcutaneous pen (Humalog KwikPen (U-100) Insulin) 3 - 4 sliding scale dose subcut TID DM 04/15/22 [History Last Taken 12/18/22] mirabegron 25 mg tablet,extended release 24 hr (Myrbetriq) 25 mg PO DAILY Check with primary doctor 04/15/22 [History Last Taken 12/18/22] sennosides 8.6 mg-docusate sodium 50 mg tablet (Stool Softener-Stimulant Laxative) 2 tab PO BID 30 days #120 tabs 04/29/22 [Rx Last Taken 12/18/22] aspirin 81 mg chewable tablet 81 mg PO DAILY Heart 05/29/22 [History Last Taken 12/19/22] ferrous sulfate 325 mg (65 mg iron) tablet (iron) 325 mg PO DAILY Supplement 05/29/22 [History Last Taken 12/18/22] tramadol 50 mg tablet 50 mg PO DAILY PRN pain 05/29/22 [History Last Taken 12/19/22] Allergy/AdvReac Type Severity Reaction Status Date / Time metformin Allergy Severe Rash Verified 12/19/22 10:50 neomycin [Neomycin] Allergy Severe Unknown Verified 12/19/22 10:50 Tetracyclines Allergy Severe Anaphylaxis Verified 12/19/22 10:50 Sulfa (Sulfonamide Allergy Constipatio Verified 12/19/22 10:50 Antibiotics) n Family History Mother Thyroid disorder Father Alzheimer disease Surgical History History of cardiac catheterization History of foot surgery History of left heart catheterization (12/28/14) History of right hip replacement History of thyroidectomy History of tonsillectomy and adenoidectomy Hx of colonoscopy S/P total right hip arthroplasty Social History household members: none Smoking Status: Former smoker how long ago did patient quit smokin years ago alcohol intake: current alcohol intake frequency: a few times a month Alcohol type: wine substance use type: does not use caffeine: Yes Type: coffee Number of servings: 2 ROS Constitutional Constitutional: Reports chills and fever(s); Denies fatigue or malaise Eyes Eyes: Denies blurry vision ENT HEENT: Denies headache(s) or nasal discharge Cardiovascular Cardiovascular: Denies chest pain, dyspnea on exertion or syncope Respiratory/Chest Respiratory/Chest: Reports cough and shortness of breath at rest; Denies shortness of breath with exertion Gastrointestinal Gastrointestinal: Denies constipation, diarrhea, nausea or vomiting Genitourinary Genitourinary: Denies dysuria Neurologic Neurologic: Denies focal weakness, numbness or tremor(s) Psychiatric Psychiatric: Denies anxiety or depression Vital Signs Vital Signs Vital Signs: 12/19/22 10:51 12/19/22 11:03 12/19/22 11:04 Temperature 97.2 F L Temperature Source Temporal Pulse Rate 84 Respiratory Rate 18 Respiratory Effort Blood Pressure 131/61 H Blood Pressure Mean 84 Pulse Ox 94 90 93 Oxygen Delivery Method Room Air Room Air Nasal Cannula Oxygen Flow Rate (L/min) 2 12/19/22 11:07 12/19/22 11:08 12/19/22 12:07 Temperature Temperature Source Pulse Rate Respiratory Rate Respiratory Effort Short of Breath Blood Pressure Blood Pressure Mean Pulse Ox 94 86 Oxygen Delivery Method Nasal Cannula Nasal Cannula Room Air Oxygen Flow Rate (L/min) 2 2 12/19/22 12:58 12/19/22 14:51 12/19/22 15:48 Temperature 98.8 F Temperature Source Temporal Pulse Rate 67 98 Respiratory Rate 16 16 Respiratory Effort Blood Pressure 147/67 H 149/81 H Blood Pressure Mean 93 103 Pulse Ox 93 93 98 Oxygen Delivery Method Nasal Cannula Room Air Oxygen Flow Rate (L/min) 2 Weight Weight: 113 lb Body Mass Index (BMI) 20.6 Physical Exam Narrative General: Alert, Oriented x3, Cooperative, No apparent distress HEENT: Atraumatic, PERRLA, EOMI, Normocephalic Oral: Moist Mucosa Neck: Supple, No JVD Lungs: Diminished at bases, Normal air movement, No rhonchi, No wheeze, No rales Cardiovascular: Regular rate, Regular Rhythm, Normal S1, Normal S2, No murmurs Abdomen: Soft, Non Tender, Non-Distended, No Hepato-splenomegaly Extremities: No edema, Capillary Refill Less than 3 Seconds Skin: No rashes, No breakdown Musculoskeletal: No Tenderness to Palpation of Joints or Extremities Neurological: Cranial nerves II-XII grossly intact, Motor Exam 5/5 strength throughout, Sensory exam intact to light touch and pain Psych/Mental Status: Normal Affect, Appropriate Results Lab / Micro Data Result Diagrams: 12/19/22 11:25 12/19/22 11:25 Labs: Laboratory Results - last 24 hr 12/19/22 11:25: WBC 6.1, RBC 3.90 L, Hgb 11.0 L, Hct 33.5 L, MCV 85.9, MCH 28.2, MCHC 32.8, RDW Std Deviation 42.1, RDW Coeff of Obed 13.4, Plt Count 181, MPV 10.4, Immature Gran % (Auto) 0.700, Neut % (Auto) 71.8 H, Lymph % (Auto) 10.8 L, [place] % (Auto) 14.6 H, Eos % (Auto) 1.6, Baso % (Auto) 0.5, Absolute Neuts (auto) 4.4, Absolute Lymphs (auto) 0.66 L, Nucleated RBC % 0 12/19/22 11:25: Sodium 133 L, Potassium 4.1, Chloride 102, Carbon Dioxide 26.0, Anion Gap 5, BUN 22 H, Creatinine 0.74, Estim Creat Clear Calc 33.12, Est GFR (MDRD) Af Amer 96, Est GFR (MDRD) Non-Af 79, BUN/Creatinine Ratio 29.7 H, Glucose 294 H, Calcium 9.2, Troponin I High Sens 40 12/19/22 14:15: Troponin I High Sens 38 Micro: Microbiology 12/19/22 13:30 Nasal Secretion SARS-CoV-2 & FLU Antigen (Rapid) - Final Radiology Impression Chest CTA 12/19/22 11:37 IMPRESSION: 1. Mild to moderate groundglass edema and developing consolidation is present in the bilateral lower lobes and associated with small pleural effusions, right greater than left. There is groundglass pattern is typically associated with Covid-19 pneumonia. Fibrotic scarring and subsegmental atelectasis is seen in the lingula of the left upper lobe. Both lungs are hyperinflated. 2. Negative CTA chest examination, without a demonstrated pulmonary embolism or arterial dissection. 3. Mild cardiomegaly Electronically Signed: Vikash Baker MD at 12:53 EST Reading Location ID and State: [address] [place] [address] , Service support , Chest X-Ray 12/19/22 12:24 IMPRESSION: 1. Mild right lower lobe and moderate left lower lobe pneumonic consolidation is present and associated with small bilateral pleural effusions. Electronically Signed: Vikash Baker MD at 12:39 EST Reading Location ID and State: [address] [place] [address] , Service support , Assessment & Plan Assessment/Plan (1) Bilateral pneumonia: (2) Hypoxia: PLAN: Plan 1. Hypoxia secondary to bilateral pneumonia ? We will place her on Levaquin 750 mg every 48 hours secondary to her creatin ine clearance ? We will obtain a respiratory panel, flu and COVID were negative ? We will obtain an ambulatory pulse ox in the morning ? Given her history of diastolic heart failure if she remains hypoxic in the morning can trial her on some Lasix 2. Chronic diastolic CHF/bilateral carotid stenosis/HTN/HLD ? Blood pressures are stable, can resume her home blood pressure medications ? Continue with Crestor ? Continue with aspirin ? Echo in March with an EF of 70% and diastolic dysfunction, RVSP of 37 mmHg 3. DM2 ? Stable, continue with her home long-acting insulin, hold Januvia ? Accu-Cheks AC at bedtime ? Sliding scale insulin, will make adjustments as necessary 4. Hypothyroidism ? Stable ? Continue with Synthroid DVT: SCDs Charges/Coding Visit Charges Inpatient E&M: 53470 Init Hosp L2
[2022-12-19 17:41] LABS: Bedside Glucose 172 mg/dL (74-106)
[2022-12-19] MEDS: Senna/Docusate Sodium 1 Tablet 2 TABLET PO (22:40)
[2022-12-19] MEDS: hydrALAZINE 50 MG Tablet PO (22:40)
[2022-12-19] MEDS: amLODIPine 10 MG Tablet PO (22:40)
[2022-12-19] MEDS: 0.9% Saline Lock 10 ML Syringe IV (22:42)
[2022-12-20] VITALS (10 sets, daily range): BP systolic 128–145; BP diastolic 60–74; PULSE 68–88; RESP 18–20; TEMP 36.7–37.2; O2SAT 89–97
[2022-12-20 00:15] LABS: Bedside Glucose 233 mg/dL (74-106)
[2022-12-20] MEDS: hydrALAZINE 50 MG Tablet PO ×3 (04:47→20:18)
[2022-12-20] MEDS: Levothyroxine 88 MCG Tablet PO (04:48)
[2022-12-20 05:11] LABS: Bedside Glucose 209 mg/dL (74-106)
[2022-12-20 06:19] LABS: Absolute Neutrophil Count 3.1 X10^3/uL (2.0-7.7); Basophil# 0.04 X10^3/uL; Basophil% 0.8 % (0-1); Eosinophil# 0.32 X10^3/uL; Eosinophils% 6.2 % (0-5); Hematocrit 34.2 % (37-47); Hemoglobin 11.3 g/dL (12.0-15.0); Lymphocyte % 17.4 % (19-41); Mean Corpuscular Hgb 28.6 pg (27.0-32.0); Mean Corpuscular Volume 86.6 fL (81-99); Mean Platelet Vol. 10.7 fl (6.2-12.0); Monocyte% 15.5 % (0-10); NRBC Flagged by Analyzer 0 % (0-5); Neutrophil # 3.07 X10^3/uL (2.7-7.7); Neutrophil % 59.5 % (47-70); Platelet Count 196 K/mm3 (150-450); RBC Distribution Width CV 13.4 % (11.6-14.6); RBC Distribution Width SD 42.1 fl (35.1-43.9); Red Blood Count 3.95 M/mm3 (4.2-5.4); White Blood Count 5.2 K/mm3 (4.4-11.0)
[2022-12-20 06:45] LABS: Anion Gap 9 (5-15); BUN 16 mg/dL (7-18); BUN/Creat Ratio 29.1 RATIO (10-20); Calcium,Total 9.2 mg/dL (8.5-10.1); Chloride 104 mmol/L (98-107); Creatinine, Serum 0.55 mg/dL (0.55-1.02); EST Glomerular Filtration Rate 112 mL/min (>60); Est Glom Filt Rate - Afr Amer 136 mL/min (>60); Estimated Creatinine Clearance 33.12 ml/min; Glucose 174 mg/dL (74-106); Potassium 3.9 mmol/L (3.5-5.1); Sodium Level 137 mmol/L (136-145)
[2022-12-20] MEDS: Folic Acid 1 MG Tablet PO (09:04)
[2022-12-20] MEDS: Ferrous Sulfate 325 MG Tablet PO (09:04)
[2022-12-20] MEDS: Aspirin 81 MG TAB.CHEW PO (09:04)
[2022-12-20] MEDS: Losartan Potassium 100 MG Tablet PO (09:05)
[2022-12-20] MEDS: Mirabegron 25 MG TAB.ER.24H PO (09:05)
[2022-12-20] MEDS: Insulin Glargine-YFGN 100 UNIT/ML Pen 6 UNIT SC (09:05)
--- NOTE | 2022-12-20 10:00 | PN.HOSP_ITS ---
Subjective Subjective Doing well, no issues overnight. She is maintaining her oxygen sats at rest on room air we will need to obtain an ambulatory pulse ox Objective Data Objective Data Vital Signs: Vital Signs Temp Pulse Resp BP Pulse Ox O2 Del Method O2 Flow Rate 98.4 F 74 18 140/63 H 94 Nasal Cannula 2 12/20/22 04:42 12/20/22 04:47 12/20/22 04:42 12/20/22 04:47 12/20/22 04:42 12/20/22 04:42 12/20/22 04:42 Oxygen Flow Rate (L/min) 2 Oxygen Delivery Method Nasal Cannula Weight: 113 lb Body Mass Index (BMI) 20.6 Intake & Output: Intake and Output for Last 24 Hours 12/19/22 12/20/22 12/21/22 03:59 03:59 03:59 Intake Total 300 / 300 Balance 300 / 300 Lab / Micro Data Result Diagrams: 12/20/22 04:44 12/20/22 04:44 Labs: Laboratory Results - last 24 hr 12/19/22 11:25: WBC 6.1, RBC 3.90 L, Hgb 11.0 L, Hct 33.5 L, MCV 85.9, MCH 28.2, MCHC 32.8, RDW Std Deviation 42.1, RDW Coeff of Obed 13.4, Plt Count 181, MPV 10.4, Immature Gran % (Auto) 0.700, Neut % (Auto) 71.8 H, Lymph % (Auto) 10.8 L, [place] % (Auto) 14.6 H, Eos % (Auto) 1.6, Baso % (Auto) 0.5, Absolute Neuts (auto) 4.4, Absolute Lymphs (auto) 0.66 L, Nucleated RBC % 0 12/19/22 11:25: Sodium 133 L, Potassium 4.1, Chloride 102, Carbon Dioxide 26.0, Anion Gap 5, BUN 22 H, Creatinine 0.74, Estim Creat Clear Calc 33.12, Est GFR (MDRD) Af Amer 96, Est GFR (MDRD) Non-Af 79, BUN/Creatinine Ratio 29.7 H, Glucose 294 H, Calcium 9.2, Troponin I High Sens 40 12/19/22 14:15: Troponin I High Sens 38 12/19/22 17:21: POC Glucose 172 H 12/19/22 22:36: POC Glucose 233 H 12/20/22 04:36: POC Glucose 209 H 12/20/22 04:44: WBC 5.2, RBC 3.95 L, Hgb 11.3 L, Hct 34.2 L, MCV 86.6, MCH 28.6, MCHC 33.0, RDW Std Deviation 42.1, RDW Coeff of Obed 13.4, Plt Count 196, MPV 10.7, Immature Gran % (Auto) 0.600, Neut % (Auto) 59.5, Lymph % (Auto) 17.4 L, [place] % (Auto) 15.5 H, Eos % (Auto) 6.2 H, Baso % (Auto) 0.8, Absolute Neuts (auto) 3.1, Absolute Lymphs (auto) 0.90, Nucleated RBC % 0 12/20/22 04:44: Sodium 137, Potassium 3.9, Chloride 104, Carbon Dioxide 24.0, Anion Gap 9, BUN 16, Creatinine 0.55, Estim Creat Clear Calc 33.12, Est GFR (MDRD) Af Amer 136, Est GFR (MDRD) Non-Af 112, BUN/Creatinine Ratio 29.1 H, Glucose 174 H, Calcium 9.2 Micro: Microbiology 12/19/22 Unknown Interface Orders Respiratory Panel (PCR) - Final 12/19/22 13:30 Nasal Secretion SARS-CoV-2 & FLU Antigen (Rapid) - Final Radiography Diagnostic Testing: Radiology Impression Chest CTA 12/19/22 11:37 IMPRESSION: 1. Mild to moderate groundglass edema and developing consolidation is present in the bilateral lower lobes and associated with small pleural effusions, right greater than left. There is groundglass pattern is typically associated with Covid-19 pneumonia. Fibrotic scarring and subsegmental atelectasis is seen in the lingula of the left upper lobe. Both lungs are hyperinflated. 2. Negative CTA chest examination, without a demonstrated pulmonary embolism or arterial dissection. 3. Mild cardiomegaly Electronically Signed: Vikash Baker MD at 12:53 EST Reading Location ID and State: [address] [place] [address] , Service support , Chest X-Ray 12/19/22 12:24 IMPRESSION: 1. Mild right lower lobe and moderate left lower lobe pneumonic consolidation is present and associated with small bilateral pleural effusions. Electronically Signed: Vikash Baker MD at 12:39 EST Reading Location ID and State: [facility] / [place] , Service support , Physical Exam Narrative General: Alert, Oriented x3, Cooperative, No apparent distress HEENT: Atraumatic, PERRLA, EOMI, Normocephalic Oral: Moist Mucosa Neck: Supple, No JVD Lungs: Diminished at bases, Normal air movement, No rhonchi, No wheeze, No rales, scattered crackles Cardiovascular: Regular rate, Regular Rhythm, Normal S1, Normal S2, No murmurs Abdomen: Soft, Non Tender, Non-Distended, No Hepato-splenomegaly Extremities: No edema, Capillary Refill Less than 3 Seconds Skin: No rashes, No breakdown Musculoskeletal: No Tenderness to Palpation of Joints or Extremities Neurological: Cranial nerves II-XII grossly intact, Motor Exam 5/5 strength throughout, Sensory exam intact to light touch and pain Psych/Mental Status: Normal Affect, Appropriate Assessment & Plan Assessment/Plan (1) Bilateral pneumonia: (2) Hypoxia: PLAN: Plan 1. Hypoxia secondary to bilateral pneumonia ? We will place her on Levaquin 750 mg every 48 hours secondary to her creatinine clearance ? Respiratory panel, flu and COVID were negative ? We will obtain an ambulatory pulse ox ? Given her history of diastolic heart failure if she remains hypoxic in the morning can trial her on some Lasix 2. Chronic diastolic CHF/bilateral carotid stenosis/HTN/HLD ? Blood pressures are stable, can resume her home blood pressure medications ? Continue with Crestor ? Continue with aspirin ? Echo in March with an EF of 70% and diastolic dysfunction, RVSP of 37 mmHg 3. DM2 ? Stable, continue with her home long-acting insulin, hold Januvia ? Accu-Cheks AC at bedtime ? Sliding scale insulin, will make adjustments as necessary 4. Hypothyroidism ? Stable ? Continue with Synthroid DVT: SCDs Charges/Coding Visit Charges Inpatient E&M: 59104 Subs Hosp L2
[2022-12-20] MEDS: levoFLOXacin IV 750 MG/150 ML BAG 100 MG IV (12:05)
[2022-12-20] MEDS: amLODIPine 10 MG Tablet PO (20:18)
[2022-12-20] MEDS: Atorvastatin Calcium 10 MG Tablet PO (20:18)
[2022-12-20] MEDS: 0.9% Saline Lock 10 ML Syringe IV (20:19)
[2022-12-21] VITALS (7 sets, daily range): BP systolic 125–133; BP diastolic 49–67; PULSE 67–70; RESP 18–20; TEMP 36.5–36.7; O2SAT 87–98
[2022-12-21] MEDS: hydrALAZINE 50 MG Tablet PO ×2 (05:28→15:15)
[2022-12-21] MEDS: Levothyroxine 88 MCG Tablet PO (05:28)
--- NOTE | 2022-12-21 08:23 | PCM.DC.SUM ---
Providers Date of Admission: 12/19/22 Date of Discharge: 12/21/22 Primary Care Physician: Dr. Karla Bhagat MD Reason For Visit: bilateral pneumonia Diagnosis Discharge Diagnosis (1) Bilateral pneumonia: Status: Acute Code(s): J18.9 - Pneumonia, unspecified organism (2) Hypoxia: Status: Acute Code(s): R09.02 - Hypoxemia Medications at Discharge Home Medications Synthroid 88 mcg tablet (levothyroxine) 88 mcg PO DAILY thyroid #90 tabs 07/16/20 rosuvastatin 5 mg tablet 5 mg PO DAILY cholesterol 10/21/20 cholecalciferol (vitamin D3) 125 mcg (5,000 unit) capsule 125 mcg PO DAILY supplement 10/30/20 sitagliptin phosphate 100 mg tablet (Januvia) 100 mg PO DAILY Blood sugar 09/21/21 losartan 100 mg tablet 100 mg PO DAILY BP 09/23/21 hydralazine 50 mg tablet 50 mg PO TID BP 11/04/21 amlodipine 10 mg tablet 10 mg PO QHS BP 30 days #30 tabs 02/09/22 acetaminophen 500 mg tablet 1,000 mg PO Q6H PRN Pain 04/15/22 folic acid 1 mg tablet 1 mg PO DAILY Supplement 04/15/22 insulin glargine 100 unit/mL (3 mL) subcutaneous pen (Lantus Solostar U-100 Insulin) 6 unit subcut BREAKFAST Diabetes 04/15/22 insulin lispro 100 unit/mL subcutaneous pen (Humalog KwikPen (U-100) Insulin) 3 - 4 sliding scale dose subcut TID DM 04/15/22 mirabegron 25 mg tablet,extended release 24 hr (Myrbetriq) 25 mg PO DAILY Check with primary doctor 04/15/22 sennosides 8.6 mg-docusate sodium 50 mg tablet (Stool Softener-Stimulant Laxative) 2 tab PO BID 30 days #120 tabs 04/29/22 aspirin 81 mg chewable tablet 81 mg PO DAILY Heart 05/29/22 ferrous sulfate 325 mg (65 mg iron) tablet (iron) 325 mg PO DAILY Supplement 05/29/22 tramadol 50 mg tablet 50 mg PO DAILY PRN pain 05/29/22 levofloxacin 500 mg tablet 500 mg PO DAILY #7 tabs 12/21/22 Hospital Course Summary of Care Provided Minutes Spent on Discharge: 32 Hospital Course: Patient is an 82-year-old lady with multiple comorbidities admitted with shortness of breath diagnosed with pneumonia. Admitted to regular nursing floor for subsequent management . Acute hypoxia ? Secondary to bilateral pneumonia patient treated with Levaquin viral respiratory panel came back negative. Patient was assessed for home oxygen which she did qualify 2. Chronic congestive heart failure with preserved ejection fraction ? Discontinue patient home meds 3. Bilateral carotid artery stenosis ? Patient is on antiplatelet therapy with aspirin did continue 4. Essential hypertension ? Did continue patient home meds 5. Diabetes mellitus type 2 ? Discontinue patient home regimen including long-acting insulin lispro scheduled Premeal as well as Accu-Cheks before meals and at bedtime with sliding scale coverage 6. Hypothyroidism ? Patient is on levothyroxine did continue 7. Dyslipidemia ? Patient is on rosuvastatin substituted with atorvastatin during her hospital stay Physical Exam Narrative GENERAL: cooperative HEENT: Atraumatic; normocephalic EYES; Anicteric, Normal Conjunctiva NECK; supple, normal thyroid, RESPIRATORY: Diminished to auscultation CARDIOVASCULAR: Regular S1 S2, GI: soft, normoactive bowel sounds, : No Renal angle tenderness; EXTREMITIES: No edema, no clubbing, MUSCULOSKELETAL: no muscle wasting NEURO: Awake; no lateralizing signs. SKIN: No Rash PSYCH; Flat affect Weight / BMI Weight Weight: 51.256 kg Body Mass Index (BMI) 20.6 ABG / Lab / Microbiology Data Result Diagrams: 12/20/22 04:44 12/20/22 04:44 Microbiology: Microbiology 12/19/22 Unknown Interface Orders Respiratory Panel (PCR) - Final 12/19/22 13:30 Nasal Secretion SARS-CoV-2 & FLU Antigen (Rapid) - Final D/C Instructions Discharge Diet: No restrictions Discharge Activity: Return to Normal Activity Call your doctor if you observe: Fever of 101 or Higher, Shortness of breath, Fainting spells and Chest pain Meaningful Use Info Meaningful Use Diagnoses (Choose all that apply): None applicable Discharge Plan Admission Admit Date/Time: 12/19/22 14:58 Attending Provider: Titi Lucero Primary Care Provider: Karla Bhagat Consulting Providers: Anthony Darby Discharge Orders/Prescriptions Prescriptions: New levofloxacin 500 mg tablet 500 mg PO DAILY Qty: 7 0RF Continued levothyroxine [Synthroid] 88 mcg tablet 88 mcg PO DAILY Qty: 90 3RF Rx Instructions: Patient can only take brand name Synthroid rosuvastatin 5 mg tablet 5 mg PO DAILY cholecalciferol (vitamin D3) 125 mcg (5,000 unit) capsule 125 mcg PO DAILY hydralazine 50 mg tablet 50 mg PO TID tramadol 50 mg tablet 50 mg PO DAILY PRN (Reason: pain) Januvia 100 mg tablet 100 mg PO DAILY Rx Instructions: takes in evening losartan 100 mg tablet 100 mg PO DAILY acetaminophen 500 mg Tablet 1,000 mg PO Q6H PRN (Reason: Pain) folic acid 1 mg Tablet 1 mg PO DAILY insulin lispro [Humalog KwikPen Insulin] 100 unit/mL insulin pen 3 - 4 sliding scale dose SUBCUT TID Label Comments: inject 6 units subcutaneously with meals insulin glargine [Lantus Solostar U-100 Insulin] 100 unit/mL (3 mL) insulin pen 6 unit SUBCUT BREAKFAST Label Comments: inject 8 units UNDER THE SKIN IN THE MORNING Myrbetriq 25 mg Tablet Extended Release 24 Hr 25 mg PO DAILY ferrous sulfate [iron] 325 mg (65 mg iron) tablet 325 mg PO DAILY sennosides-docusate sodium [Stool Softener-Stimulant Laxat] 8.6-50 mg Tablet 2 tab PO BID 30 Days Qty: 120 0RF aspirin 81 mg tablet,chewable 81 mg PO DAILY amlodipine 10 mg tablet 10 mg PO QHS 30 Days Qty: 30 0RF Referrals / Follow Up: Karla Bhagat MD [Primary Care Provider] - In 1 Week Disposition Disposition (needs filled in before D/C Order can be placed): Home, Self Care Charges/Coding Visit Charges Inpatient E&M: 47765 Disch Hosp >30min
[2022-12-21] MEDS: Folic Acid 1 MG Tablet PO (08:28)
[2022-12-21] MEDS: Aspirin 81 MG TAB.CHEW PO (08:29)
[2022-12-21] MEDS: Ferrous Sulfate 325 MG Tablet PO (08:29)
[2022-12-21] MEDS: Insulin Glargine-YFGN 100 UNIT/ML Pen 6 UNIT SC (08:30)
--- NOTE | 2022-12-21 09:40 | CASEMGMT ---
RN MANOLO CANAL BOAT OPERATOR CM to room to meet with patient for initial transition planning/care coordination assessment. AMBER FRENCH introduced self and role at [facility]. Pt voices understanding and consents to assessment at this time. Pt sitting up in chair in room in no distress at this time. Pt is A/O at this time and answers all questions appropriately. Care providers, pharmacy, and demographics verified/updated at this time. PCP: Dr Bhagat Specialists: Dr Tena-cardiology. [facility]erred [facility]acy: [facility] Insurance: [employer] [facility] Prescription Benefit: Yes Living Will/HPOA: Has both LW and HCPOA, who is her son, Ramin, and dtr, Angely. Pt states she thinks Ramin is primary POA and Angely is 1st alternative, but she is not sure. LNOK: SonRamin. Dtr, Angely Living Arrangements: Lives alone in [address] [place] w/2 steps to enter. Independent w/ADL's. Hires private-duty aide, approx 4 x's/week, who assists w/IADL's. Pt states she is scheduled to have surgery for breast cancer on Jan 07. Her sister is staying w/her currently, and plans to stay until after that surgery is over. Transportation: son and dtr. Pt states she was driving until her , about a month ago. Her sister and aide do her grocery shopping. DME: has the following DME: functioning [employer] glucometer system w/supplies, pulse ox, rollator, walker, cane, shower chair, grab bars, and medical alert system. Pt does not have home O2. Pt qualifies for 2 l/m O2 w/exertion. Pt provided w/list of local DME co's and she chooses [employer]. HHC/SNF: Hx [facility] TCU and HHC. She thinks it was [facility] HHC. Pt declines wanting HHC @ d/c, stating, I know what I need to do as far as exercises and she declines wanting HHC for SN. She was made aware if she changes her mind once returning home to f/u with her PCP. Pt wishes to return home and states has no concerns with going home at time of discharge. CM to follow for any further discharge planning/needs. Pt voices no further concerns/needs at this time. Advised pt to ask for CM if any further questions/concerns/needs arise. Voices understanding. PLAN: Home w/Home O2 from [employer], family support, and discharge plans in place. Aishwarya DEN RN CM
--- NOTE | 2022-12-21 10:49 | PHA.DC.MC ---
Pharmacy Service has performed discharge medication reconciliation and counseling for this patient. The patient was counseled on the following discharge medications and changes in medications for homegoing were reviewed. 1. LEVOFLOXACIN: Discussed with patient to separate iron supplementation form abx d/t interaction. The Reason for Use, instructions for use, and potential side effects were reviewed for all new medications. The patient's questions regarding all of their medications were answered. The patient was able to verbally demonstrate an understanding of their discharge medications. NOTE: Also contacted provider regarding Levofloxacin dosing. Dose of Levofloxacin was changed to 750mg PO Q48h x3 days. MD to send in new rx after discussion. Home Medications Synthroid 88 mcg tablet (levothyroxine) 88 mcg PO DAILY thyroid #90 tabs 07/16/20 rosuvastatin 5 mg tablet 5 mg PO DAILY cholesterol 10/21/20 cholecalciferol (vitamin D3) 125 mcg (5,000 unit) capsule 125 mcg PO DAILY supplement 10/30/20 sitagliptin phosphate 100 mg tablet (Januvia) 100 mg PO DAILY Blood sugar 09/21/21 losartan 100 mg tablet 100 mg PO DAILY BP 09/23/21 hydralazine 50 mg tablet 50 mg PO TID BP 11/04/21 amlodipine 10 mg tablet 10 mg PO QHS BP 30 days #30 tabs 02/09/22 acetaminophen 500 mg tablet 1,000 mg PO Q6H PRN Pain 04/15/22 folic acid 1 mg tablet 1 mg PO DAILY Supplement 04/15/22 insulin glargine 100 unit/mL (3 mL) subcutaneous pen (Lantus Solostar U-100 Insulin) 6 unit subcut BREAKFAST Diabetes 04/15/22 insulin lispro 100 unit/mL subcutaneous pen (Humalog KwikPen (U-100) Insulin) 3 - 4 sliding scale dose subcut TID DM 04/15/22 mirabegron 25 mg tablet,extended release 24 hr (Myrbetriq) 25 mg PO DAILY Check with primary doctor 04/15/22 sennosides 8.6 mg-docusate sodium 50 mg tablet (Stool Softener-Stimulant Laxative) 2 tab PO BID 30 days #120 tabs 04/29/22 aspirin 81 mg chewable tablet 81 mg PO DAILY Heart 05/29/22 ferrous sulfate 325 mg (65 mg iron) tablet (iron) 325 mg PO DAILY Supplement 05/29/22 tramadol 50 mg tablet 50 mg PO DAILY PRN pain 05/29/22 levofloxacin 500 mg tablet 500 mg PO DAILY #7 tabs 12/21/22 The patient's discharge medication list was reviewed for discrepancies and discrepancies were resolved.
[2022-12-21] MEDS: Senna/Docusate Sodium 1 Tablet 2 TABLET PO (10:50)
[2022-12-21] MEDS: Losartan Potassium 100 MG Tablet PO (10:51)
== END 2022-12-21 15:51 | disposition home or self-care (01) | DRG 194 ==
LOC: ED 12:01 → MS3 15:32
PROVIDERS: Admitting Provider Family Medicine; Emergency Provider Student in an Organized Health Care Education/Training Program; PCP Internal Medicine; Visit Provider Internal Medicine
DX: J18.9 Pneumonia, unspecified organism (principal); I50.32 Chronic diastolic (congestive) heart failure; I11.0 Hypertensive heart disease with heart failure; E11.65 Type 2 diabetes mellitus with hyperglycemia; Z79.4 Long term (current) use of insulin; I65.23 Occlusion and stenosis of bilateral carotid arteries; E78.00 Pure hypercholesterolemia, unspecified; E89.0 Postprocedural hypothyroidism; R09.02 Hypoxemia; Z79.02 Long term (current) use of antithrombotics/antiplatelets; Z79.82 Long term (current) use of aspirin; Z79.899 Other long term (current) drug therapy; Z87.891 Personal history of nicotine dependence
CPT/HCPCS: 36415; 71045; 71275; 80048; 82962; 84484; 85025; 87428; 87633; 93005; 99285; Q9967; A4216

== ENCOUNTER 2023-05-10 14:00 | Outpatient (RCR) | payer MEDICARE, SELFPAY ==
--- NOTE | 2023-03-23 14:01 | HP.PTEVAL_ITS ---
Patient's Visit Information ELLEN ESTRADA is a 82 year old F referred to Physical Therapy by Dr. Karla Bhagat MD with a diagnosis of LOW BACK PAIN/DDD. Date of Evaluation: 03/23/23 Physical Therapist: Divina Leblanc PT, Cert MDT - Visit Plan Frequency: 2-3x /Week Duration: 4-6 Months Plan: *OSTEOPOROSIS*. *H/O R THR MARCH 2022 WITH 2 SUBSEQUENT DISLOCATIONS*. POSTURE CORRECTION/STRENGTHENING, INSTRUCTION IN APPROPRIATE BODY MECHANICS AND ACTIVITY MODIFICATIONS. DLS STARTING WITH A NEUTRAL SPINE PROGRESSING ROM TOLERATED. SANDI LE ROM, STRETCHING AND STRENGTHENING. HEP INSTRUCTION. - Subjective Present symptoms: CHEIF COMPLAINT IS LEFT LOW BACK PAIN. SHE REPORTS SHE ALMOST NEVER GETS RIGHT LOW BACK PAIN AND EVEN THOUGH IT IS HER R HIP THAT SHE HAD REPLACED SHE REALLY ISN'T HAVING R HIP PAIN. PATIENT ALSO DENIES SANDI LE PAIN, NUMBNESS AND TINGLING. Present since: L LOW BACK PAIN FLARED UP AFTER LAST R HIP DISLOCATION APPROX MAY 2022. PATIENT REPORTS SHE FELL WHEN IT DISLOCATED. 2 DISLOCATIONS SINCE R THR MARCH 2022. PT AFTER DISLOCATIONS AND NO RECENT DISLOCATIONS. Pain Scale: WORST 9/10, LEAST 4/10. Currently: 5/10. Is it getting better, worse or staying the same: STAYING THE SAME. Commenced as a result of: FALLING. Worse: THE DAY PROGRESSES, TRYING TO BRUSH TEETH AT NIGHT. STANDING. ESPECIALLY STANDING WITHOUT UE SUPPORT FROM WALKER. RARELY ABLE TO COOK NOW DUE TO L LOW BACK PAIN FLARING UP WHEN TRYING TO STAND WITHOUT ANYTHING TO HANG ON TO. Better: IN THE MORNING. Disturbed sleep: NO. 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 NO BACK SURGERY. NO L HIP SX. PAIN MGMT - DR. CARLSON - INJECTIONS (LAST ONE WAS BEFORE R THR). CHRONIC LBP. *CONSULT WITH DR. MCGEE PENDING NEXT WEEK*. Gait: USING FWW OUTSIDE OF HOME AND ROLLATOR IN HOME. Bowel or Bladder Dysfunction: URINARY INCONTINENCE. Unexplained weight loss: NO. Imaging: PATIENT REPORTS RECENT LUMBAR X-RAYS AT [facility] BUT CAN'T REMEMBER EXACTLY WHEN OR WHY. PMH/Recent major surgery: BREAST CANCER DX'D OCT 2022 TREATED WITH LUMPECTOMY. HURT L SHLD IN FALL. SANDI SHLD PAIN/DYSFUNCTION (NO SHLD SX'S). OSTEOPOROSIS. PNEUMONIA NOV 2022. SCOLIOSIS. ARTHRITIS. HEART DZ. SOCIAL: LIVES ALONE. PRIVATE CAREGIVER 3 TIMES A WK FOR 4-6 HOURS A DAY. OCT 2022. - Objective Sitting/Standing Posture: POOR. VERY FORWARD FLEXED AND SCOLIOTIC. Active Correction of posture: ONLY ABLE TO CORRECT A LITTLE BIT AND ATTEMPS CAUSE INCREASED LBP. Other Observations: THIS PATIENT AMBULATES INDEP'LY INTO PT WITH FWW. INDEP TRANSFERS SIT TO STAND WITHOUT UE ASSIST. PATIENT REPORTS SHE DROVE HERSELF HERE ALONE. ALSO STATES SHE GETS HER WALKER IN AND OUT OF THE CAR BY HERSELF. Sensory deficit: SANDI LE LIGHT TOUCH SENSATION GROSSLY INTACT AND SYMMETRICAL. RIGHT FOOT AND ANKLE EDEMA > LEFT. ROM deficit: TIGHT SANDI HIPS ALL PLANES. Motor deficit: R LE: HIP 3+/5, KNEE 4-/5, ANKLE 4/5. L LE: HIP 4-/5, KNEE 4/5, ANKLE 4/5. Lumbar mvmt loss: MAJOR LUMBAR MVMT LOSS ALL PLANES EXCEPT FLEXION. flex - MIN. ext - TAMI. R SG - TAMI. L SG - TAMI. PATIENT IS ABLE TO BEND OVER IN SITTING AND TIE HER SHOE. SHE DENIES HAVING ANY PHYSICIAN RESTICTIONS FOR HER BACK OR HIP. Core strength: POOR - Balance/Special Test Scores Oswestry Low Back Score: 26 TUG Test Time Seconds: 24.97 30 Second Chair Rise Test Seconds: 5 - Goals Goal 1:: DECREASE C/O LOW BACK PAIN (MOSTLY LEFT) Goal Time Frame: 4-6 Weeks Goal 2:: IMPROVE PERSONAL CARE, LIFTING, WALKING, SITTING, STANDING, SOCIAL LIFE, TRAVEL AND HOMEMAKING FUNCTION. Goal Time Frame: 4-6 Weeks Goal 3:: INSTRUCT IN PROPHYLAXIS Goal Time Frame: 4-6 Weeks - Anticipated Interventions Patient/Client Instruction: Educate patient on: Condition, Plan of Care, Risk Factors For the Purpose of:: To improve self management Therapeutic Exercise to Include: Strength training, Body mechanics, Postural training, Flexibilty training, Gait and locomotor training, Neuromotor development, Dynamic Lumbar Stabilization For the Purpose of:: To decrease pain, To increase ROM, To improve muscle performance and motor function, To increase tolerance to activity/condition/position, To improve ability of physical actions for home/community/work/leisure, To improve gait and locomotor functions Thank you for the opportunity to evaluate your patient. For Medicare and Medicare HMO plans, please review the plan of care and approve it. It will need to be FAXED BACK to us at [phone] for Medicare purposes. For Medicare only, by signing this I certify the plan of care. Please let me know if there are questions or concerns regarding this plan of care. Physician Signature: Date:
--- NOTE | 2023-05-10 18:53 | HP.PTDCSUM_ITS ---
It has been my pleasure to treat ELLEN ESTRADA referred by Dr. Karla Bhagat MD, with the diagnosis of LOW BACK PAIN/DDD for a total of 8 visit(s). Discharge Date: Please see the following information for a summary of their discharge status. Subjective: PATIENT REPORTS SHE DID ALMOST ALL OF HER HEP YESTERDAY AND SHE HAS SOME SORENESS. STATES SHE WORKED HARD AT THEM. STATES SHE FEELS SHE CAN CONTINUE ON HER OWN NOW AND REALIZES SHE HAS TO KEEP MOVING. PATIENT STATES SHE THINKS THE WEATHER BOTHERS HER PAIN TOO (RAINY TODAY). Back pain Pain Intensity (Out of 10): 8 Right knee Pain Intensity (Out of 10): 5 % Improvement: 20 Objective/Function: PATIENT WAS SEEN TODAY FOR RE-ASSESSMENT OF PROGRESS TOWARD THE SET PT GOALS AND THE NEED FOR FURTHER PHYSICAL THERAPY VS READINESS FOR DISCHARGE. PATIENT IS INDEP WITH A HEP AND APPRORIATE FOR DISCHARGE TO [facility] AT THIS TIME. PATIENT IS AGREEABLE. UPON EXAM TODAY PATIENT HAS MADE PROGRESS IN TERMS OF GAIT AND LE STRENGTH - (SEE TUG TIME AND STS TEST SCORES BELOW) BUT STILL HAS C/O SIGNIFICANT PAIN. Goal 1:: DECREASE C/O LOW BACK PAIN (MOSTLY LEFT) Goal Progress: Not Progressing Goal 2:: IMPROVE PERSONAL CARE, LIFTING, WALKING, SITTING, STANDING, SOCIAL LIFE, TRAVEL AND HOMEMAKING FUNCTION. Goal Progress: Progressing Goal 3:: INSTRUCT IN PROPHYLAXIS Goal Progress: Progressing Plan: D/C TO HEP If there are questions or concerns regarding this patient's physical therapy, please feel free to call me at [phone]. Thank you for the referral of this patient. Sincerely, Divina Leblanc, PT, Cert MDT Balance/Gait/Functional tests - Balance/Special Test Scores Oswestry Low Back Score: 25 TUG Test Time Seconds: 19.86 Tug Test: <20 sec.=mostly independent 30 Second Chair Rise Test Seconds: 8
== END 2023-05-10 19:00 | disposition home or self-care (01) ==
LOC: PT 14:00
PROVIDERS: PCP Internal Medicine; Referring Provider Internal Medicine; Visit Provider Internal Medicine
DX: M51.36 Other intervertebral disc degeneration, lumbar region (principal)
CPT/HCPCS: 97110; 97162; 97164

== ENCOUNTER 2023-07-22 10:57 | Inpatient (IN) | payer MEDICARE, SELFPAY ==
[2023-07-22 10:59] VITALS: BP 170/67; PULSE 74; RESP 18; TEMP 36.5; O2SAT 99; BMI 22.3
--- NOTE | 2023-07-22 11:34 | CT_ITS ---
INDICATION: Neck trauma EXAMINATION: CT CERVICAL SPINE - CT Spine Cervical W/O Contrast Injection TECHNIQUE: Helically acquired images were obtained of the cervical spine. 2D reformatted images were reviewed. A radiation dose optimization technique was used for this scan. IV Contrast dosage and agent: None. RADIATION DOSAGE (If Supplied By Facility): CTDIvol = ( 11.84 ) mGy, DLP = ( 247.65 ) mGycm COMPARISON: Prior study dated: CTA of the neck dated November 07, 2020 FINDINGS: VERTEBRAE: No fracture or traumatic subluxation. There is multilevel endplate spondylosis and facet hypertrophy. No discrete lytic or blastic abnormality. There is a grade 1 anterior spondylolisthesis of C3 on C4 by 1.4 mm. Normal craniocervical junction and cervicothoracic junction. DISCS and SPINAL CANAL: Disc heights are preserved. No critical stenosis. NECK SOFT TISSUES: No prevertebral soft tissue swelling. There is no cervical adenopathy. There are vascular calcifications. LUNG APICES: Clear. CT/Spine Cervical without Contras IMPRESSION: Multilevel degenerative changes. Atherosclerosis. Electronically Signed: Dviina Willis MD at 13:29 EDT ,
--- NOTE | 2023-07-22 11:34 | RAD_ITS ---
INDICATION: Injury/Pain -- -- PAIN S/P FALL EXAMINATION/TECHNIQUE: X-RAY - XR Pelvis 1 or 2 Views COMPARISON: Prior study dated: July 15, 2022 FINDINGS: PELVIC BONES: There are degenerative changes of the visualized lower lumbar spine. Note that overlapping bowel shadows may however obscure fine detail. Sacroiliac joints are unremarkable. No widening of the pubic symphysis. HIPS: There is a right hip arthroplasty that is grossly anatomic and stable in alignment. There are stable radiolucencies within the proximal left femur which may be secondary to demineralization. SOFT TISSUES: There are rounded calcified foci projecting over the pelvis which may reflect calcified fibroids. RAD/Pelvis 1 or 2 Views IMPRESSION: No evidence of displaced pelvic or hip fracture. Electronically Signed: Divina Willis MD at 13:54 EDT ,
--- NOTE | 2023-07-22 11:34 | RAD_ITS ---
INDICATION: Injury/Pain -- -- PAIN S/P FALL EXAMINATION/TECHNIQUE: X-RAY - XR Spine Thoracic 3 Views COMPARISON: Prior studies dated: March 01, 2019 and May 21, 2020 FINDINGS: VERTEBRAE: There is a dextroscoliosis of the thoracolumbar spine. There is multilevel endplate spondylosis. No spondylolisthesis. DISCS: There is multilevel degenerative disc disease. INCLUDED CHEST/ABDOMEN: There are peripheral calcifications of the thoracic and visualized abdominal aorta. RAD/Thoracic Spine 3 Views IMPRESSION: Dextroscoliosis of the thoracolumbar spine. Degenerative changes. Atherosclerosis. Electronically Signed: Divina Willis MD at 14:09 EDT ,
--- NOTE | 2023-07-22 11:34 | RAD_ITS ---
INDICATION: trauma, pain -- -- PAIN S/P FALL EXAMINATION/TECHNIQUE: X-RAY - XR Ribs 4 Views W/ PA Chest Bilateral COMPARISON: Prior studies dated: Chest radiograph and CT dated December 19, 2022 FINDINGS: LINES/DEVICES: None. LUNGS: No consolidation, edema or effusion. No pneumothorax. MEDIASTINUM AND CARDIOVASCULAR STRUCTURES: Cardiac silhouette not enlarged. Central airways and mediastinal contour are unremarkable. RIBS AND OSSEOUS STRUCTURES: There is a dextroscoliosis of the thoracolumbar spine. There is a left 10th rib deformity consistent with a healed fracture. No evidence of displaced rib fractures. RAD/Ribs Ronak Min 4V w/PA Chest IMPRESSION: No acute osseous injury. Stable dextroscoliosis. Electronically Signed: Divina Willis MD at 13:51 EDT ,
--- NOTE | 2023-07-22 11:34 | CT_ITS ---
INDICATION: head trauma EXAMINATION: CT BRAIN - CT Head or Brain W/O Contrast Injection TECHNIQUE: Multiple axial images were obtained of the head without intravenous contrast. A radiation dose optimization technique was used for this scan. IV Contrast dosage and agent: None. RADIATION DOSAGE (If Supplied By Facility): CTDIvol = ( 44.99 ) mGy, DLP = ( 796.11 ) mGycm COMPARISON: Prior study dated: June 06, 2021 FINDINGS: BRAIN PARENCHYMA: No intra- or extra-axial hemorrhage. There are patchy areas of low attenuation within the white matter of the cerebral hemispheres, a nonspecific finding most commonly reflecting small vessel ischemia. No evidence of acute infarct. No intracranial mass or mass effect. There is preservation of the gilmore/white matter interface. Posterior fossa structures are unremarkable. CSF SPACES: Appropriate for age. No hydrocephalus. Basal cisterns are patent. CALVARIUM, SKULL BASE, PARANASAL SINUSES AND MASTOID AIR CELLS: Clear. No discrete lytic or blastic abnormalities. ORBITS: Both globes, extraocular muscles, optic nerves and retrobulbar fat appear unremarkable. ASPECTS Score for Acute Strokes: 10 CT/Brain/Head without Contrast IMPRESSION: Small vessel ischemia. No acute intracranial process. Electronically Signed: Divina Willis MD at 13:05 EDT ,
--- NOTE | 2023-07-22 11:34 | RAD_ITS ---
INDICATION: Injury/Pain -- -- PAIN S/P FALL EXAMINATION/TECHNIQUE: X-RAY - XR Spine Lumbar 2 or 3 Views COMPARISON: No relevant prior comparison study available May 21, 2020 FINDINGS: VERTEBRAE: There is a dextroscoliosis of the thoracolumbar spine. There is a stable grade 1 anterior spondylolisthesis of L4 on L5. No fracture. There is multilevel facet hypertrophy. DISCS: There is multilevel degenerative disc disease. INCLUDED ABDOMEN: There are vascular calcifications. RAD/Lumbar Spine 2 or 3 Views IMPRESSION: Dextroscoliosis of the thoracolumbar spine. Multilevel degenerative changes. Atherosclerosis. Electronically Signed: Divina Willis MD at 14:02 EDT ,
--- NOTE | 2023-07-22 11:36 | ED.VIS.FALL ---
HPI HPI - Fall History of Present Illness Chief Complaint: Fall Informant: patient Narrative Narrative: Patient is an 82-year-old female with history of long-term Eliquis use for approximately 12 fibrillation, debility, scoliosis and osteoarthritis as well as chronic pain which she is on tramadol for presenting after mechanical fall. Patient states she was taking a shower this morning and the water was too hot. She was trying to adjust it and let go of the grab bar. She lost her balance and fell. Patient fell on her right side half out of the shower and half in. Her right side hit the edge of the tub. She did hit her head on the floor. She denies any loss of consciousness and cried immediately. A friend came to her immediately and then called 911. EMS brought her here. Patient states while she landed on her right side most of her pain is actually on the left. She states she has pain all the way down her spine from her shoulders to her butt. She is complained of mild hip pain. Did take a regular scheduled tramadol this morning. No other complaints or concerns at this time. [facility] Medical History Anxiety Avascular necrosis of bone of hip Back pain Bilateral carotid bruits Bladder disease Breast cancer Cancer Cardiology follow-up encounter Carotid artery stenosis Carotid stenosis, bilateral Chronic constipation Chronic pain Constipation Coronary artery disease 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 Depression Diabetes mellitus, type II Dietary restriction Dizziness Easy bruising Essential hypertension Essential hypertension Heartburn High cholesterol History of CHF (congestive heart failure) History of echocardiogram History of edema History of irregular heartbeat History of pain when walking History of renal disease History of steroid therapy History of stress test Hyponatremia with extracellular fluid depletion Hypothyroidism Injury of head and neck Irregular heart beat Leg cramps Loss of hearing Osteoporosis Pain Paroxysmal atrial fibrillation Pneumonia Shortness of breath on exertion Syncope Thyroid disease Transaminitis Uses wheelchair Valvular heart disease Vitamin D deficiency Wears glasses Wears partial dentures Home Medications Synthroid 88 mcg tablet (levothyroxine) 88 mcg PO DAILY thyroid #90 tabs 07/16/20 [Rx Last Taken 12/19/22] rosuvastatin 5 mg tablet 5 mg PO DAILY cholesterol 10/21/20 [History Last Taken 12/19/22] folic acid 1 mg tablet 1 mg PO DAILY Supplement 04/15/22 [History Last Taken 12/18/22] sennosides 8.6 mg-docusate sodium 50 mg tablet (Stool Softener-Stimulant Laxative) 2 tab PO BID 30 days #120 tabs 04/29/22 [Rx Last Taken 12/18/22] amlodipine 5 mg tablet 5 mg PO QHS 02/02/23 [History Last Taken Unknown] biotin 2,500 mcg capsule 2,500 mcg PO DAILY 02/02/23 [History Last Taken Unknown] cholecalciferol (vitamin D3) 25 mcg (1,000 unit) tablet 25 mcg PO DAILY 02/02/23 [History Last Taken Unknown] citalopram 20 mg tablet 10 mg PO DAILY 02/02/23 [History Last Taken Unknown] insulin glargine 100 unit/mL (3 mL) subcutaneous pen (Lantus Solostar U-100 Insulin) 8 unit subcut QPM Diabetes 02/02/23 [History Last Taken Unknown] insulin lispro 100 unit/mL subcutaneous pen (Humalog KwikPen (U-100) Insulin) 2 unit subcut BID DM 02/02/23 [History Last Taken Unknown] tramadol 50 mg tablet 50 mg PO Q8H PRN pain 02/02/23 [History Last Taken Unknown] losartan 100 mg tablet 100 mg PO DAILY BP #90 tabs 02/10/23 [Rx Last Taken Unknown] apixaban 2.5 mg tablet 2.5 mg PO BID #60 tabs 02/18/23 [Rx Last Taken Unknown] linagliptin 5 mg tablet 5 mg PO DAILY 05/20/23 [History Last Taken Unknown] tamoxifen 20 mg tablet 20 mg PO DAILY 05/20/23 [History Last Taken Unknown] Allergy/AdvReac Type Severity Reaction Status Date / Time metformin Allergy Severe Rash Verified 07/22/23 11:03 neomycin [Neomycin] Allergy Severe Unknown Verified 07/22/23 11:03 Tetracyclines Allergy Severe Anaphylaxis Verified 07/22/23 11:03 Sulfa (Sulfonamide Allergy Constipatio Verified 07/22/23 11:03 Antibiotics) n metoprolol AdvReac Intermediate Bradycardia Verified 07/22/23 11:03 flecainide AdvReac bradycardia Verified 07/22/23 11:03 in combo with Metoprolol Family History Mother Thyroid disorder Father Alzheimer disease Surgical History History of cardiac catheterization History of foot surgery History of left heart catheterization (12/28/14) History of lumpectomy of left breast (~12/2022) History of right hip replacement History of thyroidectomy History of tonsillectomy and adenoidectomy Hx of colonoscopy S/P breast biopsy, left (~10/2022) S/P total right hip arthroplasty Social History household members: none Smoking Status: Former smoker how long ago did patient quit smokin years ago alcohol intake: current alcohol intake frequency: a few times a month Alcohol type: wine substance use type: does not use caffeine: Yes Type: coffee Number of servings: 2 ROS ROS ED Constitutional Constitutional ED: Denies chills or fever(s) Eyes Eyes: Denies change in vision Cardiovascular Cardiovascular: Denies chest pain Gastrointestinal Gastrointestinal: Denies nausea or vomiting Musculoskeletal Musculoskeletal: Reports arthralgias, back pain and neck pain Integumentary Denies rash Neurologic Neurologic: Denies headache(s), paresthesias or weakness Hematologic/Lymphatic Hematologic/Lymphatic: Reports easy bleeding and easy bruising EXAM Physical Exam Const Vital Signs: 07/22/23 10:59 07/22/23 11:19 07/22/23 13:00 Temperature 97.7 F L Temperature Source Temporal Pulse Rate 74 72 Respiratory Rate 18 18 Respiratory Effort Normal Non-Labored Respiratory Depth Normal Respiratory Pattern Normal Blood Pressure 170/67 H 171/69 H Blood Pressure Mean 101 103 Pulse Ox 99 96 Oxygen Delivery Method Room Air Room Air Room Air Positive well nourished and well developed General Appearance ED: well developed and NAD HEENT Reports normocephalic and TM's normal bilaterally HEENT Narrative: No significant cephalhematoma. Patient points to right occiput/parietal region is where it hurts. Neck Neck Narrative: No midline tenderness. Patient does have left paraspinal tenderness. Decreased range of motion. Patient she does have chronic left-sided neck pain as well but it is worse than normal. General: tenderness Chest Wall inspection of chest normal Chest Narrative: No chest wall crepitus or deformity appreciated. Patient has tenderness to palpation of the left inferior/posterior chest Resp normal respiratory effort and clear to auscultation bilaterally Cardio regular rate, regular rhythm and no murmurs GI non-tender GI Narrative: Mildly protuberant abdomen but soft and nontender Back/Spine Back/Spine Narrative: Tenderness palpation along the left paraspinal region of the thoracic and lumbar spine Cervical Spine: Negative for cervical spine tenderness Thoracic Spine / Upper Back: ROM limited; Negative for thoracic spinal tenderness Lumbar Spine / Lower Back: Negative for lumbar spinal tenderness Extremity Extremity Narrative: No obvious deformity. No pain with direct palpation of the upper extremities. Pelvis is stable. Patient does have pain in her hip region but does not have reproducible pain with direct palpation bilaterally or with range of motion of the hips bilaterally. No deformity of the lower extremities appreciated. Psych mental status grossly normal and thought process normal Skin Lesions: no lesions Rashes: no rashes Trauma: Negative for abrasion MDM MDM MDM Narrative Medical decision making narrative: Patient evaluated for pain associated with mechanical fall. Patient has chronic pain, debility and significant osteoarthritis/scoliosis at baseline. She is on tramadol 4 times a day for the symptoms. She is also anticoagulated on Eliquis. She is home alone. She does not have any obvious deformity and imaging including CT of the brain and cervical spine as well as x-rays of the thoracic and lumbar spine, rib series and pelvis do not show any acute process. Patient requires 2 doses of IM morphine as she does not want an IV and while in the emergency room. Discussed trying to give her oral pain medication to ambulate with discharge home however her son is now at the bedside who states is no one to stay with her tonight and she cannot go home. Patient is amenable to admission. Will obtain screening admission labs and contact hospitalist to discuss admission for debility and generalized pain. While in the ER patient does require significant assistance with any type of movement and has significant pain with any attempted movement. Case discussed with my physician, Dr. Holland. Patient's general medical screening is normal. Lab Data Attestation: I reviewed the patient's lab results. Labs: Laboratory Results - last 24 hr 07/22/23 07/22/23 15:40 16:10 WBC 7.7 RBC 5.38 Hgb 15.0 Hct 46.3 MCV 86.1 MCH 27.9 MCHC 32.4 RDW Std Deviation 42.2 RDW Coeff of Obed 13.4 Plt Count 204 MPV 10.4 Immature Gran % (Auto) 0.500 Neut % (Auto) 74.1 H Lymph % (Auto) 13.8 L Bea[place] % (Auto) 9.6 Eos % (Auto) 1.0 Baso % (Auto) 1.0 Absolute Neuts (auto) 5.7 Absolute Lymphs (auto) 1.07 Nucleated RBC % 0 Sodium 136 Potassium 3.5 Chloride 103 Carbon Dioxide 26.0 Anion Gap 7 BUN 22 H Creatinine 0.48 L Estim Creat Clear Calc 30.08 Est GFR (MDRD) Af Amer 159 Est GFR (MDRD) Non-Af 131 BUN/Creatinine Ratio 45.9 H Glucose 129 H Calcium 9.9 Urine Color Yellow Urine Clarity Clear Urine pH 8.0 Ur Specific [place] 1.010 Urine Protein Negative Urine Glucose (UA) Normal Urine Ketones Negative Urine Occult Blood Negative Urine Nitrite Negative Urine Bilirubin Negative Urine Urobilinogen Normal Ur Leukocyte Esterase Negative Urine RBC 0 SEEN Urine WBC 0 SEEN Ur Squamous Epith Cells 0 SEEN Urine Bacteria 0 SEEN Urine Mucus 0 SEEN Radiography Diagnostic Testing: Clinical Impression(s) from Imaging Studies Brain CT 07/22/23 11:34 IMPRESSION: Small vessel ischemia. No acute intracranial process. Electronically Signed: Divina Willis MD at 13:05 EDT , Cervical Spine CT 07/22/23 11:34 IMPRESSION: Multilevel degenerative changes. Atherosclerosis. Electronically Signed: Divina Willis MD at 13:29 EDT Reading Location ID and State: [facility] / [place] Tel , Service support , Lumbar Spine X-Ray 07/22/23 11:34 IMPRESSION: Dextroscoliosis of the thoracolumbar spine. Multilevel degenerative changes. Atherosclerosis. Electronically Signed: Divina Willis MD at 14:02 EDT , Pelvis X-Ray 07/22/23 11:34 IMPRESSION: No evidence of displaced pelvic or hip fracture. Electronically Signed: Divina Willis MD at 13:54 EDT , Ribs w/Chest X-Ray 07/22/23 11:34 IMPRESSION: No acute osseous injury. Stable dextroscoliosis. Electronically Signed: Divina Willis MD at 13:51 EDT , Thoracic Spine X-Ray 07/22/23 11:34 IMPRESSION: Dextroscoliosis of the thoracolumbar spine. Degenerative changes. Atherosclerosis. Electronically Signed: Divina Willis MD at 14:09 EDT , Discharge Plan Triage Chief Complaint: Fall ED Provider: Aurelia Squires Dx/Rx/DC Orders Clinical Impression: Acute left-sided back pain, Debility, Fall Prescriptions: No Action levothyroxine [Synthroid] 88 mcg tablet 88 mcg PO DAILY Qty: 90 3RF Rx Instructions: Patient can only take brand name Synthroid rosuvastatin 5 mg tablet 5 mg PO DAILY tramadol 50 mg tablet 50 mg PO Q8H PRN (Reason: pain) amlodipine 5 mg tablet 5 mg PO QHS cholecalciferol (vitamin D3) 25 mcg (1,000 unit) tablet 25 mcg PO DAILY biotin 2,500 mcg capsule 2,500 mcg PO DAILY citalopram 20 mg tablet 10 mg PO DAILY linagliptin 5 mg tablet 5 mg PO DAILY tamoxifen 20 mg tablet 20 mg PO DAILY folic acid 1 mg Tablet 1 mg PO DAILY insulin glargine [Lantus Solostar U-100 Insulin] 100 unit/mL (3 mL) insulin pen 8 unit SUBCUT QPM Patient Comments: inject 8 units UNDER THE SKIN IN THE MORNING insulin lispro [Humalog KwikPen Insulin] 100 unit/mL insulin pen 2 unit SUBCUT BID Patient Comments: inject 2 units twice daily before meals sennosides-docusate sodium [Stool Softener-Stimulant Laxat] 8.6-50 mg Tablet 2 tab PO BID 30 Days Qty: 120 0RF losartan 100 mg tablet 100 mg PO DAILY Qty: 90 3RF apixaban 2.5 mg tablet 2.5 mg PO BID Qty: 60 12RF Primary Care Provider: Karla Bhagat Referrals: Karla Bhagat MD [Primary Care Provider] - Disposition Disposition: Acute Care Hospital [facility]
[2023-07-22] MEDS: Morphine 4 MG/ML Syringe IM ×2 (11:58→13:58)
[2023-07-22 13:00] VITALS: BP 171/69; PULSE 72; RESP 18; O2SAT 96
[2023-07-22] MEDS: HYDROcodone Bitartrate/Apap 5/325 Tablet PO (15:50)
[2023-07-22 16:10] LABS: Bacteria 0 SEEN /hpf (None Seen); Mucous, Urine 0 SEEN /hpf (<or=2+); Red Blood Cells-Urine 0 SEEN /hpf (0-5); Squamous Epithelial Cells - UA 0 SEEN /hpf (5-10); White Blood Cells 0 SEEN /hpf (0-5)
[2023-07-22 16:16] LABS: Absolute Lymphocyte Count 1.07 X10^3/uL (0.83-4.51); Absolute Neutrophil Count 5.7 X10^3/uL (2.0-7.7); Basophil# 0.08 X10^3/uL; Eosinophil# 0.08 X10^3/uL; Hematocrit 46.3 % (37-47); Lymphocyte # 1.07 X10^3/ul (0.83-4.51); Lymphocyte % 13.8 % (19-41); Mean Corp Hgb Conc 32.4 g/dL (32-36); Mean Corpuscular Hgb 27.9 pg (27.0-32.0); Mean Corpuscular Volume 86.1 fL (81-99); Mean Platelet Vol. 10.4 fl (6.2-12.0); Monocyte# 0.74 X10^3/uL; Monocyte% 9.6 % (0-10); NRBC Flagged by Analyzer 0 % (0-5); Neutrophil # 5.72 X10^3/uL (2.7-7.7); Neutrophil % 74.1 % (47-70); Platelet Count 204 K/mm3 (150-450); RBC Distribution Width CV 13.4 % (11.6-14.6); RBC Distribution Width SD 42.2 fl (35.1-43.9); Red Blood Count 5.38 M/mm3 (4.2-5.4); White Blood Count 7.7 K/mm3 (4.4-11.0)
[2023-07-22 16:19] LABS: Color, Urine Yellow (Yellow); Glucose, Dipstick Normal (Normal); Ketone-Dipstick Negative (Negative); Leukocyte Esterase-Dipstick Negative /ul (Negative); Nitrite-Dipstick Negative (Negative); Occult Blood-Urine Negative /ul (Negative); Protein-Dipstick Negative (Negative); Urine Bilirubin Dipstick Negative (Negative); Urine Clarity Clear (Clear); Urine Urobilinogen Normal (Normal)
[2023-07-22 16:28] LABS: Anion Gap 7 (5-15); BUN 22 mg/dL (7-18); BUN/Creat Ratio 45.9 RATIO (10-20); Calcium,Total 9.9 mg/dL (8.5-10.1); Chloride 103 mmol/L (98-107); Creatinine, Serum 0.48 mg/dL (0.55-1.02); EST Glomerular Filtration Rate 131 mL/min (>60); Est Glom Filt Rate - Afr Amer 159 mL/min (>60); Estimated Creatinine Clearance 30.08 ml/min; Glucose 129 mg/dL (74-106); Potassium 3.5 mmol/L (3.5-5.1); Sodium Level 136 mmol/L (136-145)
--- NOTE | 2023-07-22 17:10 | PCM.HP.STD ---
HPI - General General Date of Admission: 07/22/23 Date of Service: 07/22/23 Chief Complaint: Fall, debility HPI Narrative ELLEN ESTRADA is a 82 F with history of A-fib on Eliquis, hypertension, type 2 diabetes, hypothyroidism, depression and hyperlipidemia who presented to [facility] ED on 07/22/2023 after a mechanical fall. Patient seen at bedside, no family present. Per ED staff, patient notably was brought in by her family due to concern that she lives alone and would not be able to take care of herself at home. Patient sitting up in bed, appears mildly uncomfortable due to pain. Patient reports generalized pain and discomfort at this time. States sitting/laying in bed causes her back to hurt, and she would like to get up and move around if able. She denies any fevers or chills. She denies any chest pain or shortness of breath. No other acute concerns at this time. Labs in the ED were notable for hemoglobin of 15.0 (baseline around 11-12), normal white blood cell count of 7, normal electrolytes, normal kidney function. UA was benign. CT head and C-spine was negative. X-rays of the T-spine, L-spine, pelvis and ribs were negative for any acute pathology. [facility] Medical History Anxiety Avascular necrosis of bone of hip Back pain Bilateral carotid bruits Bladder disease Breast cancer Cancer Cardiology follow-up encounter Carotid artery stenosis Carotid stenosis, bilateral Chronic constipation Chronic pain Constipation Coronary artery disease 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 Depression Diabetes mellitus, type II Dietary restriction Dizziness Easy bruising Essential hypertension Essential hypertension Heartburn High cholesterol History of CHF (congestive heart failure) History of echocardiogram History of edema History of irregular heartbeat History of pain when walking History of renal disease History of steroid therapy History of stress test Hyponatremia with extracellular fluid depletion Hypothyroidism Injury of head and neck Irregular heart beat Leg cramps Loss of hearing Osteoporosis Pain Paroxysmal atrial fibrillation Pneumonia Shortness of breath on exertion Syncope Thyroid disease Transaminitis Uses wheelchair Valvular heart disease Vitamin D deficiency Wears glasses Wears partial dentures Home Medications Synthroid 88 mcg tablet (levothyroxine) 88 mcg PO DAILY THYROID #90 tabs 07/16/20 [Rx Last Taken 12/19/22] rosuvastatin 5 mg tablet 5 mg PO DAILY CHOLSTEROL 10/21/20 [History Last Taken 12/19/22] folic acid 1 mg tablet 1 mg PO DAILY Supplement 04/15/22 [History Last Taken 12/18/22] sennosides 8.6 mg-docusate sodium 50 mg tablet (Stool Softener-Stimulant Laxative) 2 tab PO BID CONSTIPATION 30 days #120 tabs 04/29/22 [Rx Last Taken 12/18/22] amlodipine 5 mg tablet 5 mg PO QHS BLOOD PRESSURE 02/02/23 [History Last Taken Unknown] cholecalciferol (vitamin D3) 25 mcg (1,000 unit) tablet 25 mcg PO DAILY SUPPLEMENT 02/02/23 [History Last Taken Unknown] citalopram 20 mg tablet 10 mg PO DAILY DEPRESSION 02/02/23 [History Last Taken Unknown] insulin glargine 100 unit/mL (3 mL) subcutaneous pen (Lantus Solostar U-100 Insulin) 4 unit subcut DAILY Diabetes 02/02/23 [History Last Taken Unknown] insulin lispro 100 unit/mL subcutaneous pen (Humalog KwikPen (U-100) Insulin) 2 unit subcut TID DM 02/02/23 [History Last Taken Unknown] tramadol 50 mg tablet 50 mg PO Q8H PRN pain 02/02/23 [History Last Taken Unknown] losartan 100 mg tablet 100 mg PO DAILY BLOOD PRESSURE #90 tabs 02/10/23 [Rx Last Taken Unknown] apixaban 2.5 mg tablet 2.5 mg PO BID BLOOD THINNER #60 tabs 02/18/23 [Rx Last Taken Unknown] linagliptin 5 mg tablet 5 mg PO DAILY DIABETES 05/20/23 [History Last Taken Unknown] nystatin 100,000 unit/gram topical powder (Nyamyc) 1 applic topical BID rash 07/22/23 [History Last Taken Unknown] primidone 50 mg tablet (Mysoline) 50 mg PO QHS tremors 07/22/23 [History Last Taken Unknown] Allergy/AdvReac Type Severity Reaction Status Date / Time metformin Allergy Severe Rash Verified 07/22/23 11:03 neomycin [Neomycin] Allergy Severe Unknown Verified 07/22/23 11:03 Tetracyclines Allergy Severe Anaphylaxis Verified 07/22/23 11:03 Sulfa (Sulfonamide Allergy Constipatio Verified 07/22/23 11:03 Antibiotics) n metoprolol AdvReac Intermediate Bradycardia Verified 07/22/23 11:03 flecainide AdvReac bradycardia Verified 07/22/23 11:03 in combo with Metoprolol Family History Mother Thyroid disorder Father Alzheimer disease Surgical History History of cardiac catheterization History of foot surgery History of left heart catheterization (12/28/14) History of lumpectomy of left breast (~12/2022) History of right hip replacement History of thyroidectomy History of tonsillectomy and adenoidectomy Hx of colonoscopy S/P breast biopsy, left (~10/2022) S/P total right hip arthroplasty Social History household members: none Smoking Status: Former smoker how long ago did patient quit smokin years ago alcohol intake: current alcohol intake frequency: a few times a month Alcohol type: wine substance use type: does not use caffeine: Yes Type: coffee Number of servings: 2 ROS Constitutional Constitutional: Denies chills, fatigue or fever(s) Cardiovascular Cardiovascular: Denies chest pain, dyspnea on exertion or lightheadedness Respiratory/Chest Respiratory/Chest: Denies cough Gastrointestinal Gastrointestinal: Denies abdominal pain Genitourinary Genitourinary: Denies dysuria Musculoskeletal Musculoskeletal: Reports arthralgias and joint stiffness Vital Signs Vital Signs Vital Signs: 07/22/23 10:59 07/22/23 11:19 07/22/23 13:00 Temperature 97.7 F L Temperature Source Temporal Pulse Rate 74 72 Respiratory Rate 18 18 Respiratory Effort Normal Non-Labored Respiratory Depth Normal Respiratory Pattern Normal Blood Pressure 170/67 H 171/69 H Blood Pressure Mean 101 103 Pulse Ox 99 96 Oxygen Delivery Method Room Air Room Air Room Air Weight Weight: 51.8 kg Body Mass Index (BMI) 22.3 Physical Exam Const alert Constitutional Narrative: Elderly, frail-appearing female. Sitting in bed, appears mildly uncomfortable due to generalized pain. Otherwise conversing normally. General Appearance: cooperative HEENT normocephalic, head/scalp atraumatic, hearing grossly normal bilaterally, nasal mucous membranes and turbinates normal and moist oral mucous membranes Eyes PERRL, EOMs intact bilaterally and conjunctivae normal Neck full ROM, no lymphadenopathy and supple Lymph Lymphatic: no lymphadenopathy noted Chest inspection of chest normal Resp normal respiratory effort, normal air movement, no use of accessory muscles and clear to auscultation bilaterally Cardio regular rate, regular rhythm, no murmurs and peripheral pulses 2+ throughout GI normal to inspection, nondistended, normoactive bowel sounds, soft to palpation, non-tender and non-distended Back/Spine normal ROM Extremity normal to inspection, full ROM and no pedal edema Skin no rashes or lesions noted Psych mental status grossly normal Results Lab / Micro Data 07/22/23 16:10 07/22/23 16:10 Labs: Laboratory Results - last 24 hr 07/22/23 15:40: Urine Color Yellow, Urine Clarity Clear, Urine pH 8.0, Ur Specific [place] 1.010, Urine Protein Negative, Urine Glucose (UA) Normal, Urine Ketones Negative, Urine Occult Blood Negative, Urine Nitrite Negative, Urine Bilirubin Negative, Urine Urobilinogen Normal, Ur Leukocyte Esterase Negative, Urine RBC 0 SEEN, Urine WBC 0 SEEN, Ur Squamous Epith Cells 0 SEEN, Urine Bacteria 0 SEEN, Urine Mucus 0 SEEN 07/22/23 16:10: WBC 7.7, RBC 5.38, Hgb 15.0, Hct 46.3, MCV 86.1, MCH 27.9, MCHC 32.4, RDW Std Deviation 42.2, RDW Coeff of Obed 13.4, Plt Count 204, MPV 10.4, Immature Gran % (Auto) 0.500, Neut % (Auto) 74.1 H, Lymph % (Auto) 13.8 L, [place] % (Auto) 9.6, Eos % (Auto) 1.0, Baso % (Auto) 1.0, Absolute Neuts (auto) 5.7, Absolute Lymphs (auto) 1.07, Nucleated RBC % 0, Sodium 136, Potassium 3.5, Chloride 103, Carbon Dioxide 26.0, Anion Gap 7, BUN 22 H, Creatinine 0.48 L, Estim Creat Clear Calc 30.08, Est GFR (MDRD) Af Amer 159, Est GFR (MDRD) Non-Af 131, BUN/Creatinine Ratio 45.9 H, Glucose 129 H, Calcium 9.[address] 07/22/23 11:34 IMPRESSION: Small vessel ischemia. No acute intracranial process. Electronically Signed: Divina Willis MD at 13:05 EDT , Cervical Spine CT 07/22/23 11:34 IMPRESSION: Multilevel degenerative changes. Atherosclerosis. Electronically Signed: Divina Willis MD at 13:29 EDT , Lumbar Spine X-Ray 07/22/23 11:34 IMPRESSION: Dextroscoliosis of the thoracolumbar spine. Multilevel degenerative changes. Atherosclerosis. Electronically Signed: Divina Willis MD at 14:02 EDT , Pelvis X-Ray 07/22/23 11:34 IMPRESSION: No evidence of displaced pelvic or hip fracture. Electronically Signed: Divina Willis MD at 13:54 EDT , Ribs w/Chest X-Ray 07/22/23 11:34 IMPRESSION: No acute osseous injury. Stable dextroscoliosis. Electronically Signed: Divina Willis MD at 13:51 EDT , Thoracic Spine X-Ray 07/22/23 11:34 IMPRESSION: Dextroscoliosis of the thoracolumbar spine. Degenerative changes. Atherosclerosis. Electronically Signed: Divina Willis MD at 14:09 EDT , Assessment & Plan Assessment/Plan (1) Debility: PLAN: Plan Patient is a 82 F with history of A-fib on Eliquis, hypertension, type 2 diabetes, hypothyroidism, depression and hyperlipidemia who presented to [facility] ED on 07/22/2023 after a mechanical fall. 1. General debility - Patient lives home alone, family becoming more concerned about her safety at home. Suffered a mechanical fall earlier today as noted below. PT/OT/case management consulted. 2. Mechanical fall ? All imaging on admission negative as noted above. On tramadol 50 mg every 8 hours as needed at home for pain control. Have concern this may not be sufficient for patient, as she was reporting moderate musculoskeletal pain on my review. Start scheduled Tylenol, with low-dose oxycodone and IV Dilaudid as needed. 3. Hypovolemia ? Patient appeared mildly hypovolemic on exam, and labs were consistent with some degree of concentration. Notably did not have an ZAHIDA. Started on maintenance IV fluids with lactated Ringer's 75 mL/HR. Monitor fluid status. 4. Hypertension ? Continue home amlodipine, holding home losartan for now, restart as needed. 5. Type 2 diabetes ? Home regimen of Lantus 8 units nightly, lispro 2 units with meals plus sliding scale, linagliptin. We will start Lantus 5 units nightly plus sliding scale insulin with meals, adjust as needed. 6. Depression ? Continue home citalopram. 7. Hypothyroidism ?Continue home Synthroid. 8. Hyperlipidemia ?Continue home statin. 9. Atrial fibrillation ? Continue home Eliquis 5 mg p.o. twice daily DVT prophylaxis: Eliquis CODE STATUS: DNR CCA, DO NOT INTUBATE Expected disposition: TBD Total clinical time spent by myself addressing the patient's medical issues, reviewing all the data, and collaborating with patient's care team: 55 minutes. Charges/Coding Visit Charges Inpatient E&M: 06463 Init Hosp L2
[2023-07-22 17:32] VITALS: BP 164/78; PULSE 71; RESP 16; O2SAT 96
[2023-07-22 20:45] VITALS: BP 160/75; PULSE 70; RESP 20; TEMP 37; O2SAT 98
[2023-07-22 21:45] VITALS: BP 147/65; PULSE 75; RESP 18; TEMP 36.6; O2SAT 98
[2023-07-22 22:02] VITALS: BMI 19.9
[2023-07-22] MEDS: oxyCODONE 5 MG Tablet PO (22:31)
[2023-07-22] MEDS: Lactated Ringers 1,000 ML 75 ML IV (22:31)
[2023-07-22] MEDS: Acetaminophen 325 MG Tablet 650 MG PO (22:32)
[2023-07-22] MEDS: Atorvastatin Calcium 10 MG Tablet PO (22:33)
[2023-07-22] MEDS: Senna/Docusate Sodium 1 Tablet 2 TABLET PO (22:33)
[2023-07-22] MEDS: APIXABAN 2.5 MG TABLET (WCH) PO (22:33)
[2023-07-22] MEDS: amLODIPine 5 MG Tablet PO (22:33)
[2023-07-22 22:40] LABS: Bedside Glucose 271 mg/dL (74-106)
[2023-07-23] MEDS: Insulin Lispro 100 UNIT/ML INSULN.PEN SC ×3 (03:20→16:47)
[2023-07-23 03:25] VITALS: BP 138/55; PULSE 64; RESP 18; TEMP 36.8; O2SAT 99
[2023-07-23 04:26] LABS: Bedside Glucose 284 mg/dL (74-106)
[2023-07-23] MEDS: Acetaminophen 325 MG Tablet 650 MG PO ×3 (06:24→18:16)
--- NOTE | 2023-07-23 07:10 | PN.HOSP_ITS ---
Reason for Visit Reason for Visit: Diagnoses Other malaise (07/22/23) Subjective Subjective Patient with no acute events overnight per self and per nursing report aside from complaints of constipation and requesting something for this. Discussed several options and at this point patient is amenable to Dulcolax that she says nothing else will work for her. Patient notes that she does take chronic tramadol scheduled for discomfort but is in no discomfort or pain at this time. She does feel improved since initial presentation. Following physical and Occupational Therapy assessment recommendation is for home health and she does have a caregiver at home therefore plan likely discharge 07/24/2023 to which patient and family are amenable. Patient denies fevers, chills, nausea, emesis, abdominal pain, chest pain or dyspnea. Objective Data Objective Data Vital Signs: Vital Signs Temp Pulse Resp BP Pulse Ox O2 Del Method 98.2 F 64 18 138/55 H 99 Room Air 07/23/23 03:25 07/23/23 03:25 07/23/23 03:25 07/23/23 03:25 07/23/23 03:25 07/23/23 03:25 Oxygen Delivery Method Room Air Weight: 102 lb 1.184 oz Body Mass Index (BMI) 19.9 Intake & Output: Intake and Output for Last 24 Hours 07/21/23 07/22/23 07/23/23 23:59 23:59 23:59 Intake Total 490 / 490 Output Total 100 / 100 Balance 390 / 390 Lab / Micro Data 07/22/23 16:10 07/22/23 16:10 Labs: Laboratory Results - last 24 hr 07/22/23 15:40: Urine Color Yellow, Urine Clarity Clear, Urine pH 8.0, Ur Specific [place] 1.010, Urine Protein Negative, Urine Glucose (UA) Normal, Urine Ketones Negative, Urine Occult Blood Negative, Urine Nitrite Negative, Urine Bilirubin Negative, Urine Urobilinogen Normal, Ur Leukocyte Esterase Negative, Urine RBC 0 SEEN, Urine WBC 0 SEEN, Ur Squamous Epith Cells 0 SEEN, Urine B acteria 0 SEEN, Urine Mucus 0 SEEN 07/22/23 16:10: WBC 7.7, RBC 5.38, Hgb 15.0, Hct 46.3, MCV 86.1, MCH 27.9, MCHC 32.4, RDW Std Deviation 42.2, RDW Coeff of Obed 13.4, Plt Count 204, MPV 10.4, Immature Gran % (Auto) 0.500, Neut % (Auto) 74.1 H, Lymph % (Auto) 13.8 L, [place] % (Auto) 9.6, Eos % (Auto) 1.0, Baso % (Auto) 1.0, Absolute Neuts (auto) 5.7, Absolute Lymphs (auto) 1.07, Nucleated RBC % 0, Sodium 136, Potassium 3.5, Chlor delfino 103, Carbon Dioxide 26.0, Anion Gap 7, BUN 22 H, Creatinine 0.48 L, Estim Creat Clear Calc 30.08, Est GFR (MDRD) Af Amer 159, Est GFR (MDRD) Non-Af 131, BUN/Creatinine Ratio 45.9 H, Glucose 129 H, Calcium 9.9 07/22/23 21:59: POC Glucose 271 H 07/23/23 03:16: POC Glucose 284 H Radiography Diagnostic Testing: Radiology Impression Brain CT 07/22/23 11:34 IMPRESSION: Small vessel ischemia. No acute intracranial process. Electronically Signed: Divina Willis MD at 13:05 EDT , Cervical Spine CT 07/22/23 11:34 IMPRESSION: Multilevel degenerative changes. Atherosclerosis. Electronically Signed: Divina Willis MD at 13:29 EDT Reading Location ID and State: [facility] / [place] Tel , Service support , Lumbar Spine X-Ray 07/22/23 11:34 IMPRESSION: Dextroscoliosis of the thoracolumbar spine. Multilevel degenerative changes. Atherosclerosis. Electronically Signed: Divina Willis MD at 14:02 EDT , Pelvis X-Ray 07/22/23 11:34 IMPRESSION: No evidence of displaced pelvic or hip fracture. Electronically Signed: Divina Willis MD at 13:54 EDT , Ribs w/Chest X-Ray 07/22/23 11:34 IMPRESSION: No acute osseous injury. Stable dextroscoliosis. Electronically Signed: Divina Willis MD at 13:51 EDT , Thoracic Spine X-Ray 07/22/23 11:34 IMPRESSION: Dextroscoliosis of the thoracolumbar spine. Degenerative changes. Atherosclerosis. Electronically Signed: Divina Willis MD at 14:09 EDT , Physical Exam Narrative Physical Examination: General: Awake, alert, oriented x 3 and cooperative, seated upright in MS bed, fatigued but notes feeling improved since initial presentation. Skin: Normal color, normal turgor, no icterus, no cyanosis except occasional staged ecchymoses. HEENT: AT/NC, EOMI, PERRLA, MMM. Lungs: C mild diminished, greater is, proper effort, no rales, ronchi or wheezing. Heart: Regular rate and rhythm; no gallop, rub audible. Abdomen: Soft, NTTP, abdomen is bulged but not distended or tense and she states this is normal in appearance, mildly hyperactive BS. Extremities: No cyanosis, clubbing, or edema. Neurological: Patient awake, alert, oriented as noted, cognitive function intact; pupils equally reactive to light and accommodation, cranial nerves II- XII grossly normal, moving all 4 extremities, no focal deficits, strength moderately to severely global decreased. Psychiatric: Affect appears mildly fatigued otherwise normal, no acute evidence of depressive or anxiety feelings. Assessment & Plan Assessment/Plan (1) Debility: PLAN: Plan The patient is an 82 y/o F w/ PMHx: Anxiety and Deprssion, HTN, HLD, Diabetes mellitus type II, Hx Breast CA s/p lumpectomy, PAF, Hypothyroidism, SIADH who presents to the [facility] ED on 07/23/23 following mechanical fall brought in by family as she lives alone and unable to care for herself and mild generalized discomfort. #1. Mechanical fall, debility with adult failure to thrive: CT of the brain with small vessel ischemia with no acute intracranial findings, CT cervical spine with multilevel degenerative changes, plain film of the lumbar spine with dextroscoliosis and multi degenerative changes, plain film of the pelvis with no evidence of any displaced pelvic or hip fractures, chest x-ray with rib with stable dextroscoliosis with no acute injury, plain film thoracic spine with dextroscoliosis otherwise no acute findings. No obvious acute injury, primarily musculoskeletal pain, admitted to [place], maintain on fall precaution, PT/OT/case management consultation for discharge planning with PT and OT assessments with recommendation at this point for home health care and patient does have of note a caregiver 4 times a week continue as needed Tylenol, scheduled tramadol per her home regimen and judicious hydration. If continues to improve would plan discharge to home 07/24/2023. #2. Suspected dehydration, hypovolemia: On initial ED evaluation concern for hypovolemia as well as labs consistent with mild dehydration, initiated on m aintenance IV fluids, clinically appears improved, will de-escalate off IV fluids at this point. #3. Acute on chronic constipation: We will continue patient home regimen and will dose with a Dulcolax oral x1 now and reassess for further chronic regimen changes. She states that of note MiraLAX does not work for her at all. #4. PAF: We will continue patient home apixaban regimen, from current list review not on any rate or rhythm agent. #5. Hypothyroidism: We will continue patient home levothyroxine regimen. #6. History of breast cancer: Unclear specific type, status postlumpectomy per history, soon in remission. #7. Hypertension: Continue home regimen including amlodipine, upon admission losartan temporarily held given BP, BP now improved, will add back. PRN hydralazine. #8. Chronic essential tremors: We will continue patient home primidone regimen. #9. Hyperlipidemia: We will continue patient on statin therapy. #10. Anxiety and depression: We will continue patient home citalopram regimen. #11. Diabetes mellitus type II: Hold oral home regimen, continue home insulin regimen, ADA diet, accu checks w/ ISS. #12. DVT prophylaxis: We will continue patient on apixaban regimen. #13. CODE status: DNR-CCA, no intubation. Charges/Coding Visit Charges Inpatient E&M: 68959 Subs Hosp L2
[2023-07-23 08:53] VITALS: BP 158/72; PULSE 73; RESP 16; TEMP 36.6; O2SAT 97
--- NOTE | 2023-07-23 09:50 | PCM.TXEXTCAR ---
Diet Diet Order/Speech Therapy: 07/22/23 21:06 Diet: Consistent Carb - Calorie Controlled Food consistency:: Regular Liquid Consistency:: Regular/Thin How many daily calories?: 2000 calorie Routine Orders/Code Status Enema Type: Fleetz Enema Frequency: Daily PRN Suppository Type: Dulcolax 10mg Suppository Frequency: Daily PRN Keep PO Greater than or Equal to (%): 92 Routine Lab Work: - (Repeat CBC, BMP in 3-5 days.) Code Status: DNRCC-A (DNR-CCA, no intubation status) Therapies Weight Bearing: Full weight bearing Physical Therapy: Eval and Treat Occupational Therapy: Eval and Treat Problem/Diagnosis (1) Debility: Status: Acute Code(s): R53.81 - Other malaise Plan The patient is an 82 y/o F w/ PMHx: Anxiety and Deprssion, HTN, HLD, Diabetes mellitus type II, Hx Breast CA s/p lumpectomy, PAF, Hypothyroidism, SIADH who presented to the [facility] ED on 07/23/23 following mechanical fall brought in by family as she lives alone and unable to care for herself and mild generalized discomfort. CT of the brain with small vessel ischemia with no acute intracranial findings, CT cervical spine with multilevel degenerative changes, plain film of the lumbar spine with dextroscoliosis and multi degenerative changes, plain film of the pelvis with no evidence of any displaced pelvic or hip fractures, chest x-ray with rib with stable dextroscoliosis with no acute injury, plain film thoracic spine with dextroscoliosis otherwise no acute findings. No obvious acute injury, primarily musculoskeletal pain, admitted to [place], maintained on fall precaution, PT/OT/case management consultation for discharge planning, continued home regimen tramadol and Tylenol regimen. On initial ED evaluation concern for hypovolemia as well as labs consistent with mild dehydration, initiated on maintenance IV fluids, labs appeared improved thus de-escalated off. #3. Acute on chronic constipation: We will continue patient home regimen and will dose with a Dulcolax oral x1 now and reassess for further chronic regimen changes. She states that of note MiraLAX does not work for her at all. #4. PAF: We will continue patient home apixaban regimen, from current list review not on any rate or rhythm agent. #5. Hypothyroidism: We will continue patient home levothyroxine regimen. #6. History of breast cancer: Unclear specific type, status postlumpectomy per history, soon in remission. #7. Hypertension: Continue home regimen including amlodipine, upon admission losartan temporarily held given BP, BP now improved, will add back. PRN hydralazine. #8. Chronic essential tremors: We will continue patient home primidone regimen. #9. Hyperlipidemia: We will continue patient on statin therapy. #10. Anxiety and depression: We will continue patient home citalopram regimen. #11. Diabetes mellitus type II: Hold oral home regimen, continue home insulin regimen, ADA diet, accu checks w/ ISS. #12. DVT prophylaxis: We will continue patient on apixaban regimen. #13. CODE status: DNR-CCA, no intubation. Allergies/Procedures Done in Hospital Allergies metformin Allergy (Severe, Verified 07/22/23 11:03) Rash neomycin [Neomycin] Allergy (Severe, Verified 07/22/23 11:03) Unknown Tetracyclines Allergy (Severe, Verified 07/22/23 11:03) Anaphylaxis Sulfa (Sulfonamide Antibiotics) Allergy (Verified 07/22/23 11:03) Constipation metoprolol Adverse Reaction (Intermediate, Verified 07/22/23 11:03) Bradycardia flecainide Adverse Reaction (Verified 07/22/23 11:03) bradycardia in combo with Metoprolol Discharge Plan Admission Admit Date/Time: 07/22/23 18:02 Primary Reason for Your Visit: Mechanical fall, debility with adult failure to thrive Attending Provider: Laura Vicente Primary Care Provider: Karla Bhagat Consulting Providers: Samuel Holland Instructions Patient Instructions: Treating Constipation, Eating a High-Fiber Diet Discharge Orders/Prescriptions Prescriptions: Continued levothyroxine [Synthroid] 88 mcg tablet 88 mcg PO DAILY Qty: 90 3RF Rx Instructions: Patient can only take brand name Synthroid rosuvastatin 5 mg tablet 5 mg PO DAILY tramadol 50 mg tablet 50 mg PO Q8H PRN (Reason: pain) amlodipine 5 mg tablet 5 mg PO QHS cholecalciferol (vitamin D3) 25 mcg (1,000 unit) tablet 25 mcg PO DAILY citalopram 20 mg tablet 10 mg PO DAILY linagliptin 5 mg tablet 5 mg PO DAILY folic acid 1 mg Tablet 1 mg PO DAILY insulin glargine [Lantus Solostar U-100 Insulin] 100 unit/mL (3 mL) insulin pen 4 unit SUBCUT DAILY Patient Comments: inject 4 units UNDER THE SKIN IN THE MORNING insulin lispro [Humalog KwikPen Insulin] 100 unit/mL insulin pen 2 unit SUBCUT TID Patient Comments: inject 2 units twice daily before meals sennosides-docusate sodium [Stool Softener-Stimulant Laxat] 8.6-50 mg Tablet 2 tab PO BID 30 Days Qty: 120 0RF primidone [Mysoline] 50 mg tablet 50 mg PO QHS nystatin [Nyamyc] 100,000 unit/gram powder 1 applic topical BID losartan 100 mg tablet 100 mg PO DAILY Qty: 90 3RF apixaban 2.5 mg tablet 2.5 mg PO BID Qty: 60 12RF Referrals / Follow Up: Karla Bhagat MD [Primary Care Provider] - (Follow-up within 3-5 days to review admission.)
--- NOTE | 2023-07-23 10:09 | CASEMGMT ---
Discharge Planning A list of SNF providers including quality and resource use data and consistent with the patient?s preferred geographic region, medical needs, and insurance network was created in [employer]. This list was provided to the SW. Adela Tanner Discharge Planning Asst.
[2023-07-23] MEDS: Bisacodyl 5 MG Tablet PO (10:16)
[2023-07-23] MEDS: traMADol 50 MG Tablet PO ×2 (10:16→18:13)
[2023-07-23] MEDS: Folic Acid 1 MG Tablet PO (10:16)
[2023-07-23] MEDS: Citalopram 10 MG Tablet PO (10:16)
[2023-07-23] MEDS: Senna/Docusate Sodium 1 Tablet 2 TABLET PO ×2 (10:17→21:14)
[2023-07-23] MEDS: APIXABAN 2.5 MG TABLET (WCH) PO ×2 (10:17→21:15)
[2023-07-23] MEDS: Lactated Ringers 1,000 ML 75 ML IV (10:23)
[2023-07-23] MEDS: Nystatin Powder 15gm Bottle TOPICAL (10:24)
[2023-07-23] MEDS: Losartan Potassium 100 MG Tablet PO (10:24)
[2023-07-23 11:52] LABS: Bedside Glucose 145 mg/dL (74-106)
--- NOTE | 2023-07-23 11:55 | CASEMGMT ---
Discharge Planning A list of home health providers including quality and resource use data and consistent with the patient?s preferred geographic region, medical needs, and insurance network was created in [employer] Guide. This list was provided to the LU[facility]GEL. Adela Tanner Discharge Planning Asst.
[2023-07-23 12:13] LABS: Bedside Glucose 378 mg/dL (74-106)
--- NOTE | 2023-07-23 12:33 | CASEMGMT ---
Addendum entered by Shira Bagley 07/23/23 13:00: Social Work SW spoke with pt's son Ramin and discussed the dischrage plan. Son agreeable. ZAINAB Brooke Original Note: Social Work SW to room to meet with patient for initial transition planning/care coordination?assessment.?SW?introduced self and role at [facility].? Pt voices understanding and consents to?assessment.? Pt sitting chair and in no distress.? Pt is A/O x4 and answers all questions appropriately.?? Care providers, pharmacy, and demographics verified/updated at this time. PCP: Ol[facility]a Specialists: Raymond Masci Preferred Pharmacy: [facility] Insurance: [facility] Prescription Benefit:? Yes Living Will/HPOA:? Health Care POA on file naming Inocencio Redman. This is pt's spouse. First alternate is Ramin Redman and pt confirms he is her medical decision maker. Pt has not completed Living Will. SW provided information on living will and pt does not want to complete at this time. An Advance Directive rack card provided and pt notified she can call to make an appointment if she decides she would like to complete living will. LNOK: Ramin and Soha Redman, son and daughter in law - Angely Redman, daughter in [place] Living Arrangements: Pt lives at home in a one story condo with 2 steps to enter. Pt has a caregiver that comes 4x week and assists with meals and can assist with showers/personal care if needed. Pt also has a cleaning lady every other week. Transportation:?Caregiver provides transportation DME: ? medical alert, rollator, kyle, shower?chair HHC/SNF: [facility] previously. Home health PT/OT previously but does not remember which company. SW reviewed progress in therapy with pt and pt is agreeable that she can return home with home health PT/OT and assistance of her caregiver. A list of home health providers including quality and resource use data and consistent with the patient?s preferred geographic region, medical needs, and insurance network were provided from the [employer]Port Guide. Pt preferred provider is [facility]. With pt permission, phone call to pt son and VM left. DC licensed occupational therapy assistant to send referral to [facility]. Plan: Home alone with Home Health PT/OT ZAINAB Brooke
--- NOTE | 2023-07-23 12:47 | CASEMGMT ---
Discharge Planning HH referral sent to [facility] via [facility]. Adela Tanner, Discharge Planning Asst.
[2023-07-23] MEDS: traMADol 50 MG Tablet 100 MG PO (14:09)
[2023-07-23 15:48] VITALS: BP 144/63; PULSE 74; RESP 16; TEMP 37.1; O2SAT 98
[2023-07-23 17:07] LABS: Bedside Glucose 286 mg/dL (74-106)
[2023-07-23] MEDS: Primidone 50 MG Tablet PO (21:14)
[2023-07-23 21:15] VITALS: BP 156/65; PULSE 78; RESP 18; TEMP 37.4; O2SAT 97
[2023-07-23] MEDS: Atorvastatin Calcium 10 MG Tablet PO (21:15)
[2023-07-23] MEDS: amLODIPine 5 MG Tablet PO (21:15)
[2023-07-23] MEDS: Insulin Glargine-YFGN 100 UNIT/ML Pen SC (21:18)
[2023-07-23 23:15] LABS: Bedside Glucose 123 mg/dL (74-106)
[2023-07-24] MEDS: Acetaminophen 325 MG Tablet 650 MG PO ×2 (00:40→06:09)
[2023-07-24] MEDS: Nystatin Powder 15gm Bottle TOPICAL ×2 (00:41→11:00)
[2023-07-24 03:00] VITALS: BP 149/57; PULSE 67; RESP 16; TEMP 36.7; O2SAT 98
--- NOTE | 2023-07-24 06:09 | DS.PCM_ITS ---
Providers Date of Admission: 07/22/23 Date of Discharge: 07/24/23 Primary Care Physician: Dr. Karla Bhagat MD Reason For Visit: FALL, DEBILITY Diagnosis Discharge Diagnosis (1) Debility: Status: Acute Code(s): R53.81 - Other malaise Plan: Discharge Diagnoses: #1. Mechanical fall, debility with adult failure to thrive #2. Suspected dehydration, hypovolemia #3. Acute on chronic constipation #4. PAF #5. Hypothyroidism #6. History of breast cancer, Unclear specific type, status postlumpectomy #7. Hypertension #8. Chronic essential tremors #9. Hyperlipidemia #10. Anxiety and depression #11. Diabetes mellitus type II #12. CODE status: DNR-CCA, no intubation. Medications at Discharge Home Medications Synthroid 88 mcg tablet (levothyroxine) 88 mcg PO DAILY THYROID #90 tabs 07/16/20 rosuvastatin 5 mg tablet 5 mg PO DAILY CHOLSTEROL 10/21/20 folic acid 1 mg tablet 1 mg PO DAILY Supplement 04/15/22 sennosides 8.6 mg-docusate sodium 50 mg tablet (Stool Softener-Stimulant Laxative) 2 tab PO BID CONSTIPATION 30 days #120 tabs 04/29/22 amlodipine 5 mg tablet 5 mg PO QHS BLOOD PRESSURE 02/02/23 cholecalciferol (vitamin D3) 25 mcg (1,000 unit) tablet 25 mcg PO DAILY SUPPLEMENT 02/02/23 citalopram 20 mg tablet 10 mg PO DAILY DEPRESSION 02/02/23 insulin glargine 100 unit/mL (3 mL) subcutaneous pen (Lantus Solostar U-100 Insulin) 4 unit subcut DAILY Diabetes 02/02/23 insulin lispro 100 unit/mL subcutaneous pen (Humalog KwikPen (U-100) Insulin) 2 unit subcut TID DM 02/02/23 tramadol 50 mg tablet 50 mg PO Q8H PRN pain 02/02/23 losartan 100 mg tablet 100 mg PO DAILY BLOOD PRESSURE #90 tabs 02/10/23 apixaban 2.5 mg tablet 2.5 mg PO BID BLOOD THINNER #60 tabs 02/18/23 linagliptin 5 mg tablet 5 mg PO DAILY DIABETES 05/20/23 nystatin 100,000 unit/gram topical powder (Nyamyc) 1 applic topical BID rash 07/22/23 primidone 50 mg tablet (Mysoline) 50 mg PO QHS tremors 07/22/23 Hospital Course Operations None Procedures EKG Summary of Care Provided Minutes Spent on Discharge: 35 Hospital Course: The patient is an 82 y/o F w/ PMHx: Anxiety and Deprssion, HTN, HLD, Diabetes mellitus type II, Hx Breast CA s/p lumpectomy, PAF, Hypothyroidism, SIADH who presented [facility] the [facility] ED on 07/23/23 following mechanical fall brought in by margaux momin as she lives alone and unable to care for herself and mild generalized discomfort. CT of the brain with small vessel ischemia with no acute intracranial findings, CT cervical spine with multilevel degenerative changes, plain film of the lumbar spine with dextroscoliosis and multi degenerative changes, plain film of the pelvis with no evidence of any displaced pelvic or hip fractures, chest x-ray with rib with stable dextroscoliosis with no acute injury, plain film thoracic spine with dextroscoliosis otherwise no acute findings. No obvious acute injury, primarily musculoskeletal pain, admitted to DC, maintained on fall precaution, PT/OT/case management consultation for discharge planning with PT and OT assessments with recommendation for home health care and patient does have caregiver 4 times a week continue as needed Tylenol, scheduled tramadol per her home regimen. Encouraged high fiber diet for her chronic constipation issues and continued home PRN agents. Patient discharged to home with HHS in improved condition with recommended PCP follow-up within 3-5 days to review admission. DAY OF DISCHARGE PROGRESS NOTE: Subjective: Patient without acute event overnight per self and nursing report. He notes having 2 decent bowel movements following interventions the day prior and is feeling well. Patient denies fever, chills, nausea, emesis, abdominal pain, chest pain or dyspnea. Patient agreeable to discharge to home with home therapies. Patient will be discharged with follow-up with primary care physician within 3-5 days. Objective: T98.6, heart rate 74, BP 154/69, respiratory rate 16, 95% room air. Physical Examination: General: Awake, alert, oriented x 3 and cooperative, and up at the bedside eating breakfast, no acute distress, notes feeling well. Skin: Normal color, normal turgor, no icterus, no cyanosis except occasional staged ecchymoses. HEENT: AT/NC, EOMI, PERRLA, MMM. Lungs: Mildly diminished, greater is, proper effort, no rales, ronchi or wheezin g. Heart: Regular rate and rhythm; no gallop, rub audible. Abdomen: Soft, NTTP, bulge but again suspect this is because of habitus with significant kyphosis with no marked distention or intensity of the abdomen as well as similar appearance today prior with normalized BS. Extremities: No cyanosis, clubbing, or edema. Neurological: Patient awake, alert, oriented as noted, cognitive function intact ; pupils equally reactive to light and accommodation, cranial nerves II-XII grossly normal, moving all 4 extremities, no focal deficits, strength moderately global decreased only improved the day prior. Psychiatric: Affect appears bruised, normal, no acute evidence of depressive or anxiety feelings. Assessment and Plan: Please see hospital summary above. Weight / BMI Weight Weight: 102 lb 1.184 oz Body Mass Index (BMI) 19.9 ABG / Lab / Microbiology Data 07/24/23 06:50 07/24/23 06:50 Laboratory: Laboratory Results - last 24 hr 07/23/23 06:22: POC Glucose 145 H 07/23/23 11:45: POC Glucose 378 H 07/23/23 16:47: POC Glucose 286 H 07/23/23 21:08: POC Glucose 123 H D/C Instructions Discharge Diet: Low fat / Low cholesterol May resume sexual activity in: No Restrictions Weight Bearing Status: Weight bearing as tolerated Call your doctor if you observe: Fever of 101 or Higher, Numbness or Tingling, Inability to urinate, Shortness of breath, Dizziness, Chest pain, Increased palpitations (irregular heartbeat) and Uncontrolled pain Meaningful Use Info Meaningful Use Diagnoses (Choose all that apply): None applicable Discharge Plan Admission Admit Date/Time: 07/22/23 18:02 Primary Reason for Your Visit: Mechanical fall, debility with adult failure to thrive Attending Provider: Laura Vicente Primary Care Provider: Karla Bhagat Consulting Providers: Samuel Holland Instructions Patient Instructions: Treating Constipation, Eating a High-Fiber Diet Discharge Orders/Prescriptions Prescriptions: Continued levothyroxine [Synthroid] 88 mcg tablet 88 mcg PO DAILY Qty: 90 3RF Rx Instructions: Patient can only take brand name Synthroid rosuvastatin 5 mg tablet 5 mg PO DAILY tramadol 50 mg tablet 50 mg PO Q8H PRN (Reason: pain) amlodipine 5 mg tablet 5 mg PO QHS cholecalciferol (vitamin D3) 25 mcg (1,000 unit) tablet 25 mcg PO DAILY citalopram 20 mg tablet 10 mg PO DAILY linagliptin 5 mg tablet 5 mg PO DAILY folic acid 1 mg Tablet 1 mg PO DAILY insulin glargine [Lantus Solostar U-100 Insulin] 100 unit/mL (3 mL) insulin pen 4 unit SUBCUT DAILY Patient Comments: inject 4 units UNDER THE SKIN IN THE MORNING insulin lispro [Humalog KwikPen Insulin] 100 unit/mL insulin pen 2 unit SUBCUT TID Patient Comments: inject 2 units twice daily before meals sennosides-docusate sodium [Stool Softener-Stimulant Laxat] 8.6-50 mg Tablet 2 tab PO BID 30 Days Qty: 120 0RF primidone [Mysoline] 50 mg tablet 50 mg PO QHS nystatin [Nyamyc] 100,000 unit/gram powder 1 applic topical BID losartan 100 mg tablet 100 mg PO DAILY Qty: 90 3RF apixaban 2.5 mg tablet 2.5 mg PO BID Qty: 60 12RF Referrals / Follow Up: Karla Bhagat MD [Primary Care Provider] - (Follow-up within 3-5 days to review admission.) Disposition Disposition (needs filled in before D/C Order can be placed): Home Health Service Charges/Coding Visit Charges Inpatient E&M: 48343 Disch Hosp >30min
[2023-07-24] MEDS: Levothyroxine 88 MCG Tablet PO (06:10)
[2023-07-24 06:33] LABS: Bedside Glucose 141 mg/dL (74-106)
--- NOTE | 2023-07-24 07:30 | CASEMGMT ---
DC Planning F/U: Pt was accepted by [facility]. Green sheet on chart. Karlie Nichole RN CM
[2023-07-24 07:46] LABS: Absolute Lymphocyte Count 1.57 X10^3/uL (0.83-4.51); Absolute Neutrophil Count 2.8 X10^3/uL (2.0-7.7); Basophil# 0.09 X10^3/uL; Basophil% 1.6 % (0-1); Eosinophil# 0.35 X10^3/uL; Eosinophils% 6.3 % (0-5); Hematocrit 36.4 % (37-47); Hemoglobin 11.8 g/dL (12.0-15.0); Lymphocyte # 1.57 X10^3/ul (0.83-4.51); Lymphocyte % 28.3 % (19-41); Mean Corp Hgb Conc 32.4 g/dL (32-36); Mean Corpuscular Hgb 28.4 pg (27.0-32.0); Mean Corpuscular Volume 87.7 fL (81-99); Mean Platelet Vol. 10.9 fl (6.2-12.0); Monocyte# 0.73 X10^3/uL; Monocyte% 13.2 % (0-10); NRBC Flagged by Analyzer 0 % (0-5); Neutrophil # 2.77 X10^3/uL (2.7-7.7); Neutrophil % 50.1 % (47-70); Platelet Count 173 K/mm3 (150-450); RBC Distribution Width CV 13.5 % (11.6-14.6); RBC Distribution Width SD 43.5 fl (35.1-43.9); Red Blood Count 4.15 M/mm3 (4.2-5.4); White Blood Count 5.5 K/mm3 (4.4-11.0)
[2023-07-24 08:17] VITALS: O2SAT 94
[2023-07-24 08:20] LABS: ALB/GLOB Ratio 1.1 RATIO (0.9-2.4); AST(SGOT) 30 U/L (15-37); Alanine Aminotransfer ALT/SGPT 28 U/L (13-56); Albumin, Serum 2.8 g/dL (3.2-5.0); Alkaline Phosphatase 54 U/L (45-117); Anion Gap 7 (5-15); BUN 24 mg/dL (7-18); BUN/Creat Ratio 44.8 RATIO (10-20); Calcium,Total 9.1 mg/dL (8.5-10.1); Chloride 103 mmol/L (98-107); Creatinine, Serum 0.54 mg/dL (0.55-1.02); EST Glomerular Filtration Rate 115 mL/min (>60); Est Glom Filt Rate - Afr Amer 139 mL/min (>60); Estimated Creatinine Clearance 30.08 ml/min; Globulin 2.5 g/dL (2.2-4.2); Glucose 115 mg/dL (74-106); Potassium 3.6 mmol/L (3.5-5.1); Protein, Total 5.3 g/dL (6.4-8.2); Sodium Level 136 mmol/L (136-145)
[2023-07-24 08:51] VITALS: BP 154/69; PULSE 74; RESP 16; TEMP 37; O2SAT 95
[2023-07-24] MEDS: Citalopram 10 MG Tablet PO (11:00)
[2023-07-24] MEDS: Senna/Docusate Sodium 1 Tablet 2 TABLET PO (11:00)
[2023-07-24] MEDS: APIXABAN 2.5 MG TABLET (WCH) PO (11:00)
[2023-07-24] MEDS: Folic Acid 1 MG Tablet PO (11:00)
[2023-07-24] MEDS: Losartan Potassium 100 MG Tablet PO (11:00)
[2023-07-24] MEDS: traMADol 50 MG Tablet 100 MG PO (11:04)
== END 2023-07-24 12:22 | disposition home health service (06) | DRG 948 ==
LOC: ED 17:05 → MS3 18:32
PROVIDERS: Admitting Provider Hospitalist; Emergency Provider Emergency Medicine; PCP Internal Medicine; Visit Provider Family Medicine
DX: R53.81 Other malaise (principal); Z68.1 Body mass index [BMI] 19.9 or less, adult; R62.7 Adult failure to thrive; I48.0 Paroxysmal atrial fibrillation; E03.9 Hypothyroidism, unspecified; E86.0 Dehydration; E11.9 Type 2 diabetes mellitus without complications; Z79.4 Long term (current) use of insulin; I10 Essential (primary) hypertension; F32.A Depression, unspecified; E86.1 Hypovolemia; G25.0 Essential tremor; I25.10 Atherosclerotic heart disease of native coronary artery without angina pectoris; E78.00 Pure hypercholesterolemia, unspecified; F41.9 Anxiety disorder, unspecified; K59.09 Other constipation; W18.39XA Other fall on same level, initial encounter; G89.29 Other chronic pain; Z96.641 Presence of right artificial hip joint; Z66 Do not resuscitate; Z79.01 Long term (current) use of anticoagulants; Z79.84 Long term (current) use of oral hypoglycemic drugs; Z79.891 Long term (current) use of opiate analgesic; Z79.899 Other long term (current) drug therapy; Z85.3 Personal history of malignant neoplasm of breast; Z87.891 Personal history of nicotine dependence
CPT/HCPCS: 36415; 70450; 71111; 72072; 72100; 72125; 72170; 80048; 80053; 81001; 82962; 85025; 97162; 97166; 99285; J7120; A4216

== ENCOUNTER 2023-08-20 17:45 | Emergency (ER) | payer MEDICARE, SELFPAY ==
[2023-08-20 17:48] VITALS: BP 154/109; PULSE 136; RESP 18; TEMP 36.5; O2SAT 98
--- NOTE | 2023-08-20 18:05 | EKG12_ITS ---
Test Reason : DYSRHYTHMIA Blood Pressure : / mmHG Vent. Rate : 124 BPM Atrial Rate : 000 BPM P-R Int : 000 ms QRS Dur : 084 ms QT Int : 324 ms P-R-T Axes : 000 -35 -11 degrees QTc Int : 465 ms Atrial fibrillation with rapid ventricular response Left axis deviation Septal infarct (cited on or before 12-AUG-2009) Abnormal ECG Confirmed by LORY JOLLY, NASH ([id number]), publications editor MAKAYLA JIN ([id number]) on 08/24/2023 10:29:38 AM Referred By: Confirmed By:JOSETTE HENLEY MD
[2023-08-20 18:41] LABS: Absolute Lymphocyte Count 1.83 X10^3/uL (0.83-4.51); Absolute Neutrophil Count 2.5 X10^3/uL (2.0-7.7); Basophil# 0.07 X10^3/uL; Basophil% 1.3 % (0-1); Eosinophil# 0.25 X10^3/uL; Eosinophils% 4.8 % (0-5); Hematocrit 43.7 % (37-47); Hemoglobin 14.1 g/dL (12.0-15.0); Lymphocyte # 1.83 X10^3/ul (0.83-4.51); Lymphocyte % 35.1 % (19-41); Mean Corp Hgb Conc 32.3 g/dL (32-36); Mean Corpuscular Hgb 28.1 pg (27.0-32.0); Mean Corpuscular Volume 87.2 fL (81-99); Mean Platelet Vol. 10.3 fl (6.2-12.0); Monocyte# 0.59 X10^3/uL; Monocyte% 11.3 % (0-10); NRBC Flagged by Analyzer 0 % (0-5); Neutrophil # 2.47 X10^3/uL (2.7-7.7); Neutrophil % 47.3 % (47-70); Platelet Count 192 K/mm3 (150-450); RBC Distribution Width CV 13.8 % (11.6-14.6); RBC Distribution Width SD 43.8 fl (35.1-43.9); Red Blood Count 5.01 M/mm3 (4.2-5.4); White Blood Count 5.2 K/mm3 (4.4-11.0)
--- NOTE | 2023-08-20 18:45 | RAD_ITS ---
STUDY: X-RAY CHEST REASON FOR EXAM: Female, 83 years old. chest pain TECHNIQUE: Single AP portable view of the chest. COMPARISON: 12/19/2022 FINDINGS: The lungs are clear and expanded. There is no demonstrated pleural abnormality. Normal size heart. Normal mediastinum and dave. Normal visualized pulmonary arteries. Normal visualized aortic arch and descending thoracic aorta. There is a dextroscoliosis of the thoracic spine. Normal visualized ribs, clavicles, and shoulders. There is no demonstrated abnormality of the visualized soft tissue structures of the upper abdomen. RAD/Chest 1 View (Portable) IMPRESSION: Normal x-ray examination of the chest. Electronically Signed: Yahir Blankenship MD at 19:17 EDT ,
[2023-08-20 18:50] LABS: International Normalized Ratio 1.1; Prothrombin Time (Protime)PT. 14.3 SECONDS (11.7-14.9)
[2023-08-20 19:02] LABS: Bedside Glucose 98 mg/dL (74-106)
--- NOTE | 2023-08-20 19:02 | EX.ED.DYSGE1 ---
HPI History of Present Illness Chief Complaint: Palpitations Informant: patient and PCP Narrative Narrative: Patient has a history of paroxysmal atrial fibrillation, patient states she had 1 episode of it in the past that she knows of. She did not feel symptoms with it. She is on Eliquis. Today an occupational therapist was at her home, checked her vital signs and she appeared to be in A-fib, tachycardic and irregular. They talk to her PCP who recommended she come to the ED. She is relatively asymptomatic although she states she has had more shakiness/anxiety than usual for the last few days. The last time her vital signs were checked by therapist was 4-5 days ago and her heart rate was fine then but she does not know the specifics. [facility] Medical History Anxiety Avascular necrosis of bone of hip Back pain Bilateral carotid bruits Bladder disease Breast cancer Cancer Cardiology follow-up encounter Carotid artery stenosis Carotid stenosis, bilateral Chronic constipation Chronic pain Constipation Coronary artery disease 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 Depression Diabetes mellitus, type II Dietary restriction Dizziness Easy bruising Essential hypertension Essential hypertension Heartburn High cholesterol History of CHF (congestive heart failure) History of echocardiogram History of edema History of irregular heartbeat History of pain when walking History of renal disease History of steroid therapy History of stress test Hyponatremia with extracellular fluid depletion Hypothyroidism Injury of head and neck Irregular heart beat Leg cramps Loss of hearing Osteoporosis Pain Paroxysmal atrial fibrillation Pneumonia Shortness of breath on exertion Syncope Thyroid disease Transaminitis Uses wheelchair Valvular heart disease Vitamin D deficiency Wears glasses Wears partial dentures Home Medications Synthroid 88 mcg tablet (levothyroxine) 88 mcg PO DAILY THYROID #90 tabs 07/16/20 [Rx Last Taken 12/19/22] rosuvastatin 5 mg tablet 5 mg PO DAILY CHOLSTEROL 10/21/20 [History Last Taken 12/19/22] folic acid 1 mg tablet 1 mg PO DAILY Supplement 04/15/22 [History Last Taken 12/18/22] sennosides 8.6 mg-docusate sodium 50 mg tablet (Stool Softener-Stimulant Laxative) 2 tab PO BID CONSTIPATION 30 days #120 tabs 04/29/22 [Rx Last Taken 12/18/22] cholecalciferol (vitamin D3) 25 mcg (1,000 unit) tablet 25 mcg PO DAILY SUPPLEMENT 02/02/23 [History Last Taken Unknown] citalopram 20 mg tablet 10 mg PO DAILY DEPRESSION 02/02/23 [History Last Taken Unknown] insulin glargine 100 unit/mL (3 mL) subcutaneous pen (Lantus Solostar U-100 Insulin) 4 unit subcut DAILY Diabetes 02/02/23 [History Last Taken Unknown] insulin lispro 100 unit/mL subcutaneous pen (Humalog KwikPen (U-100) Insulin) 2 unit subcut TID DM 02/02/23 [History Last Taken Unknown] tramadol 50 mg tablet 50 mg PO Q8H PRN pain 02/02/23 [History Last Taken Unknown] losartan 100 mg tablet 100 mg PO DAILY BLOOD PRESSURE #90 tabs 02/10/23 [Rx Last Taken Unknown] apixaban 2.5 mg tablet 2.5 mg PO BID BLOOD THINNER #60 tabs 02/18/23 [Rx Last Taken 08/20/23 17:00] linagliptin 5 mg tablet 5 mg PO DAILY DIABETES 05/20/23 [History Last Taken Unknown] nystatin 100,000 unit/gram topical powder ([facility]) 1 applic topical BID rash 07/22/23 [History Last Taken Unknown] diltiazem HCl 120 mg capsule,extended release 24 hr 120 mg PO DAILY #30 caps 08/20/23 [Rx Last Taken Unknown] Allergy/AdvReac Type Severity Reaction Status Date / Time metformin Allergy Severe Rash Verified 08/20/23 17:48 neomycin [Neomycin] Allergy Severe Unknown Verified 08/20/23 17:48 Tetracyclines Allergy Severe Anaphylaxis Verified 08/20/23 17:48 Sulfa (Sulfonamide Allergy Constipatio Verified 08/20/23 17:48 Antibiotics) n metoprolol AdvReac Intermediate Bradycardia Verified 08/20/23 17:48 flecainide AdvReac bradycardia Verified 08/20/23 17:48 in combo with Metoprolol Family History Mother Thyroid disorder Father Alzheimer disease Surgical History History of cardiac catheterization History of foot surgery History of left heart catheterization (12/28/14) History of lumpectomy of left breast (~12/2022) History of right hip replacement History of thyroidectomy History of tonsillectomy and adenoidectomy Hx of colonoscopy S/P breast biopsy, left (~10/2022) S/P total right hip arthroplasty Social History household members: none Smoking Status: Former smoker how long ago did patient quit smokin years ago alcohol intake: current alcohol intake frequency: a few times a month Alcohol type: wine substance use type: does not use caffeine: Yes Type: coffee Number of servings: 2 ROS ROS ED Constitutional Constitutional ED: Reports other Details: Shaky/anxious patient ; Denies chills or fever(s) Eyes Eyes: Denies change in vision or diplopia ENT ENT ED: Denies rhinorrhea or sore throat Cardiovascular Cardiovascular: Reports pedal edema; Denies chest pain or palpitations Respiratory/Chest Respiratory/Chest: Denies cough or dyspnea Gastrointestinal Gastrointestinal: Denies abdominal pain, diarrhea, nausea or vomiting Genitourinary Genitourinary ED: Denies dysuria or hematuria Musculoskeletal Musculoskeletal: Denies back pain or neck pain Integumentary Denies abscess or rash Neurologic Neurologic: Denies headache(s), paresthesias or weakness Psychiatric Psychiatric: Denies anxiety or suicidal thoughts EXAM Physical Exam Const Vital Signs: 08/20/23 17:48 08/20/23 19:10 08/20/23 19:27 Temperature 97.7 F L Temperature Source Temporal Pulse Rate 136 H 73 Respiratory Rate 18 14 Respiratory Effort Normal Non-Labored Blood Pressure 154/109 H 123/61 H Blood Pressure Mean 124 81 Pulse Ox 98 98 Oxygen Delivery Method Room Air Room Air 08/20/23 19:27 08/20/23 20:00 Temperature Temperature Source Pulse Rate 73 Respiratory Rate 16 Respiratory Effort Blood Pressure 148/74 H Blood Pressure Mean 98 Pulse Ox 97 Oxygen Delivery Method Room Air Room Air Positive well nourished and well developed General Appearance ED: well developed and NAD HEENT Reports moist mucous membranes normocephalic and atraumatic Eyes PERRL and EOMs intact bilaterally Neck full ROM and supple Resp normal respiratory effort and clear to auscultation bilaterally Cardio no murmurs Rate: tachycardic Rhythm: abnormal rhythm irregularly irregular GI non-tender and non-distended Auscultation: normoactive bowel sounds Palpation: soft Back/Spine no CVA tenderness Back/Spine Narrative: Kyphotic General Back: other FROM Extremity normal to inspection General Extremety ED: Negative for edema, pulses abnormal or tenderness General Extremity: Negative for edema or pulses abnormal Neuro oriented x3, CN's II-XII intact bilaterally and no sensory deficits noted Sensorium / Orientation: awake and alert Motor Exam: strength 5/5 throughout Psych Mood & Affect: anxious Skin no rashes or lesions noted and no wounds MDM MDM MDM Narrative Medical decision making narrative: Labs are unremarkable, including her kidney function. She was given Cardizem 20 mg IV push here and observed, her rate was well controlled in the 70s and she tolerated well, blood pressure 148/74 after treatment, and she is still asymptomatic. Discussed with cardiology Dr. Apple, we discussed her prior echo showing some mild diastolic dysfunction, normal systolic function, and the fact that she takes losartan and amlodipine for blood pressure. He recommends starting her on Cardizem 120 CD in addition to discontinuing her amlodipine, and following up as an outpatient and agrees with all of that. She is comfortable with that plan. History & Record Review Discussion w/independent historian: Patient, Family (son) and Other (PCP) Lab Data Attestation: I reviewed the patient's lab results. Labs: Laboratory Results - last 24 hr 08/20/23 08/20/23 18:30 18:43 WBC 5.2 RBC 5.01 Hgb 14.1 Hct 43.7 MCV 87.2 MCH 28.1 MCHC 32.3 RDW Std Deviation 43.8 RDW Coeff of Obed 13.8 Plt Count 192 MPV 10.3 Immature Gran % (Auto) 0.200 Neut % (Auto) 47.3 Lymph % (Auto) 35.1 Harding % (Auto) 11.3 H Eos % (Auto) 4.8 Baso % (Auto) 1.3 H Absolute Neuts (auto) 2.5 Absolute Lymphs (auto) 1.83 Nucleated RBC % 0 PT 14.3 INR 1.1 Sodium 140 Potassium 3.8 Chloride 108 H Carbon Dioxide 27.0 Anion Gap 5 BUN 24 H Creatinine 0.66 Est GFR (MDRD) Af Amer 110 Est GFR (MDRD) Non-Af 91 BUN/Creatinine Ratio 36.5 H Glucose 106 Calcium 9.8 Troponin I High Sens 8 POC Glucose 98 Radiography Diagnostic Testing: Clinical Impression(s) from Imaging Studies Chest X-Ray 08/20/23 18:45 IMPRESSION: Normal x-ray examination of the chest. Electronically Signed: Yahir Blankenship MD at 19:17 EDT , Rhythm Strip Rhythm Strip: A-fib Rate: 133 Ectopy: None EKG Initial EKG: Attestation: I personally reviewed and interpreted this EKG as follows: Interpretation: No Acute Injury Pattern, Atrial Fibrillation and Non-Specific ST Changes Management Discussion w/another healthcare provider: Digital Account Executive (Cardiology) Discharge Plan Triage Chief Complaint: Palpitations ED Provider: Santy Bowden Dx/Rx/DC Orders Clinical Impression: Atrial fibrillation with RVR Instructions: AFib Dc Prescriptions: New diltiazem HCl 120 mg capsule,extended release 24hr 120 mg PO DAILY Qty: 30 1RF Continued levothyroxine [Synthroid] 88 mcg tablet 88 mcg PO DAILY Qty: 90 3RF Rx Instructions: Patient can only take brand name Synthroid rosuvastatin 5 mg tablet 5 mg PO DAILY tramadol 50 mg tablet 50 mg PO Q8H PRN (Reason: pain) cholecalciferol (vitamin D3) 25 mcg (1,000 unit) tablet 25 mcg PO DAILY citalopram 20 mg tablet 10 mg PO DAILY linagliptin 5 mg tablet 5 mg PO DAILY folic acid 1 mg Tablet 1 mg PO DAILY insulin glargine [Lantus Solostar U-100 Insulin] 100 unit/mL (3 mL) insulin pen 4 unit SUBCUT DAILY Patient Comments: inject 4 units UNDER THE SKIN IN THE MORNING insulin lispro [Humalog KwikPen Insulin] 100 unit/mL insulin pen 2 unit SUBCUT TID Patient Comments: inject 2 units twice daily before meals sennosides-docusate sodium [Stool Softener-Stimulant Laxat] 8.6-50 mg Tablet 2 tab PO BID 30 Days Qty: 120 0RF nystatin [Nyamyc] 100,000 unit/gram powder 1 applic topical BID losartan 100 mg tablet 100 mg PO DAILY Qty: 90 3RF apixaban 2.5 mg tablet 2.5 mg PO BID Qty: 60 12RF Discontinued amlodipine 5 mg tablet 5 mg PO QHS Primary Care Provider: Karla Bhagat Referrals: Karla Bhagat MD [Primary Care Provider] - Rachel Apple MD [Med Staff - Active Staff] - 1-2 Weeks Disposition Disposition: Home, Self Care
[2023-08-20 19:03] LABS: Anion Gap 5 (5-15); BUN 24 mg/dL (7-18); BUN/Creat Ratio 36.5 RATIO (10-20); Calcium,Total 9.8 mg/dL (8.5-10.1); Chloride 108 mmol/L (98-107); Creatinine, Serum 0.66 mg/dL (0.55-1.02); EST Glomerular Filtration Rate 91 mL/min (>60); Est Glom Filt Rate - Afr Amer 110 mL/min (>60); Glucose 106 mg/dL (74-106); Potassium 3.8 mmol/L (3.5-5.1); Sodium Level 140 mmol/L (136-145); Troponin-I HS (w/2H Reflex) 8 pg/mL (3.0-54.0)
[2023-08-20] MEDS: dilTIAZem 25 MG/5 ML Vial 20 MG IV BOLUS (19:18)
[2023-08-20 19:27] VITALS: BP 123/61; PULSE 73; RESP 14; O2SAT 98
[2023-08-20 19:28] VITALS: BMI 23.0
[2023-08-20 20:00] VITALS: BP 148/74; PULSE 73; RESP 16; O2SAT 97
[2023-08-20 20:39] LABS: Reflex Troponin-HS? (from REC) Y
[2023-08-20 21:17] LABS: Troponin-I HS 8 pg/mL (3.0-54.0)
[2023-08-20] MEDS: dilTIAZem 30 MG Tablet PO (21:27)
[2023-08-20 21:29] VITALS: BP 154/99; PULSE 102; RESP 16; O2SAT 97
== END 2023-08-20 23:03 | disposition home or self-care (01) ==
PROVIDERS: Emergency Provider Emergency Medicine; PCP Internal Medicine; Visit Provider Emergency Medicine
DX: I48.0 Paroxysmal atrial fibrillation (principal); I11.0 Hypertensive heart disease with heart failure; I50.32 Chronic diastolic (congestive) heart failure; E11.9 Type 2 diabetes mellitus without complications; Z79.4 Long term (current) use of insulin; I25.10 Atherosclerotic heart disease of native coronary artery without angina pectoris; E78.00 Pure hypercholesterolemia, unspecified; Z79.01 Long term (current) use of anticoagulants; Z79.899 Other long term (current) drug therapy; Z87.891 Personal history of nicotine dependence
CPT/HCPCS: 71045; 80048; 82962; 84484; 85025; 85610; 93005; 99284; A4216

== ENCOUNTER 2023-09-28 12:27 | Outpatient (RCR) | payer MEDICARE, SELFPAY ==
--- NOTE | 2023-09-28 13:53 | HP.PTEVAL ---
Patient's Visit Information Visit Information Visit Information: ELLEN ESTRADA is a 83 year old F referred to Physical Therapy by Dr. Karla Bhagat MD with a diagnosis of NECK PAIN ,DDD NECK. Date of Evaluation: 09/28/23 Physical Therapist: Ede Tavera, PT, Cert MDT, OCS Visit Plan Frequency: 2x /Week Duration: 4 Weeks Plan: PRECUATION : OSTEOPROSIS PT INTERVETIONS CERVICVAL ROM ,STRENGTHENING , POSTURAL EX'S ,AND STM(MANAUL THERAPY) Subjective Subjective: This 83 y/o female presents to physical therapy with neck pain. Patient has had cervical pain ~ 6weeks due to falling. Patient went ER and was admitted to hospital for 2 days. Then patient received [facility] PT for balance. Seen DR recommended PT. Patient had x-rays showed DDD. Patient has left neck pain ,initially had WANG but subsided. Aggravating factors turning especially to left and standing ,extension, lifting with UE. Alleviating factors medication tramadol and rest. Denies paresthesia/tingling. Denies WANG /nausea/dizziness/tinnitus . Patient sleeping okay. 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 Patient lives alone . 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 Patient requires assist with dressing,bathing ,and cooking otherwise patient uses microwave. Patient uses rollator for gait. Patient has been in PT for back Patient condition affects QOL and function. Patient goals to decrease neck pain. SOCIAL: VOCATION: retired Pain Left Neck: Pain Intensity (Out of 10): 10 Pain Intensity Range: 10 Objective Objective: POSTURE: mod/severe thoracic kyphosis ,scolisis mod lateral curve S concave left ,forward head GAIT: ambulates with rollator scolisis hips/knees flexed thoracic kyphosis NEURO: denies paresthesia/tingling ,reflexes C5-6-7 1/3 AROM: BUE WFL shoulder flexion ~ 90 degrees left right ~ 100 degrees MMT: grossly 4-/5 ,except shoulder 3+/5 CERVICAL ROM: min loss flexion ,lateral flexion severe loss ,rotation severe left ,mod/severe right ,extension severe Special Tests C/S Radiculapathy - Left Upper limb tension test: Negative C/S Radiculapathy - Right Upper limb tension test: Negative C/S Radiculapathy - Left Cervical distraction: Negative C/S Radiculapathy - Right Cervical distraction: Negative C/S Radiculapathy - Left Relief test: Negative C/S Radiculapathy - Right Relief test: Negative Sharp Brittany: Negative Vertebral Artery Test: Negative Alar Ligament Test: Negative Balance/Special Test Scores Oswestry Neck Score: 30 Goals Goal 1:: Patient to be I with HEP for neck Goal Time Frame: 4-6 Weeks Goal 2:: Patient to improve posture with maintaining head up 60% OF THE TIME Goal Time Frame: 4-6 Weeks Goal 3:: Patient to demonstrate 40% improvement with improve function and less pain Goal Time Frame: 4-6 Weeks Goal 4:: Patient to improve cervical ROM for function of recovery for ADLS Goal Time Frame: 4-6 Weeks Goal 5:: Patient to improve neck oswestry score by 5 points to improve QOL Goal Time Frame: 4-6 Weeks Rehabilitation Potential Physical Therapy Diagnosis: Patient has neck pain with severe scolisis ,poor cervical ROM ,weakness shoulders and decrease posture with fatigue to maintain head up ,thus will benefit from skilled PT Rehabilitation Potential: Fair Anticipated Interventions Patient/Client Instruction: Educate patient on: Condition and Plan of Care For the Purpose of:: To decrease pain, To increase ROM, To improve muscle performance and motor function, To increase tolerance to activity/condition/position, To improve ability of physical actions for home/community/work/leisure, To improve health of tissue, To decrease soft tissue restriction, To increase flexibility/ROM, To reduce risk of recurrence and To prevent re-injury Therapeutic Exercise to Include: Strength training, Postural training, Flexibilty training and Active ROM For the Purpose of:: To decrease pain, To increase ROM, To improve muscle performance and motor function, To improve ability to perform ADL's, To increase tolerance to activity/condition/position, To improve ability of physical actions for home/community/work/leisure, To improve health of tissue, To decrease soft tissue restriction and To improve endurance Manual Therapy Techniques to Include: Soft tissue mobilization For the Purpose of:: To decrease pain, To improve nutrient delivery to tissue, To increase oxygenation perfusion, To improve health of tissue and To decrease soft tissue restriction Text: Thank you for the opportunity to evaluate your patient. For Medicare and Medicare HMO plans, please review the plan of care and approve it. It will need to be FAXED BACK to us at [phone] for Medicare purposes. For Medicare only, by signing this I certify the plan of care. Please let me know if there are questions or concerns regarding this plan of care. Physician Signature: Date:
== END 2023-09-28 19:00 | disposition home or self-care (01) ==
LOC: PT 12:27
PROVIDERS: PCP Internal Medicine; Visit Provider Internal Medicine
DX: M54.30 Sciatica, unspecified side (principal)
CPT/HCPCS: 97110; 97162

== ENCOUNTER 2023-10-10 18:05 | Inpatient (IN) | payer MEDICARE, SELFPAY ==
[2023-10-10] VITALS (7 sets, daily range): BP systolic 135–170; BP diastolic 72–109; PULSE 97–123; RESP 14–20; TEMP 36.4; O2SAT 94–97; BMI 22.7
--- NOTE | 2023-10-10 18:20 | ED.RN ---
pt states sensation on lt fells different but that is NOT new.
[2023-10-10 18:36] LABS: Bedside Glucose 231 mg/dL (74-106)
--- NOTE | 2023-10-10 18:39 | CT_ITS ---
STUDY: CT BRAIN WITHOUT CONTRAST REASON FOR EXAM: Female, 83 years old. Weakness and speech difficulties RADIATION DOSAGE (If Supplied By Facility): CTDIvol = ( 29.71 ) mGy, DLP = ( 560.09 ) mGycm TECHNIQUE: Transaxial CT imaging of the brain was performed without administration of intravenous contrast material. Individualized dose optimization techniques were used for this CT. COMPARISON: July 22, 2023 FINDINGS: Normal soft tissue structures. Normal calvarium. Calcification of cavernous carotids Normal size ventricles and extra-axial spaces for the patient''s age. Mild periventricular white matter ischemic changes. Normal basal ganglia and thalami. Normal brainstem. Normal cerebellum. There is no intracranial hemorrhage. There are no findings of an acute ischemic infarction. Normal visualized paranasal sinuses. Postsurgical changes of the orbits CT/Brain/Head without Contrast IMPRESSION: Mild periventricular white matter ischemic changes. No evidence for acute hemorrhage.. If concern for acute infarct MRI recommended. Electronically Signed: Scooby Horn MD at 19:34 EST Reading Location ID and State: [facility] / [place] Tel , Service support ,
--- NOTE | 2023-10-10 18:41 | EKG12_ITS ---
Test Reason : REPEAT Blood Pressure : / mmHG Vent. Rate : 121 BPM Atrial Rate : 000 BPM P-R Int : 000 ms QRS Dur : 080 ms QT Int : 282 ms P-R-T Axes : 000 -07 -52 degrees QTc Int : 400 ms Atrial fibrillation with rapid ventricular response Septal infarct , age undetermined Lateral infarct , age undetermined Abnormal ECG Confirmed by NIDHI JOLLY, LAINE ([id number]), editor news CELESTE RODRIGUEZ ([id number]) on 10/19/2023 2:14:18 PM Referred By: Confirmed By:LAINE TERRELL MD
--- NOTE | 2023-10-10 18:43 | EDS_ITS ---
HPI History of Present Illness Chief Complaint: Neuro S/Sx Informant: patient and family Narrative Narrative: Patient presents due to weakness and speech difficulty. History is from patient and her son. Patient states that last night she went to bed she felt fine. She does live in her own apartment about a minute from the family. She states when she woke up this morning she just did not feel right. She had trouble getting dressed. She states it was not due to any specific weakness. It was more due to being confused on how to arrange and organize putting on her close. She states she felt as though her speech was slurred. She states she stated that the right words but they were a little bit slurred. She spilled water when she tried to take her meds in the morning. She spilled things during the day. But this was with both hands. This did not lateralize. She has eaten but less than normal because its been hard to eat. She now states she is feeling better. There is nobody that heard her speak when she was having troubles. She does have a history of A-fib and has been on Eliquis and has been taking it. She is not currently on aspirin. She also has a history of carotid stenosis of about 80%. They have talked with her about surgery but it was chosen not to do this. That evidently was evaluated somewhere between 3 and 5 years ago. She has never actually had a stroke or TIA. [facility] Medical History Anxiety Avascular necrosis of bone of hip Back pain Bilateral carotid bruits Bladder disease Breast cancer Cancer Cardiology follow-up encounter Carotid artery stenosis Carotid stenosis, bilateral Chronic constipation Chronic pain Constipation Coronary artery disease 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 Depression Diabetes mellitus, type II Dietary restriction Dizziness Easy bruising Essential hypertension Essential hypertension Heartburn High cholesterol History of CHF (congestive heart failure) History of echocardiogram History of edema History of irregular heartbeat History of pain when walking History of renal disease History of steroid therapy History of stress test Hyponatremia with extracellular fluid depletion Hypothyroidism Injury of head and neck Irregular heart beat Leg cramps Loss of hearing Osteoporosis Pain Paroxysmal atrial fibrillation Pneumonia Shortness of breath on exertion Syncope Thyroid disease Transaminitis Uses wheelchair Valvular heart disease Vitamin D deficiency Wears glasses Wears partial dentures Home Medications Synthroid 88 mcg tablet (levothyroxine) 88 mcg PO DAILY THYROID #90 tabs 07/16/20 [Rx Last Taken 12/19/22] rosuvastatin 5 mg tablet 5 mg PO DAILY CHOLSTEROL 10/21/20 [History Last Taken 12/19/22] folic acid 1 mg tablet 1 mg PO DAILY Supplement 04/15/22 [History Last Taken 12/18/22] cholecalciferol (vitamin D3) 25 mcg (1,000 unit) tablet 25 mcg PO DAILY SUPPLEMENT 02/02/23 [History Last Taken Unknown] citalopram 20 mg tablet 10 mg PO DAILY DEPRESSION 02/02/23 [History Last Taken Unknown] insulin glargine 100 unit/mL (3 mL) subcutaneous pen (Lantus Solostar U-100 Insulin) 4 unit subcut DAILY Diabetes 02/02/23 [History Last Taken Unknown] insulin lispro 100 unit/mL subcutaneous pen (Humalog KwikPen (U-100) Insulin) 2 unit subcut TID DM 02/02/23 [History Last Taken Unknown] tramadol 50 mg tablet 50 mg PO Q8H PRN pain 02/02/23 [History Last Taken Unknown] losartan 100 mg tablet 100 mg PO DAILY BLOOD PRESSURE #90 tabs 02/10/23 [Rx Last Taken Unknown] apixaban 2.5 mg tablet 2.5 mg PO BID BLOOD THINNER #60 tabs 02/18/23 [Rx Last Taken 08/20/23 17:00] linagliptin 5 mg tablet 5 mg PO DAILY DIABETES 05/20/23 [History Last Taken Unknown] diltiazem HCl 120 mg capsule,extended release 24 hr 120 mg PO DAILY #30 caps 08/20/23 [Rx Last Taken Unknown] nystatin 100,000 unit/gram topical powder (Nyamyc) 1 applic topical BID PRN rash 09/14/23 [History Last Taken Unknown] sennosides 8.6 mg-docusate sodium 50 mg tablet (Stool Softener-Stimulant Laxative) 2 tab PO DAILY CONSTIPATION 09/14/23 [History Last Taken Unknown] Allergy/AdvReac Type Severity Reaction Status Date / Time metformin Allergy Severe Rash Verified 10/10/23 18:07 neomycin [Neomycin] Allergy Severe Unknown Verified 10/10/23 18:07 Tetracyclines Allergy Severe Anaphylaxis Verified 10/10/23 18:07 Sulfa (Sulfonamide Allergy Constipatio Verified 10/10/23 18:07 Antibiotics) n metoprolol AdvReac Intermediate Bradycardia Verified 10/10/23 18:07 flecainide AdvReac bradycardia Verified 10/10/23 18:07 in combo with Metoprolol Family History Mother Thyroid disorder Father Alzheimer disease Surgical History History of cardiac catheterization History of foot surgery History of left heart catheterization (12/28/14) History of lumpectomy of left breast (~12/2022) History of right hip replacement History of thyroidectomy History of tonsillectomy and adenoidectomy Hx of colonoscopy S/P breast biopsy, left (~10/2022) S/P total right hip arthroplasty Social History household members: none Smoking Status: Former smoker how long ago did patient quit smokin years ago alcohol intake: current alcohol intake frequency: a few times a month Alcohol type: wine substance use type: does not use caffeine: Yes Type: coffee Number of servings: 2 ROS ROS ED ROS Narrative A complete review of systems was performed and is negative except as documented in the history of present illness. Some specific details below. Constitutional: No recent fevers or chills. No rigors. Patient has not generally felt ill. EYE: No discharge, visual complaints, or pain. No visual field cut. ENT: No difficulty swallowing. No swelling. No sinus pressure or pain. No nasal discharge. No change in hearing. No ear pain. CV: No chest pain, pressure or aching. No palpitations or irregular beats. Patient has not been presyncopal or syncopal. She felt confused but not directly weak or presyncopal. Respiratory: No trouble breathing. No cough. No wheezing. No sputum production. No pain with breathing. GI: No abdominal pain. No nausea vomiting diarrhea. No blood in stool. : No frequency dysuria or hematuria. Musculoskeletal: No recent trauma. No pains. No swelling. Skin: No rash. Nondiaphoretic. Neuro: Please see history of present illness also. Endocrine: No polyuria or polydipsia. EXAM Physical Exam Narrative Exam Narrative: CONSTITUTIONAL: Patient is nontoxic in appearance. The patient looks comfortable. Work of breathing looks normal. HEENT: No notable trauma. Mucous membranes moist. No sinus tenderness. No facial droop. EYES: No conjunctival injection. No proptosis. No pain with range of motion. No pallor. NECK: No meningismus. No JVD. There is a bruit heard on the right side. CARDIOVASCULAR: Regular rate. Regular rhythm. No notable murmur heard in the chest despite hearing the bruit on the right neck. No JVD. RESPIRATORY: No respiratory distress. Breathing is unlabored. No wheezes. No rhonchi. No rales. No pain with a deep breath. Saturations are normal at 96% on room air showing no hypoxia GASTROINTESTINAL: Not distended. Bowel sounds are normal. No tenderness. No guarding. No rebound. No palpable mass. No bruit. GENITOURINARY: No tenderness over the bladder. No CVA tenderness. MUSCULOSKELETAL: Atraumatic. No peripheral edema. NEUROLOGICAL: Patient is alert and oriented. No focal deficit noted. NIH stroke scale is 0 at this time. SKIN: No noted rashes. No diaphoresis. No vesicles noted. No notable pallor. PSYCHIATRIC: Patient is calm. Mood is appropriate. Const Vital Signs: 10/10/23 18:07 10/10/23 18:23 10/10/23 19:29 Temperature 97.6 F L Temperature Source Temporal Pulse Rate 97 106 H 107 H Respiratory Rate 18 17 20 H Blood Pressure 154/72 H 147/87 H 135/109 H Blood Pressure Mean 99 107 117 Pulse Ox 96 94 96 Oxygen Delivery Method Room Air Room Air Room Air 10/10/23 20:00 10/10/23 21:00 10/10/23 22:00 Temperature Temperature Source Pulse Rate 119 H 121 H 123 H Respiratory Rate 14 17 17 Blood Pressure 165/74 H 160/81 H 170/87 H Blood Pressure Mean 104 107 114 Pulse Ox 97 96 94 Oxygen Delivery Method Room Air Room Air Room Air [facility] Narr[place] Medical decision making narrative: My independent interpretation of the patient's CT shows no acute bleeding or mass. Reading shows no evidence for acute cyst. My independent evaluation of her single view chest x-ray shows significant scoliosis. No acute process. This is consistent with final read. Patient CBC is overall normal. Patient's electrolytes show minimal elevation of chloride and high BUN to creatinine ratio. Glucose is just a little bit up at 180. History bone in his neck could have. Patient's urine is negative. Patient started having a little bit of chest discomfort. But her heart rate went up. She now states that she does not think she took her diltiazem today because she was so confused this morning. Her heart rate is now 120s to 130 in atrial fibrillation. We will get her some diltiazem to slow this down. Her discomfort is now gone though. We have put in an order for [facility] telestroke to evaluate her but we are still waiting this. But this patient is already on Eliquis. She is not on any antiplatelet therapy. She has a history of narrowed carotids. She had confusion with dropping items and dysarthria this morning. This is now resolved but I do think this warrants further evaluation. I have hospitalist on page. CTA did come back showing no acute abnormality that would prevent her from staying here. Lab Data Attestation: I reviewed the patient's lab results. Labs: Laboratory Results - last 24 hr 10/10/23 10/10/23 10/10/23 18:16 18:20 18:30 WBC 5.2 RBC 4.65 Hgb 12.9 Hct 41.1 MCV 88.4 MCH 27.7 MCHC 31.4 L RDW Std Deviation 43.7 RDW Coeff of Obed 13.5 Plt Count 200 MPV 10.7 Immature Gran % (Auto) 0.600 Neut % (Auto) 73.9 H Lymph % (Auto) 14.2 L [place] % (Auto) 9.6 Eos % (Auto) 0.4 Baso % (Auto) 1.3 H Absolute Neuts (auto) 3.9 Absolute Lymphs (auto) 0.74 L Nucleated RBC % 0 Sodium 138 Potassium 4.0 Chloride 109 H Carbon Dioxide 26.0 Anion Gap 3 L BUN 30 H Creatinine 0.82 Estim Creat Clear Calc 36.03 Est GFR (MDRD) Af Amer 85 Est GFR (MDRD) Non-Af 70 BUN/Creatinine Ratio 36.5 H Glucose 180 H Calcium 9.5 Troponin I High Sens 9 TSH 1.24 Urine Color Yellow Urine Clarity Clear Urine pH 6.5 Ur Specific [place] 1.015 Urine Protein 15 H Urine Glucose (UA) Normal Urine Ketones Negative Urine Occult Blood Negative Urine Nitrite Negative Urine Bilirubin Negative Urine Urobilinogen Normal Ur Leukocyte Esterase Negative Urine RBC 0 SEEN Urine WBC 0-5 SEEN Ur Squamous Epith Cells 0-5 SEEN Urine Bacteria 0 SEEN Urine Mucus 0 SEEN POC Glucose 231 H Radiography Diagnostic Testing: Clinical Impression(s) from Imaging Studies Brain CT 10/10/23 18:39 IMPRESSION: Mild periventricular white matter ischemic changes. No evidence for acute hemorrhage.. If concern for acute infarct MRI recommended. Electronically Signed: Scooby Horn MD at 19:34 EST , Chest X-Ray 10/10/23 19:10 IMPRESSION: ASHD. No acute cardiopulmonary pathology Electronically Signed: Scooby Horn MD at 19:37 EST , Head/Neck CTA 10/10/23 23:01 IMPRESSION: 1. No evidence of intracranial arterial flow-limiting stenosis, large vessel occlusion or aneurysm. 2. Atherosclerotic plaques of the bilateral carotid bifurcations and proximal internal carotid arteries with approximately 60% stenosis at the origin of the right ICA and less than 50% stenosis of the proximal left ICA. 3. Atherosclerotic plaque at the origin of the left vertebral artery with moderate stenosis. 4. Sclerotic changes and compression deformity of the C7 vertebral body, new as compared to 11/07/2020. This may represent a chronic compression fracture, however given the diffuse sclerotic changes of the vertebral body metastatic disease is difficult to exclude. Recommend follow-up with nonemergent MRI. Electronically Signed: Scooby Leal DO at 0:10 EST , Discharge Plan Dx/Rx/DC Orders Clinical Impression: Medication induced coagulopathy, History of diabetes mellitus, type II, Dysarthria, History of high cholesterol, Brain TIA, History of hypertension, History of atrial fibrillation Disposition Disposition: [facility] Discharge Date/Time: 10/11/23 00:01
[2023-10-10 18:57] LABS: Absolute Lymphocyte Count 0.74 X10^3/uL (0.83-4.51); Absolute Neutrophil Count 3.9 X10^3/uL (2.0-7.7); Basophil# 0.07 X10^3/uL; Basophil% 1.3 % (0-1); Eosinophil# 0.02 X10^3/uL; Eosinophils% 0.4 % (0-5); Hematocrit 41.1 % (37-47); Hemoglobin 12.9 g/dL (12.0-15.0); Lymphocyte # 0.74 X10^3/ul (0.83-4.51); Lymphocyte % 14.2 % (19-41); Mean Corp Hgb Conc 31.4 g/dL (32-36); Mean Corpuscular Hgb 27.7 pg (27.0-32.0); Mean Corpuscular Volume 88.4 fL (81-99); Mean Platelet Vol. 10.7 fl (6.2-12.0); Monocyte% 9.6 % (0-10); NRBC Flagged by Analyzer 0 % (0-5); Neutrophil # 3.86 X10^3/uL (2.7-7.7); Neutrophil % 73.9 % (47-70); Platelet Count 200 K/mm3 (150-450); RBC Distribution Width CV 13.5 % (11.6-14.6); RBC Distribution Width SD 43.7 fl (35.1-43.9); Red Blood Count 4.65 M/mm3 (4.2-5.4); White Blood Count 5.2 K/mm3 (4.4-11.0)
[2023-10-10] MEDS: 0.9% Normal Saline (500mL Bag) 500 ML 1000 ML IV (18:59)
--- NOTE | 2023-10-10 19:10 | RAD_ITS ---
STUDY: X-RAY CHEST REASON FOR EXAM: Female, 83 years old. Weakness TECHNIQUE: AP portable COMPARISON: August 20, 2023 FINDINGS: The lungs are clear and expanded. There is no demonstrated pleural abnormality. Heart is enlarged. Normal mediastinum and dave. Normal visualized pulmonary arteries. Diffuse calcification of the descending aorta.. Dorsal spine demonstrates scoliosis and degenerative changes. Normal visualized ribs, and ribs. Degenerative changes and shoulders. There is no demonstrated abnormality of the visualized soft tissue structures of the upper abdomen. RAD/Chest 1 View (Portable) IMPRESSION: ASHD. No acute cardiopulmonary pathology Electronically Signed: Scooby Horn MD at 19:37 EST ,
[2023-10-10 19:20] LABS: Anion Gap 3 (5-15); BUN 30 mg/dL (7-18); BUN/Creat Ratio 36.5 RATIO (10-20); Calcium,Total 9.5 mg/dL (8.5-10.1); Chloride 109 mmol/L (98-107); Creatinine, Serum 0.82 mg/dL (0.55-1.02); EST Glomerular Filtration Rate 70 mL/min (>60); Est Glom Filt Rate - Afr Amer 85 mL/min (>60); Estimated Creatinine Clearance 36.03 ml/min; Glucose 180 mg/dL (74-106); Sodium Level 138 mmol/L (136-145); Troponin-I HS 9 pg/mL (3.0-54.0)
[2023-10-10 19:31] LABS: Bacteria 0 SEEN /hpf (None Seen); Mucous, Urine 0 SEEN /hpf (<or=2+); Red Blood Cells-Urine 0 SEEN /hpf (0-5)
[2023-10-10 19:40] LABS: Color, Urine Yellow (Yellow); Glucose, Dipstick Normal (Normal); Ketone-Dipstick Negative (Negative); Leukocyte Esterase-Dipstick Negative /ul (Negative); Nitrite-Dipstick Negative (Negative); Occult Blood-Urine Negative /ul (Negative); Protein-Dipstick 15 mg/dl (Negative); Specific Gravity, Urine 1.015 (1.002-1.030); Urine Bilirubin Dipstick Negative (Negative); Urine Clarity Clear (Clear); Urine Urobilinogen Normal (Normal); Urine pH 6.5 (5.0 - 8.0)
[2023-10-10 19:52] LABS: Squamous Epithelial Cells - UA 0-5 SEEN /hpf (5-10); White Blood Cells 0-5 SEEN /hpf (0-5)
--- NOTE | 2023-10-10 22:56 | PCM.HP.STD ---
HPI - General General Date of Admission: 10/10/23 Date of Service: 10/10/23 Chief Complaint: Slurred speech and weakness HPI Narrative ELLEN REDMAN, is a 83 F with a past medical history of essential hypertension, hyperlipidemia, hypothyroidism; after history of thyroidectomy, diabetes mellitus type 2 unknown control, history of paroxysmal atrial fibrillation; on apixaban and diltiazem, history of congestive heart failure (of unspecified type), history of right-sided carotid artery stenosis; with right carotid bruit, depression with anxiety, history of breast cancer; status postlumpectomy of the left breast, history of skin cancer, history of avascular necrosis of the Right hip; status post right total hip replacement and osteoarthritis; with chronic pain who presents to [facility] ER complaining of slurred speech and weakness. Ms. Redman reports her symptoms began when she woke up this morning feeling confused and had trouble making sense of what to do and she admits to difficulty getting dressed. She admits dropping her coffee this morning and he noticed her voice was different than previous though her words were correct. Thankfully, shortly after arrival her symptoms resolved completely with a CT scan of the head that was negative for acute pathologic changes. Notably, she is not on any antiplatelet therapy with a baby aspirin or Plavix at the time of admission. The teleneurologist from [facility] recommended a full work-up for her apparent TIA with MRI of the brain, carotid duplex and echocardiogram to complete her evaluation. She denies associated fever, chills, nausea or vomiting. In the ER she was diagnosed with suspected TIA causing transient slurred speech and dysphonia with confusion resolved complicated by laboratory evidence of acute dehydration (with BUN/creatinine ratio greater than 20:1) with a creatinine of 0.82 mg/dL and a BUN of 30 mg/dL present on admission and she was then admitted to the CDU under observation status for a stay that is expected to be less than 48 hours. 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 Depression Diabetes mellitus, type II Dietary restriction Dizziness Easy bruising Essential hypertension Essential hypertension Heartburn High cholesterol History of CHF (congestive heart failure) History of echocardiogram History of edema History of irregular heartbeat History of pain when walking History of renal disease History of steroid therapy History of stress test Hyponatremia with extracellular fluid depletion Hypothyroidism Injury of head and neck Irregular heart beat Leg cramps Loss of hearing Osteoporosis Pain Paroxysmal atrial fibrillation Pneumonia Shortness of breath on exertion Syncope Thyroid disease Transaminitis Uses wheelchair Valvular heart disease Vitamin D deficiency Wears glasses Wears partial dentures Home Medications Synthroid 88 mcg tablet (levothyroxine) 88 mcg PO DAILY THYROID #90 tabs 07/16/20 [Rx Last Taken 10/10/23] rosuvastatin 5 mg tablet 5 mg PO DAILY CHOLSTEROL 10/21/20 [History Last Taken 12/19/22] folic acid 1 mg tablet 1 mg PO DAILY Supplement 04/15/22 [History Last Taken 10/10/23] cholecalciferol (vitamin D3) 25 mcg (1,000 unit) tablet 25 mcg PO DAILY SUPPLEMENT 02/02/23 [History Last Taken 10/10/23] citalopram 20 mg tablet 10 mg PO DAILY DEPRESSION 02/02/23 [History Last Taken 10/10/23] insulin glargine 100 unit/mL (3 mL) subcutaneous pen (Lantus Solostar U-100 Insulin) 8 unit subcut DAILY Diabetes 02/02/23 [History Last Taken Unknown] insulin lispro 100 unit/mL subcutaneous pen (Humalog KwikPen (U-100) Insulin) 2 unit subcut TID DM 02/02/23 [History Last Taken 10/11/23] tramadol 50 mg tablet 50 mg PO TID PRN pain 02/02/23 [History Last Taken Unknown] losartan 100 mg tablet 100 mg PO DAILY BLOOD PRESSURE #90 tabs 02/10/23 [Rx Last Taken Unknown] apixaban 2.5 mg tablet 2.5 mg PO BID BLOOD THINNER #60 tabs 02/18/23 [Rx Last Taken 08/20/23 17:00] linagliptin 5 mg tablet 5 mg PO DAILY DIABETES 05/20/23 [History Last Taken 10/10/23] diltiazem HCl 120 mg capsule,extended release 24 hr 120 mg PO DAILY #30 caps 08/20/23 [Rx Last Taken Unknown] nystatin 100,000 unit/gram topical powder (Nyamyc) 1 applic topical BID PRN rash 09/14/23 [History Last Taken Unknown] sennosides 8.6 mg-docusate sodium 50 mg tablet (Stool Softener-Stimulant Laxative) 2 tab PO DAILY PRN CONSTIPATION 09/14/23 [History Last Taken 10/10/23] Allergy/AdvReac Type Severity Reaction Status Date / Time metformin Allergy Severe Rash Verified 10/11/23 01:40 neomycin [Neomycin] Allergy Severe Unknown Verified 10/11/23 01:40 Tetracyclines Allergy Severe Anaphylaxis Verified 10/11/23 01:40 Sulfa (Sulfonamide Allergy Constipatio Verified 10/11/23 01:40 Antibiotics) n metoprolol AdvReac Intermediate Bradycardia Verified 10/11/23 01:40 flecainide AdvReac bradycardia Verified 10/11/23 01:40 in combo with Metoprolol Family History Mother Thyroid disorder Father Alzheimer disease Surgical History History of cardiac catheterization History of foot surgery History of left heart catheterization (12/28/14) History of lumpectomy of left breast (~12/2022) History of right hip replacement History of thyroidectomy History of tonsillectomy and adenoidectomy Hx of colonoscopy S/P breast biopsy, left (~10/2022) S/P total right hip arthroplasty Social History household members: none Smoking Status: Former smoker how long ago did patient quit smokin years ago alcohol intake: current alcohol intake frequency: a few times a month Alcohol type: wine substance use type: does not use caffeine: Yes Type: coffee Number of servings: 2 ROS ROS Narrative Review of systems: Constitution: Patient denies fevers or chills she also denies recent illness Eyes: Patient denies vision changes or discharge ENT: Patient denies runny nose or sore throat Cardiovascular: Patient denies chest pain or palpitations Respiratory: Patient denies shortness of breath or cough Gastrointestinal: No abdominal pain, nausea, vomiting or diarrhea Genitourinary: Patient denies dysuria or urinary frequency Musculoskeletal: Patient denies recent trauma or significant pain Integumentary: Patient denies rash and is not diaphoretic Neuro exam: Patient admits to slurred speech and confusion earlier today that have now completely resolved Endocrine: Patient denies polyuria or polydipsia 14 point review of systems otherwise negative except for positives noted above in HPI. Vital Signs Vital Signs Vital Signs: 10/10/23 18:07 10/10/23 18:23 10/10/23 19:29 Temperature 97.6 F L Temperature Source Temporal Pulse Rate 97 106 H 107 H Respiratory Rate 18 17 20 H Blood Pressure 154/72 H 147/87 H 135/109 H Blood Pressure Mean 99 107 117 Pulse Ox 96 94 96 Oxygen Delivery Method Room Air Room Air Room Air 10/10/23 20:00 10/10/23 21:00 10/10/23 22:00 Temperature Temperature Source Pulse Rate 119 H 121 H 123 H Respiratory Rate 14 17 17 Blood Pressure 165/74 H 160/81 H 170/87 H Blood Pressure Mean 104 107 114 Pulse Ox 97 96 94 Oxygen Delivery Method Room Air Room Air Room Air Weight Weight: 116 lb 6.465 oz Body Mass Index (BMI) 22.7 Physical Exam Const alert, oriented x3, no apparent distress and average body habitus Constitutional Narrative: Patient appears thin and cachectic with an anxious affect. General Appearance: cooperative HEENT normocephalic, head/scalp atraumatic and hearing grossly normal bilaterally HEENT Narrative: Oral mucosa is extremely dry. Patient has purplish bruising around the medial surface of her right orbit. Eyes PERRL, EOMs intact bilaterally and conjunctivae normal Neck no lymphadenopathy, supple and no JVD Neck Narrative: Right carotid bruit present. Resp normal respiratory effort, no retractions, no use of accessory muscles and clear to auscultation bilaterally Cardio regular rate and regular rhythm GI normal to inspection, nondistended, normoactive bowel sounds, soft to palpation, non-tender and non-distended Extremity normal to inspection, full ROM and no clubbing, cyanosis or edema Neuro oriented x3, CN's II-XII intact bilaterally, moves all extremities and no focal motor deficits Sensorium / Orientation: awake, alert, oriented to person, oriented to place and oriented to time Coordination / Balance: [id number] test normal and [id number] test normal Speech: speech normal Motor Exam: strength 5/5 throughout Psych Mood & Affect: anxious Results Medical Records Data Attestation: I reviewed the patient's medical records Lab / Micro Data Attestation: I reviewed the patient's lab results. Lab results narrative: [facility] [place] [address] Brain/Head without Contrast MR#: [id number] Acct: [id number] Name: ELLEN REDMAN Rep #: [id number] : [id number] F 83 From: Scooby Horn MD PCP: Dr. Karla Bhagat MD Status: REG ER Study: Brain/Head without Contrast Date of Exam: 10/10/23 Exam# [id number] Ordering Dr: Jeyson Mike MD STUDY: CT BRAIN WITHOUT CONTRAST REASON FOR EXAM: Female, 83 years old. Weakness and speech difficulties RADIATION DOSAGE (If Supplied By Facility): CTDIvol = ( 29.71 ) mGy, DLP = ( 560.09 ) mGycm TECHNIQUE: Transaxial CT imaging of the brain was performed without administration of intravenous contrast material. Individualized dose optimization techniques were used for this CT. COMPARISON: July 22, 2023 FINDINGS: Normal soft tissue structures. Normal calvarium. Calcification of cavernous carotids Normal size ventricles and extra-axial spaces for the patient''s age. Mild periventricular white matter ischemic changes. Normal basal ganglia and thalami. Normal brainstem. Normal cerebellum. There is no intracranial hemorrhage. There are no findings of an acute ischemic infarction. Normal visualized paranasal sinuses. Postsurgical changes of the orbits CT/Brain/Head without Contrast IMPRESSION: Mild periventricular white matter ischemic changes. No evidence for acute hemorrhage.. If concern for acute infarct MRI recommended. Electronically Signed: Scooby Horn MD at 19:34 EST , CC: Dr. Karla Bhagat MD; Dr. Jeyson Mike MD ~ Automation And Controls Manager: Signed [facility] [address] [place] [id number] Chest 1 View (Portable) MR#: [id number] Acct: [id number] Name: ELLEN REDMAN Rep #: [id number] : 1940 F 83 From: Scooby Horn MD PCP: Dr. Karla Bhagat MD Status: REG ER Study: Chest 1 View (Portable) Date of Exam: 10/10/23 Exam# [id number] Ordering Dr: Jeyson Mike MD STUDY: X-RAY CHEST REASON FOR EXAM: Female, 83 years old. Weakness TECHNIQUE: AP portable COMPARISON: August 20, 2023 FINDINGS: The lungs are clear and expanded. There is no demonstrated pleural abnormality. Heart is enlarged. Normal mediastinum and dave. Normal visualized pulmonary arteries. Diffuse calcification of the descending aorta.. Dorsal spine demonstrates scoliosis and degenerative changes. Normal visualized ribs, and ribs. Degenerative changes and shoulders. There is no demonstrated abnormality of the visualized soft tissue structures of the upper abdomen. RAD/Chest 1 View (Portable) IMPRESSION: ASHD. No acute cardiopulmonary pathology Electronically Signed: Scooby Horn MD at 19:37 EST Reading Location ID and State: [facility] / [place] Tel , Service support , CC: Dr. Karla Bhagat MD; Dr. Jeyson Mike MD ~ Automation And Controls Manager: Signed 10/10/23 18:30 10/10/23 18:30 Labs: Laboratory Results - last 24 hr 10/10/23 18:16: POC Glucose 231 H 10/10/23 18:20: Urine Color Yellow, Urine Clarity Clear, Urine pH 6.5, Ur Specific Perry 1.015, Urine Protein 15 H, Urine Glucose (UA) Normal, Urine Ketones Negative, Urine Occult Blood Negative, Urine Nitrite Negative, Urine Bilirubin Negative, Urine Urobilinogen Normal, Ur Leukocyte Esterase Negative, Urine RBC 0 SEEN, Urine WBC 0-5 SEEN, Ur Squamous Epith Cells 0-5 SEEN, Urine Bacteria 0 SEEN, Urine Mucus 0 SEEN 10/10/23 18:30: WBC 5.2, RBC 4.65, Hgb 12.9, Hct 41.1, MCV 88.4, MCH 27.7, MCHC 31.4 L, RDW Std Deviation 43.7, RDW Coeff of Obed 13.5, Plt Count 200, MPV 10.7, Immature Gran % (Auto) 0.600, Neut % (Auto) 73.9 H, Lymph % (Auto) 14.2 L, [place] % (Auto) 9.6, Eos % (Auto) 0.4, Baso % (Auto) 1.3 H, Absolute Neuts (auto) 3.9, Absolute Lymphs (auto) 0.74 L, Nucleated RBC % 0, Sodium 138, Potassium 4.0, Chloride 109 H, Carbon Dioxide 26.0, Anion Gap 3 L, BUN 30 H, Creatinine 0.82, Estim Creat Clear Calc 36.03, Est GFR (MDRD) Af Amer 85, Est GFR (MDRD) Non-Af 70, BUN/Creatinine Ratio 36.5 H, Glucose 180 H, Calcium 9.5, Troponin I High Sens [address] 10/10/23 18:39 IMPRESSION: Mild periventricular white matter ischemic changes. No evidence for acute hemorrhage.. If concern for acute infarct MRI recommended. Electronically Signed: Scooby Horn MD at 19:34 EST , Chest X-Ray 10/10/23 19:10 IMPRESSION: ASHD. No acute cardiopulmonary pathology Electronically Signed: Scooby Horn MD at 19:37 EST , Assessment & Plan Assessment/Plan (1) TIA (transient ischemic attack): (2) Carotid stenosis, bilateral: (3) Paroxysmal atrial fibrillation: PLAN: Plan 1. TIA with transient slurred speech and confusion that have now completely resolved - Admit to CDU under observation status. Proceed with stroke work-up including MRI of the brain, carotid duplex and echocardiogram to evaluate left ventricular ejection fraction. Start a baby aspirin 81 mg daily and continue statin. 2. Known history of carotid stenosis bilaterally with right carotid bruit present on exam this admission likely causing #1 - Proceed with carotid duplex imaging to confirm suspicion of stenosis. 3. Paroxysmal atrial fibrillation; already on apixaban and diltiazem - Continue home medications as previous. 4. Laboratory evidence of dehydration with creatinine of 0.82 mg/dL and BUN of 30 mg/dL complicating #1 - #3 - Give gentle volume resuscitation and then recheck BMP in the a.m. to ensure improvement. 5. Essential hypertension - Allow for permissive hypertension until CVA can be definitively ruled out on MRI. 6. Hyperlipidemia - Continue statin and check lipid profile this admission. 7. Diabetes mellitus type 2; of unknown control - ADA diet. Fingerstick blood sugars before every meal and at bedtime plus sliding scale insulin. Check hemoglobin A1c to assess quality of diabetic control. 8. DVT prophylaxis - Patient is already on apixaban which will be continued. Total time: Approximately 45 minutes. Charges/Coding Visit Charges OBSV E&M: 30314 Observ/hosp same date L1
--- NOTE | 2023-10-10 23:01 | CT_ITS ---
INDICATION: TIA EXAMINATION: CT HEAD AND NECK WITH CONTRAST - CTA Head and Neck Stroke W/ Contrast (and W/O if performed) TECHNIQUE: Routine carotid CT angiogram protocol was performed with IV contrast. In addition, images were obtained of the [place]. Sagittal and coronal reconstructed images and 3D reconstructions were reviewed. Individualized dose optimization techniques were used for this CT. IV contrast dosage and agent: 100 mL of Isovue-370. COMPARISON: Noncontrast head CT from earlier same day and CTA from 11/07/2020. FINDINGS: --CTA HEAD: No evidence of arterial flow limiting stenosis. No evidence of large vessel occlusion. No aneurysm. origin of the right TITLE COORDINATOR. --CTA NECK: Compression deformity and sclerotic changes of the C7 vertebral body, new as compared to 11/07/2020. AORTIC ARCH AND BRANCHES: No significant stenosis of the visualized portions. RIGHT CCA: Atherosclerotic plaque at the carotid bifurcation with moderate stenosis. No dissection. RIGHT ICA: Atherosclerotic plaque at the origin of the ICA with approximately 60% stenosis. No dissection. LEFT CCA: Atherosclerotic plaque at the carotid bifurcation with no significant stenosis. No dissection. LEFT ICA: Atherosclerotic plaque of the proximal ICA with less than 50% stenosis. No dissection. RIGHT VERTEBRAL ARTERY: No significant stenosis. No dissection. LEFT VERTEBRAL ARTERY: Atherosclerotic plaque of the origin of the vertebral artery with moderate stenosis. No dissection. NECK SOFT TISSUES: Unremarkable. CT/CTA Head AND Neck W/ Contrast IMPRESSION: 1. No evidence of intracranial arterial flow-limiting stenosis, large vessel occlusion or aneurysm. 2. Atherosclerotic plaques of the bilateral carotid bifurcations and proximal internal carotid arteries with approximately 60% stenosis at the origin of the right ICA and less than 50% stenosis of the proximal left ICA. 3. Atherosclerotic plaque at the origin of the left vertebral artery with moderate stenosis. 4. Sclerotic changes and compression deformity of the C7 vertebral body, new as compared to 11/07/2020. This may represent a chronic compression fracture, however given the diffuse sclerotic changes of the vertebral body metastatic disease is difficult to exclude. Recommend follow-up with nonemergent MRI. Electronically Signed: Scooby Leal DO at 0:10 EST ,
[2023-10-10] MEDS: dilTIAZem 60 MG CAP.SR.12H PO (23:17)
--- NOTE | 2023-10-10 23:23 | CDU_ITS ---
Reason For Study: TIA Rt. Velocities/BP Lt. Velocities/BP Prox CCA 57.9/9.7 cm/sec. Prox CCA 136.8/13.8 cm/sec. Mid CCA 73/10.7 cm/sec. Mid CCA 123.6/13.8 cm/sec. Dist CCA 86.3/11.6 cm/sec. Dist CCA 121.4/13.8 cm/sec. Prox ICA 240.2/30.1 cm/sec. Prox ICA 114.8/22.6 cm/sec. Mid ICA 141.2/13.3 cm/sec. Mid ICA 67.9/17.6 cm/sec. Dist ICA 91.9/20.6 cm/sec. Dist ICA 85.1/23.7 cm/sec. Rt. ICA/CCA = 3.29. Lt. ICA/CCA = 0.93. Prox ECA 248.3 cm/sec. Prox ECA 139 cm/sec. Rt. Vert. 66.3 cm/sec. Lt. Vert. 60.5/11.4 cm/sec. Right Extracranial There is homogeneous, smooth atherosclerotic plaque noted in the right common carotid artery. There is heterogeneous, irregular atherosclerotic plaque noted in the right internal carotid artery. There is heterogeneous, irregular atherosclerotic plaque noted in the right external carotid artery. Antegrade flow is noted in the right vertebral artery. Left Extracranial There is homogeneous, smooth atherosclerotic plaque noted in the left common carotid artery. There is heterogeneous, irregular atherosclerotic plaque noted in the left internal carotid artery. There is heterogeneous, irregular atherosclerotic plaque noted in the left external carotid artery. Antegrade flow is noted in the left vertebral artery. Procedure Carotid Duplex 75118. This is a Carotid Duplex examination using B-mode, color flow and specral Doppler. Exam performed portable in patient room. VL/Carotid Duplex Ultrasound Interpretation Summary Irregular plaque with shadowing at the proximal right internal carotid artery w ith greater than 70% stenosis. Greater than 50% stenosis right external carotid artery Irregular plaque at the proximal left internal carotid artery with less than 50 % stenosis Less than 50% stenosis left external carotid artery Patent antegrade vertebral arteries bilaterally Her previous examination of September 23, 2020 suggested greater than 70% stenosi s of the right internal carotid and greater than 50% stenosis of the right external carotid an d 50 to 69% stenosis of the left internal carotid and greater than 50% stenosis of the left external carotid Ordering Physician: Titi Sanderson Referring Physician: Karla Bhagat M.D. Performed By: Jess Keith RVT
--- NOTE | 2023-10-10 23:26 | ECHOD_ITS ---
Reason For Study: TIA/STROKE Procedure This was a 2D Doppler, Color Flow transthoracic echocardiogram. Technically difficult study due to patient body habitus. Patient scanned supine. Exam performed portable in patient room. Left Ventricle Moderate eccentric left ventricular hypertrophy. The estimated ejection fraction is 50-55 %. Right Ventricle Normal right ventricle. Normal systolic function. Atria The left atrium is mildly enlarged. The right atrium is mildly enlarged. Bubble contrast study is negative for PFO/ASD. Mitral Valve There is moderate mitral annular calcification. Trivial mitral valve insufficiency. Tricuspid Valve Normal tricuspid valve. Trivial tricuspid valve insufficiency. Aortic Valve Mild diffuse aortic valve calcification. Pulmonic Valve The pulmonic valve is not well visualized. Great Vessels Normal aortic root. Pericardium/Pleural Small pericardial effusion. MMode/2D Measurements & Calculations LVIDd: 3.5 cm IVSd: 1.2 cm Ao root diam: 2.3 cm LVIDs: 2.7 cm LVPWd: 1.5 cm FS: 25.0 % LAV(MOD-bp): 73.2 ml LVAd ap4: 20.0 cm2 SV(MOD-sp4): 26.8 ml LAV(MOD-bp) Indexed: 52.7 ml/m2 LVLd ap4: 6.1 cm LAV(MOD-sp2): 114.9 ml EDV(MOD-sp4): 54.0 ml LAV(MOD-sp4): 42.1 ml EDV(sp4-el): 56.2 ml LVAs ap4: 12.9 cm2 LVLs ap4: 5.0 cm ESV(MOD-sp4): 27.2 ml ESV(sp4-el): 28.2 ml EF(MOD-sp4): 49.7 % EF(sp4-el): 49.8 % SV(sp4-el): 28.0 ml LA A4 area: 16.8 cm2 LA dimension(2D): 3.6 cm RA A4 area: 16.0 cm2 Doppler Measurements & Calculations MV E max svetlana: 120.0 cm/sec MV P1/2t max svetlana: 120.3 cm/sec Ao V2 max: 109.7 cm/sec MV P1/2t: 25.7 msec Ao max P.8 mmHg Ao V2 mean: 82.7 cm/sec MV dec slope: 1373 cm/sec2 Ao mean P.0 mmHg MVA(P1/2t): 8.6 cm2 Ao V2 VTI: 17.3 cm AV (velocity ratio): 1.1 LV V1 max: 105.3 cm/sec PA V2 max: 102.2 cm/sec LV V1 max P.4 mmHg PA V2 mean: 69.1 cm/sec LV V1 mean P.5 mmHg LV V1 mean: 73.6 cm/sec LV V1 VTI: 19.0 cm ECHO/Echo Complete Interpretation Summary The estimated ejection fraction is 50-55 %. Negative bubble study with no evidence of intracardiac shunt No intracardiac thrombus demonstrated. Ordering Physician: Titi Sanderson Referring Physician: Karla Bhagat M.D. Performed By: Roseline Mott RCS
[2023-10-11] VITALS (12 sets, daily range): BP systolic 131–182; BP diastolic 70–102; PULSE 77–125; RESP 15–18; TEMP 36.7–37.2; O2SAT 92–97; BMI 19.6
[2023-10-11 00:11] LABS: Thyroid Stim Hormone (TSH) 1.24 uIU/mL (0.358-3.74)
--- NOTE | 2023-10-11 01:20 | EKG12_ITS ---
Test Reason : Blood Pressure : / mmHG Vent. Rate : 117 BPM Atrial Rate : 000 BPM P-R Int : 000 ms QRS Dur : 082 ms QT Int : 350 ms P-R-T Axes : 000 -39 -72 degrees QTc Int : 488 ms Atrial fibrillation with rapid ventricular response Left axis deviation Septal infarct , age undetermined Abnormal ECG When compared with ECG of 10-OCT-2023 22:37, MANUAL COMPARISON REQUIRED, DATA IS UNCONFIRMED Confirmed by NIDHI JOLLY, LAINE ([id number]), advertising editor CELESTE RODRIGUEZ ([id number]) on 10/20/2023 12:48:50 PM Referred By: Confirmed By:LAINE TERRELL MD
[2023-10-11] MEDS: 0.9% Saline Lock 10 ML Syringe IV (01:53)
[2023-10-11] MEDS: 0.9% Normal Saline (1000mL) 1,000 ML 100 ML IV (02:03)
[2023-10-11] MEDS: Morphine 2 MG/ML Syringe 1 MG IV (02:48)
[2023-10-11] MEDS: dilTIAZem CD 120 MG Capsule PO (02:56)
[2023-10-11 06:48] LABS: Cholesterol 204 mg/dL (200); High Density Lipoprotein 87 mg/dL; Triglycerides 62 mg/dL; Very Low Density Lipoprotein 12 mg/dL (5-40)
[2023-10-11] MEDS: Cholecalciferol (VIT D3) 25 MCG TABLET (1,000 UNITS) PO (08:27)
[2023-10-11] MEDS: Senna/Docusate Sodium 1 Tablet 2 TABLET PO (08:27)
[2023-10-11] MEDS: Insulin Glargine-YFGN 100 UNIT/ML Pen SC (08:27)
[2023-10-11] MEDS: APIXABAN 2.5 MG TABLET (WCH) PO ×2 (08:27→20:31)
[2023-10-11] MEDS: LINAGLIPTIN 5 MG TABLET PO (08:27)
[2023-10-11] MEDS: Citalopram 10 MG Tablet PO (08:27)
[2023-10-11] MEDS: Folic Acid 1 MG Tablet PO (08:27)
[2023-10-11] MEDS: Aspirin 81 MG TAB.CHEW PO (08:27)
[2023-10-11] MEDS: Insulin Lispro 100 UNIT/ML INSULN.PEN SC ×3 (08:28→17:03)
[2023-10-11 09:10] LABS: Bedside Glucose 145 mg/dL (74-106)
--- NOTE | 2023-10-11 09:30 | MRI_ITS ---
EXAM: MR HEAD WITHOUT INTRAVENOUS CONTRAST CLINICAL INDICATION: TIA with transient slurred speech and confusion TECHNIQUE: Multiplanar and multisequence MR images of the brain were obtained without intravenous contrast. COMPARISON: No relevant prior studies available. FINDINGS: BRAIN AND EXTRA-AXIAL SPACES: Multiple small foci of restricted diffusion noted within the left cerebral hemisphere involving the peripheral portion of the left frontal, temporal and parietal lobes consistent with acute ischemic change. There is also a small focus of restricted diffusion within the left caudate nucleus. Increased T2 signal intensity within the cerebral white matter suggestive of chronic microvascular change. No intra- or extra-axial hemorrhage. No intracranial mass or mass effect. There is preservation of the gilmore/white matter interface. Posterior fossa structures are unremarkable. Ventricles are appropriate for age. No hydrocephalus. Basal cisterns are patent. SELLA: Normal. Normal sella turcica, pituitary gland, infundibular stalk, optic chiasm and hypothalamus. AUDITORY SYSTEM: Normal. The internal auditory canals are patent. BONES/JOINTS: Intact calvarium. SINUSES: Unremarkable as visualized. Clear. MASTOID AIR CELLS: Unremarkable as visualized. Clear. ORBITS: Unremarkable as visualized. Both globes, extraocular muscles, optic nerves and retrobulbar fat appear unremarkable. VASCULATURE: Unremarkable as visualized. Normal flow voids in the major intracranial circulation. MRI/Brain without Contrast IMPRESSION: 1. Multiple small focal areas of acute ischemic change left cerebral hemisphere which may represent thromboembolic phenomenon. 2. Chronic microvascular changes. N.B. : The above Results were Read Back by Warner Monsivais MD to Abbie Pederson OT, and understanding confirmed on 10/11/2023 10:30:49 (ET). Electronically Signed: Warner Monsivais MD at 10:30 EST ,
[2023-10-11 12:09] LABS: Bedside Glucose 257 mg/dL (74-106)
--- NOTE | 2023-10-11 15:02 | CASEMGMT ---
SW completed a PHQ 9 with patient as she may have had a Stroke. Patient scored a 1 which indicates minimal depression. Patient declined any need for counseling resources. Kareen RED
--- NOTE | 2023-10-11 15:04 | CASEMGMT ---
Patient said she has a caregiver who is available most of the time to take her places. Patient said occasionally her caregiver is not available. Patient said she would like to find another caregiver so she has a back up. SW provided patient with a list of private duty agencies. Kareen RED
--- NOTE | 2023-10-11 15:50 | CHAPLAIN ---
Type of Pastoral Visit ___ Initial Visit ___ Follow-up Visit ___ On-call Visit ___ General Patient Visit ___ Spiritual Assessment ___ Family Conference ___ Bereavement ___ Rapid Response ___ Code Blue ___ Other (describe below) Pastoral Care Referral From ___ Patient ___ Family ___ Nurse ___ Physician ___ Machine Biller ___ Care Manager Cna ___ Other (describe below) Sacrament/Intervention ___ Active listening ___ Anointing ___ Muslim ___ Bereavement ___ Communion ___ Emilie exploration ___ ___ Life review ___ Prayer ___ Reconciliation ___ Sacrament of Sick ___ Supportive presence ___ Wedding ___ Other (describe below) Pastoral Comments patient having tests at time of attempted visit
--- NOTE | 2023-10-11 16:43 | PN.HOSP_ITS ---
Reason for Visit Reason for Visit: Diagnoses Transient cerebral ischemic attack, unspecified (10/11/23) Paroxysmal atrial fibrillation (10/11/23) Occlusion and stenosis of bilateral carotid arteries (10/11/23) Subjective Subjective Patient seen at bedside this morning. Sitting comfortably in bed, conversing normally, no acute distress. Patient just returned from having the MRI of her brain done when I saw her, states she tolerated this without issue. States she had slurred speech and right hand weakness at home yesterday that caused her to come into the ED for further evaluation. Her symptoms have resolved prior to arrival to the ED. Lives on her own, is very functional at baseline. States she never had symptoms like that before. She currently denies any acute pain or discomfort. Denies any weakness or numbness/tingling in her extremities. No other acute concerns at this time. Objective Data Objective Data Vital Signs: Vital Signs Temp Pulse Resp BP Pulse Ox O2 Del Method 98.8 F 103 H 18 132/73 H 97 Room Air 10/11/23 14:45 10/11/23 14:45 10/11/23 14:45 10/11/23 14:45 10/11/23 14:45 10/11/23 14:45 Oxygen Delivery Method Room Air Weight: 45.6 kg Body Mass Index (BMI) 19.6 Intake & Output: Intake and Output for Last 24 Hours 10/09/23 10/10/23 10/11/23 23:59 23:59 23:59 Intake Total 500 / 500 995 / 995 Output Total 1350 / 1350 Balance 500 / 500 -355 / -355 Medical Nutrition Assessment Dietitian: Malnutrition Criteria Met Start: 10/11/23 11:58 Freq: Status: Active Protocol: Document 10/11/23 11:58 RMA (Rec: 10/11/23 11:58 RMA [id number]) Nutrition Malnutrition Evidence of Malnutrition Exists Yes Malnutrition (severe): Chronic Evidenced By Suboptimal Energy Intake ( Severe),Weight Loss (Severe) Clinical Problem Chronic Disease or Condition Related Malnutrition Etiology Severe protein-calorie malnutrition in the context of chronic disease and debility related to inadequate oral intake Signs/Symptoms as evidenced by PO meeting less than 50% estimated nutrition needs x past 3-6 months, BMI 19.6, calculated weight loss ~9% in less than 6 month period Status Active Problem Recommendation Dietitian Recommendations/Changes Will adjust diet to 1600 calorie/consistent carbohydrate. Will add 240mL chocolate glucerna shake w/ lunch tray. Will d/c glucerna shake w/ medpass. Additional ONS as needed once PO better established with meals. Lab / Micro Data 10/10/23 18:30 10/10/23 18:30 Labs: Laboratory Results - last 24 hr 10/10/23 18:16: POC Glucose 231 H 10/10/23 18:20: Urine Color Yellow, Urine Clarity Clear, Urine pH 6.5, Ur Specific [place] 1.015, Urine Protein 15 H, Urine Glucose (UA) Normal, Urine Ketones Negative, Urine Occult Blood Negative, Urine Nitrite Negative, Urine Bilirubin Negative, Urine Urobilinogen Normal, Ur Leukocyte Esterase Negative, Urine RBC 0 SEEN, Urine WBC 0-5 SEEN, Ur Squamous Epith Cells 0-5 SEEN, Urine Bacteria 0 SEEN, Urine Mucus 0 SEEN 10/10/23 18:30: WBC 5.2, RBC 4.65, Hgb 12.9, Hct 41.1, MCV 88.4, MCH 27.7, MCHC 31.4 L, RDW Std Deviation 43.7, RDW Coeff of Obed 13.5, Plt Count 200, MPV 10.7, Immature Gran % (Auto) 0.600, Neut % (Auto) 73.9 H, Lymph % (Auto) 14.2 L, Merrick % (Auto) 9.6, Eos % (Auto) 0.4, Baso % (Auto) 1.3 H, Absolute Neuts (auto) 3.9, Absolute Lymphs (auto) 0.74 L, Nucleated RBC % 0, Sodium 138, Potassium 4.0, Chloride 109 H, Carbon Dioxide 26.0, Anion Gap 3 L, BUN 30 H, Creatinine 0.82, Estim Creat Clear Calc 36.03, Est GFR (MDRD) Af Amer 85, Est GFR (MDRD) Non-Af 70, BUN/Creatinine Ratio 36.5 H, Glucose 180 H, Calcium 9.5, Troponin I High Sens 9, TSH 1.24 10/11/23 06:08: Triglycerides 62, Cholesterol 204 H, LDL Cholesterol 105, VLDL Cholesterol 12, HDL Cholesterol 87 10/11/23 08:19: POC Glucose 145 H 10/11/23 11:47: POC Glucose 257 H Radiography Diagnostic Testing: Radiology Impression Brain CT 10/10/23 18:39 IMPRESSION: Mild periventricular white matter ischemic changes. No evidence for acute hemorrhage.. If concern for acute infarct MRI recommended. Electronically Signed: Scooby Horn MD at 19:34 EST , Chest X-Ray 10/10/23 19:10 IMPRESSION: ASHD. No acute cardiopulmonary pathology Electronically Signed: Scooby Horn MD at 19:37 EST , Head/Neck CTA 10/10/23 23:01 IMPRESSION: 1. No evidence of intracranial arterial flow-limiting stenosis, large vessel occlusion or aneurysm. 2. Atherosclerotic plaques of the bilateral carotid bifurcations and proximal internal carotid arteries with approximately 60% stenosis at the origin of the right ICA and less than 50% stenosis of the proximal left ICA. 3. Atherosclerotic plaque at the origin of the left vertebral artery with moderate stenosis. 4. Sclerotic changes and compression deformity of the C7 vertebral body, new as compared to 11/07/2020. This may represent a chronic compression fracture, however given the diffuse sclerotic changes of the vertebral body metastatic disease is difficult to exclude. Recommend follow-up with nonemergent MRI. Electronically Signed: Scooby Leal DO at 0:10 EST , Carotid Duplex 10/10/23 23:23 Interpretation Summary Irregular plaque with shadowing at the proximal right internal carotid artery with greater than 70% stenosis. Greater than 50% stenosis right external carotid artery Irregular plaque at the proximal left internal carotid artery with less than 50% stenosis Less than 50% stenosis left external carotid artery Patent antegrade vertebral arteries bilaterally Her previous examination of September 23, 2020 suggested greater than 70% stenosis of the right internal carotid and greater than 50% stenosis of the right external carotid and 50 to 69% stenosis of the left internal carotid and greater than 50% stenosis of the left external carotid Ordering Physician: Titi Sanderson Referring Physician: Karla Bhagat M.D. Performed By: Jess Keith, RVT Brain MRI 10/11/23 09:30 IMPRESSION: 1. Multiple small focal areas of acute ischemic change left cerebral hemisphere which may represent thromboembolic phenomenon. 2. Chronic microvascular changes. N.B. : The above Results were Read Back by Warner Monsivais MD to Abbie Pederson OT, and understanding confirmed on 10/11/2023 10:30:49 (ET). Electronically Signed: Warner Monsivais MD at 10:30 EST , Physical Exam Const alert, oriented x3, no apparent distress, average body habitus, healthy appearing and well nourished General Appearance: cooperative, comfortable, well kempt and well developed HEENT normocephalic, head/scalp atraumatic, hearing grossly normal bilaterally, nasal mucous membranes and turbinates normal and moist oral mucous membranes Eyes PERRL, EOMs intact bilaterally and conjunctivae normal Neck full ROM, no lymphadenopathy and supple Lymph Lymphatic: no lymphadenopathy noted Chest inspection of chest normal Resp normal respiratory effort, normal air movement, no use of accessory muscles and clear to auscultation bilaterally Cardio regular rate, regular rhythm, no murmurs and peripheral pulses 2+ throughout GI normal to inspection, nondistended, normoactive bowel sounds, soft to palpation, non-tender and non-distended Back/Spine normal ROM Extremity normal to inspection, full ROM and no pedal edema Skin no rashes or lesions noted Neuro moves all extremities and no focal motor deficits Psych mental status grossly normal Assessment & Plan Assessment/Plan (1) Acute CVA (cerebrovascular accident): PLAN: Plan Patient is an 83-year-old female who presented [facility] ED on 10/10/2023 with episode of slurred speech and arm weakness at home concerning for stroke. 1. Acute CVA; History of bilateral carotid stenosis with right carotid bruit Presented with an episode of slurred speech and right arm/hand weakness that had resolved prior to arrival to ED. MRI brain without contrast on 10/11 showed multiple small focal areas of acute ischemic change left cerebral hemisphere that may represent thromboembolic phenomenon. CTA head/neck on admit showed atherosclerotic plaques of bilateral carotid bifurcations with 60% stenosis at origin of right ICA and less than 50% stenosis of proximal left ICA, otherwise no evidence of intracranial arterial flow-limiting stenosis or large vessel occlusion. Carotid duplex ultrasound on 10/11 showed irregular plaque with shadowing at proximal right ICA with greater than 70% stenosis, irregular plaque at proximal left internal carotid artery with less than 50% stenosis. Lipid panel fairly benign. ? Highest concern at this time is for thromboemboli originating from carotid artery disease, given imaging findings as above and that patient has been on Eliquis for stroke prophylaxis for paroxysmal atrial fibrillation. Teleneurology evaluated on admission, initiated patient on aspirin and statin in addition to home Eliquis. Appreciate further neurology recommendations on possible need for vascular intervention for carotid artery disease. TTE pending, will follow up. PT/OT/case management consulted. 2. Paroxysmal atrial fibrillation on Eliquis ? Stable, rate controlled on admission. Continue home Eliquis and diltiazem. Chronic medical conditions: ? Type 2 diabetes: Home regimen of Lantus 8 units daily, lispro 2 units 3 times daily AC, linagliptin 5 mg daily. Continue glargine 4 units daily, Humalog 2 units 3 times daily AC with sliding scale, adjust as needed. ? Hypothyroidism: Continue home Synthroid. ? Hypertension: Continue home losartan. ? Hyperlipidemia: Continue home statin. DVT prophylaxis: Eliquis CODE STATUS: DNR CCA, DO NOT INTUBATE Expected disposition: Home with home health care versus SNF, 1 to 2 days Total clinical time spent by myself addressing the patient's medical issues, reviewing all the data, and collaborating with patient's care team: 35 minutes. Charges/Coding Visit Charges Inpatient E&M: 65151 Subs Hosp L2
[2023-10-11 17:21] LABS: Bedside Glucose 232 mg/dL (74-106)
[2023-10-11] MEDS: Atorvastatin Calcium 40 MG Tablet PO (20:31)
[2023-10-11 22:45] LABS: Bedside Glucose 170 mg/dL (74-106)
[2023-10-12] VITALS (8 sets, daily range): BP systolic 127–170; BP diastolic 58–106; PULSE 86–108; RESP 16–18; TEMP 36.6–37; O2SAT 94–98; BMI 19.6
[2023-10-12] MEDS: Levothyroxine 88 MCG Tablet PO (06:05)
--- NOTE | 2023-10-12 06:21 | EKG12_ITS ---
Test Reason : NEURO Blood Pressure : / mmHG Vent. Rate : 097 BPM Atrial Rate : 000 BPM P-R Int : 000 ms QRS Dur : 084 ms QT Int : 390 ms P-R-T Axes : 000 -43 -66 degrees QTc Int : 495 ms Atrial fibrillation Left axis deviation Septal infarct , age undetermined ST & T wave abnormality, consider lateral ischemia Abnormal ECG Confirmed by NIDHI JOLLY, LAINE ([id number]), web content editor CELESTE RODRIGUEZ ([id number]) on 10/19/2023 2:14:04 PM Referred By: Confirmed By:LAINE TERRELL MD
--- NOTE | 2023-10-12 06:27 | PCM.HOSP.N ---
Hospitalist Note Patient with history of paroxysmal A-fib and developed A-fib with RVR early this morning. Heart rates have been anywhere from 100-130. Most recently sustaining closer to 130. Is on Cardizem 120 mg daily. We will continue this however I will give 1 dose of IV Cardizem 10 mg. Her blood pressure is elevated so she should tolerate this well. Continue Eliquis 2.5 mg daily.
[2023-10-12] MEDS: dilTIAZem 25 MG/5 ML Vial 10 MG IV BOLUS (06:31)
[2023-10-12] MEDS: 0.9% Saline Lock 10 ML Syringe IV (06:34)
[2023-10-12 08:18] LABS: Bedside Glucose 171 mg/dL (74-106)
--- NOTE | 2023-10-12 08:33 | EX.PCM.CON.S ---
Assessment & Plan Assessment/Plan (1) Acute CVA (cerebrovascular accident): PLAN: Head and neck CTA was reviewed with Dr. Ricks, left ICA stenosis 45% and right ICA stenosis 64% by NASCET. Brain MRI revealed left-sided CVA. Left ICA stenosis of 45% is below the threshold for surgical intervention even if potentially symptomatic. Right ICA is asymptomatic and so also below the threshold for surgical intervention. Recommend maximizing medical therapy with the addition of aspirin 81 mg daily and increasing from a moderate intensity 5 mg to a high intensity 20 mg dose of Crestor daily. As she has not been following with [facility] due to distance, patient indicates preference to follow-up with our office. We will coordinate outpatient follow-up in the next couple of weeks to establish outpatient care and coordinate follow-up imaging. HPI Consult Data Date of Consult: 10/12/23 HPI Narrative HPI Narrative: ELLEN ESTRADA, is a 83 F who presented to the [facility] ER with complaint of slurred speech, confusion, and weakness. She lives alone and when she woke up yesterday feeling like she was confused, kept dropping things, and wasn't talking right. She knows her right arm was weak because she is right-handed and kept dropping her coffee. She does not think her left arm was weak, but isn't sure because she doesn't use it as much. She did not note any weakness in her legs. She is not sure how long she felt this way prior to arriving in the ER, but once she was in the ER she said her symptoms started to improve. She now feels her symptoms are fully resolved. She denies any prior history of stroke or mini stroke. She does have a history of Afib for which she is anticoagulated with Eliquis 2.5mg daily which she has been taking as prescribed. She has previously followed with Dr. Ford at [facility] for her carotid artery stenosis, but admits due to the distance it has been a couple years since she has followed up there. She has not had any prior vascular surgical intervention. She does not take any ASA or Plavix. She does take rosuvastatin 5mg daily without issue. Brain MRI revealed multiple small focal areas of acute ischemic changes left cerebral hemisphere and chronic microvascular changes. Brain CT was negative. Carotid duplex and Neck CTA both revealed R carotid artery stenosis around 60% and L ICA stenosis less than 50%. [facility] Medical History Anxiety Avascular necrosis of bone of hip Back pain Bilateral carotid bruits Bladder disease Breast cancer Cancer Cardiology follow-up encounter Carotid artery stenosis Carotid stenosis, bilateral Chronic constipation Chronic pain Constipation Coronary artery disease 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 Depression Diabetes mellitus, type II Dietary restriction Dizziness Easy bruising Essential hypertension Essential hypertension Heartburn High cholesterol History of CHF (congestive heart failure) History of echocardiogram History of edema History of irregular heartbeat History of pain when walking History of renal disease History of steroid therapy History of stress test Hyponatremia with extracellular fluid depletion Hypothyroidism Injury of head and neck Irregular heart beat Leg cramps Loss of hearing Osteoporosis Pain Paroxysmal atrial fibrillation Pneumonia Shortness of breath on exertion Syncope Thyroid disease Transaminitis Uses wheelchair Valvular heart disease Vitamin D deficiency Wears glasses Wears partial dentures Home Medications Synthroid 88 mcg tablet (levothyroxine) 88 mcg PO DAILY THYROID #90 tabs 07/16/20 [Rx Last Taken 10/10/23] rosuvastatin 5 mg tablet 5 mg PO DAILY CHOLSTEROL 10/21/20 [History Last Taken 12/19/22] folic acid 1 mg tablet 1 mg PO DAILY Supplement 04/15/22 [History Last Taken 10/10/23] cholecalciferol (vitamin D3) 25 mcg (1,000 unit) tablet 25 mcg PO DAILY SUPPLEMENT 02/02/23 [History Last Taken 10/10/23] citalopram 20 mg tablet 10 mg PO DAILY DEPRESSION 02/02/23 [History Last Taken 10/10/23] insulin glargine 100 unit/mL (3 mL) subcutaneous pen (Lantus Solostar U-100 Insulin) 8 unit subcut DAILY Diabetes 02/02/23 [History Last Taken Unknown] insulin lispro 100 unit/mL subcutaneous pen (Humalog KwikPen (U-100) Insulin) 2 unit subcut TID DM 02/02/23 [History Last Taken 10/11/23] tramadol 50 mg tablet 50 mg PO TID PRN pain 02/02/23 [History Last Taken Unknown] losartan 100 mg tablet 100 mg PO DAILY BLOOD PRESSURE #90 tabs 02/10/23 [Rx Last Taken Unknown] apixaban 2.5 mg tablet 2.5 mg PO BID BLOOD THINNER #60 tabs 02/18/23 [Rx Last Taken 08/20/23 17:00] linagliptin 5 mg tablet 5 mg PO DAILY DIABETES 05/20/23 [History Last Taken 10/10/23] diltiazem HCl 120 mg capsule,extended release 24 hr 120 mg PO DAILY #30 caps 08/20/23 [Rx Last Taken Unknown] nystatin 100,000 unit/gram topical powder (Nyamyc) 1 applic topical BID PRN rash 09/14/23 [History Last Taken Unknown] sennosides 8.6 mg-docusate sodium 50 mg tablet (Stool Softener-Stimulant Laxative) 2 tab PO DAILY PRN CONSTIPATION 09/14/23 [History Last Taken 10/10/23] Allergy/AdvReac Type Severity Reaction Status Date / Time metformin Allergy Severe Rash Verified 10/11/23 01:40 neomycin [Neomycin] Allergy Severe Unknown Verified 10/11/23 01:40 Tetracyclines Allergy Severe Anaphylaxis Verified 10/11/23 01:40 Sulfa (Sulfonamide Allergy Constipatio Verified 10/11/23 01:40 Antibiotics) n metoprolol AdvReac Intermediate Bradycardia Verified 10/11/23 01:40 flecainide AdvReac bradycardia Verified 10/11/23 01:40 in combo with Metoprolol Family History Mother Thyroid disorder Father Alzheimer disease Surgical History History of cardiac catheterization History of foot surgery History of left heart catheterization (12/28/14) History of lumpectomy of left breast (~12/2022) History of right hip replacement History of thyroidectomy History of tonsillectomy and adenoidectomy Hx of colonoscopy S/P breast biopsy, left (~10/2022) S/P total right hip arthroplasty Social History household members: none Smoking Status: Former smoker how long ago did patient quit smokin years ago alcohol intake: current alcohol intake frequency: a few times a month Alcohol type: wine substance use type: does not use caffeine: Yes Type: coffee Number of servings: 2 Physical Exam Const alert, oriented x3 and no apparent distress General Appearance: cooperative and comfortable HEENT normocephalic, head/scalp atraumatic, hearing grossly normal bilaterally, external ears normal and external nose normal Eyes EOMs intact bilaterally General Eye: normal appearance of both eyes Neck General: normal visual inspection and trachea midline Resp normal respiratory effort, normal air movement, no retractions and no use of accessory muscles Effort and Inspection: able to speak in complete sentences; Negative for labored, stridor or audible wheezes Cardio Rate: tachycardic Rhythm: abnormal rhythm Extremity no clubbing, cyanosis or edema Skin no rashes or lesions noted Trauma: no lacerations or abrasions Wounds: Negative for wounds noted Neuro oriented x3, CN's II-XII intact bilaterally, moves all extremities, no focal motor deficits and no sensory deficits noted Speech: speech normal Psych mental status grossly normal Appearance: grossly normal Attitude: calm and engaged Activity / Motor Behavior: appropriate eye contact Speech: normal speech Mood & Affect: euthymic mood Judgement: judgement good Medical Records Data Medical Nutrition Assessment Dietitian: Malnutrition Criteria Met Start: 10/11/23 11:58 Freq: Status: Active Protocol: Document 10/11/23 11:58 RMA (Rec: 10/11/23 11:58 RMA [id number]) Nutrition Malnutrition Evidence of Malnutrition Exists Yes Malnutrition (severe): Chronic Evidenced By Suboptimal Energy Intake ( Severe),Weight Loss (Severe) Clinical Problem Chronic Disease or Condition Related Malnutrition Etiology Severe protein-calorie malnutrition in the context of chronic disease and debility related to inadequate oral intake Signs/Symptoms as evidenced by PO meeting less than 50% estimated nutrition needs x past 3-6 months, BMI 19.6, calculated weight loss ~9% in less than 6 month period Status Active Problem Recommendation Dietitian Recommendations/Changes Will adjust diet to 1600 calorie/consistent carbohydrate. Will add 240mL chocolate glucerna shake w/ lunch tray. Will d/c glucerna shake w/ medpass. Additional ONS as needed once PO better established with meals. Lab / Micro Data 10/10/23 18:30 10/10/23 18:30 Labs: Laboratory Results - last 24 hr 10/11/23 08:19: POC Glucose 145 H 10/11/23 11:47: POC Glucose 257 H 10/11/23 17:01: POC Glucose 232 H 10/11/23 20:33: POC Glucose 170 H 10/12/23 08:00: POC Glucose 171 H Radiology Impression Carotid Duplex 10/10/23 23:23 Interpretation Summary Irregular plaque with shadowing at the proximal right internal carotid artery with greater than 70% stenosis. Greater than 50% stenosis right external carotid artery Irregular plaque at the proximal left internal carotid artery with less than 50% stenosis Less than 50% stenosis left external carotid artery Patent antegrade vertebral arteries bilaterally Her previous examination of September 23, 2020 suggested greater than 70% stenosis of the right internal carotid and greater than 50% stenosis of the right external carotid and 50 to 69% stenosis of the left internal carotid and greater than 50% stenosis of the left external carotid Ordering Physician: Titi Sanderson Referring Physician: Karla Bhagat M.D. Performed By: Jess Keith RVT Brain MRI 10/11/23 09:30 IMPRESSION: 1. Multiple small focal areas of acute ischemic change left cerebral hemisphere which may represent thromboembolic phenomenon. 2. Chronic microvascular changes. N.B. : The above Results were Read Back by Warner Monsivais MD to Abbie Pederson OT, and understanding confirmed on 10/11/2023 10:30:49 (ET). Electronically Signed: Warner Monsivais MD at 10:30 EST , Charges/Coding Visit Charges Inpatient E&M: 62227 Init Hosp L2
[2023-10-12] MEDS: Insulin Glargine-YFGN 100 UNIT/ML Pen SC (08:54)
[2023-10-12] MEDS: Insulin Lispro 100 UNIT/ML INSULN.PEN SC ×3 (08:54→17:23)
[2023-10-12] MEDS: APIXABAN 2.5 MG TABLET (WCH) PO ×2 (09:09→20:41)
[2023-10-12] MEDS: LINAGLIPTIN 5 MG TABLET PO (09:10)
[2023-10-12] MEDS: Citalopram 10 MG Tablet PO (09:10)
[2023-10-12] MEDS: Cholecalciferol (VIT D3) 25 MCG TABLET (1,000 UNITS) PO (09:10)
[2023-10-12] MEDS: Aspirin 81 MG TAB.CHEW PO (09:10)
[2023-10-12] MEDS: Folic Acid 1 MG Tablet PO (09:10)
[2023-10-12] MEDS: Senna/Docusate Sodium 1 Tablet 2 TABLET PO (09:10)
[2023-10-12] MEDS: dilTIAZem CD 120 MG Capsule PO (09:10)
--- NOTE | 2023-10-12 09:13 | CASEMGMT ---
Patient has a Healthcare Power of Ramp Jockey on file at [facility]. Patient's son Ramin is patient's Healthcare Power of Ramp Jockey. Patient does not have a Healthcare Living Will. Chantel RED
--- NOTE | 2023-10-12 11:45 | CASEMGMT ---
Addendum entered by Ayan Lynch 10/12/23 16:31: [facility] order entered for PT/OT eval and treat and referral sent to [facility] via [facility]. Original Note: AMBER FRENCH Assessment: RN MANOLO to room to meet with patient for initial transition planning/care coordination?assessment.? Introduced self and role at [facility].? Pt voices understanding and consents to?assessment.? Pt sitting up in chair and in no distress.? Pt is A/O and answers all questions appropriately.?? Care providers, pharmacy, and demographics verified/updated at this time. PCP: Dr Bhagat Specialists: Dr Raymond-cardiology. Dr Baum-oncology Preferred Pharmacy: [facility] Insurance: [facility] Prescription Benefit:? Yes LNOK: Pepe Redman, son and daughter in [facility] - Angely Redman, daughter in [place] Living Arrangements: Pt lives at home in a one story condo with 2 steps to enter. Pt has a caregiver that comes 4-5x week and assists with meals and assists pt w/showers/personal care. Caregiver also gets her groceries and gives her medications to her. Pt's son sets up weekly pill containers. Pt also has a cleaning lady every other week. Transportation:?Caregiver provides transportation DME: ? medical alert, rollator, activities director, shower?chair, rails/grab bars, RTS, pulse ox, CGM system and supplies. HHC/SNF: Hx of going to [facility] and has had [facility] in the past. Pt states she would like [facility] again for therapy and declines wanting list of other HHC options. MARINA DRY DOCK MANAGER CM, Jess, made aware. Pt wishes to return home and states has no concerns with going home at time of discharge.? CM?to follow for any further discharge planning/needs.? Pt voices no further concerns/needs at this time.? Advised pt to ask for?CM?if any further questions/concerns/needs arise.? Voices understanding. Plan: Home w/HHC Aishwarya LARSEN RN, CM
[2023-10-12 13:10] LABS: Bedside Glucose 254 mg/dL (74-106)
--- NOTE | 2023-10-12 15:37 | CHAPLAIN ---
Type of Pastoral Visit _x__ Initial Visit ___ Follow-up Visit ___ On-call Visit ___ General Patient Visit ___ Spiritual Assessment ___ Family Conference ___ Bereavement ___ Rapid Response ___ Code Blue ___ Other (describe below) Pastoral Care Referral From _x__ Patient ___ Family ___ Nurse ___ Physician ___ [employer] ___ Medical Collector ___ Other (describe below) Sacrament/Intervention _x__ Active listening ___ Anointing ___ Taoism ___ Bereavement ___ Communion _x__ Emilie exploration ___ _x__ Life review _x__ Prayer ___ Reconciliation ___ Sacrament of Sick _x__ Supportive presence ___ Wedding ___ Other (describe below) Pastoral Comments patient is alert and able to discuss her current health situation and the possibilities of the future care of her life; pt is in discussion with family about possible move to [place]; pt speaks of concern for a good friend with health issues and is focused on others more than herself; pt speaks of her emilie and desires prayer for her wellbeing;
--- NOTE | 2023-10-12 17:27 | PCM.PN.HOSP ---
Reason for Visit Reason for Visit: Diagnoses Transient cerebral ischemic attack, unspecified (10/11/23) Paroxysmal atrial fibrillation (10/11/23) Cerebral infarction, unspecified (10/11/23) Occlusion and stenosis of bilateral carotid arteries (10/11/23) Subjective Subjective Patient seen at bedside this morning. Sitting in bedside chair, conversing normally, no acute distress. Patient is quite frail baseline, has significant thoracic kyphosis and appears somewhat slowed over at baseline, but reports feeling comfortable and in no acute pain. Patient denies any recurrence of slurred speech, extremity weakness or numbness/tingling. Patient feels like she is about at her baseline, but she notably does have a home health career counselor that sees her on a daily basis. No other acute concerns this time. Objective Data Objective Data Vital Signs: Vital Signs Temp Pulse Resp BP Pulse Ox O2 Del Method 98.0 F 86 16 152/96 H 98 Room Air 10/12/23 17:05 10/12/23 17:05 10/12/23 17:05 10/12/23 17:05 10/12/23 17:05 10/12/23 17:21 Oxygen Delivery Method Room Air Weight: 45.6 kg Body Mass Index (BMI) 19.6 Intake & Output: Intake and Output for Last 24 Hours 10/10/23 10/11/23 10/12/23 23:59 23:59 23:59 Intake Total 500 / 500 1715 / 1715 Output Total 1650 / 1650 400 / 400 Balance 500 / 500 65 / 65 -400 / -400 Medical Nutrition Assessment Dietitian: Malnutrition Criteria Met Start: 10/11/23 11:58 Freq: Status: Active Protocol: Document 10/11/23 11:58 RMA (Rec: 10/11/23 11:58 RMA [id number]) Nutrition Malnutrition Evidence of Malnutrition Exists Yes Malnutrition (severe): Chronic Evidenced By Suboptimal Energy Intake ( Severe),Weight Loss (Severe) Clinical Problem Chronic Disease or Condition Related Malnutrition Etiology Severe protein-calorie malnutrition in the context of chronic disease and debility related to inadequate oral intake Signs/Symptoms as evidenced by PO meeting less than 50% estimated nutrition needs x past 3-6 months, BMI 19.6, calculated weight loss ~9% in less than 6 month period Status Active Problem Recommendation Dietitian Recommendations/Changes Will adjust diet to 1600 calorie/consistent carbohydrate. Will add 240mL chocolate glucerna shake w/ lunch tray. Will d/c glucerna shake w/ medpass. Additional ONS as needed once PO better established with meals. Lab / Micro Data 10/10/23 18:30 10/10/23 18:30 Labs: Laboratory Results - last 24 hr 10/11/23 20:33: POC Glucose 170 H 10/12/23 08:00: POC Glucose 171 H 10/12/23 12:46: POC Glucose 254 H Radiography Diagnostic Testing: Radiology Impression Echocardiogram 10/10/23 23:26 Interpretation Summary The estimated ejection fraction is 50-55 %. Negative bubble study with no evidence of intracardiac shunt No intracardiac thrombus demonstrated. Ordering Physician: Titi Sanderson Referring Physician: Karla Bhagat M.D. Performed By: Roseline Mott RCS Physical Exam Const alert, oriented x3 and no apparent distress General Appearance: cooperative and comfortable HEENT normocephalic, head/scalp atraumatic, hearing grossly normal bilaterally, nasal mucous membranes and turbinates normal and moist oral mucous membranes Eyes PERRL, EOMs intact bilaterally and conjunctivae normal Neck full ROM, no lymphadenopathy and supple Lymph Lymphatic: no lymphadenopathy noted Chest inspection of chest normal Resp normal respiratory effort, normal air movement, no use of accessory muscles and clear to auscultation bilaterally Cardio regular rate, regular rhythm, no murmurs and peripheral pulses 2+ throughout GI normal to inspection, nondistended, normoactive bowel sounds, soft to palpation, non-tender and non-distended Back/Spine normal ROM Back/Spine Narrative: Significant thoracic kyphosis noted. Extremity normal to inspection, full ROM and no pedal edema Skin no rashes or lesions noted Neuro moves all extremities and no focal motor deficits Psych mental status grossly normal Assessment & Plan Assessment/Plan (1) Acute CVA (cerebrovascular accident): PLAN: Plan Patient is an 83-year-old female who presented [facility] ED on 10/10/2023 with episode of slurred speech and arm weakness at home concerning for stroke. 1. Acute CVA; History of bilateral carotid stenosis with right carotid bruit Presented with an episode of slurred speech and right arm/hand weakness that had resolved prior to arrival to ED. MRI brain without contrast on 10/11 showed multiple small focal areas of acute ischemic change left cerebral hemisphere that may represent thromboembolic phenomenon. CTA head/neck on admit showed atherosclerotic plaques of bilateral carotid bifurcations with 60% stenosis at origin of right ICA and less than 50% stenosis of proximal left ICA, otherwise no evidence of intracranial arterial flow-limiting stenosis or large vessel occlusion. Carotid duplex ultrasound on 10/11 showed irregular plaque with shadowing at proximal right ICA with greater than 70% stenosis, irregular plaque at proximal left internal carotid artery with less than 50% stenosis. Lipid panel fairly benign. ? Vascular surgery evaluated, no need for surgical intervention, recommended medical management. Teleneurology evaluated, suspected that emboli could be secondary to carotid artery plaques but could also be due to a cardiac thrombus; noted that patient is only on Eliquis 2.5 mg twice daily, however this is indicated given her age > 80 and weight < 60 kg. We will continue current dosing of Eliquis. Continue aspirin and statin. Echo pending. PT/OT/case management consulted, planning for discharge home with home health care, hopefully tomorrow. 2. Paroxysmal atrial fibrillation on Eliquis ? Stable, rate controlled on admission. Continue home Eliquis and diltiazem. Chronic medical conditions: ? Type 2 diabetes: Home regimen of Lantus 8 units daily, lispro 2 units 3 times daily AC, linagliptin 5 mg daily. Continue glargine 4 units daily, Humalog 2 units 3 times daily AC with sliding scale, adjust as needed. ? Hypothyroidism: Continue home Synthroid. ? Hypertension: Continue home losartan. ? Hyperlipidemia: Continue home statin. DVT prophylaxis: Eliquis CODE STATUS: DNR CCA, DO NOT INTUBATE Expected disposition: Home with home health care, tomorrow Total clinical time spent by myself addressing the patient's medical issues, reviewing all the data, and collaborating with patient's care team: 35 minutes. Charges/Coding Visit Charges Inpatient E&M: 76617 Subs Hosp L2
[2023-10-12 17:51] LABS: Bedside Glucose 286 mg/dL (74-106)
[2023-10-12] MEDS: Atorvastatin Calcium 40 MG Tablet PO (20:41)
[2023-10-12 21:15] LABS: Bedside Glucose 224 mg/dL (74-106)
[2023-10-13] VITALS (9 sets, daily range): BP systolic 130–165; BP diastolic 67–96; PULSE 16–118; RESP 16–116; TEMP 36.6–36.8; O2SAT 95–98; BMI 19.6
[2023-10-13] MEDS: Levothyroxine 88 MCG Tablet PO (05:02)
[2023-10-13] MEDS: APIXABAN 2.5 MG TABLET (WCH) PO (09:11)
[2023-10-13] MEDS: Citalopram 10 MG Tablet PO (09:12)
[2023-10-13] MEDS: Cholecalciferol (VIT D3) 25 MCG TABLET (1,000 UNITS) PO (09:12)
[2023-10-13] MEDS: Insulin Lispro 100 UNIT/ML INSULN.PEN SC ×2 (09:12→12:42)
[2023-10-13] MEDS: Aspirin 81 MG TAB.CHEW PO (09:12)
[2023-10-13] MEDS: Folic Acid 1 MG Tablet PO (09:12)
[2023-10-13] MEDS: dilTIAZem CD 120 MG Capsule PO (09:12)
[2023-10-13] MEDS: LINAGLIPTIN 5 MG TABLET PO (09:12)
[2023-10-13] MEDS: Insulin Glargine-YFGN 100 UNIT/ML Pen SC (09:13)
[2023-10-13 10:37] LABS: Bedside Glucose 203 mg/dL (74-106)
--- NOTE | 2023-10-13 11:15 | NURSING ---
11:15 Dr. Rafael Crump in pt room reviewing DC, verbal order given to DC [facility] due to pt being DC'd
[2023-10-13 13:12] LABS: Bedside Glucose 236 mg/dL (74-106)
--- NOTE | 2023-10-13 13:21 | PCM.DC ---
Discharge Instructions Diet Discharge Diet: No restrictions Activity Discharge Activity: No Restrictions Weight Bearing Status: Full weight bearing Follow Up Care Please Follow Up With: Karla Bhagat MD When: As needed Test Results: Test results from this visit will be discussed in further detail at your follow-up appointment, if applicable. Pending Tests Upon Discharge: None Discharge Plan Admission Admit Date/Time: 10/11/23 15:55 Primary Reason for Your Visit: Acute CVA Attending Provider: Samuel Holland Primary Care Provider: Karla Bhagat Consulting Providers: Titi Sanderson; Kirt Ricks Instructions Additional Instructions / Restrictions: Please take the following medications going forward: ? Aspirin 81 mg daily, for stroke prevention ? Crestor 20 mg daily, for high cholesterol and stroke prevention Continue all other home medications as previously prescribed. Follow-up with your primary care doctor as needed. Discharge Orders/Prescriptions Prescriptions: New aspirin 81 mg Tablet,Chewable 81 mg PO BREAKFAST 90 Days Qty: 90 0RF rosuvastatin [Crestor] 20 mg tablet 20 mg PO DAILY 90 Days Qty: 90 3RF Continued levothyroxine [Synthroid] 88 mcg tablet 88 mcg PO DAILY Qty: 90 3RF Rx Instructions: Patient can only take brand name Synthroid tramadol 50 mg tablet 50 mg PO TID PRN (Reason: pain) Patient Comments: 3 times a day AM, after lunch, after supper cholecalciferol (vitamin D3) 25 mcg (1,000 unit) tablet 25 mcg PO DAILY citalopram 20 mg tablet 10 mg PO DAILY linagliptin 5 mg tablet 5 mg PO DAILY sennosides-docusate sodium [Stool Softener-Stimulant Laxat] 8.6-50 mg tablet 2 tab PO DAILY PRN (Reason: CONSTIPATION) Patient Comments: 1-2 tabs as needed folic acid 1 mg Tablet 1 mg PO DAILY insulin glargine [Lantus Solostar U-100 Insulin] 100 unit/mL (3 mL) insulin pen 8 unit SUBCUT DAILY Patient Comments: pt states she takes 7 units insulin lispro [Humalog KwikPen Insulin] 100 unit/mL insulin pen 2 unit SUBCUT TID Patient Comments: inject 2 units three times daily before meals nystatin [Nyamyc] 100,000 unit/gram powder 1 applic topical BID PRN (Reason: rash) diltiazem HCl 120 mg capsule,extended release 24hr 120 mg PO DAILY Qty: 30 1RF losartan 100 mg tablet 100 mg PO DAILY Qty: 90 3RF apixaban 2.5 mg tablet 2.5 mg PO BID Qty: 60 12RF Discontinued rosuvastatin 5 mg tablet 5 mg PO DAILY Referrals / Follow Up: Karla Bhagat MD [Primary Care Provider] - Disposition Disposition (needs filled in before D/C Order can be placed): Home Health Service
--- NOTE | 2023-10-13 13:26 | DS.PCM_ITS ---
Providers Date of Admission: 10/11/23 Date of Discharge: 10/13/23 Primary Care Physician: Dr. Karla Bhagat MD Consultations 10/12/23 07:37 Consult: Vascular Surgery Routine Consulting Provider: Kirt Ricks Reason for Consult: acute CVA, suspected thromboembolic, b/l carotid artery disease EMERGENT Consult: No MD Notified: Yes Date Notified: 10/12/23 Time Notified: 07:43 Method of Notification: Text Reason For Visit: TIA WITH SLURRED SPEECH AND CONFUSION; NOW RESOLVE Diagnosis Discharge Diagnosis (1) Acute CVA (cerebrovascular accident): Status: Acute Code(s): I63.9 - Cerebral infarction, unspecified Medications at Discharge Home Medications Synthroid 88 mcg tablet (levothyroxine) 88 mcg PO DAILY THYROID #90 tabs 07/16/20 folic acid 1 mg tablet 1 mg PO DAILY Supplement 04/15/22 cholecalciferol (vitamin D3) 25 mcg (1,000 unit) tablet 25 mcg PO DAILY SUPPLEMENT 02/02/23 citalopram 20 mg tablet 10 mg PO DAILY DEPRESSION 02/02/23 insulin glargine 100 unit/mL (3 mL) subcutaneous pen (Lantus Solostar U-100 Insulin) 8 unit subcut DAILY Diabetes 02/02/23 insulin lispro 100 unit/mL subcutaneous pen (Humalog KwikPen (U-100) Insulin) 2 unit subcut TID DM 02/02/23 tramadol 50 mg tablet 50 mg PO TID PRN pain 02/02/23 losartan 100 mg tablet 100 mg PO DAILY BLOOD PRESSURE #90 tabs 02/10/23 apixaban 2.5 mg tablet 2.5 mg PO BID BLOOD THINNER #60 tabs 02/18/23 linagliptin 5 mg tablet 5 mg PO DAILY DIABETES 05/20/23 diltiazem HCl 120 mg capsule,extended release 24 hr 120 mg PO DAILY #30 caps 08/20/23 nystatin 100,000 unit/gram topical powder ([facility]) 1 applic topical BID PRN rash 09/14/23 sennosides 8.6 mg-docusate sodium 50 mg tablet (Stool Softener-Stimulant Laxative) 2 tab PO DAILY PRN CONSTIPATION 09/14/23 aspirin 81 mg chewable tablet 81 mg PO BREAKFAST 90 days #90 tabs 10/13/23 rosuvastatin 20 mg tablet (Crestor) 20 mg PO DAILY 90 days #90 tabs 10/13/23 Hospital Course Operations None Procedures Transthoracic echo and - (CT brain without contrast, CTA head/neck, MRI brain without contrast, carotid duplex ultrasound, chest x-ray) Summary of Care Provided Minutes Spent on Discharge: 35 Hospital Course: Patient is an 83-year-old female who presented [facility] ED on 10/10/2023 with episode of slurred speech and arm weakness at home concerning for stroke. Hospital course as noted below. Acute CVA; history of bilateral carotid stenosis with right carotid bruit: Presented with an episode of slurred speech and right arm/hand weakness that had resolved prior to arrival to ED. MRI brain without contrast on 10/11 showed multiple small focal areas of acute ischemic change left cerebral hemisphere that may represent thromboembolic phenomenon. CTA head/neck on admit showed atherosclerotic plaques of bilateral carotid bifurcations with 60% stenosis at origin of right ICA and less than 50% stenosis of proximal left ICA, otherwise no evidence of intracranial arterial flow-limiting stenosis or large vessel occlusion. Carotid duplex ultrasound on 10/11 showed irregular plaque with shadowing at proximal right ICA with greater than 70% stenosis, irregular plaque at proximal left internal carotid artery with less than 50% stenosis. Lipid panel fairly benign. Echo showed normal EF, no evidence of intracardiac thro mbus. Vascular surgery evaluated, no need for surgical intervention, recommended medical management. Teleneurology evaluated, suspected that emboli could be secondary to carotid artery plaques versus intracardiac thrombus; they notably recommended increasing to Eliquis 5 mg twice daily, however patient is on correct dose of Eliquis for A-fib given her age > 78 and weight < 60 kg. ? Continue home Eliquis 2.5 mg daily, added aspirin 81 mg daily on discharge. PT/OT/case management followed; further recommendations, patient would qualify for custodial facility on discharge but patient and family preferred to return home with home health care as patient has a private aide that sees her on a daily basis. Notably, given patient's baseline at this time, would be reasonable for patient and family to consider facility placement if needed. Paroxysmal atrial fibrillation Eliquis: Stable, rate controlled during admission. Continue home Eliquis and diltiazem on discharge. Discharge diagnoses: ? Acute CVA ? History of bilateral carotid stenosis with right carotid bruit ? Paroxysmal atrial fibrillation on Eliquis ? Type 2 diabetes ? Hypothyroidism ? Hypertension ? Hyperlipidemia Total clinical time spent by myself addressing the patient's discharge needs: 35 minutes. Physical Exam Const alert, oriented x3 and no apparent distress General Appearance: cooperative and comfortable HEENT normocephalic, head/scalp atraumatic, hearing grossly normal bilaterally, nasal mucous membranes and turbinates normal and moist oral mucous membranes Eyes PERRL, EOMs intact bilaterally and conjunctivae normal Neck full ROM, no lymphadenopathy and supple Lymph Lymphatic: no lymphadenopathy noted Chest inspection of chest normal Resp normal respiratory effort, normal air movement, no use of accessory muscles and clear to auscultation bilaterally Cardio regular rate, regular rhythm, no murmurs and peripheral pulses 2+ throughout GI normal to inspection, nondistended, normoactive bowel sounds, soft to palpation, non-tender and non-distended Back/Spine normal ROM Back/Spine Narrative: Significant thoracic kyphosis noted. Extremity normal to inspection, full ROM and no pedal edema Skin no rashes or lesions noted Neuro moves all extremities and no focal motor deficits Psych mental status grossly normal Medical Records Data Medical Nutrition Assessment Dietitian: Malnutrition Criteria Met Start: 10/11/23 11:58 Freq: Status: Active Protocol: Document 10/11/23 11:58 RMA (Rec: 10/11/23 11:58 RMA [id number]) Nutrition Malnutrition Evidence of Malnutrition Exists Yes Malnutrition (severe): Chronic Evidenced By Suboptimal Energy Intake ( Severe),Weight Loss (Severe) Clinical Problem Chronic Disease or Condition Related Malnutrition Etiology Severe protein-calorie malnutrition in the context of chronic disease and debility related to inadequate oral intake Signs/Symptoms as evidenced by PO meeting less than 50% estimated nutrition needs x past 3-6 months, BMI 19.6, calculated weight loss ~9% in less than 6 month period Status Active Problem Recommendation Dietitian Recommendations/Changes Will adjust diet to 1600 calorie/consistent carbohydrate. Will add 240mL chocolate glucerna shake w/ lunch tray. Will d/c glucerna shake w/ medpass. Additional ONS as needed once PO better established with meals. Weight / BMI Weight Weight: 45.6 kg Body Mass Index (BMI) 19.6 ABG / Lab / Microbiology Data 10/10/23 18:30 10/10/23 18:30 Laboratory: Laboratory Results - last 24 hr 10/12/23 17:14: POC Glucose 286 H 10/12/23 20:47: POC Glucose 224 H 10/13/23 08:29: POC Glucose 203 H 10/13/23 12:40: POC Glucose 236 H Radiography Diagnostic Testing: Radiology Impression Echocardiogram 10/10/23 23:26 Interpretation Summary The estimated ejection fraction is 50-55 %. Negative bubble study with no evidence of intracardiac shunt No intracardiac thrombus demonstrated. Ordering Physician: Titi Sanderson Referring Physician: Karla Bhagat M.D. Performed By: Roseline Mott RCS D/C Instructions Discharge Diet: No restrictions Weight Bearing Status: Full weight bearing Pending Tests Upon Discharge: None Please Follow Up With: Karla Bhagat MD When: As needed Meaningful Use Info Meaningful Use Diagnoses (Choose all that apply): None applicable Discharge Plan Admission Admit Date/Time: 10/11/23 15:55 Primary Reason for Your Visit: Acute CVA Attending Provider: Samuel Holland Primary Care Provider: Karla Bhagat Consulting Providers: Titi Sanderson; Kirt Ricks Instructions Additional Instructions / Restrictions: Please take the following medications going forward: ? Aspirin 81 mg daily, for stroke prevention ? Crestor 20 mg daily, for high cholesterol and stroke prevention Continue all other home medications as previously prescribed. Follow-up with your primary care doctor as needed. Discharge Orders/Prescriptions Prescriptions: New aspirin 81 mg Tablet,Chewable 81 mg PO BREAKFAST 90 Days Qty: 90 0RF rosuvastatin [Crestor] 20 mg tablet 20 mg PO DAILY 90 Days Qty: 90 3RF Continued levothyroxine [Synthroid] 88 mcg tablet 88 mcg PO DAILY Qty: 90 3RF Rx Instructions: Patient can only take brand name Synthroid tramadol 50 mg tablet 50 mg PO TID PRN (Reason: pain) Patient Comments: 3 times a day AM, after lunch, after supper cholecalciferol (vitamin D3) 25 mcg (1,000 unit) tablet 25 mcg PO DAILY citalopram 20 mg tablet 10 mg PO DAILY linagliptin 5 mg tablet 5 mg PO DAILY sennosides-docusate sodium [Stool Softener-Stimulant Laxat] 8.6-50 mg tablet 2 tab PO DAILY PRN (Reason: CONSTIPATION) Patient Comments: 1-2 tabs as needed folic acid 1 mg Tablet 1 mg PO DAILY insulin glargine [Lantus Solostar U-100 Insulin] 100 unit/mL (3 mL) insulin pen 8 unit SUBCUT DAILY Patient Comments: pt states she takes 7 units insulin lispro [Humalog KwikPen Insulin] 100 unit/mL insulin pen 2 unit SUBCUT TID Patient Comments: inject 2 units three times daily before meals nystatin [Nyamyc] 100,000 unit/gram powder 1 applic topical BID PRN (Reason: rash) diltiazem HCl 120 mg capsule,extended release 24hr 120 mg PO DAILY Qty: 30 1RF losartan 100 mg tablet 100 mg PO DAILY Qty: 90 3RF apixaban 2.5 mg tablet 2.5 mg PO BID Qty: 60 12RF Discontinued rosuvastatin 5 mg tablet 5 mg PO DAILY Referrals / Follow Up: Karla Bhagat MD [Primary Care Provider] - (The office will call you to schedule an appt. ) Disposition Disposition (needs filled in before D/C Order can be placed): Home Health Service Charges/Coding Visit Charges Inpatient E&M: 36812 Disch Hosp >30min
--- NOTE | 2023-10-13 14:30 | CASEMGMT ---
Addendum entered by Jess Watkins 10/13/23 15:54: AMBER FRENCH received call from [facility] and they are able to accept the patient with Wednesday start of care. AMBER FRENCH updated patient and is agreeable to plan. Patient had no further questions or concerns at this time. AMBER FRENCH updated patient's discharge plan. Original Note: AMBER FRENCH received updated from [facility] that they only have nursing available and no therapy in patient's service area. AMBER FRENCH updated patient and a list of [facility] providers including quality and resource use data and consistent with the patient?s preferred geographical region, medical needs, and insurance network were provided from the [employer] Guide. Patient reviewed list with friend and prefers [facility]. Patient had no further needs or concerns at this time. AMBER FRENCH sent referral to [facility], awaiting acceptance. CM will continue to follow this patient and plan for a safe discharge.
--- NOTE | 2023-10-14 06:42 | EKG12_ITS ---
Test Reason : CHEST PAIN Blood Pressure : / mmHG Vent. Rate : 100 BPM Atrial Rate : 000 BPM P-R Int : 000 ms QRS Dur : 080 ms QT Int : 368 ms P-R-T Axes : 000 -16 -09 degrees QTc Int : 474 ms Atrial fibrillation Indeterminate axis Septal infarct , age undetermined Possible Lateral infarct , age undetermined Abnormal ECG When compared with ECG of 11-OCT-2023 01:31, MANUAL COMPARISON REQUIRED, DATA IS UNCONFIRMED Confirmed by NIDHI JOLLY, LAINE ([id number]), editor newspaper CELESTE RODRIGUEZ ([id number]) on 10/20/2023 1:06:07 PM Referred By: Confirmed By:LAINE TERRELL MD
== END 2023-10-13 16:06 | disposition home health service (06) | DRG 64 ==
LOC: ED 23:09 → PCU 23:23
PROVIDERS: Admitting Provider Internal Medicine; Emergency Provider Emergency Medicine; PCP Internal Medicine; Visit Provider Hospitalist
DX: I63.9 Cerebral infarction, unspecified (principal); E43 Unspecified severe protein-calorie malnutrition; G81.91 Hemiplegia, unspecified affecting right dominant side; Z68.1 Body mass index [BMI] 19.9 or less, adult; E11.65 Type 2 diabetes mellitus with hyperglycemia; I48.0 Paroxysmal atrial fibrillation; Z79.4 Long term (current) use of insulin; E89.0 Postprocedural hypothyroidism; I10 Essential (primary) hypertension; I65.23 Occlusion and stenosis of bilateral carotid arteries; E78.00 Pure hypercholesterolemia, unspecified; I25.10 Atherosclerotic heart disease of native coronary artery without angina pectoris; R29.700 NIHSS score 0; R47.81 Slurred speech; Z66 Do not resuscitate; Z79.82 Long term (current) use of aspirin; Z79.84 Long term (current) use of oral hypoglycemic drugs; Z79.01 Long term (current) use of anticoagulants; Z79.899 Other long term (current) drug therapy; Z86.73 Personal history of transient ischemic attack (TIA), and cerebral infarction without residual deficits; Z87.891 Personal history of nicotine dependence
CPT/HCPCS: 36415; 70450; 70496; 70498; 70551; 71045; 80048; 80061; 81001; 82962; 84443; 84484; 85025; 92522; 93005; 93306; 93880; 94762; 97110; 97162; 97166; 97530; 97535; 97802; 99285; J7030; Q9967; A4216

== ENCOUNTER → 2023-11-19 | Outpatient (CLI) | payer MEDICARE, SELFPAY ==
[2023-11-19 10:55] LABS: Anion Gap 4 (5-15); BUN 24 mg/dL (7-18); BUN/Creat Ratio 29.6 RATIO (10-20); Calcium,Total 10.1 mg/dL (8.5-10.1); Chloride 105 mmol/L (98-107); Creatinine, Serum 0.81 mg/dL (0.55-1.02); EST Glomerular Filtration Rate 71 mL/min (>60); Est Glom Filt Rate - Afr Amer 86 mL/min (>60); Glucose 185 mg/dL (74-106); Potassium 3.9 mmol/L (3.5-5.1); Sodium Level 138 mmol/L (136-145)
== END | disposition home or self-care (01) ==
LOC: LAB 08:46
PROVIDERS: PCP Internal Medicine; Visit Provider Internal Medicine
DX: I10 Essential (primary) hypertension (principal)
CPT/HCPCS: 36415; 80048

== ENCOUNTER → 2023-11-25 | Outpatient (CLI) | payer MEDICARE, SELFPAY ==
--- NOTE | 2023-11-25 14:04 | VDLE_ITS ---
Reason For Study: Right leg swelling RIGHT LEFT GSV is normal. CFV is compressible, spontaneous, phasic, CFV is compressible, spontaneous, phasic, competent, and demonstrates normal competent and demonstrates normal augmentation. augmentation. FV is compressible, spontaneous, phasic, competent and demonstrates normal augmentation. POP V is compressible, spontaneous, phasic, competent and demonstrates normal augmentation. T/P Trunk is compressible. PTV is compressible. RT PerV is compressible. Nonvascularized structure is noted in the right popliteal fossa that measures 1.13 x 2.76 x 4.16 cm. Procedure This is a venous duplex using B-mode, color flow and spectral Doppler. Exam performed in department. A preliminary report was called and/or faxed to Dr. Paz. VL/Venous Duplex US, Unilateral Interpretation Summary There is no evidence of right lower extremity deep vein thrombosis. Right great saphenous vein appears patent and compressible segmentally. Complex right popliteal structure measuring 1.13 x 2.76 x 4.16 cm. Nonvascular. Possible Resendiz's cyst with hemorrhage. Clinical correla tion would be appropriate. Normal flow patterns left common femoral vein Ordering Physician: Joshua Paz Referring Physician: Karla Bhagat M.D. Performed By: Jess Keith RVT
== END | disposition home or self-care (01) ==
LOC: CVS 14:04
PROVIDERS: PCP Internal Medicine; Referring Provider Psychiatry & Neurology Neurology; Visit Provider Psychiatry & Neurology Neurology
DX: R60.0 Localized edema (principal)
CPT/HCPCS: 93971

== ENCOUNTER → 2023-12-03 | Outpatient (CLI) | payer MEDICARE, SELFPAY | END | disposition home or self-care (01) | LOC: MTLAB 16:59 | PROVIDERS: PCP Internal Medicine; Referring Provider Internal Medicine; Visit Provider Internal Medicine | DX: R41.82 Altered mental status, unspecified (principal); E11.319 Type 2 diabetes mellitus with unspecified diabetic retinopathy without macular edema; I48.91 Unspecified atrial fibrillation | CPT/HCPCS: 87086; 87088 ==

== ENCOUNTER → 2024-08-16 | Outpatient (CLI) | payer MEDICARE, SELFPAY ==
--- NOTE | 2024-08-16 12:55 | CDU_ITS ---
Reason For Study: Lightheadedness, carotid stenosis Rt. Velocities/BP Lt. Velocities/BP Prox CCA 46.6/7.8 cm/sec. Prox CCA 112/13.3 cm/sec. Mid CCA 67.4/11.6 cm/sec. Mid CCA 106.5/11.5 cm/sec. Dist CCA 72.1/12.6 cm/sec. Dist CCA 95.5/11.5 cm/sec. Prox ICA 204.6/26.8 cm/sec. Prox ICA 113.8/11.5 cm/sec. Mid ICA 90/18.8 cm/sec. Mid ICA 64.8/12.5 cm/sec. Dist ICA 51.7/13.4 cm/sec. Dist ICA 70.9/15.1 cm/sec. Rt. ICA/CCA = 3.03. Lt. ICA/CCA = 1.07. Prox ECA 182.2/6 cm/sec. Prox ECA 130.2 cm/sec. Rt. Vert. 62.6/6 cm/sec. Lt. Vert. 41.3/11.6 cm/sec. Right Extracranial There is homogeneous, smooth atherosclerotic plaque noted in the right common carotid artery. There is heterogeneous, irregular atherosclerotic plaque noted in the right internal carotid artery. There is heterogeneous, irregular atherosclerotic plaque noted in the right external carotid artery. Antegrade flow is noted in the right vertebral artery. Left Extracranial There is heterogeneous, irregular atherosclerotic plaque noted in the left common carotid artery. There is heterogeneous, irregular atherosclerotic plaque noted in the left internal carotid artery. There is heterogeneous, irregular atherosclerotic plaque noted in the left external carotid artery. Antegrade flow is noted in the left vertebral artery. Procedure Carotid Duplex [id number]. This is a Carotid Duplex examination using B-mode, color flow and specral Doppler. Exam performed in department. VL/Carotid Duplex Ultrasound Interpretation Summary Moderate (50-69%) stenosis right extracranial internal carotid. Mild (<50%) stenosis left extracranial internal carotid. Patent and antegrade vertebrals bilaterally. Ordering Physician: Tyesha Spencer Referring Physician: Karla Bhagat M.D. Performed By: Jess Keith RVT
== END | disposition home or self-care (01) ==
LOC: CVS 12:53
PROVIDERS: PCP Internal Medicine; Referring Provider Nurse Practitioner Gerontology; Visit Provider Nurse Practitioner Gerontology
DX: R42 Dizziness and giddiness (principal); I65.29 Occlusion and stenosis of unspecified carotid artery
CPT/HCPCS: 93880

== ENCOUNTER 2024-11-03 14:00 | Emergency (ER) | payer MEDICARE, SELFPAY ==
[2024-11-03 14:01] VITALS: BP 160/79; PULSE 62; RESP 16; TEMP 36.8; O2SAT 98
[2024-11-03 14:03] VITALS: BMI 20.9
[2024-11-03 14:22] VITALS: O2SAT 95
--- NOTE | 2024-11-03 14:22 | EKG12_ITS ---
Test Reason : Blood Pressure : */* mmHG Vent. 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
[2024-11-03] MEDS: 0.9% Normal Saline (500mL Bag) 500 ML 999 ML IV (14:49)
[2024-11-03 14:51] LABS: Absolute Lymphocyte Count 1.07 X10^3/uL (0.83-4.51); Basophil# 0.07 X10^3/uL; Basophil% 1.2 % (0-1); Eosinophil# 0.34 X10^3/uL; Eosinophils% 5.7 % (0-5); Hematocrit 43.1 % (37-47); Hemoglobin 13.8 g/dL (12.0-15.0); Lymphocyte # 1.07 X10^3/ul (0.83-4.51); Lymphocyte % 17.8 % (19-41); Mean Corpuscular Hgb 28.3 pg (27.0-32.0); Mean Corpuscular Volume 88.5 fL (81-99); Mean Platelet Vol. 10.5 fl (6.2-12.0); Monocyte# 0.55 X10^3/uL; Monocyte% 9.2 % (0-10); NRBC Flagged by Analyzer 0 % (0-5); Neutrophil # 3.95 X10^3/uL (2.7-7.7); Neutrophil % 65.8 % (47-70); Platelet Count 185 K/mm3 (150-450); RBC Distribution Width CV 13.7 % (11.6-14.6); RBC Distribution Width SD 44.2 fl (35.1-43.9); Red Blood Count 4.87 M/mm3 (4.2-5.4)
--- NOTE | 2024-11-03 14:54 | EX.ED.DYSGE1 ---
HPI History of Present Illness Chief Complaint: Palpitations Narrative Narrative: Patient is a 84-year-old female who is presenting to the ER today from PCP office of Dr. Bhagat with chief complaint of palpitations, some mild weakness, shortness of breath. Patient was in the office for a outpatient follow-up. Patient has had difficult time managing her blood pressure and her heart rate recently. 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 Patient has a history of chronic A-fib. Patient has been on Inderal and Cardizem recently. Patient has a history of dementia, osteoarthritis with significant kyphosis, A-fib, tremors. Patient was taking Imdur and Cardizem together. Patient is been having difficult time managing blood pressure and heart rate at home. Patient is also been having intermittent lightheaded dizziness and near syncopal episodes. Patient was then taken off the Cardizem and now is strictly on the Inderal only. The Inderal 60 mg dose is helping with patient's tremors at home, Dr. Bhagat was hoping patient will stay on this. She is sending patient in for cardiac evaluation, some IV fluids, and if nothing acute is found, to discharge patient home with being on 60 mg of Inderal propranolol and 60 mg of Cardizem instead of 120 mg. Patient has a caregiver at bedside. Patient's caregiver is at home with the patient 5 days a week. Patient has family and friends to check on her at nighttime, but otherwise patient does live at home. She does use a walker. Patient has significant kyphosis. Patient does have some nausea the last couple days, she is not nauseous at this time. Patient's mouth is dry. Patient states she has not been drinking much water recently. She has no headache or neck pain. No chest pain. Patient has no shortness of breath at this time. Patient looks well, sharp, patient wants to go home. [facility] Medical History History of hypertension History of high cholesterol History of diabetes mellitus, type II Medication induced coagulopathy Paroxysmal atrial fibrillation Breast cancer Essential hypertension Chronic pain Irregular heart beat Hyponatremia with extracellular fluid depletion Loss of hearing Wears glasses Wears partial dentures Cancer Anxiety History of steroid therapy Thyroid disease Uses wheelchair Bladder disease History of renal disease High cholesterol Easy bruising Back pain Injury of head and neck Syncope Dietary restriction Constipation Heartburn Pneumonia Shortness of breath on exertion Leg cramps History of pain when walking History of edema History of stress test History of echocardiogram Cardiology follow-up encounter History of CHF (congestive heart failure) History of irregular heartbeat Pain Avascular necrosis of bone of hip Osteoporosis Coronary artery disease Vitamin D deficiency Transaminitis Valvular heart disease Chronic constipation Diabetes mellitus, type II Carotid stenosis, bilateral Essential hypertension 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 Bilateral carotid bruits Dizziness Carotid artery stenosis Depression Hypothyroidism Home Medications ?Medication ?Instructions ?Recorded ?Last Taken ?Type folic acid 1 mg tablet 1 mg PO DAILY Supplement 04/15/22 10/10/23 History cholecalciferol (vitamin D3) 25 25 mcg PO DAILY SUPPLEMENT 02/02/23 10/10/23 History mcg (1,000 unit) tablet citalopram 20 mg tablet 10 mg PO DAILY DEPRESSION 02/02/23 10/10/23 History insulin glargine 100 unit/mL (3 8 unit subcut DAILY Diabetes 02/02/23 Unknown History mL) subcutaneous pen (Lantus Solostar U-100 Insulin) insulin lispro 100 unit/mL 2 unit subcut TID DM 02/02/23 10/11/23 History subcutaneous pen (Humalog KwikPen (U-100) Insulin) tramadol 50 mg tablet 50 mg PO TID PRN pain 02/02/23 Unknown History linagliptin 5 mg tablet 5 mg PO DAILY DIABETES 05/20/23 10/10/23 History nystatin 100,000 unit/gram topical 1 applic topical BID PRN rash 09/14/23 Unknown History powder ([facility]) sennosides 8.6 mg-docusate sodium 2 tab PO DAILY PRN CONSTIPATION 09/14/23 10/10/23 History 50 mg tablet (Stool Softener-Stimulant Laxative) aspirin 81 mg chewable tablet 81 mg PO BREAKFAST 90 days #90 tabs 10/13/23 Unknown Rx rosuvastatin 20 mg tablet (Crestor) 20 mg PO DAILY 90 days #90 tabs 10/13/23 Unknown Rx ibandronate 150 mg tablet 150 mg PO QMONTH 11/15/23 Unknown History losartan 100 mg tablet 100 mg PO DAILY BLOOD PRESSURE #90 02/14/24 Unknown Rx tabs apixaban 2.5 mg tablet (Eliquis) 2.5 mg PO BID #60 TABLETS 02/22/24 Unknown Rx furosemide 20 mg tablet (Lasix) 20 mg PO DAILY 03/16/24 Unknown History levothyroxine 88 mcg tablet 88 mcg PO DAILY 07/27/24 Unknown History (Synthroid) lubiprostone 8 mcg capsule 8 mcg PO BID 07/27/24 Unknown History propranolol 60 mg capsule,24 60 mg PO .COMPLEX 10/19/24 Unknown History hr,extended release (Inderal LA) diltiazem HCl 60 mg tablet 60 mg PO .once 14 days #14 tabs 11/03/24 Unknown Rx (Cardizem) Allergy/AdvReac Type Severity Reaction Status Date / Time neomycin (Neomycin) Allergy Severe Shortness Verified 11/03/24 14:03 of breath Tetracyclines Allergy Severe Anaphylaxis Verified 11/03/24 14:03 metoprolol Allergy Intermediate Bradycardia Verified 11/03/24 14:03 flecainide Allergy bradycardia Verified 11/03/24 14:03 in combo with Metoprolol metformin AdvReac Severe Rash Verified 11/03/24 14:03 Sulfa (Sulfonamide AdvReac Constipatio Verified 11/03/24 14:03 Antibiotics) n Family History Mother Thyroid disorder Father Alzheimer disease Surgical History History of lumpectomy of left breast (~12/2022) S/P breast biopsy, left (~10/2022) History of right hip replacement S/P total right hip arthroplasty History of cardiac catheterization Hx of colonoscopy History of foot surgery History of tonsillectomy and adenoidectomy History of thyroidectomy History of left heart catheterization (12/28/14) Social History household members: none Smoking Status: Former smoker how long ago did patient quit smokin years ago alcohol intake: current alcohol intake frequency: a few times a month Alcohol type: wine substance use type: does not use caffeine: Yes Type: coffee Number of servings: 2 ROS ROS ED ROS Narrative REVIEW OF SYSTEMS: Unless otherwise stated in this report the patient's positive and negative responses for review of systems for constitutional, eyes, ENT, cardiovascular, respiratory, gastrointestinal, neurological, , musculoskeletal, and integument systems and related systems to the presenting problem are either stated in the history of present illness or were not pertinent or were negative for the symptoms and/or complaints related to the presenting medical problem. EXAM Physical Exam Narrative Exam Narrative: Vital signs reviewed and patient is not hypoxic. General: The patient appears well and in no apparent distress. Patient is resting comfortably on cart. Not toxic, lethargic, or listless. Patient has kyphosis noted of the cervical and thoracic spine, this is chronic. Skin: Warm, dry, no pallor noted. There is no rash noted. Head: Normocephalic, atraumatic Eye: Normal conjunctiva, no drainage, EOMI. PERRL. Ears, Nose, Mouth, and Throat: oral mucosa is moist. Nares patent. Mouth without vesicles. Cardiovascular: Irregular irregular Rate and Rhythm, no murmurs, gallops, or rubs Respiratory: Patient is in no distress, no accessory muscle use, lungs are clear to auscultation, no wheezing, rales or rhonchi, slight decreased breath sounds bilateral, equal, Back: non-tender, no CVA tenderness bilaterally to percussion. NO CTLS midline or paraspinal tenderness to palpation. GI: Soft, no tenderness to palpation, no masses appreciated. No rebound, guarding, or rigidity noted. Musculoskeletal: The patient has full range of motion of all extremities and joints with no difficulty. Patient has no motor, no sensory deficits. No edema or swelling to upper or lower extremities. Neurological: A&O x4, normal speech, no focal neurological deficits. Psychiatric: Cooperative Const Vital Signs: 11/03/24 14:01 11/03/24 14:22 11/03/24 15:01 Temperature 98.2 F Temperature Source Oral Pulse Rate 62 102 H Respiratory Rate 16 18 Blood Pressure 160/79 H 181/98 H Blood Pressure Mean 106 125 Pulse Ox 98 95 97 Oxygen Delivery Method Room Air Room Air Room Air MDM MDM MDM Narrative Medical decision making narrative: Patient's heart rate was in the 60s when she initially checked in triage. When patient had an EKG her heart rate was in the low 100s. When I reevaluated patient as per CBC was back in discussed that she had not taken her propranolol today, heart rate was in the 70s. Patient was given her dose of propranolol and her dose of Cardizem 60 mg a day as recommended by her PCP. Patient electrolytes, lab work shows no other significant findings. Patient was given a 500 cc bolus to help with hydration which did help her feel better. Patient was given 2-week prescription of Cardizem 60 mg tablet that she is to start taking daily along with the 60 mg tablet of the propranolol which she is already taking. Caregiver and patient understand the instructions very clearly. Patient is very happy to go home, she does not want to be in the hospital, no questions discharge. Patient looks well. Patient has not been tachycardic in A-fib RVR while she has been in the ER for any length of time. Lab Data Attestation: I reviewed the patient's lab results. Labs: Laboratory Results - last 24 hr 11/03/24 14:45 WBC 6.0 RBC 4.87 Hgb 13.8 Hct 43.1 MCV 88.5 MCH 28.3 MCHC 32.0 RDW Std Deviation 44.2 H RDW Coeff of Obed 13.7 Plt Count 185 MPV 10.5 Immature Gran % (Auto) 0.300 Neut % (Auto) 65.8 Lymph % (Auto) 17.8 L Reeves % (Auto) 9.2 Eos % (Auto) 5.7 H Baso % (Auto) 1.2 H Absolute Neuts (auto) 4.0 Absolute Lymphs (auto) 1.07 Nucleated RBC % 0 Sodium 140 Potassium 3.5 Chloride 106 Carbon Dioxide 27.0 Anion Gap 7 BUN 22 H Creatinine 0.72 Estim Creat Clear Calc 36.26 Est GFR (MDRD) Af Amer 99 Est GFR (MDRD) Non-Af 82 BUN/Creatinine Ratio 30.5 H Glucose 202 H Calcium 9.6 Magnesium 2.0 Radiography Chest X-Ray - ED: 2 View and Read by ED Physician (Chest x-ray shows no acute cardiopulmonary disease, no filtrate, no effusion.) Diagnostic Testing: Clinical Impression(s) from Imaging Studies Chest X-Ray 11/03/24 14:55 IMPRESSION: No significant interval change. Electronically Signed: Margie Garrett MD at 15:09 EST , EKG Initial EKG: Attestation: I personally reviewed and interpreted this EKG as follows: (EKG interpretation. Irregular irregular rhythm at 115 beats a minute. Normal axis deviation. Artifact noted, QTc of 456. EKG reading left anterior fascicular block.) Discharge Plan Triage Chief Complaint: Palpitations ED Provider: Scooby Cameron Dx/Rx/DC Orders Clinical Impression: Atrial fibrillation, Mild dehydration, Dyspnea Instructions: ED AFIB, ED Dehydration (Adult), ED Dyspnea Prescriptions: New diltiazem HCl [Cardizem] 60 mg tablet 60 mg PO .once 14 Days Qty: 14 0RF No Action tramadol 50 mg tablet 50 mg PO TID PRN (Reason: pain) Patient Comments: 3 times a day AM, 2 pills at lunch, after supper cholecalciferol (vitamin D3) 25 mcg (1,000 unit) tablet 25 mcg PO DAILY citalopram 20 mg tablet 10 mg PO DAILY linagliptin 5 mg tablet 5 mg PO DAILY sennosides-docusate sodium [Stool Softener-Stimulant Laxat] 8.6-50 mg tablet 2 tab PO DAILY PRN (Reason: CONSTIPATION) Patient Comments: 1-2 tabs as needed ibandronate 150 mg tablet 150 mg PO QMONTH furosemide [Lasix] 20 mg tablet 20 mg PO DAILY levothyroxine [Synthroid] 88 mcg tablet 88 mcg PO DAILY lubiprostone 8 mcg capsule 8 mcg PO BID folic acid 1 mg Tablet 1 mg PO DAILY insulin glargine [Lantus Solostar U-100 Insulin] 100 unit/mL (3 mL) insulin pen 8 unit SUBCUT DAILY Patient Comments: pt states she takes 7 units insulin lispro [Humalog KwikPen Insulin] 100 unit/mL insulin pen 2 unit SUBCUT TID Patient Comments: inject 2 units three times daily before meals nystatin [Nyamyc] 100,000 unit/gram powder 1 applic topical BID PRN (Reason: rash) aspirin 81 mg Tablet,Chewable 81 mg PO BREAKFAST 90 Days Qty: 90 0RF rosuvastatin [Crestor] 20 mg tablet 20 mg PO DAILY 90 Days Qty: 90 3RF losartan 100 mg tablet 100 mg PO DAILY Qty: 90 3RF Eliquis 2.5 mg tablet 2.5 mg PO BID Qty: 60 11RF propranolol [Inderal LA] 60 mg capsule,extended release 24 hr 60 mg PO .COMPLEX Rx Instructions: 60 mg orally as directed by neurology, see clinical note 10/19/24; Primary Care Provider: Karla Bhagat Referrals: Karla Bhagat MD [Primary Care Provider] - Print Language: Gibralt[place] Disposition Disposition: Home, Self Care
--- NOTE | 2024-11-03 14:55 | RAD_ITS ---
HISTORY: chest pain. TECHNIQUE: XR Chest 1 View. COMPARISON: 10/10/2023. FINDINGS: CARDIOMEDIASTINAL BORDERS: Cardiac silhouette again mildly enlarged. Mediastinal contour unchanged with calcification of the aorta. LUNGS: Chronic left basilar atelectasis or scarring. PLEURA: No pleural effusion or pneumothorax seen. OSSEOUS STRUCTURES: Degenerative change and moderate scoliosis. RAD/Chest 1 View (Portable) IMPRESSION: No significant interval change. Electronically Signed: Margie Garrett MD at 15:09 EST ,
[2024-11-03 15:01] VITALS: BP 181/98; PULSE 102; RESP 18; O2SAT 97
[2024-11-03 15:05] LABS: Anion Gap 7 (5-15); BUN 22 mg/dL (7-18); BUN/Creat Ratio 30.5 RATIO (10-20); Calcium,Total 9.6 mg/dL (8.5-10.1); Chloride 106 mmol/L (98-107); Creatinine, Serum 0.72 mg/dL (0.55-1.02); EST Glomerular Filtration Rate 82 mL/min (>60); Est Glom Filt Rate - Afr Amer 99 mL/min (>60); Estimated Creatinine Clearance 36.26 ml/min; Glucose 202 mg/dL (74-106); Potassium 3.5 mmol/L (3.5-5.1); Sodium Level 140 mmol/L (136-145)
--- NOTE | 2024-11-03 15:51 | ED.RN ---
1540: PHARMACY CALLED FOR MEDS NOT IN DEPARTMENT. RESPONSE, WE WILL SEND THEM.
[2024-11-03 16:02] VITALS: BP 178/106; PULSE 105; RESP 16; TEMP 37.1; O2SAT 96
[2024-11-03] MEDS: dilTIAZem 60 MG Tablet PO (16:04)
[2024-11-03] MEDS: Propranolol LA 60 MG Capsule PO (16:04)
--- NOTE | 2024-11-03 16:23 | ED.RN ---
PER DEREJE DENSON TO DISCHARGE PATIENT WITH BP 178/106, D/T MISSED DOSE OF HOME BP MEDICATIONS. PT INSTRUCTED TO MAKE HOME MEDS PRESCRIBED.
== END 2024-11-03 16:25 | disposition home or self-care (01) ==
PROVIDERS: Emergency Provider Emergency Medicine; PCP Internal Medicine; Visit Provider Emergency Medicine
DX: I48.91 Unspecified atrial fibrillation (principal); I11.0 Hypertensive heart disease with heart failure; I50.9 Heart failure, unspecified; E11.9 Type 2 diabetes mellitus without complications; R06.00 Dyspnea, unspecified; E86.0 Dehydration; I25.10 Atherosclerotic heart disease of native coronary artery without angina pectoris; Z87.891 Personal history of nicotine dependence
CPT/HCPCS: 71045; 80048; 83735; 85025; 93005; 96360; 99285; A4216

== ENCOUNTER 2024-12-02 19:49 | Emergency (ER) | payer MEDICARE, SELFPAY ==
[2024-12-02 19:51] VITALS: BP 166/94; PULSE 80; RESP 14; TEMP 36.9; O2SAT 97; BMI 21.2
--- NOTE | 2024-12-02 20:20 | CT_ITS ---
EXAM: CT HEAD WITHOUT INTRAVENOUS CONTRAST CLINICAL INDICATION: fall/injury TECHNIQUE: Multiple axial images were obtained of the head without intravenous contrast. This CT exam was performed using one or more of the following dose reduction techniques: automated exposure control, adjustment of the mA and/or kV according to patient size, and/or use of iterative reconstruction technique. COMPARISON: 10/10/2023 FINDINGS: BRAIN AND EXTRA-AXIAL SPACES: There is mild enlargement of ventricular system and cortical sulci. There is hypoattenuation in the periventricular white matter. No intra- or extra-axial hemorrhage. No evidence of acute infarct. No intracranial mass or mass effect. There is preservation of the gilmore/white matter interface. Posterior fossa structures are unremarkable. Basal cisterns are patent. BONES/JOINTS: Unremarkable. No discrete lytic or blastic abnormalities. SINUSES: Unremarkable as visualized. Clear. MASTOID AIR CELLS: Unremarkable. Clear. ORBITS: Visualized globes, extraocular muscles, optic nerves and retrobulbar fat appear unremarkable. CT/Brain/Head without Contrast IMPRESSION: No acute intracranial abnormality. There has been no significant change from the reference exam. Electronically Signed: Alex Sanders MD at 21:27 EST ,
--- NOTE | 2024-12-02 20:21 | EDS_ITS ---
HPI HPI - Fall History of Present Illness Chief Complaint: Fall Informant: patient and EMS Narrative Narrative: 84-year-old female states she was going up to tall steps at her house and lost her balance/stumbled without systemic symptoms or dizziness, falling to the right against the floor noncarpeted, hitting her forehead. No loss of consciousness, nausea, vomiting but lots of pain where she hit her scalp and forehead. No vision changes or loss of vision. Mild headache. She is on Eliquis because of A-fib. She denies any other injury. [facility] Medical History History of hypertension History of high cholesterol History of diabetes mellitus, type II Medication induced coagulopathy Paroxysmal atrial fibrillation Breast cancer Essential hypertension Chronic pain Irregular heart beat Hyponatremia with extracellular fluid depletion Loss of hearing Wears glasses Wears partial dentures Cancer Anxiety History of steroid therapy Thyroid disease Uses wheelchair Bladder disease History of renal disease High cholesterol Easy bruising Back pain Injury of head and neck Syncope Dietary restriction Constipation Heartburn Pneumonia Shortness of breath on exertion Leg cramps History of pain when walking History of edema History of stress test History of echocardiogram Cardiology follow-up encounter History of CHF (congestive heart failure) History of irregular heartbeat Pain Avascular necrosis of bone of hip Osteoporosis Coronary artery disease Vitamin D deficiency Transaminitis Valvular heart disease Chronic constipation Diabetes mellitus, type II Carotid stenosis, bilateral Essential hypertension 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 Bilateral carotid bruits Dizziness Carotid artery stenosis Depression Hypothyroidism Home Medications ?Medication ?Instructions ?Recorded ?Last Taken ?Type folic acid 1 mg tablet 1 mg PO DAILY Supplement 04/15/22 10/10/23 History cholecalciferol (vitamin D3) 25 25 mcg PO DAILY SUPPLEMENT 02/02/23 10/10/23 History mcg (1,000 unit) tablet citalopram 20 mg tablet 10 mg PO DAILY DEPRESSION 02/02/23 10/10/23 History insulin glargine 100 unit/mL (3 8 unit subcut DAILY Diabetes 02/02/23 Unknown History mL) subcutaneous pen (Lantus Solostar U-100 Insulin) insulin lispro 100 unit/mL 2 unit subcut TID DM 02/02/23 10/11/23 History subcutaneous pen (Humalog KwikPen (U-100) Insulin) tramadol 50 mg tablet 50 mg PO TID PRN pain 02/02/23 Unknown History linagliptin 5 mg tablet 5 mg PO DAILY DIABETES 05/20/23 10/10/23 History nystatin 100,000 unit/gram topical 1 applic topical BID PRN rash 09/14/23 Unknown History powder ([facility]) sennosides 8.6 mg-docusate sodium 2 tab PO DAILY PRN CONSTIPATION 09/14/23 10/10/23 History 50 mg tablet (Stool Softener-Stimulant Laxative) aspirin 81 mg chewable tablet 81 mg PO BREAKFAST 90 days #90 tabs 10/13/23 Unknown Rx rosuvastatin 20 mg tablet (Crestor) 20 mg PO DAILY 90 days #90 tabs 10/13/23 Unknown Rx ibandronate 150 mg tablet 150 mg PO QMONTH 11/15/23 Unknown History losartan 100 mg tablet 100 mg PO DAILY BLOOD PRESSURE #90 02/14/24 Unknown Rx tabs apixaban 2.5 mg tablet (Eliquis) 2.5 mg PO BID #60 TABLETS 02/22/24 Unknown Rx furosemide 20 mg tablet (Lasix) 20 mg PO DAILY 03/16/24 Unknown History levothyroxine 88 mcg tablet 88 mcg PO DAILY 07/27/24 Unknown History (Synthroid) lubiprostone 8 mcg capsule 8 mcg PO BID 07/27/24 Unknown History propranolol 60 mg capsule,24 60 mg PO .COMPLEX 10/19/24 Unknown History hr,extended release (Inderal LA) diltiazem HCl 60 mg tablet 60 mg PO .once 14 days #14 tabs 11/03/24 Unknown Rx (Cardizem) Allergy/AdvReac Type Severity Reaction Status Date / Time neomycin (Neomycin) Allergy Severe Shortness Verified 12/02/24 19:57 of breath Tetracyclines Allergy Severe Anaphylaxis Verified 12/02/24 19:57 metoprolol Allergy Intermediate Bradycardia Verified 12/02/24 19:57 flecainide Allergy bradycardia Verified 12/02/24 19:57 in combo with Metoprolol metformin AdvReac Severe Rash Verified 12/02/24 19:57 Sulfa (Sulfonamide AdvReac Constipatio Verified 12/02/24 19:57 Antibiotics) n Family History (Reviewed 07/27/24 @ 13:48 by Tyesha Spencer CLINICAL RESEARCH ADMINISTRATOR, CLINICAL RESEARCH ADMINISTRATOR-C) Mother Thyroid disorder Father Alzheimer disease Surgical History (Reviewed 07/27/24 @ 13:48 by Tyesha Spencer CLINICAL RESEARCH ADMINISTRATOR, CLINICAL RESEARCH ADMINISTRATOR-C) History of lumpectomy of left breast (~12/2022) S/P breast biopsy, left (~10/2022) History of right hip replacement S/P total right hip arthroplasty History of cardiac catheterization Hx of colonoscopy History of foot surgery History of tonsillectomy and adenoidectomy History of thyroidectomy History of left heart catheterization (12/28/14) Social History (Reviewed 07/27/24 @ 13:48 by Tyesha Spencer CLINICAL RESEARCH ADMINISTRATOR, CLINICAL RESEARCH ADMINISTRATOR-C) household members: none Smoking Status: Former smoker how long ago did patient quit smokin years ago alcohol intake: current alcohol intake frequency: a few times a month Alcohol type: wine substance use type: does not use caffeine: Yes Type: coffee Number of servings: 2 ROS ROS ED Constitutional Constitutional ED: Denies chills or fever(s) Eyes Eyes: Denies change in vision or diplopia ENT ENT ED: Denies ear pain, epistaxis, facial pain or rhinorrhea Cardiovascular Cardiovascular: Denies chest pain or palpitations Respiratory/Chest Respiratory/Chest: Denies cough or dyspnea Gastrointestinal Gastrointestinal: Denies abdominal pain, diarrhea, melena, nausea or vomiting Genitourinary Genitourinary ED: Denies dysuria or hematuria Musculoskeletal Musculoskeletal: Denies back pain, extremity pain or neck pain Integumentary Denies abscess, Abrasions, laceration or rash Neurologic Neurologic: Reports headache(s); Denies confusion, paresthesias or weakness EXAM Physical Exam Const Vital Signs: 12/02/24 19:51 12/02/24 19:59 12/02/24 20:50 Temperature 98.4 F Temperature Source Oral Pulse Rate 80 72 Respiratory Rate 14 19 H Respiratory Depth Normal Respiratory Pattern Normal Blood Pressure 166/94 H 164/104 H Blood Pressure Mean 118 124 Pulse Ox 97 96 Oxygen Delivery Method Room Air Room Air Room Air 12/02/24 21:00 Temperature Temperature Source Pulse Rate 74 Respiratory Rate 19 H Respiratory Depth Respiratory Pattern Blood Pressure 164/104 H Blood Pressure Mean 124 Pulse Ox 96 Oxygen Delivery Method Room Air Positive well nourished and well developed General Appearance ED: well developed and NAD HEENT Reports TM's clear and nasal mucous membranes and turbinates normal HEENT Narrative: There is a small contusion at the right druze of the forehead, her zygomatic arch is a little bit tender but there is no instability of the midface and there is no signs of trauma to the zygomatic arch. There is a small hematoma frontoparietal scalp. There is no crepitance or depression. No Hope sign no raccoon eyes no hemotympanum or CSF otorhinorrhea. trauma Face and Sinus: Negative for facial tenderness Tympanic Membrane ED: Yes TM's clear Eyes PERRL and EOMs intact bilaterally Visual Acuity: other Other Details: no entrapment or pain with extraocular movements Neck full ROM and supple Neck Narrative: Very kyphotic General: Negative for tenderness Chest Wall inspection of chest normal and palpation of chest normal Chest Narrative: Tender in the left posterior axillary line near the axilla and the ribs. No crepitance or subcutaneous emphysema no splinting with deep inspiration. Chest: symmetrical chest wall rise and tenderness; Negative for crepitus Resp normal respiratory effort and clear to auscultation bilaterally Percussion: other equal BS bilat GI normal to inspection, nondistended, normoactive bowel sounds, soft to palpation and non-tender Back/Spine normal ROM Cervical Spine: Negative for cervical spine tenderness Thoracic Spine / Upper Back: Negative for thoracic spinal tenderness Lumbar Spine / Lower Back: Negative for lumbar spinal tenderness Extremity normal to inspection and full ROM General Extremety ED: Negative for tenderness Neuro oriented x3, CN's II-XII intact bilaterally, moves all extremities, no focal motor deficits and no sensory deficits noted Augustina Coma Scale: document GCS findings Spontaneous Obeys Commands Oriented 15 Sensorium / Orientation: awake and alert Psych mental status grossly normal and thought process normal Skin no wounds Lesions: no lesions Rashes: no rashes MDM MDM MDM Narrative Medical decision making narrative: Patient was sent to CT for head CT, I reviewed the images and the report which I agree with, it is negative for skull fracture or acute intracranial hemorrhage/injury. When I squeezed her chest wall to evaluate for thoracic i njury, she had some pain in the left axilla and the rib cage there, and although she has no pain with deep inspiration, I obtained some x-rays of the left ribs, 4 views including PA chest interpretation shows no acute displaced rib fracture or pneumothorax. Radiology in agreement. Patient declines an offer for Tylenol she was given an ice pack, she is comfortable discharge home and reassured. Radiography Diagnostic Testing: Clinical Impression(s) from Imaging Studies Brain CT 12/02/24 20:20 IMPRESSION: No acute intracranial abnormality. There has been no significant change from the reference exam. Electronically Signed: Alex Sanders MD at 21:27 EST , Ribs w/Chest X-Ray 12/02/24 20:50 IMPRESSION: No acute findings in the chest or left ribs. Electronically Signed: Alex Sanders MD at 21:35 EST , Discharge Plan Triage Chief Complaint: Fall ED Provider: Santy Bowden Dx/Rx/DC Orders Clinical Impression: Closed head injury without loss of consciousness, Fall from slip, trip, or stumble, Contusion of rib on left side Instructions: ED Head Injury (Adult) Prescriptions: No Action tramadol 50 mg tablet 50 mg PO TID PRN (Reason: pain) Patient Comments: 3 times a day AM, 2 pills at lunch, after supper cholecalciferol (vitamin D3) 25 mcg (1,000 unit) tablet 25 mcg PO DAILY citalopram 20 mg tablet 10 mg PO DAILY linagliptin 5 mg tablet 5 mg PO DAILY sennosides-docusate sodium [Stool Softener-Stimulant Laxat] 8.6-50 mg tablet 2 tab PO DAILY PRN (Reason: CONSTIPATION) Patient Comments: 1-2 tabs as needed ibandronate 150 mg tablet 150 mg PO QMONTH furosemide [Lasix] 20 mg tablet 20 mg PO DAILY levothyroxine [Synthroid] 88 mcg tablet 88 mcg PO DAILY lubiprostone 8 mcg capsule 8 mcg PO BID folic acid 1 mg Tablet 1 mg PO DAILY insulin glargine [Lantus Solostar U-100 Insulin] 100 unit/mL (3 mL) insulin pen 8 unit SUBCUT DAILY Patient Comments: pt states she takes 7 units insulin lispro [Humalog KwikPen Insulin] 100 unit/mL insulin pen 2 unit SUBCUT TID Patient Comments: inject 2 units three times daily before meals nystatin [Nyamyc] 100,000 unit/gram powder 1 applic topical BID PRN (Reason: rash) aspirin 81 mg Tablet,Chewable 81 mg PO BREAKFAST 90 Days Qty: 90 0RF rosuvastatin [Crestor] 20 mg tablet 20 mg PO DAILY 90 Days Qty: 90 3RF diltiazem HCl [Cardizem] 60 mg tablet 60 mg PO .once 14 Days Qty: 14 0RF losartan 100 mg tablet 100 mg PO DAILY Qty: 90 3RF Eliquis 2.5 mg tablet 2.5 mg PO BID Qty: 60 11RF propranolol [Inderal LA] 60 mg capsule,extended release 24 hr 60 mg PO .COMPLEX Rx Instructions: 60 mg orally as directed by neurology, see clinical note 10/19/24; Primary Care Provider: Karla Bhagat Referrals: Karla Bhagat MD [Primary Care Provider] - As Needed Print Language: Faroese Disposition Disposition: Home, Self Care
[2024-12-02 20:50] VITALS: BP 164/104; PULSE 72; RESP 19; O2SAT 96
--- NOTE | 2024-12-02 20:50 | RAD_ITS ---
EXAM: XR LEFT RIBS AND AP CHEST, 3 OR MORE VIEWS CLINICAL INDICATION: pain/fall TECHNIQUE: Frontal and oblique views of the left ribs and frontal view of the chest. COMPARISON: No relevant prior studies available. FINDINGS: LUNGS AND PLEURAL SPACES: Unremarkable. No consolidation or edema. No pneumothorax. No effusion. HEART: Unremarkable. Cardiac silhouette not enlarged. MEDIASTINUM: Central airways and mediastinal contour are unremarkable. BONES/JOINTS: There is severe curvature of the thoracic or lumbar spine. No evidence of displaced rib fractures. RAD/Ribs Uni Min 3V w/PA Chest IMPRESSION: No acute findings in the chest or left ribs. Electronically Signed: Alex Sanders MD at 21:35 EST ,
[2024-12-02 21:00] VITALS: BP 164/104; PULSE 74; RESP 19; O2SAT 96
[2024-12-02 22:00] VITALS: PULSE 68; RESP 16; O2SAT 95
[2024-12-02 22:20] VITALS: BP 164/104; PULSE 68; RESP 16; TEMP 36.9; O2SAT 95
== END 2024-12-02 22:21 | disposition home or self-care (01) ==
PROVIDERS: Emergency Provider Emergency Medicine; PCP Internal Medicine; Visit Provider Emergency Medicine
DX: S09.90XA Unspecified injury of head, initial encounter (principal); I11.0 Hypertensive heart disease with heart failure; I50.9 Heart failure, unspecified; I48.91 Unspecified atrial fibrillation; E11.9 Type 2 diabetes mellitus without complications; I25.10 Atherosclerotic heart disease of native coronary artery without angina pectoris; Z87.891 Personal history of nicotine dependence; W19.XXXA Unspecified fall, initial encounter
CPT/HCPCS: 70450; 71101; 99285

== ENCOUNTER 2025-01-28 05:55 | Emergency (ER) | payer MEDICARE, SELFPAY ==
[2025-01-28] VITALS (12 sets, daily range): BP systolic 164–194; BP diastolic 94–115; PULSE 92–128; RESP 12–24; TEMP 36.7–37.1; O2SAT 96–100; BMI 23.4; BMI 18.1
--- NOTE | 2025-01-28 06:02 | EKG12_ITS ---
Test Reason : POSS STROKE Blood Pressure : */* mmHG Vent. Rate : 101 BPM Atrial Rate : * BPM P-R Int : * ms QRS Dur : 82 ms QT Int : 368 ms P-R-T Axes : * 187 45 degrees QTcB Int : 477 ms Atrial fibrillation with rapid ventricular response with a competing junctional pacemaker Indeterminate axis Septal infarct ST & T wave abnormality, consider anterior ischemia Abnormal ECG Confirmed by Ramin Iglesias ([id number]), editorial project manager CELESTE RODRIGUEZ ([id number]) on 01/30/2025 10:39:37 AM Referred By: Confirmed By: Ramin Iglesias
--- NOTE | 2025-01-28 06:05 | CT_ITS ---
PROCEDURE: STROKE BRAIN/HEAD WITHOUT CONT REASON FOR EXAM: Neuro deficit, acute, stroke suspected TECHNIQUE: Noncontrast head CT with coronal and sagittal reformatted images COMPARISON: 12/02/2024 FINDINGS: Off axis imaging. No intracranial hemorrhage or midline shift. There is hyperdense appearance of the M2 branch of the right MCA within the sylvian fissure for example axial 20 coronal 28 and sagittal 23 most concerning for intra-arterial thrombus. There is associated loss of gilmore-white differentiation and sulcal effacement at the right frontoparietal convexity axial 31 measuring around 5-5-1/2 cm and around 2 cm at the anterior right frontal lobe axial 25 concerning for areas of infarct. No hydrocephalus. Chronic and involutional changes again noted. 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 No intracranial hemorrhage or midline shift. Findings discussed verbally by phone by myself with Dr. Bowden at 6:20 a.m. on 01 28 2025 One or more dose reduction techniques were used (e.g., Automated exposure contr ol, adjustment of the mA and/or kV according to patient size, use of iterative reconstruction technique). Reading Location: [id number]
--- NOTE | 2025-01-28 06:07 | ED.VIS.STROK ---
HPI History of Present Illness Chief Complaint: Stroke Alert Informant: patient, EMS and PCP (Called before patient arrival) Narrative Narrative: Patient noticed this morning to be weak on the left side at [facility]. Last known well 0, arrived here around 6 AM. She recently has had some falls and therefore was taken off of Eliquis which she was on for chronic atrial fibrillation. [facility] Medical History History of hypertension History of high cholesterol History of diabetes mellitus, type II Medication induced coagulopathy Paroxysmal atrial fibrillation Breast cancer Essential hypertension Chronic pain Irregular heart beat Hyponatremia with extracellular fluid depletion Loss of hearing Wears glasses Wears partial dentures Cancer Anxiety History of steroid therapy Thyroid disease Uses wheelchair Bladder disease History of renal disease High cholesterol Easy bruising Back pain Injury of head and neck Syncope Dietary restriction Constipation Heartburn Pneumonia Shortness of breath on exertion Leg cramps History of pain when walking History of edema History of stress test History of echocardiogram Cardiology follow-up encounter History of CHF (congestive heart failure) History of irregular heartbeat Pain Avascular necrosis of bone of hip Osteoporosis Coronary artery disease Vitamin D deficiency Transaminitis Valvular heart disease Chronic constipation Diabetes mellitus, type II Carotid stenosis, bilateral Essential hypertension 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 Bilateral carotid bruits Dizziness Carotid artery stenosis Depression Hypothyroidism Home Medications ?Medication ?Instructions ?Recorded ?Last Taken ?Type folic acid 1 mg tablet 1 mg PO DAILY Supplement 04/15/22 10/10/23 History cholecalciferol (vitamin D3) 25 25 mcg PO DAILY SUPPLEMENT 02/02/23 10/10/23 History mcg (1,000 unit) tablet citalopram 20 mg tablet 10 mg PO DAILY DEPRESSION 02/02/23 10/10/23 History insulin glargine 100 unit/mL (3 8 unit subcut DAILY Diabetes 02/02/23 Unknown History mL) subcutaneous pen (Lantus Solostar U-100 Insulin) insulin lispro 100 unit/mL 2 unit subcut TID DM 02/02/23 10/11/23 History subcutaneous pen (Humalog KwikPen (U-100) Insulin) linagliptin 5 mg tablet 5 mg PO DAILY DIABETES 05/20/23 10/10/23 History sennosides 8.6 mg-docusate sodium 2 tab PO DAILY PRN CONSTIPATION 09/14/23 10/10/23 History 50 mg tablet (Stool Softener-Stimulant Laxative) aspirin 81 mg chewable tablet 81 mg PO BREAKFAST 90 days #90 tabs 10/13/23 Unknown Rx rosuvastatin 20 mg tablet (Crestor) 20 mg PO DAILY 90 days #90 tabs 10/13/23 Unknown Rx ibandronate 150 mg tablet 150 mg PO QMONTH 11/15/23 Unknown History losartan 100 mg tablet 100 mg PO DAILY BLOOD PRESSURE #90 02/14/24 Unknown Rx tabs furosemide 20 mg tablet (Lasix) 20 mg PO DAILY 03/16/24 Unknown History levothyroxine 88 mcg tablet 88 mcg PO DAILY 07/27/24 Unknown History (Synthroid) lubiprostone 8 mcg capsule 8 mcg PO BID 07/27/24 Unknown History propranolol 60 mg capsule,24 60 mg PO .COMPLEX 10/19/24 Unknown History hr,extended release (Inderal LA) tramadol 50 mg tablet 50 mg PO TID pain 01/26/25 Unknown History diltiazem HCl 120 mg tablet 120 mg PO 01/28/25 Unknown History Allergy/AdvReac Type Severity Reaction Status Date / Time neomycin (Neomycin) Allergy Severe Shortness Verified 01/28/25 06:23 of breath Tetracyclines Allergy Severe Anaphylaxis Verified 01/28/25 06:23 metoprolol Allergy Intermediate Bradycardia Verified 01/28/25 06:23 flecainide Allergy bradycardia Verified 01/28/25 06:23 in combo with Metoprolol metformin AdvReac Severe Rash Verified 01/28/25 06:23 Sulfa (Sulfonamide AdvReac Constipatio Verified 01/28/25 06:23 Antibiotics) n Family History (Reviewed 01/26/25 @ 11:59 by Aaron Wilkerson TERRAZZO WORKER APPRENTICE, TERRAZZO WORKER APPRENTICE-C) Mother Thyroid disorder Father Alzheimer disease Surgical History History of lumpectomy of left breast (~12/2022) S/P breast biopsy, left (~10/2022) History of right hip replacement S/P total right hip arthroplasty History of cardiac catheterization Hx of colonoscopy History of foot surgery History of tonsillectomy and adenoidectomy History of thyroidectomy History of left heart catheterization (12/28/14) Social History household members: none Smoking Status: Former smoker how long ago did patient quit smokin years ago alcohol intake: current alcohol intake frequency: a few times a month Alcohol type: wine substance use type: does not use caffeine: Yes Type: coffee Number of servings: 2 ROS ROS ED Review of Systems ROS Unobtainable: due to mental status Cardiovascular Cardiovascular: Denies chest pain Respiratory/Chest Respiratory/Chest: Denies dyspnea Gastrointestinal Gastrointestinal: Denies abdominal pain or nausea Neurologic Neurologic: Denies headache(s) EXAM Physical Exam Const Vital Signs: 01/28/25 05:56 01/28/25 05:59 01/28/25 06:12 Temperature 98.1 F Temperature Source Temporal Pulse Rate 128 H Respiratory Rate 17 Blood Pressure 164/106 H Blood Pressure Mean 125 Pulse Ox 96 96 Oxygen Delivery Method Room Air Room Air 01/28/25 06:18 01/28/25 06:20 01/28/25 06:38 Temperature Temperature Source Pulse Rate 96 92 112 H Respiratory Rate 14 15 17 Blood Pressure 193/112 H 193/112 H 194/94 H Blood Pressure Mean 139 139 127 Pulse Ox 100 98 98 Oxygen Delivery Method Positive well nourished and well developed General Appearance ED: well developed and NAD HEENT Reports moist mucous membranes normocephalic and atraumatic Eyes PERRL and EOMs intact bilaterally Neck full ROM and supple Resp normal respiratory effort and clear to auscultation bilaterally Cardio Rate: tachycardic Rhythm: abnormal rhythm irregularly irregular GI non-tender and non-distended Auscultation: normoactive bowel sounds Palpation: soft Back/Spine no CVA tenderness General Back: other FROM Extremity normal to inspection General Extremety ED: Negative for edema, pulses abnormal or tenderness General Extremity: Negative for edema or pulses abnormal Neuro CN's II-XII intact bilaterally Neuro Narrative: Limited ability to answer questions. Speech that she does perform is clear. Sensorium / Orientation: awake and alert Psych Psych Narrative: Flat affect Skin no rashes or lesions noted and no wounds NIHSS NIHSS Initial: 1a Level of Consciousness: 0 1b LOC Questions (Score 2 if aphasic/stupor): 2 1c LOC Commands (Only score 1st attempt): 0 2 Best Gaze (If aphasic, use reflexive mvmts.): 1 (Partial gaze palsy that corrects with oculocephalic reflex) 3 Visual: 2 (Complete hemianopia) 4 Facial Palsy: 1 5 Motor Arm Right (UN = amputation/fusion): 1 5 Motor Arm Left: 4 6 Motor Leg Right: 0 6 Motor Leg Left: 2 7 Limb ataxia (Only + if out of proportion): 0 8 Sensory (Aphasia/stupor=0 or 1, coma=2): 2 9 Best Language: 0 10 Dysarthria (mute, coma=2, intubated=UN): 0 11 Extinction and Inattention (only scored if +): 2 Total Score: 17 MDM MDM MDM Narrative Medical decision making narrative: Patient is cleanly alert appears to be protecting her airway, she has a large NIH. I reviewed her noncontrast CT on my interpretation shows no hemorrhage, radiology was in agreement who I spoke with, he is concerned because he sees changes of acute right frontal infarct and what appears to be an M2 MCA sign. EKG shows A-fib with mild RVR around low 100s. Discussed with [facility] stroke neurology, who agrees not a thrombolytic candidate but not able to see CT images at the time. Radiology called back concerning CTA results, patient does indeed have a right M2 segment acute occlusion without hemorrhage. Discussed with son who is comfortable with her going to [facility] for this. He understands that she needs to go to a comprehensive stroke center for evaluation for thrombectomy which does not guarantee that she will have thrombectomy. He understands. We confirmed the patient is DNR CCA no intubation status. Discussed again with stroke neurology. Blood pressure medication orders in place. Arranging transportation. Lab Data Attestation: I reviewed the patient's lab results. Labs: Laboratory Results - last 24 hr 01/28/25 06:13 WBC 6.4 RBC 5.37 Hgb 14.8 Hct 46.5 MCV 86.6 MCH 27.6 MCHC 31.8 L RDW Std Deviation 45.1 H RDW Coeff of Obed 14.3 Plt Count 186 MPV 11.1 Immature Gran % (Auto) 0.500 Neut % (Auto) 46.9 L Lymph % (Auto) 30.3 Wharton % (Auto) 12.6 H Eos % (Auto) 8.0 H Baso % (Auto) 1.7 H Absolute Neuts (auto) 3.0 Absolute Lymphs (auto) 1.94 Nucleated RBC % 0 Radiography Diagnostic Testing: Clinical Impression(s) from Imaging Studies Brain CT 01/28/25 06:05 IMPRESSION: Findings concerning for right MCA intra-arterial thrombus and associated areas of right MCA territory infarct as above. No intracranial hemorrhage or midline shift. Findings discussed verbally by phone by myself with Dr. Bowden at 6:20 a.m. on 01 28 2025 One or more dose reduction techniques were used (e.g., Automated exposure control, adjustment of the mA and/or kV according to patient size, use of iterative reconstruction technique). Reading Location: [facility] Rhythm Strip Rhythm Strip: A-fib Rate: 105 Ectopy: None EKG Initial EKG: Attestation: I personally reviewed and interpreted this EKG as follows: Interpretation: No Acute Injury Pattern, Atrial Fibrillation and Non-Specific ST Changes Management Discussion w/another healthcare provider: Plastic Welding Machine Operator and Radiologist Stroke Documentation Questions Stroke Team Activated: Yes (Prehospital) Was Patient considered for Endovascular Intervention?: Yes-CTA +,PT transferred for further eval of endovascular intervention IV Thrombolytic Administered: No (Timing/LKW) Critical Care Time Critical Care Time: Yes Critical care time (excluding procedures): 30-74 minutes (40 min), Including time spent:, Discussing w/Patient &/or Family/Clothing Designer, Discussing w/Consultants, Arranging Admission or Transfer and Performing Direct Patient Care at Bedside Discharge Plan Triage Chief Complaint: Stroke Alert ED Provider: Santy Bowden Dx/Rx/DC Orders Clinical Impression: Acute ischemic right MCA stroke, Atrial fibrillation Prescriptions: No Action tramadol 50 mg tablet 50 mg PO TID Patient Comments: 3 times a day AM, 2 pills at lunch, after supper cholecalciferol (vitamin D3) 25 mcg (1,000 unit) tablet 25 mcg PO DAILY citalopram 20 mg tablet 10 mg PO DAILY linagliptin 5 mg tablet 5 mg PO DAILY sennosides-docusate sodium [Stool Softener-Stimulant Laxat] 8.6-50 mg tablet 2 tab PO DAILY PRN (Reason: CONSTIPATION) Patient Comments: 1-2 tabs as needed ibandronate 150 mg tablet 150 mg PO QMONTH furosemide [Lasix] 20 mg tablet 20 mg PO DAILY levothyroxine [Synthroid] 88 mcg tablet 88 mcg PO DAILY lubiprostone 8 mcg capsule 8 mcg PO BID folic acid 1 mg Tablet 1 mg PO DAILY insulin glargine [Lantus Solostar U-100 Insulin] 100 unit/mL (3 mL) insulin pen 8 unit SUBCUT DAILY Patient Comments: pt states she takes 7 units insulin lispro [Humalog KwikPen Insulin] 100 unit/mL insulin pen 2 unit SUBCUT TID Patient Comments: inject 2 units three times daily before meals aspirin 81 mg Tablet,Chewable 81 mg PO BREAKFAST 90 Days Qty: 90 0RF rosuvastatin [Crestor] 20 mg tablet 20 mg PO DAILY 90 Days Qty: 90 3RF diltiazem HCl 120 mg tablet 120 mg PO losartan 100 mg tablet 100 mg PO DAILY Qty: 90 3RF propranolol [Inderal LA] 60 mg capsule,extended release 24 hr 60 mg PO .COMPLEX Rx Instructions: 60 mg orally as directed by neurology, see clinical note 10/19/24; Primary Care Provider: Karla Bhagat Referrals: Karla Bhagat MD [Primary Care Provider] - Print Language: Omani Disposition Disposition: Acute Care Hospital Discharge Location: [facility]
--- NOTE | 2025-01-28 06:12 | CT_ITS ---
PROCEDURE: STROKE CTA HEAD AND NECK W/CON REASON FOR EXAM: Neuro deficit, acute, stroke TECHNIQUE: CTA imaging of the head and neck from the aortic arch to the skull vertex with intravenous contrast. 3D reconstructions. CONTRAST: 60 cc COMPARISON: Preceding noncontrast head CT FINDINGS: Aortic Arch: Normal size and branching pattern. No significant atherosclerotic plaque. Brachiocephalic and Subclavians: Unremarkable RIGHT Carotid: Right CCA: Mild soft plaque formation distal common carotid artery without flow significant stenosis for example axial 176. Right ICA: Soft and calcific plaque formation at the right common carotid bifurcation with approximate 50% luminal narrowing. Contrast is seen beyond throughout the undulating right internal carotid artery. Right ECA: Unremarkable. LEFT Carotid: Left CCA: Unremarkable. Left ICA: Calcific plaque formation without flow significant stenosis.. Left ECA: Unremarkable. Vertebrals: Dominant left vertebral artery with the right vertebral artery appearing to end in PICA, anatomic variant. Arise from the subclavians. . RIGHT Vertebral: Unremarkable. LEFT Vertebral: Unremarkable. No intracranial aneurysms or large vascular malformations are identified. Anterior cerebral arteries: Unremarkable. Middle cerebral arteries: Vessel cut off, occlusion consistent with thrombus at the right MCA trifurcation M2 branch approximately 1.8 cm from the origin of the right MCA. Significant asymmetrically decreased appearing vascular distribution of the right MCA compared to the left. Left MCA and branches appear intact. Basilar artery: Unremarkable. Posterior cerebral arteries: Unremarkable. Other major branches of the posterior circulation: Unremarkable. Major venous structures: Unremarkable. Other findings: No lymphadenopathy. Lung apices are clear. Compression deformity and sclerosis at C7 and superior endplate of T1 sagittal 85. Age-indeterminate fracture deformity of the manubrium for example sagittal 85. Multilevel spondylosis/discogenic change.. CT/STROKE CTA Head AND Neck W/Con IMPRESSION: Vessel cut off, occlusion consistent with thrombus at the right MCA trifurcatio n M2 branch approximately 1.8 cm from the origin of the right MCA. Significant asymmetrically decreased appearing vascular dist ribution of the right MCA compared to the left. Soft and calcific plaque formation at the right common carotid bifurcation with approximate 50% luminal narrowing. Contrast is seen beyond throughout the undulating right internal carotid artery. Results discussed by phone by myself with Dr. Bowden at 1:35 a.m. 01/28/2025 One or more dose reduction techniques were used (e.g., Automated exposure contr ol, adjustment of the mA and/or kV according to patient size, use of iterative reconstruction technique). Reading Location: [id number]
[2025-01-28 06:25] LABS: Absolute Lymphocyte Count 1.94 X10^3/uL (0.83-4.51); Basophil# 0.11 X10^3/uL; Basophil% 1.7 % (0-1); Eosinophil# 0.51 X10^3/uL; Hematocrit 46.5 % (37-47); Hemoglobin 14.8 g/dL (12.0-15.0); Lymphocyte # 1.94 X10^3/ul (0.83-4.51); Lymphocyte % 30.3 % (19-41); Mean Corp Hgb Conc 31.8 g/dL (32-36); Mean Corpuscular Hgb 27.6 pg (27.0-32.0); Mean Corpuscular Volume 86.6 fL (81-99); Mean Platelet Vol. 11.1 fl (6.2-12.0); Monocyte# 0.81 X10^3/uL; Monocyte% 12.6 % (0-10); NRBC Flagged by Analyzer 0 % (0-5); Neutrophil # 3.01 X10^3/uL (2.7-7.7); Neutrophil % 46.9 % (47-70); Platelet Count 186 K/mm3 (150-450); RBC Distribution Width CV 14.3 % (11.6-14.6); RBC Distribution Width SD 45.1 fl (35.1-43.9); Red Blood Count 5.37 M/mm3 (4.2-5.4); White Blood Count 6.4 K/mm3 (4.4-11.0)
[2025-01-28 06:43] LABS: Troponin T High Sensitivity 18 ng/L (<=14)
[2025-01-28 06:50] LABS: International Normalized Ratio 1.1
[2025-01-28 06:51] LABS: Partial Thromboplast Time 30.5 Seconds (24.1-36.2)
[2025-01-28 06:54] LABS: Anion Gap 11 (5-15); BUN 18 mg/dL (4-19); BUN/Creat Ratio 25.4 RATIO (10-20); Calcium 9.4 mg/dL (7.6-11.0); Chloride 103 mmol/L (96-108); Creatinine, Serum 0.69 mg/dL (0.70-1.20); EST Glomerular Filtration Rate 84 (>60); Estimated Creatinine Clearance 33.47 ml/min (50-250); Glucose 187 mg/dL (70-99); Potassium 3.6 mmol/L (3.3-5.1); Sodium Level 137 mmol/L (133-145)
--- NOTE | 2025-01-28 07:18 | ED.RN ---
delay in NIHSS due to power outage.
--- NOTE | 2025-01-28 07:49 | ED.RN ---
Melani Garcia notified patient being transferred to [facility]
[2025-01-28 07:51] LABS: Bedside Glucose 193 mg/dL (74-106)
--- NOTE | 2025-01-28 07:57 | ED.RN ---
Report called to Debby at [facility] ED
== END 2025-01-28 07:58 | disposition short-term general hospital (02) ==
PROVIDERS: Emergency Provider Emergency Medicine; PCP Internal Medicine; Visit Provider Emergency Medicine
DX: I63.511 Cerebral infarction due to unspecified occlusion or stenosis of right middle cerebral artery (principal); I11.0 Hypertensive heart disease with heart failure; I50.9 Heart failure, unspecified; I48.91 Unspecified atrial fibrillation; E11.9 Type 2 diabetes mellitus without complications; Z79.4 Long term (current) use of insulin; I25.10 Atherosclerotic heart disease of native coronary artery without angina pectoris; E78.00 Pure hypercholesterolemia, unspecified; Z87.891 Personal history of nicotine dependence; Z79.82 Long term (current) use of aspirin; Z79.899 Other long term (current) drug therapy
CPT/HCPCS: 51702; 70450; 70496; 70498; 80048; 82962; 84484; 85025; 85610; 85730; 93005; 99285; Q9967; A4216